=== PATIENT | female | born 1945 | race Caucasian/White ===

== ENCOUNTER 2023-03-05 13:53 | Outpatient (OUT) | payer MEDICARE, SELFPAY ==
--- NOTE | 2023-03-05 14:08 | MM_ITS ---
Patient: WILEY RAYMUNDO Exam Date: 03/05/2023 : 1945 Gender:F Ordering : DR ANJELICA SCHWARTZ Admission #: [id number] Family : Order #: [id number] CLICK HERE TO VIEW EXAM RADIOLOGY REPORT PROCEDURE: MM TOMOSYNTHESIS SCREENING BI COMPARISON: MG MAMM SCREEN ARINAA W CAD, 08/27/2017. MG MAMM SCREEN ARIANA W CAD, 02/02/2015. MG MAMM SCREEN ARIANA W CAD, 08/15/2013. MG MAMM SCREEN ARIANA W CAD, 08/30/2010. INDICATIONS: Mammogram screening Z12.31 Calculator Name NCI Breast Cancer Risk Assessment Tool 5 Year Breast Cancer Risk 1.20% Lifetime Breast Cancer Risk 1.80% Personal Breast Cancer No Personal Ovarian Cancer No Treatments None Family Cancers Mother with unknown cancer at age ~65. LOCATION: [facility] BREAST COMPOSITION: Almost entirely fatty. FINDINGS: DIAGNOSTIC CATEGORY 2--BENIGN FINDING: RIGHT BREAST: No significant suspicious finding. No significant change has occurred. LEFT BREAST: No significant suspicious finding. Scattered benign-appearing lymph nodes are present. No significant change has occurred. RECOMMENDATIONS: ROUTINE MAMMOGRAM AND CLINICAL EVALUATION IN 12 MONTHS. PLEASE NOTE: A NORMAL MAMMOGRAM DOES NOT EXCLUDE THE POSSIBILITY OF BREAST CANCER. A CLINICALLY SUSPICIOUS PALPABLE LUMP SHOULD BE BIOPSIED. Dictated by: Jose Casarez M.D. on 03/10/2023 at 12:44 Approved by: Jose Casarez M.D. on 03/10/2023 at 13:20
== END 2023-03-05 13:54 ==
PROVIDERS: PCP Family Medicine; Visit Provider Family Medicine
DX: Z12.31 Encounter for screening mammogram for malignant neoplasm of breast (principal); Z80.9 Family history of malignant neoplasm, unspecified
CPT/HCPCS: 77063; 77067

== ENCOUNTER 2024-02-02 18:44 | Emergency (ER) | payer MEDICARE, SELFPAY ==
[2024-02-02 19:03] VITALS: BP 142/88; PULSE 58; TEMP 36.8; O2SAT 97; BMI 25.4
--- NOTE | 2024-02-02 19:23 | ED_ITS ---
HPI HPI - Extremity Injury (Upper) General Chief Complaint: Extremity Injury, Upper Stated Complaint: Upper Extremity injury Time Seen by Provider: 02/02/24 19:22 Mode of arrival: Wheelchair History of Present Illness HPI narrative: This 79-year-old female who is on Eliquis for history of atrial fibrillation and also takes baby aspirin presents for evaluattion of bleeding from a laceration that occurred around 3:30 PM. The patient's neighbors dogs were outside playing and became excited when they saw her and jumped on her. One of the dogs fingernails struck her on the right forearm causing bleeding from that site. There has been his rapid several times the bleeding has not stopped. She denies any chest pain or shortness of breath. She has approximately 1.5 cm V-shaped laceration to the right mid forearm. She has no numbness or tingling. She did not fall when she was injured. Related Data Home Medications ?Medication ?Instructions ?Recorded ?Confirmed apixaban 5 mg tablet (Eliquis) 5 mg PO Q12H 02/02/24 02/02/24 Allergies Allergy/AdvReac Type Severity Reaction Status Date / Time ezetimibe [From Zetia] Allergy Cramping Verified 02/02/24 19:09 of the Muscles Opioid HPI Opioid Management Most Recent Pain and Opioid Data: No Data to Display Review of Systems ROS Status of ROS 10 or more systems reviewed and unremark able except as noted in history and below Exam Narrative Exam Narrative: Nurses note and vital signs reviewed and patient is not hypoxic.She is mildly bradycardic with a pulse of 58 General: The patient appears well and in no apparent distress. She has a resting tremor. Skin: Warm, dry, no pallor noted. There is no rash noted. Head: Normocephalic, atraumatic Eye: Normal conjunctiva, no drainage, EOMI. PERRLa Cardiovascular: Regular Rate and Rhythm S1S2, no murmurs, rubs or gallops Respiratory: Patient is in no distress, no accessory muscle use, lungs are clear to auscultation, no wheezing, rales or rhonchi Back: non-tender, no CVA tenderness bilaterally to percussion. GI: Normal bowel sounds, no tenderness to palpation, no masses appreciated. No rebound, guarding, or rigidity noted. Musculoskeletal: 1.5 cm V shaped laceration with mild active bleeding at the mid right forearm, N/V/M intact Neurological: A&O x4, normal speech Psychiatric: Cooperative Constitutional Vital Signs, click to edit/add: Last Vital Signs Temp 98.2 F 02/02/24 19:03 Pulse 58 L 02/02/24 19:03 Resp 18 02/02/24 19:03 BP 142/88 H 02/02/24 19:03 Pulse Ox 97 02/02/24 19:03 Course Vital Signs Vital signs: Vital Signs Temperature 98.2 F 02/02/24 19:03 Pulse Rate 58 L 02/02/24 19:03 Respiratory Rate 18 02/02/24 19:03 Blood Pressure 142/88 H 02/02/24 19:03 Pulse Oximetry 97 02/02/24 19:03 Temperature 98.2 F 02/02/24 19:03 Pulse Rate 58 L 02/02/24 19:03 Respiratory Rate 18 02/02/24 19:03 Blood Pressure 142/88 H 02/02/24 19:03 Pulse Oximetry 97 02/02/24 19:03 Discharge Plan Discharge Stand Alone Forms: Portal Instructions Chief Complaint: Extremity Injury, Upper Clinical Impression: Forearm laceration Patient Disposition: Home, Self-Care Time of Disposition Decision: 20:46 Condition: Good Prescriptions / Home Meds: No Action Eliquis 5 mg tablet 5 mg PO Q12H Print Language: Occitan Instructions: Laceration Without Closure (ED) Additional Instructions: Keep the dressing in place for 24 hours before removing it. Replace steri-strips and gauze as needed for recurrent bleeding. Return to the ED as needed for recurrent bleeding or any concerns. Referrals: SONJA QUEZADA [Primary Care Provider] - 1 week Procedures ED Procedure Instructions Procedures Procedures: Procedure note: right forearm laceration repair; The dressing that was applied at home was taken down revealing a large clots. This was removed and the laceration was evaluated. There is mild active bleeding. The forearm was cleaned with Hibiclens and water and gelfoam was applied topically and a pressure dressing was placed over the site. This did not stop the bleeding and I attemp malina to apply skin adhesive glue but the bleeding persisted. A Quik Clot gauze was then applied topically and another pressure dressing was applied. On re- evaluation, the bleeding has decreased and 3 1/2 inch steri strips were applied over the laceration site and another piece of Quik Clot gauze and pressure dressing was applied. The wound was re-evaluated and there is no active bleeding Through the gauze. This dressing was not taken down. The patient was instructed to leave the dressing in place for at least 24 hours. She was given extra Steri-Strips, gauze and Coban to use if there is recurrent bleeding. She was also instructed to return to emergency department if the bleeding soaks through the gauze.Tetanus was updated in emergency department and she was discharged home with her .
[2024-02-02] MEDS: ADACEL DIPH,PERTUSS(ACELL),TET VAC/PF 0.5 ML ADULT SYRINGE IM (21:00)
[2024-02-02 21:07] VITALS: BP 132/78; PULSE 87; O2SAT 97
== END 2024-02-02 21:00 | disposition home or self-care (01) ==
PROVIDERS: Emergency Provider Emergency Medicine; PCP Family Medicine
DX: S51.811A Laceration without foreign body of right forearm, initial encounter (principal); W54.1XXA Struck by dog, initial encounter; Z23 Encounter for immunization; Z79.01 Long term (current) use of anticoagulants; Z79.82 Long term (current) use of aspirin; I48.91 Unspecified atrial fibrillation
CPT/HCPCS: 12001; 90471; 90715; 99283

== ENCOUNTER 2024-03-08 12:36 | Outpatient (OUT) | payer MEDICARE, SELFPAY ==
--- NOTE | 2024-03-08 12:40 | MM_ITS ---
Patient Name: WILEY RAYMUNDO MR#: [id number] : 1945 Exam Date: 03/08/2024 Ordering Doctor: DR. SONJA QUEZADA . RADIOLOGY REPORT PROCEDURE: MM TOMOSYNTHESIS SCREENING BI COMPARISON: MG MAMM SCREEN ARIANA W CAD, 08/27/2017. MM TOMOSYNTHESIS SCREENING BI, 03/05/2023. INDICATIONS: Screening Calculator Name NCI Breast Cancer Risk Assessment Tool 5 Year Breast Cancer Risk 1.20% Lifetime Breast Cancer Risk 1.70% Personal Breast Cancer No Personal Ovarian Cancer No Treatments None Family Cancers Mother with unknown cancer at age ~65. LOCATION: [facility] BREAST COMPOSITION: The breasts are almost entirely fatty. FINDINGS: DIAGNOSTIC CATEGORY 1--NEGATIVE. NO CHANGE FROM COMPARISON ASSESSMENT. Scattered benign-appearing calcifications are present. RIGHT BREAST: No significant suspicious finding. LEFT BREAST: No significant suspicious finding. RECOMMENDATIONS: ROUTINE MAMMOGRAM AND CLINICAL EVALUATION IN 12 MONTHS. PLEASE NOTE: A NORMAL MAMMOGRAM DOES NOT EXCLUDE THE POSSIBILITY OF BREAST CANCER. A CLINICALLY SUSPICIOUS PALPABLE LUMP SHOULD BE BIOPSIED. Dictated by: Edwardo Baron MD on 03/08/2024 at 13:50 Approved by: Edwardo Baron MD on 03/08/2024 at 13:51
--- NOTE | 2024-03-08 12:41 | XR_ITS ---
[address] [address] Patient Name: WILEY RAYMUNDO MRN: [id number] date: 1945 Sex: F Assigned Patient Location: MAMM Current Patient Location: 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 TECHNIQUE: Dual-energy X-ray absorptiometry (DEXA) bone density study performed for the axial skeleton. 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 Young adult T score -2.6. WHO classification: Osteoporosis. Lowest bone mineral density right femoral trochanter measuring 0.469 g/sq cm. T score -3.3. WHO classification: Osteoporosis XR/XR DEXA axial skeleton IMPRESSION: Osteoporosis. High fracture risk Electronically authenticated by: MATT WU Date: 03/08/2024 13:30
== END 2024-03-08 12:37 | disposition home or self-care (01) ==
LOC: MAMMO 12:37
PROVIDERS: PCP Family Medicine; Visit Provider Family Medicine
DX: Z12.31 Encounter for screening mammogram for malignant neoplasm of breast (principal); E28.39 Other primary ovarian failure; Z80.8 Family history of malignant neoplasm of other organs or systems; M81.0 Age-related osteoporosis without current pathological fracture
CPT/HCPCS: 77063; 77067; 77080

== ENCOUNTER 2025-06-08 14:06 | Outpatient (OUT) | payer MEDICARE, SELFPAY ==
--- NOTE | 2025-06-08 14:10 | MM_ITS ---
Patient Name: WILEY RAYMUNDO MR#: [id number] : 1945 Exam Date: 06/08/2025 Ordering Doctor: DAVID NERI . RADIOLOGY REPORT PROCEDURE: MM TOMOSYNTHESIS SCREENING BI COMPARISON: MM TOMOSYNTHESIS SCREENING BI, 03/08/2024. MM TOMOSYNTHESIS SCREENING BI, 03/05/2023. MG MAMM SCREEN ARIANA W CAD, 08/27/2017. MG MAMM SCREEN ARIANA W CAD, 08/30/2010. INDICATIONS: screening Calculator Name NCI Breast Cancer Risk Assessment Tool 5 Year Breast Cancer Risk 1.10% Lifetime Breast Cancer Risk 1.50% Personal Breast Cancer No Personal Ovarian Cancer No Treatments None Family Cancers Mother with unknown cancer at age ~65. LOCATION: [facility] BREAST COMPOSITION: There are scattered areas of fibroglandular density. FINDINGS: DIAGNOSTIC CATEGORY 1--NEGATIVE. RIGHT BREAST: No significant suspicious finding. LEFT BREAST: No significant suspicious finding. RECOMMENDATIONS: ROUTINE MAMMOGRAM AND CLINICAL EVALUATION IN 12 MONTHS. Dictated by: Edy Cornejo DO on 06/08/2025 at 15:28 Approved by: Edy Cornejo DO on 06/08/2025 at 15:29
--- OUTSIDE RECORDS SUMMARY | 2025-06-08 14:35 | XMS_ITS | CCD ---
Author Organization [facility] Care Team Providers Care Coal Equipment Operator Name Role Phone Fortunato Schwartz Unavailable Unavailable Unavailable HEBER RUTH Attending Unavailable HEBER RUTH Admitting Unavailable DR GRETCHEN DAVIS Primary Care Unavailable Tish Smith Consulting Unavailable HEBER [facility] Consulting Unavailable Fortunato Schwartz MD Primary Care Provider Edwardo Rodriguez Jr. Unavailable [phone] Fortunato Schwartz MD Primary Care Provider Edwardo Rodriguez Jr. Unavailable Fortunato Schwartz MD Primary Care Provider Michael Valenzuela DO, David L Unavailable Fortunato Schwartz Primary Care Unavailab Dr. Michele Daniels Referring Unavailable Dr. Michele Sol Attending Unavailable Dr. Michele Sol Attending Unavailable Fortunato Schwartz Primary Care Unavailab Dr. Michele Daniels Referring Unavailable Fortunato Schwartz MD Primary Care Provider Michael Valenzuela DO, David L Unavailable [phone] Dr. Michele Sol Attending Dr. Fortunato Carson Primary Care Fortunato Carson MD Primary Care Provider Sonja Quezada Primary Care Physician [phone] Fortunato Schwartz MD Primary Care Provider Sonja Quezada MD Primary Care Provider Fortunato Schwartz MD Primary Care Unavailable Fortunato Schwartz MD Primary Care Unavailable CARMELA MUNSON Primary Care Unavailable NON STAFF Primary Care Provider UnavailBladimir Clarke DO Emergency Provider [phone] Erwin Childers DO Emergency Provider [phone] Sonja Quezada MD Primary Care Provider Marcos Neves DO Admit Provider [phone] Acosta Bo MD Attending Provider Natty Stout MD Referring Provider Sonja Quezada Primary Care Unavailable Erwin Childers Attending Unavailable Erwin Childers Admitting Unavailable Sonja Quezada Primary Care Unavailable Natty Stout Referring Unavailable Acosta Bo Attending Unavailab Eliezer Londono Unavailable Marcos Neves Admitting UnavailSonja Ramirez MD Primary Care Provider MICHELE SOL Attending Unavailable MICHELE SOL Referring Unavailable FORTUNATO SCHWARTZ Primary Care Unavailab GILBERTO Olmedo Referring Unavailable SONJA QUEZADA Primary Care Unavailable GILBERTO GAONA Referring Unavailable SONJA QUEZADA Primary Care Unavailable GILBERTO GAONA Referring Unavailable DAMIEN SONJACHRISTOPHER MCRAE Primary Care Unavailable GILBERTO GAONA Attending Unavailable SONJA QUEZADA Primary Care Unavailable MD Sonja Quezada Attending Unavailable BRAULIO Guardado Attending Unavailable MD Sonja Quezada Attending Unavailable MD Sonja Quezada Attending Unavailable MD Sonja Quezada Attending Unavailable MD Sonja Quezada Attending Unavailable MD Sonja Quezada Attending Unavailable MD Sonja Quezada Attending Unavailable MD Sonja Quezada Attending Unavailable MD Sonja Quezada Admitting Unavailable MD Sonja Quezada Attending Unavailable BRAULIO Guardado Attending Unavailable TEMO DAVIS Attending Unavailable NORBERT DAILEY Referring Unavailable SONJA QUEZADA Primary Care Unavailable MATTHEW OSBORN Attending Unavailable NORBERT DAILEY Referring Unavailable SONJA QUEZADA Primary Care Unavailable NORBERT DAILEY Referring Unavailable SONJA QUEZADA Primary Care Unavailable NORBERT DAILEY Attending Unavailable Allergies Allergy Classification Reported Allergen(s) Allergy Type Date of Onset Reaction(s) Facility (7 sources) Angiotensin Converting Enzyme (Osbaldo) Inhibitors; Translations: [OSBALDO Inhibitors] Allergy to drug (finding) 3 [facility] 3 Repository (20 sources) ezetimibe; Translations: [Zetia] Drug Allergy 9 Other: See Comments, Other [facility] (6 sources) Hmg-Coa Reductase Inhibitors (Statins) All[facility] drug [facility]finding[facility] Work Phone: (11 sources) Metoprolol; Translations: [metoprolol] Drug Allergy 3 Shortness of breath [facility] 250 DO Work Phone: (20 sources) Ethanol; Translations: [Alcohol] Drug Allergy 9 [facility] (4 sources) Angiotensin-con verting enzyme inhibitor agent Drug Intolerance 3 [facility] (5 sources) HMG-CoA reductase inhibitor; Translations: [GAZIPBS-IDF-HG A REDUCTASE INHIBITORS] Drug Allergy 3 [facility] Work Phone: (2 sources) atorvastatin; Translations: [atorvastatin] Drug Allergy [facility] (2 sources) Cetirizine; Translations: [cetirizine] Drug Allergy [facility] (1 source) Alcohol 1 Propensity to adverse reactions to substance [facility] Comment on above: cannot drink any alc ohol (1 source) Ethanol; Translations: [ethanol] Drug Allergy [facility] (5 sources) ezetimibe; Translations: [ezetimibe] Drug Allergy 9 Muscle Pain [facility] (2 sources) ethyl alcohol; Translations: [ethyl alcohol] Allergy to substance 5 [facility] Comment on above: Gets hives all over her abdomen from wine, and other forms of alcohol. (2 sources) Hfmgoep-FJK-NqF Reductase Inhibitor; Translations: [Whoxwcs-KHQ-Uc A Reductase Inhibitor] Allergy to substance 5 [facility] (3 sources) Sotalol; Translations: [SOTALOL] Drug Allergy 5 Shortness of breath, Other, Blurred vision [facility] Medications Current Medications Medication Drug Class(es) Dates Sig (Normalized) Sig (Original) ALPRAZolam 0.5 mg oral tablet (20 sources) Benzodiazepine Start: 05-27-2019 ALPRAZolam (XANAX) 0.5 mg tablet 05/27/2019 Active Start: 05-27-2019 ALPRAZolam (XA NAX) 0.5 mg tablet 05/27/2019 Active apixaban 5 mg oral tablet (20 sources) Factor Xa Inhibitor Start: 02-17-2025 take 1 tablet by mouth twice daily Apixaban (Eliquis) 5 mg Tablet Active 5 MG PO Twice daily 60 February 17, 2025 1:53pm Start: 10-13-2023 End: 04-07-2022 Eliquis 5 mg oral tablet 5 m g = 1 tab(s), Oral, BID, Oral, 0 Refill(s), Refills(s) 0 Start Date: 10/13/23 Status: Ordered Start: 11-25-2021 End: 02-17-2025 take 1 tablet by mouth twice daily Apixaban (Eliquis) 5 mg Tablet Discontinued 5 MG PO Twice daily November 25, 2021 1:00am February 17, 2025 1:53pm apixaban (ELIQUI S ORAL) Take 5 mg by mouth. 0 Active Comment on above: Take 5 mg by mouth. Take 5 mg by mouth t wice daily. aspirin 81 mg chewable tablet (20 sources) Platelet Aggregation Inhibitor, Nonsteroidal Anti-inflammatory Drug Start: 02-17-2025 take 1 tablet by mouth once daily Aspirin (Children's Aspirin) 81 mg Tablet,Chewable Active 81 MG PO Daily 0 February 17, 2025 12:00am Start: 11-25-2021 End: 02-17-2025 Aspirin 81 mg Capsule Discon tinued 81 MG PO .mwf November 25, 2021 1:00am February 17, 2025 1:59pm take 1 tablet by silvia three times weekly aspirin, enteric coated (ASPIRIN, ENTERIC COATED) 81 mg EC tablet Take 81 mg by mouth three times a week. Active End: 04-07-2022 take 1 tablet by mouth once daily aspirin 81 mg EC tablet Take 1 tablet (81 mg) by mouth once daily. Active Comment on above: Take 81 mg by mouth once daily. Take 81 mg by mouth three times a week. chondroitin sulfates 400 mg / glucosamine hydrochloride 500 mg oral tablet (3 sources) take 2 tablets by mouth once daily glucosamine-chondroi tin 500-400 mg tablet Take 2 tablets by mouth once daily. Active clopidogrel 75 mg oral tablet (5 sources) P2Y12 Platelet Inhibitor Start: End: take 1 tablet by mouth once daily clopidogrel (Plavix) 75 mg tablet Indications: Paroxysmal atrial fibrillation (Multi) Take 1 tablet (75 mg) by mouth once daily. 90 tablet 3 02/22/2025 02/22/2026 Active Start: 02-17-2025 take 1 tablet by [facility] once daily Clopidogrel 75 mg Tablet Active 75 MG PO Daily February 17, 2025 12:00am Start: 10-15-2020 Clopidogrel Bi sulfate 75 MG Oral Tablet Quantity: 90 Refills: 0 Ordered: 15-Oct-2020 DO Start : 15-Oct-2020 Complete esomeprazole 40 mg delayed release oral capsule (20 sources) Proton Pump Inhibitor Start: 06-25-2021 End: 10-03-2024 esomeprazole (NEXIUM) 40 mg capsule TAKE 1 CAPSULE TWICE DAILY 180 capsule 3 10/03/2024 Active Start: 06-24-2021 take 1 capsule by [facility] once daily Esomeprazole Magnesium 40 mg capsule,delayed release(DR/EC) Active 40 MG PO Daily November 25, 2021 1:00am Comment on above: TAKE 1 CAPSULE TWICE DAILY Take 1 capsule by [facility] twice daily. fluticasone propionate 0.05 mg/actuat metered dose nasal spray (20 sources) Corticosteroid Start: 08-02-2021 Fluticasone Propionate 50 MCG/ACT Nasal Suspension USE DIRECTED. Quantity: 0 Refills: 0 Ordered: 02-Aug-2021 DO Start : 02-Aug-2021 Active Start: 05-09-2019 fluticasone (F LONASE) 50 mcg/actuation nasal spray 05/10/2019 Active furosemide 40 mg oral tablet (20 sources) Loop Diuretic Start: 05-09-2019 furosemide (LASIX) 40 mg tablet 05/10/2019 Active levocetirizine dihydrochloride 5 mg oral tablet (5 sources) Histamine-1 Receptor Antagonist Start: 05-13-2023 take 1 tablet by mouth once daily Levocetirizine 5 mg tablet Active 5 MG PO Daily December 05, 2024 12:00am levothyroxine sodium 0.075 mg oral tablet (20 sources) l-Thyroxine Start: 06-10-2019 levothyroxine (SYNTHROID) 75 mcg tablet 06/10/2019 Active Start: 06-09-2019 loratadine 10 mg disintegrating oral tablet (2 sources) End: 06-07-2024 take 1 tablet by mouth once daily loratadine (Claritin Reditabs) 10 mg disintegrating tablet Take 1 tablet (10 mg) by mouth once daily. 06/07/2024 Discontinued (Therapy completed) losartan potassium 25 mg oral tablet (20 sources) Angiotensin 2 Receptor Chloé Start: 05-09-2019 End: 02-17-2025 losartan (COZAAR) 25 mg tablet 05/10/2019 Active lovastatin 20 mg oral tablet (3 sources) HMG-CoA Reductase Inhibitor Start: 12-19-2024 End: 03-08-2026 take 1 tablet by mouth once daily at mealtime lovastatin (Mevacor) 20 mg tablet Indications: Mixed hyperlipidemia Take 1 tablet (20 mg) by mouth once daily in the evening. Take with meals. 90 tablet 3 03/08/2025 03/08/2026 Active magnesium glycinate 100 mg magnesium capsule (1 source) take 2.4 capsules by mouth once daily magnesium glycinate 100 mg magnesium capsule Take 2.4 capsules (240 mg) by mouth once daily. Active 24 hr metoprolol succinate 50 mg extended release oral tablet (20 sources) beta-Adrenergic Chloé Start: 11-21-2022 End: 12-21-2022 take 1 tablet by mouth once daily metoprolol succinate ER (TOPROL XL) 50 mg 24 hr tablet Take 1 tablet by mouth once daily. 30 tablet 11/21/2022 Active Comment on above: Take 1 tablet by silvia th once daily. Miscellaneous Medical Supply ([employer]LL [employer]RA[employer] SUPERVISOR AND CONTAINER) (20 sources) Start: 08-05-2022 Miscellaneous Medical Supply ([employer] SUPERVISOR AND CONTAINER) To crush pills, dissolve in water and take it 1 Each 08/05/2022 Active Start: 08-05-2022 Miscellaneous Medical Supply ([employer] SUPERVISOR AND CONTAINER) To crush pills, dissolve in water and take it 1 Each 0 08/05/2022 Active Comment on above: To crush pills, diss olve in water and take it nitroglycerin 0.4 mg sublingual tablet (1 source) Nitrate Vasodilator Start: 02-18-20 Nitroglycerin 0.4 mg Tablet, Sublingual Active 0.4 MG SUBLINGUAL Q5M as needed for Chest Pain February 17, 2025 12:00am pitavastatin calcium 2 mg oral tablet (20 sources) HMG-CoA Reductase Inhibitor Start: 11-25-19 End: 03-08-20 take 1 tablet by mouth once daily Pitavastatin Calcium (Livalo) 2 mg Tablet Active 2 MG PO Daily November 25, 2021 1:00am Comment on above: Take 1 tablet by silvia th once daily. potassium 99 mg extended release oral tablet (20 sources) Start: 11-25-19 take 1 tablet by mouth once daily Potassium 99 mg Tablet Active 99 MG PO Daily November 25, 2021 1:00am Start: 11-25-2021 Potassium 99 m g Tablet Active MG TABLET November 25, 2021 1:00am take 300 mg by mouth once daily POTASSIUM ORAL Take 300 mg by mouth once daily. Active take 1 tablet by silvia th three times daily Potassium 99 MG Oral Tablet TAKE 1 TABLET 3 times daily Quantity: 0 Refills: 0 Ordered: 13-Aug-2021 DO Active take 300 mg by mouth once daily POTASSIUM ORAL Take 300 mg by mouth once daily. 0 Active Comment on above: Take 300 mg by mouth once daily. potassium citrate (5 sources) Start: 10-13-2023 potassium citr ate See Instructions, 99 twice a day, Refills(s) 0 Start Date: 10/13/23 Status: Ordered take 1 tablet by mouth twice homer ly potassium citrate 99 mg capsule Take 1 tablet by mouth 2 times a day. Active take 1 tablet by mouth three es daily potassium citrate 99 mg capsule Take 1 tablet by mouth 3 times a day. Active SITagliptin 100 mg oral tablet (20 sources) Dipeptidyl Peptidase 4 Inhibitor Start: 11-11-2020 take 1 tablet by mouth once daily SITagliptin phosphate (Januvia) 100 mg tablet Take 1 tablet (100 mg) by mouth once daily. 11/12/2020 Active Comment on above: Take 100 mg by mouth once daily. sotalol hydrochloride 80 mg oral tablet (1 source) Antiarrhythmic Start: 02-17-2025 take 1 tablet by mouth twice daily Sotalol 80 mg Tablet Active 80 MG PO Twice daily 60 February 17, 2025 12:00am vitamin b12 0.1 mg oral tablet (2 sources) Vitamin B12 End: 06-07-2024 take 1 tablet by mouth once daily cyanocobalamin (Vitamin B-12) 100 mcg tablet Take 1 tablet (100 mcg) by mouth once daily. 06/07/2024 Discontinued (Therapy completed) Walker (ULTRA-LIGHT ROLLATOR) misc (20 sources) Start: 08-05-2022 Walker (ULTRA-LIGHT ROLLATOR) misc For mobility and to prevent fall 1 Each 08/05/2022 Active Start: 08-05-2022 Walker (ULTRA- LIGHT ROLLATOR) misc For mobility and to prevent fall 1 Each 0 08/05/2022 Active Comment on above: For mobility and to prevent fall Completed/Discontinued Medications Medication Drug Class(es) Dates Sig (Normalized) Sig (Original) amoxicillin 500 mg oral capsule (2 sources) Penicillin-class Antibacterial Start: 05-28-2021 take 1 capsule by mouth every eight hours Amoxicillin 500 MG Oral Capsule TAKE 1 CAPSULE BY MOUTH EVERY 8 HOURS UNTIL GONE Quantity: 30 Refills: 0 Ordered: 28-May-2021 DO Start : 28-May-2021 Complete amoxicillin 875 mg / clavulanate 125 mg oral tablet (2 sources) Penicillin-class Antibacterial Start: 12-05-2024 End: 02-11-2025 take 1 tablet by mouth twice daily Amoxicillin-Pot Clavulanate 875-125 mg tablet Discontinued 1 TAB PO Twice daily 10 December 05, 2024 12:00am February 11, 2025 1:19pm azithromycin 250 mg oral tablet (2 sources) Macrolide Antimicrobial Start: 12-05-2024 End: 02-11-2025 take 2 tablets by mouth once daily Azithromycin 250 mg tablet Discontinued 250 MG PO Daily 4 December 05, 2024 12:00am February 11, 2025 1:19pm start on day 2 of therapy ciprofloxacin 3 mg/ml ophthalmic solution (2 sources) Quinolone Antimicrobial Start: 03-25-2021 take 1 drop(s) into the eye(s) four times daily Ciprofloxacin HCl - 0.3 % Ophthalmic Solution INSTILL 1 DROP into affected eye FOUR TIMES DAILY DIRECTED for 14 days Quantity: 2 Refills: 0 Ordered: 23-May-2021 DO Start : 25-Mar-2021 Complete citalopram 10 mg oral tablet (2 sources) Serotonin Reuptake Inhibitor Start: 03-01-2021 Citalopram Hydrobromide 10 MG Oral Tablet Quantity: 90 Refills: 0 Ordered: 01-Mar-2021 DO Start : 01-Mar-2021 Complete fexofenadine hydrochloride 180 mg oral tablet (20 sources) Histamine-1 Receptor Antagonist Start: 08-02-2021 Allergy Relief 180 MG Oral Tablet Quantity: 90 Refills: 0 Ordered: 02-Aug-2021 DO Start : 02-Aug-2021 Complete Start: 04-22-2019 End: 12-05-2024 take 1 tablet by mouth once daily Fexofenadine 180 mg Tablet Discontinued 180 MG PO Daily November 25, 2021 1:00am December 05, 2024 8:02pm labetalol hydrochloride 5 mg/ml injectable solution (2 sources) beta-Adrenergic Chloé Start: 05-30-2025 End: 05-30-2025 5 mg, INTRAVENOUS, ONCE, 1 dose, On Thu05/30/25 at 1530, Give additional 5 mg if the BP continues to remain high in 10 minutes Protect from Light., Recovery or Phase I (only) Start: 06-13-2024 End: 06-13-2024 take 10 mg intravenously every two hours as needed 10 mg, INTRAVENOUS, EVERY 2 HOURS NEEDED, 1 dose, Starting on Thu06/13/24 at 1615, Until Thu06/13/24 at 1622, Give for blood pressure of:, greater than 170 systolic, Protect from Light., Recovery or Phase I (only) Magnesium (6 sources) take 1 tablet by mouth once daily Magnesium 400 MG Oral Tablet Take 1 tablet daily Quantity: 0 Refills: 0 Ordered: 13-Aug-2021 DO Active magnesium oxide 400 mg oral tablet (4 sources) End: take 1 tablet by mouth once daily magnesium oxide (Mag-Ox) 400 mg tablet Take 1 tablet (400 mg) by mouth once daily. 03/08/2025 Discontinued (Discontinued by another clinician) 2 ml ondansetron 2 mg/ml injection (1 source) Serotonin-3 Receptor Antagonist Start: 5 End: 5 4 mg, INTRAVENOUS, ONCE, 1 dose, On Thu05/30/25 at 1530, Give IV push over 2 minutes, Recovery or Phase I (only) Start: 05-30-2025 End: 05-30-2025 4 mg, INTRAVENOUS, ONCE, 1 d ose, On Thu05/30/25 at 1530, Give IV push over 2 minutes, Recovery or Phase I (only) rivaroxaban 20 mg oral tablet (2 sources) Factor Xa Inhibitor Start: 12-04-2020 take 1 tablet by mouth once daily Xarelto 20 MG Oral Tablet TAKE 1 TABLET BY MOUTH DAILY Quantity: 90 Refills: 0 Ordered: 04-Dec-2020 DO Start : 04-Dec-2020 Active ubidecarenone 200 mg oral capsule (12 sources) Start: 10-13-2023 End: 06-07-2024 ubiquinone 200 mg oral capsule 200 mg, Oral, Daily, Oral, 0 Refill(s), Refills(s) 0 Start Date: 10/13/23 Status: Ordered Start: 11-25-2021 End: 02-11-2025 Coenzyme Q10 (Coq-10) 100 mg Capsule Discontinued 100 MG PO Daily November 25, 2021 1:00am February 11, 2025 1:19pm Vitamin B12 TABS (6 sources) Vitamin B12 TABS TAKE 1 TABLET DAILY DIRECTED. Quantity: 0 Refills: 0 Ordered: 13-Aug-2021 DO Active Problems Active Problems Problem Classification Problem Date Documented Date Episodic/Chronic Acute myocardial infarction (2 sources) Myocardial infarction; Translations: [Non-ST elevation (NSTEMI) myocardial infarction] Onset: 02-11-2025 02-17-2025 Chronic Anxiety disorders (20 sources) Generalized anxiety disorder; Translations: [Generalized anxiety disorder] Onset: 04-07-2022 04-07-2022 Chronic Comment on above: Problem List clean-u p per request of Phys. EHR Cmte Cardiac dysrhythmias (20 sources) Paroxysmal atrial fibrillation; Translations: [Atrial fibrillation] Onset: 09-05-2021 09-05-2021 Chronic Cardiac dysrhythmias (3 sources) Bradycardia; Translations: [Bradycardia, unspecified] Onset: 02-28-2025 02-28-2025 Episodic Chronic kidney disease (20 sources) Chronic kidney disease stage 2; Translations: [Chronic kidney disease, stage 2 (mild)] Onset: 04-07-2022 04-07-2022 Chronic Chronic kidney disease (2 sources) Chronic kidney disease; Translations: [Chronic kidney disease, stage 3b (Multi)] Onset: 03-08-2025 Complication of device; implant or graft (16 sources) Arteriosclerosis of coronary artery bypass graft; Translations: [Coronary atherosclerosis of unspecified bypass graft] Onset: 12-22-2022 08-04-2023 Chronic Coronary atherosclerosis and other heart disease (20 sources) Coronary arteriosclerosis; Translations: [Coronary atherosclerosis of unspecified type of vessel, chilkat or graft] Onset: 06-18-2019 Resolved: 06-07-2024 06-18-2019 Chronic Diabetes mellitus with complications (4 sources) Type 2 diabetes mellitus; Translations: [Type 2 diabetes mellitus with other specified complication] Onset: 06-12-2023 03-08-2025 Chronic Diabetes mellitus without complication (20 sources) Diabetes mellitus; Translations: [Diabetes mellitus without mention of complication, type II or unspecified type, not stated as uncontrolled] Onset: 06-18-2019 09-05-2021 Chronic Disorders of lipid metabolism (20 sources) Hyperlipidemia; Translations: [Other and unspecified hyperlipidemia] Onset: 04-07-2022 04-07-2022 Chronic E Codes: Fall (1 source) Unspecified fall, initial encounter; Translations: [UNSPECIFIED FALL INITIAL ENCOUNTER] Onset: 10-01-2021 Episodic Esophageal disorders (20 sources) Barretts esophagus with low grade dysplasia; Translations: [Haji's esophagus with low grade dysplasia] Onset: 09-05-2021 Chronic Comment on above: Problem List clean-u p per request of Phys. EHR Cmte Essential hypertension (20 sources) Benign essential hypertension; Translations: [Benign essential hypertension] Onset: 06-18-2019 06-18-2019 Chronic Headache; including migraine (4 sources) Headache; including migraine; Translations: [HEADACHE UNSPECIFIED] Onset: 09-24-2021 Heart valve disorders (20 sources) Mitral valve regurgitation; Translations: [Nonrheumatic mitral (valve) insufficiency] Onset: 04-07-2022 04-07-2022 Chronic Nonspecific chest pain (3 sources) Chest pain; Translations: [Chest pain, unspecified] Onset: 12-05-2024 12-05-2024 Episodic Other aftercare (3 sources) Long-term current use of anticoagulant; Translations: [dependency counselor (current) use of anticoagulants] Onset: 03-08-2025 03-08-2025 Episodic Other aftercare (1 source) dependency counselor (current) use of anticoagulants; Translations: [alf (current) use of anticoagulants] Onset: 03-08-2025 Episodic Other and unspecified benign neoplasm (2 sources) Mass of digestive structure; Translations: [Polyp of stomach and duodenum] Episodic Other and unspecified benign neoplasm (1 source) Gastric polyp; Translations: [Polyp of stomach and duodenum] Episodic Other hereditary and degenerative nervous system conditions (20 sources) Essential tremor; Translations: [Essential tremor] Onset: 04-07-2022 04-07-2022 Chronic Other hereditary and degenerative nervous system conditions (5 sources) Essential tremor; Translations: [Essential and other specified forms of tremor] Onset: 12-22-2022 02-17-2025 Chronic Other lower respiratory disease (4 sources) Dyspnea; Translations: [Other respiratory abnormalities] Episodic Other lower respiratory disease (2 sources) Dyspnea, unspecified; Translations: [Dyspnea, unspecified] Onset: 12-22-2022 Episodic Other lower respiratory disease (1 source) Shortness of breath; Translations: [Shortness of breath] Onset: 12-05-2024 Episodic Other nervous system disorders (1 source) Tremor; Translations: [Tremor, unspecified] 02-11-2025 Episodic Other nervous system disorders (2 sources) Tremor, unspecified; Translations: [Abnormal involuntary movements] Onset: 02-11-2025 02-17-2025 Episodic Peripheral and visceral atherosclerosis (1 source) Arteriosclerotic vascular disease 10-13-2023 Chronic Residual codes; unclassified (4 sources) Intolerance to drug; Translations: [Other drug allergy] Episodic Residual codes; unclassified (2 sources) Body mass index 20-24 - normal; Translations: [Body mass index (BMI) 24.0-24.9, adult] Onset: 03-08-2025 03-08-2025 Episodic Residual codes; unclassified (2 sources) Body mass index (BMI) 24.0-24.9, adult; Translations: [Body mass index (BMI) 24.0-24.9, adult] Onset: 03-08-2025 Episodic Thyroid disorders (20 sources) Hypothyroidism; Translations: [Hypothyroidism, unspecified] Onset: 09-05-2021 09-05-2021 Chronic Transient cerebral ischemia (20 sources) Transient cerebral ischemia; Translations: [Unspecified transient cerebral ischemia] Onset: 04-07-2022 04-07-2022 Chronic Unclassified (3 sources) Parkinson's disease; Translations: [Parkinson's disease] 11-25-2021 Chronic Unclassified (1 source) A [facility] screening has identified you as FRAIL or AT RISK FOR FRAILTY. This puts you at a higher risk for infection, illness, falls, and other injuries. Here are four ways to help you reduce your risk of frailty: 1. IDENTIFY EARLY SIGNS OF FRAILTY Discuss contributing factors and concerns with your doctor 2. BE ACTIVE Walking and light strengthening exercises will help reduce weakness 3. EAT WELL Aim for three healthy meals a day that are high in protein 4. THINK POSITIVE Keep your mind active by being sociable and continuing to learn References: Stay Strong: Four Ways to Beat the Frailty Risk [email or web address] [email or web address] 02-13-2025 Past or Other Problems Problem Classification Problem Date Documented Da te Episodic/Chronic Coronary atherosclerosis and other heart disease (4 sources) Presence of aortocoronary bypass graft; Translations: [Personal history of surgery to heart and great vessels, presenting hazards to health] Onset: 06-07-2024 02-17-2025 Episodic Open wounds of head; neck; and trunk (20 sources) Laceration of esophagus; Translations: [Laceration without foreign body of pharynx and cervical esophagus, initial encounter] Onset: 08-01-2022 08-05-2022 Episodic Other aftercare (20 sources) Postoperative state; Translations: [Encounter for other specified surgical aftercare] Onset: 07-31-2022 08-05-2022 Episodic Other circulatory disease (20 sources) History of transient ischemic attack; Translations: [Personal history of transient ischemic attack (TIA), and cerebral infarction without residual deficits] Onset: 09-05-2021 09-05-2021 Episodic Other nutritional; endocrine; and metabolic disorders (11 sources) Overweight in adulthood with body mass index of 25 or more but less than 30; Translations: [Overweight] Onset: 06-12-2023 06-12-2023 Episodic Other nutritional; endocrine; and metabolic disorders (4 sources) Overweight; Translations: [Overweight] Onset: 12-22-2022 Episodic Other nutritional; endocrine; and metabolic disorders (3 sources) Body mass index (BMI) 26.0-26.9, adult; Translations: [Body mass index [BMI] 26.0-26.9, adult] Onset: 12-22-2022 Episodic Pneumonia (except that caused by tuberculosis or sexually transmitted disease) (17 sources) Infective pneumonia; Translations: [Pneumonia, unspecified organism] Onset: 07-31-2022 Resolved: 08-05-2022 08-05-2022 Episodic Residual codes; unclassified (20 sources) Insomnia; Translations: [Insomnia, unspecified] Onset: 04-07-2022 04-07-2022 Episodic Residual codes; unclassified (8 sources) Confusional state; Translations: [Unspecified psychosis] Onset: 06-12-2023 06-12-2023 Episodic Respiratory failure; insufficiency; arrest (adult) (17 sources) Acute hypoxemic and hypercapnic respiratory failure; Translations: [Acute respiratory failure with hypoxia] Onset: 07-31-2022 Resolved: 08-05-2022 08-05-2022 Episodic Screening and history of mental health and substance abuse codes (12 sources) Ex-smoker; Translations: [Personal history of tobacco use] Onset: 06-07-2024 06-07-2024 Episodic Comment on above: QUIT APPROX 30 YRS A GO SMOKED 3PPD; Unclassified (4 sources) Onset: 08-04-2023 Resolved: 06-07-2024 08-04-2023 Results Test Name Value Interpretation Reference Range Facility ANES POSTPROC EVALon 025 ANES POSTPROC EVAL HNO ID: [id number] Author: THANIA CHURCH MD Service: ? Author Type: Anesthesiologist Type: Anesthesia Postprocedure Evaluation Filed: 05/30/2025 14:04 Note Text: POST ANESTHESIA EVALUATION NOTE : 1945 Procedure Summary Date: 05/30/25 Room / Location: Gastroenterology Anesthesia Start: 1302 Anesthesia Stop: 1353 Procedure: EGD - THERAPEUTIC, EUS, OR TUBE INTERVENTIONS Diagnosis: Haji's esophagus with low grade dysplasia (Follow-up of previous ablation treatment of Haji's esophagus) Scheduled Providers: Norbert Dailey MD; Thania Church MD; Aura Feldman APRN.LEVEE SUPERINTENDENT Responsible Provider: Thania Church MD Anesthesia Type: MAC ASA Status: 3 Anesthesia Type: MAC Last Vitals Vitals Value Taken Time BP 121/81 05/30/25 13:57 Temp 36 ?C (96.8 ?F) 05/30/25 13:57 Pulse 84 05/30/25 14:02 Resp 18 05/30/25 13:57 SpO2 94 % 05/30/25 14:02 Vitals shown include unfiled device data. Post Anesthesia Patient Status Patient Evaluation: PACU. PACU/ICU Patient Condition: stable. Neurological Status: aware and responsive. Pulmonary Status: breathing comfortably on supplemental oxygen Airway Control: returned to baseline unsupported. Cardiovascular Status: stable. Pain Management: clinically adequate Postoperative Hydration: acceptable. Intraoperative Events: no significant anesthesia events Post Operative Nausea/Vomiting Status: no significant post operative nausea or vomiting Recommendation: continue current plan of care and further care per PACU/ICU/floor team. Anesthesia Observations No Documentation SIGNATURE: Thania Church MD PATIENT NAME: Daniela Raymundo DATE: May 30, 2025 TIME: 2:04 PM CSN: [id number] Normal [facility] ANES PRE-OPon 05-30-2025 ANES PRE-OP HNO ID: [id number] Author: THANIA CHURCH MD Service: ? Author Type: Anesthesiologist Type: Anesthesia Preprocedure Evaluation Filed: 05/30/2025 12:36 Note Text: ANESTHESIOLOGY DAY OF SURGERY NOTE : 1945 Procedure Information Date/Time: 05/30/25 1300 Scheduled providers: Norbert Dailey MD; Thania Church MD; Gaston, Aura J, MILLINERY COPYIST.LEVEE SUPERINTENDENT Procedure: EGD - THERAPEUTIC, EUS, OR TUBE INTERVENTIONS Location: Gastroenterology Estimated body mass index is 22.86 kg/m? as calculated from the following: Height as of this encounter: 160 cm (5' 3 ). Weight as of this encounter: 58.5 kg (129 lb 0.8 oz). Most recent hematocrit and potassium results: Hematocrit 40.3 11/20/2022 Hematocrit (POCT) 48 07/31/2022 Potassium 4.3 11/20/2022 Potassium (POCT) 5.4 07/31/2022 Relevant Problems CARDIO (+) Atrial fibrillation (HCC) (+) Benign essential hypertension (+) CAD (coronary artery disease) (+) HTN (hypertension) (+) Mitral valve insufficiency ENDO (+) Diabetes mellitus, type 2 (HCC) (+) Hypothyroidism -RENAL (+) Stage 2 chronic kidney disease NEURO-PSYCH (+) Transient ischemic attack I - PHYSICAL EVALUATION AIRWAY Patient intubated: No. Tracheostomy tube not present Mallampati: III. TM distance: >3 FB. Neck ROM: full ROM without neurological symptoms. Mouth opening: >3 FB. Short neck: no. Thick neck: no II - ANESTHESIA PLAN ASA Score: 3 Anesthetic Plan: MAC The patient is not a current smoker. NPO Status: adequate Monitoring Plan Monitoring plan: standard ASA. Post Procedure Analgesic Plan Postoperative analgesic plan: multimodal analgesia. Informed Consent Anesthetic risks, benefits, alternatives, personnel and consent discussed: yes. Patient / Responsible Alliance Party agrees to proceed: yes Patient / Surrogate agrees to blood products: blood products not planned Discussed the possibility of lip / dental damage: yes Vitals Value Taken Time BP 150/73 05/30/25 11:49 Pulse 69 05/30/25 11:49 Resp 20 05/30/25 11:49 Temp 36.3 ?C (97.3 ?F) 05/30/25 11:49 SpO2 95 % 05/30/25 11:49 Outpatient Medications as of 05/30/2025 Medication Sig esomeprazole (NEXIUM) 40 mg capsule TAKE 1 CAPSULE TWICE DAILY metoprolol succinate ER (TOPROL XL) 50 mg 24 hr tablet Take 1 tablet by mouth once daily. (Patient not taking: Reported on 03/29/2024) Miscellaneous Medical Supply ([employer] SUPERVISOR AND CONTAINER) To crush pills, dissolve in water and take it Walker (ULTRA-LIGHT ROLLATOR) [facility] [place] and to prevent fall apixaban (ELIQUIS) 5 mg tab(s) Take 5 mg by mouth twice daily. aspirin, enteric coated (ASPIRIN, ENTERIC COATED) 81 mg EC tablet Take 81 mg by mouth three times a week. ALPRAZolam (XANAX) 0.5 mg tablet fluticasone (FLONASE) 50 mcg/actuation nasal spray furosemide (LASIX) 40 mg tablet ACCU-CHEK FASTCLIX LANCET DRUM lancets levothyroxine (SYNTHROID) 75 mcg tablet losartan (COZAAR) 25 mg tablet pitavastatin (LIVALO) 2 mg tablet Take 1 tablet by mouth once daily. SITagliptin (JANUVIA) 100 mg tablet Take 100 mg by mouth once daily. POTASSIUM ORAL Take 300 mg by mouth once daily. No current facility-administered medications on file as of 05/30/2025. I have interviewed and examined the patient. I have reviewed the medical record and/or the pre-anesthesia evaluation, pertinent labs, and test results. This contains updated information obtained within 48 hours of Surgery/Procedure. SIGNATURE: Thania Church MD PATIENT NAME: Daniela Raymundo DATE: May 30, 2025 TIME: 12:17 PM CSN: [id number] Normal [facility] EGD Study observation Narrat iveon 05-30-2025 [facility] Radiology Study observation (narrative) [facility] GLUCOSE, BLOOD (POC)on 05-30 Glucose [Mass/Vol] 118 mg/dL Abnormal 74 - 99 mg/dL [facility] Comment on above: Location:[place] [address] The Accu-Chek Inform II glucose meter has not been approved for testing on patients receiving intensive medical intervention or therapy and results from this point of care glucose test should not be used for patient management decisions in these cases. Inaccurate results may also occur from other interfering factors, such as N-acetylcysteine (blood concentrations of greater than 5mg/dL), galactose, extremes of hematocrit (<10 or >65), or high doses of ascorbic acid (vitamin C) greater than 3mg/dL. Consider alternate testing mechanisms (e.g. core lab, blood gas instrument) in the above situations. Interpretation and review of laboratory results Abnormal [facility] HISTORY PHYSICALon HISTORY PHYSICAL HNO ID: [id number] Author: NORBERT DAILEY MD Service: Gastroenterology Author Type: Physician Type: H&P Filed: 05/30/2025 12:53 Note Text: HISTORY AND PHYSICAL Daniela Raymundo, 80 year old female Current history and physical on file: No Is a new History and Physical required for today's visit? Yes Indication for procedure: Haji's esophagus PROCEDURE(S) SCHEDULED FOR: EGD (Esophagogastroduodenoscop y) with or without biopsies, removal of polyps or lesions, dilation ( any means), treatment of bleeding ( any means), Barrx treatment of Sarthak's Esophagus, image tube placement or cryo therapy treatment based on clinical findings. BASELINE BEHAVIOR: Calm BASELINE ORIENTATION: A AND O x3 All medications and allergies reviewed: Yes Skin Assessment: Warm dry mucus membranes pink Airway/Respiratory Assessment: Airway: visualization of the uvula- Yes Mouth: opening greater than 2 fingerbreadths- Yes Neck: full range of motion- Yes Breath sounds clear/equal- Yes Cardiac Assessment: Regular rate and rhythm without murmur Abdominal Assessment: Abdomen soft, non-tender, no masses or organomegaly. Sedation Plan: MAC Additional Comments: None Norbert Dailey II, MD Normal [facility] NURSING PROGon 05-30-2025 NURSING PROG HNO ID: [id number] Author: XIN BILLINGSLEY LPN Service: Gastroenterology Author Type: Licensed Nurse Type: Nursing Progress Note Filed: 05/30/2025 14:00 Note Text: AMBULATORY PATIENT EDUCATION NOTE TOPIC: GI PROCEDURES: Esophagogastroduodenoscopy (EGD) with or without biopies based on clinical findings, removal of polyps or lesions READINESS TO LEARN INSTRUCTION PROVIDED TO: Patient and family member COGNITIVE ABILITY: Alert and oriented PTED MOTIVATION TO LEARN: Interested FAMILY SUPPORT: High - Very involved in pt care IPATIENT LEARNS BEST BY: Written Instruction - Hand-outs Verbal Instruction FACTORS AFFECTING LEARNING: None PHYSICAL LIMITATIONS AFFECTING LEARNING: None LEARNING RESPONSE METHOD OF INSTRUCTION: Individual instruction PATIENT / FAMILY RESPONSE: Verbalizes understanding of: WORSENING CONDITION-Signs and symptoms of a worsening condition that warrant a call to the physician FOLLOW-UP PLAN: Patient instructed to call with any further issues SUPPLEMENTAL MATERIAL: Procedure Discharge Instructions REFERRAL (RECOMMENDATION): None Electronically Signed By: Xin Billingsley LPN [facility] NURSING PROG HNO ID: [id number] Author: FERNANDO NEUMANN, RN Service: Gastroenterology Author Type: Registered Nurse Type: Nursing Progress Note Filed: 05/30/2025 11:55 Note Text: PRE OP LEARNING ASSESSMENT PROCEDURE/SURGERY: GI PROCEDURES: EGD READINESS TO LEARN COGNITIVE ABILITY: Alert and oriented MOTIVATION TO LEARN: Interested FAMILY SUPPORT: High - Very involved in pt care PATIENT LEARNS BEST BY: Verbal Instruction FACTORS AFFECTING LEARNING: None PHYSICAL LIMITATIONS AFFECTING LEARNING: None Electronically Signed By: Fernando Neumann RN In Department: GASTROENTEROLOGY [facility] Ambulatory Visit Summaryon 0 05-24-2025 Ambulatory Visit Summary Ambulatory Visit Summary DANIELA RAYMUNDO :1945 Visit Date:05/24/2025 Ambulatory Visit Instructions Your Diagnosis Former smoker BMI 24.0-24.9, adult HLD (hyperlipidemia), Hyperlipidemia, unspecified Essential hypertension Hypothyroid Type 2 diabetes mellitus with hyperlipidemia Breast cancer screening by mammogram Your Care Team Attending Physician - Beatriz Griggs Primary Care Physician - Sonja Quezada MD This Is Your Medications List Misc Prescription Misc Prescription Misc Prescription (Alcohol Prep Pad) alprazolam (Xanax 0.5 mg Tab) apixaban (Eliquis 5 mg oral tablet) clopidogrel (Plavix) esomeprazole (esomeprazole 40 mg Cap-EC) fluticasone nasal (fluticasone Nasal 0.05 mg/inh Reed) furosemide (furosemide 40 mg Tab) levocetirizine (levocetirizine 5 mg oral tablet) levothyroxine (levothyroxine 75 mcg (0.075 mg) Tab) magnesium citrate nitroglycerin sitagliptin (Januvia 100 mg Tab) sotalol Procedures Performed Appendectomy, CABG x 3 - Coronary artery bypass grafts x 3, Cataracts, Cholecystectomy, Colonoscopy, Cryoablation, EGD (esophagogastroduodenoscop ic) 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 Discharge Vitals Temperature (Temporal Artery) 36.2 ???C Heart Rate (Peripheral) 66 Respiratory Rate 20 Blood Pressure 108/62 Height 157.0 cm Height 62 in Weight 60.80 kg Weight 134.041 lb BMI 24.67 What to do next Scheduled Follow-Up Appointments Thursday 1:20 PM EST With: Beatriz Griggs Where: [address] [id number]- [id number] 1:00 PM EDT With: Where: [address] [address]- Medications What How Much When Instructions Unchanged alprazolam (Xanax 0.5 mg Tab) 1 Tablets By Mouth 3 times a day as needed for for anxiety Duration: 90 Days 1 BID and 2QHS. Unchanged apixaban (Eliquis 5 mg oral tablet) 1 Tablets By Mouth 2 times a day Oral, 0 Refill(s) Unchanged clopidogrel (Plavix) 75 Milligram By Mouth Every day Unchanged esomeprazole (esomeprazole 40 mg Cap-EC) 1 Capsules By Mouth 2 times a day Oral, 0 Refill(s) Unchanged fluticasone nasal (fluticasone Nasal 0.05 mg/ inh Reed) 2 Sprays Nasal Inhalation Every day Nasal, 0 Refill(s) Unchanged furosemide (furosemide 40 mg Tab) 1 Tablets By Mouth Every day Unknown, 0 Refill(s) Unchanged levocetirizine (levocetirizine 5 mg oral tablet) 1 Tablets By Mouth Once a day (in the evening) Unchanged levothyroxine (levothyroxine 75 mcg (0.075 mg) Tab) 1 Tablets By Mouth Every day Unchanged magnesium citrate 240 Milligram By Mouth Every day Unchanged Misc Prescription 0 Potassium Gluconate 595 mg bottle reads Potassium 99mg (from 595 Potassium Gluconate) -takes 2 per day sometimes 4 per day Unchanged Misc Prescription 0 Glucosamine Chondoitin Glucosamine 1500 mg Chondroitin 1200mg Sodium 125mg Potassium 194mg *patient states she takes 2 tabs per day Unchanged Misc Prescription (Alcohol Prep Pad) See instructions 1 box of alcohol prep pads Unchanged nitroglycerin 0.4 Milligram Sublingual Every 5 minutes as needed for Chest pain Duration: 3 Doses Unchanged sitagliptin (Januvia 100 mg Tab) 1 Tablets By Mouth Every day Oral, 0 Refill(s) Unchanged sotalol 80 Milligram By Mouth 2 times a day Allergies Alcohol Lipitor Zetia cetirizine Problems Ongoing - Any problem that you are currently receiving treatment for. Anxiety ASCVD (arteriosclerotic cardiovascular disease) Barretts esophagus Benign hypertension with chronic kidney disease, stage III BMI 26.0-26.9,adult Breast cancer screening by mammogram Dysphagia Essential hypertension Essential tremor Former smoker HLD (hyperlipidemia) Hx of coronary artery bypass surgery Hypothyroid Osteoporosis Overweight (BMI 25.0-29.9) Stage 3b chronic kidney disease (CKD) Type 2 diabetes mellitus with hyperlipidemia Type 2 diabetes mellitus with stage 3b chronic kidney disease Unspecified macular degeneration Historical - Any problem that you are no longer receiving treatment for. DM type 2 without retinopathy Patient Survey You may receive a survey via text or e-mail asking about your office visit. Please share your experience with us by completing your survey. We appreciate your feedback and thank you for choosing us for your care. Patient Portal You may access all of your results and other medical record information on our secure patient portal. If you are not signed up for this yet, please contact [employer] at [phone] to get signed up today. Language Information Language assistance services are available as needed. Normal [facility] Family Medicine Office/Clini c Noteon 05-24-2025 Family Medicine Office/Clinic Note Family Medicine Office/Clinic Note [facility] Staff Daniela is a 80 year old female presenting with Former Ross patient Do you have any of the following symptoms? Foot Exam: due today Eye Exam: last week Last A1C Hgb A1C %: 6.4 % High (01/12/24 13:51:00) Statin: Patient is here for follow up on hypertension. How often are you checking your blood pressure? no What are your average readings? _ Yearly BMP: _ goes to cardiac rehab 3x week refills needed: Kailash she said one of their friend takes this and wants to know if it would be ok to take... B12 and Vitamin D3+K2 History of Present Illness pt presents today for follow up. Review of Systems PHQ Score Initial Depression Screen Score: 0 SCORE Physical Exam Vitals & Measurements T: 36.2 ???C(Temporal Artery) HR: 66(Peripheral) RR: 20 BP: 108/62 SpO2: 97% HT: 62 in HT: 157.0 cm WT: 60.80 kg WT: 134.041 lb BMI: 24.67 General: alert, no acute distress ENMT: oral mucosa moist, no pharyngeal erythema or exudate Cardiovascular: regular rate and rhythm, normal peripheral perfusion Respiratory: Lungs CTA, respirations non labored Extremities: no deformity, no trauma Neurological: oriented x 4, LOC appropriate for age, CN II-XII intact, motor strength equal & normal bilaterally, speech normal Assessment/Plan 1. Type 2 diabetes mellitus with hyperlipidemia (E11.69: Type 2 diabetes mellitus with other specified complication) pt present today for diabetes follow up. Due to have HGAB1C checked. order provided. all questions answered. RTC 3 months Ordered: CBC w/ Auto Diff Comprehensive Metabolic Panel HgbA1c Lipid Panel Thyroid Stimulating Hormone 2. Hypothyroid (E03.9: Hypothyroidism, unspecified) TSH ordered Ordered: CBC w/ Auto Diff Comprehensive Metabolic Panel HgbA1c Lipid Panel MA Mamm Screen w/CAD if perf and 3D Kamar Thyroid Stimulating Hormone 3. Hyperlipidemia, unspecified (E78.5: Hyperlipidemia, unspecified) lipid panel ordered Ordered: CBC w/ Auto Diff Comprehensive Metabolic Panel HgbA1c Lipid Panel MA Mamm Screen w/CAD if perf and 3D Kamar Thyroid Stimulating Hormone 4. Essential hypertension (I10: Essential (primary) hypertension) BP at goal today. continue cardiac rehab 3 times a week Ordered: CBC w/ Auto Diff Comprehensive Metabolic Panel HgbA1c Lipid Panel MA Mamm Screen w/CAD if perf and 3D Kamar Thyroid Stimulating Hormone 5. Generalized anxiety disorder (F41.1: Generalized anxiety disorder) med agreement updated. RTC 3 months 6. Former smoker (Z87.891: Personal history of nicotine dependence) continue not smoking Ordered: CBC w/ Auto Diff Comprehensive Metabolic Panel HgbA1c Lipid Panel MA Mamm Screen w/CAD if perf and 3D Kamar Thyroid Stimulating Hormone 7. BMI 24.0-24.9, adult (Z68.24: Body mass index [BMI] 24.0-24.9, adult) BMI educatoin Ordered: CBC w/ Auto Diff Comprehensive Metabolic Panel HgbA1c Lipid Panel MA Mamm Screen w/CAD if perf and 3D Kamar Thyroid Stimulating Hormone 8. Breast cancer screening by mammogram (Z12.31: Encounter for screening mammogram for malignant neoplasm of breast) mammogram order faxed to [facility] Ordered: MA Mamm Screen w/CAD if perf and 3D Kamar Orders: alprazolam, 0.75 mg = 1.5 tab(s), Oral, TID, PRN for anxiety, X 90 day(s), # 135 tab(s), Refills(s) 1, Pharmacy: [facility], 157, cm, 05/24/25 14:03:00 EDT, Height/Length Dosing, 60.8, kg, 05/24/25 14:03:00 EDT, Weight Dosing Follow-up No qualifying data available Problem List/Past Medical History Ongoing Anxiety ASCVD (arteriosclerotic cardiovascular disease) Barretts esophagus Benign hypertension with chronic kidney disease, stage III BMI 26.0-26.9,adult Breast cancer screening by mammogram Dysphagia Essential hypertension Essential tremor Former smoker Generalized anxiety disorder HLD (hyperlipidemia) Hx of coronary artery bypass surgery Hypothyroid Osteoporosis Overweight (BMI 25.0-29.9) Stage 3b chronic kidney disease (CKD) Type 2 diabetes mellitus with hyperlipidemia Type 2 diabetes mellitus with stage 3b chronic kidney disease Unspecified macular degeneration Historical DM type 2 without retinopathy Procedure/Surgical History Appendectomy, CABG x 3 - Coronary artery bypass grafts x 3, Cataracts, Cholecystectomy, Colonoscopy, Cryoablation, EGD (esophagogastroduodenoscop ic) 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 Medications Alcohol Prep Pad, See Instructions, 2 refills alprazolam 0.5 mg Tab, 0.75 mg= 1.5 tab(s), Oral, TID, PRN, 1 refills Eliquis 5 mg oral tablet, 5 mg= 1 tab(s), Oral, BID, 4 refills esomeprazole 40 mg Cap-EC, 40 mg= 1 cap(s), Oral, BID fluticasone Nasal 0.05 mg/inh Reed, 100 mcg= 2 spray(s), Nasal, Daily, 3 refills furosemide 40 mg Tab, 40 mg= 1 tab(s), Oral, Daily, 3 refills Januvia 100 mg Tab, 100 mg= 1 tab(s), Oral, Daily, 3 refills levocetirizine 5 mg (more content not included)... Normal [facility] Comment on above: Result Comment: Elec tronically Signed By: Beatriz Griggs\.br\Date and Time Signed: 05/24/25 15:09 EDT NURSING PROGon 05-23-2025 NURSING PROG HNO ID: [id number] Author: VICKY NEVES RN Service: ? Author Type: Registered Nurse Type: Nursing Progress Note Filed: 05/23/2025 13:51 Note Text: Attempted to reach the patient at the contact number that they provided [phone] (home) . Unable to speak with patient so without identifying the patient the following information was left on their voice mail: Date of procedure, location and report time Prep instructions A message was left informing the patient/patient insurance claim representative they must have a responsible adult accompany them to their procedure; and remain in the endoscopy area until they are discharged. Failure to have a responsible adult accompany the patient to their procedure appointment prevents the use of sedation or anesthesia for their procedure; and can result in cancellation of the procedure NPO instructions were reviewed. Instructions to contact their primary care provider regarding their medications and which medications to stop in preparation for their procedure Instructions to completely read and follow the written instructions that they recieved regarding their procedure. Number to call with questions or concerns [phone] Number to call to cancel their procedure [phone] Vicky Neves RN [facility] 04-14-[address] [facility] Telephone (ANTON[facility]) -- DANIELA RAYMUNDO ([id number]) 1945 F Date Time Provider Department 04/14/25 NORBERT DAILEYCT During your visit today, we recorded the following information about you: Peyton Bryant 04/14/2025 2:58 PM Signed Daniela calling #[phone] Calling because she can for sure not go off of Plavix. Wants to know if any other treatment can be done without going off of blood thinners. I did go over the telephone encounter from 03/09/25 I spoke to Daniela.She had a heart attack a month ago and required a cardiac stent. The admission was also complicated bythe occurrence of atrial fibrillationshe is currently on eliquis,Plavix and aspirin.It sounds like she's had some element of deconditioning because of this hospitalization additionally.I feel that we should wait on any endoscopic intervention at this point given the fact that patients on anticoagulants. I have asked her to call me in April and we will arrange for an endoscopy then.We will utilize cryotherapy which has an excellent safety profile when compared to RFA. Norbert Dailey II, MD Still would like clarification on what can be done Thank you Mary Ocampo 05/02/2025 11:06 AM Signed Outside encounter from patient's learning support aide, Dr Sol scanned in [facility] concerning discontinuing Eliquis Mary Mace Allergies As of Date: 04/14/2025 Noted Allergy Reaction ALCOHOL 06/17/2019 4 - Hives ZETIA (EZETIMIBE) 06/17/2019 14 - Other: See Comments Comments: Leg cramps. Date Reviewed: 08/04/2024 Reviewed by: Michelle Pino, RN - Fully Assessed Reason for Visit: Patient Question [8328] Cmt: Endoscopy/Questions Prescriptions as of 05/02/2025 - esomeprazole (NEXIUM) 40 mg capsule TAKE 1 CAPSULE TWICE DAILY - metoprolol succinate ER (TOPROL XL) 50 mg 24 hr tablet Take 1 tablet by mouth once daily. 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 - aspirin, enteric coated (ASPIRIN, ENTERIC COATED) 81 mg EC tablet Take 81 mg by mouth three times a week. - ALPRAZolam (XANAX) 0.5 mg tablet - fluticasone (FLONASE) 50 mcg/actuation nasal spray - furosemide (LASIX) 40 mg tablet - ACCU-CHEK FASTCLIX LANCET DRUM lancets - levothyroxine (SYNTHROID) 75 mcg tablet - losartan (COZAAR) 25 mg tablet - pitavastatin (LIVALO) 2 mg tablet Take 1 tablet by mouth once daily. - SITagliptin (JANUVIA) 100 mg tablet Take 100 mg by mouth once daily. - POTASSIUM ORAL Take 300 mg by mouth once daily. 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] 09/05/2021 Hypothyroidism [E03.9] 09/05/2021 Benign essential hypertension [I10] 04/07/2022 Essential tremor [G25.0] 04/07/2022 Generalized anxiety disorder [F41.1] 04/07/2022 Insomnia [G47.00] 04/07/2022 Mitral valve insufficiency [I34.0] 04/07/2022 Mixed hyperlipidemia [E78.2] 04/07/2022 Stage 2 chronic kidney disease [N18.2] 04/07/2022 Transient ischemic attack [G45.9] 04/07/2022 Haji's esophagus with high grade dysplasia [*07/31/2022 Observation after surgery [Z48.89] 07/31/2022 Haji's esophagus determined by biopsy [K22.7*07/31/2022 Acute respiratory failure with hypoxia and hype*07/31/2022 08/05/2022 Pneumonia due to infectious organism [J18.9] 07/31/2022 08/05/2022 Esophageal tear [S11.21XA] 08/01/2022 Encounter Status:Closed by PEYTON BRYANT on 04/19/25 [facility] 03-20-20 [facility] Case Information Case Priority: None Programs: -- Referral Source: Final Expense Agent Referral Reason: Care coordination Case Type: Transition Care Management Risk Score: -- Case Status: Enrolled (February 21, 2025) Date Assigned: February 16, 2025 Assigned By: Haile Sequeira Date Enrolled: February 21, 2025 Assigned Primary Personnel: Haile Sequeira Assigned Secondary Personnel: -- Case Physician: Sonja Quezada MD Problems Ongoing Anxiety ASCVD (arteriosclerotic cardiovascular disease) Barretts esophagus Benign hypertension with chronic kidney disease, stage III BMI 26.0-26.9,adult Dysphagia Essential hypertension Essential tremor Former smoker HLD (hyperlipidemia) Hx of coronary artery bypass surgery Hypothyroid Osteoporosis Overweight (BMI 25.0-29.9) Stage 3b chronic kidney disease (CKD) Type 2 diabetes mellitus with hyperlipidemia Type 2 diabetes mellitus with stage 3b chronic kidney disease Unspecified macular degeneration Historical DM type 2 without retinopathy Procedure/Surgical History Appendectomy, CABG x 3 - Coronary artery bypass grafts x 3, Cataracts, Cholecystectomy, Colonoscopy, Cryoablation, EGD (esophagogastroduodenoscop ic) 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 Home Medications Alcohol Prep Pad, See Instructions, 2 refills aspirin, 81 mg, Oral, Daily Eliquis 5 mg oral tablet, 5 mg= 1 tab(s), Oral, BID, 4 refills esomeprazole 40 mg Cap-EC, 40 mg= 1 cap(s), Oral, BID fluticasone Nasal 0.05 mg/inh Reed, 100 mcg= 2 spray(s), Nasal, Daily, 3 refills furosemide 40 mg Tab, 40 mg= 1 tab(s), Oral, Daily, 3 refills Januvia 100 mg Tab, 100 mg= 1 tab(s), Oral, Daily, 3 refills levocetirizine 5 mg oral tablet, 5 mg= 1 tab(s), Oral, qPM, 1 refills levothyroxine 75 mcg (0.075 mg) Tab, 75 mcg= 1 tab(s), Oral, Daily, 4 refills magnesium citrate, 240 mg, Oral, Daily Misc Prescription, 0 Misc Prescription, 0 nitroglycerin, 0.4 mg, SubLingual, q5min, PRN pitavastatin 2 mg oral tablet, 2 mg= 1 tab(s), Oral, Daily Plavix, 75 mg, Oral, Daily sotalol, 80 mg, Oral, BID Allergies Alcohol Lipitor Zetia cetirizine Social History Alcohol - Denies Alcohol Use, 02/01/2024 Never., 09/06/2024 Substance Abuse - Denies Substance Abuse, 02/01/2024 Never., 09/06/2024 Tobacco Former smoker, quit more than 30 days ago Tobacco Use:. Never Smokeless Tobacco Use:. Cigarettes, Household tobacco concerns: No. Yes, 03/13/2025 Family History Primary malignant neoplasm of colon: Mother. Screenings and Assessments 02/21/25 10:40:00 Result Name Value Comment Phone Call Monitoring Consent Agreed to continue call Phone Verification Patient Information Full name, street address and date of verified CM Program Enrollment Provides verbal consent for enrollment Goals and Interventions Care Plan Progress Note TCM#3- Spoke with patient for final TCM status update. States she is 'pretty good.' Reports she recently started lovastatin, after having about a week with no statin. Patient reports that while she was not taking a statin rx she noticed better vision, her runny nose was not as heavy, her breathing was better, and her cough was absent. Patient notes that she has been taking lovastatin for 2 doses and believes her symptoms are returning. CN advised patient to contact cardiologists office and discuss, as she can not recall if she has an upcoming appointment. Patient praised the [facility] Medicine Office for their patience and kind, caring attitudes. Nothing further at this time. Communication Events Date: March 20, 2025 Method: Phone call Type: Outbound Duration (min): 25 Outcome: Case discussion Contact Type: Patient Contact Name: DANIELA RAYMUNDO Notes: TCM#3-See tcm note. Created By: Haile Sequeira Date: March 06, 2025 Method: Phone call Type: Outbound Duration (min): 10 Outcome: Case discussion Contact Type: case management coordinator Contact Name: Екатерина Alfonso Notes: TCM #2 see FT summary notes. Created By: Екатерина Alfonso Date: February 21, 2025 Method: Phone call Type: Outbound Duration (min): 35 Outcome: Case discussion Contact Type: Patient Contact Name: DANIELA RAYMUNDO Notes: TCM#1- See TCM note. Created By: Haile Sequeira [facility] Ambulatory Visit Summaryon 0 03-13-2025 Ambulatory Visit Summary Ambulatory Visit Summary DANIELA RAYMUNDO :1945 Visit Date:03/13/2025 Ambulatory Visit Instructions Your Diagnosis Barretts esophagus Benign hypertension with chronic kidney disease, stage III Dysphagia Essential tremor Essential hypertension ASCVD (arteriosclerotic cardiovascular disease) Hypothyroid Chronic kidney disease, stage 3 unspecified Your Care Team Attending Physician - Sonja Quezada MD Primary Care Physician - Sonja Quezada MD This Is Your Medications List Misc Prescription Misc Prescription Misc Prescription (Alcohol Prep Pad) alprazolam (Xanax 0.5 mg Tab) apixaban (Eliquis 5 mg oral tablet) aspirin clopidogrel (Plavix) esomeprazole (esomeprazole 40 mg Cap-EC) fluticasone nasal (fluticasone Nasal 0.05 mg/inh Reed) furosemide (furosemide 40 mg Tab) levocetirizine (levocetirizine 5 mg oral tablet) levothyroxine (levothyroxine 75 mcg (0.075 mg) Tab) magnesium citrate nitroglycerin pitavastatin (pitavastatin 2 mg oral tablet) sitagliptin (Januvia 100 mg Tab) sotalol Procedures Performed Appendectomy, CABG x 3 - Coronary artery bypass grafts x 3, Cataracts, Cholecystectomy, Colonoscopy, Cryoablation, EGD (esophagogastroduodenoscop ic) 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 Discharge Vitals Heart Rate (Peripheral) 82 Respiratory Rate 20 Blood Pressure 142/62 Height 157.0 cm Height 62 in Weight 60.3 kg Weight 132.939 lb BMI 24.46 What to do next Scheduled Follow-Up Appointments Thursday 2:00 PM EDT With: Sonja Quezada MD Where: [address] [address]- Thursday2025 1:00 PM EDT With: Where: [address] [address]- Medications What How Much When Instructions Unchanged alprazolam (Xanax 0.5 mg Tab) 1 Tablets By Mouth 3 times a day as needed for for anxiety Duration: 90 Days 1 BID and 2QHS. Unchanged apixaban (Eliquis 5 mg oral tablet) 1 Tablets By Mouth 2 times a day Oral, 0 Refill(s) Unchanged aspirin 81 Milligram By Mouth Every day [facility] [place] - changed to daily Unchanged clopidogrel (Plavix) 75 Milligram By Mouth Every day Unchanged esomeprazole (esomeprazole 40 mg Cap-EC) 1 Capsules By Mouth 2 times a day Oral, 0 Refill(s) Unchanged fluticasone nasal (fluticasone Nasal 0.05 mg/ inh Reed) 2 Sprays Nasal Inhalation Every day Nasal, 0 Refill(s) Unchanged furosemide (furosemide 40 mg Tab) 1 Tablets By Mouth Every day Unknown, 0 Refill(s) Unchanged levocetirizine (levocetirizine 5 mg oral tablet) 1 Tablets By Mouth Once a day (in the evening) Unchanged levothyroxine (levothyroxine 75 mcg (0.075 mg) Tab) 1 Tablets By Mouth Every day Unchanged magnesium citrate 240 Milligram By Mouth Every day Unchanged Misc Prescription 0 Potassium Gluconate 595 mg bottle reads Potassium 99mg (from 595 Potassium Gluconate) -takes 2 per day sometimes 4 per day Unchanged Mis Prescription 0 Glucosamine Chondoitin Glucosamine 1500 mg Chondroitin 1200mg Sodium 125mg Potassium 194mg *patient states she takes 2 tabs per day Unchanged Misc Prescription (Alcohol Prep Pad) See instructions 1 box of alcohol prep pads Unchanged nitroglycerin 0.4 Milligram Sublingual Every 5 minutes as needed for Chest pain Duration: 3 Doses Unchanged pitavastatin (pitavastatin 2 mg oral tablet) 1 Tablets By Mouth Every day Unchanged sitagliptin (Januvia 100 mg Tab) 1 Tablets By Mouth Every day Oral, 0 Refill(s) Unchanged sotalol 80 Milligram By Mouth 2 times a day Allergies Alcohol Lipitor Zetia cetirizine Problems Ongoing - Any problem that you are currently receiving treatment for. Anxiety ASCVD (arteriosclerotic cardiovascular disease) Barretts esophagus Benign hypertension with chronic kidney disease, stage III BMI 26.0-26.9,adult Dysphagia Essential hypertension Essential tremor Former smoker HLD (hyperlipidemia) Hx of coronary artery bypass surgery Hypothyroid Osteoporosis Overweight (BMI 25.0-29.9) Stage 3b chronic kidney disease (CKD) Type 2 diabetes mellitus with hyperlipidemia Type 2 diabetes mellitus with stage 3b chronic kidney disease Unspecified macular degeneration Historical - Any problem that you are no longer receiving treatment for. DM type 2 without retinopathy Patient Survey You may receive a survey via text or e-mail asking about your office visit. Please share your experience with us by completing your survey. We appreciate your feedback and thank you for choosing us for your care. [facility] Family Medicine Office/Clini c Noteon 03-13-2025 Family Medicine Office/Clinic Note Family Medicine Office/Clinic Note Chief Complaint The patient is concerned about her ASCVD and essential hypertension management. HPI Staff Daniela is a 80 year old female presenting with 2 week f/u per message from March 06.... Pt. wondering if PCP consider if pt. is really needing to take the pitavastatin, stating insurance is denying and she is taking so many pills now, 13 pills. States all of the other cholesterol meds and statins she has tried in the past cause SE for her, causing more concerns then without. States she has 5 doses left of medication. History of Present Illness - The patient is an 80-year-old female presenting with ASCVD and essential hypertension management. - ASCVD: The patient discussed her communication with the learning support aide regarding medication management, specifically the discontinuation of sotalol without weaning, as advised by the learning support aide. - She reported no significant issues with heart rate since stopping sotalol, with occasional brief episodes of elevated heart rate. - Essential Hypertension: The patient mentioned her blood pressure readings, noting a recent measurement of 142/62 mmHg, which was slightly elevated but not concerning to her physician. - She noted improvements in symptoms such as clearer vision after discontinuing losartan. Review of Systems PHQ Score Initial Depression Screen Score: 0 SCORE Physical Exam Vitals & Measurements HR: 82(Peripheral) RR: 20 BP: 142/62 SpO2: 97% HT: 157.0 cm HT: 62 in WT: 60.3 kg WT: 132.939 lb BMI: 24.46 General: alert, no acute distress ENMT: oral mucosa moist Cardiovascular: Regular rate and rhythm, normal peripheral perfusion, blood pressure 142/62 Respiratory: Lungs clear to auscultation, respirations non labored Extremities: no deformity, no trauma Neurological: oriented x 4, level of consciousness appropriate for age, CN II-XII intact, motor strength equal & normal bilaterally, speech normal Abdomen: Soft, Non-tender, Non-distended, + Bowel sounds Assessment/Plan 1. Barretts esophagus (K22.70: Haji's esophagus without dysplasia) - NO issues at this time. 2. Benign hypertension with chronic kidney disease, stage III (I12.9: Hypertensive chronic kidney disease with stage 1 through stage 4 chronic kidney disease, or unspecified chronic kidney disease) - Slightly elevated BPs. - Monitor renal function. 3. Dysphagia (R13.10: Dysphagia, unspecified) - NO issues at this time. 4. Essential tremor (G25.0: Essential tremor) - Stable 5. Essential hypertension (I10: Essential (primary) hypertension) - Monitor blood pressure regularly, with recent readings slightly elevated but not concerning. - Observe for any further symptom improvements after discontinuing losartan. 6. ASCVD (arteriosclerotic cardiovascular disease) (I25.10: Atherosclerotic heart disease of chilkat coronary artery without angina pectoris) - Continue monitoring heart rate and symptoms after discontinuation of sotalol as advised by the learning support aide. - Pt is now continuing plavix. - Off the sotalol - BP is better. 7. Hypothyroid (E03.9: Hypothyroidism, unspecified) - Will monitor. Chronic kidney disease, stage 3 unspecified (N18.30: Chronic kidney disease, stage 3 unspecified) - 80-year-old female with a history of ASCVD presenting with medication management concerns. - The patient has been advised by her learning support aide to discontinue sotalol without tapering, and she has not experienced significant issues with heart rate since cessation. - Essential hypertension is being monitored, with recent blood pressure readings slightly elevated but not alarming. - The patient reported symptom improvement, such as clearer vision, after stopping losartan. During the visit, we discussed the patient's ASCVD management, including the learning support aide's recommendation to discontinue sotalol without tapering. The patient has not experienced significant heart rate issues since stopping the medication. We also reviewed her essential hypertension, noting recent blood pressure readings that were slightly elevated but not concerning. The patient reported improvements in symptoms such as clearer vision after discontinuing losartan. We will continue to monitor her blood pressure and symptoms closely. - Continue monitoring your heart rate and report any significant changes or symptoms. - Check your blood pressure regularly and keep a log of the readings. - Observe for any further improvements in symptoms after stopping losartan and report any concerns. Follow-up No qualifying data available Problem List/Past Medical History Ongoing Anxiety ASCVD (arteriosclerotic cardiovascular disease) Barretts esophagus Benign hypertension with chronic kidney disease, stage III BMI 26.0-26.9,adult Dysphagia Essential hypertension Essential tremor Former smoker HLD (hyperlipidemia) Hx of coronary artery bypass surgery Hypothyroid Osteoporosis Overweight (BMI 25.0-29.9) (more content not included)... Normal [facility] Comment on above: Result Comment: Elec tronically Signed By: Damien GUTIERREZ, Sonja Good\.br\Date and Time Signed: 03/13/25 15:43 EDT [facility] [place] 03-06-20 [facility] Case Information Case Priority: None Programs: -- Referral Source: Final Expense Agent Referral Reason: Care coordination Case Type: Transition Care Management Risk Score: -- Case Status: Enrolled (February 21, 2025) Date Assigned: February 16, 2025 Assigned By: Haile Sequeira Date Enrolled: February 21, 2025 Assigned Primary Personnel: Haile Sequeira Assigned Secondary Personnel: -- Case Physician: Sonja Quezada MD Problems Ongoing Anxiety ASCVD (arteriosclerotic cardiovascular disease) Barretts esophagus Benign hypertension with chronic kidney disease, stage III BMI 26.0-26.9,adult Dysphagia Essential hypertension Essential tremor Former smoker HLD (hyperlipidemia) Hx of coronary artery bypass surgery Hypothyroid Osteoporosis Overweight (BMI 25.0-29.9) Stage 3b chronic kidney disease (CKD) Type 2 diabetes mellitus with hyperlipidemia Type 2 diabetes mellitus with stage 3b chronic kidney disease Unspecified macular degeneration Historical DM type 2 without retinopathy Procedure/Surgical History Appendectomy, CABG x 3 - Coronary artery bypass grafts x 3, Cataracts, Cholecystectomy, Colonoscopy, Cryoablation, EGD (esophagogastroduodenoscop ic) 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 Home Medications Alcohol Prep Pad, See Instructions, 2 refills aspirin, 81 mg, Oral, Daily Eliquis 5 mg oral tablet, 5 mg= 1 tab(s), Oral, BID, 4 refills esomeprazole 40 mg Cap-EC, 40 mg= 1 cap(s), Oral, BID fluticasone Nasal 0.05 mg/inh Reed, 100 mcg= 2 spray(s), Nasal, Daily, 3 refills furosemide 40 mg Tab, 40 mg= 1 tab(s), Oral, Daily, 3 refills Januvia 100 mg Tab, 100 mg= 1 tab(s), Oral, Daily, 3 refills levocetirizine 5 mg oral tablet, 5 mg= 1 tab(s), Oral, qPM, 1 refills levothyroxine 75 mcg (0.075 mg) Tab, 75 mcg= 1 tab(s), Oral, Daily, 4 refills magnesium citrate, 240 mg, Oral, Daily Misc Prescription, 0 Misc Prescription, 0 nitroglycerin, 0.4 mg, SubLingual, q5min, PRN pitavastatin 2 mg oral tablet, 2 mg= 1 tab(s), Oral, Daily Plavix, 75 mg, Oral, Daily sotalol, 80 mg, Oral, BID Xanax 0.5 mg Tab, 0.5 mg= 1 tab(s), Oral, TID, PRN Allergies Alcohol Lipitor Zetia cetirizine Social History Alcohol - Denies Alcohol Use, 02/01/2024 Never., 09/06/2024 Substance Abuse - Denies Substance Abuse, 02/01/2024 Never., 09/06/2024 Tobacco Former smoker, quit more than 30 days ago Tobacco Use:. Never Smokeless Tobacco Use:. Cigarettes, Household tobacco concerns: No. Yes, 02/27/2025 Family History Primary malignant neoplasm of colon: Mother. Screenings and Assessments 02/21/25 10:40:00 Result Name Value Comment Phone Call Monitoring Consent Agreed to continue call Phone Verification Patient Information Full name, street address and date of verified CM Program Enrollment Provides verbal consent for enrollment Goals and Interventions Care Plan Progress Note TCM 2, Call placed to pt. she was states she is doing well, she was asking if her medication Pitavastatin had been changed, but according to last ov notes. pt. was to follow up with cardiology, pt. has not followed up yet with cardiology and has upcoming appt. Pts. phone disconnected and I attempted to call her back 4 times with no answer. Communication Events Date: March 06, 2025 Method: Phone call Type: Outbound Duration (min): 10 Outcome: Case discussion Contact Type: case management coordinator Contact Name: Екатерина Alfonso Notes: TCM #2 see FT summary notes. Created By: Екатерина Alfonso Date: February 21, 2025 Method: Phone call Type: Outbound Duration (min): 35 Outcome: Case discussion Contact Type: Patient Contact Name: DANIELA RAYMUNDO Notes: TCM#1- See TCM note. Created By: Haile Sequeira [facility] Ambulatory Visit Summaryon 0 02-27-2025 Ambulatory Visit Summary Ambulatory Visit Summary DANIELA RAYMUNDO :1945 Visit Date:02/27/2025 Ambulatory Visit Instructions Your Diagnosis Hospital discharge follow-up ASCVD (arteriosclerotic cardiovascular disease) Anxiety Essential hypertension Essential tremor Hx of coronary artery bypass surgery Type 2 diabetes mellitus with hyperlipidemia Other visual disturbances Your Care Team Attending Physician - Sonja Quezada MD Primary Care Physician - Sonja Quezada MD This Is Your Medications List Misc Prescription Misc Prescription Misc Prescription (Alcohol Prep Pad) alprazolam (Xanax 0.5 mg Tab) apixaban (Eliquis 5 mg oral tablet) aspirin clopidogrel (Plavix) esomeprazole (esomeprazole 40 mg Cap-EC) fluticasone nasal (fluticasone Nasal 0.05 mg/inh Reed) furosemide (furosemide 40 mg Tab) levocetirizine (levocetirizine 5 mg oral tablet) levothyroxine (levothyroxine 75 mcg (0.075 mg) Tab) magnesium citrate nitroglycerin pitavastatin (pitavastatin 2 mg oral tablet) sitagliptin (Januvia 100 mg Tab) sotalol Procedures Performed Appendectomy, CABG x 3 - Coronary artery bypass grafts x 3, Cataracts, Cholecystectomy, Colonoscopy, Cryoablation, EGD (esophagogastroduodenoscop ic) 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 Discharge Vitals Temperature (Oral) 36.3 ???C Heart Rate (Peripheral) 52 Respiratory Rate 20 Blood Pressure 114/74 Height 157.0 cm Height 62 in Weight 61.7 kg Weight 136.025 lb BMI 25.03 What to do next Scheduled Follow-Up Appointments Thursday 3:20 PM EDT With: Sonja Quezada MD Where: [address] [address]- Thursday2025 1:00 PM EDT With: Where: [address] [place] [address]- Medications What How Much When Instructions Unchanged alprazolam (Xanax 0.5 mg Tab) 1 Tablets By Mouth 3 times a day as needed for for anxiety Duration: 90 Days 1 BID and 2QHS. Unchanged apixaban (Eliquis 5 mg oral tablet) 1 Tablets By Mouth 2 times a day Oral, 0 Refill(s) Unchanged aspirin 81 Milligram By Mouth Every day [facility] [place] - changed to daily Unchanged clopidogrel (Plavix) 75 Milligram By Mouth Every day Unchanged esomeprazole (esomeprazole 40 mg Cap-EC) 1 Capsules By Mouth 2 times a day Oral, 0 Refill(s) Unchanged fluticasone nasal (fluticasone Nasal 0.05 mg/ inh Reed) 2 Sprays Nasal Inhalation Every day Nasal, 0 Refill(s) Unchanged furosemide (furosemide 40 mg Tab) 1 Tablets By Mouth Every day Unknown, 0 Refill(s) Unchanged levocetirizine (levocetirizine 5 mg oral tablet) 1 Tablets By Mouth Once a day (in the evening) Unchanged levothyroxine (levothyroxine 75 mcg (0.075 mg) Tab) 1 Tablets By Mouth Every day Unchanged magnesium citrate 240 Milligram By Mouth Every day Unchanged Misc Prescription 0 Potassium Gluconate 595 mg bottle reads Potassium 99mg (from 595 Potassium Gluconate) -takes 2 per day sometimes 4 per day Unchanged Misc Prescription 0 Glucosamine Chondoitin Glucosamine 1500 mg Chondroitin 1200mg Sodium 125mg Potassium 194mg *patient states she takes 2 tabs per day Unchanged Misc Prescription (Alcohol Prep Pad) See instructions 1 box of alcohol prep pads Unchanged nitroglycerin 0.4 Milligram Sublingual Every 5 minutes as needed for Chest pain Duration: 3 Doses Unchanged pitavastatin (pitavastatin 2 mg oral tablet) 1 Tablets By Mouth Every day Unchanged sitagliptin (Januvia 100 mg Tab) 1 Tablets By Mouth Every day Oral, 0 Refill(s) Unchanged sotalol 80 Milligram By Mouth 2 times a day Allergies Alcohol Lipitor Zetia cetirizine Problems Ongoing - Any problem that you are currently receiving treatment for. Anxiety ASCVD (arteriosclerotic cardiovascular disease) Barretts esophagus Benign hypertension with chronic kidney disease, stage III BMI 26.0-26.9,adult Dysphagia Essential hypertension Essential tremor Former smoker HLD (hyperlipidemia) Hx of coronary artery bypass surgery Hypothyroid Osteoporosis Overweight (BMI 25.0-29.9) Stage 3b chronic kidney disease (CKD) Type 2 diabetes mellitus with hyperlipidemia Type 2 diabetes mellitus with stage 3b chronic kidney disease Unspecified macular degeneration Historical - Any problem that you are no longer receiving treatment for. DM type 2 without retinopathy Patient Survey You may receive a survey via text or e-mail asking about your office visit. Please share your experience with us by completing your survey. We appreciate your feedback and thank you for choosing us for your care. Normal [facility] Family Medicine Office/Clini c Noteon 02-27-2025 Family Medicine Office/Clinic Note Family Medicine Office/Clinic Note Chief Complaint The patient reports experiencing blurry vision and low energy levels following recent cardiac interventions. [facility] Staff Daniela is a 80 year old female presenting for 3 month follow up Patient is here for follow up on Diabetes. How often are you checking your blood sugars? daily What are your average readings? 115 Paresthesias, Ulcerations or sores? Lisinopril, aspirin, statin therapy? Yes Foot Exam: Eye Exam: Last A1c: Hgb A1C %: 6.4 % High (01/12/24 13:51:00) Follow up for Mental Status: Pt taking Xanax Medication adherence- Yes, takes medication as prescribed Medication refill needed: _ Suicidal thoughts-Not at this time Most recent SB: 1 Most recent PHQ: 3 Medication Agreement: 09/06/24 Drug Screen: 09/06/24 Questions/Concerns: [facility] [place] for heart attack History of Present Illness - The patient is an 80 year old female presenting with issues related to Atherosclerotic Heart Disease of [place] Coronary Artery and follow-up after hospital discharge. - Presented with chest pain radiating to arms and back, treated in hospital and found to have pneumonia and a 99% blockage in left main coronary artery. - Underwent successful stenting following coronary reversion. - Current complications include high rates of atrial fibrillation, addressed with cardioversion. - Reports blurry vision and fatigue post-discharge; attributed to medication changes, including sotalol. - Patient expresses discomfort with the necessity and side effects of current medications, feeling the impact on her quality of life, specifically vision impairment. Review of Systems PHQ Score Initial Depression Screen Score: 0 SCORE Physical Exam Vitals & Measurements T: 36.3 ???C(Oral) HR: 52(Peripheral) RR: 20 BP: 114/74 SpO2: 100% HT: 157.0 cm HT: 62 in WT: 61.7 kg WT: 136.025 lb BMI: 25.03 General: alert, no acute distress ENMT: oral mucosa moist Cardiovascular: Irregular rate and rhythm, normal peripheral perfusion Respiratory: Lungs clear to auscultation, respirations non labored Extremities: no deformity, no trauma Neurological: oriented x 4, level of consciousness appropriate for age, CN II-XII intact, motor strength equal & normal bilaterally, speech normal Abdomen: Soft, Non-tender, Non-distended, + Bowel sounds Assessment/Plan 1. Hospital discharge follow-up (Z09: Encounter for follow-up examination after completed treatment for conditions other than malignant neoplasm) - Reviewed documentation. Discussed with TCM. Ordered: Body Mass Index (BMI) documented 3008F Complex E&M Add on G2211 Current tobacco non-user 1036F Depression Screening Negative 3352F Falls plan of care documented 0518F Influenza immunization status assessed 1030F Medication list documented in medical record 1159F Most recent diastolic blood pressure <80 mm Hg 3078F Review of all meds by a prescribing practitioner or clinical pharmacist documented in EHR 1160F Systolic BP <130 mm Hg (Most Recent) 3074F [facility] 14 day disch [id number] 2. ASCVD (arteriosclerotic cardiovascular disease) (I25.10: Atherosclerotic heart disease of [place] coronary artery without angina pectoris) - Maintain medication compliance and schedule cardiology follow-up. - Begin cardiac rehabilitation. Ordered: Body Mass Index (BMI) documented 3008F Complex E&M Add on G2211 Current tobacco non-user 1036F Depression Screening Negative 3352F Falls plan of care documented 0518F Influenza immunization status assessed 1030F Medication list documented in medical record 1159F Most recent diastolic blood pressure <80 mm Hg 3078F Review of all meds by a prescribing practitioner or clinical pharmacist documented in EHR 1160F Systolic BP <130 mm Hg (Most Recent) 3074F [facility] 14 day disch [id number] 3. Anxiety (F41.9: Anxiety disorder, unspecified) - Elevated at this time secondary to medical issues. -Continuing using benzos as needed. Ordered: Body Mass Index (BMI) documented 3008F Complex E&M Add on G2211 Current tobacco non-user 1036F Depression Screening Negative 3352F Falls plan of care documented 0518F Influenza immunization status assessed 1030F Medication list documented in medical record 1159F Most recent diastolic blood pressure <80 mm Hg 3078F Review of all meds by a prescribing practitioner or clinical pharmacist documented in EHR 1160F Systolic BP <130 mm Hg (Most Recent) 3074F TCM [facility] 14 day disch 42250 4. Essential hypertension (I10: Essential (primary) hypertension) - Continue antihypertensive management with potential adjustments. Ordered: Body Mass Index (BMI) documented 3008F Complex E&M Add on G2211 Current tobacco non-user 1036F Depression Screening Negative 3352F Falls plan of care documented 0518F Influenza immunization status assessed 1030F Medication list documented in medical record 1159F Most recent diastolic bl (more content not included)... Normal [facility] Comment on above: Result Comment: Elec tronically Signed By: Damien GUTIERREZ, Sonja Good\.br\Date and Time Signed: 02/27/25 14:55 EDT [facility] [place] 02-22-20 [facility] Case Information Case Priority: None Programs: -- Referral Source: Final Expense Agent Referral Reason: Care coordination Case Type: Transition Care Management Risk Score: -- Case Status: Enrolled (February 21, 2025) Date Assigned: February 16, 2025 Assigned By: Haile Sequeira Date Enrolled: February 21, 2025 Assigned Primary Personnel: Haile Sequeira Assigned Secondary Personnel: -- Case Physician: Sonja Quezada MD Problems Ongoing Acute URI Anxiety ASCVD (arteriosclerotic cardiovascular disease) Barretts esophagus Benign hypertension with chronic kidney disease, stage III BMI 26.0-26.9,adult Dermatitis Dysphagia Essential hypertension Essential tremor Former smoker HLD (hyperlipidemia) Hx of coronary artery bypass surgery Hypothyroid Long-term current use of opiate analgesic drug Osteoporosis Overweight (BMI 25.0-29.9) Stage 3b chronic kidney disease (CKD) Type 2 diabetes mellitus with hyperlipidemia Type 2 diabetes mellitus with stage 3b chronic kidney disease Unspecified macular degeneration Historical DM type 2 without retinopathy Procedure/Surgical History Appendectomy, CABG x 3 - Coronary artery bypass grafts x 3, Cataracts, Cholecystectomy, Colonoscopy, Cryoablation, EGD (esophagogastroduodenoscop ic) 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 Home Medications Alcohol Prep Pad, See Instructions, 2 refills aspirin, 81 mg, Oral, Daily Eliquis 5 mg oral tablet, 5 mg= 1 tab(s), Oral, BID, 3 refills esomeprazole 40 mg Cap-EC, 40 mg= 1 cap(s), Oral, BID fluticasone Nasal 0.05 mg/inh Reed, 100 mcg= 2 spray(s), Nasal, Daily, 3 refills furosemide 40 mg Tab, 40 mg= 1 tab(s), Oral, Daily, 3 refills Januvia 100 mg Tab, 100 mg= 1 tab(s), Oral, Daily, 3 refills levocetirizine 5 mg oral tablet, 5 mg= 1 tab(s), Oral, qPM, 1 refills levothyroxine 75 mcg (0.075 mg) Tab, 75 mcg= 1 tab(s), Oral, Daily, 4 refills magnesium citrate, 240 mg, Oral, Daily, Self Directed Misc Prescription, 0, Self Directed Misc Prescription, 0, Self Directed nitroglycerin, 0.4 mg, SubLingual, q5min, PRN pitavastatin 2 mg oral tablet, 2 mg= 1 tab(s), Oral, Daily Plavix, 75 mg, Oral, Daily sotalol, 80 mg, Oral, BID Xanax 0.5 mg Tab, 0.5 mg= 1 tab(s), Oral, TID, PRN, Still taking, not as prescribed: Patient states she is taking 4 times per day Allergies Alcohol Lipitor Zetia cetirizine Social History Alcohol - Denies Alcohol Use, 02/01/2024 Never., 09/06/2024 Substance Abuse - Denies Substance Abuse, 02/01/2024 Never., 09/06/2024 Tobacco Former smoker, quit more than 30 days ago Tobacco Use:. Never Smokeless Tobacco Use:. Cigarettes, Household tobacco concerns: No. Yes, 02/02/2025 Family History Primary malignant neoplasm of colon: Mother. Screenings and Assessments 02/21/25 10:40:00 Result Name Value Comment Phone Call Monitoring Consent Agreed to continue call Phone Verification Patient Information Full name, street address and date of verified CM Program Enrollment Provides verbal consent for enrollment Goals and Interventions Care Plan Progress Note Admit Date: 02/11/25 [facility] [place] Date of Discharge: 02/17/25 Follow-up appointment scheduled? yes, 02/27 at 1340 with PCP Did you understand your discharge instructions? yes Are you able to follow them? yes Did you receive new medications? yes, Plavix 75 mg QD, ASA 81 mg increased to QD, nitro 0.4 mg SL q 5 minutes up to 3 doses PRN CP, sotalol 80 mg BID, stop losartan Have you filled the Rx's? yes Are you taking them as prescribed? yes Are you having difficulty eating or swallowing your pills? no Are you having any stomach upset, diarrhea or constipation? no How are you sleeping? good Are you having any pain? no Do you have everything you need at home to care for yourself? yes Do you have Home Health? no Called patient for initial Transitional Care Management Program call. Readmission risk is not available. Reviewed d/c instructions and dx of: NSTEMI, afib with RVR, CAD, tremor, angina at rest, h/o CABG x 3, hypothyroid, anxiety, GERD. Reviewed purpose and side effects of new medications with patient. Medications reconciliation completed with patient list, EHR, and d/c list. Patient is requesting lovastatin rx to [facility] to replace Livalo, states she takes her alprazolam 4 times per day (see note to PCP). Patient had PCI on 02/13. Patient had successful DCC on 02/17. Patient denies any pain at groin access site, some bruising noted. Denies cazares or irritation to chest from DCC. Patient reports she is doing okay. Notes she could 'breath better.' Notes that she has had some SOB for quite sometime prior to recent admission, no change noted. Patient to monitor for signs and symptoms of bleeding. Patient is eating and drinking well. Reports fit bit shows HR in the 40's and 50's while she is asleep. Reports HR fluctuates throug (more content not included)... Normal [facility] Basic Metabolic Panelon 05-2 Anion gap [Moles/Vol] 9.3 mmol/L Normal 6.0-15.0 [facility] Comment on above: Performed By: #### B MP ####[facility] [address] Calcium [Mass/Vol] 9.3 mg/dL Normal 8.6-10.3 [facility] Comment on above: Performed By: #### B MP ####[address] Chloride [Moles/Vol] 98 mmol/L Normal 98-107 [facility] Comment on above: Performed By: #### B MP ####[address] CO2 [Moles/Vol] 34.6 mmol/L High 21.0-31.0 [facility] Comment on above: Performed By: #### B MP ####[address] Creatinine [Mass/Vol] 1.20 mg/dL Normal 0.60-1.20 [facility] Comment on above: Performed By: #### B MP ####[address] Creatinine Clr Calc Pharmacy 33.09 Normal [facility] Comment on above: Result Comment: PERF ORMED BY: [facility] [address] [place] [address] PATHOLOGIST IT ENGINEER ANA CLARK M.D. Performed By: #### B MP ####[address] Estimated GFR 45.195 mL/Min Normal [facility] Comment on above: Performed By: #### B MP ####[address] Glucose [Mass/Vol] 155 mg/dL High 70-100 [facility] Comment on above: Result Comment: [place] Glucose Reference Range is dependent on time and content of last meal. Glucose of more than 200 mg/dL in a nonstressed, ambulatory subject supports the diagnosis of Diabetes Mellitus. ADA recommended reference range Performed By: #### B MP ####[address] Potassium [Moles/Vol] 3.9 mmol/L Normal 3.5-5.1 [facility] Comment on above: Result Comment: Hemo lysis is present at a level that could interfere with the result. Contact lab if redraw is required Performed By: #### B MP ####[facility] Sodium [Moles/Vol] 138 mmol/L Normal 136-145 [facility] Comment on above: Performed By: #### B MP ####[facility] [address] Urea nitrogen [Mass/Vol] 26 mg/dL High 7-25 [facility] Comment on above: Performed By: #### B MP ####[place] [address] Basophils Auto (Bld) [#/Vol] Ordered By: Acosta Bo on 02-17-2025 Basophils (Bld) [#/Vol] Automated basophil count 0.0-0.2 [facility] Basophils/100 WBC Auto (Bld) Ordered By: Acosta Bo on 02-17-2025 Basophils/100 WBC (Bld) Automated basophil % . [facility] Calcium [Mass/volume] in Ser um or PlasmaOrdered By: Acosta Bo on 02-17-2025 Calcium [Mass/Vol] Calcium [Mass/volume ] in Serum or Plasma 8.6-10.3 [facility] Carbon dioxide, total [Moles /volume] in Serum or PlasmaOrdered By: Acosta Bo on 02-17-2025 CO2 [Moles/Vol] Carbon dioxide, tota l [Moles/volume] in Serum or Plasma High 21.0-31.0 [facility] Chloride [Moles/volume] in S stacia or PlasmaOrdered By: Acosta Bo on 02-17-2025 Chloride [Moles/Vol] Chloride [Moles/vol ume] in Serum or Plasma 98-107 [facility] Complete Blood Count Auto Di ffon 02-17-2025 Basophils (Bld) [#/Vol] 0.1 10*3/uL Normal 0.0-0.2 [facility] Comment on above: Result Comment: PERF ORMED BY: [facility] [place] [address] PATHOLOGIST IT ENGINEER ANA CLARK M.D. Performed By: #### C BC ####[address] Basophils/100 WBC (Bld) 1.2 % Normal . [facility] Comment on above: Performed By: #### C BC ####[address] Eosinophils (Bld) [#/Vol] 0.4 10*3/uL Normal 0.0-0.45 [facility] Comment on above: Performed By: #### C BC ####[address] Eosinophils/100 WBC (Bld) 3.3 % Normal . [facility] Comment on above: Performed By: #### C BC ####[address] Erythrocyte distribution width (RBC) [Ratio] 14.8 % Normal 11.9-15.3 [facility] Comment on above: Performed By: #### C BC ####[address] Hematocrit (Bld) [Volume fraction] 29.8 % Low 34.0-46.4 [facility] Comment on above: Performed By: #### C BC ####[address] Hemoglobin (Bld) [Mass/Vol] 9.8 g/dL Low 11.8-15.4 [facility] Comment on above: Performed By: #### C BC ####[address] Lymphocytes (Bld) [#/Vol] 2.9 10*3/uL Normal 1.00-4.8 [facility] Comment on above: Performed By: #### C BC ####[address] Lymphocytes/100 WBC (Bld) 24.2 % Normal . [facility] Comment on above: Performed By: #### C BC ####[address] MCH (RBC) [Entitic mass] 27.0 pg Normal 24.7-34.3 [facility] Comment on above: Performed By: #### C BC ####[address] MCV (RBC) [Entitic vol] 82.1 fL Normal 80-100 [facility] Comment on above: Performed By: #### C BC ####[address] Mean Corpuscular HGB Conc 32.9 g/dL Normal 32.0-35.0 [facility] Comment on above: Performed By: #### C BC ####[address] Monocytes (Bld) [#/Vol] 1.3 10*3/uL High 0.0-0.8 [facility] Comment on above: Performed By: #### C BC ####[address] Monocytes/100 WBC (Bld) 10.6 % Normal . [facility] Comment on above: Performed By: #### C BC ####[address] Neutrophils (Bld) [#/Vol] 7.3 10*3/uL Normal 1.8-7.7 [facility] Comment on above: Performed By: #### C BC ####[address] Neutrophils/100 WBC (Bld) 60.7 % Normal . [facility] Comment on above: Performed By: #### C BC ####[address] NRBC% 0.1 /100{WBC} Normal 0-0.5 [facility] Comment on above: Performed By: #### C BC ####[address] Platelet mean volume (Bld) [Entitic vol] 9.7 fL Normal 6.3-10.7 [facility] Comment on above: Performed By: #### C BC ####[address] Platelets (Bld) [#/Vol] 146 10*3/uL Low 150-450 [facility] Comment on above: Performed By: #### C BC ####[address] RBC (Bld) [#/Vol] 3.63 10*6/uL Normal 3.60-5.00 [facility] Comment on above: Performed By: #### C BC ####[address] WBC (Bld) [#/Vol] 12.0 10*3/uL High 3.8-11.6 [facility] Comment on above: Performed By: #### C BC ####[address] Creatinine [Mass/volume] in Serum or PlasmaOrdered By: Acosta Bo on 02-17-2025 Creatinine [Mass/Vol] Creatinine [Mass/v olume] in Serum or Plasma 0.60-1.20 [facility] ECG 12 lead ECGon 02-17-2025 ECG 12 lead ECG [facility] [address] [place] [address] [place] [address] Electrocardiograph Report Signed Patient: Daniela Raymundo MR#: [id number] [birth year] : 1945 Acct:[id number] Age/Sex: 80 / F ADM Date: 02/11/25 Loc: Room: [address] [place] [address] Type: ADM IN Attending Dr: Acosta Bo MD Ordering Provider: Natty Stout MD Date of Service: 02/17/25 ECG/ECG 12 lead ECG: Pre-cardioversion rhythm assessment Copies to: Test Reason : Blood Pressure : */* mmHG Vent. Rate : 113 BPM Atrial Rate : * BPM P-R Int : * ms QRS Dur : 74 ms QT Int : 356 ms P-R-T Axes : * 22 99 degrees QTcB Int : 488 ms Atrial fibrillation with rapid ventricular response with premature ventricular or aberrantly conducted complexes Nonspecific ST and T wave abnormality Abnormal ECG When compared with ECG of 16-Feb-2025 09:09, No significant change was found Confirmed by NATTY STOUT MD ([id number]) on 02/17/2025 3:21:49 PM Referred By: aNtty Stout Electronically Signed By: NATTY STOUT MD Transcribed By: BILLY Signed By Natty Stout MD 0 02/17/25 1521 Normal [facility] ECG post procedureon 025 ECG post procedure [place] [address] Electrocardiograph Report Signed Patient: Daniela Raymundo MR#: [id number] 2 : 1945 Acct:[id number] Age/Sex: 80 / F ADM Date: 02/11/25 Loc: Room: [address] [place] [address] Type: ADM IN Attending Dr: Acosta Bo MD Ordering Provider: Acosta Bo MD Date of Service: 02/17/25/ ECG/ECG post procedure: cv Copies to: Test Reason : Blood Pressure : */* mmHG Vent. Rate : 71 BPM Atrial Rate : 57 BPM P-R Int : 182 ms QRS Dur : 82 ms QT Int : 420 ms P-R-T Axes : 83 30 88 degrees QTcB Int : 456 ms Sinus bradycardia with sinus arrhythmia with occasional premature ventricular complexes Nonspecific ST and T wave abnormality Abnormal ECG Confirmed by NATTY STOUT MD ([id number]) on 02/17/2025 3:33:17 PM Referred By: Natty Stout Electronically Signed By: NATTY STOUT MD Transcribed By: MUS Signed By Natty Stout MD 0 02/17/25 1533 Normal [facility] Eosinophils Auto (Bld) [#/Vo l]Ordered By: Acosta Bo on 02-17-2025 Eosinophils (Bld) [#/Vol] Automated eosinophil count 0.0-0.45 [facility] Eosinophils/100 WBC Auto (Bl d)Ordered By: Acosta Bo on 02-17-2025 Eosinophils/100 WBC (Bld) Automated eosinophil % . [facility] Erythrocyte distribution wid th Auto (RBC) [Ratio]Ordered By: Acosta Bo on 02-17-2025 Erythrocyte distribution width (RBC) [Ratio] Erythrocyte distribution width [Ratio] by Automated count 11.9-15.3 [facility] Glucose [Mass/volume] in Ser um or PlasmaOrdered By: Acosta Bo on 02-17-2025 Glucose [Mass/Vol] Glucose [Mass/volume ] in Serum or Plasma High 70-100 [facility] Comment on above: ADA recommended refe rence rangeRandom Glucose Reference Range is dependent on time and content of last meal. Glucose of more than 200 mg/dL in a nonstressed, ambulatory subject supports the diagnosis of Diabetes Mellitus. Hematocrit Auto (Bld) [Volum e fraction]Ordered By: Acosta Bo on 02-17-2025 Hematocrit (Bld) [Volume fraction] Hematocrit [Volume Fraction] of Blood by Automated count Low 34.0-46.4 [facility] Hemoglobin [Mass/volume] in BloodOrdered By: Acosta Bo on 02-17-2025 Hemoglobin (Bld) [Mass/Vol] Hemoglobin [Mass/volume] in Blood Low 11.8-15.4 [facility] Leukocytes [#/volume] correc malina for nucleated erythrocytes in Blood by Automated counOrdered By: Acosta Bo on 02-17-2025 WBC corrected for nucl RBC Auto (Bld) [#/Vol] Leukocytes [#/volume] corrected for nucleated erythrocytes in Blood by Automated coun High 3.8-11.6 [facility] Lymphocytes Auto (Bld) [#/Vo l]Ordered By: Acosta Bo on 02-17-2025 Lymphocytes (Bld) [#/Vol] Lymphocytes [#/volume] in Blood by Automated count 1.00-4.8 [facility] Lymphocytes/100 WBC Auto (Bl d)Ordered By: Acosta Bo on 02-17-2025 Lymphocytes/100 WBC (Bld) Lymphocytes/100 leukocytes in Blood by Automated count . [facility] MCH Auto (RBC) [Entitic mass ]Ordered By: Acosta Bo on 02-17-2025 MCH (RBC) [Entitic mass] MCH [Entitic mass] by Automated count 24.7-34.3 [facility] MCHC Auto (RBC) [Mass/Vol]Or dered By: Acosta Bo on 02-17-2025 MCHC (RBC) [Mass/Vol] MCHC [Mass/volume] by Automated count 32.0-35.0 [facility] MCV Auto (RBC) [Entitic vol] Ordered By: Acosta Bo on 02-17-2025 MCV (RBC) [Entitic vol] MCV [Entitic vol ume] by Automated count 80-100 [facility] Monocytes Auto (Bld) [#/Vol] Ordered By: Acosta Bo on 02-17-2025 Monocytes (Bld) [#/Vol] Automated blood monocyte count High 0.0-0.8 [facility] Monocytes/100 WBC Auto (Bld) Ordered By: Acosta Bo on 02-17-2025 Monocytes/100 WBC (Bld) Automated monocyte % . [facility] Neutrophils Auto (Bld) [#/Vo l]Ordered By: Acosta Bo on 02-17-2025 Neutrophils (Bld) [#/Vol] Neutrophils [#/volume] in Blood by Automated count 1.8-7.7 [facility] Neutrophils/100 WBC Auto (Bl d)Ordered By: Acosta Bo on 02-17-2025 Neutrophils/100 WBC (Bld) Automated neutrophil % . [facility] No Panel InformationOrdered By: Acosta Bo on 05-23-2025 Estimated GFR (CKD-EPI) 45.195 mL/Min [facility] Creatinine Clearance (Chem 33.09 [facility] Nucleated erythrocytes [Pres ence] in Blood by Automated countOrdered By: Acosta Bo on 02-17-2025 Nucleated RBC Auto Ql (Bld) Nucleated erythrocytes [Presence] in Blood by Automated count 0-0.5 [facility] Platelet mean volume Auto (B ld) [Entitic vol]Ordered By: Acosta Bo on 02-17-2025 Platelet mean volume (Bld) [Entitic vol] Platelet mean volume [Entitic volume] in Blood by Automated count 6.3-10.7 [facility] Platelets Auto (Bld) [#/Vol] Ordered By: Acosta Bo on 02-17-2025 Platelets (Bld) [#/Vol] Platelets [#/vol ume] in Blood by Automated count Low 150-450 [facility] Potassium [Moles/volume] in Serum or PlasmaOrdered By: Acosta Bo on 02-17-2025 Potassium [Moles/Vol] Potassium [Moles/v olume] in Serum or Plasma 3.5-5.1 [facility] Comment on above: Hemolysis is present at a level that could interfere with the result.Contact lab if redraw is required RBC Auto (Bld) [#/Vol]Ordere d By: Acosta Bo on 02-17-2025 RBC (Bld) [#/Vol] Erythrocytes [#/volu me] in Blood by Automated count 3.60-5.00 [facility] Serum or plasma anion gap de terminationOrdered By: Acosta Bo on 02-17-2025 Anion gap [Moles/Vol] Serum or plasma an ion gap determination 6.0-15.0 [facility] Sodium [Moles/volume] in Ser um or PlasmaOrdered By: Acosta Bo on 02-17-2025 Sodium [Moles/Vol] Sodium [Moles/volume ] in Serum or Plasma 136-145 [facility] Urea nitrogen [Mass/volume] in Serum or PlasmaOrdered By: Acosta Bo on 02-17-2025 Urea nitrogen [Mass/Vol] Urea nitrogen [Mass/volume] in Serum or Plasma High 7-25 [facility] WBC Auto (Bld) [#/Vol]Ordere d By: Acosta Bo on 02-17-2025 WBC (Bld) [#/Vol] Leukocytes [#/volume ] in Blood by Automated count High 3.8-11.6 [facility] Basic Metabolic Panelon 01-27 Anion gap [Moles/Vol] 7.6 mmol/L Normal 6.0-15.0 [facility] Comment on above: Performed By: #### M G, CBC, BMP ####[place] [address] Calcium [Mass/Vol] 9.6 mg/dL Normal 8.6-10.3 [facility] Comment on above: Performed By: #### M G, CBC, BMP ####[place] [id number] [facility] Chloride [Moles/Vol] 99 mmol/L Normal 98-107 [facility] Comment on above: Performed By: #### M G, CBC, BMP ####[place] [id number] [facility] CO2 [Moles/Vol] 33.3 mmol/L High 21.0-31.0 [facility] Comment on above: Performed By: #### M G, CBC, BMP ####[place] [id number] [facility] Creatinine [Mass/Vol] 1.27 mg/dL High 0.60-1.20 [facility] Comment on above: Performed By: #### M G, CBC, BMP ####[address] [address] [place] Creatinine Clr Calc Pharmacy 31.21 Normal [facility] Comment on above: Performed By: #### M G, CBC, BMP ####[address] [facility] Estimated GFR 42.223 mL/Min Normal [facility] Comment on above: Performed By: #### M G, CBC, BMP ####[address] Glucose [Mass/Vol] 141 mg/dL High 70-100 [facility] Comment on above: Result Comment: [facility] Glucose Reference Range is dependent on time and content of last meal. Glucose of more than 200 mg/dL in a nonstressed, ambulatory subject supports the diagnosis of Diabetes Mellitus. ADA recommended reference range Performed By: #### M G, CBC, BMP ####[address] Potassium [Moles/Vol] 3.9 mmol/L Normal 3.5-5.1 [facility] Comment on above: Performed By: #### Emelyn Hugo, CBC, BMP ####[address] Sodium [Moles/Vol] 136 mmol/L Normal 136-145 [facility] Comment on above: Performed By: #### Emelyn Hugo, CBC, BMP ####[address] Urea nitrogen [Mass/Vol] 24 mg/dL Normal 7-25 [facility] Comment on above: Performed By: #### Emelyn Hugo, CBC, BMP ####[address] Complete Blood Count Auto Di ffon 02-16-2025 Basophils (Bld) [#/Vol] 0.1 10*3/uL Normal 0.0-0.2 [facility] Comment on above: Result Comment: PERF ORMED BY: [facility] [address] [facility] [place] [address] PATHOLOGIST IT ENGINEER ANA CLARK M.D. Performed By: #### M G, CBC, BMP ####[address] Basophils/100 WBC (Bld) 0.7 % Normal . T [facility] Comment on above: Performed By: #### Emelyn G, CBC, BMP ####[address] Eosinophils (Bld) [#/Vol] 0.4 10*3/uL Normal 0.0-0.45 [facility] Comment on above: Performed By: #### M G, CBC, BMP ####[address] Eosinophils/100 WBC (Bld) 3.6 % Normal . [facility] Comment on above: Performed By: #### M G, CBC, BMP ####[address] Erythrocyte distribution width (RBC) [Ratio] 14.2 % Normal 11.9-15.3 [facility] Comment on above: Performed By: #### M G, CBC, BMP ####[address] Hematocrit (Bld) [Volume fraction] 29.7 % Low 34.0-46.4 [facility] Comment on above: Performed By: #### M G, CBC, BMP ####[address] Hemoglobin (Bld) [Mass/Vol] 9.6 g/dL Low 11.8-15.4 [facility] Comment on above: Performed By: #### M G, CBC, BMP ####[address] Lymphocytes (Bld) [#/Vol] 3.3 10*3/uL Normal 1.00-4.8 [facility] Comment on above: Performed By: #### M G, CBC, BMP ####[address] Lymphocytes/100 WBC (Bld) 30.2 % Normal . [facility] Comment on above: Performed By: #### M G, CBC, BMP ####[address] MCH (RBC) [Entitic mass] 27.3 pg Normal 24.7-34.3 [facility] Comment on above: Performed By: #### M G, CBC, BMP ####[place] [id number] [facility] MCV (RBC) [Entitic vol] 84.0 fL Normal 80-100 [facility] Comment on above: Performed By: #### M G, CBC, BMP ####[address] Mean Corpuscular HGB Conc 32.5 g/dL Normal 32.0-35.0 [facility] Comment on above: Performed By: #### M G, CBC, BMP ####[address] Monocytes (Bld) [#/Vol] 1.3 10*3/uL High 0.0-0.8 [facility] Comment on above: Performed By: #### M G, CBC, BMP ####[address] Monocytes/100 WBC (Bld) 11.9 % Normal . [facility] Comment on above: Performed By: #### M G, CBC, BMP ####[address] Neutrophils (Bld) [#/Vol] 5.9 10*3/uL Normal 1.8-7.7 [facility] Comment on above: Performed By: #### M G, CBC, BMP ####[place] [id number] [facility] Neutrophils/100 WBC (Bld) 53.6 % Normal . [facility] Comment on above: Performed By: #### M G, CBC, BMP ####[address] NRBC% 0.2 /100{WBC} Normal 0-0.5 [facility] Comment on above: Performed By: #### M G, CBC, BMP ####[address] Platelet mean volume (Bld) [Entitic vol] 9.8 fL Normal 6.3-10.7 [facility] Comment on above: Performed By: #### M G, CBC, BMP ####[facility] [place] [id number] [facility] Platelets (Bld) [#/Vol] 159 10*3/uL Normal 150-450 [facility] Comment on above: Performed By: #### M G, CBC, BMP ####[place] [address] [place] [id number] [facility] RBC (Bld) [#/Vol] 3.53 10*6/uL Low 3.60-5.00 [facility] Comment on above: Performed By: #### M G, CBC, BMP ####[place] [address] [place] [id number] [facility] WBC (Bld) [#/Vol] 11.0 10*3/uL Normal 3.8-11.6 [facility] Comment on above: Performed By: #### M G, CBC, BMP ####[place] [id number] [facility] ECG 12 lead ECGon 02-16-2025 ECG 12 lead [place] [address] Electrocardiograph Report Signed Patient: Daniela Raymundo MR#: [id number] 2 : 1945 Acct:[id number] Age/Sex: 80 / F ADM Date: 02/11/25 Loc: Room: [address] [place] [address] Type: ADM IN Attending Dr: Acosta Bo MD Ordering Provider: Jeff Sol DO Date of Service: 02/16/25 ECG/ECG 12 lead ECG: betapace afib Copies to: Test Reason : Blood Pressure : */* mmHG Vent. Rate : 83 BPM Atrial Rate : * BPM P-R Int : * ms QRS Dur : 78 ms QT Int : 402 ms P-R-T Axes : * 8 112 degrees QTcB Int : 472 ms Atrial fibrillation with premature ventricular or aberrantly conducted complexes Abnormal ECG When compared with ECG of 15-Feb-2025 07:41, No significant change was found Confirmed by NATTY STOUT MD ([id number]) on 02/16/2025 10:55:10 AM Referred By: Electronically Signed By: NATTY STOUT MD Transcribed By: MUS Signed By Natty Stout MD 0 02/16/25 1055 Normal [facility] Magnesiumon 02-16-2025 Magnesium [Mass/Vol] 2.0 mg/dL Normal 1.9-2.7 [facility] Comment on above: Result Comment: PERF ORMED BY: [facility] [address] [facility] [place] [id number] PATHOLOGIST IT ENGINEER ANA CLARK M.D. Performed By: #### M G, CBC, BMP ####[address] Magnesium [Mass/volume] in S stacia or PlasmaOrdered By: Acosta Bo on 02-16-2025 Magnesium [Mass/Vol] Magnesium [Mass/vol ume] in Serum or Plasma 1.9-2.7 [facility] Basic Metabolic Panelon 01-27 Anion gap [Moles/Vol] 8.6 mmol/L Normal 6.0-15.0 [facility] Comment on above: Performed By: #### B MP, CBC ####[address] Calcium [Mass/Vol] 9.2 mg/dL Normal 8.6-10.3 [facility] Comment on above: Performed By: #### B MP, CBC ####[place] [id number] [facility] Chloride [Moles/Vol] 101 mmol/L Normal 98-107 [facility] Comment on above: Performed By: #### B MP, CBC ####[place] [id number] [facility] CO2 [Moles/Vol] 31.3 mmol/L High 21.0-31.0 [facility] Comment on above: Performed By: #### B MP, CBC ####[place] [id number] [facility] Creatinine [Mass/Vol] 1.35 mg/dL High 0.60-1.20 [facility] Comment on above: Performed By: #### B MP, CBC ####[address] Creatinine Clr Calc Pharmacy 29.36 Normal [facility] Comment on above: Result Comment: PERF ORMED BY: [facility] [address] [place] [address] PATHOLOGIST IT ENGINEER ANA CLARK M.D. Performed By: #### B MP, CBC ####[address] Estimated GFR 39.238 mL/Min Normal [facility] Comment on above: Performed By: #### B MP, CBC ####[address] Glucose [Mass/Vol] 146 mg/dL High 70-100 [facility] Comment on above: Result Comment: [place] Glucose Reference Range is dependent on time and content of last meal. Glucose of more than 200 mg/dL in a nonstressed, ambulatory subject supports the diagnosis of Diabetes Mellitus. ADA recommended reference range Performed By: #### B MP, CBC ####[address] Potassium [Moles/Vol] 3.9 mmol/L Normal 3.5-5.1 [facility] Comment on above: Performed By: #### B MP, CBC ####[address] Sodium [Moles/Vol] 137 mmol/L Normal 136-145 [facility] Comment on above: Performed By: #### B MP, CBC ####[address] Urea nitrogen [Mass/Vol] 19 mg/dL Normal 7-25 [facility] Comment on above: Performed By: #### B MP, CBC ####[address] Complete Blood Count Auto Di ffon 02-15-2025 Basophils (Bld) [#/Vol] 0.1 10*3/uL Normal 0.0-0.2 [facility] Comment on above: Result Comment: PERF ORMED BY: [facility] [place] [address] PATHOLOGIST IT ENGINEER ANA CLARK M.D. Performed By: #### B MP, CBC ####[address] Basophils/100 WBC (Bld) 0.8 % Normal . [facility] Comment on above: Performed By: #### B MP, CBC ####[address] Eosinophils (Bld) [#/Vol] 0.4 10*3/uL Normal 0.0-0.45 [facility] Comment on above: Performed By: #### B MP, CBC ####[address] Eosinophils/100 WBC (Bld) 3.2 % Normal . [facility] Comment on above: Performed By: #### B MP, CBC ####[address] Erythrocyte distribution width (RBC) [Ratio] 14.7 % Normal 11.9-15.3 [facility] Comment on above: Performed By: #### B MP, CBC ####[address] Hematocrit (Bld) [Volume fraction] 30.1 % Low 34.0-46.4 [facility] Comment on above: Performed By: #### B MP, CBC ####[address] Hemoglobin (Bld) [Mass/Vol] 9.8 g/dL Low 11.8-15.4 [facility] Comment on above: Performed By: #### B MP, CBC ####[address] Lymphocytes (Bld) [#/Vol] 2.3 10*3/uL Normal 1.00-4.8 [facility] Comment on above: Performed By: #### B MP, CBC ####[address] Lymphocytes/100 WBC (Bld) 20.1 % Normal . [facility] Comment on above: Performed By: #### B MP, CBC ####[address] MCH (RBC) [Entitic mass] 26.8 pg Normal 24.7-34.3 [facility] Comment on above: Performed By: #### B MP, CBC ####[address] MCV (RBC) [Entitic vol] 82.8 fL Normal 80-100 [facility] Comment on above: Performed By: #### B MP, CBC ####[address] Mean Corpuscular HGB Conc 32.4 g/dL Normal 32.0-35.0 [facility] Comment on above: Performed By: #### B MP, CBC ####[address] Monocytes (Bld) [#/Vol] 1.2 10*3/uL High 0.0-0.8 [facility] Comment on above: Performed By: #### B MP, CBC ####[address] Monocytes/100 WBC (Bld) 10.7 % Normal . [facility] Comment on above: Performed By: #### B MP, CBC ####[address] Neutrophils (Bld) [#/Vol] 7.3 10*3/uL Normal 1.8-7.7 [facility] Comment on above: Performed By: #### B MP, CBC ####[address] Neutrophils/100 WBC (Bld) 65.2 % Normal . [facility] Comment on above: Performed By: #### B MP, CBC ####[address] NRBC% 0.0 /100{WBC} Normal 0-0.5 [facility] Comment on above: Performed By: #### B MP, CBC ####[address] Platelet mean volume (Bld) [Entitic vol] 9.6 fL Normal 6.3-10.7 [facility] Comment on above: Performed By: #### B MP, CBC ####[address] Platelets (Bld) [#/Vol] 165 10*3/uL Normal 150-450 [facility] Comment on above: Performed By: #### B MP, CBC ####[address] RBC (Bld) [#/Vol] 3.64 10*6/uL Normal 3.60-5.00 [facility] Comment on above: Performed By: #### B MP, CBC ####[address] WBC (Bld) [#/Vol] 11.2 10*3/uL Normal 3.8-11.6 [facility] Comment on above: Performed By: #### B MP, CBC ####[address] ECG 12 lead ECGon 02-15-2025 ECG 12 lead ECG [facility] Main [place] [address] [place] [address] Electrocardiograph Report Signed Patient: Daniela Raymundo MR#: [id number] 2 : 1945 Acct:[id number] Age/Sex: 80 / F ADM Date: 02/11/25 Loc: Room: [address] [place] [address] Type: ADM IN Attending Dr: Acosta Bo MD Ordering Provider: Eliezer Potts MD, FACC Date of Service: 02/15/25 ECG/ECG 12 lead ECG: Atrial fibrillation Copies to: Test Reason : Blood Pressure : */* mmHG Vent. Rate : 123 BPM Atrial Rate : * BPM P-R Int : * ms QRS Dur : 74 ms QT Int : 334 ms P-R-T Axes : * 9 138 degrees QTcB Int : 478 ms Atrial fibrillation with rapid ventricular response with premature ventricular or aberrantly conducted complexes Abnormal ECG When compared with ECG of 14-Feb-2025 07:31, No significant change was found Confirmed by NATTY STOUT MD ([id number]) on 02/15/2025 9:56:04 AM Referred By: Electronically Signed By: NATTY TSOUT MD Transcribed By: MUS Signed By Natty Stout MD 0 02/15/25 0956 Normal [facility] Basic Metabolic Panelon 01-27 Anion gap [Moles/Vol] 9.5 mmol/L Normal 6.0-15.0 [facility] Comment on above: Performed By: #### B MP, HS TROP ####[place] [address] [place] [address] [place] Calcium [Mass/Vol] 9.2 mg/dL Normal 8.6-10.3 [facility] Comment on above: Performed By: #### B MP, HS TROP ####[place] [address] [place] [address] [place] Chloride [Moles/Vol] 104 mmol/L Normal 98-107 [facility] Comment on above: Performed By: #### B MP, HS TROP ####[facility] [place] [address] [place] CO2 [Moles/Vol] 26.5 mmol/L Normal 21.0-31.0 [facility] Comment on above: Performed By: #### B MP, HS TROP ####[facility] [place] [address] [facility] Creatinine [Mass/Vol] 1.43 mg/dL High 0.60-1.20 [facility] Comment on above: Performed By: #### B MP, HS TROP ####[facility] [place] [id number] [facility] Creatinine Clr Calc Pharmacy 27.73 Normal [facility] Comment on above: Result Comment: PERF ORMED BY: [facility] [place] [address] PATHOLOGIST IT ENGINEER ANA CLARK M.D. Performed By: #### B MP, HS TROP ####[address] Estimated GFR 36.619 mL/Min Normal [facility] Comment on above: Performed By: #### B MP, HS TROP ####[place] [address] Glucose [Mass/Vol] 156 mg/dL High 70-100 [facility] Comment on above: Result Comment: [facility] Glucose Reference Range is dependent on time and content of last meal. Glucose of more than 200 mg/dL in a nonstressed, ambulatory subject supports the diagnosis of Diabetes Mellitus. ADA recommended reference range Performed By: #### B MP, HS TROP ####[address] Potassium [Moles/Vol] 4.0 mmol/L Normal 3.5-5.1 [facility] Comment on above: Result Comment: Hemo lysis is present at a level that could interfere with the result. Contact lab if redraw is required Performed By: #### B MP, HS TROP ####[place] [id number] [facility] Sodium [Moles/Vol] 136 mmol/L Normal 136-145 [facility] Comment on above: Performed By: #### B MP, HS TROP ####[place] [id number] [facility] Urea nitrogen [Mass/Vol] 20 mg/dL Normal 7-25 [facility] Comment on above: Performed By: #### B MP, HS TROP ####[place] [id number] [facility] Complete Blood Count Auto Di ffon 02-14-2025 Basophils (Bld) [#/Vol] 0.1 10*3/uL Normal 0.0-0.2 [facility] Comment on above: Result Comment: PERF ORMED BY: [facility] [place] [address] PATHOLOGIST IT ENGINEER ANA CLARK M.D. Performed By: #### C BC ####[address] Basophils/100 WBC (Bld) 0.4 % Normal . [facility] Comment on above: Performed By: #### C BC ####[address] Eosinophils (Bld) [#/Vol] 0.3 10*3/uL Normal 0.0-0.45 [facility] Comment on above: Performed By: #### C BC ####[address] Eosinophils/100 WBC (Bld) 2.6 % Normal . [facility] Comment on above: Performed By: #### C BC ####[address] Erythrocyte distribution width (RBC) [Ratio] 14.8 % Normal 11.9-15.3 [facility] Comment on above: Performed By: #### C BC ####[address] Hematocrit (Bld) [Volume fraction] 30.1 % Low 34.0-46.4 [facility] Comment on above: Performed By: #### C BC ####[address] Hemoglobin (Bld) [Mass/Vol] 9.8 g/dL Low 11.8-15.4 [facility] Comment on above: Performed By: #### C BC ####[address] Lymphocytes (Bld) [#/Vol] 1.9 10*3/uL Normal 1.00-4.8 [facility] Comment on above: Performed By: #### C BC ####[place] [id number] [facility] Lymphocytes/100 WBC (Bld) 15.3 % Normal . [facility] Comment on above: Performed By: #### C BC ####[place] [id number] [facility] MCH (RBC) [Entitic mass] 27.2 pg Normal 24.7-34.3 [facility] Comment on above: Performed By: #### C BC ####[place] [id number] [facility] MCV (RBC) [Entitic vol] 84.1 fL Normal 80-100 [facility] Comment on above: Performed By: #### C BC ####[address] Mean Corpuscular HGB Conc 32.4 g/dL Normal 32.0-35.0 [facility] Comment on above: Performed By: #### C BC ####[place] [id number] [facility] Monocytes (Bld) [#/Vol] 1.4 10*3/uL High 0.0-0.8 [facility] Comment on above: Performed By: #### C BC ####[place] [id number] [facility] Monocytes/100 WBC (Bld) 11.1 % Normal . [facility] Comment on above: Performed By: #### C BC ####[place] [id number] [facility] Neutrophils (Bld) [#/Vol] 8.8 10*3/uL High 1.8-7.7 [facility] Comment on above: Performed By: #### C BC ####[place] [address] [facility] Neutrophils/100 WBC (Bld) 70.6 % Normal . [facility] Comment on above: Performed By: #### C BC ####[place] [id number] [facility] NRBC% 0.0 /100{WBC} Normal 0-0.5 [facility] Comment on above: Performed By: #### C BC ####[place] [id number] [facility] Platelet mean volume (Bld) [Entitic vol] 10.2 fL Normal 6.3-10.7 [facility] Comment on above: Performed By: #### C BC ####[place] [id number] [facility] Platelets (Bld) [#/Vol] 159 10*3/uL Normal 150-450 [facility] Comment on above: Performed By: #### C BC ####[address] RBC (Bld) [#/Vol] 3.59 10*6/uL Low 3.60-5.00 [facility] Comment on above: Performed By: #### C BC ####[address] WBC (Bld) [#/Vol] 12.4 10*3/uL High 3.8-11.6 [facility] Comment on above: Performed By: #### C BC ####[address] ECG 12 lead ECGon 02-14-2025 ECG 12 lead ECG [facility] Main [place] [address] [place] [address] Electrocardiograph Report Signed Patient: Daniela Raymundo MR#: [id number] 2 : 1945 Acct:[id number] Age/Sex: 80 / F ADM Date: 02/11/25 Loc: Room: [address] [place] [address] Type: ADM IN Attending Dr: Acosta Bo MD Ordering Provider: Jeff Sol DO Date of Service: 02/14/25 ECG/ECG 12 lead ECG: Post Angioplasty Procedure in AM Copies to: Test Reason : Blood Pressure : */* mmHG Vent. Rate : 112 BPM Atrial Rate : * BPM P-R Int : * ms QRS Dur : 76 ms QT Int : 286 ms P-R-T Axes : * 12 134 degrees QTcB Int : 390 ms Atrial flutter with rapid ventricular response Abnormal ECG When compared with ECG of 13-Feb-2025 11:40, No significant change was found Confirmed by NATTY STOUT MD ([id number]) on 02/14/2025 9:56:26 AM Referred By: Electronically Signed By: NATTY STOUT MD Transcribed By: MUS Signed By Natty Stout MD 0 02/14/25 0956 Normal [facility] echo transthoracicon [facility] echo transthoracic [facility] Main [place] [address] [place] [address] Echocardiogram Signed Patient: Daniela Raymundo MR#: [id number] 2 : 1945 Acct:[id number] Age/Sex: 80 / F ADM Date: 02/11/25 Loc: Room: [address] [place] [address] Type: ADM IN Attending Dr: Acosta Bo MD Ordering Provider: Eliezer Potts MD, [facility] [facility] Date of Service: 02/14/25 [facility]/FORMERLY [facility] echo transthoracic: Atrial fibrillation with RVR Copies to: Eliezer Potts MD, [facility] Natty Stout MD RVT BSA: 1.7 m2 BP: 104/54 mmHg HR: 112 Reason For Study: Atrial fibrillation with RVR History: ACS, CKD, CAD, Angina, DM Interpretation Summary The left ventricular size and thickness are normal. Ejection Fraction = 45-50%. The LV ejection fraction is mildly decreased . The left atrium appears mildly dilated. There is mild mitral regurgitation. There is mild tricuspid regurgitation. The patient was in atrial fibrillation through out the study. Compared to prior study, changes are noted. LVEF is lower and the patient is now in atrial fibrillation. Procedure/Quality: A two-dimensional transthoracic echocardiogram with color flow, Doppler and injection of contrast agent Definity was performed. A two- dimensional transthoracic echocardiogram with color flow and Doppler was performed. The study was technically good in quality. Left Ventricle: The left ventricular size and thickness are normal. Ejection Fraction = 45-50%. The LV ejection fraction is mildly decreased . Left Atrium: The left atrium appears mildly dilated. The atrial septum appears normal. Right Atrium: The right atrium appears normal in size. Right Ventricle: The right ventricular size, thickness and function are normal. Aortic Valve: The aortic valve is normal in structure and function. No aortic regurgitation is present. Mitral Valve: The mitral valve is normal in structure and function. There is mild mitral regurgitation. Tricuspid Valve: The tricuspid valve is normal in structure and function. There is mild tricuspid regurgitation. Right ventricular systolic pressure is normal. Pulmonic Valve: The pulmonic valve is normal in structure and function. Arteries: The aortic root is normal size. Pericardium/Pleura: No pericardial effusion seen. There is no pleural effusion. IVC/Hepatic Veins: The inferior vena cava is normal in size, with a normal collapsibility index. Miscellaneous: The patient was in atrial fibrillation through out the study. Measurements with Normals IVSd: 0.90 cm (0.7-1.1 cm)LVIDd: 4.5 cm (3.7-5.4 cm) LVPWd: 0.90 cm (0.7-1.1 cm)LVIDs: 3.2 cm (2.3-3.6 cm) LA dimension: 3.9 cm(2.3-4.0 cm)Ao root diam: 2.7 cm(2.0-3.6 cm) Doppler with Normals RVSP(TR): 18.7 mmHg (18-35mmHg) LV V1 max: 68.6 cm/sec(0.7-1.7m/s)MV E max florina: 110.4 cm/sec(0.8-1.3m/s) MMode/2D Measurements Calculations TAPSE: 1.8 cm FS: 28.9 % Ao root area: LVOT diam: 1.8 cm RV S Florina: EDV(Teich): 92.4 ml 5.7 cm2 LVOT area: 2.5 cm2 8.0 cm/sec ESV(Teich): 41.0 ml EF(Teich): 55.7 % __ LVLd ap4: 6.7 cm SV(MOD-sp4): 30.5 ml LAV(MOD-sp4): LA A2 area: 20.6 cm2 EDV(MOD-sp4): 76.0 ml 67.0 ml LAV(MOD-sp2): LA A4 area: 24.1 cm2 LVLs ap4: 5.6 cm 60.6 ml LA length (vol): ESV(MOD-sp4): 6.1 cm 36.5 ml LA vol: 69.5 ml EF(MOD-sp4): LA vol index: 45.5 % 41.1 ml/m2 __ RA Volume: 37.2 mlRA Volume Index: 22.0 ml/m2 Doppler Measurements Calculations MV dec time: MV V2 max: MV dec slope: Ao V2 max: 0.13 sec 123.0 cm/sec 127.0 cm/sec MV max P.0 cm/sec2 Ao max P.5 mmHg 86.0 mmHg Ao mean PG: MV V2 mean: 4.0 mmHg 77.3 cm/sec Ao V2 mean: MV mean P.2 cm/sec 3.0 mmHg Ao V2 VTI: 22.2 cm MV V2 VTI: 20.6 cm FAUZIA(I,D): 1.5 cm2 MVA(VTI): 1.6 cm2 FAUZAI(V,D): 1.4 cm2 __ LV V1 max PG: MR max florina: TV max P.0 mmHg TR max florina: 1.9 mmHg 465.0 cm/sec 198.0 cm/sec LV V1 mean PG: MR max PG: TR max P.0 mmHg 86.5 mmHg 15.7 mmHg LV V1 mean: RAP systole: 46.5 cm/sec 3.0 mmHg LV V1 VTI: 13.2 cm Transcribed By: SCV Performed At: 02/14/25 1130 Signed By: Natty Stout MD 02/14/25 1247 Normal [facility] Troponin I High Sensitivityo n 02-14-2025 Troponin I High Sensitivity 1128 Off scale high 0-15 [facility] Comment on above: Result Comment: Facundot ical Result : Called to and read back by: GAYLE MARLEY at: 02/14/2025 07:28:01 by:[id number] The Troponin units of report have been changed to meet the Chest Pain Accreditation requirement, element EC5.M1l2. Troponin units are changed from pg/ml to ng/L. Also, the decimal is removed and results are in whole numbers. PERFORMED BY: [facility] [address] [place] [id number] PATHOLOGIST IT ENGINEER ANA CLARK M.D. Performed By: #### B MP, HS TROP ####[place] [id number] [facility] Troponin I.cardiac [Mass/vol ume] in Serum or Plasma by Detection limit <= 0.01 ng/Ordered By: Marcos Neves on 02-14-2025 Troponin I.cardiac DL <= 0.01 ng/mL [Mass/Vol] Troponin I.cardiac [Mass/volume] in Serum or Plasma by Detection limit <= 0.01 ng/ Critically high 0-15 [facility] Comment on above: Critical Result : Ca lled to and read back by: GAYLE MARLEY at: 02/14/2025 07:28:01 by:[id number] Troponin units of report have been changed to meet the Chest Pain Accreditation requirement, element EC5.M1l2. Troponin units are changed from pg/ml to ng/L. Also, the decimal is removed and results are in whole numbers. Basic Metabolic Panelon 01-26 Anion gap [Moles/Vol] 13.1 mmol/L Normal 6.0-15.0 [facility] Comment on above: Performed By: #### B MP ####[place] [id number] [facility] Calcium [Mass/Vol] 9.0 mg/dL Normal 8.6-10.3 [facility] Comment on above: Performed By: #### B MP ####[place] [id number] [facility] Chloride [Moles/Vol] 106 mmol/L Normal 98-107 [facility] Comment on above: Performed By: #### B MP ####[place] [id number] [facility] CO2 [Moles/Vol] 23.4 mmol/L Normal 21.0-31.0 [facility] Comment on above: Performed By: #### B MP ####[place] [id number] [facility] Creatinine [Mass/Vol] 1.50 mg/dL High 0.60-1.20 [facility] Comment on above: Performed By: #### B MP ####[address] Creatinine Clr Calc Pharmacy 26.40 Normal [facility] Comment on above: Result Comment: PERF ORMED BY: [facility] [address] [facility] [place] [address] PATHOLOGIST IT ENGINEER ANA CLARK M.D. Performed By: #### B MP ####[address] Estimated GFR 34.578 mL/Min Normal [facility] Comment on above: Performed By: #### B MP ####[place] [id number] [facility] Glucose [Mass/Vol] 98 mg/dL Normal 70-100 [facility] Comment on above: Result Comment: [place] Glucose Reference Range is dependent on time and content of last meal. Glucose of more than 200 mg/dL in a nonstressed, ambulatory subject supports the diagnosis of Diabetes Mellitus. ADA recommended reference range Performed By: #### B MP ####[place] [id number] [facility] Potassium [Moles/Vol] 4.5 mmol/L Normal 3.5-5.1 [facility] Comment on above: Performed By: #### B MP ####[address] [place] [address] [facility] Sodium [Moles/Vol] 138 mmol/L Normal 136-145 [facility] Comment on above: Performed By: #### B MP ####[place] [address] [place] [id number] [facility] Urea nitrogen [Mass/Vol] 21 mg/dL Normal 7-25 [facility] Comment on above: Performed By: #### B MP ####[place] [id number] [facility] Complete Blood Count Auto Di ffon 02-13-2025 Basophils (Bld) [#/Vol] 0.1 10*3/uL Normal 0.0-0.2 [facility] Comment on above: Order Comment: REDRA W: PRIOR SAMPLE QNS Result Comment: PERF ORMED BY: [facility] [address] [place] [address] PATHOLOGIST IT ENGINEER ANA CLARK M.D. Performed By: #### G LULS #### Point of Care testing , Basophils/100 WBC (Bld) 1.0 % Normal . [facility] Comment on above: Order Comment: REDRA W: PRIOR SAMPLE QNS Performed By: #### G LULS #### Point of Care testing , Eosinophils (Bld) [#/Vol] 0.5 10*3/uL High 0.0-0.45 [facility] Comment on above: Order Comment: REDRA W: PRIOR SAMPLE QNS Performed By: #### G LULS #### Point of Care testing , Eosinophils/100 WBC (Bld) 3.6 % Normal . [facility] Comment on above: Order Comment: REDRA W: PRIOR SAMPLE QNS Performed By: #### G LULS #### Point of Care testing , Erythrocyte distribution width (RBC) [Ratio] 14.9 % Normal 11.9-15.3 [facility] Comment on above: Order Comment: REDRA W: PRIOR SAMPLE QNS Performed By: #### G LULS #### Point of Care testing , Hematocrit (Bld) [Volume fraction] 33.1 % Low 34.0-46.4 [facility] Comment on above: Order Comment: REDRA W: PRIOR SAMPLE QNS Performed By: #### G LULS #### Point of Care testing , Hemoglobin (Bld) [Mass/Vol] 10.7 g/dL Low 11.8-15.4 [facility] Comment on above: Order Comment: REDRA W: PRIOR SAMPLE QNS Performed By: #### G LULS #### Point of Care testing , Lymphocytes (Bld) [#/Vol] 4.3 10*3/uL Normal 1.00-4.8 [facility] Comment on above: Order Comment: REDRA W: PRIOR SAMPLE QNS Performed By: #### G LULS #### Point of Care testing , Lymphocytes/100 WBC (Bld) 32.9 % Normal . [facility] Comment on above: Order Comment: REDRA W: PRIOR SAMPLE QNS Performed By: #### G LULS #### Point of Care testing , MCH (RBC) [Entitic mass] 26.9 pg Normal 24.7-34.3 [facility] Comment on above: Order Comment: REDRA W: PRIOR SAMPLE QNS Performed By: #### G LULS #### Point of Care testing , MCV (RBC) [Entitic vol] 83.2 fL Normal 80-100 [facility] Comment on above: Order Comment: REDRA W: PRIOR SAMPLE QNS Performed By: #### G LULS #### Point of Care testing , Mean Corpuscular HGB Conc 32.3 g/dL Normal 32.0-35.0 [facility] Comment on above: Order Comment: REDRA W: PRIOR SAMPLE QNS Performed By: #### G LULS #### Point of Care testing , Monocytes (Bld) [#/Vol] 1.5 10*3/uL High 0.0-0.8 [facility] Comment on above: Order Comment: REDRA W: PRIOR SAMPLE QNS Performed By: #### G LULS #### Point of Care testing , Monocytes/100 WBC (Bld) 11.1 % Normal . [facility] Comment on above: Order Comment: REDRA W: PRIOR SAMPLE QNS Performed By: #### G LULS #### Point of Care testing , Neutrophils (Bld) [#/Vol] 6.7 10*3/uL Normal 1.8-7.7 [facility] Comment on above: Order Comment: REDRA W: PRIOR SAMPLE QNS Performed By: #### G LULS #### Point of Care testing , Neutrophils/100 WBC (Bld) 51.4 % Normal . [facility] Comment on above: Order Comment: REDRA W: PRIOR SAMPLE QNS Performed By: #### G LULS #### Point of Care testing , NRBC% 0.1 /100{WBC} Normal 0-0.5 [facility] Comment on above: Order Comment: REDRA W: PRIOR SAMPLE QNS Performed By: #### G LULS #### Point of Care testing , Platelet mean volume (Bld) [Entitic vol] 9.8 fL Normal 6.3-10.7 [facility] Comment on above: Order Comment: REDRA W: PRIOR SAMPLE QNS Performed By: #### G LULS #### Point of Care testing , Platelets (Bld) [#/Vol] 179 10*3/uL Normal 150-450 [facility] Comment on above: Order Comment: REDRA W: PRIOR SAMPLE QNS Performed By: #### G LULS #### Point of Care testing , RBC (Bld) [#/Vol] 3.97 10*6/uL Normal 3.60-5.00 [facility] Comment on above: Order Comment: REDRA W: PRIOR SAMPLE QNS Performed By: #### G LULS #### Point of Care testing , WBC (Bld) [#/Vol] 13.1 10*3/uL High 3.8-11.6 [facility] Comment on above: Order Comment: REDRA W: PRIOR SAMPLE QNS Performed By: #### G LULS #### Point of Care testing , ECG 12 lead ECGon 02-13-2025 ECG 12 lead [place] [address] Electrocardiograph Report Signed Patient: Daniela Raymundo MR#: [id number] 2 : 1945 Acct:[id number] Age/Sex: 80 / F ADM Date: 02/11/25 Loc: Room: [address] [place] [address] Type: ADM IN Attending Dr: Acosta Bo MD Ordering Provider: Jeff Sol DO Date of Service: 02/13/25 ECG/ECG 12 lead ECG: Post Angioplasty Procedure Copies to: Test Reason : Blood Pressure : */* mmHG Vent. Rate : 114 BPM Atrial Rate : 250 BPM P-R Int : * ms QRS Dur : 74 ms QT Int : 388 ms P-R-T Axes : * 43 129 degrees QTcB Int : 534 ms Atrial flutter with variable AV block Nonspecific ST and T wave abnormality Abnormal ECG When compared with ECG of 13-Feb-2025 07:25, (Unconfirmed) Nonspecific T wave abnormality now evident in Inferior leads Nonspecific T wave abnormality now evident in Anterior leads T wave inversion no longer evident in Lateral leads Confirmed by NATTY STOUT MD ([id number]) on 02/13/2025 3:52:02 PM Referred By: Electronically Signed By: NATTY STOUT MD Transcribed By: MUS Signed By Natty Stout MD 0 02/13/25 1552 Normal [facility] ECG 12 lead [place] [address] Electrocardiograph Report Signed Patient: Daniela Raymundo MR#: [id number] 2 : 1945 Acct:[id number] Age/Sex: 80 / F ADM Date: 02/11/25 Loc: Room: [address] [place] [address] Type: ADM IN Attending Dr: Acosta Bo MD Ordering Provider: Eliezer Potts MD, [facility] Date of Service: 02/13/25 ECG/ECG 12 lead ECG: Atrial fibrillation Copies to: Test Reason : Blood Pressure : */* mmHG Vent. Rate : 110 BPM Atrial Rate : * BPM P-R Int : * ms QRS Dur : 76 ms QT Int : 352 ms P-R-T Axes : * 10 130 degrees QTcB Int : 476 ms Atrial flutter with rapid ventricular response Abnormal ECG When compared with ECG of 12-Feb-2025 07:08, (Unconfirmed) Nonspecific T wave abnormality no longer evident in Inferior leads T wave inversion more evident in Lateral leads Confirmed by NATTY STOUT MD ([id number]) on 02/13/2025 1:37:04 PM Referred By: Electronically Signed By: NATTY STOUT MD Transcribed By: MUS Signed By Natty Stout MD 0 02/13/25 1337 Normal [facility] Partial Thromboplastin Timeo n 02-13-2025 aPTT Coag (Bld) [Time] 70.7 s High 25.1-36.5 [facility] Comment on above: Result Comment: A he matocrit value greater than 55% may lead to inaccurate results in coagulation testing. Patients having hematocrit values >55% require a special collection tube for coagulation studies. Please contact the laboratory at [phone] for redraw instructions. PERFORMED BY: [place] [id number] PATHOLOGIST IT ENGINEER ANA CLARK M.D. Performed By: #### P TT ####[facility] Aeh[address] X-ray reportOrdered By: Jose Luis Nicholas on 02-13-2025 Study report [place] [address] XRay Report Signed Patient: Daniela Raymundo MR#: [id number] : 1945 Acct:[id number] Age/Sex: 80 / F ADM Date: 5 Loc: Room: [address] [place] [address] Type: ADM IN Attending Dr: Marcos Neves DO Copies to: Marcos Nvees DO~ Ordering Provider: Marcos Neves DO Date of Service: 02/13/25 XR/XR chest 1V portable: dyspnea XR chest 1V portable 02/12/2025 1:23 PM SIGNS AND SYMPTOMS: Shortness of breath, wheezing PROTOCOL: Frontal radiograph of the chest COMPARISON: 02/11/2025 FINDINGS: The trachea is midline. There is evidence of prior sternotomy. The heart and mediastinal structures are within normal limits. The lung parenchyma is clear. The bony thorax is intact. Degenerative changes are noted in the shoulders and thoracic spine. XR/XR chest 1V portable IMPRESSION: No acute cardiopulmonary pathology. Impression dictated by: Jose Luis Nicholas M.D. 02/13/2025 8:09 AM Dictation Location: [place] [address] Transcribed By: NATALY 02/13/25 0809 Dictated By: Jose Luis Nicholas II, MD 02/13/25 0808 Signed By: 02/13/25 0809 [facility] Work Phone: XR chest 1V portableon 02-13 XR chest 1V portable [facility] [place] [address] XRay Report Signed Patient: Daniela Raymundo MR#: [id number] 2 : 1945 Acct:[id number] Age/Sex: 80 / F ADM Date: 02/11/25 Loc: Room: [address] [place] [address] Type: ADM IN Attending Dr: Marcos Neves DO Copies to: Marcos Neves DO Ordering Provider: Marcos Neves DO Date of Service: 02/13/25 XR/XR chest 1V portable: dyspnea XR chest 1V portable 02/12/2025 1:23 PM SIGNS AND SYMPTOMS: Shortness of breath, wheezing PROTOCOL: Frontal radiograph of the chest COMPARISON: 02/11/2025 FINDINGS: The trachea is midline. There is evidence of prior sternotomy. The heart and mediastinal structures are within normal limits. The lung parenchyma is clear. The bony thorax is intact. Degenerative changes are noted in the shoulders and thoracic spine. XR/XR chest 1V portable IMPRESSION: No acute cardiopulmonary pathology. Impression dictated by: Jose Luis Nicholas M.D. 02/13/2025 8:09 AM Dictation Location: [place] [address] Transcribed By: NATALY 02/13/25808 Dictated By: Jose Luis Nicholas II, MD 02/13/25807 Signed By: 02/13/25808 Normal [facility] aPTT in Platelet poor plasma by Coagulation assayOrdered By: Marcos Neves on 02-13-2025 aPTT Coag (PPP) [Time] Activated partial thromboplastin time (aPTT) in platelet poor plasma by coagulation a High 25.1-36.5 [facility] Comment on above: A hematocrit value g reater than 55% may lead to inaccurate results in coagulation testing. Patients having hematocrit values >55% require a special collection tube for coagulation studies. Please contact the laboratory at [phone] for redraw instructions. Basic Metabolic Panelon 01-26 Anion gap [Moles/Vol] 9.9 mmol/L Normal 6.0-15.0 [facility] Comment on above: Order Comment: FASTI NG Y Performed By: #### B MP, CBC, MG, LIPID ####[place] [id number] [facility] Calcium [Mass/Vol] 9.2 mg/dL Normal 8.6-10.3 [facility] Comment on above: Order Comment: FASTI NG Y Performed By: #### B MP, CBC, MG, LIPID ####[place] [address] [place] [address] [facility] Chloride [Moles/Vol] 108 mmol/L High 98-107 [facility] Comment on above: Order Comment: FASTI NG Y Performed By: #### B MP, CBC, MG, LIPID ####[address] [facility] CO2 [Moles/Vol] 23.8 mmol/L Normal 21.0-31.0 [facility] Comment on above: Order Comment: FASTI NG Y Performed By: #### B MP, CBC, MG, LIPID ####[address] [facility] Creatinine [Mass/Vol] 1.27 mg/dL High 0.60-1.20 [facility] Comment on above: Order Comment: FASTI NG Y Performed By: #### B MP, CBC, MG, LIPID ####[place] [address] Creatinine Clr Calc Pharmacy 31.18 Normal [facility] Comment on above: Order Comment: FASTI NG Y Performed By: #### B MP, CBC, MG, LIPID ####[place] [address] [place] [id number] [facility] Estimated GFR 42.223 mL/Min Normal [facility] Comment on above: Order Comment: FASTI NG Y Performed By: #### B MP, CBC, MG, LIPID ####[place] [address] Glucose [Mass/Vol] 135 mg/dL High 70-100 [facility] Comment on above: Order Comment: FASTI NG Y Result Comment: [place] Glucose Reference Range is dependent on time and content of last meal. Glucose of more than 200 mg/dL in a nonstressed, ambulatory subject supports the diagnosis of Diabetes Mellitus. ADA recommended reference range Performed By: #### B MP, CBC, MG, LIPID ####[place] [address] [place] [id number] [facility] Potassium [Moles/Vol] 3.7 mmol/L Normal 3.5-5.1 [facility] Comment on above: Order Comment: FASTI NG Y Performed By: #### B MP, CBC, MG, LIPID ####[place] [address] [place] [id number] [facility] Sodium [Moles/Vol] 138 mmol/L Normal 136-145 [facility] Comment on above: Order Comment: FASTI NG Y Performed By: #### B MP, CBC, MG, LIPID ####[place] [address] [place] [id number] [facility] Urea nitrogen [Mass/Vol] 21 mg/dL Normal 7-25 [facility] Comment on above: Order Comment: FASTI NG Y Performed By: #### B MP, CBC, MG, LIPID ####[place] [address] [place] [id number] [facility] Cholesterol [Mass/volume] in Serum or PlasmaOrdered By: Marcos Neves on 02-12-2025 Cholesterol [Mass/Vol] Cholesterol [Mass /volume] in Serum or Plasma Low 140-200 [facility] Comment on above: Chol less than 200 m g/dl low riskChol 201-239 mg/dl borderline riskChol 240 mg/dl and greater high risk Cholesterol in HDL [Mass/vol ume] in Serum or PlasmaOrdered By: Marcos Neves on 02-12-2025 Cholesterol in HDL [Mass/Vol] Serum or plasma high density lipoprotein (HDL) cholesterol measurement [facility] Comment on above: HDL CHOL ATP-III CLA SSIFICATION Cardiovascular RiskHDL > or equal to 60 mg/dL LOWHDL < 40 mg/dL HIGH Cholesterol in LDL Calc [Mas s/Vol]Ordered By: Marcos Neves on 02-12-2025 Cholesterol in LDL [Mass/Vol] Cholesterol in LDL [Mass/volume] in Serum or Plasma by calculation 0-100 [facility] Comment on above: LDL ATP III CLASSIFI CATIONLDL less than 100 mg/dL OptimalLDL 100-129 mg/dL Near or above optimalLDL 130-159 mg/dL Borderline highLDL 160-189 mg/dL HighLDL greater than 189 mg/dL Very high Cholesterol in VLDL Calc [Ma ss/Vol]Ordered By: Marcos Neves on 02-12-2025 Cholesterol in VLDL [Mass/Vol] Cholesterol in VLDL [Mass/volume] in Serum or Plasma by calculation [facility] Complete Blood Count Auto Di ffon 02-12-2025 Basophils (Bld) [#/Vol] 0.0 10*3/uL Normal 0.0-0.2 [facility] Comment on above: Result Comment: PERF ORMED BY: [facility] [address] [address] PATHOLOGIST IT ENGINEER ANA CLARK M.D. Performed By: #### B MP, CBC, MG, LIPID ####[facility] [id number] [place] [address] [facility] Basophils/100 WBC (Bld) 0.3 % Normal . T [facility] Comment on above: Performed By: #### B MP, CBC, MG, LIPID ####[address] Eosinophils (Bld) [#/Vol] 0.3 10*3/uL Normal 0.0-0.45 [facility] Comment on above: Performed By: #### B MP, CBC, MG, LIPID ####[address] Eosinophils/100 WBC (Bld) 1.9 % Normal . [facility] Comment on above: Performed By: #### B MP, CBC, MG, LIPID ####[address] Erythrocyte distribution width (RBC) [Ratio] 14.8 % Normal 11.9-15.3 [facility] Comment on above: Performed By: #### B MP, CBC, MG, LIPID ####[address] Hematocrit (Bld) [Volume fraction] 33.0 % Low 34.0-46.4 [facility] Comment on above: Performed By: #### B MP, CBC, MG, LIPID ####[address] Hemoglobin (Bld) [Mass/Vol] 10.7 g/dL Low 11.8-15.4 [facility] Comment on above: Performed By: #### B MP, CBC, MG, LIPID ####[address] Lymphocytes (Bld) [#/Vol] 3.2 10*3/uL Normal 1.00-4.8 [facility] Comment on above: Performed By: #### B MP, CBC, MG, LIPID ####[address] Lymphocytes/100 WBC (Bld) 24.8 % Normal . [facility] Comment on above: Performed By: #### B MP, CBC, MG, LIPID ####[place] [id number] [place] MCH (RBC) [Entitic mass] 26.8 pg Normal 24.7-34.3 [facility] Comment on above: Performed By: #### B MP, CBC, MG, LIPID ####[address] MCV (RBC) [Entitic vol] 82.7 fL Normal 80-100 [facility] Comment on above: Performed By: #### B MP, CBC, MG, LIPID ####[address] Mean Corpuscular HGB Conc 32.4 g/dL Normal 32.0-35.0 [facility] Comment on above: Performed By: #### B MP, CBC, MG, LIPID ####[address] Monocytes (Bld) [#/Vol] 0.9 10*3/uL High 0.0-0.8 [facility] Comment on above: Performed By: #### B MP, CBC, MG, LIPID ####[address] Monocytes/100 WBC (Bld) 6.7 % Normal . [facility] Comment on above: Performed By: #### B MP, CBC, MG, LIPID ####[address] Neutrophils (Bld) [#/Vol] 8.5 10*3/uL High 1.8-7.7 [facility] Comment on above: Performed By: #### B MP, CBC, MG, LIPID ####[address] Neutrophils/100 WBC (Bld) 66.3 % Normal . [facility] Comment on above: Performed By: #### B MP, CBC, MG, LIPID ####[address] NRBC% 0.1 /100{WBC} Normal 0-0.5 [facility] Comment on above: Performed By: #### B MP, CBC, MG, LIPID ####[address] Platelet mean volume (Bld) [Entitic vol] 9.6 fL Normal 6.3-10.7 [facility] Comment on above: Performed By: #### B MP, CBC, MG, LIPID ####[address] Platelets (Bld) [#/Vol] 194 10*3/uL Normal 150-450 [facility] Comment on above: Performed By: #### B MP, CBC, MG, LIPID ####[address] RBC (Bld) [#/Vol] 3.99 10*6/uL Normal 3.60-5.00 [facility] Comment on above: Performed By: #### B MP, CBC, MG, LIPID ####[address] WBC (Bld) [#/Vol] 12.9 10*3/uL High 3.8-11.6 [facility] Comment on above: Performed By: #### B MP, CBC, MG, LIPID ####[address] ECG 12 lead ECGon 02-12-2025 ECG 12 lead [place] [address] Electrocardiograph Report Signed Patient: Daniela Raymundo MR#: [id number] 2 : 1945 Acct:[id number] Age/Sex: 80 / F ADM Date: 02/11/25 Loc: Room: [address] [place] [address] Type: ADM IN Attending Dr: Acosta Bo MD Ordering Provider: Marcos Neves DO Date of Service: 02/12/25 ECG/ECG 12 lead ECG: Chest Pain AND Tachycardia. Copies to: Test Reason : Blood Pressure : */* mmHG Vent. Rate : 103 BPM Atrial Rate : 326 BPM P-R Int : * ms QRS Dur : 76 ms QT Int : 380 ms P-R-T Axes : 104 22 159 degrees QTcB Int : 497 ms Atrial flutter with variable AV block with premature ventricular or aberrantly conducted complexes Abnormal ECG When compared with ECG of 11-Feb-2025 14:32, Atrial flutter has replaced Atrial fibrillation Nonspecific T wave abnormality, worse in Inferior leads Confirmed by NATTY STOUT MD ([id number]) on 02/13/2025 1:36:37 PM Referred By: Electronically Signed By: NATTY STOUT MD Transcribed By: MUS Signed By Natty Stout MD 0 02/13/25 1336 Normal [facility] ECG 12 lead [place] [address] Electrocardiograph Report Signed Patient: Daniela Raymundo MR#: [id number] 2 : 1945 Acct:[id number] Age/Sex: 80 / F ADM Date: 02/11/25 Loc: Room: [address] [place] [address] Type: ADM IN Attending Dr: Acosta Bo MD Ordering Provider: Monserrat Dutton MD Date of Service: 02/12/25 ECG/ECG 12 lead ECG: elevated troponin Copies to: Test Reason : Blood Pressure : */* mmHG Vent. Rate : 88 BPM Atrial Rate : * BPM P-R Int : * ms QRS Dur : 74 ms QT Int : 380 ms P-R-T Axes : * 37 211 degrees QTcB Int : 459 ms Atrial fibrillation Abnormal ECG No significant change was found Confirmed by NATTY STOUT MD ([id number]) on 02/13/2025 1:36:20 PM Referred By: Electronically Signed By: NATTY STOUT MD Transcribed By: MUS Signed By Natty Stout MD 0 02/13/25 1336 Normal [facility] Glucose Glucometer (BldC) [M ass/Vol]Ordered By: Marcos Neves on 02-12-2025 Glucose [Mass/Vol] Capillary blood gluc ose measurement by glucometer (mass/volume) [facility] Comment on above: Random Glucose Refer ence Range is dependent on time and content of last meal. Glucose of more than 200 mg/dL in a nonstressed, ambulatory subject supports the diagnosis of Diabetes Mellitus. Glucose Poct Glucometerson 0 02-12-2025 Glucose [Mass/Vol] 144 mg/dL Normal [facility] Comment on above: Result Comment: [place] om Glucose Reference Range is dependent on time and content of last meal. Glucose of more than 200 mg/dL in a nonstressed, ambulatory subject supports the diagnosis of Diabetes Mellitus. PERFORMED BY: [facility] [address] [place] [address] PATHOLOGIST IT ENGINEER ANA CLARK M.D. Performed By: #### G LULS #### Point of Care testing , Glucose [Mass/Vol] 175 mg/dL Normal [facility] Comment on above: Result Comment: [place] om Glucose Reference Range is dependent on time and content of last meal. Glucose of more than 200 mg/dL in a nonstressed, ambulatory subject supports the diagnosis of Diabetes Mellitus. PERFORMED BY: [facility] [address] [place] [address] PATHOLOGIST IT ENGINEER ANA CLARK M.D. Performed By: #### G LULS ####Point of Care testing, Lipid Panelon 02-12-2025 Cholesterol [Mass/Vol] 99 mg/dL Low 140-200 [facility] Comment on above: Order Comment: FASTI NG Y Result Comment: Chol less than 200 mg/dl low risk Chol 201-239 mg/dl borderline risk Chol 240 mg/dl and greater high risk Performed By: #### B MP, CBC, MG, LIPID ####[facility] [id number] [place] [id number] [facility] Cholesterol in HDL [Mass/Vol] 42 mg/dL Normal 23-92 [facility] Comment on above: Order Comment: FASTI NG Y Result Comment: HDL CHOL ATP-III CLASSIFICATION Cardiovascular Risk HDL > or equal to 60 mg/dL LOW HDL < 40 mg/dL HIGH Performed By: #### B MP, CBC, MG, LIPID ####[place] [id number] [address] Cholesterol.total/Skylar sterol in HDL [Mass ratio] 2.4 {ratio} Normal <5.0 [facility] Comment on above: Order Comment: YAKOV Uriostegui Result Comment: PERF ORMED BY: [facility] [address] [place] [address] PATHOLOGIST IT ENGINEER ANA CLARK M.D. Performed By: #### B MP, CBC, MG, LIPID ####[place] [address] [address] LDL Cholesterol,Calculated 39 mg/dL Normal 0-100 [facility] Comment on above: Order Comment: YAKOV Uriostegui Result Comment: LDL ATP III CLASSIFICATION LDL less than 100 mg/dL Optimal LDL 100-129 mg/dL Near or above optimal LDL 130-159 mg/dL Borderline high LDL 160-189 mg/dL High LDL greater than 189 mg/dL Very high Performed By: #### B MP, CBC, MG, LIPID ####[place] [address] [address] Triglyceride w/Reflex 92 mg/dL Normal 0-149 [facility] Comment on above: Order Comment: YAKOV Uriostegui Result Comment: TRIG ATP III CLASSIFICATION TRIG less than 150 mg/dL Normal TRIG 150-199 mg/dL Borderline high TRIG 200-500 mg/dL High TRIG greater than 500 mg/dL Very high Standard traceable to the Center for Disease Conrtrol and Prevention (CDC) test method. Performed By: #### B MP, CBC, MG, LIPID ####[place] [address] [address] VLDL CHOLESTEROL 18 mg/dL Normal [facility] Comment on above: Order Comment: FASTSusan FERRO Y Performed By: #### B MP, CBC, MG, LIPID ####[place] [address] [place] [id number] [facility] Magnesiumon 02-12-2025 Magnesium [Mass/Vol] 2.1 mg/dL Normal 1.9-2.7 [facility] Comment on above: Order Comment: FASTI NG Y Performed By: #### B MP, CBC, MG, LIPID ####[facility] [id number] [place] [address] [place] Partial Thromboplastin Timeo n 02-12-2025 aPTT Coag (Bld) [Time] 58.8 s High 25.1-36.5 [facility] Comment on above: Result Comment: A he matocrit value greater than 55% may lead to inaccurate results in coagulation testing. Patients having hematocrit values >55% require a special collection tube for coagulation studies. Please contact the laboratory at [phone] for redraw instructions. PERFORMED BY: [facility] [address] [facility] [id number] PATHOLOGIST IT ENGINEER ANA CLARK M.D. Performed By: #### G LULS #### Point of Care testing , aPTT Coag (Bld) [Time] 57.6 s High 25.1-36.5 [facility] Comment on above: Result Comment: A he matocrit value greater than 55% may lead to inaccurate results in coagulation testing. Patients having hematocrit values >55% require a special collection tube for coagulation studies. Please contact the laboratory at [phone] for redraw instructions. PERFORMED BY: [facility] [address] [facility] [id number] PATHOLOGIST IT ENGINEER ANA CLARK M.D. Performed By: #### P TT ####[place] [address] [place] [address] [facility] aPTT Coag (Bld) [Time] 42.3 s High 25.1-36.5 [facility] Comment on above: Order Comment: Comme nt timed for heparin gtt Result Comment: A he matocrit value greater than 55% may lead to inaccurate results in coagulation testing. Patients having hematocrit values >55% require a special collection tube for coagulation studies. Please contact the laboratory at [phone] for redraw instructions. PERFORMED BY: [facility] [address] [facility] [place] [id number] PATHOLOGIST IT ENGINEER ANA CLARK M.D. Performed By: #### P TT ####[facility] [id number] [place] [address] [facility] Serum or plasma total choles terol/high density lipoprotein (HDL) cholesterol mass ratOrdered By: Marcos Neves on 02-12-2025 Cholesterol.total/Skylar sterol in HDL [Mass ratio] Serum or plasma total cholesterol/high density lipoprotein (HDL) cholesterol mass rat <5.0 [facility] Triglyceride [Mass/volume] i n Serum or PlasmaOrdered By: Marcos Neves on 02-12-2025 Triglyceride [Mass/Vol] Triglyceride [Ma ss/volume] in Serum or Plasma 0-149 [facility] Comment on above: TRIG ATP III CLASSIF ICATIONTRIG less than 150 mg/dL NormalTRIG 150-199 mg/dL Borderline highTRIG 200-500 mg/dL High TRIG greater than 500 mg/dL Very highStandard traceable to the Center for Disease Conrtrol and Prevention (CDC) test method. Troponin I High Sensitivityo n 02-12-2025 Troponin I High Sensitivity 1779 Off scale high 0-15 [facility] Comment on above: Result Comment: Crit ical Result : Called to and read back by: KEN TAI at: 02/12/2025 05:12:59 by:[id number] The Troponin units of report have been changed to meet the Chest Pain Accreditation requirement, element EC5.M1l2. Troponin units are changed from pg/ml to ng/L. Also, the decimal is removed and results are in whole numbers. PERFORMED BY: [facility] [address] [place] [address] PATHOLOGIST IT ENGINEER ANA CLARK M.D. Performed By: #### H S TROP ####[place] [address] [place] [address] [facility] Alanine aminotransferase [En zymatic activity/volume] in Serum or PlasmaOrdered By: Erwin Childers on 02-11-2025 ALT [Catalytic activity/Vol] Alanine aminotransferase [Enzymatic activity/volume] in Serum or Plasma 7-52 [facility] Albumin [Mass/volume] in Ser um or Plasma by Bromocresol green (BCG) dye binding methoOrdered By: Erwin Childers on 02-11-2025 Albumin BCG dye [Mass/Vol] Albumin [Mass/volume] in Serum or Plasma by Bromocresol green (BCG) dye binding metho 3.5-5.7 [facility] Alkaline phosphatase [Enzyma tic activity/volume] in Serum or PlasmaOrdered By: Erwin Childers on 02-11-2025 ALP [Catalytic activity/Vol] Alkaline phosphatase [Enzymatic activity/volume] in Serum or Plasma 34-104 [facility] Anti-Xa UF Heparinon 025 Anti-Xa UF Heparin >2.00 Off scale high 0.30-0.70 [facility] Comment on above: Result Comment: Resu lts called at 2013 on 02/11/25 Use the aPTT protocol when triglycerides are > 800 mg/dL, total bilirubin is > 20 mg/dL and/or patient has received a DOAC, Fondaparinux or LMWH within 72 hours AND baseline anti-Xa level is > 0.7 units/mL PERFORMED BY: [place] [id number] PATHOLOGIST IT ENGINEER ANA CLARK M.D. Performed By: #### P TT, UFHEP ####[facility] [id number] Anti-Xa UF Heparin 1.74 [IU]/mL Off scale high 0.30-0.70 [facility] Comment on above: Result Comment: Crit ical value result called at 1406 on 02/11/25 Use the aPTT protocol when triglycerides are > 800 mg/dL, total bilirubin is > 20 mg/dL and/or patient has received a DOAC, Fondaparinux or LMWH within 72 hours AND baseline anti-Xa level is > 0.7 units/mL PERFORMED BY: [place] [id number] PATHOLOGIST IT ENGINEER ANA CLARK M.D. Performed By: #### G LULS #### Point of Care testing , Aspartate aminotransferase [ Enzymatic activity/volume] in Serum or PlasmaOrdered By: Erwin Childers on 02-11-2025 AST [Catalytic activity/Vol] Aspartate aminotransferase [Enzymatic activity/volume] in Serum or Plasma 13-39 [facility] B-Type Natriuretic Peptideon 02-11-2025 Natriuretic peptide B (Bld) [Mass/Vol] 579.0 pg/mL High 5-100 [facility] Comment on above: Result Comment: PERF ORMED BY: [facility] [address] [place] [address] PATHOLOGIST IT ENGINEER ANA CLARK M.D. Performed By: #### G BRANDI #### Point of Care testing , Basic Metabolic Panelon 01-26 Anion gap [Moles/Vol] 9.9 mmol/L Normal 6.0-15.0 [facility] Comment on above: Performed By: #### B FRONT END SOFTWARE ENGINEER, LIPASE, PTT, UFHEP, CK, CBC, HEPATIC, BMP, PT, HS TROP ####[place] [id number] [address] Calcium [Mass/Vol] 9.7 mg/dL Normal 8.6-10.3 [facility] Comment on above: Performed By: #### B FRONT END SOFTWARE ENGINEER, LIPASE, PTT, UFHEP, CK, CBC, HEPATIC, BMP, PT, HS TROP ####[address] Chloride [Moles/Vol] 104 mmol/L Normal 98-107 [facility] Comment on above: Performed By: #### B FRONT END SOFTWARE ENGINEER, LIPASE, PTT, UFHEP, CK, CBC, HEPATIC, BMP, PT, HS TROP ####[address] CO2 [Moles/Vol] 27.1 mmol/L Normal 21.0-31.0 [facility] Comment on above: Performed By: #### B FRONT END SOFTWARE ENGINEER, LIPASE, PTT, UFHEP, CK, CBC, HEPATIC, BMP, PT, HS TROP ####[address] Creatinine [Mass/Vol] 1.50 mg/dL High 0.60-1.20 [facility] Comment on above: Performed By: #### B FRONT END SOFTWARE ENGINEER, LIPASE, PTT, UFHEP, CK, CBC, HEPATIC, BMP, PT, HS TROP ####[place] [address] [address] Creatinine Clr Calc Pharmacy 26.38 Normal [facility] Comment on above: Performed By: #### B FRONT END SOFTWARE ENGINEER, LIPASE, PTT, UFHEP, CK, CBC, HEPATIC, BMP, PT, HS TROP ####[address] Estimated GFR 34.578 mL/Min Normal [facility] Comment on above: Performed By: #### B FRONT END SOFTWARE ENGINEER, LIPASE, PTT, UFHEP, CK, CBC, HEPATIC, BMP, PT, HS TROP ####[address] Glucose [Mass/Vol] 163 mg/dL High 70-100 [facility] Comment on above: Result Comment: [facility] Glucose Reference Range is dependent on time and content of last meal. Glucose of more than 200 mg/dL in a nonstressed, ambulatory subject supports the diagnosis of Diabetes Mellitus. ADA recommended reference range Performed By: #### B FRONT END SOFTWARE ENGINEER, LIPASE, PTT, UFHEP, CK, CBC, HEPATIC, BMP, PT, HS TROP ####[address] Potassium [Moles/Vol] 4.0 mmol/L Normal 3.5-5.1 [facility] Comment on above: Performed By: #### B FRONT END SOFTWARE ENGINEER, LIPASE, PTT, UFHEP, CK, CBC, HEPATIC, BMP, PT, HS TROP ####[address] Sodium [Moles/Vol] 137 mmol/L Normal 136-145 [facility] Comment on above: Performed By: #### B FRONT END SOFTWARE ENGINEER, LIPASE, PTT, UFHEP, CK, CBC, HEPATIC, BMP, PT, HS TROP ####[address] Urea nitrogen [Mass/Vol] 26 mg/dL High 7-25 [facility] Comment on above: Performed By: #### B FRONT END SOFTWARE ENGINEER, LIPASE, PTT, UFHEP, CK, CBC, HEPATIC, BMP, PT, HS TROP ####[address] Bilirubin.direct [Mass/volum e] in Serum or PlasmaOrdered By: Erwin Childers on 02-11-2025 Bilirubin.direct [Mass/Vol] Bilirubin.direct [Mass/volume] in Serum or Plasma Low 0.03-0.18 [facility] Comment on above: If the DBIL is less than 0.1, IBIL is not able to becalculated. Bilirubin.total [Mass/volume ] in Serum or PlasmaOrdered By: Erwin Childers on 02-11-2025 Bilirubin [Mass/Vol] Bilirubin.total [Mass/volume] in Serum or Plasma 0.3-1.0 [facility] Complete Blood Count Auto Di ffon 02-11-2025 Basophils (Bld) [#/Vol] 0.1 10*3/uL Normal 0.0-0.2 [facility] Comment on above: Result Comment: PERF ORMED BY: [facility] [address] [facility] [address] PATHOLOGIST IT ENGINEER ANA CLARK M.D. Performed By: #### B FRONT END SOFTWARE ENGINEER, LIPASE, PTT, UFHEP, CK, CBC, HEPATIC, BMP, PT, HS TROP ####[address] Basophils/100 WBC (Bld) 0.6 % Normal . Stephanie goel [facility] Comment on above: Performed By: #### B FRONT END SOFTWARE ENGINEER, LIPASE, PTT, UFHEP, CK, CBC, HEPATIC, BMP, PT, HS TROP ####[address] Eosinophils (Bld) [#/Vol] 0.2 10*3/uL Normal 0.0-0.45 [facility] Comment on above: Performed By: #### B FRONT END SOFTWARE ENGINEER, LIPASE, PTT, UFHEP, CK, CBC, HEPATIC, BMP, PT, HS TROP ####[place] [address] [place] Eosinophils/100 WBC (Bld) 1.6 % Normal . [facility] Comment on above: Performed By: #### B FRONT END SOFTWARE ENGINEER, LIPASE, PTT, UFHEP, CK, CBC, HEPATIC, BMP, PT, HS TROP ####[address] Erythrocyte distribution width (RBC) [Ratio] 14.9 % Normal 11.9-15.3 [facility] Comment on above: Performed By: #### B FRONT END SOFTWARE ENGINEER, LIPASE, PTT, UFHEP, CK, CBC, HEPATIC, BMP, PT, HS TROP ####[address] Hematocrit (Bld) [Volume fraction] 36.1 % Normal 34.0-46.4 [facility] Comment on above: Performed By: #### B FRONT END SOFTWARE ENGINEER, LIPASE, PTT, UFHEP, CK, CBC, HEPATIC, BMP, PT, HS TROP ####[address] Hemoglobin (Bld) [Mass/Vol] 11.5 g/dL Low 11.8-15.4 [facility] Comment on above: Performed By: #### B FRONT END SOFTWARE ENGINEER, LIPASE, PTT, UFHEP, CK, CBC, HEPATIC, BMP, PT, HS TROP ####[address] Lymphocytes (Bld) [#/Vol] 3.3 10*3/uL Normal 1.00-4.8 [facility] Comment on above: Performed By: #### B FRONT END SOFTWARE ENGINEER, LIPASE, PTT, UFHEP, CK, CBC, HEPATIC, BMP, PT, HS TROP ####[address] Lymphocytes/100 WBC (Bld) 26.1 % Normal . [facility] Comment on above: Performed By: #### B FRONT END SOFTWARE ENGINEER, LIPASE, PTT, UFHEP, CK, CBC, HEPATIC, BMP, PT, HS TROP ####[address] MCH (RBC) [Entitic mass] 26.6 pg Normal 24.7-34.3 [facility] Comment on above: Performed By: #### B FRONT END SOFTWARE ENGINEER, LIPASE, PTT, UFHEP, CK, CBC, HEPATIC, BMP, PT, HS TROP ####[address] MCV (RBC) [Entitic vol] 83.4 fL Normal 80-100 [facility] Comment on above: Performed By: #### B FRONT END SOFTWARE ENGINEER, LIPASE, PTT, UFHEP, CK, CBC, HEPATIC, BMP, PT, HS TROP ####[address] Mean Corpuscular HGB Conc 31.9 g/dL Low 32.0-35.0 [facility] Comment on above: Performed By: #### B FRONT END SOFTWARE ENGINEER, LIPASE, PTT, UFHEP, CK, CBC, HEPATIC, BMP, PT, HS TROP ####[address] Monocytes (Bld) [#/Vol] 0.7 10*3/uL Normal 0.0-0.8 [facility] Comment on above: Performed By: #### B FRONT END SOFTWARE ENGINEER, LIPASE, PTT, UFHEP, CK, CBC, HEPATIC, BMP, PT, HS TROP ####[address] Monocytes/100 WBC (Bld) 16.94 % Normal 0.00-20.00 [facility] Comment on above: Performed By: #### B FRONT END SOFTWARE ENGINEER, LIPASE, PTT, UFHEP, CK, CBC, HEPATIC, BMP, PT, HS TROP ####[address] Monocytes/100 WBC (Bld) 5.5 % Normal . [facility] Comment on above: Performed By: #### B FRONT END SOFTWARE ENGINEER, LIPASE, PTT, UFHEP, CK, CBC, HEPATIC, BMP, PT, HS TROP ####[address] Neutrophils (Bld) [#/Vol] 8.3 10*3/uL High 1.8-7.7 [facility] Comment on above: Performed By: #### B FRONT END SOFTWARE ENGINEER, LIPASE, PTT, UFHEP, CK, CBC, HEPATIC, BMP, PT, HS TROP ####[address] Neutrophils/100 WBC (Bld) 66.2 % Normal . [facility] Comment on above: Performed By: #### B FRONT END SOFTWARE ENGINEER, LIPASE, PTT, UFHEP, CK, CBC, HEPATIC, BMP, PT, HS TROP ####[address] NRBC% 0.1 /100{WBC} Normal 0-0.5 [facility] Comment on above: Performed By: #### B FRONT END SOFTWARE ENGINEER, LIPASE, PTT, UFHEP, CK, CBC, HEPATIC, BMP, PT, HS TROP ####[address] Platelet mean volume (Bld) [Entitic vol] 9.4 fL Normal 6.3-10.7 [facility] Comment on above: Performed By: #### B FRONT END SOFTWARE ENGINEER, LIPASE, PTT, UFHEP, CK, CBC, HEPATIC, BMP, PT, HS TROP ####[address] Platelets (Bld) [#/Vol] 238 10*3/uL Normal 150-450 [facility] Comment on above: Performed By: #### B FRONT END SOFTWARE ENGINEER, LIPASE, PTT, UFHEP, CK, CBC, HEPATIC, BMP, PT, HS TROP ####[address] RBC (Bld) [#/Vol] 4.33 10*6/uL Normal 3.60-5.00 [facility] Comment on above: Performed By: #### B FRONT END SOFTWARE ENGINEER, LIPASE, PTT, UFHEP, CK, CBC, HEPATIC, BMP, PT, HS TROP ####[address] WBC (Bld) [#/Vol] 12.5 10*3/uL High 3.8-11.6 [facility] Comment on above: Performed By: #### B FRONT END SOFTWARE ENGINEER, LIPASE, PTT, UFHEP, CK, CBC, HEPATIC, BMP, PT, HS TROP ####[facility] [id number] Creatine Kinaseon 02-11-2025 CK [Catalytic activity/Vol] 49 U/L Normal [facility] Comment on above: Performed By: #### G LULS #### Point of Care testing , Creatine kinase [Enzymatic a ctivity/volume] in Serum or PlasmaOrdered By: Erwin Childers on 02-11-2025 CK [Catalytic activity/Vol] Creatine kinase [Enzymatic activity/volume] in Serum or Plasma [facility] ECG 12 lead ECGon 02-11-2025 ECG 12 lead [place] [address] Electrocardiograph Report Signed Patient: Daniela Raymundo MR#: [id number] 2 : 1945 Acct:[id number] Age/Sex: 80 / F ADM Date: 02/11/25 Loc: ER Room: Type: [facility] ER Attending Dr: Ordering Provider: Erwin Childers DO Date of Service: 02/11/25 ECG/ECG 12 lead ECG: Chest Pain Copies to: Test Reason : Blood Pressure : 108/72 mmHG Vent. Rate : 91 BPM Atrial Rate : 113 BPM P-R Int : * ms QRS Dur : 82 ms QT Int : 370 ms P-R-T Axes : * 20 158 degrees QTcB Int : 455 ms Atrial fibrillation Confirmed by Erwin CHILDERS DO ([id number]) on 02/11/2025 3:46:45 PM Referred By: Electronically Signed By: Erwin CHILDERS DO Transcribed By: MUS Signed By Erwin Childers DO 0 02/11/25 1546 Normal [facility] ECG 12 lead ECG [place] [id number] Electrocardiograph Report Signed Patient: Daniela Raymundo MR#: [id number] 2 : 1945 Acct:[id number] Age/Sex: 80 / F ADM Date: 02/11/25 Loc: ER Room: Type: REG ER Attending Dr: Ordering Provider: Erwin Childers DO Date of Service: 02/11/25 ECG/ECG 12 lead ECG: Chest Pain Copies to: Test Reason : Blood Pressure : 147/78 mmHG Vent. Rate : 149 BPM Atrial Rate : 330 BPM P-R Int : * ms QRS Dur : 80 ms QT Int : 300 ms P-R-T Axes : * 17 174 degrees QTcB Int : 472 ms Atrial flutter with variable AV block Anterior/inferior ST depression Confirmed by Erwin CHILDERS DO ([id number]) on 02/11/2025 3:14:03 PM Referred By: Electronically Signed By: Erwin CHILDERS DO Transcribed By: MUS Signed By Erwin Childers DO 0 02/11/25 1514 Normal [facility] Globulin Calc (S) [Mass/Vol] Ordered By: Erwin Childers on 02-11-2025 Globulin (S) [Mass/Vol] Serum globulin m easurement by calculation (mass/volume) [facility] Heparin anti-Xa unfractionat edOrdered By: Erwin Childers on 02-11-2025 Heparin unfractionated Chromogenic method Qn (PPP) Heparin anti-Xa unfractionated Critically high 0.30-0.70 [facility] Comment on above: Results calledat 201 3 on 02/11/25 Use the aPTT protocol when triglycerides are > 800 mg/dL,total bilirubin is > 20 mg/dL and/or patient has received aDOAC, Fondaparinux or LMWH within 72 hours AND baselineanti-Xa level is > 0.7 units/mL Hepatic Panelon 02-11-2025 Albumin [Mass/Vol] 4.1 g/dL Normal 3.5-5.7 [facility] Comment on above: Performed By: #### B FRONT END SOFTWARE ENGINEER, LIPASE, PTT, UFHEP, CK, CBC, HEPATIC, BMP, PT, HS TROP ####[facility] [id number] Albumin/Globulin [Mass ratio] 1.4 {ratio} Normal [facility] Comment on above: Performed By: #### B FRONT END SOFTWARE ENGINEER, LIPASE, PTT, UFHEP, CK, CBC, HEPATIC, BMP, PT, HS TROP ####[address] ALP [Catalytic activity/Vol] 66 U/L Normal 34-104 [facility] Comment on above: Performed By: #### B FRONT END SOFTWARE ENGINEER, LIPASE, PTT, UFHEP, CK, CBC, HEPATIC, BMP, PT, HS TROP ####[address] ALT [Catalytic activity/Vol] 11 U/L Normal 7-52 [facility] Comment on above: Performed By: #### B FRONT END SOFTWARE ENGINEER, LIPASE, PTT, UFHEP, CK, CBC, HEPATIC, BMP, PT, HS TROP ####[address] AST [Catalytic activity/Vol] 16 U/L Normal 13-39 [facility] Comment on above: Performed By: #### B FRONT END SOFTWARE ENGINEER, LIPASE, PTT, UFHEP, CK, CBC, HEPATIC, BMP, PT, HS TROP ####[address] Bilirubin [Mass/Vol] 0.4 mg/dL Normal 0.3-1.0 [facility] Comment on above: Performed By: #### B FRONT END SOFTWARE ENGINEER, LIPASE, PTT, UFHEP, CK, CBC, HEPATIC, BMP, PT, HS TROP ####[address] Bilirubin,Indirect 0.4 mg/dL Normal [facility] Comment on above: Performed By: #### B FRONT END SOFTWARE ENGINEER, LIPASE, PTT, UFHEP, CK, CBC, HEPATIC, BMP, PT, HS TROP ####[address] Bilirubin.indirect [Mass/Vol] 0.00 mg/dL Low 0.03-0.18 [facility] Comment on above: Result Comment: If t he DBIL is less than 0.1, IBIL is not able to be calculated. Performed By: #### B FRONT END SOFTWARE ENGINEER, LIPASE, PTT, UFHEP, CK, CBC, HEPATIC, BMP, PT, HS TROP ####[address] Globulin (S) [Mass/Vol] 3.0 g/dL Normal T [facility] Comment on above: Performed By: #### B FRONT END SOFTWARE ENGINEER, LIPASE, PTT, UFHEP, CK, CBC, HEPATIC, BMP, PT, HS TROP ####[facility] [place] [id number] [facility] Protein [Mass/Vol] 7.1 g/dL Normal 6.4-8.9 [facility] Comment on above: Performed By: #### B FRONT END SOFTWARE ENGINEER, LIPASE, PTT, UFHEP, CK, CBC, HEPATIC, BMP, PT, HS TROP ####[facility] [place] [id number] [facility] INR in Platelet poor plasma by Coagulation assayOrdered By: Erwin Childers on 02-11-2025 INR Coag (PPP) [Relative time] INR in Platelet poor plasma by Coagulation assay [facility] Comment on above: INR Therapeutic Rang e A) Pre- and Peroperative OAT started two weeks before surgery. NOT HIP SURGERY: 1.5 - 2.5 HIP SURGERY: 2 - 3B) Primary and secondary prevention of venous THROMBOSIS: 2 - 3C) Active venous thrombosis, pulmonary embolismand prevention of recurrent venous thrombosis: 2 - 3D) Prevention of arterial thromboembolismincluding patients with mechanical heart valves: 3 - 4.5 Lipaseon 02-11-2025 Lipase [Catalytic activity/Vol] 15.0 U/L Normal 11.0-82.0 [facility] Comment on above: Result Comment: PERF ORMED BY: [facility] [address] [place] [id number] PATHOLOGIST IT ENGINEER ANA CLARK M.D. Performed By: #### G LULS #### Point of Care testing , Lipase [Enzymatic activity/v olume] in Serum or PlasmaOrdered By: Erwin Childers on 02-11-2025 Lipase [Catalytic activity/Vol] Lipase [Enzymatic activity/volume] in Serum or Plasma 11.0-82.0 [facility] Monocyte distribution width [Entitic volume] in Blood by AutomatedOrdered By: Erwin Childers on 02-11-2025 Monocyte distribution width Auto (Bld) [Entitic vol] Monocyte distribution width [Entitic volume] in Blood by Automated 0.00-20.00 [facility] Natriuretic peptide B [Mass/ Vol]Ordered By: Erwin Childers on 02-11-2025 Natriuretic peptide B (Bld) [Mass/Vol] BNP ser/plas High 5-100 [facility] Partial Thromboplastin Timeo n 02-11-2025 aPTT Coag (Bld) [Time] 126.7 s Off scale high 25.1-36.5 [facility] Comment on above: Result Comment: Resu lts called at 2012 on 02/11/25 A hematocrit value greater than 55% may lead to inaccurate results in coagulation testing. Patients having hematocrit values >55% require a special collection tube for coagulation studies. Please contact the laboratory at [phone] for redraw instructions. Performed By: #### P TT, UFHEP ####[facility] [address] [place] [address] [facility] aPTT Coag (Bld) [Time] 33.0 s Normal 25.1-36.5 [facility] Comment on above: Result Comment: A matocrit value greater than 55% may lead to inaccurate results in coagulation testing. Patients having hematocrit values >55% require a special collection tube for coagulation studies. Please contact the laboratory at [phone] for redraw instructions. Performed By: #### G LULS #### Point of Care testing , Protein [Mass/volume] in Ser um or PlasmaOrdered By: Erwin Childers on 02-11-2025 Protein [Mass/Vol] Protein [Mass/volume ] in Serum or Plasma 6.4-8.9 [facility] Prothrombin Time INRon 02-11 INR Coag (PPP) [Relative time] 1.3 {INR} Normal [facility] Comment on above: Result Comment: INR Therapeutic Range A) Pre- and Peroperative OAT started two weeks before surgery. NOT HIP SURGERY: 1.5 - 2.5 HIP SURGERY: 2 - 3 B) Primary and secondary prevention of venous THROMBOSIS: 2 - 3 C) Active venous thrombosis, pulmonary embolism and prevention of recurrent venous thrombosis: 2 - 3 D) Prevention of arterial thromboembolism including patients with mechanical heart valves: 3 - 4.5 Performed By: #### G LULS #### Point of Care testing , PT Coag (PPP) [Time] 15.0 s High 9.0-12.9 [facility] Comment on above: Result Comment: A he matocrit value greater than 55% may lead to inaccurate results in coagulation testing. Patients having hematocrit values >55% require a special collection tube for coagulation studies. Please contact the laboratory at [phone] for redraw instructions. Performed By: #### G LULS #### Point of Care testing , Prothrombin time (PT)Ordered By: Erwin Childers on 02-11-2025 PT Coag (PPP) [Time] Prothrombin time (PT) High 9.0- 12.9 [facility] Comment on above: A hematocrit value g reater than 55% may lead to inaccurate results in coagulation testing. Patients having hematocrit values >55% require a special collection tube for coagulation studies. Please contact the laboratory at [phone] for redraw instructions. Serum or plasma albumin/glob ulin mass ratioOrdered By: Erwin Childers on 02-11-2025 Albumin/Globulin [Mass ratio] Serum or plasma albumin/globulin mass ratio [facility] Serum or plasma non-glucuron idated bilirubin measurement (mass/volume)Ordered By: Erwin Childers on 02-11-2025 Bilirubin.indirect [Mass/Vol] Serum or plasma non-glucuronidated bilirubin measurement (mass/volume) [facility] Troponin I High Sensitivityo n 02-11-2025 Troponin I High Sensitivity 268 Off scale high 0-15 [facility] Comment on above: Order Comment: GOING TO 3T33 Result Comment: Crit ical Result : Called to and read back by: ALMAS HI at: 02/11/2025 20:50:42 by:AMBAR The Troponin units of report have been changed to meet the Chest Pain Accreditation requirement, element EC5.M1l2. Troponin units are changed from pg/ml to ng/L. Also, the decimal is removed and results are in whole numbers. PERFORMED BY: [facility] [address] [place] [address] PATHOLOGIST IT ENGINEER ANA CLARK M.D. Performed By: #### H S TROP ####[place] [id number] [place] [address] [facility] Troponin I High Sensitivity 208 Off scale high 0-15 [facility] Comment on above: Order Comment: GOING TO 3T33 Result Comment: Crit ical Result : Called to and read back by: TASHA MCCANN at: 02/11/2025 18:53:04 by:AMBAR The Troponin units of report have been changed to meet the Chest Pain Accreditation requirement, element EC5.M1l2. Troponin units are changed from pg/ml to ng/L. Also, the decimal is removed and results are in whole numbers. PERFORMED BY: [place] [id number] PATHOLOGIST IT ENGINEER ANA CLARK M.D. Performed By: #### H S TROP ####[place] [id number] [facility] Troponin I High Sensitivity 76 Off scale high 0-15 [facility] Comment on above: Result Comment: Crit ical Result : Called to and read back by: FELECIA MATTHEWS at: 02/11/2025 14:30:19 by:SHRAVAN The Troponin units of report have been changed to meet the Chest Pain Accreditation requirement, element EC5.M1l2. Troponin units are changed from pg/ml to ng/L. Also, the decimal is removed and results are in whole numbers. PERFORMED BY: [place] [id number] PATHOLOGIST IT ENGINEER ANA CLARK M.D. Performed By: #### G LULS #### Point of Care testing , X-ray reportOrdered By: Sharath Dejesus on 02-11-2025 Study report [place] [address] XRay Report Signed Patient: Daniela Raymundo MR#: [id number] : 1945 Acct:[id number] Age/Sex: 80 / F ADM Date: 5 Loc: ER Room: Type: [facility] ER Attending Dr: Copies to: Erwin Childers DO~ Ordering Provider: Erwin Childers DO Date of Service: 02/11/25 XR/XR chest 1V portable: Chest Pain Plain film chest Single view HISTORY: Chest pain COMPARISON: 12/05/2024 FINDINGS: SUPPORT DEVICES: None POSTSURGICAL CHANGES: CABG HEART: Within normal limits PULMONARY PRIETO: Within normal limits MEDIASTINUM: Hiatal hernia LUNGS AND PLEURA: No acute lung process, pleural effusion or pneumothorax identified. Minor interstitial changes BONY STRUCTURES: Intact ADDITIONAL FINDINGS None XR/XR chest 1V portable IMPRESSION: No acute process. Impression dictated by: Laith Dejesus M.D. 02/11/2025 2:02 PM Dictation Location: RADIO-PC-20 Transcribed By: NATALY 02/11/25 1402 Dictated By: Laith Dejesus DO 02/11/25 1353 Signed By: 02/11/25 1402 [facility] XR chest 1V portableon 02-11 XR chest 1V portable [facility] [place] [address] [place] [address] XRay Report Signed Patient: Daniela Raymundo MR#: [id number] 2 : 1945 Acct:[id number] Age/Sex: 80 / F ADM Date: 02/11/25 Loc: ER Room: Type: [facility] ER Attending Dr: Copies to: Erwin Childers DO Ordering Provider: Erwin Childers DO Date of Service: 02/11/25 XR/XR chest 1V portable: Chest Pain Plain film chest Single view HISTORY: Chest pain COMPARISON: 12/05/2024 FINDINGS: SUPPORT DEVICES: None POSTSURGICAL CHANGES: CABG HEART: Within normal limits PULMONARY PRIETO: Within normal limits MEDIASTINUM: Hiatal hernia LUNGS AND PLEURA: No acute lung process, pleural effusion or pneumothorax identified. Minor interstitial changes BONY STRUCTURES: Intact ADDITIONAL FINDINGS None XR/XR chest 1V portable IMPRESSION: No acute process. Impression dictated by: Laith Dejesus M.D. 02/11/2025 2:02 PM Dictation Location: RADIO-PC-20 Transcribed By: NATALY 02/11/25 1402 Dictated By: Laith Dejesus DO 02/11/25 135 Signed By: 02/11/25 1402 Normal [facility] NURSING PROGon 02-09-2025 NURSING PROG HNO ID: [id number] Author: FELIPE SANDS RN Service: ? Author Type: Registered Nurse Type: Nursing Progress Note Filed: 02/09/2025 08:56 Note Text: Attempted to reach the patient at the contact number that they provided [phone] (home) . Unable to speak with patient so without identifying the patient the following information was left on their voice mail: Date of procedure, location and report time A message was left informing the patient/patient insurance claim representative they must have a responsible adult accompany them to their procedure; and remain in the endoscopy area until they are discharged. Failure to have a responsible adult accompany the patient to their procedure appointment prevents the use of sedation or anesthesia for their procedure; and can result in cancellation of the procedure NPO instructions were reviewed. Instructions to contact their primary care provider regarding their medications and which medications to stop in preparation for their procedure Instructions to completely read and follow the written instructions that they recieved regarding their procedure. Number to call with questions or concerns [phone] Number to call to cancel their procedure [phone] Felipe Sands RN [facility] Ambulatory Visit Summaryon 0 02-08-2025 Ambulatory Visit Summary Ambulatory Visit Summary MIGDALIADANIELA ROSE Sebastian :1945 Visit Date:02/02/2025 Ambulatory Visit Instructions Your Diagnosis Annual visit for general adult medical examination without abnormal findings Type 2 diabetes mellitus with hyperlipidemia Essential hypertension HLD (hyperlipidemia) Stage 3b chronic kidney disease (CKD), Chronic kidney disease, stage 3b Type 2 diabetes mellitus with stage 3b chronic kidney disease Chronic kidney disease, stage 3 unspecified Your Care Team Attending Physician - Sonja Quezada MD Primary Care Physician - Sonja Quezada MD This Is Your Medications List Misc Prescription Misc Prescription Misc Prescription Misc Prescription (Alcohol Prep Pad) Misc Prescription (potassium) alprazolam (Xanax 0.5 mg Tab) apixaban (Eliquis 5 mg oral tablet) aspirin azithromycin (azithromycin 500 mg oral tablet) esomeprazole (esomeprazole 40 mg Cap-EC) fluticasone nasal (fluticasone Nasal 0.05 mg/inh Reed) furosemide (furosemide 40 mg Tab) levocetirizine (levocetirizine 5 mg oral tablet) levothyroxine (levothyroxine 75 mcg (0.075 mg) Tab) losartan (losartan 25 mg Tab) pitavastatin (pitavastatin 2 mg oral tablet) sitagliptin (Januvia 100 mg Tab) Procedures Performed Appendectomy, CABG x 3 - Coronary artery bypass grafts x 3, Cataracts, Cholecystectomy, Colonoscopy, Cryoablation, EGD (esophagogastroduodenoscop ic) 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 Discharge Vitals Temperature (Oral) 36.1 ???C Heart Rate (Peripheral) 58 Respiratory Rate 20 Blood Pressure 116/58 Height 157 cm Height 62 in Weight 65.4 kg Weight 144.182 lb BMI 26.53 What to do next Scheduled Follow-Up Appointments Thursday 1:40 PM EDT With: Damien GUTIERREZ, Sonja Good Where: [address] [id number] 1:00 PM EDT With: Where: [address] [id number]- Medications What How Much When Why Instructions Unchanged alprazolam (Xanax 0.5 mg Tab) 1 Tablets By Mouth 3 times a day as needed for for anxiety Duration: 90 Days 1 BID and 2QHS. Unchanged apixaban (Eliquis 5 mg oral tablet) 1 Tablets By Mouth 2 times a day Oral, 0 Refill(s) Unchanged aspirin See instructions 81 mg Oral 3 times a week Unchanged azithromycin (azithromycin 500 mg oral tablet) 1 Tablets By Mouth Every day Acute URI BMI 26.0-26.9,adult Former smoker Overweight (BMI 25.0-29.9) Unchanged esomeprazole (esomeprazole 40 mg Cap-EC) 1 Capsules By Mouth 2 times a day Oral, 0 Refill(s) Unchanged fluticasone nasal (fluticasone Nasal 0.05 mg/ inh Reed) 2 Sprays Nasal Inhalation Every day Nasal, 0 Refill(s) Unchanged furosemide (furosemide 40 mg Tab) 1 Tablets By Mouth Every day Unknown, 0 Refill(s) Unchanged levocetirizine (levocetirizine 5 mg oral tablet) 1 Tablets By Mouth Once a day (in the evening) Unchanged levothyroxine (levothyroxine 75 mcg (0.075 mg) Tab) 1 Tablets By Mouth Every day Unchanged losartan (losartan 25 mg Tab) 1 Tablets By Mouth Every day Unknown, 0 Refill(s) Unchanged Misc Prescription 0 Potassium Gluconate 595 mg bottle reads Potassium 99mg (from 595 Potassium Gluconate) -takes 2 per day sometimes 4 per day Unchanged Misc Prescription 0 Magnesium Oxide- 400mg Patient states she takes 2 per day Unchanged Misc Prescription 0 Glucosamine Chondoitin Glucosamine 1500 mg Chondroitin 1200mg Sodium 125mg Potassium 194mg *patient states she takes 2 tabs per day Unchanged Misc Prescription (Alcohol Prep Pad) See instructions 1 box of alcohol prep pads Unchanged Misc Prescription (potassium) 0 Every day Unchanged pitavastatin (pitavastatin 2 mg oral tablet) 1 Tablets By Mouth Every day Unchanged sitagliptin (Januvia 100 mg Tab) 1 Tablets By Mouth Every day Oral, 0 Refill(s) Allergies Alcohol Lipitor Zetia cetirizine Problems Ongoing - Any problem that you are currently receiving treatment for. Acute URI Anxiety ASCVD (arteriosclerotic cardiovascular disease) Barretts esophagus Benign hypertension with chronic kidney disease, stage III BMI 26.0-26.9,adult Dermatitis Dysphagia Essential hypertension Essential tremor Former smoker HLD (hyperlipidemia) Hx of coronary artery bypass surgery Hypothyroid Long-term current use of opiate analgesic drug Osteoporosis Overweight (BMI 25.0-29.9) Stage 3b chronic kidney disease (CKD) Type 2 diabetes mellitus with hyperlipidemia Type 2 diabetes mellitus with stage 3b chronic kidney disease Unspecified macular degeneration Historical - Any problem that you are no longer receiving treatment for. DM type 2 without retinopathy Patient Survey You may receive a survey via text or e-mail asking about your office visit. Please share your experience with us by bogdan (more content not included)... Normal [facility] Family Medicine Office/Clini c Noteon 02-08-2025 Family Medicine Office/Clinic Note Family Medicine Office/Clinic Note Chief Complaint Medicare Annual Wellness History of Present Illness Covid-19, MERS, Ebola Screen *Contact With Person With Highly Contagious Disease Like Ebola/MERS/COVID-19 AND Have One or More of the Symptoms Below : No *Travel to a Country With Wide-Spread Ebola/MERS/COVID-19 in the Past 21 Days AND Have One or More of the Symptoms Below : No Patient Reported Covid-19 Testing : No *Verify Droplet, Contact Precautions for Ebola (Reference for CDC) : N/A *Verify Airborne, Droplet Precautions for MERS/COVID-19 : N/A AMALIA MARY CNP - 02/02/2025 13:55 EDT Medicare/Medicaid Summary Chief Complaint : Medicare Annual Wellness Patient Counseled : Nutrition Height/Length Measured : 157 cm(Converted to: 5 ft 2 in, 61.81 in) Weight Measured : 65.4 kg(Converted to: 144 lb 3 Ounces, 144.182 lb) Body Mass Index Measured : 26.53 kg/m2 Height in Inches : 62 in Weight in Pounds : 144.182 lb Ht/Wt Measurement Refused by Patient? : No Systolic Blood Pressure : 116 mmHg Diastolic Blood Pressure : 58 mmHg (LOW) Blood Pressure Location : Left arm Blood Pressure Position : Standing Peripheral Pulse Rate : 58 bpm (LOW) Temperature Oral : 36.1 DegC(Converted to: 97.0 DegF) Pain Present : No actual or suspected pain AMALIA MARY CNP - 02/02/2025 13:55 EDT Patient Preferred Method of Communication No Preference Hearing and Vision Screening FT Hearing Screen Comments : Normal hearing FT Whisper Test Comments : Normal Hearing Vision Screen Comments : Glasses for reading AMALIA MARY CNP - 02/02/2025 13:55 EDT Advance Directive FT Advance Directive : Yes Advance Directive Date : Billboard Erector Helper has original; patietn encourgaed to provide a copy Type of Advance Directive : Living will Organ Donation Consent : No AMALIA MARY CNP - 02/02/2025 13:55 EDT Procedures / Surgeries FT - Procedure History (As Of: 02/02/2025 14:49:17 EDT) Anesthesia Minutes: 0 ; Procedure Name: CABG x 3 - Coronary artery bypass grafts x 3 ; Procedure Minutes: 0 ; Last Reviewed Dt/Tm: 02/02/2025 14:47:08 EDT Anesthesia Minutes: 0 ; Procedure Name: EGD (esophagogastroduodenoscop ic) electrohydraulic lithotripsy of bezoar in stomach ; Procedure Minutes: 0 ; Comments: 01/12/2024 13:07 EDT - Makenna Puga LPNith L 12/31/23 for barretts esophagus, stretched 10/13/2023 13:18 EST - Jess Puga LPN L several ; Last Reviewed Dt/Tm: 02/02/2025 14:47:08 EDT Anesthesia Minutes: 0 ; Procedure Name: Cataracts, bilateral ; Procedure Minutes: 0 ; Last Reviewed Dt/Tm: 02/02/2025 14:47:08 EDT Anesthesia Minutes: 0 ; Procedure Name: Colonoscopy ; Procedure Minutes: 0 ; Comments: 10/13/2023 13:18 EST - Jess Puga LPN L several ; Last Reviewed Dt/Tm: 02/02/2025 14:47:08 EDT Anesthesia Minutes: 0 ; Procedure Name: Hysterectomy, left one ovary ; Procedure Minutes: 0 ; Last Reviewed Dt/Tm: 02/02/2025 14:47:08 EDT Anesthesia Minutes: 0 ; Procedure Name: Appendectomy ; Procedure Minutes: 0 ; Last Reviewed Dt/Tm: 02/02/2025 14:47:08 EDT Anesthesia Minutes: 0 ; Procedure Name: Cholecystectomy ; Procedure Minutes: 0 ; Last Reviewed Dt/Tm: 02/02/2025 14:47:08 EDT Anesthesia Minutes: 0 ; Procedure Name: Cryoablation, esophagus ; Procedure Minutes: 0 ; Comments: 09/06/2024 12:54 EST - Jess Puga LPN L additonal one on 09/03/24 07/05/2024 13:50 EDT - Jess Puga LPN L done every couple months at [facility] ; Last Reviewed Dt/Tm: 02/02/2025 14:47:08 EDT Family History Family History (As Of: 02/02/2025 14:49:17 EDT) Mother: Relation: Mother ; Gender: Female ; Nomenclature: Primary malignant neoplasm of colon ; Value: Positive Medicare/Medicaid Social History FT Social History (As Of: 02/02/2025 14:49:17 EDT) Alcohol: Denies Alcohol Use Never. (Last Updated: 09/06/2024 17:32:18 UTC by GeovanyUseAvi gonzalez) Tobacco: Former smoker, quit more than 30 days ago Tobacco Use:. Never Smokeless Tobacco Use:. Cigarettes, Household tobacco concerns: No. Yes (Last Updated: 02/02/2025 14:33:32 EDT by AMALIA MARY CNP) Substance Abuse: Denies Substance Abuse Never. (Last Updated: 09/06/2024 17:32:18 UTC by Avi Noble) Health Risk Assessment FT HRA little interest or pleasure? : No HRA down, depressed, or hopeless? : No Hazards in your house? : No Fall Risk Past Year : No Worried About Falling : No Use a Cane or Walker? : Yes Someone Helps You in the Morning : No Fallen or felt dizzy standing up? : No Assistance with personal care? : No Trouble taking meds correctly? : No HRA Pain Present : No Able to walk without help? : Yes Ability to shop w/out help : Yes Prepare your own meals? : Yes Housework without help? : Yes Handle money without help : Yes Track own medications without help? : Yes Overall mood for past four weeks : Good and bad parts about equal General health rating : Good Someone avail. to help if needed? : Yes, as much as I (more content not included)... Normal [facility] Comment on above: Result Comment: Elec tronically Signed By: Sonja Quezada MD\.br\Date and Time Signed: 02/08/25 13:31 EDT\.br\Electronically Co-Signed By: Екатерина Alfonso\.br\Date and Time Co-Signed: 02/02/25 22:16 EDT Family Medicine Office/Clini c Noteon 01-02-2025 Family Medicine Office/Clinic Note Family Medicine Office/Clinic Note Chief Complaint Sick Visit Cough and sore throat following recent pneumonia recovery. HPI Staff Pt presents today for acute sick visit. Sore throat in the AM for the past 4-5 days. States iit does get better as the day goes on. Denies fever. Diarrhea a couple days. Is scheduled for esophageal ablation this week. History of Present Illness The patient is an 79-year-old female presenting with symptoms of an acute upper respiratory infection. She observed coughing and sore throat two days prior, following recent pneumonia treatment, and stressed the importance of preventing its reoccurrence. The cough is mild, generally not worsening at night, and accompanied by postnasal drip. A negative result for COVID-19 and influenza tests was noted, alongside the absence of fever. Diarrhea is attributed to mucus irritation, with current medication providing relief. The patient also anticipates upcoming esophageal cryotherapy, raising concerns about her ability to meet pre-operative health criteria given her current respiratory symptoms. Review of Systems PHQ Score Initial Depression Screen Score: 0 SCORE Physical Exam Vitals & Measurements T: 36.8 ???C(Tympanic) HR: 70(Peripheral) RR: 18 BP: 124/76 SpO2: 96% HT: 157 cm HT: 62 in WT: 142.639 lb WT: 64.7 kg BMI: 26.25 General: alert, no acute distress, appears exhausted ENMT: oral mucosa moist, throat red, no tonsils visible Cardiovascular: Regular rate and rhythm, normal peripheral perfusion Respiratory: Lungs clear to auscultation, respirations non labored Extremities: no deformity, no trauma Neurological: oriented x 4, level of consciousness appropriate for age, CN II-XII intact, motor strength equal & normal bilaterally, speech normal Abdomen: Soft, Non-tender, Non-distended, + Bowel sounds, reports diarrhea Assessment/Plan 1. Acute URI (J06.9: Acute upper respiratory infection, unspecified) Initiate azithromycin 500 mg for three days to address infection symptoms and prevent progression. Benadryl recommended for symptomatic relief and potential allergic component management. Ordered: azithromycin, 500 mg = 1 tab(s), Oral, Daily, # 3 tab(s), Refills(s) 0, Pharmacy: [facility], 157, cm, 01/02/25 11:17:00 EDT, Height/Length Dosing, 64.7, kg, 01/02/25 11:17:00 EDT, Weight Dosing Body Mass Index (BMI) documented 3008F Current tobacco non-user 1036F Depression Screening Negative 3352F Discharge medications reconciled with current medications in outpatient record 1111F Influenza immunization status assessed 1030F Influenza Type A&B POC 56312 Medication list documented in medical record 1159F Most recent diastolic blood pressure <80 mm Hg 3078F Patient screen for fall risk: no falls in last year or 1 fall with no injury in last year 1101F Rapid COVID POC 16108 Review of all meds by a prescribing practitioner or clinical pharmacist documented in EHR 1160F Systolic BP <130 mm Hg (Most Recent) 3074F 2. BMI 26.0-26.9,adult (Z68.26: Body mass index [BMI] 26.0-26.9, adult) BMI education added. Ordered: azithromycin, 500 mg = 1 tab(s), Oral, Daily, # 3 tab(s), Refills(s) 0, Pharmacy: [facility], 157, cm, 01/02/25 11:17:00 EDT, Height/Length Dosing, 64.7, kg, 01/02/25 11:17:00 EDT, Weight Dosing 3. Former smoker (Z87.891: Personal history of nicotine dependence) Long-term management and smoking cessation support to be revisited for respiratory health, given past smoking history. Ordered: azithromycin, 500 mg = 1 tab(s), Oral, Daily, # 3 tab(s), Refills(s) 0, Pharmacy: [facility], 157, cm, 01/02/25 11:17:00 EDT, Height/Length Dosing, 64.7, kg, 01/02/25 11:17:00 EDT, Weight Dosing 4. Overweight (BMI 25.0-29.9) (E66.3: Overweight) Acknowledge and consider lifestyle modification post-resolution of acute issues. No immediate intervention due to primary focus on acute infection. Ordered: azithromycin, 500 mg = 1 tab(s), Oral, Daily, # 3 tab(s), Refills(s) 0, Pharmacy: [facility], 157, cm, 01/02/25 11:17:00 EDT, Height/Length Dosing, 64.7, kg, 01/02/25 11:17:00 EDT, Weight Dosing 79-year-old female with history of recent pneumonia presenting with acute upper respiratory infection. The presentation aligns with common URI symptoms, and examination reveals clear lung sounds with a negative test for other infections. Diagnosis centers on managing symptoms and preventing complications that may delay scheduled esophageal intervention. During the visit, we discussed the presence of acute URI symptoms and considered possible complications due to her recent pneumonia. The conversation included the prescription of azithromycin to target and prevent infection exacerbation, with a plan to take Benadryl to address symptoms and possible allergic contributors. The potential impact of symptoms on her scheduled esophageal procedure was noted, and it was acknowledged that rescheduling could (more content not included)... Normal [facility] Comment on above: Result Comment: Elec tronically Signed By: Sonja Quezada MD\.br\Date and Time Signed: 01/02/25 11:42 EDT NURSING PROGon 12-29-2024 NURSING PROG HNO ID: [id number] Author: ADORE DEL REAL RN Service: ? Author Type: Registered Nurse Type: Nursing Progress Note Filed: 12/29/2024 15:24 Note Text: Attempted to reach the patient at the contact number that they provided [phone] (home) . Unable to speak with patient so without identifying the patient the following information was left on their voice mail: Date of procedure, location and report time Prep instructions A message was left informing the patient/patient insurance claim representative they must have a responsible adult accompany them to their procedure; and remain in the endoscopy area until they are discharged. Failure to have a responsible adult accompany the patient to their procedure appointment prevents the use of sedation or anesthesia for their procedure; and can result in cancellation of the procedure NPO instructions were reviewed. Instructions to contact their primary care provider regarding their medications and which medications to stop in preparation for their procedure Instructions to completely read and follow the written instructions that they recieved regarding their procedure. Number to call with questions or concerns [phone] Number to call to cancel their procedure [phone] Adore Del Real RN [facility] Ambulatory Visit Summaryon 0 12-13-2024 Ambulatory Visit Summary Ambulatory Visit Summary DANIELA RAYMUNDO :1945 Visit Date:12/13/2024 Ambulatory Visit Instructions Your Diagnosis BMI 26.0-26.9,adult Overweight (BMI 25.0-29.9) Former smoker Type 2 diabetes mellitus with hyperlipidemia Stage 3b chronic kidney disease (CKD) Hypothyroid Essential hypertension Anxiety Essential tremor Hyperlipidemia, unspecified Your Care Team Attending Physician - Sonja Quezada MD Primary Care Physician - Sonja Quezada MD This Is Your Medications List Misc Prescription Misc Prescription Misc Prescription Misc Prescription (Alcohol Prep Pad) alendronate (alendronate 70 mg Tab) alprazolam (Xanax 0.5 mg Tab) apixaban (Eliquis 5 mg oral tablet) aspirin esomeprazole (esomeprazole 40 mg Cap-EC) fluocinonide topical (fluocinonide Top 0.05% Crm 15 gram) fluticasone nasal (fluticasone Nasal 0.05 mg/inh Reed) furosemide (furosemide 40 mg Tab) levocetirizine (levocetirizine 5 mg oral tablet) levothyroxine (levothyroxine 75 mcg (0.075 mg) Tab) losartan (losartan 25 mg Tab) pitavastatin (Livalo 1 mg oral tablet) pitavastatin (Livalo 2 mg oral tablet) sitagliptin (Januvia 100 mg Tab) Procedures Performed Appendectomy, CABG x 3 - Coronary artery bypass grafts x 3, Cataracts, Cholecystectomy, Colonoscopy, Cryoablation, EGD (esophagogastroduodenoscop ic) 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 Discharge Vitals Heart Rate (Peripheral) 64 Respiratory Rate 18 Blood Pressure 118/66 Height 157 cm Height 62 in Weight 65.5 kg Weight 144.403 lb BMI 26.57 What to do next Scheduled Follow-Up Appointments 2024 2:30 PM EDT With: Where: [address] [id number]- Thursday 1:40 PM EDT With: Sonja Quezada MD Where: [address] [id number]- Medications What How Much When Why Instructions Unchanged alendronate (alendronate 70 mg Tab) 1 Tablets By Mouth Every 7 days with 6-8 oz plain water, at least 30 minutes before first food, beverage, or medication of the day Unchanged alprazolam (Xanax 0.5 mg Tab) 1 Tablets By Mouth 3 times a day as needed for for anxiety Duration: 90 Days 1 BID and 2QHS. Unchanged apixaban (Eliquis 5 mg oral tablet) 1 Tablets By Mouth 2 times a day Oral, 0 Refill(s) Unchanged aspirin See instructions 81 mg Oral 3 times a week Unchanged esomeprazole (esomeprazole 40 mg Cap-EC) 1 Capsules By Mouth 2 times a day Oral, 0 Refill(s) Unchanged fluocinonide topical (fluocinonide Top 0.05% Crm 15 gram) 1 Application Topical 3 times a day DM type 2 without retinopathy BMI 25.0-25.9,adult Over weight Former smoker Unchanged fluticasone nasal (fluticasone Nasal 0.05 mg/ inh Reed) 2 Sprays Nasal Inhalation Every day Nasal, 0 Refill(s) Unchanged furosemide (furosemide 40 mg Tab) 1 Tablets By Mouth Every day Unknown, 0 Refill(s) Unchanged levocetirizine (levocetirizine 5 mg oral tablet) 1 Tablets By Mouth Once a day (in the evening) Unchanged levothyroxine (levothyroxine 75 mcg (0.075 mg) Tab) 1 Tablets By Mouth Every day Unchanged losartan (losartan 25 mg Tab) 1 Tablets By Mouth Every day Unknown, 0 Refill(s) Unchanged Misc Prescription 0 Potassium Gluconate 595 mg bottle reads Potassium 99mg (from 595 Potassium Gluconate) -takes 2 per day sometimes 4 per day Unchanged Misc Prescription 0 Magnesium Oxide- 400mg Patient states she takes 2 per day Unchanged Misc Prescription 0 Glucosamine Chondoitin Glucosamine 1500 mg Chondroitin 1200mg Sodium 125mg Potassium 194mg *patient states she takes 2 tabs per day Unchanged Misc Prescription (Alcohol Prep Pad) See instructions 1 box of alcohol prep pads Unchanged pitavastatin (Livalo 1 mg oral tablet) 1 Tablets By Mouth Every day Osteoporosis Unchanged pitavastatin (Livalo 2 mg oral tablet) 1 Tablets By Mouth Every day Osteoporosis Stage 3b chronic kidney disease (CKD) Type 2 diabetes mellitus with hyperlipidemia Unchanged sitagliptin (Januvia 100 mg Tab) 1 Tablets By Mouth Every day Oral, 0 Refill(s) Allergies Alcohol Lipitor Zetia cetirizine Problems Ongoing - Any problem that you are currently receiving treatment for. Anxiety ASCVD (arteriosclerotic cardiovascular disease) Barretts esophagus Benign hypertension with chronic kidney disease, stage III BMI 26.0-26.9,adult Dermatitis Essential hypertension Essential tremor Former smoker HLD (hyperlipidemia) Hx of coronary artery bypass surgery Hypothyroid Long-term current use of opiate analgesic drug Osteoporosis Overweight (BMI 25.0-29.9) Stage 3b chronic kidney disease (CKD) Type 2 diabetes mellitus with hyperlipidemia Type 2 diabetes mellitus with stage 3b chronic kidney disease Unspecified macular degeneration Historical - Any problem erasto (more content not included)... Normal [facility] Family Medicine Office/Clini c Noteon 12-13-2024 Family Medicine Office/Clinic Note Family Medicine Office/Clinic Note Chief Complaint Follow up Concerns regarding anxiety management and symptoms associated with essential tremor. HPI Staff 3m follow up to going back to Xanax 0.5mg throughout the day & 2x @ night. Has not been taking BID @ [facility], because she is afraid of running out of medication. Frustrated with the process of getting refills. Pt was at [facility] Visit date: 12/05/24 Symptoms the patient presented with: Chest pain. DX'd w/pneumonia Current concerns: Would also like to discuss getting closer learning support aide. A1C done 11/18/24. Would like to discuss results. Annual labs done 11/22/24 as well and ready for review. History of Present Illness The patient is an 79-year-old female presenting with concerns regarding anxiety management and essential tremor. She reports dissatisfaction with the current regulations for Xanax dispensing, as she previously managed her anxiety under a different regimen that provided peace of mind regarding medication availability. She is considering options for healthcare closer to her home for better accessibility to anxiety management. Regarding her essential tremor, the patient has significant fatigue and weakness, especially after climbing stairs, requiring frequent rests. She notes an improvement in her symptoms when off certain medications, speculating a possible association with her thyroid medication. She is not currently taking a beta-chloé, which could alleviate both her tremor and hypertension symptoms. Her medical history includes recurring esophageal procedures to manage scar tissue, contributing to her stress. These procedures have occurred every 10 weeks except in the recent months due to her inability to handle stress. She resides with her , maintains contact with her children, and has had discussions about needing palliative care support due to her complex health concerns, such as her esophageal issues and essential tremor. She has expressed interest in additional support through palliative care services like [facility], which might offer further assistance with her anxiety and tremor management. - Routine follow-up and monitoring for anxiety and essential tremor management. - Assessment of medication efficacy and adherence for current prescriptions. - Discussion regarding potential referral to [facility] for palliative care support. - Monitoring and adjusting treatment for chronic conditions: hypertension, CKD, thyroid status, and diabetes. Review of Systems PHQ Score Initial Depression Screen Score: 0 SCORE Physical Exam Vitals & Measurements HR: 64(Peripheral) RR: 18 BP: 118/66 SpO2: 96% HT: 62 in HT: 157 cm WT: 65.5 kg WT: 144.403 lb BMI: 26.57 General: alert, no acute distress ENMT: oral mucosa moist Cardiovascular: Regular rate and rhythm, normal peripheral perfusion Respiratory: Lungs clear to auscultation, respirations non labored Extremities: no deformity, no trauma Neurological: oriented x 4, level of consciousness appropriate for age, CN II-XII intact, motor strength equal & normal bilaterally, speech normal Abdomen: Soft, Non-tender, Non-distended, + Bowel sounds Assessment/Plan 1. BMI 26.0-26.9,adult (Z68.26: Body mass index [BMI] 26.0-26.9, adult) BMI education added. 2. Overweight (BMI 25.0-29.9) (E66.3: Overweight) Diet and exercise advised. 3. Former smoker (Z87.891: Personal history of nicotine dependence) Please continue to not smoke 4. Type 2 diabetes mellitus with hyperlipidemia (E11.69: Type 2 diabetes mellitus with other specified complication) A1c is still at goal 5. Stage 3b chronic kidney disease (CKD) (N18.32: Chronic kidney disease, stage 3b) Labs are stable. 6. Hypothyroid (E03.9: Hypothyroidism, unspecified) Patient's thyroid labs are within normal limits no concerns at this time. Continue medication as before. 7. Essential hypertension (I10: Essential (primary) hypertension) Blood pressure is at goal. No concerns at this time. 8. Anxiety (F41.9: Anxiety disorder, unspecified) Due to dissatisfaction with her current anxiety medication access, I discussed possible referral options nearer to her residence and suggested exploring additional support through [facility] for further palliative care management. 9. Essential tremor (G25.0: Essential tremor) I proposed the potential introduction of a beta-chloé for tremor and hypertension management. A medication review was advised, with palliative care consultation recommended to further assist symptom control. 10. Dysphagia (R13.10: Dysphagia, unspecified) The patient's consistent surgical schedule for managing esophageal scar tissue remains necessary. Coordination with her surgical team is planned to ensure regular interventions. Hyperlipidemia, unspecified (E78.5: Hyperlipidemia, unspecified) Orders: alprazolam, 0.5 mg = 1 tab(s), Oral, TID, PRN for anxiety, 1 BID and 2QHS., X 90 day(s), # 360 tab(s), Refills(s) 0, Pharmacy: [facility] (more content not included)... Normal [facility] Comment on above: Result Comment: Elec tronically Signed By: Damien GUTIERREZ, Sonja Lockett.br\Date and Time Signed: 12/13/24 14:30 EDT Alanine aminotransferase [En zymatic activity/volume] in Serum or PlasmaOrdered By: Bladimir Almonte on 12-05-2024 ALT [Catalytic activity/Vol] Alanine aminotransferase [Enzymatic activity/volume] in Serum or Plasma 7-52 [facility] Albumin [Mass/volume] in Ser um or Plasma by Bromocresol green (BCG) dye binding methoOrdered By: Bladimir Almonte on 12-05-2024 Albumin BCG dye [Mass/Vol] Albumin [Mass/volume] in Serum or Plasma by Bromocresol green (BCG) dye binding metho 3.5-5.7 [facility] Alkaline phosphatase [Enzyma tic activity/volume] in Serum or PlasmaOrdered By: Bladimir Almonte on 12-05-2024 ALP [Catalytic activity/Vol] Alkaline phosphatase [Enzymatic activity/volume] in Serum or Plasma 34-104 [facility] Aspartate aminotransferase [ Enzymatic activity/volume] in Serum or PlasmaOrdered By: Bladimir Almonte on 12-05-2024 AST [Catalytic activity/Vol] Aspartate aminotransferase [Enzymatic activity/volume] in Serum or Plasma 13-39 [facility] Basic Metabolic Panelon 11-26 Anion gap [Moles/Vol] 8.5 mmol/L Normal 6.0-15.0 [facility] Comment on above: Performed By: #### H EPATIC, CK, HS TROP, CBC, BMP ####[facility] Calcium [Mass/Vol] 9.9 mg/dL Normal 8.6-10.3 [facility] Comment on above: Performed By: #### H EPATIC, CK, HS TROP, CBC, BMP ####[facility] Chloride [Moles/Vol] 105 mmol/L Normal 98-107 [facility] Comment on above: Performed By: #### H EPATIC, CK, HS TROP, CBC, BMP ####[address] CO2 [Moles/Vol] 27.6 mmol/L Normal 21.0-31.0 [facility] Comment on above: Performed By: #### H EPATIC, CK, HS TROP, CBC, BMP ####[address] Creatinine [Mass/Vol] 1.61 mg/dL High 0.60-1.20 [facility] Comment on above: Performed By: #### H EPATIC, CK, HS TROP, CBC, BMP ####[address] Creatinine Clr Calc Pharmacy 22.67 Normal [facility] Comment on above: Result Comment: PERF ORMED BY: [facility] [address] [place] [address] PATHOLOGIST IT ENGINEER ANA CLARK M.D. Performed By: #### H EPATIC, CK, HS TROP, CBC, BMP ####[address] Estimated GFR 31.961 mL/Min Normal [facility] Comment on above: Performed By: #### H EPATIC, CK, HS TROP, CBC, BMP ####[address] Glucose [Mass/Vol] 161 mg/dL High 70-100 [facility] Comment on above: Result Comment: [place] Glucose Reference Range is dependent on time and content of last meal. Glucose of more than 200 mg/dL in a nonstressed, ambulatory subject supports the diagnosis of Diabetes Mellitus. ADA recommended reference range Performed By: #### H EPATIC, CK, HS TROP, CBC, BMP ####[address] Potassium [Moles/Vol] 4.1 mmol/L Normal 3.5-5.1 [facility] Comment on above: Performed By: #### H EPATIC, CK, HS TROP, CBC, BMP ####[place] [address] [address] Sodium [Moles/Vol] 137 mmol/L Normal 136-145 [facility] Comment on above: Performed By: #### H EPATIC, CK, HS TROP, CBC, BMP ####[place] [address] [address] Urea nitrogen [Mass/Vol] 25 mg/dL Normal 7-25 [facility] Comment on above: Performed By: #### H EPATIC, CK, HS TROP, CBC, BMP ####[place] [address] [address] Basophils Auto (Bld) [#/Vol] Ordered By: PROVIDER TEMP on 12-05-2024 Basophils (Bld) [#/Vol] Automated basophil count 0.0-0.2 [facility] Basophils/100 WBC Auto (Bld) Ordered By: PROVIDER TEMP on 12-05-2024 Basophils/100 WBC (Bld) Automated basophil % . [facility] Bilirubin.direct [Mass/volum e] in Serum or PlasmaOrdered By: Bladimir Almonte on 12-05-2024 Bilirubin.direct [Mass/Vol] Bilirubin.direct [Mass/volume] in Serum or Plasma 0.03-0.18 [facility] Bilirubin.total [Mass/volume ] in Serum or PlasmaOrdered By: Bladimir Almonte on 12-05-2024 Bilirubin [Mass/Vol] Bilirubin.total [Mass/volume] in Serum or Plasma 0.3-1.0 [facility] COVID Cepheid NegativeOrdere d By: Jamar Rashid on 12-05-2024 SARS-CoV-2 (COVID-19) Ab IA Ql COVID Cepheid Negative [facility] Comment on above: This is a duplicate Cepheid Xpert Xpress CoV-2/Flu/RSV Plus RNA by RT-PCR result to be used for statistical tracking purpose only. COVID-19 / Flu A/B / RSV PCR on 03-10-2025 SARS-CoV-2 (COVID-19) RNA LATRICE+probe Ql (Unsp spec) SPOKE WITH JO IN ER @1707. ASKED HER TO PLACE ORDER FOR PCR SWAB SITTING IN LAB SINCE 1550. -KP COVID-19 Cepheid Result Negative for SARS-CoV-2 RNA by RT-PCR Flu A Cepheid Result Negative for Flu A RNA by RT-PCR Flu B Cepheid Result Negative for Flu B RNA by RT-PCR RSV Cepheid Result Negative for RSV RNA by RT-PCR COVID19 Blank Space -- Reference: Negative COVID19 Blank Space -- Cepheid Disclaimer The Cepheid Xpert Xpress CoV-2/Flu/RSV Plus has Cepheid Disclaimer not been FDA cleared or approved; this test has Cepheid Disclaimer been authorized by FDA under an EUA for use by Cepheid Disclaimer authorized laboratories; this test has been Cepheid Disclaimer authorized only for the simultaneous qualitative Cepheid Disclaimer detection and differentiation of nucleic acids from Cepheid Disclaimer SARS-CoV-2, influenza A, influenza B, and Cepheid Disclaimer respiratory syncytial virus (RSV), and not for any Cepheid Disclaimer other viruses or pathogens; and this test is only Cepheid Disclaimer authorized for the duration of the declaration that Cepheid Disclaimer circumstances exist justifying the authorization of Cepheid Disclaimer emergency use of in vitro diagnostic tests for Cepheid Disclaimer detection and/or diagnosis of COVID-19 under Cepheid Disclaimer Section 564(b)(1) of the Act, 21 U.S.C. 360bbb- Cepheid Disclaimer 3(b)(1), unless the authorization is terminated or Cepheid Disclaimer revoked sooner. PERFORMED BY: [facility] [place] [address] PATHOLOGIST IT ENGINEER ANA CLARK M.D. Normal [facility] Comment on above: Performed By: #### C EPHEID NEG, COVID19 FLU RSV ####[facility] [id number] [place] [id number] [facility] CT angio chest PE protocolon 12-05-2024 CT angio chest PE protocol [facility] [facility] [address] [place] [address] [place] [address] CT Scan Report Signed Patient: Daniela Raymundo MR#: [id number] 2 : 1945 Acct:[id number] Age/Sex: 79 / F ADM Date: 12/05/24 Loc: ER Room: Type: [facility] ER Attending Dr: Copies to: Erwin Childers DO Ordering Provider: Erwin Childers DO Date of Service: 12/05/24 CT/CT angio chest PE protocol: eval for PE vs pna CTA Chest TECHNIQUE: Axial imaging with 2-D and 3-D reconstruction. 75cc of Isovue-[address] exam was performed using one or more the following dose reduction techniques: Automated exposure control, adjustment of the MA and/or Kv according to patient size, or use of the iterative reconstruction technique. History: Left-sided chest pain. Shortness of breath COMPARISON: None THYROID: Unremarkable TRACHEA AND BRONCHI: Patent ESOPHAGUS: Large hiatal hernia. HEART: Cardiomegaly with CABG. PERICARDIAL EFFUSION: None CORONARY ARTERY CALCIFICATION: Present MEDIASTINUM: No adenopathy. No pneumoperitoneum. No mediastinal hematoma. PULMONARY PRIETO: No hilar mass or adenopathy is seen. THORACIC AORTA Unremarkable PULMONARY EMBOLUS: None LUNG NODULE None LUNGS: The basilar scarring. PLEURAL EFFUSION: None PNEUMOTHORAX: No pneumothorax seen. CHEST WALL: No abnormality AXILLA: Unremarkable BONY STRUCTURES Intact UPPER ABDOMEN: Images of the upper abdomen are noncontributory. CT/CT angio chest PE protocol IMPRESSION: No no aneurysm or dissection. No pulmonary embolus. No acute findings. Large hiatal hernia. Cardiomegaly. Impression dictated by: Laith Dejesus M.D.12/05/2024 9:25 PM Dictation Location: [facility]ote[facility]-20 Transcribed By: PWS 12/05/242124 Dictated By: Laith Dejesus DO 12/05/242120 Signed By: 12/05/242124 Normal [facility] Calcium [Mass/volume] in Ser um or PlasmaOrdered By: PROVIDER TEMP on 12-05-2024 Calcium [Mass/Vol] Calcium [Mass/volume ] in Serum or Plasma 8.6-10.3 [facility] Carbon dioxide, total [Moles /volume] in Serum or PlasmaOrdered By: PROVIDER TEMP on 12-05-2024 CO2 [Moles/Vol] Carbon dioxide, tota l [Moles/volume] in Serum or Plasma 21.0-31.0 [facility] Cepheid COVID PCR Negativeon 12-05-2024 SARS-CoV-2 (COVID-19) RNA LATRICE+probe Ql (Unsp spec) Negative Normal Negative [facility] Comment on above: Result Comment: This is a duplicate Cepheid Xpert Xpress CoV-2/Flu/RSV Plus RNA by RT-PCR result to be used for statistical tracking purpose only. PERFORMED BY: [facility] [address] [place] [address] PATHOLOGIST IT ENGINEER ANA CLARK M.D. Performed By: #### C EPHEID NEG, COVID19 FLU RSV ####[facility] [id number] [place] [address] [facility] Chloride [Moles/volume] in S stacia or PlasmaOrdered By: PROVIDER TEMP on 12-05-2024 Chloride [Moles/Vol] Chloride [Moles/vol ume] in Serum or Plasma 98-107 [facility] Complete Blood Count Auto Di ffon 12-05-2024 Basophils (Bld) [#/Vol] 0.1 10*3/uL Normal 0.0-0.2 [facility] Comment on above: Result Comment: PERF ORMED BY: [facility] [address] [place] [id number] PATHOLOGIST IT ENGINEER ANA CLARK M.D. Performed By: #### H EPATIC, CK, HS TROP, CBC, BMP ####[address] Basophils/100 WBC (Bld) 0.5 % Normal . [facility] Comment on above: Performed By: #### H EPATIC, CK, HS TROP, CBC, BMP ####[address] Eosinophils (Bld) [#/Vol] 0.2 10*3/uL Normal 0.0-0.45 [facility] Comment on above: Performed By: #### H EPATIC, CK, HS TROP, CBC, BMP ####[address] Eosinophils/100 WBC (Bld) 1.5 % Normal . [facility] Comment on above: Performed By: #### H EPATIC, CK, HS TROP, CBC, BMP ####[address] Erythrocyte distribution width (RBC) [Ratio] 13.7 % Normal 11.9-15.3 [facility] Comment on above: Performed By: #### H EPATIC, CK, HS TROP, CBC, BMP ####[address] Hematocrit (Bld) [Volume fraction] 37.1 % Normal 34.0-46.4 [facility] Comment on above: Performed By: #### H EPATIC, CK, HS TROP, CBC, BMP ####[address] Hemoglobin (Bld) [Mass/Vol] 12.0 g/dL Normal 11.8-15.4 [facility] Comment on above: Performed By: #### H EPATIC, CK, HS TROP, CBC, BMP ####[address] Lymphocytes (Bld) [#/Vol] 1.9 10*3/uL Normal 1.00-4.8 [facility] Comment on above: Performed By: #### H EPATIC, CK, HS TROP, CBC, BMP ####[address] Lymphocytes/100 WBC (Bld) 15.8 % Normal . [facility] Comment on above: Performed By: #### H EPATIC, CK, HS TROP, CBC, BMP ####[address] MCH (RBC) [Entitic mass] 27.0 pg Normal 24.7-34.3 [facility] Comment on above: Performed By: #### H EPATIC, CK, HS TROP, CBC, BMP ####[address] MCV (RBC) [Entitic vol] 83.5 fL Normal 80-100 [facility] Comment on above: Performed By: #### H EPATIC, CK, HS TROP, CBC, BMP ####[address] Mean Corpuscular HGB Conc 32.3 g/dL Normal 32.0-35.0 [facility] Comment on above: Performed By: #### H EPATIC, CK, HS TROP, CBC, BMP ####[address] Monocytes (Bld) [#/Vol] 0.8 10*3/uL Normal 0.0-0.8 [facility] Comment on above: Performed By: #### H EPATIC, CK, HS TROP, CBC, BMP ####[address] Monocytes/100 WBC (Bld) 18.71 % Normal 0.00-20.00 [facility] Comment on above: Performed By: #### H EPATIC, CK, HS TROP, CBC, BMP ####[address] Monocytes/100 WBC (Bld) 6.1 % Normal . [facility] Comment on above: Performed By: #### H EPATIC, CK, HS TROP, CBC, BMP ####[address] Neutrophils (Bld) [#/Vol] 9.4 10*3/uL High 1.8-7.7 [facility] Comment on above: Performed By: #### H EPATIC, CK, HS TROP, CBC, BMP ####[address] Neutrophils/100 WBC (Bld) 76.1 % Normal . [facility] Comment on above: Performed By: #### H EPATIC, CK, HS TROP, CBC, BMP ####[address] NRBC% 0.1 /100{WBC} Normal 0-0.5 [facility] Comment on above: Performed By: #### H EPATIC, CK, HS TROP, CBC, BMP ####[address] Platelet mean volume (Bld) [Entitic vol] 9.9 fL Normal 6.3-10.7 [facility] Comment on above: Performed By: #### H EPATIC, CK, HS TROP, CBC, BMP ####[address] Platelets (Bld) [#/Vol] 161 10*3/uL Normal 150-450 [facility] Comment on above: Performed By: #### H EPATIC, CK, HS TROP, CBC, BMP ####[address] RBC (Bld) [#/Vol] 4.44 10*6/uL Normal 3.60-5.00 [facility] Comment on above: Performed By: #### H EPATIC, CK, HS TROP, CBC, BMP ####[address] WBC (Bld) [#/Vol] 12.3 10*3/uL High 3.8-11.6 [facility] Comment on above: Performed By: #### H EPATIC, CK, HS TROP, CBC, BMP ####[address] Creatine Kinaseon 12-05-2024 CK [Catalytic activity/Vol] 40 U/L Normal [facility] Comment on above: Performed By: #### H EPATIC, CK, HS TROP, CBC, BMP ####[facility] [id number] [place] [address] [facility] Creatine kinase [Enzymatic a ctivity/volume] in Serum or PlasmaOrdered By: PROVIDER TEMP on 12-05-2024 CK [Catalytic activity/Vol] Creatine kinase [Enzymatic activity/volume] in Serum or Plasma [facility] Creatinine [Mass/volume] in Serum or PlasmaOrdered By: PROVIDER TEMP on 12-05-2024 Creatinine [Mass/Vol] Creatinine [Mass/v olume] in Serum or Plasma High 0.60-1.20 [facility] ECG 12 lead ECGon 12-05-2024 ECG 12 lead ECG [address] [address] Electrocardiograph Report Signed Patient: Daniela Raymundo MR#: [id number] 2 : 1945 Acct:[id number] Age/Sex: 79 / F ADM Date: 12/05/24 Loc: ER Room: Type: [facility] ER Attending Dr: Ordering Provider: Erwin Childers DO Date of Service: 12/05/2407/22/2211 ECG/ECG 12 lead ECG: Chest Pain Copies to: Test Reason : Blood Pressure : 183/78 mmHG Vent. Rate : 58 BPM Atrial Rate : 58 BPM P-R Int : 160 ms QRS Dur : 76 ms QT Int : 432 ms P-R-T Axes : 78 37 19 degrees QTcB Int : 424 ms Sinus bradycardia Confirmed by Erwin CHILDERS DO ([id number]) on 12/06/2024 12:19:34 AM Referred By: Electronically Signed By: Erwin CHILDERS DO Transcribed By: MUS Signed By Erwin Childers DO 0 12/06/24 0019 Normal [facility] ECG 12 lead ECG [address] [address] Electrocardiograph Report Signed Patient: Daniela Raymundo MR#: [id number] 2 : 1945 Acct:[id number] Age/Sex: 79 / F ADM Date: 12/05/24 Loc: ER Room: Type: [facility] ER Attending Dr: Ordering Provider: Bladimir Almonte DO Date of Service: 12/05/2407/22/1245 ECG/ECG 12 lead ECG: Chest Pain Copies to: Test Reason : Blood Pressure : 128/90 mmHG Vent. Rate : 83 BPM Atrial Rate : 83 BPM P-R Int : 204 ms QRS Dur : 76 ms QT Int : 378 ms P-R-T Axes : 42 41 53 degrees QTcB Int : 444 ms Sinus rhythm Baseline artifact rendering interpretation suboptimal Confirmed by Zuly Peoples ([id number]) on 12/07/2024 3:43:52 PM Referred By: Electronically Signed By: Zuly Peoples Transcribed By: MUS Signed By Zuly Peoples MD 5 1543 Normal [facility] Eosinophils Auto (Bld) [#/Vo l]Ordered By: PROVIDER TEMP on 12-05-2024 Eosinophils (Bld) [#/Vol] Automated eosinophil count 0.0-0.45 [facility] Eosinophils/100 WBC Auto (Bl d)Ordered By: PROVIDER TEMP on 12-05-2024 Eosinophils/100 WBC (Bld) Automated eosinophil % . [facility] Erythrocyte distribution wid th Auto (RBC) [Ratio]Ordered By: PROVIDER TEMP on 12-05-2024 Erythrocyte distribution width (RBC) [Ratio] Erythrocyte distribution width [Ratio] by Automated count 11.9-15.3 [facility] Globulin Calc (S) [Mass/Vol] Ordered By: Bladimir Almonte on 12-05-2024 Globulin (S) [Mass/Vol] Serum globulin m easurement by calculation (mass/volume) [facility] Glucose [Mass/volume] in Ser um or PlasmaOrdered By: PROVIDER TEMP on 12-05-2024 Glucose [Mass/Vol] Glucose [Mass/volume ] in Serum or Plasma High 70-100 [facility] Comment on above: ADA recommended refe rence rangeRandom Glucose Reference Range is dependent on time and content of last meal. Glucose of more than 200 mg/dL in a nonstressed, ambulatory subject supports the diagnosis of Diabetes Mellitus. Hematocrit Auto (Bld) [Volum e fraction]Ordered By: PROVIDER TEMP on 12-05-2024 Hematocrit (Bld) [Volume fraction] Hematocrit [Volume Fraction] of Blood by Automated count 34.0-46.4 [facility] Hemoglobin [Mass/volume] in BloodOrdered By: PROVIDER TEMP on 12-05-2024 Hemoglobin (Bld) [Mass/Vol] Hemoglobin [Mass/volume] in Blood 11.8-15.4 [facility] Hepatic Panelon 12-05-2024 Albumin [Mass/Vol] 4.0 g/dL Normal 3.5-5.7 [facility] Comment on above: Performed By: #### H EPATIC, CK, HS TROP, CBC, BMP ####[address] Albumin/Globulin [Mass ratio] 1.3 {ratio} Normal [facility] Comment on above: Performed By: #### H EPATIC, CK, HS TROP, CBC, BMP ####[address] ALP [Catalytic activity/Vol] 61 U/L Normal 34-104 [facility] Comment on above: Performed By: #### H EPATIC, CK, HS TROP, CBC, BMP ####[address] ALT [Catalytic activity/Vol] 10 U/L Normal 7-52 [facility] Comment on above: Performed By: #### H EPATIC, CK, HS TROP, CBC, BMP ####[address] AST [Catalytic activity/Vol] 17 U/L Normal 13-39 [facility] Comment on above: Performed By: #### H EPATIC, CK, HS TROP, CBC, BMP ####[address] Bilirubin [Mass/Vol] 0.5 mg/dL Normal 0.3-1.0 [facility] Comment on above: Performed By: #### H EPATIC, CK, HS TROP, CBC, BMP ####[facility] Bilirubin,Indirect 0.4 mg/dL Normal [facility] Comment on above: Performed By: #### H EPATIC, CK, HS TROP, CBC, BMP ####[address] Bilirubin.indirect [Mass/Vol] 0.10 mg/dL Normal 0.03-0.18 [facility] Comment on above: Performed By: #### H EPATIC, CK, HS TROP, CBC, BMP ####[address] Globulin (S) [Mass/Vol] 3.0 g/dL Normal [facility] Comment on above: Performed By: #### H EPATIC, CK, HS TROP, CBC, BMP ####[address] Protein [Mass/Vol] 7.0 g/dL Normal 6.4-8.9 [facility] Comment on above: Performed By: #### H EPATIC, CK, HS TROP, CBC, BMP ####[address] Leukocytes [#/volume] correc malina for nucleated erythrocytes in Blood by Automated counOrdered By: PROVIDER TEM on 12-05-2024 WBC corrected for nucl RBC Auto (Bld) [#/Vol] Leukocytes [#/volume] corrected for nucleated erythrocytes in Blood by Automated coun High 3.8-11.6 [facility] Lymphocytes Auto (Bld) [#/Vo l]Ordered By: PROVIDER TEMP on 12-05-2024 Lymphocytes (Bld) [#/Vol] Lymphocytes [#/volume] in Blood by Automated count 1.00-4.8 [facility] Lymphocytes/100 WBC Auto (Bl d)Ordered By: PROVIDER TEMP on 12-05-2024 Lymphocytes/100 WBC (Bld) Lymphocytes/100 leukocytes in Blood by Automated count . [facility] MCH Auto (RBC) [Entitic mass ]Ordered By: PROVIDER TEMP on 12-05-2024 MCH (RBC) [Entitic mass] MCH [Entitic mass] by Automated count 24.7-34.3 [facility] MCHC Auto (RBC) [Mass/Vol]Or dered By: PROVIDER TEMP on 12-05-2024 MCHC (RBC) [Mass/Vol] MCHC [Mass/volume] by Automated count 32.0-35.0 [facility] MCV Auto (RBC) [Entitic vol] Ordered By: PROVIDER TEMP on 12-05-2024 MCV (RBC) [Entitic vol] MCV [Entitic vol ume] by Automated count 80-100 [facility] Monocyte distribution width [Entitic volume] in Blood by AutomatedOrdered By: PROVIDER TEMP on 12-05-2024 Monocyte distribution width Auto (Bld) [Entitic vol] Monocyte distribution width [Entitic volume] in Blood by Automated 0.00-20.00 [facility] Monocytes Auto (Bld) [#/Vol] Ordered By: PROVIDER TEMP on 12-05-2024 Monocytes (Bld) [#/Vol] Automated blood monocyte count 0.0-0.8 [facility] Monocytes/100 WBC Auto (Bld) Ordered By: PROVIDER TEMP on 12-05-2024 Monocytes/100 WBC (Bld) Automated monocyte % . [facility] Neutrophils Auto (Bld) [#/Vo l]Ordered By: PROVIDER TEMP on 12-05-2024 Neutrophils (Bld) [#/Vol] Neutrophils [#/volume] in Blood by Automated count High 1.8-7.7 [facility] Neutrophils/100 WBC Auto (Bl d)Ordered By: PROVIDER TEMP on 12-05-2024 Neutrophils/100 WBC (Bld) Automated neutrophil % . [facility] No Panel InformationOrdered By: PROVIDER TEMP on 12-05-2024 Estimated GFR (CKD-EPI) 31.961 mL/Min [facility] Creatinine Clearance (Chem 22.67 [facility] Nucleated erythrocytes [Pres ence] in Blood by Automated countOrdered By: PROVIDER TEMP on 12-05-2024 Nucleated RBC Auto Ql (Bld) Nucleated erythrocytes [Presence] in Blood by Automated count 0-0.5 [facility] Platelet mean volume Auto (B ld) [Entitic vol]Ordered By: PROVIDER TEMP on 12-05-2024 Platelet mean volume (Bld) [Entitic vol] Platelet mean volume [Entitic volume] in Blood by Automated count 6.3-10.7 [facility] Platelets Auto (Bld) [#/Vol] Ordered By: PROVIDER TEMP on 12-05-2024 Platelets (Bld) [#/Vol] Platelets [#/vol ume] in Blood by Automated count 150-450 [facility] Potassium [Moles/volume] in Serum or PlasmaOrdered By: PROVIDER TEMP on 12-05-2024 Potassium [Moles/Vol] Potassium [Moles/v olume] in Serum or Plasma 3.5-5.1 [facility] Protein [Mass/volume] in Ser um or PlasmaOrdered By: Bladimir Almonte on 12-05-2024 Protein [Mass/Vol] Protein [Mass/volume ] in Serum or Plasma 6.4-8.9 [facility] RBC Auto (Bld) [#/Vol]Ordere d By: PROVIDER TEMP on 12-05-2024 RBC (Bld) [#/Vol] Erythrocytes [#/volu me] in Blood by Automated count 3.60-5.00 [facility] Respiratory specimen influen za A virus, influenza B virus, respiratory syncytical virOrdered By: Jamar Rashid on 12-05-2024 SARS-CoV-2 (COVID-19) RNA LATRICE+probe Ql (Unsp spec) Respiratory specimen influenza A virus, influenza B virus, respiratory syncytical vir [facility] Serum or plasma albumin/glob ulin mass ratioOrdered By: Bladimir Almonte on 12-05-2024 Albumin/Globulin [Mass ratio] Serum or plasma albumin/globulin mass ratio [facility] Serum or plasma anion gap de terminationOrdered By: PROVIDER TEMP on 12-05-2024 Anion gap [Moles/Vol] Serum or plasma an ion gap determination 6.0-15.0 [facility] Serum or plasma non-glucuron idated bilirubin measurement (mass/volume)Ordered By: Bladimir Almonte on 12-05-2024 Bilirubin.indirect [Mass/Vol] Serum or plasma non-glucuronidated bilirubin measurement (mass/volume) [facility] Sodium [Moles/volume] in Ser um or PlasmaOrdered By: PROVIDER TEMP on 12-05-2024 Sodium [Moles/Vol] Sodium [Moles/volume ] in Serum or Plasma 136-145 [facility] Troponin I High Sensitivityo n 12-05-2024 Troponin I High Sensitivity <3 Normal 0-15 [facility] Comment on above: Result Comment: The Troponin units of report have been changed to meet the Chest Pain Accreditation requirement, element EC5.M1l2. Troponin units are changed from pg/ml to ng/L. Also, the decimal is removed and results are in whole numbers. PERFORMED BY: [facility] [address] [place] [address] PATHOLOGIST IT ENGINEER ANA CLARK M.D. Performed By: #### G LULS #### Point of Care testing , Troponin I High Sensitivity <3 Normal 0-15 [facility] Comment on above: Result Comment: The Troponin units of report have been changed to meet the Chest Pain Accreditation requirement, element EC5.M1l2. Troponin units are changed from pg/ml to ng/L. Also, the decimal is removed and results are in whole numbers. PERFORMED BY: [facility] [address] [place] [address] PATHOLOGIST IT ENGINEER ANA CLARK M.D. Performed By: #### H EPATIC, CK, HS TROP, CBC, BMP ####[facility] [id number] [place] [address] [facility] Troponin I.cardiac [Mass/vol ume] in Serum or Plasma by Detection limit <= 0.01 ng/Ordered By: Jamar Rashid on 12-05-2024 Troponin I.cardiac DL <= 0.01 ng/mL [Mass/Vol] Troponin I.cardiac [Mass/volume] in Serum or Plasma by Detection limit <= 0.01 ng/ 0-15 [facility] Comment on above: The Troponin units o f report have been changed to meet the Chest Pain Accreditation requirement, element EC5.M1l2. Troponin units are changed from pg/ml to ng/L. Also, the decimal is removed and results are in whole numbers. Urea nitrogen [Mass/volume] in Serum or PlasmaOrdered By: PROVIDER WESLEY on 12-05-2024 Urea nitrogen [Mass/Vol] Urea nitrogen [Mass/volume] in Serum or Plasma 04-21 [facility] WBC Auto (Bld) [#/Vol]Ordere d By: PROVIDER WESLEY on 12-05-2024 WBC (Bld) [#/Vol] Leukocytes [#/volume ] in Blood by Automated count High 3.8-11.6 [facility] X-ray reportOrdered By: Sher Cornejo on 12-05-2024 Study report [place] [id number] XRay Report Signed Patient: Daniela Raymundo MR#: [id number] : 1945 Acct:[id number] Age/Sex: 79 / F ADM Date: 5 Loc: ER Room: Type: PRE ER Attending Dr: Copies to: BRYAN OLSON~ Ordering Provider: BRYAN OLSON Date of Service: 12/05/24 XR/XR chest 2V*: Chest Pain Chest 2 views CLINICAL HISTORY: Left-sided chest pain radiating to left side of neck since last night. Shortness of breath with exertion. COMPARISON: None FINDINGS: Post CABG changes. Heart is normal in size. Questionable developing left upperlobe airspace disease. No pneumothorax pleural effusion or free air. XR/XR chest 2V* IMPRESSION: QUESTIONABLE DEVELOPING LEFT UPPER LOBE AIRSPACE DISEASE. REPEAT CHEST X-RAY AFTER THERAPY IS SUGGESTED TO ENSURE RESOLUTION. Impression dictated by: Edy Cornejo Jr., DZamzamOZamzam12/05/2024 1:45 PM Dictation Location: [place] [address] Transcribed By: [facility] 12/05/24 1345 Dictated By: Edy Cornejo Jr, DO 12/05/24 1344 Signed By: 12/05/24 1345 [facility] XR chest 2V*on 12-05-2024 XR chest 2V* [address] [address] XRay Report Signed Patient: Daniela Raymundo MR#: [id number] 2 : 1945 Acct:[id number] Age/Sex: 79 / F ADM Date: 12/05/24 Loc: ER Room: Type: PRE ER Attending Dr: Copies to: BRYAN OLSON Ordering Provider: BRYAN OLSON Date of Service: 12/05/24 XR/XR chest 2V*: Chest Pain Chest 2 views CLINICAL HISTORY: Left-sided chest pain radiating to left side of neck since last night. Shortness of breath with exertion. COMPARISON: None FINDINGS: Post CABG changes. Heart is normal in size. Questionable developing left upper lobe airspace disease. No pneumothorax pleural effusion or free air. XR/XR chest 2V* IMPRESSION: QUESTIONABLE DEVELOPING LEFT UPPER LOBE AIRSPACE DISEASE. REPEAT CHEST X-RAY AFTER THERAPY IS SUGGESTED TO ENSURE RESOLUTION. Impression dictated by: Edy Cornejo Jr., D.O.12/05/2024 1:45 PM Dictation Location: [facility]-22 Transcribed By: NATALY 12/05/24 1345 Dictated By: Edy Cornejo Jr, DO 12/05/24 1344 Signed By: 12/05/24 1345 Normal [facility] Ambulatory Visit Summaryon 1 11-07-2023 Ambulatory Visit Summary Ambulatory Visit Summary DANIELA RAYMUNDO :1945 Visit Date:09/06/2024 Ambulatory Visit Instructions Your Diagnosis Anxiety BMI 26.0-26.9,adult Over weight Former smoker Essential tremor Osteoporosis Hypothyroid Type 2 diabetes mellitus with hyperlipidemia Stage 3b chronic kidney disease (CKD) Unsteady gait Essential hypertension Your Care Team Attending Physician - Sonja Quezada MD Primary Care Physician - Sonja Quezada MD This Is Your Medications List Misc Prescription Misc Prescription Misc Prescription apixaban (Eliquis 5 mg oral tablet) aspirin clonazepam (ClonazePAM 0.5 mg Tab) esomeprazole (esomeprazole 40 mg Cap-EC) fluocinonide topical (fluocinonide Top 0.05% Crm 15 gram) fluticasone nasal (fluticasone Nasal 0.05 mg/inh Reed) furosemide (furosemide 40 mg Tab) levocetirizine (levocetirizine 5 mg oral tablet) levothyroxine (levothyroxine 75 mcg (0.075 mg) Tab) losartan (losartan 25 mg Tab) rosuvastatin (rosuvastatin 5 mg Tab) sitagliptin (Januvia 100 mg Tab) Procedures Performed Appendectomy, CABG x 3 - Coronary artery bypass grafts x 3, Cataracts, Cholecystectomy, Colonoscopy, Cryoablation, EGD (esophagogastroduodenoscop ic) 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 Discharge Vitals Temperature (Temporal Artery) 36.3 ???C Heart Rate (Peripheral) 66 Respiratory Rate 18 Blood Pressure 120/72 Height 157 cm Height 62 in Weight 66.1 kg Weight 145.725 lb BMI 26.82 What to do next Scheduled Follow-Up Appointments Thursday. 2024 1:15 PM EDT With: Damien GUTIERREZ, Sonja Good Where: [address] [address]- January. 2024 2:30 PM EDT With: Where: [address] [address]- Medications What How Much When Why Instructions Unchanged apixaban (Eliquis 5 mg oral tablet) 1 Tablets By Mouth 2 times a day Oral, 0 Refill(s) Unchanged aspirin See instructions 81 mg Oral 3 times a week Unchanged clonazepam (ClonazePAM 0.5 mg Tab) 1 Tablets By Mouth 3 times a day Unchanged esomeprazole (esomeprazole 40 mg Cap-EC) 1 Capsules By Mouth 2 times a day Oral, 0 Refill(s) Unchanged fluocinonide topical (fluocinonide Top 0.05% Crm 15 gram) 1 Application Topical 3 times a day DM type 2 without retinopathy BMI 25.0-25.9,adult Over weight Former smoker Unchanged fluticasone nasal (fluticasone Nasal 0.05 mg/ inh Reed) 2 Sprays Nasal Inhalation Every day Nasal, 0 Refill(s) Unchanged furosemide (furosemide 40 mg Tab) 1 Tablets By Mouth Every day Unknown, 0 Refill(s) Unchanged levocetirizine (levocetirizine 5 mg oral tablet) 1 Tablets By Mouth Once a day (in the evening) Unchanged levothyroxine (levothyroxine 75 mcg (0.075 mg) Tab) 1 Tablets By Mouth Every day Unchanged losartan (losartan 25 mg Tab) 1 Tablets By Mouth Every day Unknown, 0 Refill(s) Unchanged Misc Prescription 0 Potassium Gluconate 595 mg bottle reads Potassium 99mg (from 595 Potassium Gluconate) -takes 2 per day sometimes 4 per day Unchanged Misc Prescription 0 Magnesium Oxide- 400mg Patient states she takes 2 per day Unchanged Misc Prescription 0 Glucosamine Chondoitin Glucosamine 1500 mg Chondroitin 1200mg Sodium 125mg Potassium 194mg *patient states she takes 2 tabs per day Unchanged rosuvastatin (rosuvastatin 5 mg Tab) 1 Tablets By Mouth Every day Unchanged sitagliptin (Januvia 100 mg Tab) 1 Tablets By Mouth Every day Oral, 0 Refill(s) Allergies Alcohol Lipitor Zetia cetirizine Problems Ongoing - Any problem that you are currently receiving treatment for. Anxiety ASCVD (arteriosclerotic cardiovascular disease) Barretts esophagus Benign hypertension with chronic kidney disease, stage III Dermatitis Essential hypertension Essential tremor HLD (hyperlipidemia) Hx of coronary artery bypass surgery Hypothyroid Long-term current use of opiate analgesic drug Osteoporosis Stage 3b chronic kidney disease (CKD) Type 2 diabetes mellitus with hyperlipidemia Type 2 diabetes mellitus with stage 3b chronic kidney disease Unspecified macular degeneration Historical - Any problem that you are no longer receiving treatment for. DM type 2 without retinopathy Patient Survey You may receive a survey via text or e-mail asking about your office visit. Please share your experience with us by completing your survey. We appreciate your feedback and thank you for choosing us for your care. Normal [facility] Family Medicine Office/Clini c Noteon 09-06-2024 Family Medicine Office/Clinic Note Family Medicine Office/Clinic Note HPI Staff Daniela is an 79 year old female presenting for 6 week follow up anxiety ISAIAH changed meds ( needs new med consent today) Follow up for Mental Status: Medication adherence- Yes, takes medication as prescribed Medication refill needed: _ Suicidal thoughts-Not at this time Most recent SB: 9 Most recent PHQ: 0 Needs consent signed today UDS done + for BZO rest negative History of Present Illness Patient presents for follow-up of multiple concerns today. Patient was to follow-up on the clonazepam as we tried a different medication given that she was using 2 Xanax throughout the day and then 2 at night to help her sleep. Patient has been doing this for many years. Looking back in the [facility] has been over 2 years. Patient states when I switched her to clonazepam as I thought this would help with her tremor she was too fatigued and tired. Patient started breaking them in half but was still taking 2 of her Xanax at night that she had been storing away. I am concerned for the patient's medication usage but understand I need to help her with her symptoms. Patient states she is still having issues with her gait. Tried to discuss other causes for her tremor such as Parkinson's but patient states that she has had this tremor in her neck since she was 8 years old. Patient states she has been worked up by multiple neurologist and neither of them could understand what caused the tremor. Reviewed recent lab work and patient needs an A1c and a thyroid. Review of Systems PHQ Score Initial Depression Screen Score: 0 SCORE Physical Exam Vitals & Measurements T: 36.3 ???C(Temporal Artery) HR: 66(Peripheral) RR: 18 BP: 120/72 SpO2: 97% HT: 62 in HT: 157 cm WT: 66.1 kg WT: 145.725 lb BMI: 26.82 General: alert, no acute distress ENMT: oral mucosa moist, Cardiovascular: regular rate and rhythm, normal peripheral perfusion Respiratory: Lungs CTA, respirations non labored Extremities: no deformity, no trauma Neurological: oriented x 4, LOC appropriate for age, CN II-XII intact, motor strength equal & normal bilaterally, speech normal Abdomen: Soft, Nontender, Non-distended, + BS Assessment/Plan 1. Anxiety (F41.9: Anxiety disorder, unspecified) Will go back to the Xanax 0.5 to throughout the day and 2 at night. Will continue to monitor closely. Ordered: Body Mass Index (BMI) documented 3008F Current tobacco non-user 1036F Depression Screening Negative 3352F Drug Screen POC 24593 Influenza immunization administered or previously received 4274F Most recent diastolic blood pressure <80 mm Hg 3078F Patient screen for fall risk: no falls in last year or 1 fall with no injury in last year 1101F Systolic BP <130 mm Hg (Most Recent) 3074F 2. BMI 26.0-26.9,adult (Z68.26: Body mass index [BMI] 26.0-26.9, adult) BMI education added Ordered: Body Mass Index (BMI) documented 3008F Current tobacco non-user 1036F Depression Screening Negative 3352F Drug Screen POC 45198 Influenza immunization administered or previously received 4274F Most recent diastolic blood pressure <80 mm Hg 3078F Patient screen for fall risk: no falls in last year or 1 fall with no injury in last year 1101F Systolic BP <130 mm Hg (Most Recent) 3074F 3. Over weight (E66.3: Overweight) Diet and exercise advised Ordered: Body Mass Index (BMI) documented 3008F Current tobacco non-user 1036F Depression Screening Negative 3352F Drug Screen POC 34558 Influenza immunization administered or previously received 4274F Most recent diastolic blood pressure <80 mm Hg 3078F Patient screen for fall risk: no falls in last year or 1 fall with no injury in last year 1101F Systolic BP <130 mm Hg (Most Recent) 3074F 4. Former smoker (Z87.891: Personal history of nicotine dependence) Please continue not to smoke Ordered: Body Mass Index (BMI) documented 3008F Current tobacco non-user 1036F Depression Screening Negative 3352F Drug Screen POC 11089 Influenza immunization administered or previously received 4274F Most recent diastolic blood pressure <80 mm Hg 3078F Patient screen for fall risk: no falls in last year or 1 fall with no injury in last year 1101F Systolic BP <130 mm Hg (Most Recent) 3074F 5. Essential tremor (G25.0: Essential tremor) Will send to the [facility]. 6. Osteoporosis (M81.0: Age-related osteoporosis without current pathological fracture) Will do bisphosphonate to help. Advised calcium and vitamin D. 7. Hypothyroid (E03.9: Hypothyroidism, unspecified) Will repeat a TSH. No symptoms at this time. 8. Type 2 diabetes mellitus with hyperlipidemia (E11.69: Type 2 diabetes mellitus with other specified complication) Will order an A1c. Blood sugar random seems to be in control. 9. Stage 3b chronic kidney disease (CKD) (N18.32: Chronic kidney disease, stage 3b) Patient's last GFR was just into the 3 a. I do not know if this is a one-time increase in the GF (more content not included)... [facility] Comment on above: Result Comment: Elec tronically Signed By: Damien GUTIERREZ, Sonja Good\.br\Date and Time Signed: 09/06/24 13:38 EST ANES POSTPROC EVALon 024 ANES POSTPROC EVAL HNO ID: [id number] Author: MATTHEW OSBORN MD Service: ? Author Type: Anesthesiologist Type: Anesthesia Postprocedure Evaluation Filed: 08/04/2024 19:23 Note Text: POST ANESTHESIA EVALUATION NOTE : 1945 Procedure Summary Date: 08/04/24 Room / Location: Gastroenterology Anesthesia Start: 1455 Anesthesia Stop: 164 Procedure: EGD - THERAPEUTIC, EUS, OR TUBE INTERVENTIONS Diagnosis: Haji's esophagus with high grade dysplasia (Therapeutic procedure) Scheduled Providers: Norbert Dailey MD Responsible Provider: Matthew Osborn MD Anesthesia Type: general ASA Status: 4 Anesthesia Type: general Airway Type: ETT Last Vitals Vitals Value Taken Time BP 175/72 08/04/24 1712 Temp 36.3 ?C (97.3 ?F) 08/04/24 1641 HR SpO2 71 08/04/24 1719 Resp 18 08/04/24 1700 SpO2 94 % 08/04/24 1719 Vitals shown include unfiled device data. Post Anesthesia Patient Status Patient Evaluation: bedside. Anticipated Disposition: phase 2 then home. Neurological Status: aware and responsive. Pulmonary Status: breathing comfortably on room air Airway Control: returned to baseline unsupported. Cardiovascular Status: stable. Pain Management: clinically adequate Postoperative Hydration: acceptable. Intraoperative Events: no significant anesthesia events Post Operative Nausea/Vomiting Status: no significant post operative nausea or vomiting Recommendation: continue current plan of care and further care per PACU/ICU/floor team. Anesthesia Observations No notable events were associated with this procedure. Documented by Paulino Gaona SRNA 08/04/2024 4:44 PM EST SIGNATURE: Matthew Osborn MD PATIENT NAME: Daniela Raymundo DATE: August 04, 2024 TIME: 7:23 PM CSN: [id number] Normal [facility] ANES PRE-OPon 08-04-2024 ANES PRE-OP HNO ID: [id number] Author: MATTHEW OSBORN MD Service: ? Author Type: Anesthesiologist Type: Anesthesia Preprocedure Evaluation Filed: 08/04/2024 14:44 Note Text: ANESTHESIOLOGY DAY OF SURGERY NOTE : 1945 Procedure Information Date/Time: 08/04/24 1500 Scheduled providers: Norbert Dailey MD; Matthew Osborn MD Procedure: EGD - THERAPEUTIC, EUS, OR TUBE INTERVENTIONS Location: Gastroenterology Estimated body mass index is 24.37 kg/m? as calculated from the following: Height as of this encounter: 160 cm (5' 3 ). Weight as of this encounter: 62.4 kg (137 lb 9.6 oz). Most recent hematocrit and potassium results: Hematocrit 40.3 11/20/2022 Hematocrit (POCT) 48 07/31/2022 Potassium 4.3 11/20/2022 Potassium (POCT) 5.4 07/31/2022 Relevant Problems CARDIO (+) Atrial fibrillation (HCC) (+) Benign essential hypertension (+) CAD (coronary artery disease) (+) HTN (hypertension) (+) Mitral valve insufficiency ENDO (+) Diabetes mellitus, type 2 (HCC) (+) Hypothyroidism -RENAL (+) Stage 2 chronic kidney disease NEURO-PSYCH (+) History of TIA (transient ischemic attack) (+) Transient ischemic attack I - PHYSICAL EVALUATION AIRWAY Patient intubated: No. Tracheostomy tube not present Mallampati: II. TM distance: >3 FB. Neck ROM: full ROM without neurological symptoms. Mouth opening: adequate. Short neck: no. Thick neck: no II - ANESTHESIA PLAN ASA Score: 4 Anesthetic Plan: general Airway type: ETT NPO Status: adequate Beta Chloé Monitoring Plan Monitoring plan: standard ASA. Post Procedure Analgesic Plan Postoperative analgesic plan: parenteral or oral opioids and multimodal analgesia. Informed Consent Anesthetic risks, benefits, alternatives, personnel and consent discussed: yes. Patient / Responsible Alliance Party agrees to proceed: yes Patient / Surrogate agrees to blood products: Yes DNR status not reviewed with patient and/or family prior to surgery. Significant changes in the patient condition since the History and Physical, not otherwise documented in primary service progress note: no. Potential Anesthesia issues that may suggest increased risk of complications or contraindication to planned procedure: none. Vitals Value Taken Time BP 134/60 08/04/24 1406 Pulse 62 08/04/24 1406 Resp 18 08/04/24 1406 Temp 36.5 ?C (97.7 ?F) 08/04/24 1406 SpO2 94 % 08/04/24 1406 Outpatient Medications as of 08/04/2024 Medication Sig levothyroxine (SYNTHROID) 75 mcg tablet losartan (COZAAR) 25 mg tablet esomeprazole (NEXIUM) 40 mg capsule TAKE 1 CAPSULE TWICE DAILY metoprolol succinate ER (TOPROL XL) 50 mg 24 hr tablet Take 1 tablet by mouth once daily. (Patient not taking: Reported on 03/29/2024) Miscellaneous Medical Supply ([employer] SUPER[employer]OR [employer] CONTAINER) To crush pills, dissolve in water and take it Walker (ULTRA-LIGHT ROLLATOR) [facility] [place] and to prevent fall apixaban (ELIQUIS) 5 mg tab(s) Take 5 mg by mouth twice daily. aspirin, enteric coated (ASPIRIN, ENTERIC COATED) 81 mg EC tablet Take 81 mg by mouth three times a week. ALPRAZolam (XANAX) 0.5 mg tablet fluticasone (FLONASE) 50 mcg/actuation nasal spray furosemide (LASIX) 40 mg tablet ACCU-CHEK FASTCLIX LANCET DRUM lancets pitavastatin (LIVALO) 2 mg tablet Take 1 tablet by mouth once daily. SITagliptin (JANUVIA) 100 mg tablet Take 100 mg by mouth once daily. POTASSIUM ORAL Take 300 mg by mouth once daily. No current facility-administered medications on file as of 08/04/2024. I have interviewed and examined the patient. I have reviewed the medical record and/or the pre-anesthesia evaluation, pertinent labs, and test results. This contains updated information obtained within 48 hours of Surgery/Procedure. SIGNATURE: Matthew Osborn MD PATIENT NAME: Daniela Raymundo DATE: August 04, 2024 TIME: 2:43 PM CSN: [id number] [facility] EGD Study observation Narrat iveon 08-04-2024 [facility] Radiology Study observation (narrative) Jana Lieberman GLUCOSE, BLOOD (POC)on 08-04 Glucose [Mass/Vol] 111 mg/dL Abnormal 74 - 99 mg/dL [facility] Comment on above: Location:[place] [address] The Accu-Chek Inform II glucose meter has not been approved for testing on patients receiving intensive medical intervention or therapy and results from this point of care glucose test should not be used for patient management decisions in these cases. Inaccurate results may also occur from other interfering factors, such as N-acetylcysteine (blood concentrations of greater than 5mg/dL), galactose, extremes of hematocrit (<10 or >65), or high doses of ascorbic acid (vitamin C) greater than 3mg/dL. Consider alternate testing mechanisms (e.g. core lab, blood gas instrument) in the above situations. Interpretation and review of laboratory results Abnormal [facility] HISTORY PHYSICALon HISTORY PHYSICAL HNO ID: [id number] Author: JULIETH YOUNG MD Service: Gastroenterology Author Type: Fellow Type: H&P Filed: 08/04/2024 14:37 Note Text: HISTORY AND PHYSICAL Daniela Raymundo, 79 year old female Current history and physical on file: No Is a new History and Physical required for today's visit? Yes Indication for procedure: Haji's esophagus PROCEDURE(S) SCHEDULED FOR: EGD (Esophagogastroduodenoscop y) with or without biopsies, removal of polyps or lesions, dilation ( any means), treatment of bleeding ( any means), Barrx treatment of Sarthak's Esophagus, image tube placement or cryo therapy treatment based on clinical findings. BASELINE BEHAVIOR: Calm BASELINE ORIENTATION: A AND O x3 All medications and allergies reviewed: Yes Skin Assessment: Warm dry mucus membranes pink Airway/Respiratory Assessment: Airway: visualization of the uvula- Yes Mouth: opening greater than 2 fingerbreadths- Yes Neck: full range of motion- Yes No increased WOB. Cardiac Assessment: Regular rate and rhythm Abdominal Assessment: Abdomen soft, non-tender, no masses or organomegaly. Sedation Plan: Moderate Additional Comments: none Julieth Young MD [facility] NURSING PROGon 08-04-2024 NURSING PROG HNO ID: [id number] Author: MICHELLE PINO RN Service: Nursing Author Type: Registered Nurse Type: Nursing Progress Note Filed: 08/04/2024 16:48 Note Text: AMBULATORY PATIENT EDUCATION NOTE TOPIC: GI PROCEDURES: Esophagogastroduodenoscopy (EGD) with or without biopies based on clinical findings, removal of polyps or lesions READINESS TO LEARN INSTRUCTION PROVIDED TO: Patient, readness to learn accessed prior to procedure COGNITIVE ABILITY: Alert and oriented PTED MOTIVATION TO LEARN: Interested FAMILY SUPPORT: High - Very involved in pt care IPATIENT LEARNS BEST BY: Individual Instruction FACTORS AFFECTING LEARNING: None PHYSICAL LIMITATIONS AFFECTING LEARNING: None LEARNING RESPONSE METHOD OF INSTRUCTION: Individual instruction PATIENT / FAMILY RESPONSE: Verbalizes understanding of: WORSENING CONDITION-Signs and symptoms of a worsening condition that warrant a call to the physician FOLLOW-UP PLAN: Patient instructed to call with any further issues SUPPLEMENTAL MATERIAL: Procedure Discharge Instructions REFERRAL (RECOMMENDATION): None Electronically Signed By: Michelle Pino RN [facility] NURSING PROG HNO ID: [id number] Author: SULLY LARSON LPN Service: Nursing Author Type: LICENSED NURSE Type: Nursing Progress Note Filed: 08/04/2024 13:58 Note Text: PRE OP LEARNING ASSESSMENT PROCEDURE/SURGERY: GI PROCEDURES: EGD READINESS TO LEARN COGNITIVE ABILITY: Alert and oriented MOTIVATION TO LEARN: Eager Interested FAMILY SUPPORT: High - Very involved in pt care PATIENT LEARNS BEST BY: Individual Instruction Written Instruction - Hand-outs Verbal Instruction FACTORS AFFECTING LEARNING: None PHYSICAL LIMITATIONS AFFECTING LEARNING: None Electronically Signed By: Sully Larson LPN In Department: GASTROENTEROLOGY [facility] SURGICAL PATHOLOGYon 024 CASE REPORT [facility] Comment on above: Order Comment: Speci men Type: TISSUE SPECIMENOrdering Facility: [facility] Address: [address] [place] [address] Result Comment: Surg ica Pathology Report Case: [id number] Authorizing Provider: Norbert Dailey MD Collected: 08/04/2024 04:05 PM Ordering Location: Gastroenterology Received: 08/04/2024 08:00 PM Pathologist: Kenneth Rivera MD Specimens: A) - Esophagus, Biopsy, ge junction B) - Esophagus, Biopsy, esophagus @25 Performed By: #### S ####GANESH LABORATORYIA [id number] [address] OF [facility] FINAL DIAGNOSIS Normal [facility] Comment on above: Order Comment: Speci men Type: TISSUE SPECIMENOrdering Facility: [facility] Address: [address] [place] [address] Result Comment: A. G astroesophageal junction, biopsy: - Haji's esophagus with low-grade dysplasia. B. Esophagus, biopsy at 25 cm: - Haji's esophagus, negative for dysplasia. - Squamous mucosa with reactive epithelial changes. JEL 08/05/2024 Performed By: #### S ####GANESH LABORATORYCLIA [id number] [address] OF [facility] FINAL PERFORMING LAB Normal [facility] Comment on above: Order Comment: Speci men Type: TISSUE SPECIMENOrdering Facility: [facility] Address: [address] [place] [address] Result Comment: Diag nostic interpretation performed at [facility], [address] [place] [address] CLIA# [id number] Segmental Paving Supervisor: Jose Luis Babin M.D. Performed By: #### S ####GANESH LABORATORYCLIA [id number] [address] GROSS DESCRIPTION Normal [facility] Comment on above: Order Comment: Speci men Type: TISSUE SPECIMENOrdering Facility: [facility] Address: [address] [place] [address] Result Comment: A. E sophagus, Biopsy Received in formalin is one piece of bal-pink, soft tissue measuring 0.3 x 0.2 x 0.1 cm. Totally submitted in one cassette. B. Esophagus, Biopsy Received in formalin is one piece of bal-pink, soft tissue measuring 0.3 x 0.2 x 0.1 cm. Totally submitted in one cassette. DB August 04, 2024 9:21 PM Gross examination performed at [facility], [address] [place] [address] Performed By: #### S ####[facility] LABORATORYCLIA [id number] [place] [id number] [place] CNPNisha 07-28-2024 CNPN Telephone ([facility]) -- DANIELA RAYMUNDO ([id number]) 1945 F Date Time Provider Department 07/28/24 ALEYDA VILA During your visit today, we recorded the following information about you: Aleyda Vila RN 07/28/2024 9:13 AM Signed GI Pre-Procedure Spoke with patient: Left message- Attempted to reach the patient at the contact number that they provided [phone] (home) . Unable to speak with patient so without identifying the patient the following information was left on their voice mail: Date of procedure, location and report time A message was left informing the patient/patient insurance claim representative they must have a responsible adult accompany them to their procedure; and remain in the endoscopy area until they are discharged. Failure to have a responsible adult accompany the patient to their procedure appointment prevents the use of sedation or anesthesia for their procedure; and can result in cancellation of the procedure NPO instructions were reviewed. Instructions to contact their primary care provider regarding their medications and which medications to stop in preparation for their procedure Instructions to completely read and follow the written instructions that they recieved regarding their procedure. Number to call with questions or concerns [phone] Number to call to cancel their procedure [phone] ALEYDA Vila RN Allergies As of Date: 07/28/2024 Noted Allergy Reaction ALCOHOL 06/17/2019 4 - Hives ZETIA (EZETIMIBE) 06/17/2019 14 - Other: See Comments Comments: Leg cramps. Date Reviewed: 06/13/2024 Reviewed by: Wayne Geronimo, RN - Fully Assessed Reason for Visit: Appointment Confirmation [8100] Prescriptions as of 07/28/2024 - esomeprazole (NEXIUM) 40 mg capsule TAKE 1 CAPSULE TWICE DAILY - metoprolol succinate ER (TOPROL XL) 50 mg 24 hr tablet Take 1 tablet by mouth once daily. 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 - aspirin, enteric coated (ASPIRIN, ENTERIC COATED) 81 mg EC tablet Take 81 mg by mouth three times a week. - ALPRAZolam (XANAX) 0.5 mg tablet - fluticasone (FLONASE) 50 mcg/actuation nasal spray - furosemide (LASIX) 40 mg tablet - ACCU-CHEK FASTCLIX LANCET DRUM lancets - levothyroxine (SYNTHROID) 75 mcg tablet - losartan (COZAAR) 25 mg tablet - pitavastatin (LIVALO) 2 mg tablet Take 1 tablet by mouth once daily. - SITagliptin (JANUVIA) 100 mg tablet Take 100 mg by mouth once daily. - POTASSIUM ORAL Take 300 mg by mouth once daily. Problem List As Of Date 07/28/2024 Noted Resolved CAD (coronary artery disease) [I25.10] 06/18/2019 HTN (hypertension) [I10] 06/18/2019 Diabetes mellitus, type 2 (HCC) [E11.9] 06/18/2019 Atrial fibrillation (HCC) [I48.91] 09/05/2021 History of TIA (transient ischemic attack) [Z86*09/05/2021 Haji's syndrome [K22.70] 09/05/2021 Hypothyroidism [E03.9] 09/05/2021 Benign essential hypertension [I10] 04/07/2022 Essential tremor [G25.0] 04/07/2022 Generalized anxiety disorder [F41.1] 04/07/2022 Insomnia [G47.00] 04/07/2022 Mitral valve insufficiency [I34.0] 04/07/2022 Mixed hyperlipidemia [E78.2] 04/07/2022 Stage 2 chronic kidney disease [N18.2] 04/07/2022 Transient ischemic attack [G45.9] 04/07/2022 Hjai's esophagus with high grade dysplasia [*07/31/2022 Observation after surgery [Z48.89] 07/31/2022 Haji's esophagus determined by biopsy [K22.7*07/31/2022 Acute respiratory failure with hypoxia and hype*07/31/2022 08/05/2022 Pneumonia due to infectious organism [J18.9] 07/31/2022 08/05/2022 Esophageal tear [S11.21XA] 08/01/2022 Encounter Status:Closed by ALEYDA VILA on 07/28/24 [facility] Mikala 07-18-[address] [facility] Telephone (DDQ) -- BREANNEDANIELA ([id number]) 1945 F Date Time Provider Department 07/18/24 NORBERT DAILEY During your visit today, we recorded the following information about you: Carmen Caballero 07/18/2024 4:04 PM Signed Patient called and stated that she has been given a new prescription Clonazepam 0.5 ml 3 times a day. Patient would like to know if she should wait until after her procedure on 08/03 to start taking it, due to not knowing if she will have any side- effects. Please review and advise Suzi Valerio LPN 07/19/2024 11:50 AM Signed Discussed medication questions with Daniela. She feels more comfortable continuing with Xanax until after her procedure as she knows how she feels on Xanax. I discussed that this was ok with us. She will contact with any other questions. Suzi Garcia LPN Allergies As of Date: 07/18/2024 Noted Allergy Reaction ALCOHOL 06/17/2019 4 - Hives ZETIA (EZETIMIBE) 06/17/2019 14 - Other: See Comments Comments: Leg cramps. Date Reviewed: 06/13/2024 Reviewed by: Wayne Geronimo, RN - Fully Assessed Reason for Visit: Patient Question [5806] Prescriptions as of 07/19/2024 - esomeprazole (NEXIUM) 40 mg capsule TAKE 1 CAPSULE TWICE DAILY - metoprolol succinate ER (TOPROL XL) 50 mg 24 hr tablet Take 1 tablet by mouth once daily. 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 - aspirin, enteric coated (ASPIRIN, ENTERIC COATED) 81 mg EC tablet Take 81 mg by mouth three times a week. - ALPRAZolam (XANAX) 0.5 mg tablet - fluticasone (FLONASE) 50 mcg/actuation nasal spray - furosemide (LASIX) 40 mg tablet - ACCU-CHEK FASTCLIX LANCET DRUM lancets - levothyroxine (SYNTHROID) 75 mcg tablet - losartan (COZAAR) 25 mg tablet - pitavastatin (LIVALO) 2 mg tablet Take 1 tablet by mouth once daily. - SITagliptin (JANUVIA) 100 mg tablet Take 100 mg by mouth once daily. - POTASSIUM ORAL Take 300 mg by mouth once daily. 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] 09/05/2021 Hypothyroidism [E03.9] 09/05/2021 Benign essential hypertension [I10] 04/07/2022 Essential tremor [G25.0] 04/07/2022 Generalized anxiety disorder [F41.1] 04/07/2022 Insomnia [G47.00] 04/07/2022 Mitral valve insufficiency [I34.0] 04/07/2022 Mixed hyperlipidemia [E78.2] 04/07/2022 Stage 2 chronic kidney disease [N18.2] 04/07/2022 Transient ischemic attack [G45.9] 04/07/2022 Haji's esophagus with high grade dysplasia [*07/31/2022 Observation after surgery [Z48.89] 07/31/2022 Haji's esophagus determined by biopsy [K22.7*07/31/2022 Acute respiratory failure with hypoxia and hype*07/31/2022 08/05/2022 Pneumonia due to infectious organism [J18.9] 07/31/2022 08/05/2022 Esophageal tear [S11.21XA] 08/01/2022 Encounter Status:Closed by SANGITASUZI on 07/19/24 [facility] Ambulatory Visit Summaryon 1 Ambulatory Visit Summary Ambulatory Visit Summary DANIELA RAYMUNDO :1945 Visit Date:07/05/2024 Ambulatory Visit Instructions Your Diagnosis Type 2 diabetes mellitus with hyperlipidemia ASCVD (arteriosclerotic cardiovascular disease) Stage 3b chronic kidney disease (CKD), Chronic kidney disease, stage 3b Essential hypertension Unspecified macular degeneration Type 2 diabetes mellitus with stage 3b chronic kidney disease Benign hypertension with chronic kidney disease, stage III BMI 26.0-26.9,adult Over weight Former smoker Essential tremor Chronic kidney disease, stage 3 unspecified Hyperlipidemia, unspecified Your Care Team Attending Physician - Sonja Quezada MD Primary Care Physician - Sonja Quezada MD This Is Your Medications List Misc Prescription Misc Prescription Misc Prescription alprazolam (alprazolam 0.5 mg Tab) apixaban (Eliquis 5 mg oral tablet) aspirin esomeprazole (esomeprazole 40 mg Cap-EC) fluocinonide topical (fluocinonide Top 0.05% Crm 15 gram) fluticasone nasal (fluticasone Nasal 0.05 mg/inh Reed) furosemide (furosemide 40 mg Tab) levocetirizine (levocetirizine 5 mg oral tablet) levothyroxine (levothyroxine 75 mcg (0.075 mg) Tab) losartan (losartan 25 mg Tab) rosuvastatin (rosuvastatin 5 mg Tab) sitagliptin (Januvia 100 mg Tab) Procedures Performed Appendectomy, CABG x 3 - Coronary artery bypass grafts x 3, Cataracts, Cholecystectomy, Colonoscopy, Cryoablation, EGD (esophagogastroduodenoscop ic) 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 Discharge Vitals Temperature (Temporal Artery) 36.6 ?C Heart Rate (Peripheral) 62 Respiratory Rate 16 Blood Pressure 120/68 Height 157 cm Height 62 in Weight 65.3 kg Weight 143.66 lb BMI 26.49 What to do next Scheduled Follow-Up Appointments Thursday 1:00 PM EST With: Damien GUTIERREZ, Sonja Good Where: [address] [address]24 2:30 PM EDT With: Where: [address] [address]- Medications What How Much When Why Instructions Unchanged alprazolam (alprazolam 0.5 mg Tab) 1 Tablets By Mouth 4 times a day Unchanged apixaban (Eliquis 5 mg oral tablet) 1 Tablets By Mouth 2 times a day Oral, 0 Refill(s) Unchanged aspirin See instructions 81 mg Oral 3 times a week Unchanged esomeprazole (esomeprazole 40 mg Cap-EC) 1 Capsules By Mouth 2 times a day Oral, 0 Refill(s) Unchanged fluocinonide topical (fluocinonide Top 0.05% Crm 15 gram) 1 Application Topical 3 times a day DM type 2 without retinopathy BMI 25.0-25.9,adult Over weight Former smoker Unchanged fluticasone nasal (fluticasone Nasal 0.05 mg/ inh Reed) 2 Sprays Nasal Inhalation Every day Nasal, 0 Refill(s) Unchanged furosemide (furosemide 40 mg Tab) 1 Tablets By Mouth Every day Unknown, 0 Refill(s) Unchanged levocetirizine (levocetirizine 5 mg oral tablet) 1 Tablets By Mouth Once a day (in the evening) Unchanged levothyroxine (levothyroxine 75 mcg (0.075 mg) Tab) 1 Tablets By Mouth Every day Unchanged losartan (losartan 25 mg Tab) 1 Tablets By Mouth Every day Unknown, 0 Refill(s) Unchanged Misc Prescription 0 Potassium Gluconate 595 mg bottle reads Potassium 99mg (from 595 Potassium Gluconate) -takes 2 per day sometimes 4 per day Unchanged Misc Prescription 0 Magnesium Oxide- 400mg Patient states she takes 2 per day Unchanged Misc Prescription 0 Glucosamine Chondoitin Glucosamine 1500 mg Chondroitin 1200mg Sodium 125mg Potassium 194mg *patient states she takes 2 tabs per day Unchanged rosuvastatin (rosuvastatin 5 mg Tab) 1 Tablets By Mouth Every day Unchanged sitagliptin (Januvia 100 mg Tab) 1 Tablets By Mouth Every day Oral, 0 Refill(s) Allergies Alcohol Lipitor Zetia cetirizine Problems Ongoing - Any problem that you are currently receiving treatment for. Anxiety ASCVD (arteriosclerotic cardiovascular disease) Barretts esophagus Benign hypertension with chronic kidney disease, stage III Dermatitis Essential hypertension Essential tremor HLD (hyperlipidemia) Hx of coronary artery bypass surgery Hypothyroid Osteoporosis Stage 3b chronic kidney disease (CKD) Type 2 diabetes mellitus with hyperlipidemia Type 2 diabetes mellitus with stage 3b chronic kidney disease Unspecified macular degeneration Historical - Any problem that you are no longer receiving treatment for. DM type 2 without retinopathy Patient Survey You may receive a survey via text or e-mail asking about your office visit. Please share your experience with us by completing your survey. We appreciate your feedback and thank you for choosing us for your care. [facility] Family Medicine Office/Clini c Noteon 07-05-2024 Family Medicine Office/Clinic Note Family Medicine Office/Clinic Note Chief Complaint The patient presents for management of essential tremor. HPI Staff Daniela is an 79 year old female presenting for 3 month follow up DM, ASCVD, CKD Do you have any of the following symptoms? Foot Exam: never had one Eye Exam: end May 2024 Last A1C: Hgb A1C %: 6.4 % High (01/12/24 13:51:00) Statin: none flu: UTD 06/30/24 questions/concerns: none just doesn't like how she can't get her xanax rxed and then have 5 refills on it worried she will run out before she can get the refill. Tried to explain the law on controlled substances History of Present Illness The patient is an 79-year-old female presenting for the management of essential tremor. This condition has been previously diagnosed by a neurologist as essential tremor, rather than Parkinson's disease, which the patient expresses relief about. The tremors have persisted despite her attempts to manage them. The patient currently takes Xanax (alprazolam), but she reports that it provides limited control over the tremors. The use of Xanax is primarily for sleep, as the patient takes two tablets at bedtime; however, she acknowledges that Xanax has a very short duration of effect. She has not been given any other recommendations or medications to ameliorate the tremors. In addition, the patient has a history of arteriosclerotic cardiovascular disease, hypertension, and chronic kidney disease stage 3b. She also notes a history of surgery every 8 to 10 weeks for Haji's esophagus at the [facility], where anesthesia management has been complicated by the use of benzodiazepines like Xanax. Her medical team has needed to adjust the anesthetic doses due to her regular benzodiazepine use. During this visit, the tremors are causing significant concern, and the patient is interested in exploring alternative long-acting medications to provide better control over this condition. Review of Systems PHQ Score Initial Depression Screen Score: 2 SCORE - Neurological: Reports tremors - Musculoskeletal: Denies joint pain - Psychological: Reports anxiety related to tremors Physical Exam Vitals & Measurements T: 36.6 ?C(Temporal Artery) HR: 62(Peripheral) RR: 16 BP: 120/68 SpO2: 96% HT: 62 in HT: 157 cm WT: 65.3 kg WT: 143.66 lb BMI: 26.49 General: alert, no acute distress ENMT: oral mucosa moist Cardiovascular: Regular rate and rhythm, normal peripheral perfusion Respiratory: Lungs clear to auscultation, respirations non labored Extremities: no deformity, no trauma Neurological: oriented x 4, level of consciousness appropriate for age, CN II-XII intact, motor strength equal & normal bilaterally, speech normal, essential tremor noted Abdomen: Soft, Non-tender, Non-distended, + Bowel sounds Assessment/Plan 1. Type 2 diabetes mellitus with hyperlipidemia (E11.69: Type 2 diabetes mellitus with other specified complication) Well controlled. NO issues at this time Ordered: Body Mass Index (BMI) documented 3008F Current tobacco non-user 1036F Depression Screening Negative 3352F Influenza immunization administered or previously received 4274F Most recent diastolic blood pressure <80 mm Hg 3078F Patient screen for fall risk: no falls in last year or 1 fall with no injury in last year 1101F Systolic BP <130 mm Hg (Most Recent) 3074F 2. ASCVD (arteriosclerotic cardiovascular disease) (I25.10: Atherosclerotic heart disease of chilkat coronary artery without angina pectoris) The current visit did not specifically focus on ASCVD management. Emphasize maintenance of cardiovascular health through lifestyle modifications and adherence to prescribed cardiac medications. Regular cardiovascular assessment and monitoring are necessary to preclude potential complications. Ordered: Body Mass Index (BMI) documented 3008F Current tobacco non-user 1036F Depression Screening Negative 3352F Influenza immunization administered or previously received 4274F Most recent diastolic blood pressure <80 mm Hg 3078F Patient screen for fall risk: no falls in last year or 1 fall with no injury in last year 1101F Systolic BP <130 mm Hg (Most Recent) 3074F 3. Stage 3b chronic kidney disease (CKD) (N18.32: Chronic kidney disease, stage 3b) Stable Ordered: Body Mass Index (BMI) documented 3008F Current tobacco non-user 1036F Depression Screening Negative 3352F Influenza immunization administered or previously received 4274F Most recent diastolic blood pressure <80 mm Hg 3078F Patient screen for fall risk: no falls in last year or 1 fall with no injury in last year 1101F Systolic BP <130 mm Hg (Most Recent) 3074F 4. Essential hypertension (I10: Essential (primary) hypertension) Blood pressure management is adequate, and patient reports stable control. Continue monitoring during follow-ups and encouraging adherence to antihypertensive regimen. She expresses concerns about potential stressors impacting her condition, and she should be r (more content not included)... [facility] Comment on above: Result Comment: Elec tronically Signed By: Damien GUTIERREZ, Sonja Good\.br\Date and Time Signed: 07/05/24 14:30 EDT SURGICAL PATHOLOGYOrdered By : Velma Guadalupe on 06-14-2024 Case Report Surgical Pathology R eport Case: [id number] Authorizing Provider: Norbert Dailey MD Collected: 06/13/2024 03:15 PM Ordering Location: Gastroenterology Received: 06/13/2024 06:39 PM Pathologist: Velma Guadalupe MD Specimens: A) - Esophagus, Biopsy, esophagus at 32cm r/o barett's, hx of barett's B) - Esophagus, Biopsy, esophagus at 25cm r/o barett's, hx of haji's C) - Esophagus, Biopsy, esophagus at 16cm r/o barett's, hx of barett's [facility] Work Phone: Diagnosis Comment w5lvyIAoTLSubYTrVPnf Mlxhbn IbPYUxvPXbK8GoheizZYabJT7c TJ5qhYyycSZoxSRmUQDdBbJjy4 vqn475qURlr2yiBLKLojsgfAu7 dHbrI24hf8L5EvbwS63hlUPrYJ E7MBPzBILtlWHwDBHiISP1GCAc jDJsI6fnPPYvFA4cegabFJimOU osZVLhyND5JZGexJAnM1MjWLEa DXndMDWkdwz5FoScXr1rtQZhoV cyMFxwYXJkXHBsYWluXGZzMjAg DR9sCHMpyVRzJ7ZkWIJ4GBAkry D0oKT8RAWtBUueVNV8THUzNPNl MGR2WXxylAS8iI3tu0t2QKU0DL GaAbAOsANmBWQqDT4dCNRfPeYV UZEoskKrlMsbh5m1nWBskNGnpx 6vmVAvM01tT0QtepCfT0AhDIIk cn0= [facility] Work Phone: FINAL DIAGNOSIS q0nngZThSGBqhXByBAdm Mlxhbn SrMWIyyMIiK3EfztzkLWkoDX8k XF0auWstqBJmmLHzHKJdKvYgw4 cle240qXDac5hxIZBBxctebFi9 hEmmH36jj5X4DqugS69atZKdVS X7RKEuFRLhpCLqQNEqSVY9SHVi dGZnN3laWIDjYS6mtfyjUIafGP ymIKRqfAP0UEBlaQYpD9ZbRZZq ETodPNIfcoc4IfXvWx4wtHAeuB cyMFxwYXJkXHBsYWluXGZzMjAg QS7eZODse8VhAAs9xjcyZvdozS J1FBH2IFJsXOSkMgysSZYiKEAA BZGrMSS8H4BzMLAgwIsaC8CgVU cqsCognU13HElzUGQdZCN9w3Lz DPNqQRupr6CtSGKreX0iwqUyBX FuayafGPYzNo9xBCOqc3LwADv2 hjdeMceoyDQ2HWE0WHW9FXPaIa mvBHTiNOPARWXsAMF4L5QaDEAp bIcqU3GjEuPqrsSpedrgDF5zJE BvZiBkeXNwbGFzaWEuXHBhclxw IXQwXg5hQIIoa7CwZLb2biwwBz itkRN1LBQ1TIK9QPNuPnkjWUTy ODSNMHYbJAN7X4HkPOYqmRggK0 XgCrAthmPplbzaQS5iQZRgYpEs eXNwbGFzaWEuXHBhcn0= [facility] Work Phone: Gross Description w9emdPYeEJEtlIWFRHY5 MDFcYW 5gmEqlsTc6oMdzPPMdmvQ8ySUk VYwmu0glFAT4d4zzegYIEcijQU RpLV8pYTwlIKCeXC0oNaJkYNVu ZmYxXHBhcGVydzEyMjQwXHBhcG LeuLJ0BYFmSH5edgkcKBnbYBhm RAFzuaU9UKAilCFpG6DjXQYyAD 1aedeeDEA8PLJWEwlnYx9gsJKg bHtcZjFcZmNoYXJzZXQwXGZzd2 xqijROiptihYn0eZ5SYOZuS3Sm FT2Ta2maQYAxrJJjBPY4AQpef8 okMAbvMWS5VRZcMGCnVGFkZP3Q BiPfTOzxBFbqLxQ6CbQ9TDd3ID EVGVYgKSD0Kfq2ZkaxNUv7RIqa XFxuaCBcXHQgMSBcXGZsIFxcbm V5u0fqLIFtyDQbFLE6FTfjo9tc YRqtMIM9GAEmJlCrGYAgCT6RGw GjBIddKQuoNpM7SxX3DQf7DXOB TgAzDvRjWBmeDXI5MoEwEUp2CW v5SIcPYcJjWsc4BOaeCJOaWkP2 NDQzMiBcXHQgMiBcXHNzIDMgXF lowNIhHG2luLczSANeSP4YCQAb ORpwOKHdAeLwJV6iSUVtpIoqA3 BeRCSIyY3sz6xbeHBtN1qqyNSt SQ7QOLTeseRdMYsgmJgslP5kvZ WdG9lrTfDmEjqpdXgqNuSbwWLo YzEgDQpcbHRycGFyXHNhMzBcZX MqR4fyOFTmFL0DKNVrJaVkFnPc MZv9DLSfdB8tAr0glJTarT4oID LsBXU2abEbiHUfYLLfu2CjlAYa FWAwx5M0TDGcd6O3PJWlQ8pyAC szqJsbLvW5koWbOkEhiJYqLgAj vXHmYsZpI42gFCFzcVVntFgwj4 CbeCt7yKVjGLtsAD2pDQImUUPs EWR5HE1CAyuznKajCgQbiCLaYb L6NRUewUJdHTU1KJ7uvGuqMTGa HNm1QSbiCRRbQ7JcH2XzTEahOf PgNFhoUZJqPSXuENlzMWCmE4AW XNCzYlJdHYApThQuBPb3NJo1KZ 3LZbDcBJX3BKY8MHk3RwCuWFv0 GNkcCX0TVSAzXbZ0MBX8GQT0BK A8YUZlPMxshWIoBHbsf9QrTxVk SYQbELkyxnA6QIEblpSzc3NkIE KnWLVtC5aqFfQcHJUXUsqexaGv SROxMTRkm4LjUFd8qdbnSqtjkS K2DANyjmQXXxniKQPiTY8PVUZg GXdaRUj2drZbVENpCgYbRLNaK3 3is3CFq9MsNG6HPBb2jbUrwyfs IvCeXWLrrQZLz8FkQIxuAGKfJF VrlOMJm1ZxSSGHByreslVnLUHz Q2LjkfAqZVqaXSRfhz3fuKtuQY YmDPW1h83hrIlzC4MxBG6iFNLl wo67tMk3WNF5tvQ7TE8esVepea ols74toWP6jCCygGFnAGjenjRk CTCiihuhbH5tOJ60IGshHX3cRU lzDT4vEUJvJlRAn1UzgZy1UDQ7 Mj8xqQSqRCJlkuKdnvFiK6Rfw5 E7dPEoRUndMITxB29lq0KZg8Hq k2xihPkri3ZlcXXuFQ3akUSyCC 6Qm3joCLLgdYXqEXI7KRzpp4ba HTucSJH8GEEkNvJsHSDuUK9MCn LnTXfaHTyrUdX0YvQ4LAo4GZEV RwDdGfIxTIrhVLV0DvAoEVp6BA h7FClWLwMbSjf8MSrmXIS3RCT3 NDQzMiBcXHQgMiBcXHNzIDMgXF jpsHLmCB8rqIyxCYYcZVUnBSQ8 GZKgzVWMc0RlFFNjGAljIsUhDp NUWgRWc72uuREaiZZrPWChn1Ei eVxwYXIgDQpccGFyZCANClxwbG FpblxsdHJjaFxmczIyXGVwaWNO JMP8KS8nRWTBCsdlnLRyHUZbv4 IzMFxlcGljWHNiMzAgDQpcZnMy WAORDHGkzGQlMMPuadEcf3UhJW wensLjxoOensHsvMjfS3Zbd5Zd zJOtXDUiv7X0QBZlh7O9BQXjPC NbnDSkbhuwWK00WSecVQ5rWYdc HJ3wKQRuImZUv5MhpEl7ASQ4Bg 5dwFSpQHSdebXrsoZvE4Xps4U9 dGUuIFxwYXIgDQpccGFyZFxsdH MbSHUlEWcjqCFtLT5IIGInW9Fj qVCwBuUoPIV6JDAbQWP2XFb5HV UyYF3kuZKfNL4VQBQxbhVIEczs YKReQXNpxCUNv4PkFTYBHvveh4 SqIQH9NN1dsqG9qT7cHZCbnwXe md1xBEGhxZBMiJA1DRhbazLhA6 xtrflrEXV9BQZcKNJ5O5cuCIDZ wlYcUUDRkWR3DOgjezKlJB2RYB M7IWa2NTnuZBAeG67nq0DWr0Yy w0dnhUwxr9NihHOiMS04MSDmoB UjTFW8BG3qtQzxYWWhUPjlnBYr XRXXFfcimrFgAE0OnD== [facility] Work Phone: Performing Lab u8cckSSmXHZmaASyZjGr MDAwXG Qbu5yaYWEmjOUjRdOvPxUtHkNo EafzwGTcBVTqLlQck4bkl411aH Uaq4ezLPRxWgV5oNOiWFLowUMq C524FPXlWAept2pll1VeWTVmqE Alb9G0XZSTrkmckOd8jZgmV64u r3Y6QpovN0mnVJOlIDEcR2BcMW 3oDTCpUws9WQD9MUL4ODKsBUUw Y6NyEQ6qXWAquSMeGTh4q2atlD ezTHKrWIY4h7dvUTnxhqStDU2c bl0gzRa3x3fipwCpLLSqBLKdaA KRYELiO0HstPvwDm3aeCg1qMwy SzlcTFD0Hcw6ZC7yom98kla5kE qtPATuzstmTtW5VAdiLXZxbjkr BFi7HVzjAQKzgNO8VIYmfUWiO6 OzICFqTX0sivz1DXS2TFgxNUDx RhU7PKOcdNKmURVscKsvOOclw6 49XFZ4VqGjOF1kT5Mzv1C4yV8i tBQtCDFnzHNmDtQdSZXqnq6aqY ZmRCucu2HiZJY5gdF4cYMdlGLv HUIiDV94Bikta2BsEjvpz4ZhX9 0xoCJ0DBqol3llTO5bOrY7kbAt RGtru7xecR8wLjJ6ZHqyFU1gMO 0aWJOqcO2ldphfEPOgMhYbelaq JXAbuOznbdXvNl7qsRngIWH7IZ baX8ctjZ2tFvK0YRzsN8lgfV9j SCp3GUwvpSM2SDAxkR6qLZ5lep uni4vxMFujTSaaVVAkfmM4lnM5 MSVwrGWyZ0ShsO2vZQCiAI9jtq blz4mtQJN6EErvFFErRKC8OoEo OMFgx8Omucp5HpUkk2DdfUMbVG svY42fc414XPOnvmMoY2nzgDRf lajarHAkbeqlBMkohyL9VJAmAT BsYWluXGYxXGZzMjJcbGFuZzEw MzNcaGljaFxmMVxkYmNoXGYxXG wlZ3swKoYbSxJvBoTQeXSvle5g aMnwVQjgmZZqiEVvmWV2bD6aOG FgcgTnte6aKCWfnFKNxTA1HGgf meNoT0fxnregBNEegEDkEFSvcX 05NZIJp0LyjCOmpQzvYgEoOVVv NMWuehUhVNkfJ1BogmLrc7FpzD udWQf0ekLXDSK2VYHgQcWsGEPR DFqNSoJaOeTuWnP8OjVqQYQbzl xwYXJccGFyZFxwbGFpblxmMFxm fpN4QVQjEEclSEVaPARoQoMwfU FuZzEwMzNcaGljaFxmMVxkYmNo FHCiZYzcT3haMqGoH4HbYEGdQd XtzNOkC6eaEXVof1EzsF1dfJFe xNwmgA3fZvFeBgHvMgqaTJ1hTB SqN9hbiQGvKQThVKDpH5ykWfWv oI7snMyhZNomczQnZKBtkbXkbU 6gDoSGELKbrOkfA2C0pbOlrEAt LCBNLkQuXHBhcn0= [facility] Work Phone: [facility] Work Phone: ANES POSTPROC EVALon 024 ANES POSTPROC EVAL HNO ID: [id number] Author: RISHI VEE MD Service: ? Author Type: Anesthesiologist Type: Anesthesia Postprocedure Evaluation Filed: 06/13/2024 16:01 Note Text: POST ANESTHESIA EVALUATION NOTE : 1945 Procedure Summary Date: 06/13/24 Room / Location: Gastroenterology Anesthesia Start: 1440 Anesthesia Stop: 1547 Procedure: EGD - THERAPEUTIC, EUS, OR TUBE INTERVENTIONS Diagnosis: Haji's esophagus with low grade dysplasia (Follow-up of previous L Nitro cryotherapy of Haji's esophagus) Scheduled Providers: Norbert Dailey MD; Rishi Vee MD; Temo Davis APRN.LEVEE SUPERINTENDENT Responsible Provider: Rishi Vee MD Anesthesia Type: general ASA Status: 4 Anesthesia Type: general Airway Type: ETT Last Vitals Vitals Value Taken Time BP 175/78 06/13/24 1550 Temp 36.4 ?C (97.5 ?F) 06/13/24 1546 Pulse 66 06/13/24 1559 Resp 16 06/13/24 1550 SpO2 98 % 06/13/24 1559 Vitals shown include unfiled device data. Post Anesthesia Patient Status Patient Evaluation: PACU. PACU/ICU Patient Condition: stable. Neurological Status: aware and responsive. Pulmonary Status: breathing comfortably on supplemental oxygen Airway Control: returned to baseline unsupported. Cardiovascular Status: stable. Pain Management: clinically adequate Postoperative Hydration: acceptable. Intraoperative Events: no significant anesthesia events Post Operative Nausea/Vomiting Status: no significant post operative nausea or vomiting Recommendation: continue current plan of care and further care per PACU/ICU/floor team. Anesthesia Observations No Documentation SIGNATURE: Rishi Vee MD PATIENT NAME: Daniela Raymundo DATE: June 13, 2024 TIME: 4:01 PM CSN: [id number] Normal [facility] ANES PRE-OPon 06-13-2024 ANES PRE-OP HNO ID: [id number] Author: RISHI VEE MD Service: ? Author Type: Anesthesiologist Type: Anesthesia Preprocedure Evaluation Filed: 06/13/2024 13:28 Note Text: ANESTHESIOLOGY DAY OF SURGERY NOTE : 1945 Procedure Information Date/Time: 06/13/24 1400 Scheduled providers: Norbert Dailey MD; Rishi Vee MD; Temo Davis APRN.LEVEE SUPERINTENDENT Procedure: EGD - THERAPEUTIC, EUS, OR TUBE INTERVENTIONS Location: Gastroenterology Estimated body mass index is 24.45 kg/m? as calculated from the following: Height as of 04/07/24: 160 cm (5' 3 ). Weight as of 04/07/24: 62.6 kg (138 lb). Most recent hematocrit and potassium results: Hematocrit 40.3 11/20/2022 Hematocrit (POCT) 48 07/31/2022 Potassium 4.3 11/20/2022 Potassium (POCT) 5.4 07/31/2022 Relevant Problems No relevant active problems I - PHYSICAL EVALUATION AIRWAY Patient intubated: No. Tracheostomy tube not present Mallampati: II. TM distance: >3 FB. Neck ROM: full ROM without neurological symptoms. Mouth opening: adequate. Short neck: no. Thick neck: no Additional exam findings: no II - ANESTHESIA PLAN ASA Score: 4 Anesthetic Plan: MAC NPO Status: adequate Beta Chloé Monitoring Plan Monitoring plan: standard ASA. Post Procedure Analgesic Plan Postoperative analgesic plan: multimodal analgesia. Informed Consent Anesthetic risks, benefits, alternatives, personnel and consent discussed: yes. Patient / Responsible Alliance Party agrees to proceed: yes Patient / Surrogate agrees to blood products: Yes DNR status not reviewed with patient and/or family prior to surgery. Significant changes in the patient condition since the History and Physical, not otherwise documented in primary service progress note: no. Potential Anesthesia issues that may suggest increased risk of complications or contraindication to planned procedure: none. Vitals Value Taken Time BP 147/68 06/13/24 1300 Pulse 81 06/13/24 1300 Resp Temp 36.4 ?C (97.5 ?F) 06/13/24 1300 SpO2 97 % 06/13/24 1300 Outpatient Medications as of 06/13/2024 Medication Sig ALPRAZolam (XANAX) 0.5 mg tablet losartan (COZAAR) 25 mg tablet esomeprazole (NEXIUM) 40 mg capsule TAKE 1 CAPSULE TWICE DAILY metoprolol succinate ER (TOPROL XL) 50 mg 24 hr tablet Take 1 tablet by mouth once daily. 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 aspirin, enteric coated (ASPIRIN, ENTERIC COATED) 81 mg EC tablet Take 81 mg by mouth three times a week. fluticasone (FLONASE) 50 mcg/actuation nasal spray furosemide (LASIX) 40 mg tablet ACCU-CHEK FASTCLIX LANCET DRUM lancets levothyroxine (SYNTHROID) 75 mcg tablet pitavastatin (LIVALO) 2 mg tablet Take 1 tablet by mouth once daily. SITagliptin (JANUVIA) 100 mg tablet Take 100 mg by mouth once daily. POTASSIUM ORAL Take 300 mg by mouth once daily. Facility-Administered Medications as of 06/13/2024 Medication Dose Route Frequency lidocaine (PF) 10 mg/mL (1 %) 1-2 mg injection (XYLOCAINE) 0.1-0.2 mL INTRADERMAL PRN NaCl 0.9% iv infusion 30 mL/hr INTRAVENOUS CONTINUOUS I have interviewed and examined the patient. I have reviewed the medical record and/or the pre-anesthesia evaluation, pertinent labs, and test results. This contains updated information obtained within 48 hours of Surgery/Procedure. SIGNATURE: Rishi Vee MD PATIENT NAME: Daniela Raymundo DATE: June 13, 2024 TIME: 1:26 PM CSN: [id number] [facility] 06-13-2024 [facility] ([facility] -- DANIELA RAYMUNDO ([id number]) 1945 F Date Time Provider Department 06/13/24 NORBERT DAILEY [facility] During your visit today, we recorded the following information about you: Norbert Dailey MD 06/13/2024 6:52 PM Signed I reviewed the findings of today's examination with the patient and her family. There has been steady improvement in the amount of Haji's esophagus. We will plan for another round of therapy in 8 weeks. I will also contact her with the results of the biopsies. Norbert Dailey II, MD Allergies As of Date: 06/13/2024 Noted Allergy Reaction ALCOHOL 06/17/2019 4 - Hives ZETIA (EZETIMIBE) 06/17/2019 14 - Other: See Comments Comments: Leg cramps. 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 - aspirin, enteric coated (ASPIRIN, ENTERIC COATED) 81 mg EC tablet Take 81 mg by mouth three times a week. - ALPRAZolam (XANAX) 0.5 mg tablet - fluticasone (FLONASE) 50 mcg/actuation nasal spray - furosemide (LASIX) 40 mg tablet - ACCU-CHEK FASTCLIX LANCET DRUM lancets - levothyroxine (SYNTHROID) 75 mcg tablet - losartan (COZAAR) 25 mg tablet - pitavastatin (LIVALO) 2 mg tablet Take 1 tablet by mouth once daily. - SITagliptin (JANUVIA) 100 mg tablet Take 100 mg by mouth once daily. - POTASSIUM ORAL Take 300 mg by mouth once daily. Facility-Administered Medications as of 06/13/2024 - lidocaine (PF) 10 mg/mL (1 %) 1-2 mg injection (XYLOCAINE) - NaCl 0.9% iv infusion Problem List As Of Date 06/13/2024 Noted Resolved CAD (coronary artery disease) [I25.10] 06/18/2019 HTN (hypertension) [I10] 06/18/2019 Diabetes mellitus, type 2 (HCC) [E11.9] 06/18/2019 Atrial fibrillation (HCC) [I48.91] 09/05/2021 History of TIA (transient ischemic attack) [Z86*09/05/2021 Haji's syndrome [K22.70] 09/05/2021 Hypothyroidism [E03.9] 09/05/2021 Benign essential hypertension [I10] 04/07/2022 Essential tremor [G25.0] 04/07/2022 Generalized anxiety disorder [F41.1] 04/07/2022 Insomnia [G47.00] 04/07/2022 Mitral valve insufficiency [I34.0] 04/07/2022 Mixed hyperlipidemia [E78.2] 04/07/2022 Stage 2 chronic kidney disease [N18.2] 04/07/2022 Transient ischemic attack [G45.9] 04/07/2022 Haji's esophagus with high grade dysplasia [*07/31/2022 Observation after surgery [Z48.89] 07/31/2022 Haji's esophagus determined by biopsy [K22.7*07/31/2022 Acute respiratory failure with hypoxia and hype*07/31/2022 08/05/2022 Pneumonia due to infectious organism [J18.9] 07/31/2022 08/05/2022 Esophageal tear [S11.21XA] 08/01/2022 Encounter Status:Closed by NORBERT DAILEY on 06/13/24 Normal [facility] EGD Study observation Narrat iveon 06-13-2024 [facility] Radiology Study observation (narrative) [facility] GLUCOSE, BLOOD (POC)on 06-13 Glucose [Mass/Vol] 112 mg/dL Abnormal 74 - 99 mg/dL [facility] Comment on above: Location:[address], [facility] The Accu-Chek Inform II glucose meter has not been approved for testing on patients receiving intensive medical intervention or therapy and results from this point of care glucose test should not be used for patient management decisions in these cases. Inaccurate results may also occur from other interfering factors, such as N-acetylcysteine (blood concentrations of greater than 5mg/dL), galactose, extremes of hematocrit (<10 or >65), or high doses of ascorbic acid (vitamin C) greater than 3mg/dL. Consider alternate testing mechanisms (e.g. core lab, blood gas instrument) in the above situations. Interpretation and review of laboratory results Abnormal [facility] HISTORY PHYSICALon HISTORY PHYSICAL HNO ID: [id number] Author: NORBERT DAILEY MD Service: Gastroenterology Author Type: Physician Type: H&P Filed: 06/13/2024 14:00 Note Text: HISTORY AND PHYSICAL Daniela Raymundo, 79 year old female Current history and physical on file: No Is a new History and Physical required for today's visit? Yes Indication for procedure: Barretts esophagus PROCEDURE(S) SCHEDULED FOR: EGD (Esophagogastroduodenoscop y) with or without biopsies, removal of polyps or lesions, dilation ( any means), treatment of bleeding ( any means), Barrx treatment of Sarthak's Esophagus, image tube placement or cryo therapy treatment based on clinical findings. BASELINE BEHAVIOR: Calm BASELINE ORIENTATION: A AND O x3 All medications and allergies reviewed: Yes Skin Assessment: Warm dry mucus membranes pink Airway/Respiratory Assessment: Airway: visualization of the uvula- Yes Mouth: opening greater than 2 fingerbreadths- Yes Neck: full range of motion- Yes Breath sounds clear/equal- Yes Cardiac Assessment: Regular rate and rhythm without murmur Abdominal Assessment: Abdomen soft, non-tender, no masses or organomegaly. Sedation Plan: MAC Additional Comments: None Norbert Dailey II, MD [facility] NURSING PROGon 06-13-2024 NURSING PROG HNO ID: [id number] Author: KING CANSECO RN Service: Nursing Author Type: Registered Nurse Type: Nursing Progress Note Filed: 06/13/2024 17:30 Note Text: Report from Wayne CAR, continued care of patient. King Canseco RN 5:06 PM June 13, 2024 [facility] NURSING PROG HNO ID: [id number] Author: WAYNE GERONIMO RN Service: Nursing Author Type: Registered Nurse Type: Nursing Progress Note Filed: 06/13/2024 16:47 Note Text: AMBULATORY PATIENT EDUCATION NOTE TOPIC: GI PROCEDURES: Esophagogastroduodenoscopy (EGD) with or without biopies based on clinical findings, removal of polyps or lesions READINESS TO LEARN INSTRUCTION PROVIDED TO: Patient, readness to learn accessed prior to procedure COGNITIVE ABILITY: Alert and oriented PTED MOTIVATION TO LEARN: Interested FAMILY SUPPORT: High - Very involved in pt care IPATIENT LEARNS BEST BY: Individual Instruction Written Instruction - Hand-outs Verbal Instruction FACTORS AFFECTING LEARNING: None PHYSICAL LIMITATIONS AFFECTING LEARNING: None LEARNING RESPONSE METHOD OF INSTRUCTION: Individual instruction PATIENT / FAMILY RESPONSE: Verbalizes understanding of: WORSENING CONDITION-Signs and symptoms of a worsening condition that warrant a call to the physician FOLLOW-UP PLAN: Patient instructed to call with any further issues SUPPLEMENTAL MATERIAL: Procedure Discharge Instructions REFERRAL (RECOMMENDATION): None Electronically Signed By: Wayne Geronimo RN [facility] NURSING PROG HNO ID: [id number] Author: CASSIDY CHRISTINE RN Service: Nursing Author Type: Registered Nurse Type: Nursing Progress Note Filed: 06/13/2024 12:47 Note Text: PRE OP LEARNING ASSESSMENT PROCEDURE/SURGERY: GI PROCEDURES: EGD READINESS TO LEARN COGNITIVE ABILITY: Alert and oriented MOTIVATION TO LEARN: Interested FAMILY SUPPORT: High - Very involved in pt care PATIENT LEARNS BEST BY: Individual Instruction Verbal Instruction FACTORS AFFECTING LEARNING: None PHYSICAL LIMITATIONS AFFECTING LEARNING: None Electronically Signed By: Cassidy Christine RN In Department: GASTROENTEROLOGY [facility] SURGICAL [facility]OLOGYon [facility] Comment on above: Order Comment: Speci men Type: TISSUE SPECIMENOrdering Facility: [facility] Address: [address] [place] [address] Result Comment: Surg [facility] Pathology Report Case: [id number] Authorizing Provider: Norbert Dailey MD Collected: 06/13/2024 03:15 PM Ordering Location: Gastroenterology Received: 06/13/2024 06:39 PM Pathologist: Velma Guadalupe MD Specimens: A) - Esophagus, Biopsy, esophagus at 32cm r/o barett's, hx of barett's B) - Esophagus, Biopsy, esophagus at 25cm r/o barett's, hx of haji's C) - Esophagus, Biopsy, esophagus at 16cm r/o barett's, hx of barett's Performed By: #### S ####[facility] LABORATORYCLIA [id number] [address] LABCLIA [id number] [address] [place] DIAGNOSIS COMMENT A. This case was rev iewed (part A) via telepathology by Dr. Tyler and Dr. Rivera, with diagnosis concurrence. Normal [facility] Comment on above: Order Comment: Speci men Type: TISSUE SPECIMENOrdering Facility: [facility] Address: [address] [place] [address] Performed By: #### S ####[facility] LABORATORYCLIA [id number] [address] LABCLIA [id number] [address] [place] FINAL DIAGNOSIS Normal [facility] Comment on above: Order Comment: Speci men Type: TISSUE SPECIMENOrdering Facility: [facility] Address: [address] [place] [address] Result Comment: Grazyna mcbrideagus, biopsy at 32 cm: - Haji's esophagus with low-grade dysplasia; see comment. B. Esophagus, biopsy at 25 cm: - Haji's esophagus; no evidence of dysplasia. C. Esophagus, biopsy at 16 cm: - Haji's esophagus; no evidence of dysplasia. Performed By: #### S ####[facility] LABORATORYCLIA [id number] [address] LABCLIA [id number] [address] OF [facility] FINAL PERFORMING LAB Normal [facility] Comment on above: Order Comment: Speci men Type: TISSUE SPECIMENOrdering Facility: [facility] Address: [address] [place] [address] Result Comment: Diag nostic interpretation performed at [facility], [address] [place] [address] CLIA# [id number] [employer] Supervisor: Velma Guadalupe M.D. Performed By: #### S ####[facility] LABORATORYCLIA [id number] [address] LABCLIA [id number] [address] GROSS DESCRIPTION Normal [facility] Comment on above: Order Comment: Speci men Type: TISSUE SPECIMENOrdering Facility: [facility] Address: [address] [place] [address] Result Comment: A. E sophagus, Biopsy Received in formalin are two pieces of bal, soft tissue aggregating to 0.6 x 0.2 x 0.1 cm. Totally submitted in one cassette. B. Esophagus, Biopsy Received in formalin are two pieces of bal-white to bal-pink, soft tissue aggregating to 0.6 x 0.2 x 0.1 cm. Totally submitted in one cassette. C. Esophagus, Biopsy Received in formalin is one piece of bal, soft tissue measuring 0.5 x 0.3 x 0.1 cm. Totally submitted in one cassette. DB June 13, 2024 9:41 PM Gross examination performed at [facility], [address] [place] [id number] Performed By: #### S ####[facility] LABORATORYCLIA [id number] [address] OF [facility] LABCLIA [id number] [facility] [id number] EGD Study observation Narrat iveon 04-07-2024 [facility] Radiology Study observation (narrative) Jana witt [facility] GLUCOSE, BLOOD (POC)on 04-07 Glucose [Mass/Vol] 98 mg/dL 74 - 99 mg/dL [facility] Comment on above: Location:[facility], [facility] [place], [place], [facility] The Accu-Chek Inform II glucose meter has not been approved for testing on patients receiving intensive medical intervention or therapy and results from this point of care glucose test should not be used for patient management decisions in these cases. Inaccurate results may also occur from other interfering factors, such as N-acetylcysteine (blood concentrations of greater than 5mg/dL), galactose, extremes of hematocrit (<10 or >65), or high doses of ascorbic acid (vitamin C) greater than 3mg/dL. Consider alternate testing mechanisms (e.g. core lab, blood gas instrument) in the above situations. [facility] CHEMISTRYOrdered By: SYSTEM SYSTEM on 01-12-2024 Albumin [Mass/Vol] 4.0 g/dL Normal 3.3 - 5.0 gm/dL [facility] Albumin DL <= 20 mg/L (U) [Mass/Vol] 1.8 mg/dL Normal 0.0 - 1.9 mg/dL [facility] Albumin/Globulin [Mass ratio] 1.4 {ratio} Normal 1.1 - 2.2 [facility] ALP [Catalytic activity/Vol] 71 [iU]/d Normal 21 - 98 Int._Unit/ L [facility] ALT No additional P-5'-P [Catalytic activity/Vol] 14 [iU]/d Normal 6 - 46 Int._Unit/ L [facility] Anion gap [Moles/Vol] 11 mmol/L Normal 6 - 16 mEq/L [facility] AST [Catalytic activity/Vol] 18 [iU]/d Normal 5 - 43 Int._Unit/ L [facility] Bilirubin [Mass/Vol] 0.6 mg/dL Normal 0.0 - 1 .1 mg/dL [facility] Calcium [Mass/Vol] 10.3 mg/dL Normal 8.9 - 11. 1 mg/dL [facility] Chloride [Moles/Vol] 106 mmol/L Normal 101 - 1 11 mmol/L [facility] Cholesterol [Mass/Vol] 148 mg/dL Normal 120 - 200 mg/dL [facility] Cholesterol in HDL [Mass/Vol] 53 mg/dL Invalid Interpretation Code [facility] Comment on above: Result Comment: '>= 60 LOW RISK' '<= 40 HIGH RISK' Cholesterol in LDL [Mass/Vol] 75 mg/dL Normal <=129mg/dL [facility] Cholesterol in VLDL [Mass/Vol] 25 mg/dL Normal 7 - 40 mg/dL [facility] CO2 [Moles/Vol] 24 mmol/L Normal 21 - 31 mmol/L [facility] Creatinine [Mass/Vol] 1.5 mg/dL High 0.5 - 1.3 mg/dL [facility] eGFR 35 mL/min/1.73 m2 Low >=59mL/min /1.73 m2 [facility] Free T4 [Mass/Vol] 1.54 ng/dL Normal 0.58 - 1.64 ng/dL [facility] Globulin (S) [Mass/Vol] 2.9 g/dL Normal 1.4 - 4.0 gm/dL [facility] Glucose [Mass/Vol] 102 mg/dL Normal 55 - 199 mg/dL [facility] Potassium [Moles/Vol] 4.6 mmol/L Normal 3.5 - 5.3 mmol/L [facility] Protein [Mass/Vol] 6.9 g/dL Normal 6.0 - 7.8 gm/dL [facility] Protein/Creatinine (U) [Ratio] 6.50 mg/gm Cr Normal 0.00 - 200.00 mg/gm Cr [facility] Sodium [Moles/Vol] 136 mmol/L Normal 135 - 145 mmol/L [facility] Triglyceride [Mass/Vol] 124 mg/dL Normal <=149mg/dL R emisol Chem TSH Qn 0.20 m[IU]/L Low 0.34 - 5.60 mcIU/mL [facility] U Creatinine 232.5 mg/dL Invalid Interpretation Code Remisol Chem Ur Total Protein 15.2 mg/dL Invalid Interpretation Code [facility] Urea nitrogen [Mass/Vol] 16 mg/dL Normal 5 - 21 mg/dL [facility] Urea nitrogen/Creatinine [Mass ratio] 11 mg/mg Normal 10 - 20 [facility] CHEMISTRYOrdered By: Lata hernandez on 01-12-2024 HbA1c (Bld) [Mass fraction] 6.4 % High <=5.9% [facility] ChemAutoSS HEMATOLOGYOrdered By: SYSTEM SYSTEM on 01-12-2024 Basophils/100 WBC (Bld) 0.4 % Normal 0.0 - 2.0 % [facility] Heme Basophils/Leukocytes Auto (Bld) [Pure # fraction] 0.0 E9/L Normal 0.0 - 0.2 E9/L [facility] Eosinophils (Bld) [#/Vol] 0.2 E9/L Normal 0.0 - 0.5 E9/L [facility] Eosinophils/100 WBC (Bld) 2.4 % Normal 0.0 - 8.0 % [facility] Erythrocyte distribution width (RBC) [Ratio] 13.6 % Normal 10.9 - 14.2 % [facility] Hematocrit (Bld) [Volume fraction] 40.2 % Normal 34.0 - 46.0 % [facility] Hemoglobin (Bld) [Mass/Vol] 12.9 g/dL Normal 12.0 - 16.0 gm/dL [facility] Lymphocytes (Bld) [#/Vol] 3.9 E9/L Normal 1.0 - 4.0 E9/L [facility]e Lymphocytes/100 WBC (Bld) 37.9 % Normal 14.0 - 50.0 % [facility] MCH (RBC) [Entitic mass] 28.0 pg Normal 27.0 - 34.0 pg [facility]e MCHC (RBC) [Mass/Vol] 32.2 g/dL Normal 31.4 - 36.0 gm/dL [facility] MCV (RBC) [Entitic vol] 86.9 fL Normal 80.0 - 100.0 fL [facility] Monocytes (Bld) [#/Vol] 0.8 E9/L Normal 0.2 - 1.0 E9/L [facility] Monocytes/100 WBC (Bld) 7.9 % Normal 4.0 - 14.0 % [facility] Neutrophils (Bld) [#/Vol] 5.3 E9/L Normal 2.0 - 7.5 E9/L [facility]e Neutrophils/100 WBC (Bld) 51.4 % Normal 36.0 - 75.0 % [facility] Platelet 185.0 E9/L Normal 150.0 - 500.0 E9/L [facility] Platelet mean volume (Bld) [Entitic vol] 10.1 fL Normal 6.4 - 10.8 fL [facility]e RBC (Bld) [#/Vol] 4.6 E12/L Normal 4.3 - 5.9 E12/L [facility] WBC corrected for nucl RBC Auto (Bld) [#/Vol] 10.4 E9/L Normal 4.0 - 11.0 E9/L [facility] EGD Study observation Narrat iveon 12-31-2023 [facility] GLUCOSE, BLOOD (POC)on 12-30 Glucose [Mass/Vol] 116 mg/dL Abnormal 74 - 99 mg/dL [facility] Glucose [Mass/Vol] 124 mg/dL Abnormal 74 - 99 mg/dL [facility] EGD - THERAPEUTIC, EUS, OR T UBE INTERVENTIONSon 07-16-2023 [facility] GLUCOSE, BLOOD (POC)on 07-16 Glucose [Mass/Vol] 122 mg/dL Abnormal 74 - 99 mg/dL [facility] SURGICAL PATHOLOGYon Case Report Surgical Pathology R eport Case: [id number] Authorizing Provider: Norbert aDiley MD Collected: 05/07/2023 03:27 PM Ordering Location: Gastroenterology Received: 05/07/2023 05:14 PM Pathologist: Kenneth Rivera MD Specimen: ESOPHAGUS BIOPSY, R/O Barretts [facility] FINAL DIAGNOSIS Esophagus, biopsy: - Haji's esophagus with low-grade dysplasia. JEL 05/08/2023 [facility] Gross Description A. ESOPHAGUS BIOPSY Received in formalin are multiple pieces of bal, soft tissue aggregating to 1.5 x 0.4 x 0.1 cm. Totally submitted in two cassettes. Gross examination performed at [facility], [address] [place] [address] JT 05/07/2023 7:55 PM [facility] Performing Lab Diagnostic interpret ation performed at [facility], [address] [place] [address] CLIA# [id number] [employer] Supervisor: Jose Luis Babin M.D. [facility] EGD - THERAPEUTIC, EUS, OR T UBE INTERVENTIONSon 05-07-2023 [facility] GLUCOSE, BLOOD (POC)on 05-07 Glucose [Mass/Vol] 107 mg/dL Abnormal 74 - 99 mg/dL [facility] EGD - THERAPEUTIC, EUS, OR T UBE INTERVENTIONSon 02-26-2023 [facility] CARDIAC STRESS/REST INJE CTIONon 12-22-2022 [facility] CARDIAC STRESS/REST INJECTION Patient Name: DANIELA RAYMUNDO STUDY: MYOCARDIAL PERFUSION STRESS TEST WITH LEXISCAN Performing facility: [facility], [address] [place] [address], [address], [address] Provider: Caroline Sol DO, [facility] PCP: Dr. Angelo Schwartz Supervising provider: Payton Soto MD, [facility] INDICATION: Hx CABG Dyspnea Tremor Overweight HISTORY: Gender: F; Age: 77 y/o ; Height: 0 cm; Weight: 69.3877904 kg. CAD; High Cholesterol; Diabetes; HTN; Arrhythmias; SOB; TIA Quit smoking 3 years ago. Cardiac catheterization on 2010. CABG on 2010. COMPARISON: No comparison. ACCESSION NUMBER(S): [id number]; [id number]; [id number] ORDERING CLINICIAN: MICHELE SOL TECHNIQUE: ONE DAY protocol. Stress injection: Date:12-22-22, 32.1 mCi of Myoview IV 20 seconds after rapid injection of Lexiscan. Rest injection: Date: 12-22-22, 10.8 mCi of Myoview IV at rest. The patient had a rapid injection of 0.4 mg of Lexiscan IV over 10 seconds. Imaging was performed by gated tomographic technique. Reason for Lexiscan: Tremor STRESS TEST DATA: Resting heart rate was 66 BPM. Resting blood pressure was 132/82 mmHg. Peak blood pressure was 114/64 mmHg. Peak heart rate was 87 BPM. TEST TERMINATED DUE TO: Protocol completed FINDINGS: STRESS TEST RESULTS: Resting electrocardiogram revealed normal sinus rhythm with PACs. There were no significant ischemic ECG changes or dysrhythmias. The patient did not have chest pains/symptoms during procedure. There was a normal recovery phase. IMAGING RESULTS: Image quality was good. Rest and stress tomographic images were reviewed and revealed abnormal perfusion. There was no evidence of perfusion abnormality consistent with ischemia. There was evidence of a small to moderate-sized fixed perfusion abnormality involving the inferior and inferoapical segments consistent with infarction. There was no left ventricular dilatation with stress. Overall left ventricular systolic function appeared to be normal. . LVEF was 66%. TID is 1.0 and is normal. There was no evidence of attenuation artifact. IMPRESSION: Abnormal Lexiscan Myoview cardiac perfusion stress test. No myocardial ischemia by perfusion imaging. Small to moderate-sized inferior and inferoapical myocardial infarction by perfusion imaging. Normal left ventricular systolic function. Left ventricular ejection fraction 66 %. No previous studies are available for comparison. Electronically signed by: ELIEZER POTTS MD Normal [facility] No Panel Informationon 12-22 Normal -[address] Work Phone: EGD - THERAPEUTIC, EUS, OR T UBE INTERVENTIONSon 11-20-2022 [facility] GLUCOSE, BLOOD (POC)on 11-20 Glucose [Mass/Vol] 143 mg/dL Abnormal 74 - 99 mg/dL [facility] Glucose [Mass/Vol] 109 mg/dL Abnormal 74 - 99 mg/dL [facility] EGD - THERAPEUTIC, EUS, OR T UBE INTERVENTIONSon 10-29-2022 [facility] GLUCOSE, BLOOD (POC)on 10-29 Glucose [Mass/Vol] 129 mg/dL Abnormal 74 - 99 mg/dL [facility] Office Visit (Cardiology)on 07-15-2022 Follow-up visit Diagnoses/Problems Assessed Atherosclerosis of coronary artery bypass graft without angina pectoris (414.05) (I25.810) Paroxysmal atrial fibrillation (427.31) (I48.0) Dyspnea (786.09) (R06.00) Essential tremor (333.1) (G25.0) Overweight with body mass index (BMI) of 26 to 26.9 in adult (278.02,V85.22) (E66.3,Z68.26) Diabetes (250.00) (E11.9) Former smoker (V15.82) (Z87.891) QUIT APPROX 30 YRS AGO SMOKED 3PPD Orders Atherosclerosis of coronary artery bypass graft without angina pectoris Renew: Aspirin 81 MG Oral Tablet Delayed Release; 1 tablet 3 times weekly Atherosclerosis of coronary artery bypass graft without angina pectoris, Dyspnea, Essential tremor, Overweight with body mass index (BMI) of 26 to 26.9 in adult [place] Cardiac Stress/Rest Nuclear Med Order; Status:Hold For - Scheduling,Retrospective Authorization; Requested for:[id number]; Radiologist to Determine Optimal Study : Y What are the patient's signs and symptoms? : dyspnea SocHx: Former smoker Tobacco Use Screening; Status:Complete; Done: [id number] Patient Instructions Please bring all medicines, vitamins, and herbal supplements with you when you come to the office. Prescriptions will not be filled unless you are compliant with your follow up appointments or have a follow up appointment scheduled as per instruction of your physician. Refills should be requested at the time of your visit. pt may hold eliquis 3 days prior to 'halo ablation' procedure follow up in 1 year Chief Complaint DANIELA RAYMUNDO is being seen for an annual follow-up of. 77-year-old female returns for annual follow-up and is doing well other than increasing exertional dyspnea. She has a history of ASHD, three-vessel CABG in 2010, paroxysmal atrial fibrillation in the past currently treated with Eliquis, Holter monitoring revealing baseline rhythm with sinus rhythm with episodic A. fib. She denies any bleeding, thromboembolic events, heart failure hospitalizations or nitrate usage Patient has essential tremor, is undergoing halo esophageal intervention with Dr. Haro and will need to hold her Eliquis at least 3 days prior to intervention and then reestablish Eliquis therapy 1 to 2 days thereafterwards. Will proceed with Lexiscan stress imaging as its been 11 years since her intervention and above-mentioned new symptoms. We will follow-up otherwise in 1 year or sooner Surgical History Problems History of Appendectomy History of Cataract surgery History of Cholecystectomy History of Complete colonoscopy History of Coronary artery bypass graft History of Hysterectomy Current Meds Medication NameInstruction ALPRAZolam 0.5 MG Oral TabletTAKE 1 TABLET AT BEDTIME NEEDED. Aspirin 81 MG Oral Tablet Delayed Release1 tablet 3 times weekly Co Q-10 200 MG Oral CapsuleTAKE 1 CAPSULE Daily Eliquis 5 MG Oral TabletTake 1 tablet twice daily Esomeprazole Magnesium 40 MG Oral Capsule Delayed ReleaseTAKE 1 CAPSULE TWICE DAILY. Fexofenadine HCl - 180 MG Oral TabletTAKE 1 TABLET DAILY. Fluticasone Propionate 50 MCG/ACT Nasal SuspensionUSE DIRECTED. Furosemide 40 MG Oral TabletTAKE 1 TABLET DAILY. Januvia 100 MG Oral TabletTAKE 1 TABLET DAILY. Levothyroxine Sodium 75 MCG Oral TabletTAKE 1 TABLET DAILY. Livalo 2 MG Oral TabletTake 1 tablet daily Losartan Potassium 25 MG Oral TabletTAKE 1 TABLET EVERY DAY Magnesium 400 MG Oral TabletTake 1 tablet daily Potassium 99 MG Oral TabletTAKE 1 TABLET 3 times daily Vitamin B12 TABSTAKE 1 TABLET DAILY DIRECTED. Patient did not bring medication list or bottles. Updated verbally with patient Allergies Medication metoprolol Adverse Reaction; Shortness of breath;; Recorded By: Екатерина Castro; 08/13/2021 1:35:33 PM OSBALDO Inhibitors Adverse Reaction; Cough; Recorded By: Екатерина Castro; 08/13/2021 1:35:33 PM Statins DYSPNEA; dyspnea; Updated By: Val Corbin; 05/28/2022 11:29:30 AM Zetia Adverse Reaction; Myalgia; Visual Disturbance; Recorded By: Екатерина Castro; 08/13/2021 1:35:33 PM Social History Problems Caffeine use (V49.89) (Z78.9) 1-2 SODAS DAILY Former smoker (V15.82) (Z87.891) QUIT APPROX 30 YRS AGO SMOKED 3PPD No alcohol use No illicit drug use Review of Systems Constitutional: not feeling tired. Cardiovascular: palpitations, but no intermittent leg claudication and as noted in HPI. Respiratory: shortness of breath, but no cough. Gastrointestinal: no change in bowel habits and no blood in stools. Integumentary: no skin rashes. Neurological: no seizures and no frequent falls. All other systems have been reviewed and are negative for complaint. Vitals Vital Signs Recorded: 15Jul2022 01:03PM Heart Rate64, L Radial Dsdawzpd479, LUE, Sitting Lgsqfahrc08, LUE, Sitting Height5 ft 3.5 in Irnbot444 lb BMI Wvtebirtpl39.68 kg/m2 BSA Calculated1.74 Tobacco Useb) No PHQ-2 #1. Over the last 2 weeks have you felt down, depressed or hopeless? (If yes, answer PHQ-9 below (more content not included)... Normal Jun Group Tobacco Screening.on Adult depression screening assessment No [facility] divorce360 250 DO Work Phone: Fall risk assessment a) No falls within the last year [facility] divorce[employer] 250 DO Work Phone: Tobacco use status CP b) No [facility] divorce360 250 DO Work Phone: EGD - THERAPEUTIC, EUS, OR T UBE INTERVENTIONSon 05-22-2022 [facility] GLUCOSE, BLOOD (POC)on 05-22 Glucose [Mass/Vol] 117 mg/dL Abnormal 74 - 99 mg/dL [facility] CT HEAD WO CONon 09-24-2021 CT HEAD WO CON EXAMINATION: CT HEAD WO CON HISTORY: Pain after fall about 2 hours ago, hitting the back of the head. The patient has history of tremors. COMPARISON: None. TECHNIQUE: CT examination of the head without IV contrast. Dose reduction techniques were achieved by using automated exposure control and/or adjustment of mA and/or kV according to patient size and/or use of iterative reconstruction technique. FINDINGS: The study is somewhat limited due to motion artifact. There is no evidence of acute hemorrhage or infarct. There is no evidence of mass effect or midline shift. There is scattered ischemic white matter change and diffuse volume loss. The contents of the orbits are normal. The visualized paranasal sinuses and mastoid air cells are clear. Osseous structures are normal. Extracranial soft tissues are normal. IMPRESSION: Limited but grossly negative for an acute intracranial process. There are age-related changes in the brain. Electronically authenticated by: TISH SMITH Date: 2021-09-24 08:43 Normal [facility] Office Visit (Cardiology)on 08-13-2021 Follow-up visit Diagnoses/Problems Assessed Overweight with body mass index (BMI) of 27 to 27.9 in adult (278.02,V85.23) (E66.3,Z68.27) CAD (coronary artery disease) (414.00) (I25.10) Diabetes (250.00) (E11.9) Benign essential hypertension (401.1) (I10) Hyperlipemia (272.4) (E78.5) Paroxysmal atrial fibrillation (427.31) (I48.0) TIA (transient ischemic attack) (435.9) (G45.9) Former smoker (V15.82) (Z87.891) QUIT APPROX 30 YRS AGO SMOKED 3PPD Orders SocHx: Former smoker Tobacco Use Screening; Status:Complete; Done: [id number] Tobacco Use Screening; Status:Complete; Done: [id number] SocHx: Former smoker, Overweight with body mass index (BMI) of 27 to 27.9 in adult Healthy Weight Tips; Status:Complete - Retrospective Authorization; Done: [id number] Patient Instructions Please bring all medicines, vitamins, and herbal supplements with you when you come to the office. Prescriptions will not be filled unless you are compliant with your follow up appointments or have a follow up appointment scheduled as per instruction of your physician. Refills should be requested at the time of your visit Follow up in 1 year. Chief Complaint DANIELA RAYMUNDO is being seen for a 8M month follow-up of. Patient is a 76-year-old female who returns for 1 year follow-up and is doing well. Other than psychosocial stress, she otherwise has no cardiovascular complaints or recurrent TIAs, denies any angina or heart failure hospitalizations. She has a history of multiple TIAs in the past, history of very remote CABG, hypertension and diabetes and remains on appropriate guideline directed medical therapies for the above. She does have an essential tremor. Her Eliquis is in higher tier category and therefore paying an exorbitant amount of money for her antithrombotic therapy but this is the only one she can tolerate. Recommendations, continue current therapies we will follow-up in 1 year Current Meds Medication NameInstruction ALPRAZolam 0.5 MG Oral TabletTAKE 1 TABLET AT BEDTIME NEEDED. Aspirin 81 MG Oral Tablet Delayed Release1 tablet 3 times weekly Co Q-10 200 MG Oral CapsuleTAKE 1 CAPSULE Daily Eliquis 5 MG Oral TabletTake 1 tablet daily Esomeprazole Magnesium 40 MG Oral Capsule Delayed ReleaseTAKE 1 CAPSULE TWICE DAILY. Fexofenadine HCl - 180 MG Oral TabletTAKE 1 TABLET DAILY. Fluticasone Propionate 50 MCG/ACT Nasal SuspensionUSE DIRECTED. Furosemide 40 MG Oral TabletTAKE 1 TABLET DAILY. Januvia 100 MG Oral TabletTAKE 1 TABLET DAILY. Levothyroxine Sodium 75 MCG Oral TabletTAKE 1 TABLET DAILY. Livalo 2 MG Oral TabletTake 1 tablet daily Losartan Potassium 25 MG Oral TabletTAKE 1 TABLET DAILY. Magnesium 400 MG Oral TabletTake 1 tablet daily Potassium 99 MG Oral TabletTAKE 1 TABLET 3 times daily Vitamin B12 TABSTAKE 1 TABLET DAILY DIRECTED. Xarelto 20 MG Oral TabletTAKE 1 TABLET BY MOUTH DAILY Allergies Medication metoprolol Adverse Reaction; Shortness of breath;; Recorded By: Екатерина Castro; 08/13/2021 1:35:33 PM OSBALDO Inhibitors Adverse Reaction; Cough; Recorded By: Екатерина Castro; 08/13/2021 1:35:33 PM Zetia Adverse Reaction; Myalgia; Visual Disturbance; Recorded By: Екатерина Castro; 08/13/2021 1:35:33 PM Statins DYSPNEA; Recorded By: Екатерина Castro; 08/13/2021 1:35:33 PM Social History Problems Former smoker (V15.82) (Z87.891) QUIT APPROX 30 YRS AGO SMOKED 3PPD Review of Systems Constitutional: not feeling tired. Cardiovascular: no intermittent leg claudication and as noted in HPI. Respiratory: no cough and no shortness of breath. Gastrointestinal: no change in bowel habits and no blood in stools. Integumentary: no skin rashes. Neurological: no seizures and no frequent falls. All other systems have been reviewed and are negative for complaint. Vitals Vital Signs Recorded: 13Aug2021 01:40PM Heart Rate68, R Radial Lznxceeg635, RUE Amatimlga33, RUE Height5 ft 3.5 in Nqpbnx690 lb BMI Rzomeegbei06.2 kg/m2 BSA Calculated1.75 Tobacco Useb) No Fall Screeninga) No falls within the last year Physical Exam Constitutional: alert and in no acute distress. Neck: neck is supple, symmetric, trachea midline, no masses and no thyromegaly . Pulmonary: no increased work of breathing or signs of respiratory distress and lungs clear to auscultation. Cardiovascular: carotid pulses 2+ bilaterally with no bruit , JVP was normal, no thrills , regular rhythm, normal S1 and S2, no murmurs , pedal pulses 2+ bilaterally and no edema . Abdomen: abdomen non-tender, no masses and no hepatomegaly . Skin: skin warm and dry, normal skin turgor . Psychiatric judgment and insight is normal and oriented to person, place and time . Signatures Electronically signed by : Michele Sol DO; Aug 13 2021 2:24PM EST (Author) Normal [employer] Tobacco Screening.on 021 Fall risk assessment a) No falls within the last year [facility] [employer] ramon 250 DO Work Phone: Tobacco use status CPHS b) No M [facility] divorce360 250 DO Work Phone: Vital Signs Date Time Vital Sign Value Performing Clinician Facility 05-30-2025 15:30-0400 Diastolic blood pressure 81 mm[Hg] Norbert Dailey MD Work Phone: [facility] 05-30-2025 15:30-0400 Heart rate 60 /min Norbert Dailey MD Work Phone: [facility] 05-30-2025 15:30-0400 SaO2% (BldA) [Mass fraction] 98 % Norbert Dailey MD Work Phone: [facility] 05-30-2025 15:30-0400 Systolic blood pressure 198 mm[Hg] Norbert Dailey MD Work Phone: [facility] 05-30-2025 13:57-0400 Body temperature 96.8 [degF] Norbert Dailey MD Work Phone: [facility] 05-30-2025 13:57-0400 Respiratory rate 18 /min Norbert Dailey MD Work Phone: [facility] 05-30-2025 11:49-0400 Body height 160 cm Norbert Dailey MD Work Phone: [facility] 05-30-2025 11:49-0400 Body mass index (BMI) [Ratio] 22.86 kg/m2 Norbert Dailey MD Work Phone: [facility] 05-30-2025 11:49-0400 Body weight 58.54 kg Norbert Dailey MD Work Phone: [facility] 03-08-2025 14:07-0400 Body height 160 cm Gilberto Gaona MILLINERY [employer]ERMAN Work Phone: [facility] 03-08-2025 14:07-0400 Body mass index (BMI) [Ratio] 24.45 kg/m2 Gilberto Gaona [employer] Work Phone: [facility] 03-08-2025 14:07-0400 Body weight 62.6 kg Gilberto Gaona [employer] Work Phone: [facility] 03-08-2025 14:07-0400 Diastolic blood pressure 58 mm[Hg] Gilberto Gaona [employer] Work Phone: [facility] 03-08-2025 14:07-0400 Heart rate 78 /min Gilberto Gaona [employer] Work Phone: [facility] 03-08-2025 14:07-0400 Systolic blood pressure 136 mm[Hg] Gilberto Gaona [employer] Work Phone: [facility] 02-28-2025 13:16-0400 Body height 160 cm Marizol Rodriguez RN [facility] 02-28-2025 13:16-0400 Body mass index (BMI) [Ratio] 24.8 kg/m2 Marizol Rodriguez RN [facility] 02-28-2025 13:16-0400 Body weight 63.5 kg Marizol Rodriguez RN [facility] 02-28-2025 13:16-0400 Diastolic blood pressure 48 mm[Hg] Marizol Rodriguez RN [facility] 02-28-2025 13:16-0400 Heart rate 52 /min Marizol Rodriguez RN [facility] 02-28-2025 13:16-0400 Systolic blood pressure 122 mm[Hg] Marizol Rodriguez RN [facility] 02-17-2025 18:05-0400 Body temperature 98 [degF] Erwin Childers DO Work Phone: [facility] 02-17-2025 18:05-0400 Diastolic blood pressure 65 mm[Hg] Erwin Childers DO Work Phone: [facility] 02-17-2025 18:05-0400 Heart rate 68 /min Erwin Cooleyister DO Work Phone: [facility] 02-17-2025 18:05-0400 Respiratory rate 18 /min Erwin Cooleyister DO Work Phone: [facility] 02-17-2025 18:05-0400 SaO2% (BldA) [Mass fraction] 95 % Erwin Cooleyister DO Work Phone: [facility] 02-17-2025 18:05-0400 Systolic blood pressure 151 mm[Hg] Erwin Cooleyister DO Work Phone: [facility] 02-17-2025 06:00-0400 Body weight 66.1 kg Erwin Childers DO Work Phone: [facility] 02-16-2025 16:00-0400 Inhaled oxygen flow rate 2 L/min Erwin Cooleyister DO Work Phone: [facility] 02-14-2025 16:36-0400 Body height 160.02 cm Erwin Childers DO Work Phone: [facility] 12-05-2024 22:00-0400 Body temperature 98.9 [degF] Erwin Childers DO Work Phone: [facility] 12-05-2024 22:00-0400 Diastolic blood pressure 78 mm[Hg] Erwin Childers DO Work Phone: [facility] 12-05-2024 22:00-0400 Heart rate 64 /min Erwin Cooleyister DO Work Phone: [facility] 12-05-2024 22:00-0400 Respiratory rate 20 /min Erwin Cooleyister DO Work Phone: [facility] 12-05-2024 22:00-0400 SaO2% (BldA) [Mass fraction] 95 % Erwin Cooleyister DO Work Phone: [facility] 12-05-2024 22:00-0400 Systolic blood pressure 183 mm[Hg] Erwin Childers DO Work Phone: [facility] 12-05-2024 15:44-0400 Diastolic blood pressure 62 mm[Hg] [facility] 12-05-2024 15:44-0400 Heart rate 65 /min [facility] 12-05-2024 15:44-0400 Respiratory rate 16 /min [facility] 12-05-2024 15:44-0400 SaO2% (BldA) [Mass fraction] 93 % [facility] 12-05-2024 15:44-0400 Systolic blood pressure 129 mm[Hg] [facility] 12-05-2024 12:44-0400 Body height 160.02 cm [facility] 12-05-2024 12:44-0400 Body temperature 98.1 [degF] [facility] 12-05-2024 12:44-0400 Body weight 61.23 kg [facility] 08-04-2024 17:12-0500 Diastolic blood pressure 72 mm[Hg] Norbert Dailey MD Work Phone: [facility] 08-04-2024 17:12-0500 Heart rate 72 /min Norbert Dailey MD Work Phone: [facility] 08-04-2024 17:12-0500 SaO2% (BldA) [Mass fraction] 98 % Norbert Dailey MD Work Phone: [facility] 08-04-2024 17:12-0500 Systolic blood pressure 175 mm[Hg] Norbert Dailey MD Work Phone: [facility] 08-04-2024 17:00-0500 Respiratory rate 18 /min Norbert Dailey MD Work Phone: [facility] 08-04-2024 16:41-0500 Body temperature 97.3 [degF] Norbert Dailey MD Work Phone: [facility] 08-04-2024 14:06-0500 Body height 160 cm Norbert Dailey MD Work Phone: [facility] 08-04-2024 14:06-0500 Body mass index (BMI) [Ratio] 24.37 kg/m2 Norbert Dailey MD Work Phone: [facility] 08-04-2024 14:06-0500 Body weight 62.41 kg Norbert Dailey MD Work Phone: [facility] 06-13-2024 17:45-0400 Heart rate 59 /min Norbert Dailey MD Work Phone: [facility] 06-13-2024 17:45-0400 SaO2% (BldA) [Mass fraction] 94 % Norbert Dailey MD Work Phone: [facility] 06-13-2024 17:30-0400 Diastolic blood pressure 73 mm[Hg] Norbert Dailey MD Work Phone: [facility] 06-13-2024 17:30-0400 Respiratory rate 16 /min Norbert Dailey MD Work Phone: [facility] 06-13-2024 17:30-0400 Systolic blood pressure 157 mm[Hg] Norbert Dailey MD Work Phone: [facility] 06-13-2024 15:46-0400 Body temperature 97.5 [degF] Norbert Dailey MD Work Phone: [facility] 06-07-2024 11:07-0400 Body height 160 cm Michele Sol DO Work Phone: [facility] 06-07-2024 11:07-0400 Body mass index (BMI) [Ratio] 26.04 kg/m2 Michele Sol DO Work Phone: [facility] 06-07-2024 11:07-0400 Body weight 66.68 kg Michele Sol DO Work Phone: [facility] 06-07-2024 11:07-0400 Diastolic blood pressure 60 mm[Hg] Michele Sol DO Work Phone: [facility] 06-07-2024 11:07-0400 Heart rate 64 /min Michele Sol DO Work Phone: [facility] 06-07-2024 11:07-0400 Systolic blood pressure 100 mm[Hg] Michele Sol Work Phone: [facility] 04-07-2024 18:10-0400 Diastolic blood pressure 76 mm[Hg] Norbert Dailey MD Work Phone: [facility] 04-07-2024 18:10-0400 Heart rate 85 /min Norbert Dailey MD Work Phone: [facility] 04-07-2024 18:10-0400 Respiratory rate 18 /min Norbert Dailey MD Work Phone: [facility] 04-07-2024 18:10-0400 SaO2% (BldA) [Mass fraction] 99 % Norbert Dailey MD Work Phone: [facility] 04-07-2024 18:10-0400 Systolic blood pressure 174 mm[Hg] Norbert Dailey MD Work Phone: [facility] 04-07-2024 17:11-0400 Body temperature 96.8 [degF] Norbert Dailey MD Work Phone: [facility] 04-07-2024 15:31-0400 Body height 160 cm Norbert Dailey MD Work Phone: [facility] 04-07-2024 15:31-0400 Body mass index (BMI) [Ratio] 24.45 kg/m2 Norbert Dailey MD Work Phone: [facility] 04-07-2024 15:31-0400 Body weight 62.6 kg Norbert Dailey MD Work Phone: [facility] 12-31-2023 15:10-0400 Diastolic blood pressure 93 mm[Hg] Norbert Dailey MD Work Phone: [facility] 12-31-2023 15:10-0400 Heart rate 69 /min Norbert Dailey MD Work Phone: [facility] 12-31-2023 15:10-0400 Respiratory rate 18 /min Norbert Dailey MD Work Phone: [facility] 12-31-2023 15:10-0400 SaO2% (BldA) [Mass fraction] 94 % Norbert Dailey MD Work Phone: [facility] 12-31-2023 15:10-0400 Systolic blood pressure 146 mm[Hg] Norbert Dailey MD Work Phone: [facility] 12-31-2023 14:34-0400 Body temperature 96.8 [degF] Norbert Dailey MD Work Phone: [facility] 12-31-2023 12:53-0400 Body height 160 cm Norbert Dailey MD Work Phone: [facility] 12-31-2023 12:53-0400 Body weight 62.6 kg Norbert Dailey MD Work Phone: [facility] 08-04-2023 16:05-0500 Body height 160 cm Michele Sol DO Work Phone: [facility] 08-04-2023 16:05-0500 Body mass index (BMI) [Ratio] 25.51 kg/m2 Michele Sol DO Work Phone: [facility] 08-04-2023 16:05-0500 Body weight 65.32 kg Michele Sol DO Work Phone: [facility] 08-04-2023 16:05-0500 Diastolic blood pressure 64 mm[Hg] Michele Sol DO Work Phone: [facility] 08-04-2023 16:05-0500 Heart rate 60 /min Michele Sol DO Work Phone: [facility] 08-04-2023 16:05-0500 Systolic blood pressure 122 mm[Hg] Michele Sol DO Work Phone: [facility] 07-16-2023 15:20-0400 Diastolic blood pressure 75 mm[Hg] Norbert Dailey MD Work Phone: [facility] 07-16-2023 15:20-0400 Heart rate 71 /min Norbert Dailey MD Work Phone: [facility] 07-16-2023 15:20-0400 SaO2% (BldA) [Mass fraction] 95 % Norbert Dailey MD Work Phone: [facility] 07-16-2023 15:20-0400 Systolic blood pressure 167 mm[Hg] Norbert Dailey MD Work Phone: [facility] 07-16-2023 15:10-0400 Respiratory rate 20 /min Norbert Dailey MD Work Phone: [facility] 07-16-2023 12:06-0400 Body height 161.3 cm Norbert Dailey MD Work Phone: [facility] 07-16-2023 12:06-0400 Body temperature 96.8 [degF] Norbert Dailey MD Work Phone: [facility] 07-16-2023 12:06-0400 Body weight 61.24 kg Norbert Dailey MD Work Phone: [facility] 05-07-2023 16:40-0400 Heart rate 59 /min Norbert Dailey MD Work Phone: [facility] 05-07-2023 16:40-0400 SaO2% (BldA) [Mass fraction] 100 % Norbert Dailey MD Work Phone: [facility] 05-07-2023 16:20-0400 Diastolic blood pressure 58 mm[Hg] Norbert Dailey MD Work Phone: [facility] 05-07-2023 16:20-0400 Respiratory rate 18 /min Norbert Dailey MD Work Phone: [facility] 05-07-2023 16:20-0400 Systolic blood pressure 126 mm[Hg] Norbert Dailey MD Work Phone: [facility] 05-07-2023 15:48-0400 Body temperature 97.3 [degF] Norbert Dailey MD Work Phone: [facility] 05-07-2023 13:49-0400 Body height 160 cm Norbert Dailey MD Work Phone: [facility] 05-07-2023 13:49-0400 Body weight 61.69 kg Norbert Dailey MD Work Phone: [facility] 02-26-2023 15:10-0400 Diastolic blood pressure 58 mm[Hg] Norbert Dailey MD Work Phone: [facility] 02-26-2023 15:10-0400 Heart rate 66 /min Norbert Dailey MD Work Phone: [facility] 02-26-2023 15:10-0400 Respiratory rate 16 /min Norbert Dailey MD Work Phone: [facility] 02-26-2023 15:10-0400 SaO2% (BldA) [Mass fraction] 94 % Norbert Dailey MD Work Phone: [facility] 02-26-2023 15:10-0400 Systolic blood pressure 122 mm[Hg] Norbert Dailey MD Work Phone: [facility] 02-26-2023 14:54-0400 Body temperature 97.3 [degF] Norbert Dailey MD Work Phone: [facility] 02-26-2023 12:44-0400 Body height 160 cm Norbert Dailey MD Work Phone: [facility] 02-26-2023 12:44-0400 Body weight 61.83 kg Norbert Dailey MD Work Phone: [facility] 12-22-2022 12:00-0400 66 1 Fortunato Schwartz Work Phone: [facility] [address] [place] Work Phone: Comment on above: [id number] 11-20-2022 16:30-0500 Diastolic blood pressure 56 mm[Hg] Norbert Dailey MD Work Phone: [facility] 11-20-2022 16:30-0500 Heart rate 78 /min Norbert Dailey MD Work Phone: [facility] 11-20-2022 16:30-0500 Respiratory rate 16 /min Norbert Dailey MD Work Phone: [facility] 11-20-2022 16:30-0500 SaO2% (BldA) [Mass fraction] 99 % Norbert Dailey MD Work Phone: [facility] 11-20-2022 16:30-0500 Systolic blood pressure 124 mm[Hg] Norbert Dailey MD Work Phone: [facility] 11-20-2022 16:03-0500 Body temperature 97 [degF] Norbert Dailey MD Work Phone: [facility] 11-20-2022 13:53-0500 Body height 160 cm Norbert Dailey MD Work Phone: [facility] 11-20-2022 13:53-0500 Body weight 62.14 kg Norbert Dailey MD Work Phone: [facility] 10-29-2022 11:50-0500 Heart rate 87 /min Norbert Dailey MD Work Phone: [facility] 10-29-2022 11:50-0500 SaO2% (BldA) [Mass fraction] 93 % Norbert Dailey MD Work Phone: [facility] 10-29-2022 11:30-0500 Body temperature 96.8 [degF] Norbert Dailey MD Work Phone: [facility] 10-29-2022 11:30-0500 Diastolic blood pressure 69 mm[Hg] Norbert Dailey MD Work Phone: [facility] 10-29-2022 11:30-0500 Respiratory rate 16 /min Norbert Dailey MD Work Phone: [facility] 10-29-2022 11:30-0500 Systolic blood pressure 168 mm[Hg] Norbert Dailey MD Work Phone: [facility] 07-15-2022 13:03-0400 Body height 161.29 cm Fortunato Schwartz Work Phone: [facility] [employer] DO Work Phone: 07-15-2022 13:03-0400 Body mass index (BMI) [Ratio] 26.68 kg/m2 Fortunato Schwartz Work Phone: [facility] [employer] DO Work Phone: 07-15-2022 13:03-0400 Body surface area Derived from formula 1.74 m2 Fortunato Schwartz Work Phone: [facility] 250 DO Work Phone: 07-15-2022 13:03-0400 Body weight 69.4 kg Fortunato Schwartz Work Phone: [facility] [employer] DO Work Phone: 07-15-2022 13:03-0400 Diastolic blood pressure 58 mm[Hg] Fortunato Schwartz Work Phone: [facility] [employer] 250 DO Work Phone: 07-15-2022 13:03-0400 Heart rate 64 /min Fortunato Schwartz Work Phone: [facility] [employer] DO Work Phone: 07-15-2022 13:03-0400 Systolic blood pressure 122 mm[Hg] Fortunato Schwartz Work Phone: [facility] [employer] DO Work Phone: 05-22-2022 16:00-0400 Diastolic blood pressure 65 mm[Hg] Norbert Dailey MD Work Phone: [facility] 05-22-2022 16:00-0400 Heart rate 81 /min Norbert Dailey MD Work Phone: [facility] 05-22-2022 16:00-0400 Respiratory rate 16 /min Norbert Dailey MD Work Phone: [facility] 05-22-2022 16:00-0400 SaO2% (BldA) [Mass fraction] 92 % Norbert Dailey MD Work Phone: [facility] 05-22-2022 16:00-0400 Systolic blood pressure 154 mm[Hg] Norbert Dailey MD Work Phone: [facility] 05-22-2022 15:40-0400 Body temperature 97.7 [degF] Norbert Dailey MD Work Phone: [facility] 05-22-2022 12:40-0400 Body height 160 cm Norbert Dailey MD Work Phone: [facility] 05-22-2022 12:40-0400 Body weight 65.77 kg Norbert Dailey MD Work Phone: [facility] 04-07-2022 12:17-0400 Body height 160 cm Pacc 2 Work Phone: [facility] 04-07-2022 12:17-0400 Body temperature 97.3 [degF] Pacc 2 Work Phone: [facility] 04-07-2022 12:17-0400 Body weight 68.95 kg Pacc 2 Work Phone: [facility] 04-07-2022 12:17-0400 Diastolic blood pressure 78 mm[Hg] Pacc 2 Work Phone: [facility] 04-07-2022 12:17-0400 Heart rate 109 /min Pacc 2 Work Phone: [facility] 04-07-2022 12:17-0400 Respiratory rate 16 /min Pacc 2 Work Phone: [facility] 04-07-2022 12:17-0400 SaO2% (BldA) [Mass fraction] 97 % Pacc 2 Work Phone: [facility] 04-07-2022 12:17-0400 Systolic blood pressure 140 mm[Hg] Pacc 2 Work Phone: [facility] 08-13-2021 13:40-0500 Body height 161.29 cm Fortunato Schwartz Work Phone: [facility] [employer] DO Work Phone: 08-13-2021 13:40-0500 Body mass index (BMI) [Ratio] 27.2 kg/m2 Fortunato Schwartz Work Phone: [facility] 250 DO Work Phone: 08-13-2021 13:40-0500 Body surface area Derived from formula 1.75 m2 Fortunato Hugo Memomark Work Phone: [facility] [employer] DO Work Phone: 08-13-2021 13:40-0500 Body weight 70.76 kg Fortunato Hugo Jessica Work Phone: [facility] [employer] DO Work Phone: 08-13-2021 13:40-0500 Diastolic blood pressure 60 mm[Hg] Fortunato Hugo [employer] Work Phone: [facility] [employer] DO Work Phone: 08-13-2021 13:40-0500 Heart rate 68 /min Fortunato Schwartz Work Phone: [facility] 250 DO Work Phone: 08-13-2021 13:40-0500 Systolic blood pressure 130 mm[Hg] Fortunato Hugo Memomark Work Phone: [facility] [employer] DO Work Phone: Encounters Encounter Date Encounter Type Care Provider Facility Start: 02-05-2026 ambulatory MD Sonja Valdez ity:[facility] [place] Start: 08-16-2025 ambulatory CLINICAL NURSE LEADER Beatriz Guardado Facil ity:[facility] Micki Start: 05-30-2025 ambulatory NORBERT DAILEY Facility:[facility] Start: 05-30-2025 End: 05-30-2025 Subsequent hospital visit by physician Norbert Dailey MD Work Phone: Gastroenterology Comment on above: Haji's esophagus with low grade dysplasia [K22.710] Start: 05-24-2025 End: 05-24-2025 ambulatory CLINICAL NURSE LEADER Beatriz Guardado Facility:[facility] Moraima austin Start: 04-14-2025 End: 04-19-2025 Telephone encounter Norbert Dailey MD Work Phone: Gastroenterology Comment on above: Patient Question (En doscopy/Questions) Start: 03-13-2025 End: 03-13-2025 ambulatory MD Sonja Quezada Facility:[facility] Start: 03-09-2025 End: 03-09-2025 Telephone encounter Norbert Dailey MD Work Phone: Gastroenterology Comment on above: Patient Update Start: 03-08-2025 End: 03-08-2025 Office outpatient visit 25 minutes Gilberto Cortes Funk MILLINERY COPYIST-PEARL FISHERMAN Work Phone: [facility] Comment on above: 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, unspecified whether chilkat or transplanted heart (Primary Dx); Mixed hyperlipidemia; Paroxysmal atrial fibrillation (Multi); Essential hypertension; BMI 24.0-24.9, adult; Stage 3b chronic kidney disease (Multi); Type 2 diabetes mellitus with other specified complication, without long-term current use of insulin; alf (current) use of anticoagulants Start: 03-08-2025 End: 03-08-2025 ambulatory [facility] Ambulatory Start: 02-28-2025 End: 02-28-2025 Professional / ancillary services management Marizol Rodriguez RN [facility] Comment on above: Bradycardia, unspeci fied Start: 02-28-2025 End: 02-28-2025 ambulatory [facility] Ambulatory Start: 02-27-2025 End: 02-27-2025 ambulatory MD Sonja Quezada Facility:[facility] Start: 02-21-2025 End: 02-21-2025 ambulatory MD Sonja Quezada Facility:[facility] Start: 02-16-2025 End: 03-23-2025 ambulatory MD Sonja Quezada Facility:[id number] Start: 02-11-2025 End: 02-17-2025 Evaluation and management of inpatient Erwin Childers DO Work Phone: [facility] [place] [facility] Work Phone: Start: 02-09-2025 End: 02-09-2025 ambulatory Felipe Sands RNmaintenance custodian Start: 02-08-2025 End: 02-08-2025 ambulatory [facility] Start: 02-02-2025 End: 02-02-2025 ambulatory MD Sonja Quezada Facility:[facility] Moraima austin Start: 01-02-2025 End: 01-02-2025 ambulatory MD Sonja Quezada Facility:[facility] Moraima [place] Start: 12-29-2024 End: 12-29-2024 ambulatory Adore Del Real RNmaintenance custodian Start: 12-13-2024 End: 12-13-2024 ambulatory MD Sonja Quezada Facility:[facility] Moraima austin Start: 12-05-2024 End: 12-05-2024 Emergency department patient visit [facility] Work Phone: Start: 11-14-2024 End: 11-14-2024 ambulatory CARMELA MUNSON Facility:[facility] Start: 10-01-2024 End: 10-03-2024 Refill Roula Braun MD Work Phone: Gastroenterology Comment on above: Refill Request (Nexi um 40 mg) Start: 09-06-2024 End: 09-06-2024 ambulatory MD Sonja Quezada Facility: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 Moraima austin Start: 06-13-2024 End: 06-13-2024 ambulatory TEMO DAVIS Facility:[facility] Start: 06-13-2024 End: 06-13-2024 Telephone encounter Norbert Dailey MD Work Phone: Gastroenterology Comment on above: Results; Appointment Start: 06-13-2024 End: 06-13-2024 Subsequent hospital visit by physician Norbert Dailey MD Work Phone: Gastroenterology Comment on above: Haji's esophagus with low grade dysplasia [K22.710] Start: 06-07-2024 End: 06-07-2024 Office outpatient visit 15 minutes Michele Sol Work Phone: [facility] Comment on above: 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, unspecified whether chilkat or transplanted heart; Hx of CABG; Essential hypertension; Mixed hyperlipidemia; Paroxysmal atrial fibrillation (Multi); Haji's esophagus with dysplasia; Gastroesophageal reflux disease, unspecified whether esophagitis present; TIA (transient ischemic attack); Mitral valve insufficiency, unspecified etiology; Type 2 diabetes mellitus without complication, without long-term current use of insulin (Multi); Essential tremor; Overweight with body mass index (BMI) of 26 to 26.9 in adult; Former smoker Start: 06-07-2024 End: 06-07-2024 ambulatory [facility] Ambulatory Start: 06-06-2024 End: 06-06-2024 ambulatory Penny Rubi LPN Gastroenterology Start: 04-11-2024 Telephone encounter Norbert Dailey MD Work Phone: Gastroenterology Comment on above: Orders; Appointment Start: 04-07-2024 End: 04-07-2024 Subsequent hospital visit by physician Norbert Dailey MD Work Phone: Gastroenterology Comment on above: 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] Start: 02-24-2024 End: 02-24-2024 ambulatory Fortunato Schwartz MD Facility:[facility] Start: 01-12-2024 End: 01-12-2024 Lab Drop off Sonja Quezada [facility] Start: 01-06-2024 End: 01-06-2024 ambulatory Fortunato Schwartz MD Facility:[facility] Start: 01-04-2024 Telephone encounter Norbert Dailey MD Work Phone: Gastroenterology Comment on above: Results; Appointment Start: 12-31-2023 End: 12-31-2023 Subsequent hospital visit by physician Norbert Dailey MD Work Phone: Gastroenterology Comment on above: 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] Start: 12-19-2023 Refill Roula Witt Work Phone: Gastroenterology Comment on above: Refill Request Start: 09-10-2023 ambulatory Indiana Walters LPN Gastr oenterology Start: 08-04-2023 End: 08-04-2023 Office outpatient visit 25 minutes Michele Sol DO Work Phone: [facility] Comment on above: 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, unspecified whether chilkat or transplanted heart (Primary Dx); Benign essential hypertension; Hyperlipidemia, unspecified hyperlipidemia type; Mitral valve insufficiency, unspecified etiology; Paroxysmal atrial fibrillation (CMS/HCC); Diabetes mellitus of other type without complication, unspecified whether edge glue machine tender insulin use (CMS/HCC); TIA (transient ischemic attack); Haji's esophagus with dysplasia Start: 07-23-2023 Telephone encounter Norbert Dailey MD Work Phone: Gastroenterology Comment on above: Results Start: 07-16-2023 Telephone encounter Norbert Dailey MD Work Phone: Gastroenterology Comment on above: Results; Appointment Start: 07-16-2023 End: 07-16-2023 Subsequent hospital visit by physician Norbert Dailey MD Work Phone: Gastroenterology Comment on above: 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] Start: 05-18-2023 Rx Renewal Fortunato duffy Work Phone: [facility] 250 DO Work Phone: Start: 05-07-2023 End: 05-07-2023 Subsequent hospital visit by physician Norbert Dailey MD Work Phone: Gastroenterology Comment on above: 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] Start: 04-30-2023 ambulatory Nayana Combs RN [facility] ro[facility] Start: 02-26-2023 Telephone encounter Norbert Dailey MD Work Phone: Gastroenterology Comment on above: Results; Appointment Start: 02-26-2023 End: 02-26-2023 Subsequent hospital visit by physician Norbetr Dailey MD Work Phone: Gastroenterology Comment on above: 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] Start: 11-12-2022 Refill Roula Witt Work Phone: Gastroenterology Comment on above: Refill Request Start: 10-30-2022 Telephone encounter Norbert Dailey MD Work Phone: Gastroenterology Comment on above: Orders; Appointment Start: 10-29-2022 End: 10-29-2022 Subsequent hospital visit by physician Norbert Dailey MD Work Phone: Gastroenterology Comment on above: Haji's esophagus with low grade dysplasia [K22.710] Start: 10-22-2022 Telephone encounter Dilia Nava RN Gastroenterology Comment on above: Appointment Confirma tion Start: 09-24-2022 Telephone encounter Norbert Dailey MD Work Phone: Gastroenterology Comment on above: Orders Start: 09-09-2022 End: 09-09-2022 ambulatory Norbert Dailey MD Work Phone: Gastroenterology Comment on above: Haji's esophagus with low grade dysplasia (Primary Dx) Start: 09-09-2022 End: 09-09-2022 Telemedicine consultation with patient Norbert Dailey MD Work Phone: [facility] Start: 08-26-2022 End: 08-26-2022 ambulatory Norbert Dailey MD Work Phone: Gastroenterology Comment on above: Haji's esophagus with high grade dysplasia (Primary Dx) Start: 08-26-2022 End: 08-26-2022 Telemedicine consultation with patient Norbert Dailey MD Work Phone: [facility] Start: 08-25-2022 Telephone encounter Norbert Dailey MD Work Phone: Gastroenterology Comment on above: Patient Question Start: 08-12-2022 Telephone encounter Carmen Andrews RN NOC Comment on above: Follow Up Phone Call (All Clear) Start: 07-24-2022 Telephone encounter Jo Villa RNmaintenance custodian Comment on above: Appointment Confirma tion Start: 07-15-2022 Office outpatient vi sit 25 minutes Fortunato Schwartz Work Phone: [facility] DO Work Phone: Start: 07-15-[address] [facility] Start: 07-15-2022 Telephone encounter Norbert Dailey MD Work Phone: Gastroenterology Comment on above: Patient Question Start: 07-14-2022 Telephone encounter Norbert Dailey MD Work Phone: Gastroenterology Comment on above: Patient Update; Sparkle ent Question Start: 05-27-2022 Telephone encounter Norbert Dailey MD Work Phone: Gastroenterology Comment on above: Results Start: 05-22-2022 End: 05-22-2022 Subsequent hospital visit by physician Norbert Dailey MD Work Phone: Gastroenterology Comment on above: Polyp of stomach and duodenum [K31.7] Start: 05-15-2022 Telephone encounter Aleyda Vila RN G astroenterology Comment on above: Appointment Confirma tion Start: 04-18-2022 Telephone encounter Norbert Dailey MD Work Phone: Gastroenterology Comment on above: Patient Question; Ap pointment Start: 04-11-2022 Telephone encounter Norbert Dailey MD Work Phone: Gastroenterology Comment on above: Results Start: 04-07-2022 End: 04-07-2022 Admission to [facility] Pacc Gillespie 2 Work Phone: [facility] Start: 04-07-2022 End: 04-07-2022 [facility] Work Phone: [facility] Comment on above: History of TIA (bray sient ischemic attack); Atrial fibrillation, unspecified type (HCC); Coronary artery disease involving chilkat coronary artery of chilkat heart without angina pectoris; Primary hypertension; Type 2 diabetes mellitus without complication, without long-term current use of insulin (HCC) Start: 04-01-2022 Telephone encounter Penny Waldron RNmaintenance custodian Comment on above: Appointment Confirma tion Start: 03-28-2022 Telephone encounter Norbert Dailey MD Work Phone: Gastroenterology Comment on above: Medication Update (Q uestion) Start: 01-31-2022 End: 01-31-2022 ambulatory Norbert Dailey MD Work Phone: Gastroenterology Comment on above: Haji's esophagus with low grade dysplasia (Primary Dx) Start: 01-31-2022 End: 01-31-2022 Telemedicine consultation with patient Norbert Dailey MD Work Phone: [facility] Start: 09-24-2021 End: 09-25-2021 ambulatory HEBER RUTH Facility:H1 Start: 08-13-2021 Office outpatient vi sit 15 minutes Fortunato Schwartz Work Phone: [facility] DO Work Phone: Start: 08-13-2021 ambulatory Fortunato Schwartz Facility: Procedures Date Procedure Procedure Detail Performing Clinician Start: 05-30-2025 Esophagoscp rig transoral hypopharynx crv terrie Dailey MD Work Phone: Start: 05-30-2025 Gluc bld gluc mntr dev cleared fda spec home use [facility] Provider Start: 02-13-2025 CL Closure Device Placement 0 Erwin Childers DO Work Phone: Start: 02-13-2025 CL LHC & COR Angio w/grafts Erwin Cooley ister DO Work Phone: Start: 02-13-2025 CL Stent 1st Vessel LM RUSTY Erwin Chan ster DO Work Phone: Start: 02-13-2025 Erwin Childers DO Work Phone: Start: 02-13-2025 Plain chest X-ray Erwin Childers DO Work Phone: Start: 02-11-2025 Plain chest X-ray Erwin Childers DO Work Phone: Start: 12-05-2024 CT angiography of thorax Erwin Kaiser er DO Work Phone: Start: 12-05-2024 Viral nucleic acid assay Start: 12-05-2024 Plain chest X-ray Start: 08-04-2024 Esophagoscp rig transoral hypopharynx crv terrie Dailey MD Work Phone: Start: 08-04-2024 Gluc bld gluc mntr dev cleared fda spec home use Matthew Osborn MD Work Phone: Start: 06-13-2024 SURGICAL PATHOLOGY Norbert Dailey MD Work Phone: Start: 06-13-2024 Esophagoscp rig transoral hypopharynx crv terrie Dailey MD Work Phone: Start: 06-13-2024 Gluc bld gluc mntr dev cleared fda spec home use Temo Davis MILLINERY COPYIST.LEVEE SUPERINTENDENT Work Phone: Start: 06-07-2024 History of coronary artery bypass grafting Hx of CABG Michele Sol DO Work Phone: Start: 04-07-2024 Esophagoscp rig transoral hypopharynx crv terrie Dailey MD Work Phone: Start: 04-07-2024 Gluc bld gluc mntr dev cleared fda spec home use Fran Glass MD Work Phone: Start: 12-31-2023 Gluc bld gluc mntr dev cleared fda spec home use Onur Wheat APRN.LEVEE SUPERINTENDENT Work Phone: Start: 12-31-2023 Esophagoscp rig transoral hypopharynx crv terrie Dailey MD Work Phone: Start: 12-31-2023 Gluc bld gluc mntr dev cleared fda spec home use Onur Wheat APRN.LEVEE SUPERINTENDENT Work Phone: Start: 07-16-2023 Esophagoscp rig transoral hypopharynx crv terrie Dailey MD Work Phone: Start: 07-16-2023 Gluc bld gluc mntr dev cleared fda spec home use Hernan Comer MD Work Phone: Start: 05-07-2023 SURGICAL PATHOLOGY Norbert Dailey MD Work Phone: Start: 05-07-2023 Esophagoscp rig transoral hypopharynx crv terrie Dailey MD Work Phone: Start: 05-07-2023 Gluc bld gluc mntr dev cleared fda spec home use Darrel Sanders MD Work Phone: Start: 02-26-2023 Esophagoscp rig transoral hypopharynx crv terrie Dailey MD Work Phone: Start: 11-20-2022 Ecg routine ecg w/least 12 lds i&r only Tish Barr DO Work Phone: Start: 11-20-2022 Gluc bld gluc mntr dev cleared fda spec home use Mirna Contreras MILLINERY COPYIST.LEVEE SUPERINTENDENT Work Phone: Start: 11-20-2022 Gluc bld gluc mntr dev cleared fda spec home use Mirna Contreras MILLINERY COPYIST.LEVEE SUPERINTENDENT Work Phone: Start: 11-20-2022 Esophagoscp rig transoral hypopharynx crv terrie Dailey MD Work Phone: Start: 10-29-2022 Esophagoscp rig transoral hypopharynx crv terrie Dailey MD Work Phone: Start: 10-29-2022 Gluc bld gluc mntr dev cleared fda spec home use Rosalee Diane MD Work Phone: Start: 05-22-2022 Gluc bld gluc mntr dev cleared fda spec home use Ivania Osman MILLINERY COPYIST.LEVEE SUPERINTENDENT Work Phone: Start: 05-22-2022 Esophagoscp rig transoral hypopharynx crv terrie Dailey MD Work Phone: Start: 04-07-2022 Ecg routine ecg w/least 12 lds w/i&r [facility] Provider Appendectomy Fortunato pack Work Phone: Appendectomy Sonja Quezada Bilateral cataracts (disorder) Sonja Quezada Cataract surgery Fortunato balbuena Work Phone: Cholecystectomy Fortunato flores Work Phone: Cholecystectomy Sonja Quezada Colonoscopy Sonja Quezada Comment on above: several Coronary artery bypass graft Fortunato Schwartz Work Phone: Coronary artery bypass grafts x 3 Sonja Quezada Esophagogastroduoden oscopic electrohydraulic lithotripsy of bezoar in stomach Sonja Quezada Comment on above: several 12/31/23 for barretts esophagus, stretched History of coronary artery bypass grafting Hx of coronary artery bypass surgery Sonja Quezada History of coronary artery bypass grafting History of coronary artery bypass graft x 3 Erwin Childers DO Work Phone: Hysterectomy Fortunato Hamptonadama n Work Phone: Hysterectomy Sonaj Quezada Total colonoscopy Fortunato Hugo Malika cruzmark Work Phone: Plan of Treatment Date Care Activity Detail Author Start: 02-01-2034 DTaP/Tdap/Td Vaccines (2 - Td or Tdap) DTaP/Tdap/Td Vaccines (2 - Td or Tdap) [facility] Start: 02-01-2034 Urine microalbumin profile DTaP,Tdap,Td Vaccine (2 - Td or Tdap) [facility] Start: 06-13-2025 End: 06-13-2025 Patient encounter procedure 06/13/2025 1:30 PM EDT Office Visit [facility] [address] [facility] [address] [place] [address] Michele Sol DO [address] [facility] [address] [place] [address] [facility] Start: 05-29-2025 Influenza vaccination Influenza Vaccine (#1) [facility] Start: 03-08-2025 End: 03-08-2026 Basic metabolic 2000 panel - Serum or Plasma Basic Metabolic Panel Lab Routine Atherosclerosis of coronary artery bypass graft without angina pectoris, unspecified whether chilkat or transplanted heart Expected: 03/08/2025 (Approximate), Expires: 03/08/[address] [facility] Service Area Work Phone: Comment on above: Expected: 03/08/2025 (Approximate), Expi res: 03/08/2026 Start: 03-08-2025 End: 03-08-2026 CBC panel - Blood by Automated count CBC Lab Routine Paroxysmal atrial fibrillation (Multi) alf (current) use of anticoagulants Expected: 03/08/2025 (Approximate), Expires: 03/08/2026 [facility] Work Phone: Comment on above: Expected: 03/08/2025 (Approximate), Expi res: 03/08/2026 Start: 03-08-2025 End: 03-08-2025 Patient encounter procedure 03/08/2025 2:00 PM EDT Office Visit [facility] [address] [place] [address] Gilberto Gaona, MILLINERY COPYIST-PEARL FISHERMAN [address] [place] [address] [facility] Start: 02-28-2025 End: 02-28-2025 Professional / ancillary services management 02/28/2025 1:30 PM EDT Ancillary Procedure [facility] [address] [place] [address] Bradycardia, unspecified [facility] Comment on above: Bradycardia, unspecified Start: 02-17-2025 [facility] Start: 02-16-2025 End: 02-16-2025 Patient encounter procedure 02/16/2025 1:00 PM EDT Appointment Gastroenterology [address] [address] Norbert Dailey MD [address] [address] 2 hours please/Cryoablation w Ablation Gastroenterology Comment on above: 2 hours please/Cryoablation w Ablation Start: 02-15-2025 Administration of prophylactic treatment [facility] Start: 02-11-2025 Hospital admission [facility] Start: 02-11-2025 [facility] Start: 01-05-2025 End: 01-05-2025 Patient encounter procedure 01/05/2025 3:00 PM EDT Appointment Gastroenterology [address] [address] Norbert Dailey MD [address] [place] [address] Please schedule in early December Gastroenterology Comment on above: Please schedule in early December Start: 11-25-2024 Esophagogastroduodenoscopy EGD [facility] Start: 09-28-2024 Advance Directive Discussion Advance Directive Discussion [facility] Start: 09-28-2024 Medicare Advantage Annual Wellness Visit Medicare Advantage Annual Wellness Visit [facility] Start: 08-08-2024 End: 08-08-2024 Patient encounter procedure 08/08/2024 2:00 PM EST Appointment Gastroenterology [address] [address] Norbert Dailey MD [address] [place] [address] 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] Gastroenterology Comment on above: Haji's esophagus with high grade dysp lasia [K22.711] Start: 08-04-2024 End: 08-04-2024 Patient encounter procedure 08/04/2024 3:00 PM EST Appointment Gastroenterology [address] [address] Norbert Dailey MD [address] [place] [address] 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] Gastroenterology Comment on above: Haji's esophagus with high grade dysp lasia [K22.711] Start: 06-13-2024 End: 06-13-2024 Patient encounter procedure 06/13/2024 2:00 PM EDT Appointment Gastroenterology [address] [address] Norbert Dailey MD [address] [place] [address] Haji's esophagus with low grade dysplasia [K22.710]w AblationPLEASE SCHEDULE FOR TWO HOURSJV Gastroenterology Comment on above: Haji's esophagus with low grade dyspl eric [K22.710]w AblationPLEASE SCHEDULE FOR TWO HOURSJV Start: 06-07-2024 End: 06-07-2024 Patient encounter procedure 06/07/2024 1:10 PM EDT Office Visit [facility] [address] [place] [phone] Michele Sol, [address] [place] [address] [facility] Start: 05-29-2024 Covid-19 Vaccine ( season) Covid-19 Vaccine ( season) [facility] Start: 05-29-2024 Covid-19 Vaccine ( season) Covid-19 Vaccine () [facility] Start: 05-29-2024 COVID-19 Vaccine ( season) COVID-19 Vaccine ( season) [facility] Start: 05-29-2024 COVID-19 Vaccine ( season) COVID-19 Vaccine () [facility] Start: 05-29-2024 Influenza vaccination [facility] Start: 11-20-2023 Complete blood count Hemoglobin/Hematocrit [facility] Start: 11-20-2023 Creatinine measurement Serum Creatinine [facility] Start: 11-20-2023 HEMOGLOBIN/HEMATOCRIT HEMOGLOBIN/HEMATOCRIT [facility] Start: 11-20-2023 SERUM CREATININE SERUM CREATININE [facility] Start: 09-28-2023 Advance Directive Discussion Advance Directive Discussion [facility] Start: 09-28-2023 Behavioral Health Screening Behavioral Health Screening [facility] Start: 09-28-2023 Depression Assessment Depression Assessment [facility] Start: 08-04-2023 HEMOGLOBIN/HEMATOCRIT HEMOGLOBIN/HEMATOCRIT [facility] Start: 08-04-2023 SERUM CREATININE SERUM CREATININE [facility] Start: 07-14-2023 FUV, Provider: Michele Sol, Status: Lane, Time: 1:20 PM FUV, Provider: Michele Sol, Status: Pen, Time: 1:20 PM [facility] DO Work Phone: Start: 05-29-2023 Covid-19 Vaccine ( season) Covid-19 Vaccine () [facility] Start: 05-29-2023 Influenza vaccination [facility] Start: 01-28-2023 Hemoglobin A1c measurement HbA1C [facility] Start: 01-28-2023 Hemoglobin A1c/Hemoglobin.total in Blood HBA1C [facility] Start: 10-31-2022 Hemoglobin A1c measurement Diabetes: Hemoglobin A1C [facility] Start: 09-28-2022 ADVANCE DIRECTIVE DISCUSSION ADVANCE DIRECTIVE DISCUSSION [facility] Start: 09-28-2022 DEPRESSION ASSESSMENT DEPRESSION ASSESSMENT [facility] Start: 09-05-2022 BP CONTROLLED (<130/80) BP CONTROLLED (<130/80) [facility] Start: 08-28-2022 STRESS NUC, Provider: JOYCELYN HHVI NUCLEAR 01,[id number], Status: Pen, Time: 12:00 PM STRESS NUC, Provider: JOYCELYN HHVI NUCLEAR 01,[id number], Status: Pen, Time: 12:00 PM [facility] DO Work Phone: Start: 07-15-2022 FUV, Provider: Michele Sol, Status: Pen, Time: 1:00 PM FUV, Provider: Michele Sol, Status: Pen, Time: 1:00 PM [facility] DO Work Phone: Start: 05-29-2022 Influenza vaccination INFLUENZA (#1) [facility] Start: 05-05-2022 End: 07-05-2022 CBC W Auto Differential panel - Blood CBC + DIFF Lab Routine Polyp of stomach and duodenum Expected: 05/05/2022, Expires: 07/05/2022 [facility] Work Phone: Comment on above: Expected: 05/05/2022, Expires: Start: 05-05-2022 End: 07-05-2022 TYPE + SCREEN TYPE + SCREEN Blood Bank Routine Polyp of stomach and duodenum Expected: 05/05/2022, Expires: 07/05/2022 [facility] Work Phone: Comment on above: Expected: 05/05/2022, Expires: 2 Start: 12-08-2021 COVID-19 VACCINE (3 - Booster for Pfizer series) COVID-19 VACCINE (3 - Booster for Pfizer series) [facility] Start: 11-10-2021 COVID-19 VACCINE (4 - Booster for Pfizer series) COVID-19 VACCINE (4 - Booster for Pfizer series) [facility] Start: 09-28-2021 ADVANCE DIRECTIVE DISCUSSION ADVANCE DIRECTIVE DISCUSSION [facility] Start: 09-28-2021 DEPRESSION ASSESSMENT DEPRESSION ASSESSMENT [facility] Start: 09-04-2021 COVID-19 VACCINE (3 - Booster for Pfizer series) COVID-19 VACCINE (3 - Booster for Pfizer series) [facility] Start: 09-04-2021 COVID-19 VACCINE (4 - Booster for Pfizer series) COVID-19 VACCINE (4 - Booster for Pfizer series) [facility] Start: 09-04-2021 COVID-19 VACCINE (4 - Pfizer series) COVID-19 VACCINE (4 - Pfizer series) [facility] Start: 09-04-2021 COVID-19 Vaccine (5 - Pfizer series) COVID-19 Vaccine (5 - Pfizer series) [facility] Start: 09-28-2018 PNEUMOCOCCAL: 65+ (2 - PPSV23 if available, else PCV20) PNEUMOCOCCAL: 65+ (2 - PPSV23 if available, else PCV20) [facility] Start: 09-28-2018 PNEUMOCOCCAL: 65+ (2 - PPSV23 or PCV20) PNEUMOCOCCAL: 65+ (2 - PPSV23 or PCV20) [facility] Start: 2018 RSV High Risk: (Elderly (60+) or Population) (1 - 1-dose 75+ series) RSV High Risk: (Elderly (60+) or Population) (1 - 1-dose 75+ series) [facility] Start: 2018 RSV Vaccine (1 - 1-dose 75+ series) RSV Vaccine (1 - 1-dose 75+ series) [facility] Start: 11-23-2017 PNEUMOCOCCAL: 65+ (2 - PPSV23 if available, else PCV20) PNEUMOCOCCAL: 65+ (2 - PPSV23 if available, else PCV20) [facility] Start: 11-23-2017 PNEUMOCOCCAL: 65+ (2 - PPSV23 or PCV20) PNEUMOCOCCAL: 65+ (2 - PPSV23 or PCV20) [facility] Start: 01-10-2008 BONE DENSITY BONE DENSITY [facility] Start: 01-10-2008 Bone Density Screening Bone Density Screening [facility] Start: 01-10-2008 PNEUMOVAX AGE 65 AND OVER WITH 5YR LOOKBACK (#1) PNEUMOVAX AGE 65 AND OVER WITH 5YR LOOKBACK (#1) [facility] Start: 01-10-2008 Screening for osteoporosis Bone Density Screening [facility] Start: 2003 Hepatitis B Vaccine (1 of 3 - Risk 3-dose series) Hepatitis B Vaccine (1 of 3 - Risk 3-dose series) [facility] Start: 2003 RSV patients and/or patients aged 60+ years (1 - 1-dose 60+ series) RSV patients and/or patients aged 60+ years (1 - 1-dose 60+ series) [facility] Start: 2003 RSV Vaccine (1 - 1-dose 60+ series) RSV Vaccine (1 - 1-dose 60+ series) [facility] Start: 1993 SHINGRIX VACCINE (1 of 2) SHINGRIX VACCINE (1 of 2) [facility] Start: 1993 Zoster Vaccines (1 of 2) Zoster Vaccines (1 of 2) [facility] Start: 1965 DTaP/Tdap/Td Vaccines (1 - Tdap) DTaP/Tdap/Td Vaccines (1 - Tdap) [facility] Start: [address] [facility] Start: 1962 Urine screening for protein Diabetes: Urine Protein Screening [facility] Start: 1961 ANNUAL PCP TEAM CHRONIC DISEASE VISIT ANNUAL PCP TEAM CHRONIC DISEASE VISIT [facility] Start: 1961 BP CONTROLLED (<130/80) BP CONTROLLED (<130/80) [facility] Start: 1961 Depression Screening Depression Screening [facility] Start: 1961 HEMOGLOBIN/HEMATOCRIT HEMOGLOBIN/HEMATOCRIT [facility] Start: 1961 Hepatitis B surface antibody level LDL CHOLESTEROL [facility] Start: 1961 SERUM CREATININE SERUM CREATININE [facility] Start: 1955 Adult depression screening assessment DEPRESSION SCREENING [facility] Start: 1953 3 comp foot exam completed DIABETIC FOOT EXAM [facility] Start: 1953 Diabetic foot examination [facility] Start: 1953 Glaucoma screening [facility] Start: 1953 Hepatitis B screening URINE ALBUMIN:CREATININE RATIO [facility] Start: 1953 Hepatitis C antibody, confirmatory test DILATED RETINAL EXAM [facility] Start: 1949 PNEUMOCOCCAL: 65+ (1 - PCV) PNEUMOCOCCAL: 65+ (1 - PCV) [facility] Start: 01-10-1948 Hemoglobin A1c/Hemoglobin.total in Blood HBA1C [facility] Start: 1943 Lipid panel Lipid Panel [facility] Start: 1943 Medicare Annual Wellness Visit Medicare Annual Wellness Visit (AWV) [facility] Start: 1943 Screening for osteoporosis Bone Density Scan [facility] Start: 1943 Thyroid stimulating hormone measurement TSH Level [facility] Start: 1943 Urine screening for protein Diabetes: Urine Protein Screening [facility] ECG 12 Lead ECG 12 Lead ECG Routine Paroxysmal atrial fibrillation (Multi) 03/08/2025 2:00 PM EDT [facility] Work Phone: ECG 12 Lead ECG 12 Lead ECG Routine Bradycardia, unspecified 02/28/2025 12:[address] [facility] Service Area Work Phone: ECG COMPLETE ECG COMPLETE ECG 04/07/2022 12:24 PM EDT [facility] ECG COMPLETE ECG COMPLETE ECG STAT 11/20/2022 4:28 PM EST [facility] Work Phone: End: 01-31-2023 EGD - THERAPEUTIC, EUS, OR TUBE INTERVENTIONS EGD - THERAPEUTIC, EUS, OR TUBE INTERVENTIONS Endoscopy Routine Haji's esophagus with low grade dysplasia 1 Occurrences starting 01/31/2022 until 01/31/2023 [facility] Work Phone: Comment on above: 1 Occurrences starting 01/31/2022 until 01/31/2023 End: 05-05-2023 EGD - THERAPEUTIC, EUS, OR TUBE INTERVENTIONS EGD - THERAPEUTIC, EUS, OR TUBE INTERVENTIONS Endoscopy Routine Polyp of stomach and duodenum 1 Occurrences starting 05/05/2022 until 05/05/2023 [facility] Work Phone: Comment on above: 1 Occurrences starting 05/05/2022 until 05/05/2023 End: 05-27-2023 EGD - THERAPEUTIC, EUS, OR TUBE INTERVENTIONS EGD - THERAPEUTIC, EUS, OR TUBE INTERVENTIONS Endoscopy Routine Haji's esophagus with high grade dysplasia 1 Occurrences starting 05/27/2022 until 05/27/2023 [facility] Work Phone: Comment on above: 1 Occurrences starting 05/27/2022 until 05/27/2023 End: 09-24-2023 EGD - THERAPEUTIC, EUS, OR TUBE INTERVENTIONS EGD - THERAPEUTIC, EUS, OR TUBE INTERVENTIONS Endoscopy Routine Haji's esophagus with low grade dysplasia 1 Occurrences starting 09/24/2022 until 09/24/2023 [facility] Work Phone: Comment on above: 1 Occurrences starting 09/24/2022 until 09/24/2023 End: 10-29-2022 EGD - THERAPEUTIC, EUS, OR TUBE INTERVENTIONS EGD - THERAPEUTIC, EUS, OR TUBE INTERVENTIONS Endoscopy Routine Haji's esophagus with low grade dysplasia 1 Occurrences starting 10/29/2022 until 10/29/2022 [facility] Work Phone: Comment on above: 1 Occurrences starting 10/29/2022 until 10/29/2022 End: 10-30-2023 EGD - THERAPEUTIC, EUS, OR TUBE INTERVENTIONS EGD - THERAPEUTIC, EUS, OR TUBE INTERVENTIONS Endoscopy Routine Haji's esophagus with high grade dysplasia 1 Occurrences starting 10/30/2022 until 10/30/2023 [facility] Work Phone: Comment on above: 1 Occurrences starting 10/30/2022 until 10/30/2023 End: 12-27-2023 EGD - THERAPEUTIC, EUS, OR TUBE INTERVENTIONS EGD - THERAPEUTIC, EUS, OR TUBE INTERVENTIONS Endoscopy Routine Haji's esophagus with high grade dysplasia 1 Occurrences starting 12/26/2022 until 12/27/2023 [facility] Work Phone: Comment on above: 1 Occurrences starting 12/26/2022 until 12/27/2023 End: 02-27-2024 EGD - THERAPEUTIC, EUS, OR TUBE INTERVENTIONS EGD - THERAPEUTIC, EUS, OR TUBE INTERVENTIONS Endoscopy Routine Haji's esophagus with high grade dysplasia 1 Occurrences starting 02/26/2023 until 02/27/2024 [facility] Work Phone: Comment on above: 1 Occurrences starting 02/26/2023 until 02/27/2024 End: 07-16-2024 EGD - THERAPEUTIC, EUS, OR TUBE INTERVENTIONS EGD - THERAPEUTIC, EUS, OR TUBE INTERVENTIONS Endoscopy Routine Haji's esophagus with high grade dysplasia 1 Occurrences starting 07/16/2023 until 07/16/2024 [facility] Work Phone: Comment on above: 1 Occurrences starting 07/16/2023 until 07/16/2024 End: 01-03-2025 EGD - THERAPEUTIC, EUS, OR TUBE INTERVENTIONS EGD - THERAPEUTIC, EUS, OR TUBE INTERVENTIONS Endoscopy Routine Haji's esophagus with high grade dysplasia 1 Occurrences starting 01/04/2024 until 01/03/2025 [facility] Work Phone: Comment on above: 1 Occurrences starting 01/04/2024 until 01/03/2025 End: 04-11-2025 EGD - THERAPEUTIC, EUS, OR TUBE INTERVENTIONS EGD - THERAPEUTIC, EUS, OR TUBE INTERVENTIONS Endoscopy Routine Haji's esophagus with low grade dysplasia 1 Occurrences starting 04/11/2024 until 04/11/2025 [facility] Work Phone: Comment on above: 1 Occurrences starting 04/11/2024 until 04/11/2025 End: 06-13-2025 EGD - THERAPEUTIC, EUS, OR TUBE INTERVENTIONS EGD - THERAPEUTIC, EUS, OR TUBE INTERVENTIONS Endoscopy Routine Haji's esophagus with high grade dysplasia 1 Occurrences starting 06/13/2024 until 06/13/2025 [facility] Work Phone: Comment on above: 1 Occurrences starting 06/13/2024 until 06/13/2025 End: 08-10-2025 EGD - THERAPEUTIC, EUS, OR TUBE INTERVENTIONS EGD - THERAPEUTIC, EUS, OR TUBE INTERVENTIONS Endoscopy Routine Haji's esophagus with low grade dysplasia 1 Occurrences starting 08/10/2024 until 08/10/2025 [facility] Work Phone: Comment on above: 1 Occurrences starting 08/10/2024 until 08/10/[address] [facility] Work Phone: Patient referral [facility] Work Phone: SURGICAL PATHOLOGY [facility] Work Phone: Comment on above: Release Upon Ordering for 1 Occurrences starting 05/22/2022, 1 completed SURGICAL PATHOLOGY [facility] Work Phone: Comment on above: Release Upon Ordering for 1 Occurrences starting 02/26/2023, 1 completed SURGICAL PATHOLOGY [facility] Work Phone: Comment on above: Release Upon Ordering for 1 Occurrences starting 07/16/2023, 1 completed SURGICAL PATHOLOGY [facility] Work Phone: Comment on above: Release Upon Ordering for 1 Occurrences starting 12/31/2023, 1 completed SURGICAL PATHOLOGY [facility] Work Phone: Comment on above: Release Upon Ordering for 1 Occurrences starting 04/07/2024, 1 completed SURGICAL PATHOLOGY [facility] Work Phone: Comment on above: Release Upon Ordering for 1 Occurrences starting 08/04/2024, 1 completed [facility] Immunizations Immunization Date Immunization Notes Care Provider Fa cililaila 06-30-2024 influenza virus vacc ine, unspecified formulation Marizol Rodriguez RN [facility] 02-02-2024 tetanus toxoid, redu ryan diphtheria toxoid, and acellular pertussis vaccine, adsorbed Marizol Rodriguez RN [facility] Work Phone: 02-02-2024 tetanus toxoid, unspecified formulation Marizol Rodriguez RN [facility] Work Phone: 07-22-2023 influenza virus vacc ine, unspecified formulation Sonja Quezada [facility] 07-22-2023 influenza, injectabl e, quadrivalent, contains preservative Marizol Michael RN [facility] Work Phone: 07-22-2023 Influenza, Seasonal, Quadrivalent, Adjuvanted Marizol Michael RN [facility] Work Phone: 06-26-2022 influenza, high-dose , quadrivalent vaccine (FLUZONE HIGH DOSE QUADRIVALENT) Carmen Andrews RN [facility] 06-26-2022 influenza, injectabl e, quadrivalent, contains preservative Marizol Michael RN [facility] Work Phone: 06-26-2022 influenza, seasonal, injectable Michele Sol DO Work Phone: [facility] Work Phone: 06-26-2022 influenza virus vacc ine, unspecified formulation Norbert Dailey MD Work Phone: [facility] 06-17-2022 influenza virus vacc ine, unspecified formulation Sonja Quezada [facility] 06-17-2022 influenza, seasonal, injectable Fortunato Schwartz Work Phone: [place] [address] DO Work Phone: Comment on above: Series: 07-10-2021 Pfizer-BioNTech COVI D-19 Vacc 30 MCG/0.3ML Intramuscular Suspension Fortunato Schwartz Work Phone: [facility] 06-18-2021 Fluad Quadrivalent 0 .5 ML Intramuscular Prefilled Syringe Fortunato Schwartz Work Phone: [facility] 06-18-2021 influenza virus vacc ine, unspecified formulation Sonja Quezada [facility] 06-18-2021 influenza, seasonal, injectable Michele Sol DO Work Phone: [facility] Work Phone: 11-17-2020 Pfizer-BioNTech COVI D-19 Vacc 30 MCG/0.3ML Intramuscular Suspension Fortunato Schwartz Work Phone: [facility] Comment on above: Result Comment: 2023: [id number] 10-25-2020 SARS-CoV-2 (COVID-19 ) mRNA BNT-162b2 vax Sonja Damien [facility] Comment on above: Result Comment: 2023: [id number] 10-20-2020 Pfizer-BioNTech COVI D-19 Vacc 30 MCG/0.3ML Intramuscular Suspension Fortunato Schwartz Work Phone: [place] [address] DO Work Phone: 06-06-2020 influenza virus vacc ine, unspecified formulation Sonja Quezada [facility] 06-06-2020 influenza, injectabl e, quadrivalent, contains preservative Fortunato Schwartz Work Phone: [facility] 06-06-2020 influenza, seasonal, injectable Michele Sol DO Work Phone: [facility] Work Phone: 05-29-2020 influenza virus vacc ine, unspecified formulation Sonja Queazda [facility] 05-29-2020 influenza, seasonal, injectable Fortunato Schwartz Work Phone: [facility] 07-11-2019 AS03 adjuvant Pacc 2 Work Phone: [facility] 07-11-2019 influenza virus vacc ine, unspecified formulation Sonja Quezada [facility] 07-11-2019 influenza, injectabl e, quadrivalent, contains preservative Pacc 2 Work Phone: [facility] 07-11-2019 influenza, seasonal, injectable Michele Sol DO Work Phone: [facility] Work Phone: 07-11-2019 Seasonal trivalent influenza vaccine, adjuvanted, preservative free Fortunato Schwartz Work Phone: [facility] 06-28-2019 influenza virus vacc ine, unspecified formulation Sonja Quezada [facility] 06-28-2019 influenza, seasonal, injectable Fortunato Schwartz Work Phone: [facility] 06-29-2018 influenza, high dose seasonal, preservative-free Pacc 2 Work Phone: [facility] 06-28-2018 influenza, high dose seasonal, preservative-free Fortunato Schwartz Work Phone: [facility] [employer] [address] DO Work Phone: 09-28-2017 pneumococcal conjuga te vaccine, 13 valent Fortunato Schwartz Work Phone: [facility] 07-20-2017 HPV, unspecified formulation Michele Sol DO Work Phone: [facility] Work Phone: 07-20-2017 human papilloma viru s vaccine, quadrivalent Fortunato Schwartz Work Phone: [facility] 07-20-2017 influenza, injectabl e, quadrivalent, contains preservative Pacc 2 Work Phone: [facility] 06-28-2017 influenza virus vacc ine, unspecified formulation Fortunato Schwartz Work Phone: [facility] [employer] [address] DO Work Phone: 07-30-2016 influenza, injectabl e, quadrivalent, contains preservative Pacc 2 Work Phone: [facility] 07-11-2016 influenza virus vacc ine, unspecified formulation Fortunato Schwartz Work Phone: [facility] 250 DO Work Phone: 08-01-2015 influenza, injectabl e, quadrivalent, contains preservative Pacc 2 Work Phone: [facility] 08-01-2015 pneumococcal conjuga te vaccine, 13 valent Pac 2 Work Phone: [facility] 07-30-2015 influenza virus vacc ine, unspecified formulation Fortunato Schwartz Work Phone: [facility] 250 DO Work Phone: 06-28-2014 influenza virus vacc ine, unspecified formulation Fortunato Schwartz Work Phone: [facility] 250 DO Work Phone: 06-28-2014 pneumococcal polysaccharide vaccine, 23 valent Fortunato Schwartz Work Phone: [facility] 250 DO Work Phone: 09-28-2012 influenza virus vacc ine, unspecified formulation Sonja Quezada [facility] 09-28-2012 influenza, seasonal, injectable Michele Sol DO Work Phone: [facility] Work Phone: 09-28-2011 influenza virus vacc ine, unspecified formulation Sonja Quezada [facility] 09-28-2011 influenza, seasonal, injectable Michele Ebenezer DO Work Phone: [facility] Work Phone: 09-28-2010 influenza virus vacc ine, unspecified formulation Sonja Quezada [facility] 09-28-2010 influenza, seasonal, injectable Michele Ebenezer DO Work Phone: [facility] Work Phone: 09-28-2008 pneumococcal polysaccharide vaccine, 23 valent Fortunato Schwartz Work Phone: [facility] 250 DO Work Phone: influenza virus vacc ine, unspecified formulation Fortunato Schwartz Work Phone: [facility] 250 DO Work Phone: Comment on above: 2012 2011 2010 Payers Date Payer Category Payer Medicare [id number] 2024 Self-pay 2022 Medicare (Managed Care) [id number]. [id number] 2017 Medicare HUMANA MEDICARE HU[employer]NA MEDICARE PPO [id number] 2017-Present [id number] [place] [address] PPO [id number] 2017 Medicare [id number] 1959 Medicare [id number] 1943 Unknown [id number] [id number]. 593 1943 Unknown [id number] 2.16.840.1.882681.3.579.2. 356 1943 Unknown [id number] 2.16.840.1.652373.3.579.2. 356 1943 Unknown [id number] 2.16.840.1.887403.3.579.2. 1068 1943 Unknown [id number] 2.16.840.1.946126.3.579.2. 1244 1943 Unknown [id number] 2.16.840.1.029770.3.579.2. 1244 1943 Unknown [id number] 2.16.840.1.639086.3.579.2. 124 1943 Unknown [id number] 2.16.840.1.936893.3.579.2. 1243 1943 Unknown [id number] 2.16.840.1.610811.3.579.2. 124 1943 Unknown [id number] 2.16.840.1.501852.3.579.2. 72 1943 Unknown [id number] 2.16.840.1.850758.3.579.2. 72 1943 Unknown [id number] 2.16.840.1.144083.3.579.2. 1943 Unknown [id number] 2.16.840.1.481842.3.579.2 1943 Unknown [id number] 2.16.840.1.931829.3.579.2. 72 1943 Unknown [id number] 2.16.840.1.343756.3.579.2 72 1943 Unknown [id number] 2.16.840.1.494594.3.579.2. 72 1943 Unknown [id number] 2.16.840.1.810370.3.579.2 1943 Unknown [id number] 2.16.840.1.648442.3.579.2. 72 1943 Unknown [id number] 2.16.840.1.904035.3.579.2 72 1943 Unknown [id number] 2.16.840.1.948772.3.579.2. 727 Medicare Medicare Outpatient [id number] [id number] Unknown Unknown [facility] [id number] Unknown [id number] 2.16.840.1.685528.3.579.2. 531 Unknown [id number] 2.16.840.1.885400.3.579.2. 531 Social History Date Type Detail Facility Start: 06-17-2019 End: 03-29-2024 Caffeine use Caffeine use -[facility] DO Work Phone: Comment on above: 1-2 SODAS DAILY; QUIT APPROX 30 YRS A GO SMOKED 3PPD; Start: 06-17-2019 End: 05-30-2025 Tobacco smoking status NHIS Ex-smoker [facility] End: 09-28-1977 History of tobacco use Current smoker [facility] End: 09-28-1977 History of tobacco use Cigarette Smoker [facility] Start: 06-17-2019 End: 05-30-2025 Tobacco use and exposure Smokeless tobacco non-user [facility] Start: 09-05-2021 End: 05-30-2025 Alcohol intake Ex-drinker (finding) [facility] Start: 06-17-2019 History SDOH Alcohol Frequency 1 [facility] Start: 06-17-2019 History SDOH Alcohol Comment allergic to etoh. [facility] Start: 06-17-2019 End: 11-20-2022 Tobacco Comment 2.5-3 packs per day. [facility] Start: 1945 Sex Assigned At Female [facility] Start: 12-31-2021 End: 03-08-2025 Exposure to SARS-CoV-2 (event) Not sure [facility] Start: 06-17-2019 End: 03-29-2024 Alcohol Use Disorder Identification Test - Consumption [AUDIT-C] [facility] Start: 09-12-2015 Frequency of Alcohol Consumption Never [facility] Start: 12-04-2021 Gender identity Identifies as female gender (finding) [facility] Start: 12-04-2021 Sexual orientation Heterosexual (fin ding) [facility] Start: 08-04-2023 End: 06-07-2024 Alcohol intake Lifetime non-drinker (finding) [facility] Work Phone: Start: 1945 Sex Assigned At Not on file [facility] Work Phone: Start: 12-05-2024 End: 02-12-2025 Tobacco smoking status NHIS Never smoked tobacco (finding) [facility] Start: 12-05-2024 End: 02-17-2025 Sex Female (finding) [facility] Start: 02-13-2025 SDOH Follow up SDOH Follow up [facility] Work Phone: Medical Equipment Procedure Code Equipment Code Equipment Origin al Text Equipment Identifier Dates [id number] Start: 05-10-2019 Drug-eluting coronary artery stent, [id number] lymer-coated ()[id number] FDA Start: 02-13-2025 Femoral artery closure plug/patch, synthetic polymer ()[id number] FDA Start: 02-13-2025 Goals Date Patient Goal Desired Activity /State Functional Status Date Assessment Result Facility 02-17-2025 Functional status Patient at Baseline [facility] Work Phone: 08-05-2022 Are you deaf, or do you have serious difficulty hearing No [facility] 08-05-2022 Are you blind, or do you have serious difficulty seeing, even when wearing glasses No [facility] 08-05-2022 Do you have serious difficulty walking or climbing stairs Yes [facility] 08-05-2022 Do you have difficul ty dressing or bathing Yes [facility] 08-05-2022 Because of a physica l, mental, or emotional condition, do you have difficulty doing errands alone such as visiting a physician's office or shopping No [facility] Mental Status Date Assessment Result Facility 02-17-2025 Cognitive function Cognitive Sta tus Patient at Baseline [facility] Work Phone: 08-05-2022 Because of a physica l, mental, or emotional condition, do you have serious difficulty concentrating, remembering, or making decisions No [facility] Clinical Notes 01-31-2022 to 05-30-2025 Xin Billingsley LPN - 05/30/2025 1:59 PM Xin Connolly LPN - 05/30/2025 1:59 PM Fernando Daly RN - 05/30/2025 12:26 PM Fernando Daly RN - 05/30/2025 12:13 PM EDTPatient Instructions Note Date & Type Note Facility 05-30-2025 Nurse Note AMBULATORY PATIENT EDUCATION NOTE TOPIC: GI PROCEDURES: Esophagogastroduodenoscopy(EGD) with or without biopies based on clinical findings, removal of polyps or lesions READINESS TO LEARN INSTRUCTION PROVIDED TO: Patient and family member COGNITIVE ABILITY: Alert and oriented PTED MOTIVATION TO LEARN: Interested FAMILY SUPPORT: High - Very involved in pt care IPATIENT LEARNS BEST BY: Written Instruction - Hand-outs Verbal Instruction FACTORS AFFECTING LEARNING: None PHYSICAL LIMITATIONS AFFECTING LEARNING: None LEARNING RESPONSE METHOD OF INSTRUCTION: Individual instruction PATIENT / FAMILY RESPONSE: Verbalizes understanding of: WORSENING CONDITION-Signs and symptoms of a worsening condition that warrant a call to the physician FOLLOW-UP PLAN: Patient instructed to call with any further issues SUPPLEMENTAL MATERIAL: Procedure Discharge Instructions REFERRAL (RECOMMENDATION): None Electronically Signed By: Xin Billingsley LPN [facility] 05-30-2025 Nurse Note AMBULATORY PATIENT EDUCATION NOTE TOPIC: GI PROCEDURES: Esophagogastroduodenoscopy(EGD) with or without biopies based on clinical findings, removal of polyps or lesions READINESS TO LEARN INSTRUCTION PROVIDED TO: Patient and family member COGNITIVE ABILITY: Alert and oriented PTED MOTIVATION TO LEARN: Interested FAMILY SUPPORT: High - Very involved in pt care IPATIENT LEARNS BEST BY: Written Instruction - Hand-outs Verbal Instruction FACTORS AFFECTING LEARNING: None PHYSICAL LIMITATIONS AFFECTING LEARNING: None LEARNING RESPONSE METHOD OF INSTRUCTION: Individual instruction PATIENT / FAMILY RESPONSE: Verbalizes understanding of: WORSENING CONDITION-Signs and symptoms of a worsening condition that warrant a call to the physician FOLLOW-UP PLAN: Patient instructed to call with any further issues SUPPLEMENTAL MATERIAL: Procedure Discharge Instructions REFERRAL (RECOMMENDATION): None Electronically Signed By: Xin Billingsley LPN Dr Dailey notified Elquis stopped 05/27/2025 Palvix not stopped took 05/29/2025 Dr Church anesthesia notified IV placed in procedure room due to patients tremors PRE OP LEARNING ASSESSMENT PROCEDURE/SURGERY: GI PROCEDURES: EGD READINESS TO LEARN COGNITIVE ABILITY: Alert and oriented MOTIVATION TO LEARN: Interested FAMILY SUPPORT: High - Very involved in pt care PATIENT LEARNS BEST BY: Verbal Instruction FACTORS AFFECTING LEARNING: None PHYSICAL LIMITATIONS AFFECTING LEARNING: None Electronically Signed By: Fernando Neumann RN In Department: GASTROENTEROLOGY documented in this encounter [facility] 05-30-2025 Note Q3 Patient Name: Daniela Raymundo Procedure Date: 05/30/2025 12:50 PM Date of : 1945 Admit Type: Outpatient Age: 80 Gender: Female Note Status: Finalized Attending MD: Norbert Dailey MD, [id number] Procedure: Upper GI endoscopy Indications: Follow-up of previous ablation treatment of Haji's esophagus Providers: Norbert Dailey MD Referring Physician: Norbert Dailey MD (Referring MD) Medicines: Monitored Anesthesia Care Complications: No immediate complications. Requesting Provider: Procedure: Pre-Anesthesia Assessment: - Prior to the procedure, a History and Physical was performed, and patient medications and allergies were reviewed. The patient's tolerance of previous anesthesia was also reviewed. The risks and benefits of the procedure and the sedation options and risks were discussed with the patient. All questions were answered, and informed consent was obtained. Prior Anticoagulants: The patient last took Plavix (clopidogrel) on the day of the procedure. ASA Grade Assessment: III - A patient with severe systemic disease. After reviewing the risks and benefits, the patient was deemed in satisfactory condition to undergo the procedure. After obtaining informed consent, the endoscope was passed under direct vision. Throughout the procedure, the patient's blood pressure, pulse, and oxygen saturations were monitored continuously. The Endoscope was introduced through the mouth, and advanced to the second part of duodenum. The upper GI endoscopy was accomplished with ease. The patient tolerated the procedure well. Moderate Sedation: MAC anesthesia was administered by the anesthesia team. Findings: The esophagus and gastroesophageal junction were examined with white light and narrow band imaging (NBI) from a forward view and retroflexed position. Two metallic clips were noted at 18 cm in an inlet patch. 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 These changes involved the mucosa along an irregular Z-line (32 cm from the incisors). Two tongues of salmon-colored mucosa were present from 31 to 32 cm and squamous islands were present from 20 to 32 cm. The maximum longitudinal extent of these esophageal mucosal changes was 12 cm in length. The decision was made to ablate with nitrous oxide balloon cryotherapy. Endoscopic visualization identified an ablation site including the entire visible Haji's segment that was not circumferential. The ablation catheter was inserted through the working channel of the endoscope. The first ablation area was identified. After aligning the spray diffuser with the mucosal target, liquid nitrous oxide was applied for 8 seconds. Ablation was repeated in a likewise fashion at a total of six sites. No complications were observed at the conclusion of therapy. The areas of the esophagus where Haji's mucosa had been ablated were examined. The entire examined stomach was normal. The first portion of the duodenum and second portion of the duodenum were normal. 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 - No specimens collected. Estimated Blood Loss: Estimated blood loss: none. Recommendation: - Discharge patient to home (ambulatory). - Resume previous diet PRN. - Patient has a contact number available for emergencies. The signs and symptoms of potential delayed complications were discussed with the patient. Return to normal activities tomorrow. Written discharge instructions were provided to the patient. Procedure Code(s): --- Professional --- 11954, Esophagogastroduodenoscopy, flexible, transoral; with ablation of tumor(s), polyp(s), or other lesion(s) (includes pre- and post-dilation and guide wire passage, when performed) CPT copyright 2020 [employer]. All rights reserved. Attending Participation: I personally performed the entire proced (more content not included)... [facility] 05-30-2025 Note HNO ID: [id number] Author: AURA FELDMAN APRN.CRNA Service: ? Author Type: Nurse Radiation Protection Technician Type: Anesthesia Procedure Notes Filed: 05/30/2025 13:21 Note Text: ANESTHESIOLOGY PROCEDURE NOTE PIV General Information Procedure Start Time/Medication Administration: 05/30/2025 1:14 PM Procedure End Time: 05/30/2025 1:14 PM Patient Location: OR Staffing Performed by: anesthesiologist Preparation Sterility Preparation: N/A Site Prep: alcohol Procedure Details Indication: need for IV access Needle Size/Type: 20 gauge angiocath Orientation: Left Location: Hand Imaging Guidance Used: No SIGNATURE: Aura Feldman APRN.LEVEE SUPERINTENDENT PATIENT NAME: Daniela Raymundo DATE: May 30, 2025 TIME: 1:21 PM CSN: [id number] [facility] 05-30-2025 History and physical note HISTORY AND PHYSICAL Daniela Raymundo, 80 year old female Current history and physical on file: No Is a new History and Physical required for today's visit? Yes Indication for procedure: Haji's esophagus PROCEDURE(S) SCHEDULED FOR: EGD (Esophagogastroduodenoscopy) with or without biopsies, removal of polyps or lesions, dilation ( any means), treatment of bleeding ( any means), Barrx treatment of Sarthak's Esophagus, image tube placement or cryo therapy treatment based on clinical findings. BASELINE BEHAVIOR: Calm BASELINE ORIENTATION: A & O x3 All medications and allergies reviewed: Yes Skin Assessment: Warm dry mucus membranes pink Airway/Respiratory Assessment: Airway: visualization of the uvula- Yes Mouth: opening greater than 2 fingerbreadths- Yes Neck: full range of motion- Yes Breath sounds clear/equal- Yes Cardiac Assessment: Regular rate and rhythm without murmur Abdominal Assessment: Abdomen soft, non-tender, no masses or organomegaly. Sedation Plan: MAC Additional Comments: None Norbert Dailey II, MD [facility] 05-30-2025 History and physical note HISTORY AND PHYSICAL Daniela Raymundo, 80 year old female Current history and physical on file: No Is a new History and Physical required for today's visit? Yes Indication for procedure: Haji's esophagus PROCEDURE(S) SCHEDULED FOR: EGD (Esophagogastroduodenoscopy) with or without biopsies, removal of polyps or lesions, dilation ( any means), treatment of bleeding ( any means), Barrx treatment of Sarthak's Esophagus, image tube placement or cryo therapy treatment based on clinical findings. BASELINE BEHAVIOR: Calm BASELINE ORIENTATION: A & O x3 All medications and allergies reviewed: Yes Skin Assessment: Warm dry mucus membranes pink Airway/Respiratory Assessment: Airway: visualization of the uvula- Yes Mouth: opening greater than 2 fingerbreadths- Yes Neck: full range of motion- Yes Breath sounds clear/equal- Yes Cardiac Assessment: Regular rate and rhythm without murmur Abdominal Assessment: Abdomen soft, non-tender, no masses or organomegaly. Sedation Plan: MAC Additional Comments: None Norbert Dailey II, MD documented in this encounter [facility] 05-30-2025 Note Q3 Patient Name: Daniela Raymundo Procedure Date: 05/30/2025 12:50 PM Date of : 1945 Admit Type: Outpatient Age: 80 Gender: Female Note Status: Finalized Attending MD: Norbert Dailey MD, [id number] Procedure: Upper GI endoscopy Indications: Follow-up of previous ablation treatment of Haji's esophagus Providers: Norbert Dailey MD Referring Physician: Norbert Dailey MD (Referring MD) Medicines: Monitored Anesthesia Care Complications: No immediate complications. Requesting Provider: Procedure: Pre-Anesthesia Assessment: - Prior to the procedure, a History and Physical was performed, and patient medications and allergies were reviewed. The patient's tolerance of previous anesthesia was also reviewed. The risks and benefits of the procedure and the sedation options and risks were discussed with the patient. All questions were answered, and informed consent was obtained. Prior Anticoagulants: The patient last took Plavix (clopidogrel) on the day of the procedure. ASA Grade Assessment: III - A patient with severe systemic disease. After reviewing the risks and benefits, the patient was deemed in satisfactory condition to undergo the procedure. After obtaining informed consent, the endoscope was passed under direct vision. Throughout the procedure, the patient's blood pressure, pulse, and oxygen saturations were monitored continuously. The Endoscope was introduced through the mouth, and advanced to the second part of duodenum. The upper GI endoscopy was accomplished with ease. The patient tolerated the procedure well. Moderate Sedation: MAC anesthesia was administered by the anesthesia team. Findings: The esophagus and gastroesophageal junction were examined with white light and narrow band imaging (NBI) from a forward view and retroflexed position. Two metallic clips were noted at 18 cm in an inlet patch. 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 These changes involved the mucosa along an irregular Z-line (32 cm from the incisors). Two tongues of salmon-colored mucosa were present from 31 to 32 cm and squamous islands were present from 20 to 32 cm. The maximum longitudinal extent of these esophageal mucosal changes was 12 cm in length. The decision was made to ablate with nitrous oxide balloon cryotherapy. Endoscopic visualization identified an ablation site including the entire visible Haji's segment that was not circumferential. The ablation catheter was inserted through the working channel of the endoscope. The first ablation area was identified. After aligning the spray diffuser with the mucosal target, liquid nitrous oxide was applied for 8 seconds. Ablation was repeated in a likewise fashion at a total of six sites. No complications were observed at the conclusion of therapy. The areas of the esophagus where Haji's mucosa had been ablated were examined. The entire examined stomach was normal. The first portion of the duodenum and second portion of the duodenum were normal. 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 - No specimens collected. Estimated Blood Loss: Estimated blood loss: none. Recommendation: - Discharge patient to home (ambulatory). - Resume previous diet PRN. - Patient has a contact number available for emergencies. The signs and symptoms of potential delayed complications were discussed with the patient. Return to normal activities tomorrow. Written discharge instructions were provided to the patient. Procedure Code(s): --- Professional --- 98639, Esophagogastroduodenoscopy, flexible, transoral; with ablation of tumor(s), polyp(s), or other lesion(s) (includes pre- and post-dilation and guide wire passage, when performed) CPT copyright 2020 [employer]. All rights reserved. Attending Participation: I personally performed the entire procedure. Scope In: 1:20:05 PM Scope Out: 1:37:[address] Norbert Dailey MD, MPH Norbert Dailey MD 05/30/2025 1:52:54 PM This report has been signed electronically by Norbert Dailey MD Number of Addenda: 0 Note Initiated On: 05/30/2025 12:50 PM [facility] 05-30-2025 Note HNO ID: [id number] Author: FERNANDO NEUMANN RN Service: Gastroenterology Author Type: Registered Nurse Type: Nursing Progress Note Filed: 05/30/2025 12:27 Note Text: Dr Dailey notified Elquis stopped 05/27/2025 Palvix not stopped took 05/29/2025 [facility] 05-30-[address] Dailey notified Elquis stopped 05/27/2025 Palvix not stopped took 05/29/2025 [facility] 05-30-2025 Note HNO ID: [id number] Author: FERNANDO NEUMANN RN Service: Gastroenterology Author Type: Registered Nurse Type: Nursing Progress Note Filed: 05/30/2025 12:14 Note Text: Dr Church anesthesia notified IV placed in procedure room due to patients tremors [facility] 05-30-[address] Church anesthesia notified IV placed in procedure room due to patients tremors [facility] 05-30-2025 Nurse Note PRE OP LEARNING ASSESSMENT PROCEDURE/SURGERY: GI PROCEDURES: EGD READINESS TO LEARN COGNITIVE ABILITY: Alert and oriented MOTIVATION TO LEARN: Interested FAMILY SUPPORT: High - Very involved in pt care PATIENT LEARNS BEST BY: Verbal Instruction FACTORS AFFECTING LEARNING: None PHYSICAL LIMITATIONS AFFECTING LEARNING: None Electronically Signed By: Fernando Neumann RN In Department: GASTROENTEROLOGY [facility] 04-14-2025 Telephone encounter Note Daniela calling #[phone] Calling because she can for sure not go off of Plavix. Wants to know if any other treatment can be done without going off of blood thinners. I did go over the telephone encounter from 03/09/25 I spoke to Daniela.She had a heart attack a month ago and required a cardiac stent. The admission was also complicated bythe occurrence of atrial fibrillationshe is currently on eliquis,Plavix and aspirin.It sounds like she's had some element of deconditioning because of this hospitalization additionally.I feel that we should wait on any endoscopic intervention at this point given the fact that patients on anticoagulants. I have asked her to call me in April and we will arrange for an endoscopy then.We will utilize cryotherapy which has an excellent safety profile when compared to RFA. Norbert Dailey II, MD Still would like clarification on what can be done Thank you Peyton Gonzalez [facility] 04-14-2025 Miscellaneous Notes Daniela calling #[phone] Calling because she can for sure not go off of Plavix. Wants to know if any other treatment can be done without going off of blood thinners. I did go over the telephone encounter from 03/09/25 I spoke to Daniela.She had a heart attack a month ago and required a cardiac stent. The admission was also complicated bythe occurrence of atrial fibrillationshe is currently on eliquis,Plavix and aspirin.It sounds like she's had some element of deconditioning because of this hospitalization additionally.I feel that we should wait on any endoscopic intervention at this point given the fact that patients on anticoagulants. I have asked her to call me in April and we will arrange for an endoscopy then.We will utilize cryotherapy which has an excellent safety profile when compared to RFA. Norbert Dailey II, MD Still would like clarification on what can be done Thank you Peyton Gonzalez documented in this encounter [facility] 03-09-2025 Telephone encounter Note Daniela calling #[phone] Patient calling requesting to speak to someone regarding her needing an EGD but she's had a heart attack and her learning support aide suggests she speaks with Dr. Dailey. I offered an appointment to discuss but she denied it. Last virtual visit - 09/09/22 Last EGD - 08/04/24 Thank you, Peyton Gonzalez I spoke to Daniela.She had a heart attack a month ago and required a cardiac stent. The admission was also complicated bythe occurrence of atrial fibrillationshe is currently on eliquis,Plavix and aspirin.It sounds like she's had some element of deconditioning because of this hospitalization additionally.I feel that we should wait on any endoscopic intervention at this point given the fact that patients on anticoagulants. I have asked her to call me in April and we will arrange for an endoscopy then.We will utilize cryotherapy which has an excellent safety profile when compared to RFA. Norbert Dailey II, MD [facility] 03-09-2025 Miscellaneous Notes Daniela calling #[phone] Patient calling requesting to speak to someone regarding her needing an EGD but she's had a heart attack and her learning support aide suggests she speaks with Dr. Dailey. I offered an appointment to discuss but she denied it. Last virtual visit - 09/09/22 Last EGD - 08/04/24 Thank you, Peyton Gonzalez I spoke to Daniela.She had a heart attack a month ago and required a cardiac stent. The admission was also complicated bythe occurrence of atrial fibrillationshe is currently on eliquis,Plavix and aspirin.It sounds like she's had some element of deconditioning because of this hospitalization additionally.I feel that we should wait on any endoscopic intervention at this point given the fact that patients on anticoagulants. I have asked her to call me in April and we will arrange for an endoscopy then.We will utilize cryotherapy which has an excellent safety profile when compared to RFA. Norbert Dailey II, MD documented in this encounter [facility] 03-09-2025 Evaluation + Plan note Associated Problem(s): Type 2 diabetes mellitus with other specified complication, without long-term current use of insulin On statin I believe her Cozaar was discontinued at discharge to avoid hypotension with initiation of sotalol. Off of sotalol and Cozaar her blood pressure is optimal in the office today. Reports most recent hemoglobin A1c was below 6.3. [facility] Work Phone: 03-09-2025 Miscellaneous Notes Associated Problem(s): Type 2 diabetes mellitus with other specified complication, without long-term current use of insulin On statin I believe her Cozaar was discontinued at discharge to avoid hypotension with initiation of sotalol. Off of sotalol and Cozaar her blood pressure is optimal in the office today. Reports most recent hemoglobin A1c was below 6.3. 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 Denies bleeding diatheses Associated Problem(s): Paroxysmal atrial fibrillation (Multi) January 2025 called into the office with recurrent palpitations and shortness of breath. Holter monitor showed A-fib with RVR. She then was admitted February 11, 2025 at [facility]. She was placed on sotalol. February 17, 2025 uneventful cardioversion and discharged on sotalol 80 mg twice daily. She had then called into the office with concerns of low heart rate, unable to tolerate sotalol due to making her feel awful . She had follow-up February 2025 Holter monitor (she was not taking sotalol at that time and I am unclear how long she had been off of the medication) with normal sinus rhythm average heart rate of 53. 1% PVC burden. EKG in office today sinus rhythm with PACs. She follows her heart rate closely on her Fitbit. Associated Problem(s): Hyperlipidemia Presents to the office on pitavastatin; unfortunately, the medication is becoming cost prohibitive. She has been intolerant to multiple statins in the past. She has not tried lovastatin and agrees to initiate. Otherwise, she is intolerant to Zetia Refuses Repatha/Praluent Would not do Leqvio Associated Problem(s): Essential hypertension Optimal in office Associated Problem(s): Cardiac and Vasculature January 2025 TTE LVEF 45-50% Left atrium mildly dilated MR mild Associated Problem(s): Atherosclerosis of coronary artery bypass graft without angina pectoris Remote CABG February 13, [address] Sol Protected LM/oCX PCI/Skypoint [id number] PATEL-LAD patent SVG - RCA patent SVG - OM occluded documented in this encounter [facility] Work Phone: 03-09-2025 Evaluation + Plan note Associated Problem(s): alf (current) use of anticoagulants CHADS VASc 7 (prior TIA) chronically anticoagulated full dose Eliquricardo age 80, weight 62 kg, creatinine 1.2. Denies bleeding diatheses [facility] Work Phone: 03-09-2025 Evaluation + Plan note Associated Problem(s): Paroxysmal atrial fibrillation (Multi) January 2025 called into the office with recurrent palpitations and shortness of breath. Holter monitor showed A-fib with RVR. She then was admitted February 11, 2025 at [facility]. She was placed on sotalol. February 17, 2025 uneventful cardioversion and discharged on sotalol 80 mg twice daily. She had then called into the office with concerns of low heart rate, unable to tolerate sotalol due to making her feel awful . She had follow-up February 2025 Holter monitor (she was not taking sotalol at that time and I am unclear how long she had been off of the medication) with normal sinus rhythm average heart rate of 53. 1% PVC burden. EKG in office today sinus rhythm with PACs. She follows her heart rate closely on her Fitbit. [facility] Work Phone: 03-09-2025 Evaluation + Plan note Associated Problem(s): Hyperlipidemia Presents to the office on pitavastatin; unfortunately, the medication is becoming cost prohibitive. She has been intolerant to multiple statins in the past. She has not tried lovastatin and agrees to initiate. Otherwise, she is intolerant to Zetia Refuses Repatha/Praluent Would not do Leqvio [facility] Work Phone: 03-09-2025 Evaluation + Plan note Associated Problem(s): Essential hypertension Optimal in office [facility] Work Phone: 03-09-2025 Evaluation + Plan note Associated Problem(s): Cardiac and Vasculature January 2025 TTE LVEF 45-50% Left atrium mildly dilated MR mild [facility] Work Phone: 03-09-2025 Evaluation + Plan note Associated Problem(s): Atherosclerosis of coronary artery bypass graft without angina pectoris Remote CABG February 13, [address] Sol Protected LM/oCX PCI/Skypoint [id number] PATEL-LAD patent SVG - RCA patent SVG - OM occluded [facility] Work Phone: 03-08-2025 History of Presen t illness Narrative Chief Complaint I could not take that medication Reason for Visit Patient presents to the office today for outpatient follow-up for hospital follow-up. Last evaluated in clinic by Dr. Sol May 2024. Presents today ambulatory with steady gait. Accompanied by spouse In January 2025 she had called into the office reporting shortness of breath, palpitations, dizziness and chest pain. Subsequent Holter showed A-fib with RVR, due to chest pain she was instructed to report to local emergency department. January 2025 admit at [facility]. She was managed by Dr. Sol. February 13, 2025 had cardiac cath with PCI to protected left main/ostial circumflex. Her LVEF was 45 to 50% which is pretty consistent with history. She was initiated on sotalol and on February 17, 2025 had uneventful cardioversion. She was discharged home in normal sinus rhythm. Changes to medical regimen included addition of sotalol 80 mg twice daily, Plavix 75 mg daily and aspirin 81 mg daily. She then called into the office with multiple complaints regarding sotalol. It made her feel awful . I repeated a Holter monitor and she was not on sotalol but I cannot verify if she had been off of it for greater than 48 hours. Nonetheless, she had maintenance of sinus rhythm. History of Present Illness Patient is an 80-year-old female who presents to the office today where she reports feeling better off of that medicine . She still reports that she is making very slow but steady progress. She does agree to begin cardiac rehab. She reports her angina symptom was a funny feeling in my arms up my shoulder into my back . She denies any recurrent, no nitroglycerin use. In regards to atrial fibrillation is symptomatic with palpitations, also notices an elevated heart rate on her Fitbit. She reports that over the last couple weeks her heart rate has been in the 60-70s. In regards to DAPT and anticoagulation she had 1 brief episode of epistaxis but denies any type of melena, hematemesis or hematochezia. Her primary concern is just feeling fatigued and worn out since discharge. She does report dyspnea on exertion with 1 flight of stairs but reports this is no change from her baseline. She denies orthopnea or PND. Other voiced concerns include: Cost of livalo -intolerance to pretty much all statins except for Mevacor and agrees to try. Would not try any new medications . Requesting to interrupt DAPT. Apparently is undergoing cryotherapy for Haji's esophagus and has 3 more procedures left. Instructed her that under no circumstance should she interrupt/hold/discontinue DAPT without approval of Dr. Sol. Due to NSTEMI and left main stenting recommendations would be no interruption for 12-month. Although not very pleased, she does verbalize understanding of these instructions. Will review with Dr. Sol and likely discontinue aspirin 30 days after PCI due to concomitant Eliquis. She has also been instructed that she could hold Eliquis only for her tooth extraction but cannot interrupt aspirin and Plavix. Discussed atrial fibrillation management and antiarrhythmic of amiodarone. She simply does not want to take any additional medication and her preference would be to monitor for recurrent A-fib and consider treatment only if absolutely necessary. Patient reports that overall has no complaint(s) of chest pain, chest pressure/discomfort, claudication, dyspnea, exertional chest pressure/discomfort, and irregular heart beat Review of Systems Constitutional: Positive for malaise/fatigue. Cardiovascular: Negative for chest pain, dyspnea on exertion, irregular heartbeat, leg swelling, near-syncope, orthopnea, palpitations, paroxysmal nocturnal dyspnea and syncope. Will repeat baseline labs to verify no anemia due to persistent fatigue. Visit Vitals BP 136/58 (BP Location: Left arm, Patient Position: Sitting) Pulse 78 Ht 1.6 m (5' 3 ) Wt 62.6 kg (138 lb) BMI 24.45 kg/m Smoking Status Former BSA 1.67 m Physical Exam Vitals and nursing note reviewed. HENT: Head: Normocephalic. Cardiovascular: Rate and Rhythm: Normal rate and regular rhythm. Occasional Extrasystoles are present. Heart sounds: Normal heart sounds. Pulmonary: Effort: Pulmonary effort is normal. Breath sounds: Normal breath sounds. Abdominal: Palpations: Abdomen is soft. Musculoskeletal: Right lower leg: No edema. Left lower leg: No edema. Skin: General: Skin is warm and dry. Neurological: General: No focal deficit present. Mental Status: She is alert. Psychiatric: Mood and Affect: Mood normal. Behavior: Behavior normal. ALLERGIES: Metoprolol, Sotalol, Osbaldo inhibitors, Ezetimibe, and Tnkjnfb-rot-fic reductase inhibitors Current Outpatient Medications Medication Instructions ALPRAZolam (Xanax) 0.5 mg tablet 1 tablet, Nightly PRN apixaban (Eliquis) 5 mg tablet 1 tablet, 2 times daily aspirin 81 mg EC tablet 1 tablet, Daily clopidogrel (PLAVIX) 75 mg, oral, Daily esomeprazole (NexIUM) [address] capsule 1 capsule, 2 times daily fluticasone (Flonase) 50 mcg/actuation nasal spray Administer into affected nostril(s). furosemide (Lasix) 40 mg tablet 1 tablet, Daily glucosamine-chondroitin 500-400 mg tablet 2 tablets, Daily levocetirizine (Xyzal) 5 mg tablet See Instructions, Instructions: TAKE 1 TABLET EVERY EVENING, # 90 tab(s), 1 Refill(s), Pharmacy: [facility], TAKE 1 TABLET EVERY EVENING, 160.02, cm, 06/24/23 13:08:00 EDT, Height levothyroxine (Synthroid, Levoxyl) 75 mcg tablet 1 tablet, Daily lovastatin (MEVACOR) 20 mg, oral, Daily with evening meal magnesium glycinate 240 mg, Daily potassium citrate 99 mg capsule 1 tablet, 2 times daily SITagliptin phosphate (Januvia) 100 mg tablet 1 tablet, Daily Assessment: Atherosclerosis of coronary artery bypass graft without angina pectoris Remote CABG February 13, [address] Sol Protected LM/oCX PCI/Skypoint [id number] PATEL-LAD patent SVG - RCA patent SVG - OM occluded Cardiac and Vasculature January 2025 TTE LVEF 45-50% Left atrium mildly dilated MR mild Essential hypertension Optimal in office Hyperlipidemia Presents to the office on pitavastatin; unfortunately, the medication is becoming cost prohibitive. She has been intolerant to multiple statins in the past. She has not tried lovastatin and agrees to initiate. Otherwise, she is intolerant to Zetia Refuses Repatha/Praluent Would not do Leqvio Paroxysmal atrial fibrillation (Multi) January 2025 called into the office with recurrent palpitations and shortness of breath. Holter monitor showed A-fib with RVR. She then was admitted February 11, 2025 at [facility]. She was placed on sotalol. February 17, 2025 uneventful cardioversion and discharged on sotalol 80 mg twice daily. She had then called into the office with concerns of low heart rate, unable to tolerate sotalol due to making her feel awful . She had follow-up February 2025 Holter monitor (she was not taking sotalol at that time and I am unclear how long she had been off of the medication) with normal sinus rhythm average heart rate of 53. 1% PVC burden. EKG in office today sinus rhythm with PACs. She follows her heart rate closely on her Fitbit. 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 Denies bleeding diatheses Type 2 diabetes mellitus with other specified complication, without long-term current use of insulin On statin I believe her Cozaar was discontinued at discharge to avoid hypotension with initiation of sotalol. Off of sotalol and Cozaar her blood pressure is optimal in the office today. Reports most recent hemoglobin A1c was below 6.3. Plan: Through informed decision making process incorporating patients unique circumstances, the following treatment plan will be initiated: 1. Prescription drug management of cardiovascular medication for efficacy, adherence to treatment, side effect assessment and polypharmacy. Current treatment clinically warranted and to continue with following modifications: - Stop pitavastatin due to cost - Begin lovastatin 20mg daily 2. Labs (chem6, CBC) 3. Referral to cardiac rehab at [facility] 4. Return for follow-up; in the interim, contact the office if new symptoms arise. Dr. Sol as scheduled 5. You can not stop or interrupt Plavix/clopidogrel without ok from Dr. Ebenezer Gaona MSN, MILLINERY COPYIST-PEARL FISHERMAN, PMHNP-[facility] [place], [place] Please excuse any errors in grammar or translation related to this dictation. Voice recognition software was utilized to prepare this document. documented in this encounter [facility] Work Phone: 03-08-2025 Instructions JOS Ballard - 03/08/2025 2:00 PM EDT Please bring all medicines, vitamins, and herbal supplements with you when you come to the office. Prescriptions will not be filled unless you are compliant with your follow up appointments or have a follow up appointment scheduled as per instruction of your physician. Refills should be requested at the time of your visit. PLAN: Through informed decision making process incorporating patients unique circumstances, the following treatment plan will be initiated: 1. Prescription drug management of cardiovascular medication for efficacy, adherence to treatment, side effect assessment and polypharmacy. Current treatment clinically warranted and to continue with following modifications: - Stop pitavastatin due to cost - Begin lovastatin 20mg daily 2. Labs (chem6, CBC) 3. Referral to cardiac rehab at [facility] 4. Return for follow-up; in the interim, contact the office if new symptoms arise. Dr. Sol as scheduled 5. You can not stop or interrupt Plavix/clopidogrel without ok from Dr. Sol documented in this encounter [facility] Work Phone: 02-28-2025 History of Presen t illness Narrative Patient here for EKG visit ordered by Gilberto Gaona FRONT END SOFTWARE ENGINEER due to bradycardia. Dr. Sol in suite to review EKG prior to discharge. Medication list Updated verbally. denies cardiac complaints. To Dr. Sol to read To Gilberto Ortiz NP for reiew Vitals: 02/28/25 1316 BP: (!) 122/48 BP Location: Left arm Patient Position: Sitting Pulse: 52 Weight: 63.5 kg (140 lb) Height: 1.6 m (5' 3 ) documented in this encounter [facility] Work Phone: 02-17-2025 Discharge summary Note Date/Time February 17, 2025 2:59pm [facility] [address] [place] [address] Discharge Summary Signed Patient: Daniela Raymundo MR#: [id number] : 1945 Acct:[id number] Age/Sex: 80 / F Adm Date: 5 Loc: Room: [address] [place] [address]: Acosta Bo MD Copies to: MD Sonja Fontenot MD~ Providers Date of Discharge: 02/17/25 Discharging Provider: Acosta Bo Primary Care Provider: Sonja Quezada Consults: 02/11/25 15:55 Consult to Cardiology Routine Comment: Consulting Provider: Eliezer Potts Reason For Exam: A-Fib RVR elevated troponin. Has Provider Been Notified: Yes Date of Notification: 02/11/25 Time of Notification: 17:57 Discharge Diagnosis (1) NSTEMI (non-ST elevated myocardial infarction): (2) Atrial fibrillation with RVR: (3) Coronary artery disease: (4) Tremor: (5) Angina at rest: (6) History of coronary artery bypass graft x 3: (7) Hypothyroidism: (8) Anxiety: (9) GERD (gastroesophageal reflux disease): (10) Acute hypoxic respiratory failure: Final Diagnosis Final Discharge Diagnosis: As above Summary Hospital Course Hospital course: Ms. Raymundo is an 80yo F with PMH of atrial fibrillation, CAD status post CABG in 2010, hypothyroidism, anxiety disorder, essential tremor, GERD who presented to the emergency department with complaints of dyspnea on exertion that had worsened in the days prior to hospitalization. This was associated with chest pains as well. Upon presentation, BNP elevated at 579 and patient was requiringsupplemental O2. Patient's troponin significantly elevated and cardiology was consulted for their assessment. Patient underwent cardiac catheterization, and ultimately underwent PCI of the left main?ostial circumflex with 1 stent. Patient was in atrial fibrillation with RVR after the cardiac cath was performed. Resting heart rate remained in the 110s/120s. She was increased on sotalol, but remained in atrial fibrillation with RVR. She was ultimately recommended for cardioversion, which she underwent on 02/17/2025. She had returnof normal sinus rhythm after 1 cardioversion and was recommended for discharge. She was discharged in stable condition home with adjustment in home cardiac regimen. She is maintaining on aspirin, Plavix and Eliquis for short period of time, and this will be changed to single antiplatelet with Eliquis in the near future. She will continue on sotalol 80 mg twice daily for rate control on discharge. She was discharged in stable condition. 35 minutes spent coordinating the discharge of this patient Time Spent with Patient Time spent providing/coordinating discharge services (# min): 35 Surgeries and Procedures Operation Date: 02/13/25 09:30 Actual Procedures p CL Stent 1st Vessel LM RUSTY - W Emerson Sol DO p CL Closure Device Placement 0 - W Emerson Sol DO p CL LHC & COR Angio w/grafts - W Emerson Sol DO Discharge Plan Discharge Plan Patient Disposition: Home Activity: Ambulate as Tolerated Comment: See cardiac cath discharge instructions for activity restrictions Diet: Low-Sodium Additional Instructions: Dietitian recommendations: Ensure plus, 1 container, twice daily with meals DISCHARGE INSTRUCTIONS FOR ANGIOPLASTY/CORONARY/PERIPHERAL/STENT IMPLANT FOR ADULT ANTICOAGULATION -Since the greatest risk of a blood clot forming with the stent occurs in the first 2-3 weeks after implantation, you will need to take anticoagulants for at least 12 months. ANTICOAGULATION MEDICATION: Aspirin 81mg once a day and Clopidogrel (Plavix) 75mg once a day STATIN MEDICATION: Livalo 2 mg daily Drug-Eluting Stent (RUSTY) duration DO NOT discontinue Plavix/Aspirin during the first few months regardless of whatyou are advised by your family doctor or pharmacist, without first calling the learning support aide who implanted the stent. If you require pain relief during this time, please take only ACETAMINOPHEN (TYLENOL)- NO additional aspirin or ibuprofen. DISCHARGE ACTIVITIES ARE FOLLOWS: First week after discharge: -Take it easy at home, no strenuous activity. -Do not lift or pull objects over 10-15 pounds, including children, and groceries for four weeks. If puncture site is at wrist do NOT lift more than three pounds for three days. - May walk up stairs. -May shower. -No excessive scrubbing of the affected site (groin). -May ride in car. -May resume sexual intercourse after 1-2 weeks. -No MRI for 12 days. -May drive in 4-7 days. -If puncture site is at the wrist do not manipulate the wrist for 24 hours, and no soaking wrist for three days. Second Week: -May take a bath -May start walking 3 times a week for 15-20 minutes at a leisurely pace. You should be able to carry on a conversation comfortably without feeling winded. -No strenuous activity as in jogging, running, weight lifting, stair steppers, etc. until the learning support aide approves these activities. Check with the learning support aide on your first follow-up visit. CALL YOUR LEAD SECTION SUPERVISOR: -If bleeding should occur from the catheter insertion site- apply pressure to the site then immediately call us. -Report any fever, redness, drainage, increased swelling, or firmness at the catheter insertion site. Some bruising or slight swelling may be present at thetime of discharge. -Should arm or leg become cold, numb, white, or blue, contact the learning support aide immediately. -IF you should experience episodes of angina, e.g. chest discomfort, heaviness, tightness, pressure burning with or without radiation to the neck, jaw, arms or back- use 1 Nitrostat tablet under your tongue every 5-10 minutes and up to three tablets. IF NO RELIEF, CALL 911 or GO TO THE NEAREST EMERGENCY ROOM. -Please notify our office if you have recurrent angina. -Cardiac Rehab Education Provided. Participation in the Cardiopulmonary Rehabilitation program is recommended. The attending learning support aide or a nurse clinician should provide you with specificinstructions regarding activity, diet, medications, and further follow up for you. Follow the medication instructions provided on your discharge. If the dosages and instructions on this sheet differ from the dosage and instructions on the bottle, follow the instructions on the bottle. [facility] is not responsible for incorrect prescription information provided by thepatient during their visit. Do not stop your medications without consulting your health care provider. Please take the list with you to your next doctor's appointment. Instructions: Know your Meds Prescriptions: New sotalol 80 mg Tablet 80 mg PO BID 30 Days Qty: 60 12RF clopidogrel 75 mg Tablet 75 mg PO DAILY 30 Days Qty: 30 12RF nitroglycerin 0.4 mg Tablet, Sublingual 0.4 mg sublingual Q5M PRN (Reason: Chest Pain) 30 Days Qty: 25 3RF aspirin [Children's Aspirin] 81 mg Tablet,Chewable 81 mg PO DAILY Qty: 0 0RF Continued Eliquis 5 mg Tablet 5 mg PO BID 30 Days Qty: 60 5RF furosemide [Lasix] 40 mg Tablet 40 mg PO DAILY levothyroxine 75 mcg Tablet 75 mcg PO DAILY alprazolam 0.5 mg tablet 0.5 mg PO DAILY PRN (Reason: Anxiety) potassium 99 mg Tablet 99 mg PO DAILY esomeprazole magnesium 40 mg capsule,delayed release(DR/EC) 40 mg PO BID Januvia 100 mg Tablet 100 mg PO DAILY pitavastatin calcium [Livalo] 2 mg Tablet 2 mg PO DAILY levocetirizine 5 mg tablet 5 mg PO DAILY Discontinued losartan 25 mg tablet 25 mg PO DAILY aspirin 81 mg Capsule 81 mg PO .mwf Patient Comments: pt takes uaw-oii-fidlah Follow Up: Gilberto Gaona APRN [Nurse Practitioner] - 02/22/25 9:00 am Sonja Quezada MD [Primary Care Provider] - 02/21/25 2:00 pm (You have been scheduled for a follow up appointment for the following date and time, please call to reschedule if needed.) Continuity of Care Document Health Concerns: A [facility] screening has identified you as FRAIL or AT RISK FOR FRAILTY. This puts you at a higher risk for infection, illness, falls,and other injuries. Here are four ways to help you reduce your risk of frailty: 1. IDENTIFY EARLY SIGNS OF FRAILTY ? Discuss contributing factors and concerns with your doctor 2. BE ACTIVE ? Walking and light strengthening exercises will help reduce weakness 3. EAT WELL ? Aim for three healthy meals a day that are high in protein 4. THINK POSITIVE ? Keep your mind active by being sociable and continuing to learn References: Stay Strong: Four Ways to Beat the Frailty Risk [email or web address]-edc-zj evention/pckc-wapmfv-mfsn- atjf-tl-iclu-lvj-pcolqln-nlly Exam Physical Exam Vital Signs: Temp Pulse Resp BP Pulse Ox O2 Del Method O2 Flow Rate 98.0 F 65 39 H 131/68 95 Room Air 2 02/17/25 12:00 02/17/25 13:00 02/17/25 12:54 02/17/25 12:54 02/17/25 12:52 02/17/25 12:00 02/16/25 16:00 Narrative: GEN: Resting in bed. Does seem to have increased work of breathing. Neck: No JVD. No thyromegaly. No lymphadenopathy. Lungs: Diffuse expiratory wheezing noted throughout both lung chan Heart: RRR. Patient remains significantly tachycardic, with resting heart rate in the 110s?120s Abdomen: Soft, normal bowel sounds, no rigidity, guarding, or acute peritoneal signs. Extremities: No swelling or cords in the calves bilaterally, no edema in the ankles bilaterally. Neuro: Does have a strong tremor at baseline. Strength appears 5/5 throughout Diagnostic Studies Completed and Pending Studies Pending studies at discharge: 02/17/25 09:00 EKG [ECG 12 lead ECG] IN AM 02/18/25 09:00 EKG [ECG 12 lead ECG] IN AM 02/19/25 09:00 EKG [ECG 12 lead ECG] IN AM 02/20/25 09:00 EKG [ECG 12 lead ECG] IN AM Labs on day of discharge: 02/17/25 05:15: Corrected WBC 12.0 H, Uncorrected WBC Count 12.0 H, RBC 3.63, Hgb 9.8 L, Hct 29.8 L, MCV 82.1, MCH 27.0, MCHC 32.9, RDW 14.8, Plt Count 146 L,MPV 9.7, Neut % (Auto) 60.7, Lymph % (Auto) 24.2, Beaver % (Auto) 10.6, Eos % (Auto) 3.3, Baso % (Auto) 1.2, Nucleat RBC Rel Count 0.1, Neut # (Auto) 7.3, Lymph # (Auto) 2.9, Beaver # (Auto) 1.3 H, Eos # (Auto) 0.4, Baso # (Auto) 0.1, PHA Creatinine Clear 33.09, Sodium 138, Potassium 3.9, Chloride 98, Carbon Dioxide 34.6 H, Anion Gap 9.3, BUN 26 H, Creatinine 1.20, Est GFR (CKD-EPI) 45.195, Glucose 155 H, Calcium 9.3 Documented By: Acosta Bo MD [id number] Signed By: <Electronically signed by Acosta Bo MD> 02/17/25 [facility] Work Phone: [phone] 729-527405-23-2025 [place] [address] Discharge Summary Signed Patient: Daniela Raymundo MR#: [id number] : 1945 Acct:[id number] Age/Sex: 80 / F Adm Date: 5 Loc: Room: [address] [place] [address]: Acosta Bo MD Copies to: MD Sonja Fontenot MD~ Providers Date of Discharge: 02/17/25 Discharging Provider: Acosta Bo Primary Care Provider: Sonja Quezada Consults: 02/11/25 15:55 Consult to Cardiology Routine Comment: Consulting Provider: Eliezer Potts Reason For Exam: A-Fib RVR elevated troponin. Has Provider Been Notified: Yes Date of Notification: 02/11/25 Time of Notification: 17:57 Discharge Diagnosis (1) NSTEMI (non-ST elevated myocardial infarction): (2) Atrial fibrillation with RVR: (3) Coronary artery disease: (4) Tremor: (5) Angina at rest: (6) History of coronary artery bypass graft x 3: (7) Hypothyroidism: (8) Anxiety: (9) GERD (gastroesophageal reflux disease): (10) Acute hypoxic respiratory failure: Final Diagnosis Final Discharge Diagnosis: As above Summary Hospital Course Hospital course: Ms. Raymundo is an 80yo F with PMH of atrial fibrillation, CAD status post CABG in 2010, hypothyroidism, anxiety disorder, essential tremor, GERD who presented to the emergency department with complaints of dyspnea on exertion that had worsened in the days prior to hospitalization. This was associatedwith chest pains as well. Upon presentation, BNP elevated at 579 and patient was requiringsupplemental O2. Patient's troponin significantly elevated and cardiology was consulted for their assessment.Patient underwent cardiac catheterization, and ultimately underwent PCI of the left main?ostial circumflex with 1 stent. Patient was in atrial fibrillation with RVR after the cardiac cath was performed. Resting heart rate remained in the 110s/120s. She was increased on sotalol, but remained in atrial fibrillation with RVR. She was ultimately recommended for cardioversion, which she underwent on 02/17/2025. She had returnof normal sinus rhythm after 1 cardioversion and was recommended for discharge. She was discharged in stable condition home with adjustment in home cardiac regimen. She is maintaining on aspirin, Plavix and Eliquis for short period of time, and this will be changed to single antiplatelet with Eliquis in the near future. She will continue on sotalol 80 mg twice daily for rate control on discharge. She was discharged in stable condition. 35 minutes spent coordinating the discharge of this patient Time Spent with Patient Time spent providing/coordinating discharge services (# min): 35 Surgeries and Procedures Operation Date: 02/13/25 09:30 Actual Procedures p CL Stent 1st Vessel LM RUSTY - W Emerson Sol DO p CL Closure Device Placement 0 - W Emerson Sol DO p CL LHC & COR Angio w/grafts - W Emerson Sol DO Discharge Plan Discharge Plan Patient Disposition: Home Activity: Ambulate as Tolerated Comment: See cardiac cath discharge instructions for activity restrictions Diet: Low-Sodium Additional Instructions: Dietitian recommendations: Ensure plus, 1 container, twice daily with meals DISCHARGE INSTRUCTIONS FOR ANGIOPLASTY/CORONARY/PERIPHERAL/STENT IMPLANT FOR ADULT ANTICOAGULATION -Since the greatest risk of a blood clot forming with the stent occurs in the first 2-3 weeks afterimplantation, you will need to take anticoagulants for at least 12 months. ANTICOAGULATION MEDICATION: Aspirin 81mg once a day and Clopidogrel (Plavix) 75mg once a day STATIN MEDICATION: Livalo 2 mg daily Drug-Eluting Stent (RUSTY) duration DO NOT discontinue Plavix/Aspirin during the first few months regardless of whatyou are advised by your family doctor or pharmacist, without first calling the learning support aide who implanted the stent. If you require pain relief during this time, please take only ACETAMINOPHEN (TYLENOL)- NO additional aspirin or ibuprofen. DISCHARGE ACTIVITIES ARE FOLLOWS: First week after discharge: -Take it easy at home, no strenuous activity. -Do not lift or pull objects over 10-15 pounds, including children, and groceries for four weeks. If puncture site is at wrist do NOT lift more than three pounds for three days. - May walk up stairs. -May shower. -No excessive scrubbing of the affected site (groin). -May ride in car. -May resume sexual intercourse after 1-2 weeks. -No MRI for 12 days. -May drive in 4-7 days. -If puncture site is at the wrist do not manipulate the wrist for 24 hours, and no soaking wrist for three days. Second Week: -May take a bath -May start walking 3 times a week for 15-20 minutes at a leisurely pace. You should be able to carry on a conversation comfortably without feeling winded. -No strenuous activity as in jogging, running, weight lifting, stair steppers, etc. until the learning support aide approves these activities. Check with the learning support aide on your first follow-up visit. CALL YOUR LEAD SECTION SUPERVISOR: -If bleeding should occur from the catheter insertion site- apply pressure to the site then immediately call us. -Report any fever, redness, drainage, increased swelling, or firmness at the catheter insertion site. Some bruising or slight swelling may be present at thetime of discharge. -Should arm or leg become cold, numb, white, or blue, contact the learning support aide immediately. -IF you should experience episodes of angina, e.g. chest discomfort, heaviness, tightness, pressureburning with or without radiation to the neck, jaw, arms or back- use 1 Nitrostat tablet under yourtongue every 5-10 minutes and up to three tablets. IF NO RELIEF, CALL 911 or GO TO THE NEAREST EMERGENCY ROOM. -Please notify our office if you have recurrent angina. -Cardiac Rehab Education Provided. Participation in the Cardiopulmonary Rehabilitation program is recommended. The attending learning support aide or a nurse clinician should provide you with specificinstructions regarding activity, diet, medications, and further follow up for you. Follow the medication instructions provided on your discharge. If the dosages and instructions on this sheet differ from the dosage and instructions on the bottle, follow the instructions on the bottle. [facility] is not responsible for incorrect prescription information provided by thepatient during their visit. Do not stop your medications without consulting your health care provider. Please take the list with you to your next doctor's appointment. Instructions: Know your Meds Prescriptions: New sotalol 80 mg Tablet 80 mg PO BID 30 Days Qty: 60 12RF clopidogrel 75 mg Tablet 75 mg PO DAILY 30 Days Qty: 30 12RF nitroglycerin 0.4 mg Tablet, Sublingual 0.4 mg sublingual Q5M PRN (Reason: Chest Pain) 30 Days Qty: 25 3RF aspirin [Children's Aspirin] 81 mg Tablet,Chewable 81 mg PO DAILY Qty: 0 0RF Continued Eliquis 5 mg Tablet 5 mg PO BID 30 Days Qty: 60 5RF furosemide [Lasix] 40 mg Tablet 40 mg PO DAILY levothyroxine 75 mcg Tablet 75 mcg PO DAILY alprazolam 0.5 mg tablet 0.5 mg PO DAILY PRN (Reason: Anxiety) potassium 99 mg Tablet 99 mg PO DAILY esomeprazole magnesium 40 mg capsule,delayed release(DR/EC) 40 mg PO BID Januvia 100 mg Tablet 100 mg PO DAILY pitavastatin calcium [Livalo] 2 mg Tablet 2 mg PO DAILY levocetirizine 5 mg tablet 5 mg PO DAILY Discontinued losartan 25 mg tablet 25 mg PO DAILY aspirin 81 mg Capsule 81 mg PO .mwf Patient Comments: pt takes [id number] Follow Up: Gilberto Gaona APRN [Nurse Practitioner] - 02/22/25 9:00 am Sonja Quezada MD [Primary Care Provider] - 02/21/25 2:00 pm (You have been scheduled for a follow up appointment for the following date and time, please call to reschedule if needed.) Continuity of Care Document Health Concerns: A [facility] screening has identified you as FRAIL or AT RISK FOR FRAILTY. This puts you at a higher risk for infection, illness, falls,and other injuries. Here are four ways to help you reduce your risk of frailty: 1. IDENTIFY EARLY SIGNS OF FRAILTY ? Discuss contributing factors and concerns with your doctor 2. BE ACTIVE ? Walking and light strengthening exercises will help reduce weakness 3. EAT WELL ? Aim for three healthy meals a day that are high in protein 4. THINKPOSITIVE ? Keep your mind active by being sociable and continuing to learn References: Stay Strong:Four Ways to Beat the Frailty Risk https://www.[facility].org/health/wuhdabes-jsr-xmdglypkrx/st by-mrpbug-hrys- bhry-wo-cjzj-mxg-fpjzqww-arpu Exam Physical Exam Vital Signs: Temp Pulse Resp BP Pulse Ox O2 Del Method O2 Flow Rate 98.0 F 65 39 H 131/68 95 Room Air 2 02/17/25 12:00 02/17/25 13:00 02/17/25 12:54 02/17/25 12:54 02/17/25 12:52 02/17/25 12:00 02/16/25 16:00 Narrative: GEN: Resting in bed. Does seem to have increased work of breathing. Neck: No JVD. No thyromegaly. No lymphadenopathy. Lungs: Diffuse expiratory wheezing noted throughout both lung chan Heart: RRR. Patient remains significantly tachycardic, with resting heart rate in the 110s?120s Abdomen: Soft, normal bowel sounds, no rigidity, guarding, or acute peritoneal signs. Extremities: No swelling or cords in the calves bilaterally, no edema in the ankles bilaterally. Neuro: Does have a strong tremor at baseline. Strength appears 5/5 throughout Diagnostic Studies Completed and Pending Studies Pending studies at discharge: 02/17/25 09:00 EKG [ECG 12 lead ECG] IN AM 02/18/25 09:00 EKG [ECG 12 lead ECG] IN AM 02/19/25 09:00 EKG [ECG 12 lead ECG] IN AM 02/20/25 09:00 EKG [ECG 12 lead ECG] IN AM Labs on day of discharge: 02/17/25 05:15: Corrected WBC 12.0 H, Uncorrected WBC Count 12.0 H, RBC 3.63, Hgb 9.8 L, Hct 29.8 L, MCV 82.1, MCH 27.0, MCHC 32.9, RDW 14.8, Plt Count 146 L,MPV 9.7, Neut % (Auto) 60.7, Lymph % (Auto) 24.2, Beaver % (Auto) 10.6, Eos % (Auto) 3.3, Baso % (Auto) 1.2, Nucleat RBC Rel Count 0.1, Neut # (Auto) 7.3, Lymph # (Auto) 2.9, Beaver # (Auto) 1.3 H, Eos # (Auto) 0.4, Baso # (Auto) 0.1, PHA Creatinine Clear 33.09, Sodium 138, Potassium 3.9, Chloride 98, Carbon Dioxide 34.6 H, Anion Gap 9.3, BUN 26 H, Creatinine 1.20, Est GFR (CKD-EPI) 45.195, Glucose 155 H, Calcium 9.3 Documented By: Acosta Bo MD 5 1353 Signed By: 02/17/25 1459 [facility]05-23-2025 [place] [address] Cardioversion Procedure Note Signed Patient: Daniela Raymundo MR#: [id number] : 1945 Acct:[id number] Age/Sex: 80 / F Adm Date: 5 Loc: Room: [address] [place] [address] Type: ADM IN Attending Dr: Acosta Bo MD Copies to: MD Natty Fonetnot MD Samuel E Ross MD~ Cardioversion PRE PROCEDURE DATE OF PROCEDURE: 02/17/2025 PRE-OPERATIVE DIAGNOSIS: Atrial Fibrillation ASA CLASSIFICATION: 2 MALLAMPATI CLASSIFICATION: Class 2: PROCEDURE PROCEDURE PERFORMED: Elective direct current cardioversion under conscious sedation PROCEDURE DESCRIPTION: After informed consent obtained by explaining risks, benefits, and alternatives to patient. Informed consent signed. Continuous blood pressure, O2 saturations, and heart rate monitoring was established. A total of 0.5 mg of atropine were given then 30 mg Diprivan was given and using 120 joules, a synchronized shockwas delivered with anterior/posterior pads position. This resulted in the conversion to normal sinus rhythm. No complications were noted. COMPLICATIONS: None PLAN: 1. Successful cardioversion of atrial fibrillation to normal sinus rhythm. Post cardioversion QTc interval was 456 ms 2. Continue anticoagulation and would suggest reduce the dose of sotalol to 80 mg twice daily considering age and low body weight Documented By: Natty Stout MD 02/17/251246 Signed By: 02/17/25 1249 [facility]05-22-2025 Progress note Author Acosta Bo [facility] Note Date/Time February 16, 2025 2:19p m [facility] [address] [place] [address] Hospitalist Progress Note Signed Patient: Daniela Raymundo MR#: [id number] : 1945 Acct:[id number] Age/Sex: 80 / F Adm Date: 5 Loc: Room: [address] [place] [address] Type: ADM IN Attending Dr: Acosta Bo MD Copies to: ~ Date of Service: 02/16/2025 Subjective Subjective Narrative: Patient was slightly more cough and respiratory distress today. Blood pressureswere borderline low and heart rate did improve with cardiac medication changes yesterday. She is eating and drinking reasonably well, but still has somewhat poor appetite. Bedside RN notes that patient has been having more audible wheezes today. She has been held off of her Lasix over the last day due to complaints of dizziness 2 days ago. Exam Physical Exam Vital Signs: Temp Pulse Resp BP Pulse Ox O2 Del Method O2 Flow Rate 98.2 F 74 20 123/74 96 Nasal Cannula 2 02/16/25 12:00 02/16/25 12:00 02/16/25 12:00 02/16/25 12:00 02/16/25 12:00 02/16/25 12:02/16/25 12:00 Narrative: GEN: Resting in bed. Does seem to have increased work of breathing. Neck: No JVD. No thyromegaly. No lymphadenopathy. Lungs: Diffuse expiratory wheezing noted throughout both lung chan Heart: Irregularly irregular. Patient remains significantly tachycardic, with resting heart rate in the 110s?120s Abdomen: Soft, normal bowel sounds, no rigidity, guarding, or acute peritoneal signs. Extremities: No swelling or cords in the calves bilaterally, no edema in the ankles bilaterally. Neuro: Does have a strong tremor at baseline. Strength appears 5/5 throughout Objective Lab Results 02/16/25 04:41 02/16/25 04:41 Meds Allergies and Active Meds Allergies ethyl alcohol Allergy (Severe, Verified 02/11/25 18:24) Hives Nnmqfpr-[id number]-[id number] Reductase Inhibitor Allergy (Intermediate, Verified 02/11/25 13:23) Hives ezetimibe (From Zetia) Allergy (Verified 02/11/25 13:23) Muscle Pain Active Meds: Active Medications Generic Name Dose Route Start Last Admin Trade Name Freq PRN Reason Stop Dose Admin Acetaminophen 650 mg 02/11/25 15:55 Acetaminophen 325 Mg Tablet PO 02/11/26 15:54 Q6HR PRN Pain Scale 1 - 3 or fever Albuterol 2 puff 02/13/25 05:11 02/14/25 20:14 Albuterol Hfa 60 Puff/8 Gram Inhaler INHALATION 02/13/26 05:10 2 puff Q6H PRN Administration Shortness Of Breath Or Wheezing Albuterol 2.5 mg 02/15/25 15:18 Albuterol Neb 2.5 Mg/3 Ml Vial.Neb INHALATION 02/15/26 15:17 Q3H PRN Shortness Of Breath Alprazolam 0.5 mg 02/11/25 15:58 02/16/25 10:29 Alprazolam 0.5 Mg Tablet PO 08/10/25 15:57 0.5 mg BID PRN Administration Anxiety Alprazolam 1 mg 02/11/25 20:16 02/15/25 22:10 Alprazolam 0.5 Mg Tablet PO 08/10/25 20:15 1 mg QHS PRN Administration Anxiety Apixaban 5 mg 02/15/25 21:00 02/16/25 10:29 Apixaban 5 Mg Tablet PO 02/15/26 20:59 5 mg BID DUKE Administration Aspirin 81 mg 02/14/25 09:00 02/16/25 10:29 Aspirin 81 Mg Tab.Chew PO 02/14/26 08:59 81 mg DAILY DUKE Administration Atropine Sulfate 1 mg 02/13/25 10:26 Atropine Sulfate 1 Mg/10 Ml Syringe IV-PUSH ONCE PRN Symptomatic Bradycardia Clopidogrel Bisulfate 75 mg 02/14/25 09:00 02/16/25 10:29 Clopidogrel Bisulfate 75 Mg Tablet PO 02/14/26 08:59 75 mg DAILY DUKE Administration Famotidine 20 mg 02/13/25 22:54 Famotidine 20 Mg Tablet PO 02/14/26 08:59 BID PRN Heartburn Furosemide 40 mg 02/16/25 12:15 02/16/25 13:52 Furosemide 40 Mg/4 Ml Vial IV-PUSH 02/16/26 12:14 40 mg DAILY DUKE Administration Sodium Chloride 250 mls @ 999 mls/hr 02/13/25 10:26 0.9% Sodium Chloride 250 Ml IV 02/13/26 10:25 PRN PRN Hypotension Levothyroxine Sodium 75 mcg 02/12/25 05:15 02/16/25 06:41 Levothyroxine 75 Mcg Tablet PO 02/12/26 05:14 75 mcg DAILY.0630 DUKE Administration Linagliptin 5 mg 02/12/25 09:00 02/16/25 10:29 Linagliptin 5 Mg Tablet PO 02/12/26 08:59 5 mg DAILY DUKE Administration Metoprolol Tartrate 5 mg 02/16/25 10:11 Metoprolol Tartrate 5 Mg/5 Ml Vial IV-PUSH 02/16/26 10:10 Q4H PRN Heart Rate- High Nitroglycerin 0.4 mg 02/11/25 13:15 02/11/25 13:21 Nitroglycerin 0.4 Mg Tab.Subl SUBLINGUAL 02/11/26 13:14 0.4 mg Q5M PRN Administration Chest Pain Nitroglycerin 1 each 02/12/25 09:00 02/16/25 06:41 Nitroglycerin Patch 0.4 Mg/Hr 1 Each Patch.Td24 TRANSDERML 02/12/26 08:59 1each DAILY@0600 DUKE Administration Pom (Potassium 99 Mg 99 mg 02/12/25 09:00 02/16/25 10:30 Tablet) PO 02/12/26 08:59 99 mg DAILY DUKE Administration Pom (Pitavastatin 2 mg 02/12/25 09:00 02/16/25 10:30 Calcium [Livalo] 2 PO 02/12/26 08:59 2 mg Mg Tablet) DAILY DUKE Administration Pantoprazole Sodium 40 mg 02/14/25 07:30 02/16/25 10:29 Pantoprazole 40 Mg Tablet. PO 02/14/26 07:29 40 mg BID.AC DUKE Administration Polyethylene Glycol 17 gm 02/15/25 10:19 02/15/25 14:37 Polyethylene Glycol 3350 17 Gm Powd.Pack PO 02/15/26 10:18 17 gm DAILY PRN Administration Constipation Potassium Chloride 40 meq 02/12/25 08:38 Potassium Chloride Er 20 Meq Tab.Er.Prt PO STAT PRN Hypokalemia Prochlorperazine Edisylate 5 mg 02/12/25 14:25 Prochlorperazine Edisylate 10 Mg/2 Ml Vial IV-PUSH 02/12/26 14:24 Q6H PRN Nausea OR Vomiting Sodium Chloride 0 ml 02/11/25 13:04 02/16/25 13:52 Sodium Chloride 0.9 % 10 Ml Syringe IV-PUSH 02/11/26 13:03 10 ml PRN PRN Administration Flush Sodium Chloride 0 ml 02/12/25 08:38 Sodium Chloride 0.9 % 10 Ml Syringe IV-PUSH 02/12/26 08:37 PRN PRN Flush Sotalol HCl 120 mg 02/16/25 10:30 02/16/25 11:45 Sotalol 120 Mg Tablet PO 02/16/26 10:29 Not Given BID DUKE A&P - Hospitalist Assessment/Plan (1) Atrial fibrillation with RVR: (2) Coronary artery disease: (3) Tremor: (4) Angina at rest: Plan Assessment/Plan: NSTEMI Atrial fibrillation with rapid ventricular response Coronary artery disease with history of three-vessel CABG back in 2010 Respiratory status mildly worsened today. Resting heart rate remains significantly tachycardic in the 110s. Does have a history of coronary disease and did receive a stentx1 during this hospitalization. Cardiorespiratory symptoms are very minimal at this time. Patient has increased dyspnea and did need to be placed back on supplemental O2 today. I suspect this is a cardiac wheeze. Plan: -Plan is for cardioversion likely tomorrow -Cardiac medications per cardiology team - Will restart IV Lasix at 40 mg IV daily dosing -A-fib management per cardiology as well-sotalol decreased and patient was put on Cardizem, which is now discontinued. -Continuous telemetry monitoring - Continue to monitor on progressive care unit Hypothyroidism?Levothyroxine Anxiety disorder NOS-Continue home Xanax for now, is a poor long-term anxiety medication for patient at this age Essential tremor?continue to monitor GERD?continue PPI CODE STATUS: Full Code DVT prophylaxis: Eliquis Documented By: Acosta Bo MD 5 1407 Signed By: <Electronically signed by Acosta Bo MD> 02/16/25 1419 [facility] Work Phone: 1(809) 259-476505-22-2025 [place] [address] Hospitalist Progress Note Signed Patient: Daniela Raymundo MR#: [id number] : 1945 Acct:[id number] Age/Sex: 80 / F Adm Date: 5 Loc: Room: [address] [place] [address] Type: ADM IN Attending Dr: Acosta Bo MD Copies to: ~ Date of Service: 02/16/2025 Subjective Subjective Narrative: Patient was slightly more cough and respiratory distress today. Blood pressureswere borderline low and heart rate did improve with cardiac medication changes yesterday. She is eating and drinking reasonably well, but still has somewhat poor appetite. Bedside RN notes that patient has been having more audible wheezes today. She has been held off of her Lasix over the last day due to complaints of dizziness 2 days ago. Exam Physical Exam Vital Signs: Temp Pulse Resp BP Pulse Ox O2 Del Method O2 Flow Rate 98.2 F 74 20 123/74 96 Nasal Cannula 2 02/16/25 12:00 02/16/25 12:00 02/16/25 12:00 02/16/25 12:00 02/16/25 12:00 02/16/25 12:02/16/25 12:00 Narrative: GEN: Resting in bed. Does seem to have increased work of breathing. Neck: No JVD. No thyromegaly. No lymphadenopathy. Lungs: Diffuse expiratory wheezing noted throughout both lung chan Heart: Irregularly irregular. Patient remains significantly tachycardic, with resting heart rate inthe 110s?120s Abdomen: Soft, normal bowel sounds, no rigidity, guarding, or acute peritoneal signs. Extremities: No swelling or cords in the calves bilaterally, no edema in the ankles bilaterally. Neuro: Does have a strong tremor at baseline. Strength appears 5/5 throughout Objective Lab Results 02/16/25 04:41 02/16/25 04:41 Meds Allergies and Active Meds Allergies ethyl alcohol Allergy (Severe, Verified 02/11/25 18:24) Hives Bdqhwhk-IFP-ZdV Reductase Inhibitor Allergy (Intermediate, Verified 02/11/25 13:23) Hives ezetimibe (From Zetia) Allergy (Verified 02/11/25 13:23) Muscle Pain Active Meds: Active Medications Generic Name Dose Route Start Last Admin Trade Name Freq PRN Reason Stop Dose Admin Acetaminophen 650 mg 02/11/25 15:55 Acetaminophen 325 Mg Tablet PO 02/11/26 15:54 Q6HR PRN Pain Scale 1 - 3 or fever Albuterol 2 puff 02/13/25 05:11 02/14/25 20:14 Albuterol Hfa 60 Puff/8 Gram Inhaler INHALATION 02/13/26 05:10 2 puff Q6H PRN Administration Shortness Of Breath Or Wheezing Albuterol 2.5 mg 02/15/25 15:18 Albuterol Neb 2.5 Mg/3 Ml Vial.Neb INHALATION 02/15/26 15:17 Q3H PRN Shortness Of Breath Alprazolam 0.5 mg 02/11/25 15:58 02/16/25 10:29 Alprazolam 0.5 Mg Tablet PO 08/10/25 15:57 0.5 mg BID PRN Administration Anxiety Alprazolam 1 mg 02/11/25 20:16 02/15/25 22:10 Alprazolam 0.5 Mg Tablet PO 08/10/25 20:15 1 mg QHS PRN Administration Anxiety Apixaban 5 mg 02/15/25 21:00 02/16/25 10:29 Apixaban 5 Mg Tablet PO 02/15/26 20:59 5 mg BID DUKE Administration Aspirin 81 mg 02/14/25 09:00 02/16/25 10:29 Aspirin 81 Mg Tab.Chew PO 02/14/26 08:59 81 mg DAILY DUKE Administration Atropine Sulfate 1 mg 02/13/25 10:26 Atropine Sulfate 1 Mg/10 Ml Syringe IV-PUSH ONCE PRN Symptomatic Bradycardia Clopidogrel Bisulfate 75 mg 02/14/25 09:00 02/16/25 10:29 Clopidogrel Bisulfate 75 Mg Tablet PO 02/14/26 08:59 75 mg DAILY DUKE Administration Famotidine 20 mg 02/13/25 22:54 Famotidine 20 Mg Tablet PO 02/14/26 08:59 BID PRN Heartburn Furosemide 40 mg 02/16/25 12:15 02/16/25 13:52 Furosemide 40 Mg/4 Ml Vial IV-PUSH 02/16/26 12:14 40 mg DAILY DUKE Administration Sodium Chloride 250 mls @ 999 mls/hr 02/13/25 10:26 0.9% Sodium Chloride 250 Ml IV 02/13/26 10:25 PRN PRN Hypotension Levothyroxine Sodium 75 mcg 02/12/25 05:15 02/16/25 06:41 Levothyroxine 75 Mcg Tablet PO 02/12/26 05:14 75 mcg DAILY.0630 DUKE Administration Linagliptin 5 mg 02/12/25 09:00 02/16/25 10:29 Linagliptin 5 Mg Tablet PO 02/12/26 08:59 5 mg DAILY DUKE Administration Metoprolol Tartrate 5 mg 02/16/25 10:11 Metoprolol Tartrate 5 Mg/5 Ml Vial IV-PUSH 02/16/26 10:10 Q4H PRN Heart Rate- High Nitroglycerin 0.4 mg 02/11/25 13:15 02/11/25 13:21 Nitroglycerin 0.4 Mg Tab.Subl SUBLINGUAL 02/11/26 13:14 0.4 mg Q5M PRN Administration Chest Pain Nitroglycerin 1 each 02/12/25 09:00 02/16/25 06:41 Nitroglycerin Patch 0.4 Mg/Hr 1 Each Patch.Td24 TRANSDERML 02/12/26 08:59 1each DAILY@0600 DUKE Administration Pom (Potassium 99 Mg 99 mg 02/12/25 09:00 02/16/25 10:30 Tablet) PO 02/12/26 08:59 99 mg DAILY DUKE Administration Pom (Pitavastatin 2 mg 02/12/25 09:00 02/16/25 10:30 Calcium [Livalo] 2 PO 02/12/26 08:59 2 mg Mg Tablet) DAILY DUKE Administration Pantoprazole Sodium 40 mg 02/14/25 07:30 02/16/25 10:29 Pantoprazole 40 Mg Tablet.Dr PO 02/14/26 07:29 40 mg BID.AC DUKE Administration Polyethylene Glycol 17 gm 02/15/25 10:19 02/15/25 14:37 Polyethylene Glycol 3350 17 Gm Powd.Pack PO 02/15/26 10:18 17 gm DAILY PRN Administration Constipation Potassium Chloride 40 meq 02/12/25 08:38 Potassium Chloride Er 20 Meq Tab.Er.Prt PO STAT PRN Hypokalemia Prochlorperazine Edisylate 5 mg 02/12/25 14:25 Prochlorperazine Edisylate 10 Mg/2 Ml Vial IV-PUSH 02/12/26 14:24 Q6H PRN Nausea OR Vomiting Sodium Chloride 0 ml 02/11/25 13:04 02/16/25 13:52 Sodium Chloride 0.9 % 10 Ml Syringe IV-PUSH 02/11/26 13:03 10 ml PRN PRN Administration Flush Sodium Chloride 0 ml 02/12/25 08:38 Sodium Chloride 0.9 % 10 Ml Syringe IV-PUSH 02/12/26 08:37 PRN PRN Flush Sotalol HCl 120 mg 02/16/25 10:30 02/16/25 11:45 Sotalol 120 Mg Tablet PO 02/16/26 10:29 Not Given BID DUKE A&P - Hospitalist Assessment/Plan (1) Atrial fibrillation with RVR: (2) Coronary artery disease: (3) Tremor: (4) Angina at rest: Plan Assessment/Plan: NSTEMI Atrial fibrillation with rapid ventricular response Coronary artery disease with history of three-vessel CABG back in 2010 Respiratory status mildly worsened today. Resting heart rate remains significantly tachycardic in the 110s. Does have a history of coronary disease and did receive a stentx1 during this hospitalization. Cardiorespiratory symptoms are very minimal at this time. Patient has increased dyspnea and did n eed to be placed back on supplemental O2 today. I suspect this is a cardiac wheeze. Plan: -Plan is for cardioversion likely tomorrow -Cardiac medications per cardiology team - Will restart IV Lasix at 40 mg IV daily dosing -A-fib management per cardiology as well-sotalol decreased and patient was put on Cardizem, which is now discontinued. -Continuous telemetry monitoring - Continue to monitor on progressive care unit Hypothyroidism?Levothyroxine Anxiety disorder NOS-Continue home Xanax for now, is a poor long-term anxiety medication for patient at this age Essential tremor?continue to monitor GERD?continue PPI CODE STATUS: Full Code DVT prophylaxis: Eliquis Documented By: Acosta Bo MD 5 1409 Signed By: 02/16/25 1419 [facility]05-22-2025 Progress note Author Natty Stout [facility] Note Date/Time February 16, 2025 10:12 am [facility] [address] [place] [address] Cardiology Progress Note Signed Patient: Daniela Raymundo MR#: [id number] : 1945 Acct:[id number] Age/Sex: 80 / F Adm Date: 5 Loc: Room: [address] [place] [address] Type: ADM IN Attending Dr: Acosta Bo MD Copies to: ~ Date of Service: 02/16/2025 Subjective Principal diagnosis: Non-ST elevation GA, ASHD, A-fib with RVR Interval history: Patient without active cardiac complaint. Heart rate better controlled but became slightly bradycardic during the night Exam Physical Exam Vital Signs: Temp Pulse Resp BP Pulse Ox O2 Del Method O2 Flow Rate 98.0 F 82 20 115/69 95 Nasal Cannula 1 02/16/25 08:00 02/16/25 08:00 02/16/25 08:00 02/16/25 08:00 02/16/25 08:00 02/16/25 08:00 02/16/25 08:00 Const General: cooperative Neck Neck: supple Lymphatic: no lymphadenopathy noted Resp Effort & Inspection: normal respiratory effort Auscultation: clear to auscultation bilaterally Cardio Palpation: normal PMI Rhythm: abnormal rhythm irregularly irregular Heart Sounds: S1 normal and S2 normal Skin General: dry skin Extrem General: full ROM and no clubbing, cyanosis or edema Objective Labs 02/16/25 04:41 02/16/25 04:41 Labs: Laboratory Results - last 24 hr 02/16/25 04:41 Corrected WBC 11.0 Uncorrected WBC Count 11.0 RBC 3.53 L Hgb 9.6 L Hct 29.7 L MCV 84.0 MCH 27.3 MCHC 32.5 RDW 14.2 Plt Count 159 MPV 9.8 Neut % (Auto) 53.6 Lymph % (Auto) 30.2 Beaver % (Auto) 11.9 Eos % (Auto) 3.6 Baso % (Auto) 0.7 Nucleat RBC Rel Count 0.2 Neut # (Auto) 5.9 Lymph # (Auto) 3.3 Beaver # (Auto) 1.3 H Eos # (Auto) 0.4 Baso # (Auto) 0.1 PHA Creatinine Clear 31.21 Sodium 136 Potassium 3.9 Chloride 99 Carbon Dioxide 33.3 H Anion Gap 7.6 BUN 24 Creatinine 1.27 H Est GFR (CKD-EPI) 42.223 Glucose 141 H Calcium 9.6 Magnesium 2.0 A&P - Cardiology (1) History of coronary artery bypass graft x 3: Code(s): Z95.1 - Presence of aortocoronary bypass graft (2) Essential tremor: Code(s): G25.0 - Essential tremor (3) Type 2 diabetes mellitus: Code(s): E11.9 - Type 2 diabetes mellitus without complications (4) Atrial fibrillation with RVR: Code(s): I48.91 - Unspecified atrial fibrillation (5) Chronic kidney disease: Code(s): N18.9 - Chronic kidney disease, unspecified (6) Dyslipidemia: Code(s): E78.5 - Hyperlipidemia, unspecified Plan 1. Patient heart rate seem to have improved on high-dose sotalol with the addition of diltiazem. Difficult to measure QTc interval due to atrial flutter 2. I reviewed the record there is no significant interruption of anticoagulation and I believe cardioversion can be done safely. I discussed that with the patient at great length she understood and agreed 3. Would recommend to reduce the dose of sotalol to 120 mg twice daily considering age, body size and renal dysfunction. Will use IV Lopressor as needed if heart rate up 4. I will arrange cardioversion tomorrow Documented By: Natty Stout MD 02/16/25 1008 Signed By: <Electronically signed by MD Natty Stout> 02/16/25 1012 [facility] Work Phone: 1(449) 231-506905-22-2025 [place] [address] Cardiology Progress Note Signed Patient: Daniela Raymundo MR#: [id number] : 1945 Acct:[id number] Age/Sex: 80 / F Adm Date: 5 Loc: Room: [address] [place] [address] Type: ADM IN Attending Dr: Acosta Bo MD Copies to: ~ Date of Service: 02/16/2025 Subjective Principal diagnosis: Non-ST elevation GA, ASHD, A-fib with RVR Interval history: Patient without active cardiac complaint. Heart rate better controlled but became slightly bradycardic during the night Exam Physical Exam Vital Signs: Temp Pulse Resp BP Pulse Ox O2 Del Method O2 Flow Rate 98.0 F 82 20 115/69 95 Nasal Cannula 1 02/16/25 08:00 02/16/25 08:00 02/16/25 08:00 02/16/25 08:00 02/16/25 08:00 02/16/25 08:00 02/16/25 08:00 Const General: cooperative Neck Neck: supple Lymphatic: no lymphadenopathy noted Resp Effort & Inspection: normal respiratory effort Auscultation: clear to auscultation bilaterally Cardio Palpation: normal PMI Rhythm: abnormal rhythm irregularly irregular Heart Sounds: S1 normal and S2 normal Skin General: dry skin Extrem General: full ROM and no clubbing, cyanosis or edema Objective Labs 02/16/25 04:41 02/16/25 04:41 Labs: Laboratory Results - last 24 hr 02/16/25 04:41 Corrected WBC 11.0 Uncorrected WBC Count 11.0 RBC 3.53 L Hgb 9.6 L Hct 29.7 L MCV 84.0 MCH 27.3 MCHC 32.5 RDW 14.2 Plt Count 159 MPV 9.8 Neut % (Auto) 53.6 Lymph % (Auto) 30.2 Beaver % (Auto) 11.9 Eos % (Auto) 3.6 Baso % (Auto) 0.7 Nucleat RBC Rel Count 0.2 Neut # (Auto) 5.9 Lymph # (Auto) 3.3 Beaver # (Auto) 1.3 H Eos # (Auto) 0.4 Baso # (Auto) 0.1 PHA Creatinine Clear 31.21 Sodium 136 Potassium 3.9 Chloride 99 Carbon Dioxide 33.3 H Anion Gap 7.6 BUN 24 Creatinine 1.27 H Est GFR (CKD-EPI) 42.223 Glucose 141 H Calcium 9.6 Magnesium 2.0 A&P - Cardiology (1) History of coronary artery bypass graft x 3: Code(s): Z95.1 - Presence of aortocoronary bypass graft (2) Essential tremor: Code(s): G25.0 - Essential tremor (3) Type 2 diabetes mellitus: Code(s): E11.9 - Type 2 diabetes mellitus without complications (4) Atrial fibrillation with RVR: Code(s): I48.91 - Unspecified atrial fibrillation (5) Chronic kidney disease: Code(s): N18.9 - Chronic kidney disease, unspecified (6) Dyslipidemia: Code(s): E78.5 - Hyperlipidemia, unspecified Plan 1. Patient heart rate seem to have improved on high-dose sotalol with the addition of diltiazem. Difficult to measure QTc interval due to atrial flutter 2. I reviewed the record there is no significant interruption of anticoagulation and I believe cardioversion can be done safely. I discussed that with the patient at great length she understood and agreed 3. Would recommend to reduce the dose of sotalol to 120 mg twice daily considering age, body size and renal dysfunction. Will use IV Lopressor as needed if heart rate up 4. I will arrange cardioversion tomorrow Documented By: Natty Stout MD 02/16/25 1008 Signed By: 02/16/25 1012 [facility]05-21-2025 Progress note Author W Ebenezer [facility] Note Date/Time February 15, 2025 4:09p m [facility] [address] [place] [address] Cardiology Progress Note Signed Patient: Daniela Raymundo MR#: [id number] : 1945 Acct:[id number] Age/Sex: 80 / F Adm Date: 5 Loc: 4P Room: 6Y4124-6 Type: ADM IN Attending Dr: Acosta Bo MD Copies to: ~ Date of Service: 02/15/2025 Subjective Principal diagnosis: Non-ST elevation GA, ASHD, A-fib with RVR Interval history: Ms. Raymundo is a 80 year old female who is being seen at the request of the hospitalist for evaluation of atrial fibrillation, dyspnea and elevated troponin. Patient follows with Dr. Sol with a known history of coronary bypass surgery done in 2009 at [facility] with no events noted since. Last nuclear stress test in 2022 demonstrated inferolateral infarction with no ischemia and with normal ejection fraction. The patient for the last 7 to 10 days has been experiencing symptoms of chest heaviness, arm pain and neck discomfort that seems to be constant. She did not have nitroglycerin to use. She called the office and apparently it was decided to get 48-hour Holter monitor which was returned this past Thursday. It is not reported yet. The patient presented with dyspnea, chest pain and palpitation and was found to be in atrial flutter with variable AV conduction, she was started on Cardizem drip, chest x-ray was unremarkable. Her initial troponin was 76 pg/mL and now has reached a value of 1779 pg/mL. Her symptoms of chest pain have lessened but has very noticeable dyspnea during casual conversation. She has actually audible wheezing as well. Her BNP was elevated at 579 pg/mL. There is no anemia or significant renal impairment. No indication for pneumoniaor active infection. Patient has been chronically anticoagulated with Eliquis for paroxysmal atrial fibrillation but no antiarrhythmic therapy. She has longstanding diabetes, hyperlipidemia and hypertension. She has no previous stroke but reports history of TIA. Has had no bleeding complications on anticoagulation. Has intolerance to a number of statins and presently on Pitavastatin which seems to be quite expensive, LDL cholesterol though is on target. 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 She lives with her . Denies any hemoptysis, melena or hematuria. Has no orthopnea PND or lower extremity edema but recently has developed progressive dyspnea. There hasbeen no recent echocardiogram that I could find. Patient has very advanced caseof essential tremor Interim evaluation 02/14/2025: Patient is stable, with continued A-fib with RVR currently on sotalol 80 twice daily; diltiazem was discontinued at some point yesterday. Patient remains anticoagulated and on antiplatelet therapy as well. Patient underwent left heart catheterization yesterday with ad hoc PCI protectedleft main?ostial/proximal circumflex with drug-eluting stent (see details of revascularization and interventional report); LV function is preserved; PATEL graft to LAD, vein graft to RCA are both patent. Patient with persistent A-fib with RVR with heart rates between 110-140; will escalate sotalol to 160 twice daily with the potential to add diltiazem/metoprolol if persistently tachycardic. We did discuss possibility ofcardioversion if necessary Interim evaluation 02/15/2025: Patient is stable a little more wheezy today and more dyspneic with persistent atrial fibrillation with heart rates between 110-130 on higher dose sotalol. This afternoon we added diltiazem 180 daily to her regimen in hopes of stabilizing her A-fib rate. Otherwise alert and oriented, conversant, ambulating to chair and bathroom in bed. Oxygen saturation on room air is 89 to 91% with audible wheezes Will recommend a 1 dose of IV furosemide, and albuterol treatment, initiate Cardizem 180 daily. Exam Physical Exam Vital Signs: Temp Pulse Resp BP Pulse Ox O2 Del Method O2 Flow Rate 98.5 F 129 H 20 121/79 91 L Room Air 1.5 02/15/25 15:09 02/15/25 15:45 02/15/25 15:45 02/15/25 15:09 02/15/25 15:09 02/15/25 15:09 02/15/25 06:07 Objective Labs 02/15/25 08:01 02/15/25 08:01 Labs: Laboratory Results - last 24 hr 02/15/25 08:01 Corrected WBC 11.2 Uncorrected WBC Count 11.2 RBC 3.64 Hgb 9.8 L Hct 30.1 L MCV 82.8 MCH 26.8 MCHC 32.4 RDW 14.7 Plt Count 165 MPV 9.6 Neut % (Auto) 65.2 Lymph % (Auto) 20.1 Beaver % (Auto) 10.7 Eos % (Auto) 3.2 Baso % (Auto) 0.8 Nucleat RBC Rel Count 0.0 Neut # (Auto) 7.3 Lymph # (Auto) 2.3 Beaver # (Auto) 1.2 H Eos # (Auto) 0.4 Baso # (Auto) 0.1 PHA Creatinine Clear 29.36 Sodium 137 Potassium 3.9 Chloride 101 Carbon Dioxide 31.3 H Anion Gap 8.6 BUN 19 Creatinine 1.35 H Est GFR (CKD-EPI) 39.238 Glucose 146 H Calcium 9.2 A&P - Cardiology (1) Acute coronary syndrome: Assessment/Problem Details: This may have been triggered by atrial fibrillation with RVR, underlying CAD progression cannot be excluded, last nuclear stress test 2022 revealed no ischemia Plan: Patient will benefit from invasive cardiac workup with cardiac catheterization to be scheduled tomorrow, meanwhile continue heparin and aspirin. Code(s): I24.9 - Acute ischemic heart disease, unspecified (2) History of coronary artery bypass graft x 3: Assessment/Problem Details: This was back in 2009 with no cardiac catheterization since. Plan: Continue secondary prevention measures, due to ACS invasive cardiac evaluation is recommended Code(s): Z95.1 - Presence of aortocoronary bypass graft (3) Essential tremor: Assessment/Problem Details: Chronic Plan: No specific therapy is available Code(s): G25.0 - Essential tremor (4) Type 2 diabetes mellitus: Plan: Continue home medications with Januvia Code(s): E11.9 - Type 2 diabetes mellitus without complications (5) Atrial fibrillation with RVR: Assessment/Problem Details: Patient asymptomatic, currently on Cardizem drip and heparin. Plan: Patient will benefit from antiarrhythmic therapy to prevent recurrent atrial fibrillation and hopefully to restore normal sinus rhythm. Will add sotalol 80 mg twice daily, daily EKG, cardioversion if necessary Code(s): I48.91 - Unspecified atrial fibrillation (6) Chronic kidney disease: Assessment/Problem Details: Stage III Plan: Avoid nephrotoxic medications Code(s): N18.9 - Chronic kidney disease, unspecified (7) Dyslipidemia: Assessment/Problem Details: Intolerant to most of the statins Plan: Patient seem to have difficulties affording Livalo, consider pravastatin Code(s): E78.5 - Hyperlipidemia, unspecified Documented By: Jeff Sol DO 02/15/25 5998 Signed By: <Electronically signed by Jeff Sol, DO> 02/15/[address] [facility] Work Phone: [phone]) 618-891005-21-2025 [place] [id number] Cardiology Progress Note Signed Patient: Daniela Raymundo MR#: [id number] : 1945 Acct:[id number] Age/Sex: 80 / F Adm Date: 5 Loc: Room: [address] [place] [address] Type: ADM IN Attending Dr: Acosta Bo MD Copies to: ~ Date of Service: 02/15/2025 Subjective Principal diagnosis: Non-ST elevation GA, ASHD, A-fib with RVR Interval history: Ms. Raymundo is a 80 year old female who is being seen at the request of the hospitalist for evaluation of atrial fibrillation, dyspnea and elevated troponin. Patient follows with Dr. Sol with a known history of coronary bypass surgery done in 2009 at [facility] with no events noted since. Last nuclear stress test in 2022 demonstrated inferolateral infarction with no ischemia and with normal ejection fraction. The patient for the last 7 to 10 days has been experiencing symptoms of chest heaviness, arm pain and neck discomfort that seems to be constant. She did not have nitroglycerin to use. She called the office and apparently it was decided to get 48-hour Holter monitor which was returned this past Thursday. It is not reported yet. The patient presented with dyspnea, chest pain and palpitation and was found to be in atrial flutter with variable AV conduction, she was started on Cardizem drip, chest x-ray was unremarkable. Her initial troponin was 76 pg/mL and now has reached a value of 1779 pg/mL. Her symptoms of chest pain have lessened but has very noticeable dyspnea during casual conversation. She has actually audible wheezing as well. Her BNP was elevated at 579 pg/mL. There is no anemia or significant renal impairment. No indication for pneumoniaor active infection. Patient has been chronically anticoagulated with Eliquis for paroxysmal atrial fibrillation but no antiarrhythmic therapy. She has longstanding diabetes, hyperlipidemia and hypertension. She has no previous stroke but reports history of TIA. Has had no bleeding complications on antico agulation. Has intolerance to a number of statins and presently on Pitavastatin which seems to be quite expensive, LDL cholesterol though is on target. 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 She lives with her . Denies any hemoptysis, melena or hematuria. Has no orthopnea PND or lower extremity edema but recently has developed progressive dyspnea. There hasbeen no recent echocardiogram that I could find. Patient has very advanced caseof essential tremor Interim evaluation 02/14/2025: Patient is stable, with continued A-fib with RVR currently on [id number] twice daily; diltiazem was discontinued at some point yesterday. Patient remains anticoagulated and on antiplatelet therapy as well. Patient underwent left heart catheterization yesterday with ad hoc PCI protectedleft main?ostial/proximal circumflex with drug-eluting stent (see details of revascularization and interventional report); LV function is preserved; PATEL graft to LAD, vein graft to RCA are both patent. Patient with persistent A-fib with RVR with heart rates between 110-140; will escalate sotalol to 160 twice daily with the potential to add diltiazem/metoprolol if persistently tachycardic. We did discuss possibility ofcardioversion if necessary Interim evaluation 02/15/2025: Patient is stable a little more wheezy today and more dyspneic with persistent atrial fibrillation with heart rates between 110- 130 on higher dose sotalol. This afternoon we added diltiazem 180 daily to her regimen in hopes of stabilizing her A-fib rate. Otherwise alert and oriented, conversant, ambulating to chair and bathroom in bed. Oxygen saturation on room air is 89 to 91% with audible wheezes Will recommend a 1 dose of IV furosemide, and albuterol treatment, initiate Cardizem 180 daily. Exam Physical Exam Vital Signs: Temp Pulse Resp BP Pulse Ox O2 Del Method O2 Flow Rate 98.5 F 129 H 20 121/79 91 L Room Air 1.5 02/15/25 15:09 02/15/25 15:45 02/15/25 15:45 02/15/25 15:09 02/15/25 15:09 02/15/25 15:09 02/15/25 06:07 Objective Labs 02/15/25 08:01 02/15/25 08:01 Labs: Laboratory Results - last 24 hr 02/15/25 08:01 Corrected WBC 11.2 Uncorrected WBC Count 11.2 RBC 3.64 Hgb 9.8 L Hct 30.1 L MCV 82.8 MCH 26.8 MCHC 32.4 RDW 14.7 Plt Count 165 MPV 9.6 Neut % (Auto) 65.2 Lymph % (Auto) 20.1 Beaver % (Auto) 10.7 Eos % (Auto) 3.2 Baso % (Auto) 0.8 Nucleat RBC Rel Count 0.0 Neut # (Auto) 7.3 Lymph # (Auto) 2.3 Beaver # (Auto) 1.2 H Eos # (Auto) 0.4 Baso # (Auto) 0.1 PHA Creatinine Clear 29.36 Sodium 137 Potassium 3.9 Chloride 101 Carbon Dioxide 31.3 H Anion Gap 8.6 BUN 19 Creatinine 1.35 H Est GFR (CKD-EPI) 39.238 Glucose 146 H Calcium 9.2 A&P - Cardiology (1) Acute coronary syndrome: Assessment/Problem Details: This may have been triggered by atrial fibrillation with RVR, underlying CAD progression cannot be excluded, last nuclear stress test 2022 revealed no ischemia Plan: Patient will benefit from invasive cardiac workup with cardiac catheterization to be scheduled tomorrow, meanwhile continue heparin and aspirin. Code(s): I24.9 - Acute ischemic heart disease, unspecified (2) History of coronary artery bypass graft x 3: Assessment/Problem Details: This was back in 2009 with no cardiac catheterization since. Plan: Continue secondary prevention measures, due to ACS invasive cardiac evaluation is recommended Code(s): Z95.1 - Presence of aortocoronary bypass graft (3) Essential tremor: Assessment/Problem Details: Chronic Plan: No specific therapy is available Code(s): G25.0 - Essential tremor (4) Type 2 diabetes mellitus: Plan: Continue home medications with Januvia Code(s): E11.9 - Type 2 diabetes mellitus without complications (5) Atrial fibrillation with RVR: Assessment/Problem Details: Patient asymptomatic, currently on Cardizem drip and heparin. Plan: Patient will benefit from antiarrhythmic therapy to prevent recurrent atrial fibrillation and hopefully to restore normal sinus rhythm. Will add sotalol 80 mg twice daily, daily EKG, cardioversion ifnecessary Code(s): I48.91 - Unspecified atrial fibrillation (6) Chronic kidney disease: Assessment/Problem Details: Stage III Plan: Avoid nephrotoxic medications Code(s): N18.9 - Chronic kidney disease, unspecified (7) Dyslipidemia: Assessment/Problem Details: Intolerant to most of the statins Plan: Patient seem to have difficulties affording Livalo, consider pravastatin Code(s): E78.5 - Hyperlipidemia, unspecified Documented By: Jeff Sol DO 02/15/25 1607 Signed By: 02/15/25 1609 [facility]05-21-2025 Progress note Author Acosta Bo [facility] Note Date/Time February 15, 2025 10:54 am [facility] [address] [place] [address] Hospitalist Progress Note Signed Patient: Daniela Raymundo MR#: [id number] : 1945 Acct:[id number] Age/Sex: 80 / F Adm Date: 5 Loc: Room: [address] [place] [address] Type: ADM IN Attending Dr: Acosta Bo MD Copies to: ~ Date of Service: 02/15/2025 Subjective Subjective Narrative: Patient feeling reasonably well this a.m. Denies any fever/chill, chest pain, nausea/vomiting or other symptoms at this time. She was able to be weaned off of low-level nasal cannula oxygen. Patient's was on the phone and he was updated on the plan of care as well. Heart rate remains significantly elevated at rest, in the 110s?120s heart rate range. She does not have any significant cardiorespiratory complaints at this time. Patient did have complaints of dizziness yesterday and thus IV Lasix was put on hold for this morning. Exam Physical Exam Vital Signs: Temp Pulse Resp BP Pulse Ox O2 Del Method O2 Flow Rate 98.7 F 123 H 16 127/58 L 95 Room Air 1.5 02/15/25 08:00 02/15/25 08:00 02/15/25 08:00 02/15/25 08:00 02/15/25 08:00 02/15/25 08:00 02/15/25 06:07 Narrative: GEN: Resting in bed. Does seem to have increased work of breathing. Neck: No JVD. No thyromegaly. No lymphadenopathy. Lungs: Clear to auscultation bilaterally, only mildly diminished Heart: Irregularly irregular. Patient remains significantly tachycardic, with resting heart rate in the 110s?120s Abdomen: Soft, normal bowel sounds, no rigidity, guarding, or acute peritoneal signs. Extremities: No swelling or cords in the calves bilaterally, no edema in the ankles bilaterally. Neuro: Does have a strong tremor at baseline. Strength appears 5/5 throughout Objective Lab Results 02/15/25 08:01 02/15/25 08:01 Meds Allergies and Active Meds Allergies ethyl alcohol Allergy (Severe, Verified 02/11/25 18:24) Hives Iwuorky-XXX-VyC Reductase Inhibitor Allergy (Intermediate, Verified 02/11/25 13:23) Hives ezetimibe (From Zetia) Allergy (Verified 02/11/25 13:23) Muscle Pain Active Meds: Active Medications Generic Name Dose Route Start Last Admin Trade Name Freq PRN Reason Stop Dose Admin Acetaminophen 650 mg 02/11/25 15:55 Acetaminophen 325 Mg Tablet PO 02/11/26 15:54 Q6HR PRN Pain Scale 1 - 3 or fever Albuterol 2 puff 02/13/25 05:11 02/14/25 20:14 Albuterol Hfa 60 Puff/8 Gram Inhaler INHALATION 02/13/26 05:10 2 puff Q6H PRN Administration Shortness Of Breath Or Wheezing Alprazolam 0.5 mg 02/11/25 15:58 02/15/25 08:58 Alprazolam 0.5 Mg Tablet PO 08/10/25 15:57 0.5 mg BID PRN Administration Anxiety Alprazolam 1 mg 02/11/25 20:16 02/14/25 21:11 Alprazolam 0.5 Mg Tablet PO 08/10/25 20:15 1 mg QHS PRN Administration Anxiety Apixaban 2.5 mg 02/13/25 21:00 02/15/25 08:55 Apixaban 2.5 Mg Tablet PO 02/13/26 20:59 2.5 mg BID DUKE Administration Aspirin 81 mg 02/14/25 09:00 02/15/25 08:55 Aspirin 81 Mg Tab.Chew PO 02/14/26 08:59 81 mg DAILY DUKE Administration Atropine Sulfate 1 mg 02/13/25 10:26 Atropine Sulfate 1 Mg/10 Ml Syringe IV-PUSH ONCE PRN Symptomatic Bradycardia Clopidogrel Bisulfate 75 mg 02/14/25 09:00 02/15/25 08:55 Clopidogrel Bisulfate 75 Mg Tablet PO 02/14/26 08:59 75 mg DAILY DUKE Administration Famotidine 20 mg 02/13/25 22:54 Famotidine 20 Mg Tablet PO 02/14/26 08:59 BID PRN Heartburn Furosemide 40 mg 02/12/25 16:00 02/14/25 16:57 Furosemide 40 Mg/4 Ml Vial IV-PUSH 02/12/26 15:59 40 mg BID@0800,1600 DUKE Administration Sodium Chloride 250 mls @ 999 mls/hr 02/13/25 10:26 0.9% Sodium Chloride 250 Ml IV 02/13/26 10:25 PRN PRN Hypotension Levothyroxine Sodium 75 mcg 02/12/25 05:15 02/15/25 06:10 Levothyroxine 75 Mcg Tablet PO 02/12/26 05:14 75 mcg DAILY.0630 DUKE Administration Linagliptin 5 mg 02/12/25 09:00 02/15/25 08:56 Linagliptin 5 Mg Tablet PO 02/12/26 08:59 5 mg DAILY DUKE Administration Miscellaneous Information 1 each 02/11/25 13:18 Consult To Pharmacy MISCELLANE 02/11/26 13:17 .PHACONSULT PRN ZZ.Pharmacy Consult Protocol Nitroglycerin 0.4 mg 02/11/25 13:15 02/11/25 13:21 Nitroglycerin 0.4 Mg Tab.Subl SUBLINGUAL 02/11/26 13:14 0.4 mg Q5M PRN Administration Chest Pain Nitroglycerin 1 each 02/12/25 09:00 02/15/25 06:10 Nitroglycerin Patch 0.4 Mg/Hr 1 Each Patch.Td24 TRANSDERML 02/12/26 08:59 1each DAILY@0600 DUKE Administration Pom (Potassium 99 Mg 99 mg 02/12/25 09:00 02/15/25 08:56 Tablet) PO 02/12/26 08:59 99 mg DAILY DUKE Administration Pom (Pitavastatin 2 mg 02/12/25 09:00 02/15/25 08:56 Calcium [Livalo] 2 PO 02/12/26 08:59 2 mg Mg Tablet) DAILY DUKE Administration Pantoprazole Sodium 40 mg 02/14/25 07:30 02/15/25 08:56 Pantoprazole 40 Mg Tablet. PO 02/14/26 07:29 40 mg BID.AC DUKE Administration Potassium Chloride 40 meq 02/12/25 08:38 Potassium Chloride Er 20 Meq Tab.Er.Prt PO STAT PRN Hypokalemia Prochlorperazine Edisylate 5 mg 02/12/25 14:25 Prochlorperazine Edisylate 10 Mg/2 Ml Vial IV-PUSH 02/12/26 14:24 Q6H PRN Nausea OR Vomiting Sodium Chloride 0 ml 02/11/25 13:04 02/14/25 16:58 Sodium Chloride 0.9 % 10 Ml Syringe IV-PUSH 02/11/26 13:03 10 ml PRN PRN Administration Flush Sodium Chloride 0 ml 02/12/25 08:38 Sodium Chloride 0.9 % 10 Ml Syringe IV-PUSH 02/12/26 08:37 PRN PRN Flush Sotalol HCl 160 mg 02/14/25 21:00 02/15/25 08:55 Sotalol 80 Mg Tablet PO 02/14/26 20:59 160 mg BID DUKE Administration A&P - Hospitalist Assessment/Plan (1) Atrial fibrillation with RVR: (2) Coronary artery disease: (3) Tremor: (4) Angina at rest: Plan Assessment/Plan: NSTEMI Atrial fibrillation with rapid ventricular response Coronary artery disease with history of three-vessel CABG back in 2010 Resting heart rate remains significantly tachycardic in the 110s. Does have a history of coronary disease and did receive a stentx1 during this hospitalization 2 days ago. Cardiorespiratory symptoms are very minimal at this time. Patient was weaned off of supplemental O2. Plan: -Cardiac medications per cardiology team -IV Lasix was put on hold for now, will plan to restart oral Lasix in a.m. -A-fib management per cardiology as well- sotalol dose increased yesterday-we will leave up-titration/cardioversion or intervention to cardiology team -Continuous telemetry monitoring - Continue to monitor on progressive care unit Hypothyroidism?Levothyroxine Anxiety disorder NOS-Continue home Xanax for now, is a poor long-term anxiety medication for patient at this age Essential tremor?continue to monitor GERD?continue PPI CODE STATUS: Full Code DVT prophylaxis: Eliquis Documented By: Acosta Bo MD 5 1014 Signed By: <Electronically signed by Acosta Bo MD> 02/15/25 1054 [facility] Work Phone: [phone]) 747-899905-21-2025 [place] [address] Hospitalist Progress Note Signed Patient: Daniela Raymundo MR#: [id number] : 1945 Acct:[id number] Age/Sex: 80 / F Adm Date: 5 Loc: Room: [address] [place] [address] Type: ADM IN Attending Dr: Acosta Bo MD Copies to: ~ Date of Service: 02/15/2025 Subjective Subjective Narrative: Patient feeling reasonably well this a.m. Denies any fever/chill, chest pain, nausea/vomiting or other symptoms at this time. She was able to be weaned off of low-level nasal cannula oxygen. Patient's was on the phone and he was updated on the plan of care as well. Heart rate remains significantly elevated at rest, in the 110s?120s heart rate range. She does not have any significant cardiorespiratory complaints at this time. Patient did have complaints of dizziness yesterday and thus IVLasix was put on hold for this morning. Exam Physical Exam Vital Signs: Temp Pulse Resp BP Pulse Ox O2 Del Method O2 Flow Rate 98.7 F 123 H 16 127/58 L 95 Room Air 1.5 02/15/25 08:00 02/15/25 08:00 02/15/25 08:00 02/15/25 08:00 02/15/25 08:00 02/15/25 08:00 02/15/25 06:07 Narrative: GEN: Resting in bed. Does seem to have increased work of breathing. Neck: No JVD. No thyromegaly. No lymphadenopathy. Lungs: Clear to auscultation bilaterally, only mildly diminished Heart: Irregularly irregular. Patient remains significantly tachycardic, with resting heart rate inthe 110s?120s Abdomen: Soft, normal bowel sounds, no rigidity, guarding, or acute peritoneal signs. Extremities: No swelling or cords in the calves bilaterally, no edema in the ankles bilaterally. Neuro: Does have a strong tremor at baseline. Strength appears 5/5 throughout Objective Lab Results 02/15/25 08:01 02/15/25 08:01 Meds Allergies and Active Meds Allergies ethyl alcohol Allergy (Severe, Verified 02/11/25 18:24) Hives Kkzdhir-KZO-BbF Reductase Inhibitor Allergy (Intermediate, Verified 02/11/25 13:23) Hives ezetimibe (From Zetia) Allergy (Verified 02/11/25 13:23) Muscle Pain Active Meds: Active Medications Generic Name Dose Route Start Last Admin Trade Name Freq PRN Reason Stop Dose Admin Acetaminophen 650 mg 02/11/25 15:55 Acetaminophen 325 Mg Tablet PO 02/11/26 15:54 Q6HR PRN Pain Scale 1 - 3 or fever Albuterol 2 puff 02/13/25 05:11 02/14/25 20:14 Albuterol Hfa 60 Puff/8 Gram Inhaler INHALATION 02/13/26 05:10 2 puff Q6H PRN Administration Shortness Of Breath Or Wheezing Alprazolam 0.5 mg 02/11/25 15:58 02/15/25 08:58 Alprazolam 0.5 Mg Tablet PO 08/10/25 15:57 0.5 mg BID PRN Administration Anxiety Alprazolam 1 mg 02/11/25 20:16 02/14/25 21:11 Alprazolam 0.5 Mg Tablet PO 08/10/25 20:15 1 mg QHS PRN Administration Anxiety Apixaban 2.5 mg 02/13/25 21:00 02/15/25 08:55 Apixaban 2.5 Mg Tablet PO 02/13/26 20:59 2.5 mg BID DUKE Administration Aspirin 81 mg 02/14/25 09:00 02/15/25 08:55 Aspirin 81 Mg Tab.Chew PO 02/14/26 08:59 81 mg DAILY DUKE Administration Atropine Sulfate 1 mg 02/13/25 10:26 Atropine Sulfate 1 Mg/10 Ml Syringe IV-PUSH ONCE PRN Symptomatic Bradycardia Clopidogrel Bisulfate 75 mg 02/14/25 09:00 02/15/25 08:55 Clopidogrel Bisulfate 75 Mg Tablet PO 02/14/26 08:59 75 mg DAILY DUKE Administration Famotidine 20 mg 02/13/25 22:54 Famotidine 20 Mg Tablet PO 02/14/26 08:59 BID PRN Heartburn Furosemide 40 mg 02/12/25 16:00 02/14/25 16:57 Furosemide 40 Mg/4 Ml Vial IV-PUSH 02/12/26 15:59 40 mg BID@0800,1600 DUKE Administration Sodium Chloride 250 mls @ 999 mls/hr 02/13/25 10:26 0.9% Sodium Chloride 250 Ml IV 02/13/26 10:25 PRN PRN Hypotension Levothyroxine Sodium 75 mcg 02/12/25 05:15 02/15/25 06:10 Levothyroxine 75 Mcg Tablet PO 02/12/26 05:14 75 mcg DAILY.0630 DUKE Administration Linagliptin 5 mg 02/12/25 09:00 02/15/25 08:56 Linagliptin 5 Mg Tablet PO 02/12/26 08:59 5 mg DAILY DUKE Administration Miscellaneous Information 1 each 02/11/25 13:18 Consult To Pharmacy MISCELLANE 02/11/26 13:17 .PHACONSULT PRN ZZ.Pharmacy Consult Protocol Nitroglycerin 0.4 mg 02/11/25 13:15 02/11/25 13:21 Nitroglycerin 0.4 Mg Tab.Subl SUBLINGUAL 02/11/26 13:14 0.4 mg Q5M PRN Administration Chest Pain Nitroglycerin 1 each 02/12/25 09:00 02/15/25 06:10 Nitroglycerin Patch 0.4 Mg/Hr 1 Each Patch.Td24 TRANSDERML 02/12/26 08:59 1each DAILY@0600 DUKE Administration Pom (Potassium 99 Mg 99 mg 02/12/25 09:00 02/15/25 08:56 Tablet) PO 02/12/26 08:59 99 mg DAILY DUKE Administration Pom (Pitavastatin 2 mg 02/12/25 09:00 02/15/25 08:56 Calcium [Livalo] 2 PO 02/12/26 08:59 2 mg Mg Tablet) DAILY DUKE Administration Pantoprazole Sodium 40 mg 02/14/25 07:30 02/15/25 08:56 Pantoprazole 40 Mg Tablet. PO 02/14/26 07:29 40 mg BID.AC DUKE Administration Potassium Chloride 40 meq 02/12/25 08:38 Potassium Chloride Er 20 Meq Tab.Er.Prt PO STAT PRN Hypokalemia Prochlorperazine Edisylate 5 mg 02/12/25 14:25 Prochlorperazine Edisylate 10 Mg/2 Ml Vial IV-PUSH 02/12/26 14:24 Q6H PRN Nausea OR Vomiting Sodium Chloride 0 ml 02/11/25 13:04 02/14/25 16:58 Sodium Chloride 0.9 % 10 Ml Syringe IV-PUSH 02/11/26 13:03 10 ml PRN PRN Administration Flush Sodium Chloride 0 ml 02/12/25 08:38 Sodium Chloride 0.9 % 10 Ml Syringe IV-PUSH 02/12/26 08:37 PRN PRN Flush Sotalol HCl 160 mg 02/14/25 21:00 02/15/25 08:55 Sotalol 80 Mg Tablet PO 02/14/26 20:59 160 mg BID DUKE Administration A&P - Hospitalist Assessment/Plan (1) Atrial fibrillation with RVR: (2) Coronary artery disease: (3) Tremor: (4) Angina at rest: Plan Assessment/Plan: NSTEMI Atrial fibrillation with rapid ventricular response Coronary artery disease with history of three-vessel CABG back in 2010 Resting heart rate remains significantly tachycardic in the 110s. Does have a history of coronary disease and did receive a stentx1 during this hospitalization 2 days ago. Cardiorespiratory symptoms are very minimal at this time. Patient was weaned off of supplemental O2. Plan: -Cardiac medications per cardiology team -IV Lasix was put on hold for now, will plan to restart oral Lasix in a.m. -A-fib management per cardiology as well- sotalol dose increased yesterday-we will leave up-titration/cardioversion or intervention to cardiology team -Continuous telemetry monitoring - Continue to monitor on progressive care unit Hypothyroidism?Levothyroxine Anxiety disorder NOS-Continue home Xanax for now, is a poor long-term anxiety medication for patient at this age Essential tremor?continue to monitor GERD?continue PPI CODE STATUS: Full Code DVT prophylaxis: Eliquis Documented By: Acosta Bo MD 5 1014 Signed By: 02/15/25 1054 [facility]05-20-2025 Progress note Author Acosta Bo [facility] Note Date/Time February 14, 2025 2:04p m [facility] [address] [place] [address] Hospitalist Progress Note Signed Patient: Daniela Raymundo MR#: [id number] : 1945 Acct:[id number] Age/Sex: 80 / F Adm Date: 5 Loc: Room: [address] [place] [address] Type: ADM IN Attending Dr: Acosta Bo MD Copies to: ~ Date of Service: 02/14/2025 Subjective Subjective Narrative: Patient feels well today when compared to yesterday. Resting heart rate does remain in the 110s?low 120s. She does not have as much shortness of breath whencompared to yesterday. She denies any fever/chill, chest pain, nausea/vomiting or other symptoms at this time. Exam Physical Exam Vital Signs: Temp Pulse Resp BP Pulse Ox O2 Del Method O2 Flow Rate 97.7 F 102 H 20 104/54 L 99 Nasal Cannula 1 02/14/25 12:00 02/14/25 12:00 02/14/25 08:00 02/14/25 08:00 02/14/25 12:00 02/14/25 12:00 02/14/25 12:00 Narrative: GEN: Resting in bed. Does seem to have increased work of breathing. Neck: No JVD. No thyromegaly. No lymphadenopathy. Lungs: Now with mild wheezing while sitting upright in bed. Has a pulse oximetry of 95% on room air for me. Heart: Irregularly irregular. On the telemetry right now her A-fib is running at 55 bpm. To auscultation I hear no murmurs, rubs, or gallops. Abdomen: Soft, normal bowel sounds, no rigidity, guarding, or acute peritoneal signs. Extremities: No swelling or cords in the calves bilaterally, no edema in the ankles bilaterally. Neuro: Does have a strong tremor at baseline. This tremor was not present when I walked in the room and she was sleeping but as soon as I woke her up she beganhaving the tremor. Objective Lab Results 02/14/25 06:17 02/14/25 06:17 Meds Allergies and Active Meds Allergies ethyl alcohol Allergy (Severe, Verified 02/11/25 18:24) Hives Gnavdsl-PCM-GzI Reductase Inhibitor Allergy (Intermediate, Verified 02/11/25 13:23) Hives ezetimibe (From Zetia) Allergy (Verified 02/11/25 13:23) Muscle Pain Active Meds: Active Medications Generic Name Dose Route Start Last Admin Trade Name Freq PRN Reason Stop Dose Admin Acetaminophen 650 mg 02/11/25 15:55 Acetaminophen 325 Mg Tablet PO 02/11/26 15:54 Q6HR PRN Pain Scale 1 - 3 or fever Albuterol 2 puff 02/13/25 05:11 02/13/25 17:28 Albuterol Hfa 60 Puff/8 Gram Inhaler INHALATION 02/13/26 05:10 2 puff Q6H PRN Administration Shortness Of Breath Or Wheezing Alprazolam 0.5 mg 02/11/25 15:58 02/12/25 05:12 Alprazolam 0.5 Mg Tablet PO 08/10/25 15:57 0.5 mg BID PRN Administration Anxiety Alprazolam 1 mg 02/11/25 20:16 02/13/25 20:42 Alprazolam 0.5 Mg Tablet PO 08/10/25 20:15 1 mg QHS PRN Administration Anxiety Apixaban 2.5 mg 02/13/25 21:00 02/14/25 08:24 Apixaban 2.5 Mg Tablet PO 02/13/26 20:59 2.5 mg BID DUKE Administration Aspirin 81 mg 02/14/25 09:00 02/14/25 08:22 Aspirin 81 Mg Tab.Chew PO 02/14/26 08:59 81 mg DAILY DUKE Administration Atropine Sulfate 1 mg 02/13/25 10:26 Atropine Sulfate 1 Mg/10 Ml Syringe IV-PUSH ONCE PRN Symptomatic Bradycardia Clopidogrel Bisulfate 75 mg 02/14/25 09:00 02/14/25 08:21 Clopidogrel Bisulfate 75 Mg Tablet PO 02/14/26 08:59 75 mg DAILY DUKE Administration Famotidine 20 mg 02/13/25 22:54 Famotidine 20 Mg Tablet PO 02/14/26 08:59 BID PRN Heartburn Furosemide 40 mg 02/12/25 16:00 02/14/25 08:24 Furosemide 40 Mg/4 Ml Vial IV-PUSH 02/12/26 15:59 40 mg BID@0800,1600 DUKE Administration Sodium Chloride 250 mls @ 999 mls/hr 02/13/25 10:26 0.9% Sodium Chloride 250 Ml IV 02/13/26 10:25 PRN PRN Hypotension Levothyroxine Sodium 75 mcg 02/12/25 05:15 02/14/25 06:33 Levothyroxine 75 Mcg Tablet PO 02/12/26 05:14 75 mcg DAILY.0630 DUKE Administration Linagliptin 5 mg 02/12/25 09:00 02/14/25 08:24 Linagliptin 5 Mg Tablet PO 02/12/26 08:59 5 mg DAILY DUKE Administration Miscellaneous Information 1 each 02/11/25 13:18 Consult To Pharmacy MISCELLANE 02/11/26 13:17 .PHACONSULT PRN ZZ.Pharmacy Consult Protocol Nitroglycerin 0.4 mg 02/11/25 13:15 02/11/25 13:21 Nitroglycerin 0.4 Mg Tab.Subl SUBLINGUAL 02/11/26 13:14 0.4 mg Q5M PRN Administration Chest Pain Nitroglycerin 1 each 02/12/25 09:00 02/14/25 06:33 Nitroglycerin Patch 0.4 Mg/Hr 1 Each Patch.Td24 TRANSDERML 02/12/26 08:59 1each DAILY@0600 DUKE Administration Pom (Potassium 99 Mg 99 mg 02/12/25 09:00 02/14/25 08:25 Tablet) PO 02/12/26 08:59 99 mg DAILY DUKE Administration Pom (Pitavastatin 2 mg 02/12/25 09:00 02/14/25 08:25 Calcium [Livalo] 2 PO 02/12/26 08:59 2 mg Mg Tablet) DAILY DUKE Administration Pantoprazole Sodium 40 mg 02/14/25 07:30 02/14/25 06:33 Pantoprazole 40 Mg Tablet.Dr PO 02/14/26 07:29 40 mg BID.AC DUKE Administration Potassium Chloride 40 meq 02/12/25 08:38 Potassium Chloride Er 20 Meq Tab.Er.Prt PO STAT PRN Hypokalemia Prochlorperazine Edisylate 5 mg 02/12/25 14:25 Prochlorperazine Edisylate 10 Mg/2 Ml Vial IV-PUSH 02/12/26 14:24 Q6H PRN Nausea OR Vomiting Sodium Chloride 0 ml 02/11/25 13:04 02/14/25 08:20 Sodium Chloride 0.9 % 10 Ml Syringe IV-PUSH 02/11/26 13:03 10 ml PRN PRN Administration Flush Sodium Chloride 0 ml 02/12/25 08:38 Sodium Chloride 0.9 % 10 Ml Syringe IV-PUSH 02/12/26 08:37 PRN PRN Flush Sotalol HCl 160 mg 02/14/25 21:00 Sotalol 80 Mg Tablet PO 02/14/26 20:59 BID DUKE A&P - Hospitalist Assessment/Plan (1) Atrial fibrillation with RVR: (2) Coronary artery disease: (3) Tremor: (4) Angina at rest: Plan Assessment/Plan: NSTEMI Atrial fibrillation with rapid ventricular response Coronary artery disease with history of three-vessel CABG back in 2010 Intolerance to statins and Zetia Plan: -Appreciate cardiology assessment after cardiac catheterization, status post stent x 1 yesterday -Cardiac medications per cardiology team -A-fib management per cardiology as well- sotalol dose increased -Continuous telemetry monitoring - Continue to monitor on progressive care unit Hypothyroidism?Levothyroxine Anxiety disorder NOS-Continue home Xanax for now, is a poor long-term anxiety medication for patient at this age CODE STATUS: Full Code DVT prophylaxis: Eliquis Documented By: Acosta Bo MD 5 1323 Signed By: <Electronically signed by Acosta Bo MD> 02/14/25 1401 [facility] Work Phone: 1(160) 386-506905-20-2025 [place] [address] Hospitalist Progress Note Signed Patient: Daniela Raymundo MR#: [id number] : 1945 Acct:[id number] Age/Sex: 80 / F Adm Date: 5 Loc: Room: 0D5869-4 Type: ADM IN Attending Dr: Acosta Bo MD Copies to: ~ Date of Service: 02/14/2025 Subjective Subjective Narrative: Patient feels well today when compared to yesterday. Resting heart rate does remain in the 110s?[id number]. She does not have as much shortness of breath whencompared to yesterday. She denies any fever/chill, chest pain, nausea/vomiting or other symptoms at this time. Exam Physical Exam Vital Signs: Temp Pulse Resp BP Pulse Ox O2 Del Method O2 Flow Rate 97.7 F 102 H 20 104/54 L 99 Nasal Cannula 1 02/14/25 12:00 02/14/25 12:00 02/14/25 08:00 02/14/25 08:00 02/14/25 12:00 02/14/25 12:00 02/14/25 12:00 Narrative: GEN: Resting in bed. Does seem to have increased work of breathing. Neck: No JVD. No thyromegaly. No lymphadenopathy. Lungs: Now with mild wheezing while sitting upright in bed. Has a pulse oximetry of 95% on room airfor me. Heart: Irregularly irregular. On the telemetry right now her A-fib is running at 55 bpm. To auscultation I hear no murmurs, rubs, or gallops. Abdomen: Soft, normal bowel sounds, no rigidity, guarding, or acute peritoneal signs. Extremities: No swelling or cords in the calves bilaterally, no edema in the ankles bilaterally. Neuro: Does have a strong tremor at baseline. This tremor was not present when I walked in the roomand she was sleeping but as soon as I woke her up she beganhaving the tremor. Objective Lab Results 02/14/25 06:17 02/14/25 06:17 Meds Allergies and Active Meds Allergies ethyl alcohol Allergy (Severe, Verified 02/11/25 18:24) Hives Xsmifqq-XZT-WzS Reductase Inhibitor Allergy (Intermediate, Verified 02/11/25 13:23) Hives ezetimibe (From Zetia) Allergy (Verified 02/11/25 13:23) Muscle Pain Active Meds: Active Medications Generic Name Dose Route Start Last Admin Trade Name Freq PRN Reason Stop Dose Admin Acetaminophen 650 mg 02/11/25 15:55 Acetaminophen 325 Mg Tablet PO 02/11/26 15:54 Q6HR PRN Pain Scale 1 - 3 or fever Albuterol 2 puff 02/13/25 05:11 02/13/25 17:28 Albuterol Hfa 60 Puff/8 Gram Inhaler INHALATION 02/13/26 05:10 2 puff Q6H PRN Administration Shortness Of Breath Or Wheezing Alprazolam 0.5 mg 02/11/25 15:58 02/12/25 05:12 Alprazolam 0.5 Mg Tablet PO 08/10/25 15:57 0.5 mg BID PRN Administration Anxiety Alprazolam 1 mg 02/11/25 20:16 02/13/25 20:42 Alprazolam 0.5 Mg Tablet PO 08/10/25 20:15 1 mg QHS PRN Administration Anxiety Apixaban 2.5 mg 02/13/25 21:00 02/14/25 08:24 Apixaban 2.5 Mg Tablet PO 02/13/26 20:59 2.5 mg BID DUKE Administration Aspirin 81 mg 02/14/25 09:00 02/14/25 08:22 Aspirin 81 Mg Tab.Chew PO 02/14/26 08:59 81 mg DAILY DUKE Administration Atropine Sulfate 1 mg 02/13/25 10:26 Atropine Sulfate 1 Mg/10 Ml Syringe IV-PUSH ONCE PRN Symptomatic Bradycardia Clopidogrel Bisulfate 75 mg 02/14/25 09:00 02/14/25 08:21 Clopidogrel Bisulfate 75 Mg Tablet PO 02/14/26 08:59 75 mg DAILY DUKE Administration Famotidine 20 mg 02/13/25 22:54 Famotidine 20 Mg Tablet PO 02/14/26 08:59 BID PRN Heartburn Furosemide 40 mg 02/12/25 16:00 02/14/25 08:24 Furosemide 40 Mg/4 Ml Vial IV-PUSH 02/12/26 15:59 40 mg BID@0800,1600 DUKE Administration Sodium Chloride 250 mls @ 999 mls/hr 02/13/25 10:26 0.9% Sodium Chloride 250 Ml IV 02/13/26 10:25 PRN PRN Hypotension Levothyroxine Sodium 75 mcg 02/12/25 05:15 02/14/25 06:33 Levothyroxine 75 Mcg Tablet PO 02/12/26 05:14 75 mcg DAILY.0630 DUKE Administration Linagliptin 5 mg 02/12/25 09:00 02/14/25 08:24 Linagliptin 5 Mg Tablet PO 02/12/26 08:59 5 mg DAILY DUKE Administration Miscellaneous Information 1 each 02/11/25 13:18 Consult To Pharmacy MISCELLANE 02/11/26 13:17 .PHACONSULT PRN ZZ.Pharmacy Consult Protocol Nitroglycerin 0.4 mg 02/11/25 13:15 02/11/25 13:21 Nitroglycerin 0.4 Mg Tab.Subl SUBLINGUAL 02/11/26 13:14 0.4 mg Q5M PRN Administration Chest Pain Nitroglycerin 1 each 02/12/25 09:00 02/14/25 06:33 Nitroglycerin Patch 0.4 Mg/Hr 1 Each Patch.Td24 TRANSDERML 02/12/26 08:59 1each DAILY@0600 DUKE Administration Pom (Potassium 99 Mg 99 mg 02/12/25 09:00 02/14/25 08:25 Tablet) PO 02/12/26 08:59 99 mg DAILY DUKE Administration Pom (Pitavastatin 2 mg 02/12/25 09:00 02/14/25 08:25 Calcium [Livalo] 2 PO 02/12/26 08:59 2 mg Mg Tablet) DAILY DUKE Administration Pantoprazole Sodium 40 mg 02/14/25 07:30 02/14/25 06:33 Pantoprazole 40 Mg Tablet.Dr PO 02/14/26 07:29 40 mg BID.AC DUKE Administration Potassium Chloride 40 meq 02/12/25 08:38 Potassium Chloride Er 20 Meq Tab.Er.Prt PO STAT PRN Hypokalemia Prochlorperazine Edisylate 5 mg 02/12/25 14:25 Prochlorperazine Edisylate 10 Mg/2 Ml Vial IV-PUSH 02/12/26 14:24 Q6H PRN Nausea OR Vomiting Sodium Chloride 0 ml 02/11/25 13:04 02/14/25 08:20 Sodium Chloride 0.9 % 10 Ml Syringe IV-PUSH 02/11/26 13:03 10 ml PRN PRN Administration Flush Sodium Chloride 0 ml 02/12/25 08:38 Sodium Chloride 0.9 % 10 Ml Syringe IV-PUSH 02/12/26 08:37 PRN PRN Flush Sotalol HCl 160 mg 02/14/25 21:00 Sotalol 80 Mg Tablet PO 02/14/26 20:59 BID DUKE A&P - Hospitalist Assessment/Plan (1) Atrial fibrillation with RVR: (2) Coronary artery disease: (3) Tremor: (4) Angina at rest: Plan Assessment/Plan: NSTEMI Atrial fibrillation with rapid ventricular response Coronary artery disease with history of three-vessel CABG back in 2010 Intolerance to statins and Zetia Plan: -Appreciate cardiology assessment after cardiac catheterization, status post stent x 1 yesterday -Cardiac medications per cardiology team -A-fib management per cardiology as well- sotalol dose increased -Continuous telemetry monitoring - Continue to monitor on progressive care unit Hypothyroidism?Levothyroxine Anxiety disorder NOS-Continue home Xanax for now, is a poor long-term anxiety medication for patient at this age CODE STATUS: Full Code DVT prophylaxis: Eliquis Documented By: Acosta Bo MD 5 1323 Signed By: 02/14/25 1404 [facility]05-20-2025 Progress note Author Jeff Sol [facility] Note Date/Time February 14, 2025 10:35 am [facility] [address] [place] [address] Cardiology Progress Note Signed Patient: Daniela Raymundo MR#: [id number] : 1945 Acct:[id number] Age/Sex: 80 / F Adm Date: 5 Loc: Room: [address] [place] [address] Type: ADM IN Attending Dr: Acosta Bo MD Copies to: ~ Date of Service: 02/14/2025 Subjective Principal diagnosis: Non-ST elevation GA, ASHD, A-fib with RVR Interval history: Ms. Raymundo is a 80 year old female who is being seen at the request of the hospitalist for evaluation of atrial fibrillation, dyspnea and elevated troponin. Patient follows with Dr. Sol with a known history of coronary bypass surgery done in 2009 at [facility] with no events noted since. Last nuclear stress test in 2022 demonstrated inferolateral infarction with no ischemia and with normal ejection fraction. The patient for the last 7 to 10 days has been experiencing symptoms of chest heaviness, arm pain and neck discomfort that seems to be constant. She did not have nitroglycerin to use. She called the office and apparently it was decided to get 48-hour Holter monitor which was returned this past Thursday. It is not reported yet. The patient presented with dyspnea, chest pain and palpitation and was found to be in atrial flutter with variable AV conduction, she was started on Cardizem drip, chest x-ray was unremarkable. Her initial troponin was 76 pg/mL and now has reached a value of 1779 pg/mL. Her symptoms of chest pain have lessened but has very noticeable dyspnea during casual conversation. She has actually audible wheezing as well. Her BNP was elevated at 579 pg/mL. There is no anemia or significant renal impairment. No indication for pneumoniaor active infection. Patient has been chronically anticoagulated with Eliquis for paroxysmal atrial fibrillation but no antiarrhythmic therapy. She has longstanding diabetes, hyperlipidemia and hypertension. She has no previous stroke but reports history of TIA. Has had no bleeding complications on anticoagulation. Has intolerance to a number of statins and presently on Pitavastatin which seems to be quite expensive, LDL cholesterol though is on target. 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 She lives with her . Denies any hemoptysis, melena or hematuria. Has no orthopnea PND or lower extremity edema but recently has developed progressive dyspnea. There hasbeen no recent echocardiogram that I could find. Patient has very advanced caseof essential tremor Interim evaluation 02/14/2025: Patient is stable, with continued A-fib with RVR currently on sotalol 80 twice daily; diltiazem was discontinued at some point yesterday. Patient remains anticoagulated and on antiplatelet therapy as well. Patient underwent left heart catheterization yesterday with ad hoc PCI protectedleft main?ostial/proximal circumflex with drug-eluting stent (see details of revascularization and interventional report); LV function is preserved; PATEL graft to LAD, vein graft to RCA are both patent. Patient with persistent A-fib with RVR with heart rates between 110-140; will escalate sotalol to 160 twice daily with the potential to add diltiazem/metoprolol if persistently tachycardic. We did discuss possibility ofcardioversion if necessary Exam Physical Exam Vital Signs: Temp Pulse Resp BP Pulse Ox O2 Del Method O2 Flow Rate 98.8 F 120 H 20 104/54 L 96 Nasal Cannula 1 02/14/25 08:00 02/14/25 08:00 02/14/25 08:00 02/14/25 08:00 02/14/25 08:00 02/14/25 08:00 02/14/25 08:00 Objective Labs 02/14/25 06:17 02/14/25 06:17 Labs: Laboratory Results - last 24 hr 02/14/25 06:17 Corrected WBC 12.4 H Uncorrected WBC Count 12.4 H RBC 3.59 L Hgb 9.8 L Hct 30.1 L MCV 84.1 MCH 27.2 MCHC 32.4 RDW 14.8 Plt Count 159 MPV 10.2 Neut % (Auto) 70.6 Lymph % (Auto) 15.3 Beaver % (Auto) 11.1 Eos % (Auto) 2.6 Baso % (Auto) 0.4 Nucleat RBC Rel Count 0.0 Neut # (Auto) 8.8 H Lymph # (Auto) 1.9 Beaver # (Auto) 1.4 H Eos # (Auto) 0.3 Baso # (Auto) 0.1 PHA Creatinine Clear 27.73 Sodium 136 Potassium 4.0 Chloride 104 Carbon Dioxide 26.5 Anion Gap 9.5 BUN 20 Creatinine 1.43 H Est GFR (CKD-EPI) 36.619 Glucose 156 H Calcium 9.2 Troponin I High Sens 1128 H* A&P - Cardiology (1) Acute coronary syndrome: Assessment/Problem Details: This may have been triggered by atrial fibrillation with RVR, underlying CAD progression cannot be excluded, last nuclear stress test 2022 revealed no ischemia Plan: Patient will benefit from invasive cardiac workup with cardiac catheterization to be scheduled tomorrow, meanwhile continue heparin and aspirin. Code(s): I24.9 - Acute ischemic heart disease, unspecified (2) History of coronary artery bypass graft x 3: Assessment/Problem Details: This was back in 2009 with no cardiac catheterization since. Plan: Continue secondary prevention measures, due to ACS invasive cardiac evaluation is recommended Code(s): Z95.1 - Presence of aortocoronary bypass graft (3) Essential tremor: Assessment/Problem Details: Chronic Plan: No specific therapy is available Code(s): G25.0 - Essential tremor (4) Type 2 diabetes mellitus: Plan: Continue home medications with Januvia Code(s): E11.9 - Type 2 diabetes mellitus without complications (5) Atrial fibrillation with RVR: Assessment/Problem Details: Patient asymptomatic, currently on Cardizem drip and heparin. Plan: Patient will benefit from antiarrhythmic therapy to prevent recurrent atrial fibrillation and hopefully to restore normal sinus rhythm. Will add sotalol 80 mg twice daily, daily EKG, cardioversion if necessary Code(s): I48.91 - Unspecified atrial fibrillation (6) Chronic kidney disease: Assessment/Problem Details: Stage III Plan: Avoid nephrotoxic medications Code(s): N18.9 - Chronic kidney disease, unspecified (7) Dyslipidemia: Assessment/Problem Details: Intolerant to most of the statins Plan: Patient seem to have difficulties affording Livalo, consider pravastatin Code(s): E78.5 - Hyperlipidemia, unspecified Documented By: Jeff Sol DO 02/14/25 1032 Signed By: <Electronically signed by Jeff Sol DO> 02/14/25 1035 [facility] Work Phone: 1(501) 775-739205-20-2025 [place] [address] Cardiology Progress Note Signed Patient: Daniela Raymundo MR#: [id number] : 1945 Acct:[id number] Age/Sex: 80 / F Adm Date: 5 Loc: Room: [address] [place] [address] Type: ADM IN Attending Dr: Acosta Bo MD Copies to: ~ Date of Service: 02/14/2025 Subjective Principal diagnosis: Non-ST elevation GA, ASHD, A-fib with RVR Interval history: Ms. Raymundo is a 80 year old female who is being seen at the request of the hospitalist for evaluation of atrial fibrillation, dyspnea and elevated troponin. Patient follows with Dr. Sol with a known history of coronary bypass surgery done in 2009 at [facility] with no events noted since. Last nuclear stress test in 2022 demonstrated inferolateral infarction with no ischemia and with normal ejection fraction. The patient for the last 7 to 10 days has been experiencing symptoms of chest heaviness, arm pain and neck discomfort that seems to be constant. She did not have nitroglycerin to use. She called the office and apparently it was decided to get 48-hour Holter monitor which was returned this past Thursday. It is not reported yet. The patient presented with dyspnea, chest pain and palpitation and was found to be in atrial flutter with variable AV conduction, she was started on Cardizem drip, chest x-ray was unremarkable. Her initial troponin was 76 pg/mL and now has reached a value of 1779 pg/mL. Her symptoms of chest pain have lessened but has very noticeable dyspnea during casual conversation. She has actually audible wheezing as well. Her BNP was elevated at 579 pg/mL. There is no anemia or significant renal impairment. No indication for pneumoniaor active infection. Patient has been chronically anticoagulated with Eliquis for paroxysmal atrial fibrillation but no antiarrhythmic therapy. She has longstanding diabetes, hyperlipidemia and hypertension. She has no previous stroke but reports history of TIA. Has had no bleeding complications on antico agulation. Has intolerance to a number of statins and presently on Pitavastatin which seems to be quite expensive, LDL cholesterol though is on target. 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 She lives with her . Denies any hemoptysis, melena or hematuria. Has no orthopnea PND or lower extremity edema but recently has developed progressive dyspnea. There hasbeen no recent echocardiogram that I could find. Patient has very advanced caseof essential tremor Interim evaluation 02/14/2025: Patient is stable, with continued A-fib with RVR currently on [id number] twice daily; diltiazem was discontinued at some point yesterday. Patient remains anticoagulated and on antiplatelet therapy as well. Patient underwent left heart catheterization yesterday with ad hoc PCI protectedleft main?ostial/proximal circumflex with drug-eluting stent (see details of revascularization and interventional report); LV function is preserved; PATEL graft to LAD, vein graft to RCA are both patent. Patient with persistent A-fib with RVR with heart rates between 110-140; will escalate sotalol to 160 twice daily with the potential to add diltiazem/metoprolol if persistently tachycardic. We did discuss possibility ofcardioversion if necessary Exam Physical Exam Vital Signs: Temp Pulse Resp BP Pulse Ox O2 Del Method O2 Flow Rate 98.8 F 120 H 20 104/54 L 96 Nasal Cannula 1 02/14/25 08:00 02/14/25 08:00 02/14/25 08:00 02/14/25 08:00 02/14/25 08:00 02/14/25 08:00 02/14/25 08:00 Objective Labs 02/14/25 06:17 02/14/25 06:17 Labs: Laboratory Results - last 24 hr 02/14/25 06:17 Corrected WBC 12.4 H Uncorrected WBC Count 12.4 H RBC 3.59 L Hgb 9.8 L Hct 30.1 L MCV 84.1 MCH 27.2 MCHC 32.4 RDW 14.8 Plt Count 159 MPV 10.2 Neut % (Auto) 70.6 Lymph % (Auto) 15.3 Beaver % (Auto) 11.1 Eos % (Auto) 2.6 Baso % (Auto) 0.4 Nucleat RBC Rel Count 0.0 Neut # (Auto) 8.8 H Lymph # (Auto) 1.9 Beaver # (Auto) 1.4 H Eos # (Auto) 0.3 Baso # (Auto) 0.1 PHA Creatinine Clear 27.73 Sodium 136 Potassium 4.0 Chloride 104 Carbon Dioxide 26.5 Anion Gap 9.5 BUN 20 Creatinine 1.43 H Est GFR (CKD-EPI) 36.619 Glucose 156 H Calcium 9.2 Troponin I High Sens 1128 H* A&P - Cardiology (1) Acute coronary syndrome: Assessment/Problem Details: This may have been triggered by atrial fibrillation with RVR, underlying CAD progression cannot be excluded, last nuclear stress test 2022 revealed no ischemia Plan: Patient will benefit from invasive cardiac workup with cardiac catheterization to be scheduled tomorrow, meanwhile continue heparin and aspirin. Code(s): I24.9 - Acute ischemic heart disease, unspecified (2) History of coronary artery bypass graft x 3: Assessment/Problem Details: This was back in 2009 with no cardiac catheterization since. Plan: Continue secondary prevention measures, due to ACS invasive cardiac evaluation is recommended Code(s): Z95.1 - Presence of aortocoronary bypass graft (3) Essential tremor: Assessment/Problem Details: Chronic Plan: No specific therapy is available Code(s): G25.0 - Essential tremor (4) Type 2 diabetes mellitus: Plan: Continue home medications with Januvia Code(s): E11.9 - Type 2 diabetes mellitus without complications (5) Atrial fibrillation with RVR: Assessment/Problem Details: Patient asymptomatic, currently on Cardizem drip and heparin. Plan: Patient will benefit from antiarrhythmic therapy to prevent recurrent atrial fibrillation and hopefully to restore normal sinus rhythm. Will add sotalol 80 mg twice daily, daily EKG, cardioversion ifnecessary Code(s): I48.91 - Unspecified atrial fibrillation (6) Chronic kidney disease: Assessment/Problem Details: Stage III Plan: Avoid nephrotoxic medications Code(s): N18.9 - Chronic kidney disease, unspecified (7) Dyslipidemia: Assessment/Problem Details: Intolerant to most of the statins Plan: Patient seem to have difficulties affording Livalo, consider pravastatin Code(s): E78.5 - Hyperlipidemia, unspecified Documented By: Jeff Sol DO 02/14/25 1032 Signed By: 02/14/25 1035 [facility]05-20-2025 Progress note Author Acosta oB [facility] Note Date/Time February 13, 2025 10:49 pm [facility] EN[facility] [address] [place] [address] Hospitalist Progress Note Signed Patient: Daniela Raymundo MR#: [id number] : 1945 Acct:[id number] Age/Sex: 80 / F Adm Date: 5 Loc: Room: [address] [place] [address] Type: ADM IN Attending Dr: Acosta Bo MD Copies to: ~ Date of Service: 02/13/2025 Subjective Subjective Narrative: Patient seen and assessed earlier this evening after cardiac catheterization. She is somewhat perseverating about having to get her PPI. She is not confused,but is somewhat angry, and thinks she did not receive it on time when she already, earlier in the night. Exam Physical Exam Vital Signs: Temp Pulse Resp BP Pulse Ox O2 Del Method O2 Flow Rate 98.4 F 114 H 18 111/64 100 Nasal Cannula 2 02/13/25 20:08 02/13/25 20:08 02/13/25 20:08 02/13/25 20:08 02/13/25 20:08 02/13/25 20:08 02/13/25 20:08 Narrative: GEN: Resting in bed. Does seem to have increased work of breathing. Neck: No JVD. No thyromegaly. No lymphadenopathy. Lungs: Now with mild wheezing while sitting upright in bed. Has a pulse oximetry of 95% on room air for me. Heart: Irregularly irregular. On the telemetry right now her A-fib is running at 55 bpm. To auscultation I hear no murmurs, rubs, or gallops. Abdomen: Soft, normal bowel sounds, no rigidity, guarding, or acute peritoneal signs. Extremities: No swelling or cords in the calves bilaterally, no edema in the ankles bilaterally. Neuro: Does have a strong tremor at baseline. This tremor was not present when I walked in the room and she was sleeping but as soon as I woke her up she beganhaving the tremor. Objective Lab Results 02/13/25 04:47 02/13/25 04:06 Meds Allergies and Active Meds Allergies ethyl alcohol Allergy (Severe, Verified 02/11/25 18:24) Hives Vohycwb-IRE-TgK Reductase Inhibitor Allergy (Intermediate, Verified 02/11/25 13:23) Hives ezetimibe (From Zetia) Allergy (Verified 02/11/25 13:23) Muscle Pain Active Meds: Active Medications Generic Name Dose Route Start Last Admin Trade Name Freq PRN Reason Stop Dose Admin Acetaminophen 650 mg 02/11/25 15:55 Acetaminophen 325 Mg Tablet PO 02/11/26 15:54 Q6HR PRN Pain Scale 1 - 3 or fever Albuterol 2 puff 02/13/25 05:11 02/13/25 17:28 Albuterol Hfa 60 Puff/8 Gram Inhaler INHALATION 02/13/26 05:10 2 puff Q6H PRN Administration Shortness Of Breath Or Wheezing Alprazolam 0.5 mg 02/11/25 15:58 02/12/25 05:12 Alprazolam 0.5 Mg Tablet PO 08/10/25 15:57 0.5 mg BID PRN Administration Anxiety Alprazolam 1 mg 02/11/25 20:16 02/13/25 20:42 Alprazolam 0.5 Mg Tablet PO 08/10/25 20:15 1 mg QHS PRN Administration Anxiety Apixaban 2.5 mg 02/13/25 21:00 02/13/25 20:41 Apixaban 2.5 Mg Tablet PO 02/13/26 20:59 2.5 mg BID DUKE Administration Aspirin 81 mg 02/14/25 09:00 Aspirin 81 Mg Tab.Chew PO 02/14/26 08:59 DAILY DUKE Atropine Sulfate 1 mg 02/13/25 10:26 Atropine Sulfate 1 Mg/10 Ml Syringe IV-PUSH ONCE PRN Symptomatic Bradycardia Clopidogrel Bisulfate 75 mg 02/14/25 09:00 Clopidogrel Bisulfate 75 Mg Tablet PO 02/14/26 08:59 DAILY DUKE Furosemide 40 mg 02/12/25 16:00 02/13/25 16:56 Furosemide 40 Mg/4 Ml Vial IV-PUSH 02/12/26 15:59 40 mg BID@0800,1600 DUKE Administration Sodium Chloride 250 mls @ 999 mls/hr 02/13/25 10:26 0.9% Sodium Chloride 250 Ml IV 02/13/26 10:25 PRN PRN Hypotension Levothyroxine Sodium 75 mcg 02/12/25 05:15 02/13/25 06:01 Levothyroxine 75 Mcg Tablet PO 02/12/26 05:14 75 mcg DAILY.0630 DUKE Administration Linagliptin 5 mg 02/12/25 09:00 02/13/25 09:39 Linagliptin 5 Mg Tablet PO 02/12/26 08:59 Not Given DAILY DUKE Miscellaneous Information 1 each 02/11/25 13:18 Consult To Pharmacy MISCELLANE 02/11/26 13:17 .PHACONSULT PRN ZZ.Pharmacy Consult Protocol Nitroglycerin 0.4 mg 02/11/25 13:15 02/11/25 13:21 Nitroglycerin 0.4 Mg Tab.Subl SUBLINGUAL 02/11/26 13:14 0.4 mg Q5M PRN Administration Chest Pain Nitroglycerin 1 each 02/12/25 09:00 02/13/25 06:01 Nitroglycerin Patch 0.4 Mg/Hr 1 Each Patch.Td24 TRANSDERML 02/12/26 08:59 1each DAILY@0600 DUKE Administration Pom (Potassium 99 Mg 99 mg 02/12/25 09:00 02/13/25 08:06 Tablet) PO 02/12/26 08:59 Not Given DAILY DUKE Pom (Pitavastatin 2 mg 02/12/25 09:00 02/13/25 08:06 Calcium [Livalo] 2 PO 02/12/26 08:59 Not Given Mg Tablet) DAILY DUKE Pantoprazole Sodium 40 mg 02/11/25 21:00 02/13/25 20:41 Pantoprazole 40 Mg Tablet. PO 02/11/26 20:59 40 mg BID DUKE Administration Potassium Chloride 40 meq 02/12/25 08:38 Potassium Chloride Er 20 Meq Tab.Er.Prt PO STAT PRN Hypokalemia Prochlorperazine Edisylate 5 mg 02/12/25 14:25 Prochlorperazine Edisylate 10 Mg/2 Ml Vial IV-PUSH 02/12/26 14:24 Q6H PRN Nausea OR Vomiting Sodium Chloride 0 ml 02/11/25 13:04 02/13/25 16:57 Sodium Chloride 0.9 % 10 Ml Syringe IV-PUSH 02/11/26 13:03 10 ml PRN PRN Administration Flush Sodium Chloride 0 ml 02/12/25 08:38 Sodium Chloride 0.9 % 10 Ml Syringe IV-PUSH 02/12/26 08:37 PRN PRN Flush Sotalol HCl 80 mg 02/12/25 09:00 02/13/25 20:41 Sotalol 80 Mg Tablet PO 02/12/26 08:59 80 mg BID DUKE Administration A&P - Hospitalist Assessment/Plan (1) Atrial fibrillation with RVR: (2) Coronary artery disease: (3) Tremor: (4) Angina at rest: Plan Assessment: NSTEMI Atrial fibrillation with rapid ventricular response. Coronary artery disease with history of three-vessel CABG back in 2010. Intolerance to statins and Zetia. Plan: -Appreciate cardiology assessment and cardiac catheterization, status post stent x 1 -Cardiac medications per cardiology team -Continuous telemetry monitoring. -A-fib management per cardiology as well - Continue to monitor on progressive care unit Hypothyroidism?levothyroxine Anxiety disorder NOS -Continue home Xanax for now, is a poor long-term anxiety medication for patient at this age CODE STATUS: Full code DVT prophylaxis: Eliquis Documented By: Acosta Bo MD 2241 Signed By: <Electronically signed by Acosta Bo MD> 02/13/252248 [facility] Work Phone: 1([phone]) 530-128705-19-2025 [place] [id number] Hospitalist Progress Note Signed Patient: Daniela Raymundo MR#: [id number] : 1945 Acct:[id number] Age/Sex: 80 / F Adm Date: 5 Loc: 4 Room: [id number] Type: ADM IN Attending Dr: Acosta Bo MD Copies to: ~ Date of Service: 02/13/2025 Subjective Subjective Narrative: Patient seen and assessed earlier this evening after cardiac catheterization. She is somewhat perseverating about having to get her PPI. She is not confused,but is somewhat angry, and thinks she did not receive it on time when she already, earlier in the night. Exam Physical Exam Vital Signs: Temp Pulse Resp BP Pulse Ox O2 Del Method O2 Flow Rate 98.4 F 114 H 18 111/64 100 Nasal Cannula 2 02/13/25 20:08 02/13/25 20:08 02/13/25 20:08 02/13/25 20:08 02/13/25 20:08 02/13/25 20:08 02/13/25 20:08 Narrative: GEN: Resting in bed. Does seem to have increased work of breathing. Neck: No JVD. No thyromegaly. No lymphadenopathy. Lungs: Now with mild wheezing while sitting upright in bed. Has a pulse oximetry of 95% on room airfor me. Heart: Irregularly irregular. On the telemetry right now her A-fib is running at 55 bpm. To auscultation I hear no murmurs, rubs, or gallops. Abdomen: Soft, normal bowel sounds, no rigidity, guarding, or acute peritoneal signs. Extremities: No swelling or cords in the calves bilaterally, no edema in the ankles bilaterally. Neuro: Does have a strong tremor at baseline. This tremor was not present when I walked in the roomand she was sleeping but as soon as I woke her up she beganhaving the tremor. Objective Lab Results 02/13/25 04:47 02/13/25 04:06 Meds Allergies and Active Meds Allergies ethyl alcohol Allergy (Severe, Verified 02/11/25 18:24) Hives Tforbag-ARR-BwD Reductase Inhibitor Allergy (Intermediate, Verified 02/11/25 13:23) Hives ezetimibe (From Zetia) Allergy (Verified 02/11/25 13:23) Muscle Pain Active Meds: Active Medications Generic Name Dose Route Start Last Admin Trade Name Freq PRN Reason Stop Dose Admin Acetaminophen 650 mg 02/11/25 15:55 Acetaminophen 325 Mg Tablet PO 02/11/26 15:54 Q6HR PRN Pain Scale 1 - 3 or fever Albuterol 2 puff 02/13/25 05:11 02/13/25 17:28 Albuterol Hfa 60 Puff/8 Gram Inhaler INHALATION 02/13/26 05:10 2 puff Q6H PRN Administration Shortness Of Breath Or Wheezing Alprazolam 0.5 mg 02/11/25 15:58 02/12/25 05:12 Alprazolam 0.5 Mg Tablet PO 08/10/25 15:57 0.5 mg BID PRN Administration Anxiety Alprazolam 1 mg 02/11/25 20:16 02/13/25 20:42 Alprazolam 0.5 Mg Tablet PO 08/10/25 20:15 1 mg QHS PRN Administration Anxiety Apixaban 2.5 mg 02/13/25 21:00 02/13/25 20:41 Apixaban 2.5 Mg Tablet PO 02/13/26 20:59 2.5 mg BID DUKE Administration Aspirin 81 mg 02/14/25 09:00 Aspirin 81 Mg Tab.Chew PO 02/14/26 08:59 DAILY DUKE Atropine Sulfate 1 mg 02/13/25 10:26 Atropine Sulfate 1 Mg/10 Ml Syringe IV-PUSH ONCE PRN Symptomatic Bradycardia Clopidogrel Bisulfate 75 mg 02/14/25 09:00 Clopidogrel Bisulfate 75 Mg Tablet PO 02/14/26 08:59 DAILY DUKE Furosemide 40 mg 02/12/25 16:00 02/13/25 16:56 Furosemide 40 Mg/4 Ml Vial IV-PUSH 02/12/26 15:59 40 mg BID@0800,1600 DUKE Administration Sodium Chloride 250 mls @ 999 mls/hr 02/13/25 10:26 0.9% Sodium Chloride 250 Ml IV 02/13/26 10:25 PRN PRN Hypotension Levothyroxine Sodium 75 mcg 02/12/25 05:15 02/13/25 06:01 Levothyroxine 75 Mcg Tablet PO 02/12/26 05:14 75 mcg DAILY.0630 DUKE Administration Linagliptin 5 mg 02/12/25 09:00 02/13/25 09:39 Linagliptin 5 Mg Tablet PO 02/12/26 08:59 Not Given DAILY DUKE Miscellaneous Information 1 each 02/11/25 13:18 Consult To Pharmacy MISCELLANE 02/11/26 13:17 .PHACONSULT PRN ZZ.Pharmacy Consult Protocol Nitroglycerin 0.4 mg 02/11/25 13:15 02/11/25 13:21 Nitroglycerin 0.4 Mg Tab.Subl SUBLINGUAL 02/11/26 13:14 0.4 mg Q5M PRN Administration Chest Pain Nitroglycerin 1 each 02/12/25 09:00 02/13/25 06:01 Nitroglycerin Patch 0.4 Mg/Hr 1 Each Patch.Td24 TRANSDERML 02/12/26 08:59 1each DAILY@0600 DUKE Administration Pom (Potassium 99 Mg 99 mg 02/12/25 09:00 02/13/25 08:06 Tablet) PO 02/12/26 08:59 Not Given DAILY DUKE Pom (Pitavastatin 2 mg 02/12/25 09:00 02/13/25 08:06 Calcium [Livalo] 2 PO 02/12/26 08:59 Not Given Mg Tablet) DAILY DUKE Pantoprazole Sodium 40 mg 02/11/25 21:00 02/13/25 20:41 Pantoprazole 40 Mg Tablet. PO 02/11/26 20:59 40 mg BID DUKE Administration Potassium Chloride 40 meq 02/12/25 08:38 Potassium Chloride Er 20 Meq Tab.Er.Prt PO STAT PRN Hypokalemia Prochlorperazine Edisylate 5 mg 02/12/25 14:25 Prochlorperazine Edisylate 10 Mg/2 Ml Vial IV-PUSH 02/12/26 14:24 Q6H PRN Nausea OR Vomiting Sodium Chloride 0 ml 02/11/25 13:04 02/13/25 16:57 Sodium Chloride 0.9 % 10 Ml Syringe IV-PUSH 02/11/26 13:03 10 ml PRN PRN Administration Flush Sodium Chloride 0 ml 02/12/25 08:38 Sodium Chloride 0.9 % 10 Ml Syringe IV-PUSH 02/12/26 08:37 PRN PRN Flush Sotalol HCl 80 mg 02/12/25 09:00 02/13/25 20:41 Sotalol 80 Mg Tablet PO 02/12/26 08:59 80 mg BID DUKE Administration A&P - Hospitalist Assessment/Plan (1) Atrial fibrillation with RVR: (2) Coronary artery disease: (3) Tremor: (4) Angina at rest: Plan Assessment: NSTEMI Atrial fibrillation with rapid ventricular response. Coronary artery disease with history of three-vessel CABG back in 2010. Intolerance to statins and Zetia. Plan: -Appreciate cardiology assessment and cardiac catheterization, status post stent x 1 -Cardiac medications per cardiology team -Continuous telemetry monitoring. -A-fib management per cardiology as well - Continue to monitor on progressive care unit Hypothyroidism?levothyroxine Anxiety disorder NOS -Continue home Xanax for now, is a poor long-term anxiety medication for patient at this age CODE STATUS: Full code DVT prophylaxis: Eliquis Documented By: Acosta Bo MD 5 2241 Signed By: 02/13/25 224 [facility]05-19-2025 [place] [address] Cardiac Catheterization Note Signed Patient: Daniela Raymundo MR#: [id number] : 1945 Acct:[id number] Age/Sex: 80 / F Adm Date: 5 Loc: Room: [address] [place] [address] Type: ADM IN Attending Dr: Acosta Bo MD Copies to: MD Sonja Fontenot MD, DO~ Cardiac Catheterization (Left) DATE/PROVIDER 02/13/2025 Jeff Sol DO INDICATION 1. Acute non-ST elevation GA 2. Paroxysmal atrial fibrillation?A-fib with RVR upon presentation 3. History of Haji's esophagus?undergoing cryotherapy 4. Renal insufficiency 5. Hyperlipidemia 6. Essential tremor 7. ASHD with remote three-vessel CABG PRE PROCEDURE Frailty Scale: Vulnerable ASA Classification: 5 Mallampati Score: Class I POST PROCEDURE Cardiology Post-Op Diagnosis: NSTEMI (Subtotal occlusion left main-ostial circumflex (infarct vessel); occluded S-OM; patent S-RCA; patent L-LAD) PROCEDURE PROCEDURE MEDICATIONS: Conscious sedation with Versed and fentanyl; Angiomax bolus and infusion, intravenous metoprolol, ticagrelor loading dose Approach: Femoral - Rt 1. Left heart catheterization with grafts 2. Selective left coronary angiography with interpretation 3. PCI protected left main?ostial circumflex with 2.75 x 18 mm Skypoint stent PROCEDURE DETAILS Utilizing the right femoral approach with a single arterial puncture technique a4 Vincentian sheath wasinserted the right femoral artery over guidewire without anycomplications next preformed JL4, AR mod, SUE, and angled pigtail catheters wereutilized to selectively engage and image left and right coronary arteries, vein grafts x 2, SUE, and the left ventricle all with imaging, interpretation, pressure measurements, coronary, vein graft, mammary graft angiography, and leftventricular pressure measurements?no left ventriculography, Next, the 4 Vincentian sheath was exchanged for 6 Vincentian sheath, 6 Vincentian JL 3.5 guide catheter was advanced to the left coronary, selective left coronary angiography with interpretation followed by PCI left main through ostial circumflex was performed with eventual delivery of 2.75 x 18 mm Skypoint stent and postdilated with 2.75 x 8 mm noncompliant Euphora balloon at high pressures HEMOSTASIS XO seal SUMMARY OF FINDINGS CCS Classification: CCS [id number] at rest or w/ any activity Dominance: Right Left Main %: 99 Left Main: Eccentric, subtotal occlusion left main trunk going into the circumflex LAD-Prox % Stenosis: 99 LAD-Prox: LAD has 99% diffuse ostial stenosis and then is occluded in the proximal/mid segment the remainder of the mid LAD is perfused by an intact mammary graft LAD- Mid- % Stenosis: 10 LAD- Mid: Mid LAD receives an intact mammary graft LAD-Distal- % Stenosis: 10 Diag 1st - % Stenosis: 25 CIRC- Prox % Stenosis: 99 CIRC- Prox: Ostial circumflex has subtotal 99% lesion emanating from the diseased left main,subtending and obtuse marginal branch and smaller AV continuation branch with AMARI-3 flow OM-1 -% Stenosis: 20 OM-1: single obtuse marginal branch observed in the circumflex distribution, previously bypassed, no significant disease however jeopardized by the above left main?ostial circumflex disease (infarct vessel) RCA -% Stenosis: 50 RCA: RCA has mild 30 to 50% mid vessel disease providing moderate-sized PLV and PDA branches distally; the PLV branch receives a vein graft PDA-RT -% Stenosis: 0 PLV-RT -% Stenosis: 0 PLV-RT: PLV branch is bypassed by a vein graft which is widely patent has no significantdisease LEFT VENTRICLE LVEDP is 20 mmHg, no left ventriculography performed due to renal insufficiency VALVE-AORTIC Aortic Valve Disease: No VALVE-MITRAL Mitral Valve Disease: No GRAFTS 1st graft: GRAFT(S): PATEL?LAD: Widely patent 2nd graft: GRAFT(S): SVG?PLV branch of RCA: Widely patent 3rd graft: GRAFT(S): SVG?OM: Occluded IMPRESSION 1. Severe three-vessel ASHD 2. Subtotal occlusion left main?ostial/proximal circumflex (infarct vessel) 3. Patent PATEL?LAD and S?RCA 4. Occluded S?OM RECOMMENDATIONS Urgent PCI left main?ostial circumflex Documented By: Jeff Sol DO 02/13/25 1033 Signed By: 02/13/25 1044 [facility]05-19-2025 [place] [address] Cardiology PCI Note Signed Patient: Daniela Raymundo MR#: [id number] : 1945 Acct:[id number] Age/Sex: 80 / F Adm Date: 5 Loc: Room: [address] [place] [address] Type: ADM IN Attending Dr: Acosta Bo MD Copies to: MD Sonja Fontenot MD, DO~ Cardiac PCI Note DATE/PROVIDER 02/13/2025 Jeff Sol DO INDICATION 1. Acute high risk non-ST elevation GA 2. ASHD with remote three-vessel CABG 3. Occluded vein graft to circumflex with residual subtotal occlusion left maintrunk?ostial circumflex 4. Paroxysmal atrial fibrillation PRE PROCEDURE Cardiology Pre-Op Diagnosis: NSTEMI Frailty Scale: Vulnerable ASA: 5 Mallampati Score: Class I POST PROCEDURE Cardiology Post-Op Diagnosis: NSTEMI (Successful PCI left main trunk-ostial circumflex with 2.75 x 18 mm ramon point stent) FINDINGS 1st vessel: Lesion Vessel Segment: Left main trunk-ostial circumflex Culprit Lesion?: Yes Pre-stenosis %: 99 Post stenosis %: 0 Lesion length (mm): 12 Bifurcation lesion?: No Pre AMARI flow: III Post AMARI flow: III Lesion risk: High Chronic total occlusion?: No Thrombus present?: Yes Lesion complication: None Drug Eluting Stent: 2.75 x 18 mm Skypoint Narrative: See cardiac catheterization narrative for complete dissertation on left coronaryangiography with interpretation, guide catheter selection, pharmacology, equipment Summary: In the ostial left main through the ostium of the circumflex there was a subtotal 99% eccentric, partially thrombotic lesion with AMARI-3 flow, subtending a single obtuse marginal branch thatwas medium in size and previously bypassed. Reference vessel was 2.5 to 2.7 mm, length was 12 to 15mm; the ACC/AHA criteria for lesion is type C. Utilizing a JL 3.5 guide catheter 0.014 universal wire is navigated across the lesion, predilated with 2 x 15 mm Euphora balloon and 2 x 12 mm noncompliant trek balloons up to 18 alana with the assistance of GuideLiner support catheter. Balloons were individually removed, eventually a 2.75 x 18 mm Skypoint stent was delivered 18 alana with a residual stenosis of 0 to 10%; and postdilated with a 2.75 x 8 mm noncompliant Euphora balloon deployed x 3 inflations at 18 alana with a residual stenosis of 0%AMARI-3 flow and no complications. Documented By: Jeff Sol DO 02/13/25 1028 Signed By: 02/13/25 1033 [facility]05-18-2025 Progress note Author Marcos Neves [facility] Note Date/Time February 12, 2025 2:05p [facility] ENTER [address] [place] [address] Hospitalist Progress Note Signed Patient: Daniela Raymundo MR#: [id number] : 1945 Acct:[id number] Age/Sex: 80 / F Adm Date: 5 Loc: Room: [address] [place] [address] Type: ADM IN Attending Dr: Marcos Neves DO Copies to: ~ Date of Service: 02/12/2025 Subjective Subjective Narrative: After her admission yesterday afternoon and into the nighttime the patient worsened. She complained of some shortness of breath. Cardiology with Dr. Clarissa Potts saw her this morning she was having some wheezing. Her troponin has risen from 76 yesterday up to 1779. Her atrial fibrillation came under excellent rate control. She still is in atrial fibrillation but the Cardizem drip is off. Heparin infusion continues. The patient noticed that she got very short of breath today when the nurses had to get her up and ambulate to the toilet. The put on some oxygen when she got back to bed. Cardiology has ordered IV Lasix to start this afternoon. Right now she does not have any chest pain. She does notice that the shortness of breath. She has no cough. Exam Physical Exam Vital Signs: Temp Pulse Resp BP Pulse Ox O2 Del Method O2 Flow Rate 98.1 F 62 20 117/82 98 Room Air 4 02/12/25 07:58 02/12/25 13:00 02/12/25 13:00 02/12/25 13:00 02/12/25 13:00 02/12/25 13:00 02/12/25 13:00 Narrative: GEN: Resting in bed. Does seem to have increased work of breathing. Neck: No JVD. No thyromegaly. No lymphadenopathy. Lungs: Now with mild wheezing while sitting upright in bed. Has a pulse oximetry of 95% on room air for me. Heart: Irregularly irregular. On the telemetry right now her A-fib is running at 55 bpm. To auscultation I hear no murmurs, rubs, or gallops. Abdomen: Soft, normal bowel sounds, no rigidity, guarding, or acute peritoneal signs. Extremities: No swelling or cords in the calves bilaterally, no edema in the ankles bilaterally. Neuro: Does have a strong tremor at baseline. This tremor was not present when I walked in the room and she was sleeping but as soon as I woke her up she beganhaving the tremor. Objective Lab Results 02/12/25 04:09 02/12/25 04:09 Meds Allergies and Active Meds Allergies ethyl alcohol Allergy (Severe, Verified 02/11/25 18:24) Hives Xeipqpi-DWY-AgU Reductase Inhibitor Allergy (Intermediate, Verified 02/11/25 13:23) Hives ezetimibe (From Zetia) Allergy (Verified 02/11/25 13:23) Muscle Pain Active Meds: Active Medications Generic Name Dose Route Start Last Admin Trade Name Freq PRN Reason Stop Dose Admin Acetaminophen 650 mg 02/11/25 15:55 Acetaminophen 325 Mg Tablet PO 02/11/26 15:54 Q6HR PRN Pain Scale 1 - 3 or fever Alprazolam 0.5 mg 02/11/25 15:58 02/12/25 05:12 Alprazolam 0.5 Mg Tablet PO 08/10/25 15:57 0.5 mg BID PRN Administration Anxiety Alprazolam 1 mg 02/11/25 20:16 02/11/25 22:15 Alprazolam 0.5 Mg Tablet PO 08/10/25 20:15 1 mg QHS PRN Administration Anxiety Aspirin 81 mg 02/13/25 09:00 Aspirin 81 Mg Tablet.Dr PO 02/13/26 08:59 MoWeFr@0900 [facility] Furosemide 40 mg 02/12/25 16:00 Furosemide 40 Mg/4 Ml Vial IV-PUSH 02/12/26 15:59 BID@0800,1600 [facility] Heparin Sodium (Porcine) 1,600 unit 02/11/25 13:18 Heparin *Protocol Bolus* 5,000 Unit/Ml Vial 25 unit/kg (1600 unit) 02/13/25 02:00 IV-PUSH PROTOCOL PRN Anti-Xa < 0.1 or aPTT < 40 Heparin Sodium/Sodium Chloride 25,000 unit in 250 mls @ 7.908 mls/hr 02/11/25 13:30 02/12/25 12:14 Heparin IV 02/13/25 06:00 11 unit/kg/hr .Q24H [facility] 7.25 mls/hr Titration Protocol 12 UNIT/KG/HR Dextrose/Sodium Chloride 1,000 mls @ 100 mls/hr 02/13/25 08:45 5 % Dextrose-0.45 % Nacl IV 02/13/25 14:44 .Q10H [facility] Levothyroxine Sodium 75 mcg 02/12/25 05:15 02/12/25 05:12 Levothyroxine 75 Mcg Tablet PO 02/12/26 05:14 75 mcg DAILY.0630 [facility] Administration Linagliptin 5 mg 02/12/25 09:00 02/12/25 08:28 Linagliptin 5 Mg Tablet PO 02/12/26 08:59 5 mg DAILY [facility] Administration Miscellaneous Information 1 each 02/11/25 13:18 Consult To Pharmacy [facility] 02/11/26 13:17 .PHACONSULT PRN SALLY.Pharmacy Consult Protocol Miscellaneous Information 1 each 02/12/25 08:38 Consult To Pharmacy [facility] 02/12/26 08:37 .PHACONSULT PRN ZZ.Pharmacy Consult Protocol Nitroglycerin 0.4 mg 02/11/25 13:15 02/11/25 13:21 Nitroglycerin 0.4 Mg Tab.Subl SUBLINGUAL 02/11/26 13:14 0.4 mg Q5M PRN Administration Chest Pain Nitroglycerin 1 each 02/12/25 09:00 02/12/25 08:41 Nitroglycerin Patch 0.4 Mg/Hr 1 Each Patch.Td24 TRANSDERML 02/12/26 08:59 1each DAILY@0600 [facility] Administration Pom (Potassium 99 Mg 99 mg 02/12/25 09:00 02/12/25 08:31 Tablet) PO 02/12/26 08:59 Not Given DAILY [facility] Pom (Pitavastatin 2 mg 02/12/25 09:00 02/12/25 08:31 Calcium [Livalo] 2 PO 02/12/26 08:59 Not Given Mg Tablet) DAILY [facility] Pantoprazole Sodium 40 mg 02/11/25 21:00 02/12/25 08:28 Pantoprazole 40 Mg Tablet. PO 02/11/26 20:59 40 mg BID DUEK Administration Potassium Chloride 40 meq 02/12/25 08:38 Potassium Chloride Er 20 Meq Tab.Er.Prt PO STAT PRN Hypokalemia Sodium Chloride 0 ml 02/11/25 13:04 02/11/25 13:34 Sodium Chloride 0.9 % 10 Ml Syringe IV-PUSH 02/11/26 13:03 10 ml PRN PRN Administration Flush Sodium Chloride 0 ml 02/12/25 08:38 Sodium Chloride 0.9 % 10 Ml Syringe IV-PUSH 02/12/26 08:37 PRN PRN Flush Sotalol HCl 80 mg 02/12/25 09:00 02/12/25 10:21 Sotalol 80 Mg Tablet PO 02/12/26 08:59 80 mg BID [facility] Administration A&P - Hospitalist Assessment/Plan (1) Atrial fibrillation with RVR: (2) Coronary artery disease: (3) Tremor: (4) Angina at rest: Plan Assessment: Chest pain. Atrial fibrillation with rapid ventricular response. Coronary artery disease with history of three-vessel CABG back in 2010. Intolerance to statins and Zetia. Plan: Hospital admission, inpatient status. Continue Cardizem drip for rate control of atrial fibrillation. Consult to cardiology. Sees Dr. Sol. Continuous telemetry monitoring. Cycle additional cardiac enzymes. Hold Eliquis because cardiology has recommended a Cardizem and heparin infusion. Documented By: Marcos Neves DO 1403 Signed By: <Electronically signed by Marcos Neves DO> 02/12/25 1405 [facility] Work Phone: [phone]) 188-327805-18-2025 [place] [id number] Hospitalist Progress Note Signed Patient: Daniela Raymundo MR#: [id number] : 1945 Acct:[id number] Age/Sex: 80 / F Adm Date: 5 Loc: Room: [address] [place] [address] Type: ADM IN Attending Dr: Marcos Neves DO Copies to: ~ Date of Service: 02/12/2025 Subjective Subjective Narrative: After her admission yesterday afternoon and into the nighttime the patient worsened. She complainedof some shortness of breath. Cardiology with Dr. Clarissa Potts saw her this morning she was having some wheezing. Her troponin has risen from 76 yesterday up to 1779. Her atrial fibrillation came under excellent rate control. She still is in atrial fibrillation but the Cardizem drip is off. Heparin infusion continues. The patient noticed that she got very short of breath today when the nurses had to get her up and ambulate to the toilet. The put on some oxygen when she got back to bed. Cardiology has ordered IV Lasix to start this afternoon. Right now she does not have any chest pain. She does notice that the shortness of breath. She has no cough. Exam Physical Exam Vital Signs: Temp Pulse Resp BP Pulse Ox O2 Del Method O2 Flow Rate 98.1 F 62 20 117/82 98 Room Air 4 02/12/25 07:58 02/12/25 13:00 02/12/25 13:00 02/12/25 13:00 02/12/25 13:00 02/12/25 13:00 02/12/25 13:00 Narrative: GEN: Resting in bed. Does seem to have increased work of breathing. Neck: No JVD. No thyromegaly. No lymphadenopathy. Lungs: Now with mild wheezing while sitting upright in bed. Has a pulse oximetry of 95% on room airfor me. Heart: Irregularly irregular. On the telemetry right now her A-fib is running at 55 bpm. To auscultation I hear no murmurs, rubs, or gallops. Abdomen: Soft, normal bowel sounds, no rigidity, guarding, or acute peritoneal signs. Extremities: No swelling or cords in the calves bilaterally, no edema in the ankles bilaterally. Neuro: Does have a strong tremor at baseline. This tremor was not present when I walked in the roomand she was sleeping but as soon as I woke her up she beganhaving the tremor. Objective Lab Results 02/12/25 04:09 02/12/25 04:09 Meds Allergies and Active Meds Allergies ethyl alcohol Allergy (Severe, Verified 02/11/25 18:24) Hives Tswsxlj-VTH-CkU Reductase Inhibitor Allergy (Intermediate, Verified 02/11/25 13:23) Hives ezetimibe (From Zetia) Allergy (Verified 02/11/25 13:23) Muscle Pain Active Meds: Active Medications Generic Name Dose Route Start Last Admin Trade Name Freq PRN Reason Stop Dose Admin Acetaminophen 650 mg 02/11/25 15:55 Acetaminophen 325 Mg Tablet PO 02/11/26 15:54 Q6HR PRN Pain Scale 1 - 3 or fever Alprazolam 0.5 mg 02/11/25 15:58 02/12/25 05:12 Alprazolam 0.5 Mg Tablet PO 08/10/25 15:57 0.5 mg BID PRN Administration Anxiety Alprazolam 1 mg 02/11/25 20:16 02/11/25 22:15 Alprazolam 0.5 Mg Tablet PO 08/10/25 20:15 1 mg QHS PRN Administration Anxiety Aspirin 81 mg 02/13/25 09:00 Aspirin 81 Mg Tablet. PO 02/13/26 08:59 MoWeFr@0900 [facility] Furosemide 40 mg 02/12/25 16:00 Furosemide 40 Mg/4 Ml Vial IV-PUSH 02/12/26 15:59 BID@0800,1600 [facility] Heparin Sodium (Porcine) 1,600 unit 02/11/25 13:18 Heparin *Protocol Bolus* 5,000 Unit/Ml Vial 25 unit/kg (1600 unit) 02/13/25 02:00 IV-PUSH PROTOCOL PRN Anti-Xa < 0.1 or aPTT < 40 Heparin Sodium/Sodium Chloride 25,000 unit in 250 mls @ 7.908 mls/hr 02/11/25 13:30 02/12/25 12:14 Heparin IV 02/13/25 06:00 11 unit/kg/hr .Q24H [facility] 7.25 mls/hr Titration Protocol 12 UNIT/KG/HR Dextrose/Sodium Chloride 1,000 mls @ 100 mls/hr 02/13/25 08:45 5 % Dextrose-0.45 % Nacl IV 02/13/25 14:44 .Q10H [facility] Levothyroxine Sodium 75 mcg 02/12/25 05:15 02/12/25 05:12 Levothyroxine 75 Mcg Tablet PO 02/12/26 05:14 75 mcg DAILY.0630 [facility] Administration Linagliptin 5 mg 02/12/25 09:00 02/12/25 08:28 Linagliptin 5 Mg Tablet PO 02/12/26 08:59 5 mg DAILY [facility] Administration Miscellaneous Information 1 each 02/11/25 13:18 Consult To Pharm[place] [facility] 02/11/26 13:17 .PHACONSULT PRN SALLY.Pharmacy Consult Protocol Miscellaneous Information 1 each 02/12/25 08:38 Consult To Pharmacy [facility] 02/12/26 08:37 .PHACONSULT PRN SALLY.Pharmacy Consult Protocol Nitroglycerin 0.4 mg 02/11/25 13:15 02/11/25 13:21 Nitroglycerin 0.4 Mg Tab.Subl SUBLINGUAL 02/11/26 13:14 0.4 mg Q5M PRN Administration Chest Pain Nitroglycerin 1 each 02/12/25 09:00 02/12/25 08:41 Nitroglycerin Patch 0.4 Mg/Hr 1 Each Patch.Td24 TRANSDERML 02/12/26 08:59 1each DAILY@0600 [facility] Administration Pom (Potassium 99 Mg 99 mg 02/12/25 09:00 02/12/25 08:31 Tablet) PO 02/12/26 08:59 Not Given DAILY [facility] Pom (Pitavastatin 2 mg 02/12/25 09:00 02/12/25 08:31 Calcium [Livalo] 2 PO 02/12/26 08:59 Not Given Mg Tablet) DAILY [facility] Pantoprazole Sodium 40 mg 02/11/25 21:00 02/12/25 08:28 Pantoprazole 40 Mg Tablet.Dr PO 02/11/26 20:59 40 mg BID [facility] Administration Potassium Chloride 40 meq 02/12/25 08:38 Potassium Chloride Er 20 Meq Tab.Er.Prt PO STAT PRN Hypokalemia Sodium Chloride 0 ml 02/11/25 13:04 02/11/25 13:34 Sodium Chloride 0.9 % 10 Ml Syringe IV-PUSH 02/11/26 13:03 10 ml PRN PRN Administration Flush Sodium Chloride 0 ml 02/12/25 08:38 Sodium Chloride 0.9 % 10 Ml Syringe IV-PUSH 02/12/26 08:37 PRN PRN Flush Sotalol HCl 80 mg 02/12/25 09:00 02/12/25 10:21 Sotalol 80 Mg Tablet PO 02/12/26 08:59 80 mg BID [facility] Administration A&P - Hospitalist Assessment/Plan (1) Atrial fibrillation with RVR: (2) Coronary artery disease: (3) Tremor: (4) Angina at rest: Plan Assessment: Chest pain. Atrial fibrillation with rapid ventricular response. Coronary artery disease with history of three-vessel CABG back in 2010. Intolerance to statins and Zetia. Plan: Hospital admission, inpatient status. Continue Cardizem drip for rate control of atrial fibrillation. Consult to cardiology. Sees Dr. Sol. Continuous telemetry monitoring. Cycle additional cardiac enzymes. Hold Eliquis because cardiology has recommended a Cardizem and heparin infusion. Documented By: Marcos Neves DO 1402 Signed By: 02/12/25 1405 [facility]05-18-2025 Consult note Author Eliezer Potts [facility] Note Date/Time February 12, 2025 8:37a m [facility] [address] [place] [address] Cardiology Consult Note Signed Patient: Daniela Raymundo MR#: [id number] : 1945 Acct:[id number] Age/Sex: 80 / F Adm Date: 5 Loc: 3T Room: 5I1053-2 Type: ADM IN Attending Dr: Marcos Neves DO Copies to: Eliezer Potts MD, [facility] DO Sonja Lozano MD~ Cardiology HPI History of Present Illness Consult Date: 02/12/25 Reason for Consult: Atrial fibrillation HPI: Ms. Raymundo is a 80 year old female who is being seen at the request of the hospitalist for evaluation of atrial fibrillation, dyspnea and elevated troponin. Patient follows with Dr. Sol with a known history of coronary bypass surgery done in 2009 at [facility] with no events noted since. Last nuclear stress test in 2022 demonstrated inferolateral infarction with no ischemia and with normal ejection fraction. The patient for the last 7 to 10 days has been experiencing symptoms of chest heaviness, arm pain and neck discomfort that seems to be constant. She did not have nitroglycerin to use. She called the office and apparently it was decided to get 48-hour Holter monitor which was returned this past Thursday. It is not reported yet. The patient presented with dyspnea, chest pain and palpitation and was found to be in atrial flutter with variable AV conduction, she was started on Cardizem drip, chest x-ray was unremarkable. Her initial troponin was 76 pg/mL and now has reached a value of 1779 pg/mL. Her symptoms of chest pain have lessened but has very noticeable dyspnea during casual conversation. She has actually audible wheezing as well. Her BNP was elevated at 579 pg/mL. There is no anemia or significant renal impairment. No indication for pneumoniaor active infection. Patient has been chronically anticoagulated with Eliquis for paroxysmal atrial fibrillation but no antiarrhythmic therapy. She has longstanding diabetes, hyperlipidemia and hypertension. She has no previous stroke but reports history of TIA. Has had no bleeding complications on anticoagulation. Has intolerance to a number of statins and presently on Pitavastatin which seems to be quite expensive, LDL cholesterol though is on target. 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 She lives with her . Denies any hemoptysis, melena or hematuria. Has no orthopnea PND or lower extremity edema but recently has developed progressive dyspnea. There hasbeen no recent echocardiogram that I could find. Patient has very advanced caseof essential tremor Review of Systems Review of Systems Review of systems: 10 point review of system was unremarkable and the rest was covered above in HPI [facility] Medical History (Updated 02/12/25 @ 08:35 by Eliezer Potts MD) Tremor Cholecystectomy planned Problem List clean-up per request of Phys. EHR Cmte GERD (gastroesophageal reflux disease) Problem List clean-up per request of Phys. EHR Cmte Diabetes Problem List clean-up per request of Phys. EHR Cmte Afib Problem List clean-up per request of Phys. EHR Cmte Anxiety Problem List clean-up per request of Phys. EHR Cmte Surgical History (Updated 02/12/25 @ 08:35 by Eliezer Potts MD) S/P triple vessel bypass Problem List clean-up per request of Phys. EHR Cmte Hx of appendectomy Problem List clean-up per request of Phys. EHR Cmte H/O: hysterectomy Problem List clean-up per request of Phys. [facility]HR [facility] Family History Father Cancer Mother Cancer Social History Smoking Status: Never smoker Tobacco Type: cigarettes Substance Use Type: None Substance Abuse Comment: Did smoke cigarettes but quit at the age of 33 to 38. Meds Medications and Allergies Allergies ethyl alcohol Allergy (Severe, Verified 02/11/25 18:24) Hives Ewutouj-ZNZ-HyW Reductase Inhibitor Allergy (Intermediate, Verified 02/11/25 13:23) Hives ezetimibe (From Zetia) Allergy (Verified 02/11/25 13:23) Muscle Pain Home Medications alprazolam 0.5 mg tablet 0.5 mg PO DAILY PRN Anxiety 11/25/21 [History Confirmed 02/11/25] apixaban 5 mg tablet (Eliquis) 5 mg PO BID 11/25/21 [History Confirmed 02/11/25] aspirin 81 mg capsule 81 mg PO .mwf 11/25/21 [History Confirmed 02/11/25] esomeprazole magnesium 40 mg capsule,delayed release 40 mg PO BID 11/25/21 [History Confirmed 02/11/25] furosemide 40 mg tablet (Lasix) 40 mg PO DAILY 11/25/21 [History Confirmed 02/11/25] levothyroxine 75 mcg tablet 75 mcg PO DAILY 11/25/21 [History Confirmed 02/11/25] losartan 25 mg tablet 25 mg PO DAILY 11/25/21 [History Confirmed 02/11/25] pitavastatin calcium 2 mg tablet (Livalo) 2 mg PO DAILY 11/25/21 [History Confirmed 02/11/25] potassium 99 mg tablet 99 mg PO DAILY 11/25/21 [History Confirmed 02/11/25] sitagliptin phosphate 100 mg tablet (Januvia) 100 mg PO DAILY 11/25/21 [History Confirmed 02/11/25] levocetirizine 5 mg tablet 5 mg PO DAILY 12/05/24 [History Confirmed 02/11/25] Exam Physical Exam Vital Signs: Temp Pulse Resp BP Pulse Ox O2 Del Method O2 Flow Rate 98.1 F 116 H 20 122/70 95 Nasal Cannula 2 02/12/25 07:58 02/12/25 07:58 02/12/25 07:58 02/12/25 07:58 02/12/25 07:58 02/12/25 07:58 02/12/25 07:58 Const General: cooperative, frail appearing and other (Short of breath during casual conversation) Nutritional Appearance: average body habitus Orientation: alert, awake and oriented x3 HEENT Head: normal to inspection, normocephalic and atraumatic Ears: hearing grossly normal bilaterally Nose: external nose normal Face and sinus: normal facial exam Eyes Conjunctivae: conjunctivae normal Pupils: PERRL Neck Neck: trachea midline and supple Neck mass: No Thyroid: thyroid normal Carotids: normal carotid upstroke Resp Effort & Inspection: audible wheezes Auscultation: rales and wheezes Cardio Jugular venous pressure: no JVD Rate: tachycardic Rhythm: abnormal rhythm irregularly irregular Heart Sounds: S1 normal and S2 normal GI Inspection: normal to inspection Palpation: soft and no hepatosplenomegaly Auscultation: normal bowel sounds Extrem General: no clubbing, cyanosis or edema Results - Cardiology Labs 02/12/25 04:09 02/12/25 04:09 Lab results: Cardiac Enzymes 02/11/25 Range/Units 13:14 AST 16 (13-39) U/L Total Creatine Kinase 49 (30-223) U/L B-Natriuretic Peptide 579.0 H (5-100) pg/mL Lipids 02/12/25 Range/Units 04:09 Triglycerides 92 (0-149) mg/dL Cholesterol 99 L (140-200) mg/dL HDL Cholesterol 42 (23-92) mg/dL Cholesterol/HDL Ratio 2.4 (<5.0) CBC 02/11/25 02/12/25 Range/Units 13:14 04:09 RBC 4.33 3.99 (3.60-5.00) x10E6/uL Hgb 11.5 L 10.7 L (11.8-15.4) g/dL Hct 36.1 33.0 L (34.0-46.4) % Plt Count 238 194 (150-450) x10E3/uL Neut # (Auto) 8.3 H 8.5 H (1.8-7.7) x10E3/uL Lymph # (Auto) 3.3 3.2 (1.00-4.8) x10E3/uL Beaver # (Auto) 0.7 0.9 H (0.0-0.8) x10E3/uL Eos # (Auto) 0.2 0.3 (0.0-0.45) x10E3/uL Baso # (Auto) 0.1 0.0 (0.0-0.2) x10E3/uL Comprehensive Metabolic Panel 02/11/25 02/12/25 Range/Units 13:14 04:09 Sodium 137 138 (136-145) mmol/L Potassium 4.0 3.7 (3.5-5.1) mmol/L Chloride 104 108 H (98-107) mmol/L Carbon Dioxide 27.1 23.8 (21.0-31.0) mmol/L BUN 26 H 21 (7-25) mg/dL Creatinine 1.50 H 1.27 H (0.60-1.20) mg/dL Glucose 163 H 135 H (70-100) mg/dL Calcium 9.7 9.2 (8.6-10.3) mg/dL Direct Bilirubin 0.00 L (0.03-0.18) mg/dL Indirect Bilirubin 0.4 mg/dL AST 16 (13-39) U/L ALT 11 (7-52) U/L Alkaline Phosphatase 66 (34-104) U/L Total Protein 7.1 (6.4-8.9) gm/dL Albumin 4.1 (3.5-5.7) gm/dL Intake and Output 02/11/25 02/12/25 02/12/25 23:59 07:59 15:59 Intake Total 100 / 600 460 / 460 Balance 100 / 600 460 / 460 Intake: IV 100 / 600 100 / 100 dilTIAZem 100 MG -*NaCl* 100 mg 100 / 100 100 / 100 In 100 ml @ 10 MG/HR 10 mls/hr IV .Q10H [facility] Rx#:[id number] Oral 360 / 360 Other: # Unmeasured Voids 2 Weight 65.9 kg 66 kg Date of Last Bowel Movement 02/11/25 Patient Weight 02/12/25 23:59 Weight 66 kg Lab 02/11/25 02/11/25 02/11/25 13:14 19:34 19:34 PT 15.0 H INR 1.3 APTT 33.0 126.7 H* Cancelled 02/12/25 04:09 PT INR APTT 42.3 H A&P - Cardiology (1) Acute coronary syndrome: Assessment/Problem Details: This may have been triggered by atrial fibrillation with RVR, underlying CAD progression cannot be excluded, last nuclear stress test 2022 revealed no ischemia Plan: Patient will benefit from invasive cardiac workup with cardiac catheterization to be scheduled tomorrow, meanwhile continue heparin and aspirin. Code(s): I24.9 - Acute ischemic heart disease, unspecified (2) History of coronary artery bypass graft x 3: Assessment/Problem Details: This was back in 2009 with no cardiac catheterization since. Plan: Continue secondary prevention measures, due to ACS invasive cardiac evaluation is recommended Code(s): Z95.1 - Presence of aortocoronary bypass graft (3) Essential tremor: Assessment/Problem Details: Chronic Plan: No specific therapy is available Code(s): G25.0 - Essential tremor (4) Type 2 diabetes mellitus: Plan: Continue home medications with Januvia Code(s): E11.9 - Type 2 diabetes mellitus without complications (5) Atrial fibrillation with RVR: Assessment/Problem Details: Patient asymptomatic, currently on Cardizem drip and heparin. Plan: Patient will benefit from antiarrhythmic therapy to prevent recurrent atrial fibrillation and hopefully to restore normal sinus rhythm. Will add sotalol 80 mg twice daily, daily EKG, cardioversion if necessary Code(s): I48.91 - Unspecified atrial fibrillation (6) Chronic kidney disease: Assessment/Problem Details: Stage III Plan: Avoid nephrotoxic medications Code(s): N18.9 - Chronic kidney disease, unspecified (7) Dyslipidemia: Assessment/Problem Details: Intolerant to most of the statins Plan: Patient seem to have difficulties affording Livalo, consider pravastatin Code(s): E78.5 - Hyperlipidemia, unspecified Documented By: Eliezer Potts MD, [facility] 5 0827 Signed By: <Electronically signed by [facility] Eliezer Potts> 02/12/[address] [facility] Work Phone: 1(598) 658-171605-18-2025 [place] [address] Cardiology Consult Note Signed Patient: Daniela Raymundo MR#: [id number] : 1945 Acct:[id number] Age/Sex: 80 / F Adm Date: 5 Loc: Room: [address] [place] [address] Type: ADM IN Attending Dr: Marcos Neves DO Copies to: Eliezer Potts MD, [facility] DO Sonja Lozano MD~ Cardiology HPI History of Present Illness Consult Date: 02/12/25 Reason for Consult: Atrial fibrillation HPI: Ms. Raymundo is a 80 year old female who is being seen at the request of the hospitalist for evaluation of atrial fibrillation, dyspnea and elevated troponin. Patient follows with Dr. Sol with a known history of coronary bypass surgery done in 2009 at [facility] with no events noted since. Last nuclear stress test in 2022 demonstrated inferolateral infarction with no ischemia and with normal ejection fraction. The patient for the last 7 to 10 days has been experiencing symptoms of chest heaviness, arm pain and neck discomfort that seems to be constant. She did not have nitroglycerin to use. She called the office and apparently it was decided to get 48-hour Holter monitor which was returned this past Thursday. It is not reported yet. The patient presented with dyspnea, chest pain and palpitation and was found to be in atrial flutter with variable AV conduction, she was started on Cardizem drip, chest x-ray was unremarkable. Her initial troponin was 76 pg/mL and now has reached a value of 1779 pg/mL. Her symptoms of chest pain have lessened but has very noticeable dyspnea during casual conversation. She has actually audible wheezing as well. Her BNP was elevated at 579 pg/mL. There is no anemia or significant renal impairment. No indication for pneumoniaor active infection. Patient has been chronically anticoagulated with Eliquis for paroxysmal atrial fibrillation but no antiarrhythmic therapy. She has longstanding diabetes, hyperlipidemia and hypertension. She has no previous stroke but reports history of TIA. Has had no bleeding complications on antico agulation. Has intolerance to a number of statins and presently on Pitavastatin which seems to be quite expensive, LDL cholesterol though is on target. 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 She lives with her . Denies any hemoptysis, melena or hematuria. Has no orthopnea PND or lower extremity edema but recently has developed progressive dyspnea. There hasbeen no recent echocardiogram that I could find. Patient has very advanced caseof essential tremor Review of Systems Review of Systems Review of systems: 10 point review of system was unremarkable and the rest was covered above in HPI [facility] Medical History (Updated 02/12/25 @ 08:35 by Eliezer Potts MD) Tremor Cholecystectomy planned Problem List clean-up per request of Phys. EHR Cmte GERD (gastroesophageal reflux disease) Problem List clean-up per request of Phys. EHR Cmte Diabetes Problem List clean-up per request of Phys. EHR Cmte Afib Problem List clean-up per request of Phys. EHR Cmte Anxiety Problem List clean-up per request of Phys. EHR [facility] Surgical History (Updated 02/12/25 @ 08:35 by Eliezer Potts MD) S/P triple vessel bypass Problem List clean-up per request of Phys. EHR Cmte Hx of appendectomy Problem List clean-up per request of Phys. EHR Cmte H/O: hysterectomy Problem List clean-up per request of Phys. EHR [facility] Family History Father Cancer Mother Cancer Social History Smoking Status: Never smoker Tobacco Type: cigarettes Substance Use Type: None Substance Abuse Comment: Did smoke cigarettes but quit at the age of 33 to 38. Meds Medications and Allergies Allergies ethyl alcohol Allergy (Severe, Verified 02/11/25 18:24) Hives Wawbcqs-DXC-PgC Reductase Inhibitor Allergy (Intermediate, Verified 02/11/25 13:23) Hives ezetimibe (From Zetia) Allergy (Verified 02/11/25 13:23) Muscle Pain Home Medications alprazolam 0.5 mg tablet 0.5 mg PO DAILY PRN Anxiety 11/25/21 [History Confirmed 02/11/25] apixaban 5 mg tablet (Eliquis) 5 mg PO BID 11/25/21 [History Confirmed 02/11/25] aspirin 81 mg capsule 81 mg PO .mwf 11/25/21 [History Confirmed 02/11/25] esomeprazole magnesium 40 mg capsule,delayed release 40 mg PO BID 11/25/21 [History Confirmed 02/11/25] furosemide 40 mg tablet (Lasix) 40 mg PO DAILY 11/25/21 [History Confirmed 02/11/25] levothyroxine 75 mcg tablet 75 mcg PO DAILY 11/25/21 [History Confirmed 02/11/25] losartan 25 mg tablet 25 mg PO DAILY 11/25/21 [History Confirmed 02/11/25] pitavastatin calcium 2 mg tablet (Livalo) 2 mg PO DAILY 11/25/21 [History Confirmed 02/11/25] potassium 99 mg tablet 99 mg PO DAILY 11/25/21 [History Confirmed 02/11/25] sitagliptin phosphate 100 mg tablet (Januvia) 100 mg PO DAILY 11/25/21 [History Confirmed 02/11/25] levocetirizine 5 mg tablet 5 mg PO DAILY 12/05/24 [History Confirmed 02/11/25] Exam Physical Exam Vital Signs: Temp Pulse Resp BP Pulse Ox O2 Del Method O2 Flow Rate 98.1 F 116 H 20 122/70 95 Nasal Cannula 2 02/12/25 07:58 02/12/25 07:58 02/12/25 07:58 02/12/25 07:58 02/12/25 07:58 02/12/25 07:58 02/12/25 07:58 Const General: cooperative, frail appearing and other (Short of breath during casual conversation) Nutritional Appearance: average body habitus Orientation: alert, awake and oriented x3 HEENT Head: normal to inspection, normocephalic and atraumatic Ears: hearing grossly normal bilaterally Nose: external nose normal Face and sinus: normal facial exam Eyes Conjunctivae: conjunctivae normal Pupils: PERRL Neck Neck: trachea midline and supple Neck mass: No Thyroid: thyroid normal Carotids: normal carotid upstroke Resp Effort & Inspection: audible wheezes Auscultation: rales and wheezes Cardio Jugular venous pressure: no JVD Rate: tachycardic Rhythm: abnormal rhythm irregularly irregular Heart Sounds: S1 normal and S2 normal GI Inspection: normal to inspection Palpation: soft and no hepatosplenomegaly Auscultation: normal bowel sounds Extrem General: no clubbing, cyanosis or edema Results - Cardiology Labs 02/12/25 04:09 02/12/25 04:09 Lab results: Cardiac Enzymes 02/11/25 Range/Units 13:14 AST 16 (13-39) U/L Total Creatine Kinase 49 (30-223) U/L B-Natriuretic Peptide 579.0 H (5-100) pg/mL Lipids 02/12/25 Range/Units 04:09 Triglycerides 92 (0-149) mg/dL Cholesterol 99 L (140-200) mg/dL HDL Cholesterol 42 (23-92) mg/dL Cholesterol/HDL Ratio 2.4 (<5.0) CBC 02/11/25 02/12/25 Range/Units 13:14 04:09 RBC 4.33 3.99 (3.60-5.00) x10E6/uL Hgb 11.5 L 10.7 L (11.8-15.4) g/dL Hct 36.1 33.0 L (34.0-46.4) % Plt Count 238 194 (150-450) x10E3/uL Neut # (Auto) 8.3 H 8.5 H (1.8-7.7) x10E3/uL Lymph # (Auto) 3.3 3.2 (1.00-4.8) x10E3/uL Beaver # (Auto) 0.7 0.9 H (0.0-0.8) x10E3/uL Eos # (Auto) 0.2 0.3 (0.0-0.45) x10E3/uL Baso # (Auto) 0.1 0.0 (0.0-0.2) x10E3/uL Comprehensive Metabolic Panel 02/11/25 02/12/25 Range/Units 13:14 04:09 Sodium 137 138 (136-145) mmol/L Potassium 4.0 3.7 (3.5-5.1) mmol/L Chloride 104 108 H (98-107) mmol/L Carbon Dioxide 27.1 23.8 (21.0-31.0) mmol/L BUN 26 H 21 (7-25) mg/dL Creatinine 1.50 H 1.27 H (0.60-1.20) mg/dL Glucose 163 H 135 H (70-100) mg/dL Calcium 9.7 9.2 (8.6-10.3) mg/dL Direct Bilirubin 0.00 L (0.03-0.18) mg/dL Indirect Bilirubin 0.4 mg/dL AST 16 (13-39) U/L ALT 11 (7-52) U/L Alkaline Phosphatase 66 (34-104) U/L Total Protein 7.1 (6.4-8.9) gm/dL Albumin 4.1 (3.5-5.7) gm/dL Intake and Output 02/11/25 02/12/25 02/12/25 23:59 07:59 15:59 Intake Total 100 / 600 460 / 460 Balance 100 / 600 460 / 460 Intake: IV 100 / 600 100 / 100 dilTIAZem 100 MG -*NaCl* 100 mg 100 / 100 100 / 100 In 100 ml @ 10 MG/HR 10 mls/hr IV .Q10H [facility] Rx#:[id number] Oral 360 / 360 Other: # Unmeasured Voids 2 Weight 65.9 kg 66 kg Date of Last Bowel Movement 02/11/25 Patient Weight 02/12/25 23:59 Weight 66 kg Lab 02/11/25 02/11/25 02/11/25 13:14 19:34 19:34 PT 15.0 H INR 1.3 APTT 33.0 126.7 H* Cancelled 02/12/25 04:09 PT INR APTT 42.3 H A&P - Cardiology (1) Acute coronary syndrome: Assessment/Problem Details: This may have been triggered by atrial fibrillation with RVR, underlying CAD progression cannot be excluded, last nuclear stress test 2022 revealed no ischemia Plan: Patient will benefit from invasive cardiac workup with cardiac catheterization to be scheduled tomorrow, meanwhile continue heparin and aspirin. Code(s): I24.9 - Acute ischemic heart disease, unspecified (2) History of coronary artery bypass graft x 3: Assessment/Problem Details: This was back in 2009 with no cardiac catheterization since. Plan: Continue secondary prevention measures, due to ACS invasive cardiac evaluation is recommended Code(s): Z95.1 - Presence of aortocoronary bypass graft (3) Essential tremor: Assessment/Problem Details: Chronic Plan: No specific therapy is available Code(s): G25.0 - Essential tremor (4) Type 2 diabetes mellitus: Plan: Continue home medications with Januvia Code(s): E11.9 - Type 2 diabetes mellitus without complications (5) Atrial fibrillation with RVR: Assessment/Problem Details: Patient asymptomatic, currently on Cardizem drip and heparin. Plan: Patient will benefit from antiarrhythmic therapy to prevent recurrent atrial fibrillation and hopefully to restore normal sinus rhythm. Will add sotalol 80 mg twice daily, daily EKG, cardioversion ifnecessary Code(s): I48.91 - Unspecified atrial fibrillation (6) Chronic kidney disease: Assessment/Problem Details: Stage III Plan: Avoid nephrotoxic medications Code(s): N18.9 - Chronic kidney disease, unspecified (7) Dyslipidemia: Assessment/Problem Details: Intolerant to most of the statins Plan: Patient seem to have difficulties affording Livalo, consider pravastatin Code(s): E78.5 - Hyperlipidemia, unspecified Documented By: Eliezer Potts MD, [facility] [id number] Signed By: 02/12/25 0837 [facility]05-17-2025 History and physical note Author Marcos Neves [facility] Note Date/Time February 11, 2025 6:27p [facility] ENTER [address] [place] [address] Hospitalist H&P Signed Patient: Daniela Raymundo MR#: [id number] : 1945 Acct:[id number] Age/Sex: 80 / F Adm Date: Loc: Room: 5L3937-9 Type: ADM IN Attending Dr: Marcos Neves DO Copies to: DO Sonja Lozano MD~ HPI DATE OF EXAMINATION: 02/11/25 CHIEF COMPLAINT: Chest pain and fast heart rate. HISTORY OF PRESENT ILLNESS: This is an 80-year-old woman came to emergency room today with chest pain. It was radiating into her back and her neck. She told the ER triage staff that shethought that she was having a heart attack. She actually had been having chest pain coming and going for a week or more. When she got checked in the ER she was found to have atrial fibrillation with rapid ventricular response. On the surveillance monitor they saw T wave depressions in the anterior and inferior leads. They sent twelve-lead EKGs to interventional cardiology with Dr. Sol. He did not recommend activation of the cardiac catheterization lab originally. He did recommend heparin infusion and Cardizem drip and nitroglycerin. The ER did these treatments. With this her heart rate improved and all of her chest pain resolved. The patient's initial troponin is 76. I am waiting on a follow-up troponin. BNP is 579. Serum creatinine in the past has been as high as 1.6 but today it is 1.5. Chest x-ray shows no acute problems. She does have a history of three-vessel coronary artery bypass graft and atrial fibrillation. She is anticoagulated with Eliquis. She has Parkinson's disease,GERD, diabetes mellitus type 2, and anxiety. The patient explains that she was having this chest pain off-and-on for couple weeks. She called Dr. Sol's office. She describes that she wore a Holter monitor for couple days. She turned it in a day or 2 ago, but then the chest pain got worse. The pain was in the middle of her chest and going up to both sides of her neck and both shoulders and down both arms. It did remind her of when she had a heart attack in the past. She did have a three-vessel coronary artery bypass grafting in 2010. 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 Her points out that they are almost done with these treatments. She normally has to stop her Eliquis for 2 or 3 days before that procedure. Review of Systems Review of Systems Review of systems: 10 systems are reviewed and are negative except as mentioned elsewhere in the documentation. [facility] Medical History (Updated 02/11/25 @ 18:26 by Marcos Neves DO) Tremor Cholecystectomy planned Problem List clean-up per request of Phys. EHR Cmte GERD (gastroesophageal reflux disease) Problem List clean-up per request of Phys. EHR Cmte Diabetes Problem List clean-up per request of Phys. EHR Cmte Afib Problem List clean-up per request of Phys. EHR Cmte Anxiety Problem List clean-up per request of Phys. EHR [facility] Surgical History S/P triple vessel bypass Problem List clean-up per request of Phys. EHR Cmte Hx of appendectomy Problem List clean-up per request of Phys. EHR Cmte H/O: hysterectomy Problem List clean-up per request of Phys. EHR [facility] Family History Father Cancer Mother Cancer Social History Smoking Status: Former smoker Tobacco Type: cigarettes Substance Use Type: None Substance Abuse Comment: Did smoke cigarettes but quit at the age of 33 to 38. Meds Medications and Allergies Allergies ethyl alcohol Allergy (Severe, Verified 02/11/25 18:24) Hives Edfctbr-NYW-IqG Reductase Inhibitor Allergy (Intermediate, Verified 02/11/25 13:23) Hives ezetimibe (From Zetia) Allergy (Verified 02/11/25 13:23) Muscle Pain Home Medications alprazolam 0.5 mg tablet 0.5 mg PO DAILY PRN Anxiety 11/25/21 [History Confirmed 02/11/25] apixaban 5 mg tablet (Eliquis) 5 mg PO BID 11/25/21 [History Confirmed 02/11/25] aspirin 81 mg capsule 81 mg PO 3XW 11/25/21 [History Confirmed 02/11/25] esomeprazole magnesium 40 mg capsule,delayed release 40 mg PO BID 11/25/21 [History Confirmed 02/11/25] furosemide 40 mg tablet (Lasix) 40 mg PO DAILY 11/25/21 [History Confirmed 02/11/25] levothyroxine 75 mcg tablet 75 mcg PO DAILY 11/25/21 [History Confirmed 02/11/25] losartan 25 mg tablet 25 mg PO DAILY 11/25/21 [History Confirmed 02/11/25] pitavastatin calcium 2 mg tablet (Livalo) 2 mg PO DAILY 11/25/21 [History Confirmed 02/11/25] potassium 99 mg tablet 99 mg PO DAILY 11/25/21 [History Confirmed 02/11/25] sitagliptin phosphate 100 mg tablet (Januvia) 100 mg PO DAILY 11/25/21 [History Confirmed 02/11/25] levocetirizine 5 mg tablet 5 mg PO DAILY 12/05/24 [History Confirmed 02/11/25] Exam Physical Exam Vital Signs: Temp Pulse Resp BP Pulse Ox O2 Del Method 97.5 F L 95 22 103/68 91 L Room Air 02/11/25 13:11 02/11/25 17:15 02/11/25 17:00 02/11/25 17:00 02/11/25 17:00 02/11/25 13:17 Narrative: GEN: Awake, alert, oriented x 3. Head: Normal Cephalic, Atraumatic. Eyes: Conjunctiva and sclera clear bilaterally. Nose: External nose and nares normal bilaterally. Mouth: Lips and tongue normal. Neck: No JVD. No thyromegaly. No lymphadenopathy. Lungs: Clear to auscultation bilaterally, no wheezing, no crackles. Heart: Irregularly irregular. On the telemetry right now her A-fib is running at 85 to 90 bpm. To auscultation I hear no murmurs, rubs, or gallops. Abdomen: Soft, normal bowel sounds, no rigidity, guarding, or acute peritoneal signs. Extremities: No swelling or cords in the calves bilaterally, no edema in the ankles bilaterally. Skin: No systemic rashes or lesions. Psychiatric: Calm. Conversant. Cooperative. Neuro: Does have a strong tremor at baseline. Has plenty of movement of her forehead so I agree with her that her tremor is essential tremor and not Parkinson's disease. AMARI Risk Score AMARI Risk Score Predictor Historical: Age > 65 Years Old, 3 or more Risk Factors: FHx,HTN,elevated cholesterol,DM,active smoker and ASA use in Past 7 Days Presentation: Recent (>/=24hr) Angina and Increased Cardiac Marker Score Risk Score (0-7): 5 Results - Hospitalist H&P Lab Results Labs: Laboratory Last Values Corrected WBC 12.5 X10E3/uL (3.8-11.6) H 02/11/25 13:14 Uncorrected WBC Count 12.5 x10E3/uL (3.8-11.6) H 02/11/25 13:14 RBC 4.33 x10E6/uL (3.60-5.00) 02/11/25 13:14 Hgb 11.5 g/dL (11.8-15.4) L 02/11/25 13:14 Hct 36.1 % (34.0-46.4) 02/11/25 13:14 MCV 83.4 fl (80-100) 02/11/25 13:14 MCH 26.6 pg (24.7-34.3) 02/11/25 13:14 MCHC 31.9 g/dL (32.0-35.0) L 02/11/25 13:14 RDW 14.9 % (11.9-15.3) 02/11/25 13:14 Plt Count 238 x10E3/uL (150-450) 02/11/25 13:14 MPV 9.4 fl (6.3-10.7) 02/11/25 13:14 Neut % (Auto) 66.2 % (.) 02/11/25 13:14 Lymph % (Auto) 26.1 % (.) 02/11/25 13:14 Beaver % (Auto) 5.5 % (.) 02/11/25 13:14 Eos % (Auto) 1.6 % (.) 02/11/25 13:14 Baso % (Auto) 0.6 % (.) 02/11/25 13:14 Nucleat RBC Rel Count 0.1 /100 WBC (0-0.5) 02/11/25 13:14 Neut # (Auto) 8.3 x10E3/uL (1.8-7.7) H 02/11/25 13:14 Lymph # (Auto) 3.3 x10E3/uL (1.00-4.8) 02/11/25 13:14 Beaver # (Auto) 0.7 x10E3/uL (0.0-0.8) 02/11/25 13:14 Eos # (Auto) 0.2 x10E3/uL (0.0-0.45) 02/11/25 13:14 Baso # (Auto) 0.1 x10E3/uL (0.0-0.2) 02/11/25 13:14 Monocyte Dist Width 16.94 % (0.00-20.00) 02/11/25 13:14 PT 15.0 Seconds (9.0-12.9) H 02/11/25 13:14 INR 1.3 02/11/25 13:14 APTT 33.0 Seconds (25.1-36.5) 02/11/25 13:14 Heparin Anti-Xa, Unfract 1.74 IU/mL (0.30-0.70) H* 02/11/25 13:14 Heparin Anti-Xa, Unfract Cancelled 02/11/25 13:14 PHA Creatinine Clear 26.38 02/11/25 13:14 Sodium 137 mmol/L (136-145) 02/11/25 13:14 Potassium 4.0 mmol/L (3.5-5.1) 02/11/25 13:14 Chloride 104 mmol/L (98-107) 02/11/25 13:14 Carbon Dioxide 27.1 mmol/L (21.0-31.0) 02/11/25 13:14 Anion Gap 9.9 mEq/L (6.0-15.0) 02/11/25 13:14 BUN 26 mg/dL (7-25) H 02/11/25 13:14 Creatinine 1.50 mg/dL (0.60-1.20) H 02/11/25 13:14 Est GFR (CKD-EPI) 34.578 mL/Min 02/11/25 13:14 Glucose 163 mg/dL (70-100) H 02/11/25 13:14 Calcium 9.7 mg/dL (8.6-10.3) 02/11/25 13:14 Total Bilirubin 0.4 mg/dl (0.3-1.0) 02/11/25 13:14 Direct Bilirubin 0.00 mg/dL (0.03-0.18) L 02/11/25 13:14 Indirect Bilirubin 0.4 mg/dL 02/11/25 13:14 AST 16 U/L (13-39) 02/11/25 13:14 ALT 11 U/L (7-52) 02/11/25 13:14 Alkaline Phosphatase 66 U/L (34-104) 02/11/25 13:14 Total Creatine Kinase 49 U/L (30-223) 02/11/25 13:14 Troponin I High Sens 76 ng/L (0-15) H* 02/11/25 13:14 B-Natriuretic Peptide 579.0 pg/mL (5-100) H 02/11/25 13:14 Total Protein 7.1 gm/dL (6.4-8.9) 02/11/25 13:14 Albumin 4.1 gm/dL (3.5-5.7) 02/11/25 13:14 Globulin 3.0 gm/dL 02/11/25 13:14 Albumin/Globulin Ratio 1.4 02/11/25 13:14 Lipase 15.0 U/L (11.0-82.0) 02/11/25 13:14 Assessment & Plan Assessment/Plan (1) Atrial fibrillation with RVR: (2) Coronary artery disease: (3) Tremor: (4) Angina at rest: Plan Assessment: Chest pain. Atrial fibrillation with rapid ventricular response. Coronary artery disease with history of three-vessel CABG back in 2010. Intolerance to statins and Zetia. Plan: Hospital admission, inpatient status. Continue Cardizem drip for rate control of atrial fibrillation. Consult to cardiology. Sees Dr. Sol. Continuous telemetry monitoring. Cycle additional cardiac enzymes. Hold Eliquis because cardiology has recommended a Cardizem and heparin infusion. IP vs OBS Justification Based on differential dx, clinical care plan, and risk of adverse events, if untreated, in my clinical judgement this patient requires an acute care setting as: INPATIENT because of an expectation of an over 2 midnight stay. Estimated length of stay (# of days): 3 Documented By: Marcos Neves DO 180 Signed By: <Electronically signed by Marcos Neves DO> 02/11/25 1827 [facility] Work Phone: [phone] [place] [address] Hospitalist H&P Signed Patient: Daniela Raymundo MR#: [id number] : 1945 Acct:[id number] Age/Sex: 80 / F Adm Date: 5 Loc: Room: [address] [place] [address] Type: ADM IN Attending Dr: Marcos Neves DO Copies to: DO Sonja Lozano MD~ HPI DATE OF EXAMINATION: 02/11/25 CHIEF COMPLAINT: Chest pain and fast heart rate. HISTORY OF PRESENT ILLNESS: This is an 80-year-old woman came to emergency room today with chest pain. It was radiating into her back and her neck. She told the ER triage staff that shethought that she was having a heart attack. She actually had been having chest pain coming and going for a week or more. When she got checked in the ER she was found to have atrial fibrillation with rapid ventricular response. On the surveillance monitor they saw T wave depressions in the anterior and inferior leads. They sent twelve-lead EKGsto interventional cardiology with Dr. Sol. He did not recommend activation of the cardiac catheterization lab originally. He did recommend heparin infusion and Cardizem drip and nitroglycerin. The ER did these treatments. With this her heart rate improved and all of her chest pain resolved. The patient's initial troponin is 76. I am waiting on a follow-up troponin. BNP is 579. Serum creatinine in the past has been as high as 1.6 but today it is 1.5. Chest x-ray shows no acute problems. She does have a history of three-vessel coronary artery bypass graft and atrial fibrillation. She is anticoagulated with Eliquis. She has Parkinson's disease,GERD, diabetes mellitus type 2, and anxiety. The patient explains that she was having this chest pain off-and-on for couple weeks. She called Dr. Sol's office. She describes that she wore a Holter monitor for couple days. She turned it in ada or 2 ago, but then the chest pain got worse. The pain was in the middle of her chest and going up to both sides of her neck and both shoulders and down both arms. It did remind her of when she had a heart attack in the past. She did have a three-vessel coronary artery bypass grafting in 2010. 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 Her points out that they are almost done with these treatments. She normally has to stop her Eliquis for 2 or 3 days before that procedure. Review of Systems Review of Systems Review of systems: 10 systems are reviewed and are negative except as mentioned elsewhere in the documentation. [facility] Medical History (Updated 02/11/25 @ 18:26 by Marcos Neves DO) Tremor Cholecystectomy planned Problem List clean-up per request of Phys. EHR Cmte GERD (gastroesophageal reflux disease) Problem List clean-up per request of Phys. EHR Cmte Diabetes Problem List clean-up per request of Phys. EHR Cmte Afib Problem List clean-up per request of Phys. EHR Cmte Anxiety Problem List clean-up per request of Phys. EHR Cmte Surgical History S/P triple vessel bypass Problem List clean-up per request of Phys. EHR Cmte Hx of appendectomy Problem List clean-up per request of Phys. EHR Cmte H/O: hysterectomy Problem List clean-up per request of Phys. EHR Cmte Family History Father Cancer Mother Cancer Social History Smoking Status: Former smoker Tobacco Type: cigarettes Substance Use Type: None Substance Abuse Comment: Did smoke cigarettes but quit at the age of 33 to 38. Meds Medications and Allergies Allergies ethyl alcohol Allergy (Severe, Verified 02/11/25 18:24) Hives Oxdykng-ISG-HqD Reductase Inhibitor Allergy (Intermediate, Verified 02/11/25 13:23) Hives ezetimibe (From Zetia) Allergy (Verified 02/11/25 13:23) Muscle Pain Home Medications alprazolam 0.5 mg tablet 0.5 mg PO DAILY PRN Anxiety 11/25/21 [History Confirmed 02/11/25] apixaban 5 mg tablet (Eliquis) 5 mg PO BID 11/25/21 [History Confirmed 02/11/25] aspirin 81 mg capsule 81 mg PO 3XW 11/25/21 [History Confirmed 02/11/25] esomeprazole magnesium 40 mg capsule,delayed release 40 mg PO BID 11/25/21 [History Confirmed 02/11/25] furosemide 40 mg tablet (Lasix) 40 mg PO DAILY 11/25/21 [History Confirmed 02/11/25] levothyroxine 75 mcg tablet 75 mcg PO DAILY 11/25/21 [History Confirmed 02/11/25] losartan 25 mg tablet 25 mg PO DAILY 11/25/21 [History Confirmed 02/11/25] pitavastatin calcium 2 mg tablet (Livalo) 2 mg PO DAILY 11/25/21 [History Confirmed 02/11/25] potassium 99 mg tablet 99 mg PO DAILY 11/25/21 [History Confirmed 02/11/25] sitagliptin phosphate 100 mg tablet (Januvia) 100 mg PO DAILY 11/25/21 [History Confirmed 02/11/25] levocetirizine 5 mg tablet 5 mg PO DAILY 12/05/24 [History Confirmed 02/11/25] Exam Physical Exam Vital Signs: Temp Pulse Resp BP Pulse Ox O2 Del Method 97.5 F L 95 22 103/68 91 L Room Air 02/11/25 13:11 02/11/25 17:15 02/11/25 17:00 02/11/25 17:00 02/11/25 17:00 02/11/25 13:17 Narrative: GEN: Awake, alert, oriented x 3. Head: Normal Cephalic, Atraumatic. Eyes: Conjunctiva and sclera clear bilaterally. Nose: External nose and nares normal bilaterally. Mouth: Lips and tongue normal. Neck: No JVD. No thyromegaly. No lymphadenopathy. Lungs: Clear to auscultation bilaterally, no wheezing, no crackles. Heart: Irregularly irregular. On the telemetry right now her A-fib is running at 85 to 90 bpm. To auscultation I hear no murmurs, rubs, or gallops. Abdomen: Soft, normal bowel sounds, no rigidity, guarding, or acute peritoneal signs. Extremities: No swelling or cords in the calves bilaterally, no edema in the ankles bilaterally. Skin: No systemic rashes or lesions. Psychiatric: Calm. Conversant. Cooperative. Neuro: Does have a strong tremor at baseline. Has plenty of movement of her forehead so I agree with her that her tremor is essential tremor and not Parkinson's disease. AMARI Risk Score AMARI Risk Score Predictor Historical: Age > 65 Years Old, 3 or more Risk Factors: FHx,HTN,elevated cholesterol,DM,active smoker and ASA use in Past 7 Days Presentation: Recent (>/=24hr) Angina and Increased Cardiac Marker Score Risk Score (0-7): 5 Results - Hospitalist H&P Lab Results Labs: Laboratory Last Values Corrected WBC 12.5 X10E3/uL (3.8-11.6) H 02/11/25 13:14 Uncorrected WBC Count 12.5 x10E3/uL (3.8-11.6) H 02/11/25 13:14 RBC 4.33 x10E6/uL (3.60-5.00) 02/11/25 13:14 Hgb 11.5 g/dL (11.8-15.4) L 02/11/25 13:14 Hct 36.1 % (34.0-46.4) 02/11/25 13:14 MCV 83.4 fl (80-100) 02/11/25 13:14 MCH 26.6 pg (24.7-34.3) 02/11/25 13:14 MCHC 31.9 g/dL (32.0-35.0) L 02/11/25 13:14 RDW 14.9 % (11.9-15.3) 02/11/25 13:14 Plt Count 238 x10E3/uL (150-450) 02/11/25 13:14 MPV 9.4 fl (6.3-10.7) 02/11/25 13:14 Neut % (Auto) 66.2 % (.) 02/11/25 13:14 Lymph % (Auto) 26.1 % (.) 02/11/25 13:14 Beaver % (Auto) 5.5 % (.) 02/11/25 13:14 Eos % (Auto) 1.6 % (.) 02/11/25 13:14 Baso % (Auto) 0.6 % (.) 02/11/25 13:14 Nucleat RBC Rel Count 0.1 /100 WBC (0-0.5) 02/11/25 13:14 Neut # (Auto) 8.3 x10E3/uL (1.8-7.7) H 02/11/25 13:14 Lymph # (Auto) 3.3 x10E3/uL (1.00-4.8) 02/11/25 13:14 Beaver # (Auto) 0.7 x10E3/uL (0.0-0.8) 02/11/25 13:14 Eos # (Auto) 0.2 x10E3/uL (0.0-0.45) 02/11/25 13:14 Baso # (Auto) 0.1 x10E3/uL (0.0-0.2) 02/11/25 13:14 Monocyte Dist Width 16.94 % (0.00-20.00) 02/11/25 13:14 PT 15.0 Seconds (9.0-12.9) H 02/11/25 13:14 INR 1.3 02/11/25 13:14 APTT 33.0 Seconds (25.1-36.5) 02/11/25 13:14 Heparin Anti-Xa, Unfract 1.74 IU/mL (0.30-0.70) H* 02/11/25 13:14 Heparin Anti-Xa, Unfract Cancelled 02/11/25 13:14 PHA Creatinine Clear 26.38 02/11/25 13:14 Sodium 137 mmol/L (136-145) 02/11/25 13:14 Potassium 4.0 mmol/L (3.5-5.1) 02/11/25 13:14 Chloride 104 mmol/L (98-107) 02/11/25 13:14 Carbon Dioxide 27.1 mmol/L (21.0-31.0) 02/11/25 13:14 Anion Gap 9.9 mEq/L (6.0-15.0) 02/11/25 13:14 BUN 26 mg/dL (7-25) H 02/11/25 13:14 Creatinine 1.50 mg/dL (0.60-1.20) H 02/11/25 13:14 Est GFR (CKD-EPI) 34.578 mL/Min 02/11/25 13:14 Glucose 163 mg/dL (70-100) H 02/11/25 13:14 Calcium 9.7 mg/dL (8.6-10.3) 02/11/25 13:14 Total Bilirubin 0.4 mg/dl (0.3-1.0) 02/11/25 13:14 Direct Bilirubin 0.00 mg/dL (0.03-0.18) L 02/11/25 13:14 Indirect Bilirubin 0.4 mg/dL 02/11/25 13:14 AST 16 U/L (13-39) 02/11/25 13:14 ALT 11 U/L (7-52) 02/11/25 13:14 Alkaline Phosphatase 66 U/L (34-104) 02/11/25 13:14 Total Creatine Kinase 49 U/L (30-223) 02/11/25 13:14 Troponin I High Sens 76 ng/L (0-15) H* 02/11/25 13:14 B-Natriuretic Peptide 579.0 pg/mL (5-100) H 02/11/25 13:14 Total Protein 7.1 gm/dL (6.4-8.9) 02/11/25 13:14 Albumin 4.1 gm/dL (3.5-5.7) 02/11/25 13:14 Globulin 3.0 gm/dL 02/11/25 13:14 Albumin/Globulin Ratio 1.4 02/11/25 13:14 Lipase 15.0 U/L (11.0-82.0) 02/11/25 13:14 Assessment & Plan Assessment/Plan (1) Atrial fibrillation with RVR: (2) Coronary artery disease: (3) Tremor: (4) Angina at rest: Plan Assessment: Chest pain. Atrial fibrillation with rapid ventricular response. Coronary artery disease with history of three-vessel CABG back in 2010. Intolerance to statins and Zetia. Plan: Hospital admission, inpatient status. Continue Cardizem drip for rate control of atrial fibrillation. Consult to cardiology. Sees Dr. Sol. Continuous telemetry monitoring. Cycle additional cardiac enzymes. Hold Eliquis because cardiology has recommended a Cardizem and heparin infusion. IP vs OBS Justification Based on differential dx, clinical care plan, and risk of adverse events, if untreated, in my clinical judgement this patient requires an acute care setting as: INPATIENT because of an expectation ofan over 2 midnight stay. Estimated length of stay (# of days): 3 Documented By: Marcos Neves DO 1804 Signed By: 02/11/25 1827 [facility]05-17-2025 Evaluation note* Diagnosis Onset Date Resolution Status Admit Date Acute coronary syndrome acute M ay 2024 3:56pm Angina at rest acute February 11, 2025 3:56pm Atrial fibrillation with RVR acute May 17th, 2025 3:56pm Chronic kidney disease acute Ma y 2024 3:56pm Coronary artery disease acute M ay 2024 3:56pm Dyslipidemia acute February 11 3:56pm Essential tremor acute January 3:56pm History of coronary artery b ypass graft x 3 acute February 11, 2025 3 :56pm Tremor acute February 11, 2025 3:56pm Type 2 diabetes mellitus acute February 11, 2025 3:56pm [facility] Work Phone: 1(478) 371-384405-15-2025 Nurse Note* Felipe Sands RN - 02/09/2025 8:55 AM EDT Attempted to reach the patient at the contact number that they provided [phone] (home) . Unable to speak with patient so without identifying the patient the following information was left on their voice mail: Date of procedure, location and report time A message was left informing the patient/patient insurance claim representative they must have a responsible adult accompany them to their procedure; and remain in the endoscopy area until they are discharged. Failure to have a responsible adult accompany the patient to their procedure appointment prevents the useof sedation or anesthesia for their procedure; and can result in cancellation of the procedure NPO instructions were reviewed. Instructions to contact their primary care provider regarding their medications and which medications to stop in preparation for their procedure Instructions to completely read and follow the written instructions that they recieved regarding their procedure. Number to call with questions or concerns [phone] Number to call to cancel their procedure [phone] Felipe Sands RN [facility]05-15-2025 Nurse Note* Felipe Sands RN - 02/09/2025 8:55 AM EDT Attempted to reach the patient at the contact number that they provided [phone] (home) . Unable to speak with patient so without identifying the patient the following information was left on their voice mail: Date of procedure, location and report time A message was left informing the patient/patient insurance claim representative they must have a responsible adult accompany them to their procedure; and remain in the endoscopy area until they are discharged. Failure to have a responsible adult accompany the patient to their procedure appointment prevents the useof sedation or anesthesia for their procedure; and can result in cancellation of the procedure NPO instructions were reviewed. Instructions to contact their primary care provider regarding their medications and which medications to stop in preparation for their procedure Instructions to completely read and follow the written instructions that they recieved regarding their procedure. Number to call with questions or concerns [phone] Number to call to cancel their procedure [phone] Felipe Sands RN [facility] Note* Adore Del Real RN - 12/29/2024 3:24 PM EDT Attempted to reach the patient at the contact number that they provided [phone] (home) . Unable to speak with patient so without identifying the patient the following information was left on their voice mail: Date of procedure, location and report time Prep instructions A message was left informing the patient/patient insurance claim representative they must have a responsible adult accompany them to their procedure; and remain in the endoscopy area until they are discharged. Failure to have a responsible adult accompany the patient to their procedure appointment prevents the useof sedation or anesthesia for their procedure; and can result in cancellation of the procedure NPO instructions were reviewed. Instructions to contact their primary care provider regarding their medications and which medications to stop in preparation for their procedure Instructions to completely read and follow the written instructions that they recieved regarding their procedure. Number to call with questions or concerns [phone] Number to call to cancel their procedure [phone] Adore Del Real RN [facility]04-03-2025 Nurse Note* Adore Del Real RN - 12/29/2024 3:24 PM EDT Attempted to reach the patient at the contact number that they provided [phone] (home) . Unable to speak with patient so without identifying the patient the following information was left on their voice mail: Date of procedure, location and report time Prep instructions A message was left informing the patient/patient insurance claim representative they must have a responsible adult accompany them to their procedure; and remain in the endoscopy area until they are discharged. Failure to have a responsible adult accompany the patient to their procedure appointment prevents the useof sedation or anesthesia for their procedure; and can result in cancellation of the procedure NPO instructions were reviewed. Instructions to contact their primary care provider regarding their medications and which medications to stop in preparation for their procedure Instructions to completely read and follow the written instructions that they recieved regarding their procedure. Number to call with questions or concerns [phone] Number to call to cancel their procedure [phone] Adore Del Real RN documented [facility] Radiology Diagnostic study [facility] [place] [address] [place] [address] CT Scan Report Signed Patient: Daniela Raymundo MR#: [id number] : 1945 Acct:[id number] Age/Sex: 79 / F ADM Date: 5 Loc: ER Room: Type: [facility] ER Attending Dr: Copies to: Erwin Childers DO~ Ordering Provider: Erwin Childers DO Date of Service: 12/05/24 CT/CT angio chest PE protocol: eval for PE vs pna CTA Chest TECHNIQUE: Axial imaging with 2-D and 3-D reconstruction. 75cc of Isovue-[address] exam was performed using one or more the following dose reduction techniques: Automated exposure control, adjustment of the MA and/or Kvaccording to patient size, or use of the iterative reconstruction technique. History: Left-sided chest pain. Shortness of breath COMPARISON: None THYROID: Unremarkable TRACHEA AND BRONCHI: Patent ESOPHAGUS: Large hiatal hernia. HEART: Cardiomegaly with CABG. PERICARDIAL EFFUSION: None CORONARY ARTERY CALCIFICATION: Present MEDIASTINUM: No adenopathy. No pneumoperitoneum. No mediastinal hematoma. PULMONARY PRIETO: No hilar mass or adenopathy is seen. THORACIC AORTA Unremarkable PULMONARY EMBOLUS: None LUNG NODULE None LUNGS: The basilar scarring. PLEURAL EFFUSION: None PNEUMOTHORAX: No pneumothorax seen. CHEST WALL: No abnormality AXILLA: Unremarkable BONY STRUCTURES Intact UPPER ABDOMEN: Images of the upper abdomen are noncontributory. CT/CT angio chest PE protocol IMPRESSION: No no aneurysm or dissection. No pulmonary embolus. No acute findings. Large hiatal hernia. Cardiomegaly. Impression dictated by: Laith Dejesus M.D.12/05/2024 9:25 PM Dictation Location: RADIO-PC-20 Transcribed By: NATALY 12/05/242124 Dictated By: Laith Dejesus DO 12/05/242120 Signed By: 12/05/242124 [facility]02-17-2025 NoteEntered by CARMELA MUNSON DO on November 14, 2024 12:57:29 EST From: CARMELA MUNSON DO To: [email or web address] Mail Delivery Sent: 11/14/2024 12:57:29 EST Subject: Medication Management Approved with modifications: !-[facility] Request. (Accu-Chek Guide Test In Vitro Strip) CHECK BLOOD SUGAR ONE TIME DAILY AND NEEDED Qty: 200 Strip Days Supply: 90 Refills: 3 Substitutions Allowed Route To Pharmacy - [facility] Mail [facility] Patient matched by CARMELA MUNSON DO on 11/14/2024 12:57:06 EST From: [email or web address] Mail Delivery To: CARMELA MUNSON DO Sent: November 14, 2024 11:25:03 AM ELEVATOR DISPATCHER Subject: Medication Management Due: November 15, 2024 12:02:12 AM ELEVATOR DISPATCHER On Hold Pending Signature Drug: ACCU-CHEK GUIDE Strip, CHECK BLOOD SUGAR ONE TIME DAILY AND NEEDED Quantity: 200 Strip Days Supply: 0 Refills: 2 Substitutions Allowed Notes from Pharmacy: Dispensed Drug: Accu-Chek Guide Test In Vitro Strip, CHECK BLOOD SUGAR ONE TIME DAILY AND NEEDED Quantity: 200 Strip Days Supply: 90 Refills: 3 Substitutions Allowed [id number] Telephone encounter Note* Telephone Encounter - Hyun Woodward MA - 10/03/2024 10:27 AM EST Pharmacy calling in requesting refills as follows: Requested Prescriptions Pending Prescriptions Disp Refills esomeprazole (NEXIUM) 40 mg capsule [Pharmacy Med Name: Esomeprazole Magnesium Oral Capsule DelayedRelease 40 MG] 180 capsule 3 Sig: TAKE 1 CAPSULE TWICE DAILY [facility] - 09/09/2022 with Last Egd 08/04/2024 with Ashlie [facility]01-06-2025 Miscellaneous Notes* Telephone Encounter - Hyun Woodward MA - 10/03/2024 10:27 AM EST Pharmacy calling in requesting refills as follows: Requested Prescriptions Pending Prescriptions Disp Refills esomeprazole (NEXIUM) 40 mg capsule [Pharmacy Med Name: Esomeprazole Magnesium Oral Capsule DelayedRelease 40 MG] 180 capsule 3 Sig: TAKE 1 CAPSULE TWICE DAILY [facility] - 09/09/2022 with Last Egd 08/04/2024 with Ashlie [facility]11[facility] Telephone encounter Note * Telephone Encounter - Norbert Dailey MD - 08/10/2024 3:12 PM EST I spoke to Mrs. Raymundo. The biopsies of the distal esophagus revealed normal squamous tissue. The more proximal biopsies revealed low-grade dysplasia. There was no evidence for high- grade dysplasia. Mrs. Raymundo wishes to delay the next round of therapy a bit until December. I will arrange for this. [facility]11-13-2024 Miscellaneous Notes* Telephone Encounter - Norbert Dailey MD - 08/10/2024 3:12 PM EST I spoke to Mrs. Raymundo. The biopsies of the distal esophagus revealed normal squamous tissue. The more proximal biopsies revealed low-grade dysplasia. There was no evidence for high- grade dysplasia. Mrs. Raymundo wishes to delay the next round of therapy a bit until December. I will arrange for this. documented in this encounterMed[facility]11-07-2024 Nurse Note* Michelle Pino RN - 08/04/2024 4:48 PM EST AMBULATORY PATIENT EDUCATION NOTE TOPIC: GI PROCEDURES: Esophagogastroduodenoscopy(EGD) with or without biopies based on clinical findings, removal of polyps or lesions READINESS TO LEARN INSTRUCTION PROVIDED TO: Patient, readness to learn accessed prior to procedure COGNITIVE ABILITY: Alert and oriented PTED MOTIVATION TO LEARN: Interested FAMILY SUPPORT: High - Very involved in pt care IPATIENT LEARNS BEST BY: Individual Instruction FACTORS AFFECTING LEARNING: None PHYSICAL LIMITATIONS AFFECTING LEARNING: None LEARNING RESPONSE METHOD OF INSTRUCTION: Individual instruction PATIENT / FAMILY RESPONSE: Verbalizes understanding of: WORSENING CONDITION- Signs and symptoms of aworsening condition that warrant a call to the physician FOLLOW-UP PLAN: Patient instructed to call with any further issues SUPPLEMENTAL MATERIAL: Procedure Discharge Instructions REFERRAL (RECOMMENDATION): None [facility]11-07-2024 Nurse Note* Michelle Pino RN - 08/04/2024 4:48 PM EST AMBULATORY PATIENT EDUCATION NOTE TOPIC: GI PROCEDURES: Esophagogastroduodenoscopy(EGD) with or without biopies based on clinical findings, removal of polyps or lesions READINESS TO LEARN INSTRUCTION PROVIDED TO: Patient, readness to learn accessed prior to procedure COGNITIVE ABILITY: Alert and oriented PTED MOTIVATION TO LEARN: Interested FAMILY SUPPORT: High - Very involved in pt care IPATIENT LEARNS BEST BY: Individual Instruction FACTORS AFFECTING LEARNING: None PHYSICAL LIMITATIONS AFFECTING LEARNING: None LEARNING RESPONSE METHOD OF INSTRUCTION: Individual instruction PATIENT / FAMILY RESPONSE: Verbalizes understanding of: WORSENING CONDITION- Signs and symptoms of aworsening condition that warrant a call to the physician FOLLOW-UP PLAN: Patient instructed to call with any further issues SUPPLEMENTAL MATERIAL: Procedure Discharge Instructions REFERRAL (RECOMMENDATION): None * Sully Larson LPN - 08/04/2024 1:58 PM EST PRE OP LEARNING ASSESSMENT PROCEDURE/SURGERY: GI PROCEDURES: EGD READINESS TO LEARN COGNITIVE ABILITY: Alert and oriented MOTIVATION TO LEARN: Eager Interested FAMILY SUPPORT: High - Very involved in pt care PATIENT LEARNS BEST BY: Individual Instruction Written Instruction - Hand-outs Verbal Instruction FACTORS AFFECTING LEARNING: None PHYSICAL LIMITATIONS AFFECTING LEARNING: None Electronically Signed By: Sully Larson LPN In Department: GASTROENTEROLOGY documented in this encounterMedina Hospital11-07-2024 NoteQ3 Patient Name: Daniela Raymundo Procedure Date: 08/04/2024 2:33 PM Date of : 1945 Admit Type: Outpatient Age: 79 Gender: Female Note Status: Finalized Attending MD: Norbert Dailey MD, [id number] Procedure: Upper GI endoscopy Indications: Therapeutic procedure, 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 Requesting Provider: Procedure: Pre-Anesthesia Assessment: - Prior to the procedure, a History and Physical was performed, and patient medications and allergies were reviewed. The patient's tolerance of previous anesthesia was also reviewed. The risks and benefits of the procedure and the sedation options and risks were discussed with the patient. All questions were answered, and informed consent was obtained. Prior Anticoagulants: The patient has taken no anticoagulant or antiplatelet agents. ASA Grade Assessment: III - A patient with severe systemic disease. After reviewing the risks and benefits, the patient was deemed in satisfactory condition to undergo the procedure. After obtaining informed consent, the endoscope was passed under direct vision. Throughout the procedure, the patient's blood pressure, pulse, and oxygen saturations were monitored continuously. The Endoscope was introduced through the mouth, and advanced to the second part of duodenum. The upper GI endoscopy was accomplished with ease. The patient tolerated the procedure well. Moderate Sedation: MAC anesthesia was administered by the anesthesia team. Findings: The esophagus and gastroesophageal junction were examined with white light and narrow band imaging (NBI) from a forward view and retroflexed position. 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 These changes involved the mucosa along an irregular Z-line (32 cm from the incisors). Two tongues of salmon-colored mucosa were present from 30 to 32 cm and scattered islands of salmon-colored mucosa were present from 18 to 30 cm. The maximum longitudinal extent of these esophageal mucosal changes was 12 cm in length. The number and size of the Haji's islands had decreased. A 5 cm hiatal hernia was present. The entire examined stomach was normal. The first portion of the duodenum and second portion of the duodenum were normal. The decision was made to ablate with nitrous oxide balloon cryotherapy. Endoscopic visualization identified an ablation site including the entire visible Haij's segment that was not circumferential. The ablation catheter was inserted through the working channel of the endoscope. The first ablation area was identified. After aligning the spray diffuser with the mucosal target, liquid nitrous oxide was applied for 8 seconds. Ablation was repeated in a likewise fashion at a total of four sites. No complications was observed at the conclusion of therapy. The areas of the esophagus where Haij's mucosa had been ablated were examined. Areas of visible Haji's esophagus were completely ablated. Biopsies were taken with a cold forceps for histology. Mucosa was biopsied with a cold forceps for histology in a targeted manner. A total of 2 specimen bottles were sent to pathology at 32 cm and 25 cm. 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 Ablated with balloon cryotherapy using nitrous oxide. Biopsied. - 5 cm hiatal hernia. - Normal stomach. - Normal first portion of the duodenum and second portion of the duodenum. Estimated Blood Loss: Estimated blood loss was minimal. Recommendation: - Await pathology results. - Resume previous diet today. - Patient has a contact number available for emergencies. The signs and symptoms of potential delayed compli (more content not included)...[id number] NoteHNO ID: [id number] Author: PAULINO GAONA SRNA Service: ? 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 SRNA: Paulino Gaona SRNA Performed by: LISETH Indications and Patient Condition Indications for airway management: anesthesia Preoxygenated: yes anesthesia circuit Patient position: sniffing Method: asleep (Mask /inhalation induction, PIV placed, smooth intubation.) Cricoid Pressure: No Manual In-Line Stabilization: No Difficult Mask: No Final Airway Details Final airway type: endotracheal airway Final Endotracheal Airway: ETT Cuffed: yes Successful intubation technique: direct laryngoscopy Endotracheal tube insertion site: oral Blade: Cobian Blade size: #2 ETT size (mm): 7.0 Measured from: lips Measurement (cm): 21 Placement verified by: chest auscultation and capnometry Cormack-Lehane Classification: grade I - full view of glottis Number of attempts at approach: 1 Airway not difficult SIGNATURE: LISETH Chavarria PATIENT NAME: Daniela Raymundo DATE: August 04, 2024 TIME: 3:18 PM CSN: [id number] NoteHNO ID: [id number] Author: PAULINO GAONA SRNA Service: ? Author Type: Student Type: Anesthesia Procedure Notes Filed: 08/04/2024 15:16 Note Text: ANESTHESIOLOGY PROCEDURE NOTE PIV General Information Procedure Start Time/Medication Administration: 08/04/2024 3:01 PM Procedure End Time: 08/04/2024 3:02 PM Patient Location: OR Staffing LEVEE SUPERINTENDENT: Tish Reece APRN.LEVEE SUPERINTENDENT Performed by: LEVEE SUPERINTENDENT Preparation Sterility Preparation: hand hygiene performed prior to procedure, sterile gloves, drapes, and procedure tray, gown used during line insertion, surgical cap used, mask used, sterile drape used during line insertion, skin prep agent completely dried prior to procedure Site Prep: alcohol Procedure Details Indication: need for IV access Needle Size/Type: 22 gauge angiocath Orientation: Right Location: Hand Imaging Guidance Used: No SIGNATURE: LISETH Chavarria PATIENT NAME: Daniela Raymundo DATE: August 04, 2024 TIME: 3:15 PM CSN: [id number]-07-[facility] History and physical note* Julieth Young MD - 08/04/2024 3:00 PM EST HISTORY AND PHYSICAL Daniela Raymundo, 79 year old female Current history and physical on file: No Is a new History and Physical required for today's visit? Yes Indication for procedure: Haji's esophagus PROCEDURE(S) SCHEDULED FOR: EGD (Esophagogastroduodenoscopy) with or without biopsies, removal of polyps or lesions, dilation (any means), treatment of bleeding ( any means), Barrx treatment of Sarthak's Esophagus, image tube placement or cryo therapy treatment based on clinical findings. BASELINE BEHAVIOR: Calm BASELINE ORIENTATION: A & O x3 All medications and allergies reviewed: Yes Skin Assessment: Warm dry mucus membranes pink Airway/Respiratory Assessment: Airway: visualization of the uvula- Yes Mouth: opening greater than 2 fingerbreadths- Yes Neck: full range of motion- Yes No increased WOB. Cardiac Assessment: Regular rate and rhythm Abdominal Assessment: Abdomen soft, non-tender, no masses or organomegaly. Sedation Plan: Moderate Additional Comments: none Julieth Young MD [facility] Work Phone: 1(683) 186-637811-07-2024 History and physical note* Julieth Young MD - 08/04/2024 3:00 PM EST HISTORY AND PHYSICAL Daniela Raymundo, 79 year old female Current history and physical on file: No Is a new History and Physical required for today's visit? Yes Indication for procedure: Haji's esophagus PROCEDURE(S) SCHEDULED FOR: EGD (Esophagogastroduodenoscopy) with or without biopsies, removal of polyps or lesions, dilation (any means), treatment of bleeding ( any means), Barrx treatment of Sarthak's Esophagus, image tube placement or cryo therapy treatment based on clinical findings. BASELINE BEHAVIOR: Calm BASELINE ORIENTATION: A & O x3 All medications and allergies reviewed: Yes Skin Assessment: Warm dry mucus membranes pink Airway/Respiratory Assessment: Airway: visualization of the uvula- Yes Mouth: opening greater than 2 fingerbreadths- Yes Neck: full range of motion- Yes No increased WOB. Cardiac Assessment: Regular rate and rhythm Abdominal Assessment: Abdomen soft, non-tender, no masses or organomegaly. 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 Requesting Provider: Procedure: Pre-Anesthesia Assessment: - Prior to the procedure, a History and Physical was performed, and patient medications and allergies were reviewed. The patient's tolerance of previous anesthesia was also reviewed. The risks and benefits of the procedure and the sedation options and risks were discussed with the patient. All questions were answered, and informed consent was obtained. Prior Anticoagulants: The patient has taken no anticoagulant or antiplatelet agents. ASA Grade Assessment: III - A patient with severe systemic disease. After reviewing the risks and benefits, the patient was deemed in satisfactory condition to undergo the procedure. After obtaining informed consent, the endoscope was passed under direct vision. Throughout the procedure, the patient's blood pressure, pulse, and oxygen saturations were monitored continuously. The Endoscope was introduced through the mouth, and advanced to the second part of duodenum. The upper GI endoscopy was accomplished with ease. The patient tolerated the procedure well. Moderate Sedation: MAC anesthesia was administered by the anesthesia team. Findings: The esophagus and gastroesophageal junction were examined with white light and narrow band imaging (NBI) from a forward view and retroflexed position. 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 These changes involved the mucosa along an irregular Z-line (32 cm from the incisors). Two tongues of salmon-colored mucosa were present from 30 to 32 cm and scattered islands of salmon-colored mucosa were present from 18 to 30 cm. The maximum longitudinal extent of these esophageal mucosal changes was 12 cm in length. The number and size of the Haji's islands had decreased. A 5 cm hiatal hernia was present. The entire examined stomach was normal. The first portion of the duodenum and second portion of the duodenum were normal. The decision was made to ablate with nitrous oxide balloon cryotherapy. Endoscopic visualization identified an ablation site including the entire visible Haji's segment that was not circumferential. The ablation catheter was inserted through the working channel of the endoscope. The first ablation area was identified. After aligning the spray diffuser with the mucosal target, liquid nitrous oxide was applied for 8 seconds. Ablation was repeated in a likewise fashion at a total of four sites. No complications was observed at the conclusion of therapy. The areas of the esophagus where Haji's mucosa had been ablated were examined. Areas of visible Haji's esophagus were completely ablated. Biopsies were taken with a cold forceps for histology. Mucosa was biopsied with a cold forceps for histology in a targeted manner. A total of 2 specimen bottles were sent to pathology at 32 cm and 25 cm. 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 Ablated with balloon cryotherapy using nitrous oxide. Biopsied. - 5 cm hiatal hernia. - Normal stomach. - Normal first portion of the duodenum and second portion of the duodenum. Estimated Blood Loss: Estimated blood loss was minimal. Recommendation: - Await pathology results. - Resume previous diet today. - Patient has a contact number available for emergencies. The signs and symptoms of potential delayed complications were discussed with the patient. Return to normal activities tomorrow. Written discharge instructions were provided to the patient. Procedure Code(s): --- Professional --- 13738 77814, 59 CPT copyright 2020 [employer]. All rights reserved. Attending Participation: I personally performed the entire procedure. Scope In: 3:09:52 PM Scope Out: 4:07:[address] Norbert Dailey MD, MPH Norbert Dailey MD 08/04/2024 4:29:29 PM This report has been signed electronically by Norbert Dailey MD Number of Addenda: 0 Note Initiated On: 08/04/2024 2:33 [facility]11-07-2024 Nurse Note* Sully Larson LPN - 08/04/2024 1:58 PM EST PRE OP LEARNING ASSESSMENT PROCEDURE/SURGERY: GI PROCEDURES: EGD READINESS TO LEARN COGNITIVE ABILITY: Alert and oriented MOTIVATION TO LEARN: Eager Interested FAMILY SUPPORT: High - Very involved in pt care PATIENT LEARNS BEST BY: Individual Instruction Written Instruction - Hand-outs Verbal Instruction FACTORS AFFECTING LEARNING: None PHYSICAL LIMITATIONS AFFECTING LEARNING: None Electronically Signed By: Sully Larson LPN In Department: GASTROENTEROLOGY [facility]10-31-2024 Telephone encounter Note* Telephone Encounter - Aleyda Vila RN - 07/28/2024 9:12 AM EDT GI Pre-Procedure Spoke with patient: Left message- Attempted to reach the patient at the contact number that they provided [phone] (home) . Unable to speak with patient so without identifying the patient the following information was left on their voice mail: Date of procedure, location and report time A message was left informing the patient/patient insurance claim representative they must have a responsible adult accompany them to their procedure; and remain in the endoscopy area until they are discharged. Failure to have a responsible adult accompany the patient to their procedure appointment prevents the useof sedation or anesthesia for their procedure; and can result in cancellation of the procedure NPO instructions were reviewed. Instructions to contact their primary care provider regarding their medications and which medications to stop in preparation for their procedure Instructions to completely read and follow the written instructions that they recieved regarding their procedure. Number to call with questions or concerns [phone] Number to call to cancel their procedure [phone] ALEYDA Vila RN [facility]10-31-2024 Miscellaneous Notes* Telephone Encounter - Aleyda Vila RN - 07/28/2024 9:12 AM EDT GI Pre-Procedure Spoke with patient: Left message- Attempted to reach the patient at the contact number that they provided [phone] (home) . Unable to speak with patient so without identifying the patient the following information was left on their voice mail: Date of procedure, location and report time A message was left informing the patient/patient insurance claim representative they must have a responsible adult accompany them to their procedure; and remain in the endoscopy area until they are discharged. Failure to have a responsible adult accompany the patient to their procedure appointment prevents the useof sedation or anesthesia for their procedure; and can result in cancellation of the procedure NPO instructions were reviewed. Instructions to contact their primary care provider regarding their medications and which medications to stop in preparation for their procedure Instructions to completely read and follow the written instructions that they recieved regarding their procedure. Number to call with questions or concerns [phone] Number to call to cancel their procedure [phone] ALEYDA Vila RN [facility] NoteEntered by CARMELA MUNSON DO on July 25, 2024 12:13:19 EDT From: CARMELA MUNSON DO To: [facility] Mail Delivery Sent: 07/25/2024 12:13:19 EDT Subject: Medication Management Submitted: Complete:levocetirizine (levocetirizine 5 mg oral tablet) Signed by CARMELA MUNSON DO 07/25/2024 12:13:00 EDT Approved with modifications: levocetirizine (Levocetirizine Dihydrochloride Oral Tablet 5 MG) TAKE 1 TABLET EVERY EVENING Qty: 90 tab(s) Days Supply: 90 Refills: 1 Substitutions Allowed Route To Pharmacy - [facility] Mail Delivery From: [email or web address] Mail Delivery To: CARMELA MUNSON DO Sent: July 25, 2024 10:18:48 AM CDT Subject: Medication Management Due: July 26, 2024 12:12:49 AM CDT On Hold Pending Signature Drug: levocetirizine (levocetirizine 5 mg oral tablet), TAKE 1 TABLET EVERY EVENING Quantity: 90 tab(s) Days Supply: 0 Refills: 1 Substitutions Allowed Notes from Pharmacy: Dispensed Drug: levocetirizine (levocetirizine 5 mg oral tablet), TAKE 1 TABLET EVERY EVENING Quantity: 90 tab(s) Days Supply: 90 Refills: 3 Substitutions Allowed [id number] Telephone encounter Note* Telephone Encounter - Suzi Garcia LPN - 07/19/2024 11:49 AM EDT Discussed medication questions with Daniela. She feels more comfortable continuing with Xanax until after her procedure as she knows how she feels on Xanax. I discussed that this was ok with us. She will contact with any other questions. Suzi Garcia LPN [facility] Work Phone: [phone]) 756-750610-22-2024 Miscellaneous Notes* Telephone Encounter - Suzi Garcia LPN - 07/19/2024 11:49 AM EDT Discussed medication questions with Daniela. She feels more comfortable continuing with Xanax until after her procedure as she knows how she feels on Xanax. I discussed that this was ok with us. She will contact with any other questions. Suzi Garcia LPN * Telephone Encounter - Carmen Caballero - 07/18/2024 3:41 PM EDT Patient called and stated that she has been given a new prescription Clonazepam 0.5 ml 3 times a day. Patient would like to know if she should wait until after her procedure on 08/03 to start taking it, due to not knowing if she will have any side- effects. Please review and advise Carmen [facility]24 Telephone encounter Note * Telephone Encounter - Carmen Caballero - 07/18/2024 3:41 PM EDT Patient called and stated that she has been given a new prescription Clonazepam 0.5 ml 3 times a day. Patient would like to know if she should wait until after her procedure on 08/03 to start taking it, due to not knowing if she will have any side- effects. Please review and advise Carmen [facility]09-16-2024 Telephone encounter Note* Telephone Encounter - Norbert Dailey MD - 06/13/2024 6:48 PM EDT I reviewed the findings of today's examination with the patient and her family. There has been steady improvement in the amount of Haji's esophagus. We will plan for another round of therapy in 8 weeks. I will also contact her with the results of the biopsies. Norbert Dailey II, MD [facility]09-16-2024 Miscellaneous Notes* Telephone Encounter - Norbert Dailey MD - 06/13/2024 6:48 PM EDT I reviewed the findings of today's examination with the patient and her family. There has been steady improvement in the amount of Haji's esophagus. We will plan for another round of therapy in 8 weeks. I will also contact her with the results of the biopsies. Norbert Dailey II, MD documented in [facility] encounterMed[facility]09-16-[facility] Nurse Note* King Canseco RN - 06/13/2024 5:29 PM EDT Report from Wayne CAR, continued care of patient. King Canseco RN 5:06 PM June 13, 2024 [facility]09-16-2024 Nurse Note* King Canseco RN - 06/13/2024 5:29 PM EDT Report from Wayne CAR, continued care of patient. King Canseco RN 5:06 PM June 13, 2024 * Wayne Geronimo RN - 06/13/2024 4:47 PM EDT AMBULATORY PATIENT EDUCATION NOTE TOPIC: GI PROCEDURES: Esophagogastroduodenoscopy(EGD) with or without biopies based on clinical findings, removal of polyps or lesions READINESS TO LEARN INSTRUCTION PROVIDED TO: Patient, readness to learn accessed prior to procedure COGNITIVE ABILITY: Alert and oriented PTED MOTIVATION TO LEARN: Interested FAMILY SUPPORT: High - Very involved in pt care IPATIENT LEARNS BEST BY: Individual Instruction Written Instruction - Hand-outs Verbal Instruction FACTORS AFFECTING LEARNING: None PHYSICAL LIMITATIONS AFFECTING LEARNING: None LEARNING RESPONSE METHOD OF INSTRUCTION: Individual instruction PATIENT / FAMILY RESPONSE: Verbalizes understanding of: WORSENING CONDITION- Signs and symptoms of aworsening condition that warrant a call to the physician FOLLOW-UP PLAN: Patient instructed to call with any further issues SUPPLEMENTAL MATERIAL: Procedure Discharge Instructions REFERRAL (RECOMMENDATION): None * Cassidy Christine RN - 06/13/2024 12:46 PM EDT PRE OP LEARNING ASSESSMENT PROCEDURE/SURGERY: GI PROCEDURES: EGD READINESS TO LEARN COGNITIVE ABILITY: Alert and oriented MOTIVATION TO LEARN: Interested FAMILY SUPPORT: High - Very involved in pt care PATIENT LEARNS BEST BY: Individual Instruction Verbal Instruction FACTORS AFFECTING LEARNING: None PHYSICAL LIMITATIONS AFFECTING LEARNING: None Electronically Signed By: Cassidy Christine RN In Department: GASTROENTEROLOGY documented in this encounterMed[facility]09-[facility] Nurse Note* Wayne Geronimo RN - 06/13/2024 4:47 PM EDT AMBULATORY PATIENT EDUCATION NOTE TOPIC: GI PROCEDURES: Esophagogastroduodenoscopy(EGD) with or without biopies based on clinical findings, removal of polyps or lesions READINESS TO LEARN INSTRUCTION PROVIDED TO: Patient, readness to learn accessed prior to procedure COGNITIVE ABILITY: Alert and oriented PTED MOTIVATION TO LEARN: Interested FAMILY SUPPORT: High - Very involved in pt care IPATIENT LEARNS BEST BY: Individual Instruction Written Instruction - Hand-outs Verbal Instruction FACTORS AFFECTING LEARNING: None PHYSICAL LIMITATIONS AFFECTING LEARNING: None LEARNING RESPONSE METHOD OF INSTRUCTION: Individual instruction PATIENT / FAMILY RESPONSE: Verbalizes understanding of: WORSENING CONDITION- Signs and symptoms of aworsening condition that warrant a call to the physician FOLLOW-UP PLAN: Patient instructed to call with any further issues SUPPLEMENTAL MATERIAL: Procedure Discharge Instructions REFERRAL (RECOMMENDATION): None [facility]09-16-2024 NoteQ3 Patient Name: Daniela Raymundo Procedure Date: 06/13/2024 2:10 PM Date of : 1945 Admit Type: Outpatient Age: 79 Gender: Female Note Status: Finalized Attending MD: Norbert Dailey MD, [id number] Procedure: Upper GI endoscopy Indications: Follow-up of previous cryo-ablation therapy with liquid nitrogen of Haji's esophagus Providers: Norbert Dailey MD Referring Physician: Norbert Dailey MD (Referring MD) Medicines: Monitored Anesthesia Care Complications: No immediate complications. Requesting Provider: Procedure: Pre-Anesthesia Assessment: - Prior to the procedure, a History and Physical was performed, and patient medications and allergies were reviewed. The patient's tolerance of previous anesthesia was also reviewed. The risks and benefits of the procedure and the sedation options and risks were discussed with the patient. All questions were answered, and informed consent was obtained. Prior Anticoagulants: The patient has taken no anticoagulant or antiplatelet agents. ASA Grade Assessment: III - A patient with severe systemic disease. After reviewing the risks and benefits, the patient was deemed in satisfactory condition to undergo the procedure. After obtaining informed consent, the endoscope was passed under direct vision. Throughout the procedure, the patient's blood pressure, pulse, and oxygen saturations were monitored continuously. The Endoscope was introduced through the mouth, and advanced to the second part of duodenum. The upper GI endoscopy was accomplished with ease. The patient tolerated the procedure well. Moderate Sedation: MAC anesthesia was administered by the anesthesia team. Findings: The Z-line was irregular and was found 32 cm from the incisors. The esophagus and gastroesophageal junction were examined with white light and narrow band imaging (NBI) from a forward view and retroflexed position. 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 These changes involved the mucosa at the upper extent of the gastric folds (32 cm from the incisors) extending to the Z-line (32 cm from the incisors). Two tongues of salmon-colored mucosa were present from 31 to 32 cm and scattered islands of salmon-colored mucosa were present from 16 to 25 cm. The maximum longitudinal extent of these esophageal mucosal changes was 12 cm in length. The decision was made to ablate with nitrous oxide balloon cryotherapy. Endoscopic visualization identified an ablation site including the entire visible Haji's segment that was not circumferential. The ablation catheter was inserted through the working channel of the endoscope. The first ablation area was identified. After aligning the spray diffuser with the mucosal target, liquid nitrous oxide was applied for 8 seconds. Ablation was repeated in a likewise fashion at a total of six sites. No complications was observed at the conclusion of therapy. The areas of the esophagus where Haji's mucosa had been ablated were examined. Areas of visible Haji's esophagus were completely ablated. Mucosa was biopsied with a cold forceps for histology in a targeted manner (32, 25 and 16 cm). A total of 3 specimen bottles were sent to pathology. A 5 cm hiatal hernia was present. The entire examined stomach was normal. The first portion of the duodenum and second portion of the duodenum were normal. Impression: - Z-line irregular, 32 cm from the incisors. - Esophageal mucosal changes classified as Haji's stage C0-M12 per Central criteria. Ablated with balloon cryotherapy using nitrous oxide. Biopsied. - 5 cm hiatal hernia. - Normal stomach. - Normal first portion of the duodenum and second portion of the duodenum. Estimated Blood Loss: Estimated blood loss was minimal. Recommendation: - Discharge patient to home (ambulatory). - Resume previous diet PRN. - Await pathology results. - Repeat upper endoscopy in 8 weeks for (more content not included)...[id number] NoteHNO ID: [id number] Author: TEMO DAVIS APRN.LEVEE SUPERINTENDENT Service: ? Author Type: Nurse Radiation Protection Technician Type: Anesthesia Procedure Notes Filed: 06/13/2024 15:07 Note Text: ANESTHESIOLOGY PROCEDURE NOTE PIV General Information Procedure Start Time/Medication Administration: 06/13/2024 2:51 PM Procedure End Time: 06/13/2024 2:51 PM Patient Location: OR Staffing LEVEE SUPERINTENDENT: Temo Davis APRN.LEVEE SUPERINTENDENT Performed by: LEVEE SUPERINTENDENT Preparation Sterility Preparation: hand hygiene performed prior to procedure, surgical cap used, mask used, skin prep agent completely dried prior to procedure Site Prep: alcohol Procedure Details Indication: need for IV access Needle Size/Type: 20 gauge angiocath Orientation: Left Location: Forearm Imaging Guidance Used: No SIGNATURE: Temo Davis APRN.LEVEE SUPERINTENDENT PATIENT NAME: Daniela Raymundo DATE: June 13, 2024 TIME: 3:06 PM CSN: [id number] [facility]09-16-[facility] NoteHNO ID: [id number] Author: TEMO DAVIS APRN.LEVEE SUPERINTENDENT Service: ? Author Type: Nurse Radiation Protection Technician Type: Anesthesia Procedure Notes Filed: 06/13/2024 15:02 Note Text: ANESTHESIOLOGY PROCEDURE NOTE Airway General Information Procedure Start Time/Medication Administration: 06/13/2024 2:54 PM Procedure End Time: 06/13/2024 3:54 PM Patient location during procedure: OR Timeout Performed Pre-procedure: timeout performed Consent Obtained: Yes Patient identity confirmed: arm band and patient Staffing LEVEE SUPERINTENDENT: Temo Davis APRN.LEVEE SUPERINTENDENT Performed by: CEDRIC Indications and Patient Condition Indications for airway management: anesthesia Preoxygenated: yes anesthesia circuit Patient position: sniffing Method: asleep Cricoid Pressure: No Manual In-Line Stabilization: No Difficult Mask: No Final Airway Details Final airway type: endotracheal airway Final Endotracheal Airway: ETT Cuffed: yes Successful intubation technique: video laryngoscopy Devices used: Tu Otro Super Endotracheal tube insertion site: oral Blade size: #4 ETT size (mm): 7.0 Measured from: lips Measurement (cm): 21 Placement verified by: capnometry Cormack-Lehane Classification: grade I - full view of glottis Number of attempts at approach: 1 Failed airway: no Unrecognized esophageal intubation: no Airway not difficult SIGNATURE: Temo Davis APRN.LEVEE SUPERINTENDENT PATIENT NAME: Daniela Raymundo DATE: June 13, 2024 TIME: 3:02 PM CSN: [id number] [facility] Hospital09-16-2024 NoteQ3 Patient Name: Daniela Raymundo Procedure Date: 06/13/2024 2:10 PM Date of : 1945 Admit Type: Outpatient Age: 79 Gender: Female Note Status: Finalized Attending MD: Norbert Dailey MD, [id number] Procedure: Upper GI endoscopy Indications: Follow-up of previous cryo-ablation therapy with liquid nitrogen of Haji's esophagus Providers: Norbert Dailey MD Referring Physician: Norbert Dailey MD (Referring MD) Medicines: Monitored Anesthesia Care Complications: No immediate complications. Requesting Provider: Procedure: Pre-Anesthesia Assessment: - Prior to the procedure, a History and Physical was performed, and patient medications and allergies were reviewed. The patient's tolerance of previous anesthesia was also reviewed. The risks and benefits of the procedure and the sedation options and risks were discussed with the patient. All questions were answered, and informed consent was obtained. Prior Anticoagulants: The patient has taken no anticoagulant or antiplatelet agents. ASA Grade Assessment: III - A patient with severe systemic disease. After reviewing the risks and benefits, the patient was deemed in satisfactory condition to undergo the procedure. After obtaining informed consent, the endoscope was passed under direct vision. Throughout the procedure, the patient's blood pressure, pulse, and oxygen saturations were monitored continuously. The Endoscope was introduced through the mouth, and advanced to the second part of duodenum. The upper GI endoscopy was accomplished with ease. The patient tolerated the procedure well. Moderate Sedation: MAC anesthesia was administered by the anesthesia team. Findings: The Z-line was irregular and was found 32 cm from the incisors. The esophagus and gastroesophageal junction were examined with white light and narrow band imaging (NBI) from a forward view and retroflexed position. 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 These changes involved the mucosa at the upper extent of the gastric folds (32 cm from the incisors) extending to the Z-line (32 cm from the incisors). Two tongues of salmon-colored mucosa were present from 31 to 32 cm and scattered islands of salmon-colored mucosa were present from 16 to 25 cm. The maximum longitudinal extent of these esophageal mucosal changes was 12 cm in length. The decision was made to ablate with nitrous oxide balloon cryotherapy. Endoscopic visualization identified an ablation site including the entire visible Haji's segment that was not circumferential. The ablation catheter was inserted through the working channel of the endoscope. The first ablation area was identified. After aligning the spray diffuser with the mucosal target, liquid nitrous oxide was applied for 8 seconds. Ablation was repeated in a likewise fashion at a total of six sites. No complications was observed at the conclusion of therapy. The areas of the esophagus where Haji's mucosa had been ablated were examined. Areas of visible Haji's esophagus were completely ablated. Mucosa was biopsied with a cold forceps for histology in a targeted manner (32, 25 and 16 cm). A total of 3 specimen bottles were sent to pathology. A 5 cm hiatal hernia was present. The entire examined stomach was normal. The first portion of the duodenum and second portion of the duodenum were normal. Impression: - Z-line irregular, 32 cm from the incisors. - Esophageal mucosal changes classified as Haji's stage C0-M12 per Central criteria. Ablated with balloon cryotherapy using nitrous oxide. Biopsied. - 5 cm hiatal hernia. - Normal stomach. - Normal first portion of the duodenum and second portion of the duodenum. Estimated Blood Loss: Estimated blood loss was minimal. Recommendation: - Discharge patient to home (ambulatory). - Resume previous diet PRN. - Await pathology results. - Repeat upper endoscopy in 8 weeks for surveillance. - Patient has a contact number available for emergencies. The signs and symptoms of potential delayed complications were discussed with the patient. Return to normal activities tomorrow. Written discharge instructions were provided to the patient. Procedure Code(s): --- Professional --- 25993, Esophagogastroduodenoscopy, flexible, transoral; with ablation of tumor(s), polyp(s), or other lesion(s) (includes pre- and post-dilation and guide wire passage, when performed) 29428, 59, Esophagogastroduodenoscopy, flexible, transoral; with biopsy, single or multiple CPT copyright 2020 [employer]. All rights reserved. Attending Participation: I personally performed the entire procedure. Scope In: 2:59:25 PM Scope Out: 3:19:[address] Norbert Dailey MD, MPH Norbert Dailey MD 06/13/2024 3:28:21 PM This report has been signed electronically by Norbert Dailey MD Number of Adde (more content not included)...[facility] 06-13-2024 History and physical note* Norbert Dailey MD - 06/13/2024 2:00 PM EDT HISTORY AND PHYSICAL Daniela Raymundo, 79 year old female Current history and physical on file: No Is a new History and Physical required for today's visit? Yes Indication for procedure: Barretts esophagus PROCEDURE(S) SCHEDULED FOR: EGD (Esophagogastroduodenoscopy) with or without biopsies, removal of polyps or lesions, dilation (any means), treatment of bleeding ( any means), Barrx treatment of Sarthak's Esophagus, image tube placement or cryo therapy treatment based on clinical findings. BASELINE BEHAVIOR: Calm BASELINE ORIENTATION: A & O x3 All medications and allergies reviewed: Yes Skin Assessment: Warm dry mucus membranes pink Airway/Respiratory Assessment: Airway: visualization of the uvula- Yes Mouth: opening greater than 2 fingerbreadths- Yes Neck: full range of motion- Yes Breath sounds clear/equal- Yes Cardiac Assessment: Regular rate and rhythm without murmur Abdominal Assessment: Abdomen soft, non-tender, no masses or organomegaly. Sedation Plan: MAC Additional Comments: None Norbert Dailey II, MD [facility] Work Phone: [phone] 659-651709-16-2024 History and physical note* Norbert Dailey MD - 06/13/2024 2:00 PM EDT HISTORY AND PHYSICAL Daniela Raymundo, 79 year old female Current history and physical on file: No Is a new History and Physical required for today's visit? Yes Indication for procedure: Barretts esophagus PROCEDURE(S) SCHEDULED FOR: EGD (Esophagogastroduodenoscopy) with or without biopsies, removal of polyps or lesions, dilation (any means), treatment of bleeding ( any means), Barrx treatment of Sarthak's Esophagus, image tube placement or cryo therapy treatment based on clinical findings. BASELINE BEHAVIOR: Calm BASELINE ORIENTATION: A & O x3 All medications and allergies reviewed: Yes Skin Assessment: Warm dry mucus membranes pink Airway/Respiratory Assessment: Airway: visualization of the uvula- Yes Mouth: opening greater than 2 fingerbreadths- Yes Neck: full range of motion- Yes Breath sounds clear/equal- Yes Cardiac Assessment: Regular rate and rhythm without murmur Abdominal Assessment: Abdomen soft, non-tender, no masses or organomegaly. Sedation Plan: [facility] [place] Additional Comments: None Norbert Dailey II, MD documented in this encounterMedina Hospital09-16-[facility]24 Nurse Note* Cassidy Christine RN - 06/13/2024 12:46 PM EDT PRE OP LEARNING ASSESSMENT PROCEDURE/SURGERY: GI PROCEDURES: EGD READINESS TO LEARN COGNITIVE ABILITY: Alert and oriented MOTIVATION TO LEARN: Interested FAMILY SUPPORT: High - Very involved in pt care PATIENT LEARNS BEST BY: Individual Instruction Verbal Instruction FACTORS AFFECTING LEARNING: None PHYSICAL LIMITATIONS AFFECTING LEARNING: None Electronically Signed By: Cassidy Christine RN In Department: GASTROENTEROLOGY [facility]09-10-2024 History of Present illness Narrative* Michele Sol, DO - 06/07/2024 11:00 AM EDT Subjective Daniela Raymundo is a 79 y.o. female Chief Complaint Annual Exam 79-year-old female here for annual follow-up, doing very well from a cardiovascular standpoint withno angina, heart failure, hospitalizations or nitrate usage. She also has paroxysmal atrial fibrillation, currently in a stable regular rhythm. She does have mild exertional dyspnea. She has had no bl eeding or thromboembolic events. She is about to undergo her final esophageal ablation with Dr. Norbert Dailey at [facility] for history of extensive Haji's esophagus. Again from cardiovascular standpoint she has been asymptomatic and stable with NYHA class I-2 Recommendations, continue current therapies, follow-up in 1 year; instructions for holding DOAC prior to ablation Review of Systems Cardiovascular: Positive for dyspnea on exertion. All other systems reviewed and are negative. Vitals: 06/07/24 1107 BP: 100/60 BP Location: Left arm Patient Position: Sitting Pulse: 64 Weight: 66.7 kg (147 lb) Height: 1.6 m (5' 3 ) Objective Physical Exam Constitutional: Appearance: Normal appearance. HENT: Nose: Nose normal. Neck: Vascular: No carotid bruit. Cardiovascular: Rate and Rhythm: Normal rate. Pulses: Normal pulses. Heart sounds: Normal heart sounds. Pulmonary: Effort: Pulmonary effort is normal. Abdominal: General: Bowel sounds are normal. Palpations: Abdomen is soft. Musculoskeletal: General: Normal range of motion. Cervical back: Normal range of motion. Right lower leg: No edema. Left lower leg: No edema. Skin: General: Skin is warm and dry. Neurological: General: No focal deficit present. Mental Status: She is alert. Psychiatric: Mood and Affect: Mood normal. Behavior: Behavior normal. Thought Content: Thought content normal. Judgment: Judgment normal. Allergies Metoprolol, Osbaldo inhibitors, Ezetimibe, and Imnflxi-nrn-bra reductase inhibitors Current Medications Current Outpatient Medications: ALPRAZolam (Xanax) 0.5 mg tablet, Take 1 tablet (0.5 mg) by mouth as needed at bedtime., Disp: , Rfl: apixaban (Eliquis) 5 mg tablet, Take 1 tablet (5 mg) by mouth 2 times a day., Disp: , Rfl: aspirin 81 mg EC tablet, Take 1 tablet (81 mg) by mouth 3 times a week. Take one tablet by mouth every Thursday, Thursday, and Thursday, Disp: , Rfl: esomeprazole (NexIUM) [address] capsule, Take 1 capsule (40 mg) by mouth 2 times a day., Disp: , Rfl: fluticasone (Flonase) 50 mcg/actuation nasal spray, Administer into affected nostril(s)., Disp: , Rfl: furosemide (Lasix) 40 mg tablet, Take 1 tablet (40 mg) by mouth once daily., Disp: , Rfl: glucosamine-chondroitin 500-400 mg tablet, Take 2 tablets by mouth once daily., Disp: , Rfl: levocetirizine (Xyzal) 5 mg tablet, See Instructions, Instructions: TAKE 1 TABLET EVERY EVENING, # 90 tab(s), 1 Refill(s), Pharmacy: [facility], TAKE 1 TABLET EVERY EVENING, 160.02, cm, 06/24/23 13:08:00 EDT, Height, Disp: , Rfl: levothyroxine (Synthroid, Levoxyl) 75 mcg tablet, Take 1 tablet (75 mcg) by mouth. 1 tablet 6 days a week, Disp: , Rfl: losartan (Cozaar) 25 mg tablet, Take 1 tablet (25 mg) by mouth once daily., Disp: 90 tablet, Rfl: 3 magnesium oxide (Mag-Ox) 400 mg tablet, Take 1 tablet (400 mg) by mouth once daily., Disp: , Rfl: pitavastatin calcium (Livalo) 2 mg tablet, Take 1 tablet by mouth once daily., Disp: , Rfl: potassium citrate 99 mg capsule, Take 1 tablet by mouth 3 times a day., Disp: , Rfl: SITagliptin phosphate (Januvia) 100 mg tablet, Take 1 tablet (100 mg) by mouth once daily., Disp: ,Rfl: Assessment/Plan 1. Atherosclerosis of coronary artery bypass graft without angina pectoris, unspecified whether chilkat or transplanted heart Follow Up In Cardiology 2. Hx of CABG 3. Essential hypertension 4. Mixed hyperlipidemia 5. Paroxysmal atrial fibrillation (Multi) 6. Haji's esophagus with dysplasia 7. Gastroesophageal reflux disease, unspecified whether esophagitis present 8. TIA (transient ischemic attack) 9. Mitral valve insufficiency, unspecified etiology 10. Type 2 diabetes mellitus without complication, without long-term current use of insulin (Multi) 11. Essential tremor 12. Overweight with body mass index (BMI) of 26 to 26.9 in adult 13. Former smoker Scribe Attestation By signing my name below, Leonela DavisZamzam ARMAS , Scribjaycob attest that this documentation has been prepared under the direction and in the presence of Lady Sol DO. Provider Attestation - Scribe documentation All medical record entries made by the Scribe were at my direction and personally dictated by me. Ihave reviewed the chart and agree that the record accurately reflects my personal performance of the history, physical exam, discussion and plan. [facility] Work Phone: [phone]) 972-626409-10-2024 Instructions* Patient Instructions* Leonela Butt LPN - 06/07/2024 11:00 AM EDT Please bring all medicines, vitamins, and herbal supplements with you when you come to the office. Prescriptions will not be filled unless you are compliant with your follow up appointments or have a follow up appointment scheduled as per instruction of your physician. Refills should be requested at the time of your visit. BMI was above normal measurement. Current weight: 66.7 kg (147 lb) Weight change since last visit (-) denotes wt loss 3 lbs Weight loss needed to achieve BMI 25: 6.2 Lbs Weight loss needed to achieve BMI 30: -22 Lbs Provided instructions on dietary changes. * Attachments The following attachments cannot be sent through Care Everywhere. * Heart Healthy Diet (Afghan) [facility] Work Phone: [phone]) 921-148407-15-2024 Telephone encounter Note* Telephone Encounter - Norbert Dailey MD - 04/11/2024 2:16 PM EDT Orders placed. Thank you [facility]07-15-2024 Miscellaneous Notes* Telephone Encounter - Norbert Dailey MD - 04/11/2024 2:16 PM EDT Orders placed. Thank you * Telephone Encounter - Norbert Dailey MD - 04/11/2024 2:14 PM EDT Orders placed for repeat EGD with cryotherapy in 8 weeks * Telephone Encounter - Ofelia Quinn - 04/11/2024 12:49 PM EDT Patient called to inquire about placing an order for a repeat EGD with Dr. Dailey for 8 weeks from 04/07/24. Please advise Thanks Ofelia documented in this encounterMedina Hospital07-15-2024 Telephone encounter Note * Telephone Encounter - Norbert Dailey MD - 04/11/2024 2:14 PM EDT Orders placed for repeat EGD with cryotherapy in 8 weeks [facility]07-15-2024 Telephone encounter Note* Telephone Encounter - Ofelia Quinn - 04/11/2024 12:49 PM EDT Patient called to inquire about placing an order for a repeat EGD with Dr. Dailey for 8 weeks from 04/07/24. Please advise Thanks Ofelia [facility]07-11-2024 Nurse Note* Otilia Barrera LPN - 04/07/2024 5:16 PM EDT AMBULATORY PATIENT EDUCATION NOTE TOPIC: GI PROCEDURES: Esophagogastroduodenoscopy(EGD) with or without biopies based on clinical findings, removal of polyps or lesions READINESS TO LEARN INSTRUCTION PROVIDED TO: Patient, readness to learn accessed prior to procedure COGNITIVE ABILITY: Alert and oriented PTED MOTIVATION TO LEARN: Interested FAMILY SUPPORT: High - Very involved in pt care IPATIENT LEARNS BEST BY: Individual Instruction FACTORS AFFECTING LEARNING: None PHYSICAL LIMITATIONS AFFECTING LEARNING: None LEARNING RESPONSE METHOD OF INSTRUCTION: Individual instruction PATIENT / FAMILY RESPONSE: Verbalizes understanding of: WORSENING CONDITION- Signs and symptoms of aworsening condition that warrant a call to the physician FOLLOW-UP PLAN: Patient instructed to call with any further issues SUPPLEMENTAL MATERIAL: Procedure Discharge Instructions REFERRAL (RECOMMENDATION): None Electronically Signed By: Otilia Barrera LPN [facility]07-11-2024 Nurse Note* Otilia Barrera LPN - 04/07/2024 5:16 PM EDT AMBULATORY PATIENT EDUCATION NOTE TOPIC: GI PROCEDURES: Esophagogastroduodenoscopy(EGD) with or without biopies based on clinical findings, removal of polyps or lesions READINESS TO LEARN INSTRUCTION PROVIDED TO: Patient, readness to learn accessed prior to procedure COGNITIVE ABILITY: Alert and oriented PTED MOTIVATION TO LEARN: Interested FAMILY SUPPORT: High - Very involved in pt care IPATIENT LEARNS BEST BY: Individual Instruction FACTORS AFFECTING LEARNING: None PHYSICAL LIMITATIONS AFFECTING LEARNING: None LEARNING RESPONSE METHOD OF INSTRUCTION: Individual instruction PATIENT / FAMILY RESPONSE: Verbalizes understanding of: WORSENING CONDITION- Signs and symptoms of aworsening condition that warrant a call to the physician FOLLOW-UP PLAN: Patient instructed to call with any further issues SUPPLEMENTAL MATERIAL: Procedure Discharge Instructions REFERRAL (RECOMMENDATION): None Electronically Signed By: Otilia Barrera LPN documented in this encounterMedina Hospital07-11-2024 NoteQ3 Patient Name: Daniela Raymundo Procedure Date: 04/07/2024 3:38 PM Date of : 1945 Admit Type: Outpatient Age: 79 Gender: Female Note Status: Finalized Attending MD: Norbert Dailey MD, [id number] Procedure: Upper GI endoscopy Indications: 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 Requesting Provider: Procedure: Pre-Anesthesia Assessment: - Prior to the procedure, a History and Physical was performed, and patient medications and allergies were reviewed. The patient's tolerance of previous anesthesia was also reviewed. The risks and benefits of the procedure and the sedation options and risks were discussed with the patient. All questions were answered, and informed consent was obtained. Prior Anticoagulants: The patient has taken no anticoagulant or antiplatelet agents. ASA Grade Assessment: III - A patient with severe systemic disease. After reviewing the risks and benefits, the patient was deemed in satisfactory condition to undergo the procedure. After obtaining informed consent, the endoscope was passed under direct vision. Throughout the procedure, the patient's blood pressure, pulse, and oxygen saturations were monitored continuously. The Endoscope was introduced through the mouth, and advanced to the second part of duodenum. The upper GI endoscopy was accomplished with ease. The patient tolerated the procedure well. Moderate Sedation: MAC anesthesia was administered by the anesthesia team. Findings: The esophagus and gastroesophageal junction were examined with white light and narrow band imaging (NBI) from a forward view and retroflexed position. There were esophageal mucosal changes classified as Haji's stage C0-M9 per Central criteria. These changes involved the mucosa at the upper extent of the gastric folds (33 cm from the incisors) extending to the Z-line (33 cm from the incisors). Two tongues of salmon-colored mucosa were present from 32 to 33 cm and scattered islands of salmon-colored mucosa were present from 23 to 32 cm. The maximum longitudinal extent of these esophageal mucosal changes was 10 cm in length. A 5 cm hiatal hernia was present. The entire examined stomach was normal. The first portion of the duodenum and second portion of the duodenum were normal. The decision was made to ablate with spray cryotherapy. Endoscopic visualization identified an ablation site including the entire visible Haji's segment that was not circumferential. A guidewire was placed in the stomach and the endoscope was removed. Ventilation tubing was inserted over the guidewire, and the wire removed. A clear cap was fitted to the distal tip of the endoscope. The endoscope was reinserted and the ablation catheter was inserted via the working channel. A total of five sites were ablated. Liquid nitrogen cryogen was applied for 20 seconds after the appearance of a frosting effect across the target zone. Suction-aided ventilation of gases through the ventilation tubing continued throughout the process continuously. tThe ablated area was allowed to thaw for 30 seconds. Ablation was repeated in a likewise fashion at each site for a total of two cycles. Ablation details as follows: Site 1: circumferential pattern at 33 cm from the incisors. Site 2: left jordon-circumferential pattern at 30 cm from the incisors. Site 3: left jordon-circumferential pattern at 27 cm from the incisors. Site 4: circumferential pattern at 23 cm from the incisors. Site 4: posterior wall jordon-circumferential pattern at 21 cm from the incisors. No complications was observed at the conclusion of therapy. The ventilation tubing was removed. The areas of the esophagus where Haji's mucosa had been ablated were examined. Reddish changes indicative of ablated mucosa were present. Biopsies were taken with a cold forceps for histology. Impression: - Esophageal mucosal changes classified as Haji's stage C0-M9 per Central criteria. Ablated (more content not included)...[id number] History and physical note* Jarvis Hickey MD - 04/07/2024 2:00 PM EDT HISTORY AND PHYSICAL Daniela Raymundo, 79 year old female Current history and physical on file: Yes Is a new History and Physical required for today's visit? Yes Indication for procedure: Haji's esophagus PROCEDURE(S) SCHEDULED FOR: EGD (Esophagogastroduodenoscopy) with or without biopsies, removal of polyps or lesions, dilation (any means), treatment of bleeding ( any means), Barrx treatment of Sarthak's Esophagus, image tube placement or cryo therapy treatment based on clinical findings. BASELINE BEHAVIOR: Calm BASELINE ORIENTATION: A & O x3 All medications and allergies reviewed: Yes Skin Assessment: Warm dry mucus membranes pink Airway/Respiratory Assessment: Airway: visualization of the uvula- Yes Mouth: opening greater than 2 fingerbreadths- Yes Neck: full range of motion- Yes Breath sounds clear/equal- Yes Cardiac Assessment: Regular rate and rhythm without murmur Abdominal Assessment: Abdomen soft, non-tender, no masses or organomegaly. Sedation Plan: MAC Additional Comments: None Jarvis Hickey MD [facility] Work Phone: [phone] History and physical note* Jarvis Hickey MD - 04/07/2024 2:00 PM EDT HISTORY AND PHYSICAL Daniela Raymundo, 79 year old female Current history and physical on file: Yes Is a new History and Physical required for today's visit? Yes Indication for procedure: Haji's esophagus PROCEDURE(S) SCHEDULED FOR: EGD (Esophagogastroduodenoscopy) with or without biopsies, removal of polyps or lesions, dilation (any means), treatment of bleeding ( any means), Barrx treatment of Sarthak's Esophagus, image tube placement or cryo therapy treatment based on clinical findings. BASELINE BEHAVIOR: Calm BASELINE ORIENTATION: A & O x3 All medications and allergies reviewed: Yes Skin Assessment: Warm dry mucus membranes pink Airway/Respiratory Assessment: Airway: visualization of the uvula- Yes Mouth: opening greater than 2 fingerbreadths- Yes Neck: full range of motion- Yes Breath sounds clear/equal- Yes Cardiac Assessment: Regular rate and rhythm without murmur Abdominal Assessment: Abdomen soft, non-tender, no masses or organomegaly. Sedation Plan: MAC Additional Comments: None Jarvis Hickey MD documented in this encounterMedina Hospital05-29-2024 NoteEntered by CARMELA MUNSON DO on February 24, 2024 07:31:46 EDT From: CARMELA MUNSON DO To: [facility] Sent: 02/24/2024 07:31:46 EDT Subject: Medication Management Submitted: Complete:levocetirizine (levocetirizine 5 mg oral tablet) Signed by CARMELA MUNSON DO 02/24/2024 07:31:00 EDT Approved with modifications: levocetirizine (LEVOCETIRIZINE DIHYDROCHLORIDE 5 MG Tablet) TAKE 1 TABLET EVERY EVENING Qty: 90 tab(s) Days Supply: 90 Refills: 1 Substitutions Allowed Route To Pharmacy - [facility] Patient matched by CARMELA MUNSON DO on 02/24/2024 07:31:23 EDT From: [facility] To: CARMELA MUNSON DO Sent: February 24, 2024 1:39:07 AM CDT Subject: Medication Management Due: February 25, 2024 12:07:50 AM CDT On Hold Pending Signature Drug: levocetirizine (levocetirizine 5 mg oral tablet), TAKE 1 TABLET EVERY EVENING Quantity: 90 tab(s) Days Supply: 0 Refills: 1 Substitutions Allowed Notes from Pharmacy: Dispensed Drug: levocetirizine (levocetirizine 5 mg oral tablet), TAKE 1 TABLET EVERY EVENING Quantity: 90 tab(s) Days Supply: 90 Refills: 3 Substitutions [facility]owed [id number] Note Entered by Rachele Pascual on January 11, 2024 08:58:28 EDT From: Rachele Pascual To: [facility] Sent: 01/11/2024 08:58:28 EDT Subject: Medication Management Submitted: Order:[employer] for Prescription (ACCU-CHEK FASTCLIX LANCETS ) See Instructions TEST BLOOD SUGAR EVERY DAY AND NEEDED Qty: 204 EA Days Supply: 90 Refills: 3 Substitutions Allowed Route To Pharmacy - [facility] Signed by Rachele Pascual 01/11/2024 08:58:00 EDT Not Approved: New Rx to follow [employer] for Prescription (ACCU-CHEK FASTCLIX LANCETS ) TEST BLOOD SUGAR EVERY DAYAND NEEDED Qty: 204 EA Days Supply: 90 Refills: 3 Substitutions Allowed Route To Pharmacy - [facility] Signed by Rachele Pascual From: [facility] To: Jessica GUTIERREZ, Fortunato Hugo MD Sent: January 10, 2024 10:47:57 AM CDT Subject: Medication Management Due: January 11, 2024 12:26:14 AM CDT On Hold Pending Signature Drug: ACCU-CHEK FASTCLIX LANCETS , TEST BLOOD SUGAR EVERY DAY AND NEEDED Quantity: EA Days Supply: 0 Refills: 3 Substitutions Allowed Notes from Pharmacy: Dispensed Drug: ACCU-CHEK FASTCLIX LANCETS , TEST BLOOD SUGAR EVERY DAY AND NEEDED Quantity: EA Days Supply: 90 Refills: 3 Substitutions Allowed [id number] Note Entered by CARMELA MUNSON DO on January 06, 2024 07:45:09 EDT From: CARMELA MUNSON DO To: [facility] Sent: 01/06/2024 07:45:09 EDT Subject: Medication Management Submitted: Complete:SITagliptin (Januvia 100 mg oral tablet) Signed by CARMELA MUNSON DO 01/06/2024 07:45:00 EDT Approved with modifications: SITagliptin (JANUVIA 100 MG Tablet) TAKE 1 TABLET EVERY DAY Qty: 90 tab(s) Days Supply: 90 Refills: 3 Substitutions Allowed Route To Pharmacy - [facility] Patient matched by CARMELA MUNSON DO on 01/06/2024 07:44:47 EDT From: [facility] To: CARMELA MUNSON DO Sent: January 06, 2024 2:01:38 AM CDT Subject: Medication Management Due: January 07, 2024 12:10:32 AM CDT On Hold Pending Signature Drug: SITagliptin (Januvia 100 mg oral tablet), TAKE 1 TABLET EVERY DAY Quantity: 90 tab(s) Days Supply: 0 Refills: 6 Substitutions Allowed Notes from Pharmacy: Dispensed Drug: SITagliptin (Januvia 100 mg oral tablet), TAKE 1 TABLET EVERY DAY Quantity: 90 tab(s) Days Supply: 90 Refills: 3 Substitutions Allowed [id number] Miscellaneous Notes* Telephone Encounter - Norbert Dailey MD - 01/04/2024 10:25 AM EDT I spoke to Mrs. Montgomery regarding the results of the biopsies. 1 set revealed no evidence of dysplasia in the setting of Haji's esophagus and the other revealed indefinite for dysplasia. She is doing well following her ablative procedure. I will put orders in for another round of therapy and 8 to 10 weeks. Norbert Dailey II, MD documented in this encounterMedina Hospital04-04-2024 Nurse Note* Malaika Pollard RN - 12/31/2023 2:44 PM EDT AMBULATORY PATIENT EDUCATION NOTE TOPIC: GI PROCEDURES: Esophagogastroduodenoscopy(EGD) with or without biopies based on clinical findings, removal of polyps or lesions READINESS TO LEARN INSTRUCTION PROVIDED TO: Patient, readness to learn accessed prior to procedure and Patient and family member COGNITIVE ABILITY: Alert and oriented PTED MOTIVATION TO LEARN: Eager Interested FAMILY SUPPORT: High - Very involved in pt care IPATIENT LEARNS BEST BY: Individual Instruction Written Instruction - Hand-outs Verbal Instruction FACTORS AFFECTING LEARNING: None PHYSICAL LIMITATIONS AFFECTING LEARNING: None LEARNING RESPONSE METHOD OF INSTRUCTION: Individual instruction PATIENT / FAMILY RESPONSE: Verbalizes understanding of: WORSENING CONDITION- Signs and symptoms of aworsening condition that warrant a call to the physician FOLLOW-UP PLAN: Recommend - Recommend continued instruction and follow up as directed Contact information given. SUPPLEMENTAL MATERIAL: Procedure Discharge Instructions REFERRAL (RECOMMENDATION): None Electronically Signed By: Malaika Pollard RN documented in this encounterMedina Hospital04-04-2024 History and physical note * Norbert Dailey MD - 12/31/2023 1:00 PM EDT HISTORY AND PHYSICAL Daniela Raymundo, 78 year old female Current history and physical on file: No Is a new History and Physical required for today's visit? Yes Indication for procedure: Haji's esophagus PROCEDURE(S) SCHEDULED FOR: EGD (Esophagogastroduodenoscopy) with or without biopsies, removal of polyps or lesions, dilation (any means), treatment of bleeding ( any means), Barrx treatment of Sarthak's Esophagus, image tube placement or cryo therapy treatment based on clinical findings. BASELINE BEHAVIOR: Calm BASELINE ORIENTATION: A & O x3 All medications and allergies reviewed: Yes Skin Assessment: Warm dry mucus membranes pink Airway/Respiratory Assessment: Airway: visualization of the uvula- Yes Mouth: opening greater than 2 fingerbreadths- Yes Neck: full range of motion- Yes Breath sounds clear/equal- Yes Cardiac Assessment: Regular rate and rhythm without murmur Abdominal Assessment: Abdomen soft, non-tender, no masses or organomegaly. Sedation Plan: MAC Additional Comments: None Norbert Dailey II, MD documented in this encounterMedina Hospital03-25-2024 Miscellaneous Notes* Telephone Encounter - Felecia Hawkins MA - 12/21/2023 8:15 AM EDT Patient has been identified by name and date of : Yes Last office visit in this department: 09-09-22 Requested Prescriptions Pending Prescriptions Disp Refills esomeprazole (NEXIUM) 40 mg capsule [Pharmacy Med Name: ESOMEPRAZOLE MAGNESIUM 40 MG Capsule Delayed Release] 180 capsule 3 Sig: TAKE 1 CAPSULE TWICE DAILY Please review and advise. Felecia Hawkins MA documented in this encounterMedina Hospital03-11-2024 NoteEntered by Rachele Pascual on December 07, 2023 08:49:25 EDT From: Rachele Pascual To: [facility] Mail Delivery Sent: 12/07/2023 08:49:25 EDT Subject: Medication Management Submitted: Order:furosemide (furosemide 40 mg oral tablet) See Instructions TAKE 1 TABLET EVERY DAY Qty: 90 tab(s) Days Supply: 90 Refills: 3 Substitutions Allowed Route To Pharmacy - [facility] Mail Delivery Signed by Rachele Pascual 12/07/2023 08:49:00 EDT Submitted: Complete:furosemide (furosemide 40 mg oral tablet) Signed by Rachele Pascual 12/07/2023 08:49:00 EDT Not Approved: New Rx to follow furosemide (FUROSEMIDE 40 MG Tablet) TAKE 1 TABLET EVERY DAY Qty: 90 tab(s) Days Supply: 90 Refills: 3 Substitutions Allowed Route To [facility] Mail Delivery Signed by Rachele Pascual Patient matched by Rachele Pascual on 12/07/2023 08:48:58 EDT From: [facility] Mail Delivery To: Jessica GUTIERREZ, Fortunato Hugo MD Sent: December 07, 2023 1:53:13 AM CDT Subject: Medication Management Due: December 08, 2023 12:08:51 AM CDT On Hold Pending Signature Drug: furosemide (furosemide 40 mg oral tablet), TAKE 1 TABLET EVERY DAY Quantity: 90 tab(s) Days Supply: 0 Refills: 3 Substitutions Allowed Notes from Pharmacy: Dispensed Drug: furosemide (furosemide 40 mg oral tablet), TAKE 1 TABLET EVERY DAY Quantity: 90 tab(s) Days Supply: 90 Refills: 3 Substitutions Allowed [id number] History of Present illness Narrative* Michele Sol, DO - 08/04/2023 3:20 PM EST Subjective Daniela Raymundo is a 78 y.o. female Chief Complaint Annual Exam 78-year-old female returns for annual follow-up and she is doing well. She has had multiple esophageal ablations with Dr. Norbert Dailey at [facility], and is done very well. She has been on and off Eliquis during these episodes with no bleeding diathesis or complications, no history of cerebrovascular eventsor stroke or recurrence of clinical paroxysmal A-fib She denies any angina, heart failure or cardiovascular events or hospitalizations or nitrate usage She has a history of remote CABG, paroxysmal A-fib. Lexiscan stress imaging from November 2022 revealed small inferior scar with no independent areas of ischemia with normal left ventricular function. We have treated her conservatively since 2010 CABG Recommendations: Continue current therapies, we did discuss at length with her and her the potential for Watchman device intervention if she is to continuously go on and off her Eliquis; at least introduced the concept. However, she has not had any GI bleeding or transfusions. At this pointshe only has a few more ablations to go, if she were to ever have GI bleed or need for transfusion at that point we may consider pulling the trigger on a Watchman device in the future. We will follow-up in 1 year. Review of Systems All other systems reviewed and are negative. Visit Vitals BP 122/64 (BP Location: Right arm, Patient Position: Sitting) Pulse 60 Ht 1.6 m (5' 3 ) Wt 65.3 kg (144 lb) BMI 25.51 kg/m Smoking Status Former BSA 1.7 m Objective Physical Exam Constitutional: Appearance: Normal appearance. She is normal weight. HENT: Nose: Nose normal. Neck: Vascular: No carotid bruit. Cardiovascular: Rate and Rhythm: Normal rate. Pulses: Normal pulses. Heart sounds: Normal heart sounds. Pulmonary: Effort: Pulmonary effort is normal. Abdominal: General: Bowel sounds are normal. Palpations: Abdomen is soft. Genitourinary: Rectum: Normal. Musculoskeletal: General: Normal range of motion. Cervical back: Normal range of motion. Right lower leg: No edema. Left lower leg: No edema. Skin: General: Skin is warm and dry. Neurological: General: No focal deficit present. Mental Status: She is alert. Psychiatric: Mood and Affect: Mood normal. Behavior: Behavior normal. Thought Content: Thought content normal. Judgment: Judgment normal. Current Medications Current Outpatient Medications: ALPRAZolam (Xanax) 0.5 mg tablet, Take 1 tablet (0.5 mg) by mouth as needed at bedtime., Disp: , Rfl: apixaban (Eliquis) 5 mg tablet, Take 1 tablet (5 mg) by mouth 2 times a day., Disp: , Rfl: aspirin 81 mg EC tablet, Take 1 tablet (81 mg) by mouth 3 times a week. Take one tablet by mouth every Thursday, Thursday, and Thursday, Disp: , Rfl: coenzyme Q-10 200 mg capsule, Take 1 capsule (200 mg) by mouth once daily., Disp: , Rfl: cyanocobalamin (Vitamin B-12) 100 mcg tablet, Take 1 tablet (100 mcg) by mouth once daily., Disp: ,Rfl: esomeprazole (NexIUM) [address] capsule, Take 1 capsule (40 mg) by mouth 2 times a day., Disp: , Rfl: fluticasone (Flonase) 50 mcg/actuation nasal spray, Administer into affected nostril(s)., Disp: , Rfl: furosemide (Lasix) 40 mg tablet, Take 1 tablet (40 mg) by mouth once daily., Disp: , Rfl: levothyroxine (Synthroid, Levoxyl) 75 mcg tablet, Take 1 tablet (75 mcg) by mouth once daily., Disp: , Rfl: loratadine (Claritin Reditabs) 10 mg disintegrating tablet, Take 1 tablet (10 mg) by mouth once daily., Disp: , Rfl: losartan (Cozaar) 25 mg tablet, Take 1 tablet (25 mg) by mouth once daily., Disp: , Rfl: magnesium oxide (Mag-Ox) 400 mg tablet, Take 1 tablet (400 mg) by mouth once daily., Disp: , Rfl: pitavastatin calcium (Livalo) 2 mg tablet, Take 1 tablet by mouth once daily., Disp: , Rfl: potassium citrate 99 mg capsule, Take 1 tablet by mouth 3 times a day., Disp: , Rfl: SITagliptin phosphate (Januvia) 100 mg tablet, Take 1 tablet (100 mg) by mouth once daily., Disp: ,Rfl: Assessment/Plan 1. Atherosclerosis of coronary artery bypass graft without angina pectoris, unspecified whether chilkat or transplanted heart 2. Benign essential hypertension 3. Hyperlipidemia, unspecified hyperlipidemia type 4. Mitral valve insufficiency, unspecified etiology 5. Paroxysmal atrial fibrillation (CMS/HCC) 6. Diabetes mellitus of other type without complication, unspecified whether edge glue machine tender insulin use (CMS/HCC) 7. TIA (transient ischemic attack) 8. Haji's esophagus with dysplasia [facility] Work Phone: [phone]) 419-200011-07-2023 Instructions* Patient Instructions* Ben Nina MA - 08/04/2023 3:20 PM EST Please bring all medicines, vitamins, and herbal supplements with you when you come to the office. Prescriptions will not be filled unless you are compliant with your follow up appointments or have a follow up appointment scheduled as per instruction of your physician. Refills should be requested at the time of your visit. documented in this encounterMer[facility] Work Phone: [phone]) 658-952210-26-2023 Miscellaneous Notes* Telephone Encounter - Norbert Dailey MD - 07/23/2023 7:50 PM EDT I spoke to Mr. Mrs. Montgomery and went over the results of the biopsies. She is scheduled for another round of therapy on September 17. We will make a decision at that time to continue with high flow nitrogen cryotherapy or go back to balloon for more focal therapy. documented in this encounterMedina Hospital10-19-2023 Miscellaneous Notes* Telephone Encounter - Norbert Dailey MD - 07/16/2023 5:42 PM EDT I spoke to Mrs. Montgomery and her family regarding the results of today's endoscopy. There had been no interval change since the last round of cryotherapy. We will schedule another round in 8 weeks. If there is no response thereafter we may consider using cryoballoon technology. documented in this encounterMedina Hospital10-19-2023 Nurse Note* Kenneth Ott LPN - 07/16/2023 3:18 PM EDT AMBULATORY PATIENT EDUCATION NOTE TOPIC: GI PROCEDURES: Esophagogastroduodenoscopy(EGD) with or without biopies based on clinical findings, removal of polyps or lesions READINESS TO LEARN INSTRUCTION PROVIDED TO: Patient, readness to learn accessed prior to procedure COGNITIVE ABILITY: Alert and oriented PTED MOTIVATION TO LEARN: Eager FAMILY SUPPORT: High - Very involved in pt care IPATIENT LEARNS BEST BY: Individual Instruction Written Instruction - Hand-outs FACTORS AFFECTING LEARNING: None PHYSICAL LIMITATIONS AFFECTING LEARNING: None LEARNING RESPONSE METHOD OF INSTRUCTION: Individual instruction PATIENT / FAMILY RESPONSE: Verbalizes understanding of: WORSENING CONDITION- Signs and symptoms of aworsening condition that warrant a call to the physician FOLLOW-UP PLAN: Complete - No need for follow-up SUPPLEMENTAL MATERIAL: Procedure Discharge Instructions REFERRAL (RECOMMENDATION): None documented in this encounterMedina Hospital10-19-2023 History and physical note * Norbert Dailey MD - 07/16/2023 1:00 PM EDT HISTORY AND PHYSICAL Daniela Raymundo, 78 year old female Current history and physical on file: No Is a new History and Physical required for today's visit? Yes Indication for procedure: Haji's esophagus PROCEDURE(S) SCHEDULED FOR: EGD (Esophagogastroduodenoscopy) with or without biopsies, removal of polyps or lesions, dilation (any means), treatment of bleeding ( any means), Barrx treatment of Sarthak's Esophagus, image tube placement or cryo therapy treatment based on clinical findings. BASELINE BEHAVIOR: Calm BASELINE ORIENTATION: A & O x3 All medications and allergies reviewed: Yes Skin Assessment: Warm dry mucus membranes pink Airway/Respiratory Assessment: Airway: visualization of the uvula- Yes Mouth: opening greater than 2 fingerbreadths- Yes Neck: full range of motion- Yes Breath sounds clear/equal- Yes Cardiac Assessment: Regular rate and rhythm without murmur Abdominal Assessment: Abdomen soft, non-tender, no masses or organomegaly. Sedation Plan: MAC Additional Comments: None Norbert Dailey II, MD documented in this encounterMedina Hospital08-10-2023 Nurse Note* Aleyda Vila RN - 05/07/2023 3:52 PM EDT AMBULATORY PATIENT EDUCATION NOTE TOPIC: GI PROCEDURES: Esophagogastroduodenoscopy(EGD) for control of bleeding,dilation(any means),imaging,tube placement Esophagogastroduodenoscopy(EGD) with or without biopies based on clinical findings, removal of polyps or lesions READINESS TO LEARN INSTRUCTION PROVIDED TO: Patient, readness to learn accessed prior to procedure and Family member COGNITIVE ABILITY: Alert and oriented PTED MOTIVATION TO LEARN: Eager Interested FAMILY SUPPORT: High - Very involved in pt care IPATIENT LEARNS BEST BY: Individual Instruction Written Instruction - Hand-outs Verbal Instruction FACTORS AFFECTING LEARNING: None PHYSICAL LIMITATIONS AFFECTING LEARNING: None LEARNING RESPONSE METHOD OF INSTRUCTION: Individual instruction PATIENT / FAMILY RESPONSE: Verbalizes understanding of: WORSENING CONDITION- Signs and symptoms of aworsening condition that warrant a call to the physician FOLLOW-UP PLAN: Patient instructed to call with any further issues Recommend - Recommend continued instruction and follow up as directed Contact information given. SUPPLEMENTAL MATERIAL: Procedure Discharge Instructions REFERRAL (RECOMMENDATION): None * Fernando Neumann RN - 05/07/2023 2:07 PM EDT IV will be placed in the procedure room per anesthesia * Fernando Neumann RN - 05/07/2023 1:49 PM EDT PRE OP LEARNING ASSESSMENT PROCEDURE/SURGERY: GI PROCEDURES: EGD READINESS TO LEARN COGNITIVE ABILITY: Alert and oriented MOTIVATION TO LEARN: Interested FAMILY SUPPORT: High - Very involved in pt care PATIENT LEARNS BEST BY: Verbal Instruction FACTORS AFFECTING LEARNING: None PHYSICAL LIMITATIONS AFFECTING LEARNING: None Electronically Signed By: Fernando Neumann RN In Department: GASTROENTEROLOGY documented in this encounterMedina Hospital08-10-2023 History and physical note * Norbert Dailey MD - 05/07/2023 2:00 PM EDT HISTORY AND PHYSICAL Daniela Raymundo, 78 year old female Current history and physical on file: Yes Is a new History and Physical required for today's visit? Yes Indication for procedure: Haji's esophagus PROCEDURE(S) SCHEDULED FOR: EGD (Esophagogastroduodenoscopy) with or without biopsies, removal of polyps or lesions, dilation (any means), treatment of bleeding ( any means), Barrx treatment of Sarthak's Esophagus, image tube placement or cryo therapy treatment based on clinical findings. BASELINE BEHAVIOR: Calm BASELINE ORIENTATION: A & O x3 All medications and allergies reviewed: Yes Skin Assessment: Warm dry mucus membranes pink Airway/Respiratory Assessment: Airway: visualization of the uvula- Yes Mouth: opening greater than 2 fingerbreadths- Yes Neck: full range of motion- Yes Breath sounds clear/equal- Yes Cardiac Assessment: Regular rate and rhythm without murmur Abdominal Assessment: Abdomen soft, non-tender, no masses or organomegaly. Sedation Plan: MAC Additional Comments: None Norbert Dailey II, MD documented in this encounterMedina Hospital06-01-2023 Miscellaneous Notes* Telephone Encounter - Norbert Dailey MD - 02/26/2023 3:13 PM EDT Reviewed results of the procedure. Evidence of nodularity. Utilized high flow nitrogen cryotherapy. Will schedule repeat procedure in 8 weeks. Norbert Dailey II, MD documented in this encounterMedina Hospital06-01-2023 Nurse Note* Nayana Combs RN - 02/26/2023 3:02 PM EDT AMBULATORY PATIENT EDUCATION NOTE TOPIC: GI PROCEDURES: Esophagogastroduodenoscopy(EGD) with or without biopies based on clinical findings, removal of polyps or lesions READINESS TO LEARN INSTRUCTION PROVIDED TO: Patient, readness to learn accessed prior to procedure and Patient and family member COGNITIVE ABILITY: Alert and oriented PTED MOTIVATION TO LEARN: Eager Interested FAMILY SUPPORT: High - Very involved in pt care IPATIENT LEARNS BEST BY: Individual Instruction Verbal Instruction FACTORS AFFECTING LEARNING: None PHYSICAL LIMITATIONS AFFECTING LEARNING: None LEARNING RESPONSE METHOD OF INSTRUCTION: Individual instruction PATIENT / FAMILY RESPONSE: Verbalizes understanding of: WORSENING CONDITION- Signs and symptoms of aworsening condition that warrant a call to the physician FOLLOW-UP PLAN: Complete - No need for follow-up Patient instructed to call with any further issues Recommend - Recommend continued instruction and follow up as directed Contact information given. SUPPLEMENTAL MATERIAL: Procedure Discharge Instructions REFERRAL (RECOMMENDATION): None * Fernando Neumann RN - 02/26/2023 1:15 PM EDT Patient refused to have an IV placed stating it is to be done in the procedure room and refuses an accucheck Dr. Martinez ( fellow ) and Dr Melgar anesthesia notified * Fernando Neumann RN - 02/26/2023 12:44 AM EDT PRE OP LEARNING ASSESSMENT PROCEDURE/SURGERY: GI PROCEDURES: EGD READINESS TO LEARN COGNITIVE ABILITY: Alert and oriented MOTIVATION TO LEARN: Interested FAMILY SUPPORT: Unable to assess - Family not present PATIENT LEARNS BEST BY: Verbal Instruction FACTORS AFFECTING LEARNING: None PHYSICAL LIMITATIONS AFFECTING LEARNING: None Electronically Signed By: Fernando Neumann RN In Department: GASTROENTEROLOGY documented in this encounterMedina Hospital06-01-2023 History and physical note * Lisa Martinez MD - 02/26/2023 2:00 PM EDT HISTORY AND PHYSICAL Daniela Raymundo, 78 year old female Current history and physical on file: Yes Is a new History and Physical required for today's visit? Yes Indication for procedure: Haji's esophagus PROCEDURE(S) SCHEDULED FOR: EGD (Esophagogastroduodenoscopy) with or without biopsies, removal of polyps or lesions, dilation (any means), treatment of bleeding ( any means), Barrx treatment of Sarthak's Esophagus, image tube placement or cryo therapy treatment based on clinical findings. BASELINE BEHAVIOR: Calm BASELINE ORIENTATION: A & O x3 All medications and allergies reviewed: Yes Skin Assessment: Warm dry mucus membranes pink Airway/Respiratory Assessment: Airway: visualization of the uvula- Yes Mouth: opening greater than 2 fingerbreadths- Yes Neck: full range of motion- Yes Breath sounds clear/equal- Yes Cardiac Assessment: Regular rate and rhythm without murmur Abdominal Assessment: Abdomen soft, non-tender, no masses or organomegaly. Sedation Plan: MAC Additional Comments: None Lisa Martinez MD documented in this encounterMedina Hospital04-18-2023 Miscellaneous Notes* Telephone Encounter - Norbert Dailey MD - 01/13/2023 6:25 PM EDT I have received a scanned document from Dr. Michele Sol who is the patient's learning support aide who indicates that the patient is cleared from a cardiac standpoint for radiofrequency ablation. This document is in the scanned section of the electronic medical record. Norbert Dailey II, MD documented in this encounterMedina Hospital04-04-2023 Miscellaneous Notes* Telephone Encounter - Norbert Dailey MD - 12/30/2022 11:35 AM EDT I spoke to Mrs. Montgomery. By report her stress test was normal. She has been cleared for an upcoming round of therapy on February 26. I have asked her to have the records faxed to my attention so that we canaddend them to the chart. documented in this encounterMedina Hospital02-28-2023 Miscellaneous Notes* Telephone Encounter - Norbert Dailey MD - 11/25/2022 5:38 PM EST I spoke to Mrs. Montgomery.I also reviewed her emergency room notes. She had a slight elevation in the troponins the CT scan of the abdomen and pelvis revealed a thickened esophagus which would be expected with cryotherapy. I suspect that she was having esophageal spasm secondary to the cryotherapy. We only treated one half of the esophagus in an attempt to minimize symptoms. She is seeing her local learning support aide and following this evaluation we will then consider when the next step will be in terms of ablative therapy. documented in this encounterMedina Hospital02-23-2023 Nurse Note* Kiarra Ferrera RN - 11/20/2022 4:19 PM EST 1619: Patient complaining of 10/10 chest pain, KAMINI called; see documentation. Kiarra Ferrera RN BSN * Kiarra Ferrera RN - 11/20/2022 4:03 PM EST AMBULATORY PATIENT EDUCATION NOTE TOPIC: GI PROCEDURES: Esophagogastroduodenoscopy (EGD) with or without biopies based on clinical findings, removal of polyps or lesions, for control of bleeding, dilation (any means), imaging, tube placement READINESS TO LEARN INSTRUCTION PROVIDED TO: Patient, readness to learn accessed prior to procedure COGNITIVE ABILITY: Alert and oriented PTED MOTIVATION TO LEARN: Interested FAMILY SUPPORT: Unable to assess - Family not present IPATIENT LEARNS BEST BY: Individual Instruction Written Instruction - Hand-outs Verbal Instruction FACTORS AFFECTING LEARNING: None PHYSICAL LIMITATIONS AFFECTING LEARNING: None LEARNING RESPONSE METHOD OF INSTRUCTION: Individual instruction PATIENT / FAMILY RESPONSE: Verbalizes understanding of: WORSENING CONDITION- Signs and symptoms of aworsening condition that warrant a call to the physician FOLLOW-UP PLAN: Patient instructed to call with any further issues Recommend - Recommend continued instruction and follow up as directed Contact information given. SUPPLEMENTAL MATERIAL: Procedure Discharge Instructions REFERRAL (RECOMMENDATION): None Electronically Signed By: Kiarra Ferrera RN BSN documented in this encounterMedina Hospital02-23-2023 History and physical note * Norbert Dailey MD - 11/20/2022 3:00 PM EST HISTORY AND PHYSICAL Daniela Raymundo, 77 year old female Current history and physical on file: No Is a new History and Physical required for today's visit? Yes Indication for procedure: Haji's esophagus PROCEDURE(S) SCHEDULED FOR: EGD (Esophagogastroduodenoscopy) with or without biopsies, removal of polyps or lesions, dilation (any means), treatment of bleeding ( any means), Barrx treatment of Sarthak's Esophagus, image tube placement or cryo therapy treatment based on clinical findings. BASELINE BEHAVIOR: Calm BASELINE ORIENTATION: A & O x3 All medications and allergies reviewed: Yes Skin Assessment: Warm dry mucus membranes pink Airway/Respiratory Assessment: Airway: visualization of the uvula- Yes Mouth: opening greater than 2 fingerbreadths- Yes Neck: full range of motion- Yes Breath sounds clear/equal- Yes Cardiac Assessment: Regular rate and rhythm without murmur Abdominal Assessment: Abdomen soft, non-tender, no masses or organomegaly. Sedation Plan: MAC Additional Comments: None Norbert Dailey II, MD documented in this encounterMedina Hospital02-15-2023 Miscellaneous Notes* Telephone Encounter - Naun Hdez RN - 11/12/2022 11:02 AM EST Pharmacy escripts requesting the following refill: Requested Prescriptions Pending Prescriptions Disp Refills esomeprazole (NEXIUM) 40 mg capsule 180 capsule 3 Sig: Take 1 capsule by mouth twice daily. Please review and advise. Naun Hdez RN documented in this encounterMedina Hospital02-02-2023 Miscellaneous Notes* Telephone Encounter - Karlee Golden - 10/30/2022 10:53 AM EST Pt called asking about orders for her EGD and also if she can have prep instructions because she isconfused about eating times. Please review and advise Karlee Golden Gravity Meter Observer Orders placed Instructions for dietary prep instructions are placed in the order commmnents Norbert Dailey II, MD documented in this encounterMedina Hospital02-01-2023 Nurse Note* Adore Del Real RN - 10/29/2022 11:38 AM EST AMBULATORY PATIENT EDUCATION NOTE TOPIC: GI PROCEDURES: Esophagogastroduodenoscopy(EGD) with or without biopies based on clinical findings, removal of polyps or lesions READINESS TO LEARN INSTRUCTION PROVIDED TO: Patient and family member COGNITIVE ABILITY: Alert and oriented PTED MOTIVATION TO LEARN: Interested FAMILY SUPPORT: High - Very involved in pt care IPATIENT LEARNS BEST BY: Multiple Methods FACTORS AFFECTING LEARNING: None PHYSICAL LIMITATIONS AFFECTING LEARNING: None LEARNING RESPONSE METHOD OF INSTRUCTION: Individual instruction PATIENT / FAMILY RESPONSE: Verbalizes understanding of: WORSENING CONDITION- Signs and symptoms of aworsening condition that warrant a call to the physician FOLLOW-UP PLAN: Patient instructed to call with any further issues SUPPLEMENTAL MATERIAL: Procedure Discharge Instructions REFERRAL (RECOMMENDATION): None * Kateryna Everett RN - 10/29/2022 9:02 AM EST PRE OP LEARNING ASSESSMENT PROCEDURE/SURGERY: GI PROCEDURES: EGD READINESS TO LEARN COGNITIVE ABILITY: Alert and oriented MOTIVATION TO LEARN: Eager FAMILY SUPPORT: High - Very involved in pt care PATIENT LEARNS BEST BY: Individual Instruction FACTORS AFFECTING LEARNING: None PHYSICAL LIMITATIONS AFFECTING LEARNING: None Electronically Signed By: Kateryna Everett RN In Department: GASTROENTEROLOGY documented in this encounterMedina Hospital02-01-2023 Miscellaneous Notes* Sedation Documentation - Nydia Doyle RN - 10/29/2022 10:08 AM EST EGD w/ Cryo therapy aborted due to food in the stomach. documented in this encounterMedina Hospital02-01-2023 History and physical note * Norbert Dailey MD - 10/29/2022 9:00 AM EST HISTORY AND PHYSICAL Daniela Raymundo, 77 year old female Current history and physical on file: Yes Is a new History and Physical required for today's visit? Yes Indication for procedure: Haji's esophagus PROCEDURE(S) SCHEDULED FOR: EGD (Esophagogastroduodenoscopy) with or without biopsies, removal of polyps or lesions, dilation (any means), treatment of bleeding ( any means), Barrx treatment of Sarthak's Esophagus, image tube placement or cryo therapy treatment based on clinical findings. BASELINE BEHAVIOR: Calm BASELINE ORIENTATION: A & O x3 All medications and allergies reviewed: Yes Skin Assessment: Warm dry mucus membranes pink Airway/Respiratory Assessment: Airway: visualization of the uvula- Yes Mouth: opening greater than 2 fingerbreadths- Yes Neck: full range of motion- Yes Breath sounds clear/equal- Yes Cardiac Assessment: Regular rate and rhythm without murmur Abdominal Assessment: Abdomen soft, non-tender, no masses or organomegaly. Sedation Plan: Moderate and MAC Additional Comments: None Norbert Dailey II, MD documented in this encounterMedina Hospital01-25-2023 Miscellaneous Notes* Telephone Encounter - Dilia Nava RN - 10/22/2022 4:53 PM EST GI Pre-Procedure Spoke with patient: Yes Confirmed date scheduled and patient report time: Yes Procedure Planned:Esophagogastroduodenoscopy(EGD) for control of bleeding,dilation(any means),imaging,tube placement Esophagogastroduodenoscopy(EGD) with or without biopies based on clinical findings, removal of polyps or lesions Is the patient on blood thinners?yes Contact PCP for instructions regarding stopping anticoagulant medication pre-procedure Procedure Instructions given to patient: Yes, and they verbalized their understanding of instructions given Patient instructed to take prescribed preparation prior to procedure:Yes, and they verbalized theirunderstanding of instructions given Patient instructed to have family/friend present for procedure transport home:Patient/patient insurance claim representative was told that if they do not have a responsible adult accompany them to their procedure; and remain in the endoscopy area until they are discharged; that their procedure cannot be done with s edation or anesthesia and may be cancelled. and They verbalized their understanding and agree to have a responsible adult accompany the patient to their procedure and remain in the endoscopy area. Any barriers to Patient learning: Patient/Patient Event Producer responded appropriately on phone. Type of instruction given: Verbal by telephone contact. Dilia Nava RN documented in this encounterMedina Hospital12-28-2022 Miscellaneous Notes* Telephone Encounter - Suzi Garcia LPN - 09/24/2022 11:26 AM EST EGD/ablation orders placed routed to [facility] for scheduling with Dr. Dailey. Suzi Garcia LPN * Telephone Encounter - Karlee Golden - 09/24/2022 11:07 AM EST Pt called she would like to know if she could get her procedure done in the first 2 weeks of September? I don't see any orders for her to schedule. Please review and advise Karlee Golden Gravity Meter Observer documented in this encounterMedina Hospital12-13-2022 History of Present illness Narrative* Norbert Dailey MD - 09/09/2022 3:30 PM EST VIRTUAL VISIT PROGRESS NOTE This is a virtual visit using SNTMNT video visit. It required patient-provider interaction for themedical decision making as documented below. Daniela Raymundo is a 77 year old female seen for 77-year-old female being seen in virtual follow-up. During the last visit she was tolerating a soft diet very well and subsequently we asked her to advance her diet. There is no dysphagia fever or chills. She is advancing her diet without difficulty. Her appetite is still somewhat decreased but there isno dysphagia or regurgitation or heartburn. Her ambulatory ability has also improved. HISTORY REVIEWED (electronic chart updated): PAST MEDICAL HISTORY Diagnosis Date Atrial fibrillation (HCC) Haji's esophagus with high grade dysplasia CAD (coronary artery disease) Diabetes (HCC) Essential tremor Generalized anxiety disorder HTN (hypertension) Mixed hyperlipidemia Thyroid disease TIA (transient ischemic attack) PAST SURGICAL HISTORY Procedure Laterality Date APPENDECTOMY CHOLECYSTECTOMY Cholecystectomy COLONOSCOPY FLX DX W/COLLJ SPEC WHEN PFRMD Colonoscopy CORONARY ARTERY BYP W/VEIN & ARTERY GRAFT 3 VEIN 09/28/2010 CABG, three grafts ESOPHAGOGASTRODUODENOSCOPY TRANSORAL DIAGNOSTIC EGD VAGINAL HYSTERECTOMY UTERUS 250 GM/< Hysterectomy, vaginal FAMILY HISTORY Problem Relation Age of Onset Anesthesia Problems No Family History Blood Clots No Family History Clotting Disorder No Family History Social History Tobacco Use Smoking status: Former Types: Cigarettes Quit date: 1977 Years since quittin.9 Smokeless tobacco: Never Tobacco comments: 2.5-3 packs per day. Substance Use Topics Alcohol use: Not Currently Comment: allergic to etoh. Drug use: Never Current Outpatient Medications Medication Sig Miscellaneous Medical Supply ([employer] SU[employer]OR AND CONTAINER) To crush pills, dissolve in water and take it Walker (ULTRA-LIGHT ROLLATOR) [facility] [place] and to prevent fall apixaban (ELIQUIS) 5 mg tab(s) Take 5 mg by mouth twice daily. aspirin, enteric coated (ASPIRIN, ENTERIC COATED) 81 mg EC tablet Take 81 mg by mouth three times aweek. esomeprazole (NEXIUM) 40 mg capsule TAKE 1 CAPSULE TWICE DAILY ALPRAZolam (XANAX) 0.5 mg tablet fexofenadine (NAOMI) 180 mg tablet fluticasone (FLONASE) 50 mcg/actuation nasal spray furosemide (LASIX) 40 mg tablet ACCU-CHEK FASTCLIX LANCET DRUM lancets levothyroxine (SYNTHROID) 75 mcg tablet losartan (COZAAR) 25 mg tablet pitavastatin (LIVALO) 2 mg tablet Take 1 tablet by mouth once daily. SITagliptin (JANUVIA) 100 mg tablet Take 100 mg by mouth once daily. POTASSIUM ORAL Take 300 mg by mouth once daily. No current facility-administered medications for this visit. ALLERGIES Allergen Reactions Alcohol Hives Zetia [Ezetimibe] Other: See Comments Leg cramps. 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 I would like to get her rehabilitation more advanced. We discussed our approach which will be RFA or we may consider using the cryoballoon. There are no Patient Instructions on file for this visit. I spent a total of 20 minutes on the date of the service which included [id number] patient care Answers submitted by the patient for this visit: Review of Systems Gastroenterology (Submitted on 09/07/2022) Fever: No Chills: No Night Sweats: No Unitentional Weight Change: No A Cough: No Difficulty Breathing: No Chest Pain: No Belly pain: No A feeling of fullness or have belly pain after eating: No Food getting stuck in your throat or chest after eating: No Nausea - that is, a feeling like you could vomit: No Regurgitation - that is, food or liquid coming back up into your throat or mouth without vomiting, or feel burning behind your breast bone: No Loss of appetite: No To throw up or vomit: No Blood in your stools: No Black tarry stools: No Loose or watery stools: No The feeling like you need to empty your bowels right away - that is, feel as if you would have an accident: No Bowel incontinence - that is, have an accident because you cannot make it to the bathroom in time: No Problems with straining while having bowel movements , hard or lumpy stools, or feel unfinished (that you have not passed all your stool): No Pain in rectum or anus during bowel movements: No Problems with jaundice - that is, yellow discoloration of your skin or eyes, now or in the past: No Problems with having to flush the toilet more than two times due to oily stool, or see stool floating with oil: No documented in this encounterMedina Hospital11-29-2022 History of Present illness Narrative* Norbert Dailey MD - 08/26/2022 4:30 PM EST VIRTUAL VISIT PROGRESS NOTE This is a virtual visit using CopyRightNowt video visit. It required patient-provider interaction for themedical decision making as documented below. Daniela Raymundo is a 77 year old female seen for 77-year-old female seen in follow-up. Recently hospitalized following radiofrequency ablation of Haji s esophagus. Noted to have aspiration pneumoniaas well as a small esophageal tear that was treated endoscopically. She is quite weak following her hospitalization and is having great difficulty ambulating. In addition she has been on a liquid diet. Reportedly she did not receive instructions on a soft diet. We reviewed the developments following her recent endoscopic procedure which included aspiration pneumonia which led to hospitalization as well as a small esophageal tear that was repaired endoscopically. HISTORY REVIEWED (electronic chart updated): PAST MEDICAL HISTORY Diagnosis Date Atrial fibrillation (HCC) Haji's esophagus with high grade dysplasia CAD (coronary artery disease) Diabetes (HCC) Essential tremor Generalized anxiety disorder HTN (hypertension) Mixed hyperlipidemia Thyroid disease TIA (transient ischemic attack) PAST SURGICAL HISTORY Procedure Laterality Date APPENDECTOMY CHOLECYSTECTOMY Cholecystectomy COLONOSCOPY FLX DX W/COLLJ SPEC WHEN PFRMD Colonoscopy CORONARY ARTERY BYP W/VEIN & ARTERY GRAFT 3 VEIN 09/28/2010 CABG, three grafts ESOPHAGOGASTRODUODENOSCOPY TRANSORAL DIAGNOSTIC EGD VAGINAL HYSTERECTOMY UTERUS 250 GM/< Hysterectomy, vaginal FAMILY HISTORY Problem Relation Age of Onset Anesthesia Problems No Family History Blood Clots No Family History Clotting Disorder No Family History Social History Tobacco Use Smoking status: Former Types: Cigarettes Quit date: 1977 Years since quittin.9 Smokeless tobacco: Never Tobacco comments: 2.5-3 packs per day. Substance Use Topics Alcohol use: Not Currently Comment: allergic to etoh. Drug use: Never Current Outpatient Medications Medication Sig Miscellaneous Medical Supply ([employer] SU[employer]OR AND CONTAINER) To crush pills, dissolve in water and take it Walker (ULTRA-LIGHT ROLLATOR) mis For mobility and to prevent fall apixaban (ELIQUIS) 5 mg tab(s) Take 5 mg by mouth twice daily. aspirin, enteric coated (ASPIRIN, ENTERIC COATED) 81 mg EC tablet Take 81 mg by mouth three times aweek. esomeprazole (NEXIUM) 40 mg capsule TAKE 1 CAPSULE TWICE DAILY ALPRAZolam (XANAX) 0.5 mg tablet fexofenadine (NAOMI) 180 mg tablet fluticasone (FLONASE) 50 mcg/actuation nasal spray furosemide (LASIX) 40 mg tablet ACCU-CHEK FASTCLIX LANCET DRUM lancets levothyroxine (SYNTHROID) 75 mcg tablet losartan (COZAAR) 25 mg tablet pitavastatin (LIVALO) 2 mg tablet Take 1 tablet by mouth once daily. SITagliptin (JANUVIA) 100 mg tablet Take 100 mg by mouth once daily. POTASSIUM ORAL Take 300 mg by mouth once daily. No current facility-administered medications for this visit. ALLERGIES Allergen Reactions Alcohol Hives Zetia [Ezetimibe] Other: See Comments Leg cramps. REVIEW OF SYSTEMS: As noted in HPI ASSESSMENT PLAN: I have reviewed her medications list and have given her recommendations regarding restarting some of them without having them crushed. I will plan for another endoscopy sometime in September if possible. In addition I have emailed a soft diet instruction sheet. We will plan for another virtual visit next week. There are no Patient Instructions on file for this visit. I spent a total of 22 minutes on the date of the service which included preparing to see the patient and [id number] patient care Answers submitted by the patient for this visit: Review of Systems Gastroenterology (Submitted on 08/19/2022) Fever: No Chills: No Night Sweats: No Unitentional Weight Change: Yes A Cough: No Difficulty Breathing: No Chest Pain: No Belly pain: No A feeling of fullness or have belly pain after eating: No Food getting stuck in your throat or chest after eating: No Nausea - that is, a feeling like you could vomit: No Regurgitation - that is, food or liquid coming back up into your throat or mouth without vomiting, or feel burning behind your breast bone: No Loss of appetite: No To throw up or vomit: No Blood in your stools: No Black tarry stools: No Loose or watery stools: No The feeling like you need to empty your bowels right away - that is, feel as if you would have an accident: No Bowel incontinence - that is, have an accident because you cannot make it to the bathroom in time: No Problems with straining while having bowel movements , hard or lumpy stools, or feel unfinished (that you have not passed all your stool): No Pain in rectum or anus during bowel movements: No Problems with jaundice - that is, yellow discoloration of your skin or eyes, now or in the past: No Problems with having to flush the toilet more than two times due to oily stool, or see stool floating with oil: No documented in this encounterMedina Hospital11-28-2022 Miscellaneous Notes* Telephone Encounter - Karlee Golden - 08/25/2022 2:30 PM EST Ms. Raymundo called she is confused as to what to eat since she is on a soft diet she would like a nurse to call and clarify. Please review and advise Karlee Golden Gravity Meter Observer Mrs. Montgomery is doing well. She is totally normalized her diet without any difficulty. She is now ambulating without a cane. She is scheduled for another round of ablative therapy on October 29. We will schedule extra time for this. documented in this encounterMedina Hospital11-15-2022 Miscellaneous Notes* Telephone Encounter - Carmen Andrews RN - 08/12/2022 11:54 AM EST PATIENT INFORMATION Record ID: [id number] Patient Name: Daniela Raymundo [facility]: [facility] [place]: [facility] Attending: Eleuterio Santos Center: Hospital Medicine INSTRUCTIONS Continue with call and ensure patient has their physician s number or is given number of appropriate scheduling team. Use Intranet or [facility] physician intranet G10 Internal Medicine- [phone] -[facility] has [facility] [phone]- Patient is local, wants a community physician [facility] [phone]- Medicaid patient SURVEY INFORMATION Medical/Nurse Machine Stitcher: Carmen Andrews 1. Your discharge instructions are important in guiding you through the recovery process. Is there anything I could help you clarify on your discharge instructions? (Standard Question) No 2. Do you have a follow up appointment related to your hospital stay scheduled within the next 30 days? (Standard Question) No, patient prefers to schedule in own time 3. Many patients have concerns about their medications once they are home. Do you have any questions about getting or taking your medications? (Standard Question) No 4. Do you have any new or different symptoms? (Standard Question) No documented in this encounterMedina Hospital11-03-2022 History of Past illness Narrative* Problem Noted Date Resolved Date Acute respiratory failure with hypoxia and hyper capnia 07/31/2022 08/05/2022 Pneumonia due to infectious organism 07/31/2022 08/05/2022 documented as of this encounter (statuses as of 08/12/2022) [facility] of Past illness Narrative* Problem Noted Date Resolved Date Acute respiratory failure with hypoxia and hyper capnia 07/31/2022 08/05/2022 Pneumonia due to infectious organism 07/31/2022 08/05/2022 documented as of this encounter (statuses as of 08/26/2022) [facility] of Past illness Narrative* Problem Noted Date Resolved Date Acute respiratory failure with hypoxia and hyper capnia 07/31/2022 08/05/2022 Pneumonia due to infectious organism 07/31/2022 08/05/2022 documented as of this encounter (statuses as of 09/09/2022) [facility] illness Narrative* Problem Noted Date Resolved Date Acute respiratory failure with hypoxia and hyper capnia 07/31/2022 08/05/2022 Pneumonia due to infectious organism 07/31/2022 08/05/2022 documented as of this encounter (statuses as of 09/30/2022) [facility] Narrative* Problem Noted Date Resolved Date Acute respiratory failure with hypoxia and hyper capnia 07/31/2022 08/05/2022 Pneumonia due to infectious organism 07/31/2022 08/05/2022 documented as of this encounter (statuses as of 10/08/2022) [address]03-2022 History of Past illness Narrative* Problem Noted Date Resolved Date Acute respiratory failure with hypoxia and hyper capnia 07/31/2022 08/05/2022 Pneumonia due to infectious organism 07/31/2022 08/05/2022 documented as of this encounter (statuses as of 10/22/2022) [facility] Narrative* Problem Noted Date Resolved Date Acute respiratory failure with hypoxia and hyper capnia 07/31/2022 08/05/2022 Pneumonia due to infectious organism 07/31/2022 08/05/2022 documented as of this encounter (statuses as of 10/30/2022) [address]03-2022 History of Past illness Narrative* Problem Noted Date Resolved Date Acute respiratory failure with hypoxia and hyper capnia 07/31/2022 08/05/2022 Pneumonia due to infectious organism 07/31/2022 08/05/2022 documented as of this encounter (statuses as of 10/30/2022) [address]03-2022 History of Past illness Narrative* Problem Noted Date Resolved Date Acute respiratory failure with hypoxia and hyper capnia 07/31/2022 08/05/2022 Pneumonia due to infectious organism 07/31/2022 08/05/2022 documented as of this encounter (statuses as of 11/12/2022) [facility] Narrative* Problem Noted Date Resolved Date Acute respiratory failure with hypoxia and hyper capnia 07/31/2022 08/05/2022 Pneumonia due to infectious organism 07/31/2022 08/05/2022 documented as of this encounter (statuses as of 11/21/2022) [address]03-2022 History of Past illness Narrative* Problem Noted Date Resolved Date Acute respiratory failure with hypoxia and hyper capnia 07/31/2022 08/05/2022 Pneumonia due to infectious organism 07/31/2022 08/05/2022 documented as of this encounter (statuses as of 11/26/2022) [address]03-2022 History of Past illness Narrative* Problem Noted Date Resolved Date Acute respiratory failure with hypoxia and hyper capnia 07/31/2022 08/05/2022 Pneumonia due to infectious organism 07/31/2022 08/05/2022 documented as of this encounter (statuses as of 12/26/2022) [address]22 History of Past illness Narrative* Problem Noted Date Resolved Date Acute respiratory failure with hypoxia and hyper capnia 07/31/2022 08/05/2022 Pneumonia due to infectious organism 07/31/2022 08/05/2022 documented as of this encounter (statuses as of 12/30/2022) [facility] Narrative* Problem Noted Date Resolved Date Acute respiratory failure with hypoxia and hyper capnia 07/31/2022 08/05/2022 Pneumonia due to infectious organism 07/31/2022 08/05/2022 documented as of this encounter (statuses as of 01/14/2023) [facility] Narrative* Problem Noted Date Resolved Date Acute respiratory failure with hypoxia and hyper capnia 07/31/2022 08/05/2022 Pneumonia due to infectious organism 07/31/2022 08/05/2022 documented as of this encounter (statuses as of 02/27/2023) [facility] Narrative* Problem Noted Date Resolved Date Acute respiratory failure with hypoxia and hyper capnia 07/31/2022 08/05/2022 Pneumonia due to infectious organism 07/31/2022 08/05/2022 documented as of this encounter (statuses as of 02/27/2023) [facility] Narrative* Problem Noted Date Diagnosed Date Resolved Date Acute respiratory failure wi th hypoxia and hypercapnia 07/31/2022 08/05/2022 Pneumonia due to infectious organism 07/31/2022 08/05/2022 documented as of this encounter (statuses as of 05/01/2023) [facility] Narrative* Problem Noted Date Diagnosed Date Resolved Date Acute respiratory failure wi th hypoxia and hypercapnia 07/31/2022 08/05/2022 Pneumonia due to infectious organism 07/31/2022 08/05/2022 documented as of this encounter (statuses as of 05/08/2023) [address]22 History of Past illness Narrative* Problem Noted Date Diagnosed Date Resolved Date Acute respiratory failure wi th hypoxia and hypercapnia 07/31/2022 08/05/2022 Pneumonia due to infectious organism 07/31/2022 08/05/2022 documented as of this encounter (statuses as of 07/17/2023) [facility] Narrative* Problem Noted Date Diagnosed Date Resolved Date Acute respiratory failure wi th hypoxia and hypercapnia 07/31/2022 08/05/2022 Pneumonia due to infectious organism 07/31/2022 08/05/2022 documented as of this encounter (statuses as of 07/17/2023) [facility] Narrative* Problem Noted Date Diagnosed Date Resolved Date Acute respiratory failure wi th hypoxia and hypercapnia 07/31/2022 08/05/2022 Pneumonia due to infectious organism 07/31/2022 08/05/2022 documented as of this encounter (statuses as of 07/24/2023) [facility] Narrative* Problem Noted Date Diagnosed Date Resolved Date Acute respiratory failure wi th hypoxia and hypercapnia 07/31/2022 08/05/2022 Pneumonia due to infectious organism 07/31/2022 08/05/2022 documented as of this encounter (statuses as of 09/11/2023) [facility] Narrative* Problem Noted Date Diagnosed Date Resolved Date Acute respiratory failure wi th hypoxia and hypercapnia 07/31/2022 08/05/2022 Pneumonia due to infectious organism 07/31/2022 08/05/2022 documented as of this encounter (statuses as of 12/21/2023) [address]22 History of Past illness Narrative* Problem Noted Date Diagnosed Date Resolved Date Acute respiratory failure wi th hypoxia and hypercapnia 07/31/2022 08/05/2022 Pneumonia due to infectious organism 07/31/2022 08/05/2022 documented as of this encounter (statuses as of 01/01/2024) [facility]* Problem Noted Date Diagnosed Date Resolved Date Acute respiratory failure wi th hypoxia and hypercapnia 07/31/2022 08/05/2022 Pneumonia due to infectious organism 07/31/2022 08/05/2022 documented as of this encounter (statuses as of 01/04/2024) [facility] Miscellaneous Notes* Telephone Encounter - Jo Villa RN - 07/24/2022 4:16 PM EDT GI Pre-Procedure Spoke with patient: Yes Confirmed date scheduled and patient report time: Yes Procedure Planned:Esophagogastroduodenoscopy(EGD) with or without biopies based on clinical findings, removal of polyps or lesions Is the patient on blood thinners?yes Patient contacted their PCP for instructions Procedure Instructions given to patient: Yes, and they verbalized their understanding of instructions given Patient instructed to take prescribed preparation prior to procedure:No Patient instructed to have family/friend present for procedure transport home:Patient/patient insurance claim representative was told that if they do not have a responsible adult accompany them to their procedure; and remain in the endoscopy area until they are discharged; that their procedure cannot be done with s edation or anesthesia and may be cancelled. and They verbalized their understanding and agree to have a responsible adult accompany the patient to their procedure and remain in the endoscopy area. Any barriers to Patient learning: Patient/Patient Event Producer responded appropriately on phone. Type of instruction given: Verbal by telephone contact. Jo Villa RN documented in this encounterMedina Hospital10-18-2022 Miscellaneous Notes* Telephone Encounter - Norbert Dailey MD - 07/15/2022 7:31 PM EDT Instructed the patient to stop the Eliquis 3 days prior to the procedure. documented in this encounterMedina Hospital10-17-2022 Miscellaneous Notes* Telephone Encounter - Dilia Ortiz - 07/14/2022 1:58 PM EDT Pt called in to ask how many days prior to procedure on 07/31/22 does she need to hold Eliquis. She states her learning support aide told her to ask performing provider Pt can be reached at [phone] Dilia Ortiz [employer]er II DD[employer] documented in this encounterMedina Hospital08-30-2022 Miscellaneous Notes* Telephone Encounter - Norbert Dailey MD - 05/27/2022 12:10 PM EDT I spoke to Mrs. Montgomery and reviewed the biopsy pathology specimens which revealed focal low-grade and high-grade dysplasia but no evidence of malignancy. We will plan for another endoscopy in 10 weeks. At that time we will survey the area of the wide-field EMR as well as perform RFA of the Haji'sesophagus documented in this encounterMedina Hospital08-25-2022 Miscellaneous Notes* Telephone Encounter - Norbert Dailey MD - 05/22/2022 3:58 PM EDT Reviewed the results of today's EGD with Mrs. Raymundo and her family Will restart eliquis Thursday evening Await pathology If negative, repeat EGD in 8 weeks * Telephone Encounter - Dyana Matias - 04/14/2022 1:13 PM EDTSummary: EGD results Pt called as she is worried she may have cancer and is asking for a call regarding her EGD resutls.She is staying home until she hears from us as she does not want to miss the call and she does not have a cell. Dr. Plaza: Dr. Dailey is out due to a family emergency if you are able to call this patient please and thank you. * Telephone Encounter - Karlee Golden - 04/14/2022 11:05 AM EDT Pt called would like someone to call her ANDREA about results. She said she has been [facility] the [facility] for days waiting for her results. * Telephone Encounter - Karlee Golden - 04/11/2022 3:52 PM EDT Pt called for results from EGD on 04/08/22 would like someone to call her soon. Karlee Golden Gravity Meter Observer documented in this encounterMedina Hospital08-25-2022 Nurse Note* Pilar Fisher RN - 05/22/2022 3:41 PM EDT AMBULATORY PATIENT EDUCATION NOTE TOPIC: GI PROCEDURES: Esophagogastroduodenoscopy(EGD) with or without biopies based on clinical findings, removal of polyps or lesions READINESS TO LEARN INSTRUCTION PROVIDED TO: Patient and family member COGNITIVE ABILITY: Alert and oriented PTED MOTIVATION TO LEARN: Eager FAMILY SUPPORT: High - Very involved in pt care IPATIENT LEARNS BEST BY: Individual Instruction Written Instruction - Hand-outs Verbal Instruction FACTORS AFFECTING LEARNING: None PHYSICAL LIMITATIONS AFFECTING LEARNING: None LEARNING RESPONSE METHOD OF INSTRUCTION: Individual instruction PATIENT / FAMILY RESPONSE: Verbalizes understanding of: WORSENING CONDITION- Signs and symptoms of aworsening condition that warrant a call to the physician FOLLOW-UP PLAN: Patient instructed to call with any further issues SUPPLEMENTAL MATERIAL: Procedure Discharge Instructions REFERRAL (RECOMMENDATION): None * Terese Lisa RN - 05/22/2022 12:42 PM EDT PRE OP LEARNING ASSESSMENT PROCEDURE/SURGERY: GI PROCEDURES: EGD and EMR READINESS TO LEARN COGNITIVE ABILITY: Alert and oriented MOTIVATION TO LEARN: Eager Interested FAMILY SUPPORT: High - Very involved in pt care PATIENT LEARNS BEST BY: Individual Instruction Verbal Instruction FACTORS AFFECTING LEARNING: None PHYSICAL LIMITATIONS AFFECTING LEARNING: None Electronically Signed By: Terese Lisa RN In Department: GASTROENTEROLOGY documented in this encounterMedina Hospital08-18-2022 Miscellaneous Notes* Telephone Encounter - Aleyda Vila RN - 05/15/2022 8:26 AM EDT Attempted to reach the patient at the contact number that they provided [phone] (home) . Unable to speak with patient and unable to leave voicemail. ALEYDA Vila RN documented in this encounterMedina Hospital08-08-2022 Miscellaneous Notes* Telephone Encounter - Norbert Dailey MD - 05/05/2022 3:29 PM EDT I spoke to Mr. Mrs. Montgomery regarding the results of the endoscopy. 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 The polyp is in a challenging position but Huan feel that we can attempt to remove this endoscopically. Given history of Eliquis and its location I believe that a type and screen will be needed as well as extra time to do the procedure. I will arrange for this in an expedient fashion. Once the polyp has been addressed we then can consider ablation of the Haji's esophagus with HGD * Telephone Encounter - Karlee Golden - 05/05/2022 10:57 AM EDT Pt called asking to get schedule I don't see any notes about a procedure or timeframe please assist. Karlee * Telephone Encounter - Karlee Golden - 04/28/2022 10:04 AM EDT Pt called to follow up on the next steps of care. She is ready to continue her care she cant prolong her procedures into winter. Please call and advise pt. [phone] * Telephone Encounter - Karlee Golden - 04/18/2022 11:28 AM EDT I attempted to reach the patient multiple times today and was unable to leave an voicemail. Pt called to find out when the next steps to in her care will be done. She said she needs the growth removed before she can continue with the next procedures. Please review and advise Karlee Golden Gravity Meter Observer documented in this encounterMedina Hospital07-11-2022 Instructions* Patient Instructions* Cynthia Huynh APRN.PEARL FISHERMAN - 04/07/2022 12:24 PM EDT PATIENT PREOPERATIVE INSTRUCTIONS Fortunato Schwartz,* has scheduled you for your procedure at this surgery center: [facility] [place] Scheduling Office: [phone] --[address] [place] [address]. Please read below carefully for your personalized instructions. Arrival Time for Surgery: - To obtain your arrival time for surgery, call your physician's office the day before your surgery. - If your surgery is scheduled for Thursday, call the Thursday before. Your surgeon s nursing scheduler will tell you what time to call the office. - If you have not reached the departmental nursing scheduler by 5 P.M., call [phone] after 5 P.M. the day before your surgery. Please be aware that emergency situations arise, which may delay or change your surgical time. If this happens, we will notify you as soon as possible and regret any inconvenience. Dietary Restrictions: - Nothing to eat or drink after midnight except for a sip of water with approved medications. Medications: Unless instructed differently below, stay on all of your medications until your surgery. Approved medications to take the morning of surgery with a sip of water: Levothyroxine (synthroid),esomeprazole (nexium) - No diabetic medication the morning of surgery. If you start any new medications after today's visit, please contact the surgeon's office. Blood Thinning Medications: - Stop NSAIDS (Ibuprofen, Advil, Aleve, Motrin, Celebrex, Mobic, etc.) 7 days before surgery, as directed by your surgeon. - Stop Vitamin E, ALL multi-vitamins, herbals and dietary supplements 7 days before surgery. - You may take Tylenol (Acetaminophen) or any of your pain medications that do not contain aspirin or NSAIDS as needed. - Stop ELIQUIS 3 days pre-op Important Reminders: - Candy, mints, and tobacco products are NOT permitted the morning of surgery. - Hearing aids, dentures and glasses may be worn the morning of surgery. - NO jewelry, body piercings, makeup, hairpins or contacts are to be worn the day of surgery. If you develop symptoms such as a fever, cold, or flu, or have other changes to your health within TWO DAYS of scheduled surgery or the morning of surgery, please contact the surgery center above. Personal Belongings: -Please have photo ID and insurance cards. -If you do not have a copy of advance directives on file with us, please bring a copy with you on the day of surgery. - Leave ALL valuables and money at home or with family members. For Outpatient Procedures: - YOU MUST HAVE A RESPONSIBLE MOTORIZED SQUAD COMMANDING OFFICER TAKE YOU HOME. A TRANSPORTER DRIVER OR REAGENT TENDER HELPER CANNOT BE MADE A RESPONSIBLE MOTORIZED SQUAD COMMANDING OFFICER. - We recommend that a responsible person stays with you overnight to take care of you. - You cannot stay in a hotel alone after outpatient surgery. You will not be permitted to have yoursurgery, if you do not have someone to take care of you. If you already have an Advance Directive, please fax a copy to [phone] or email to for it to be added to your chart. If you do not have an Advance Directive, you can find the appropriate form and more information at [email or web address]. We recommend that youcomplete the Advance Directive form found on the website and bring it with you the day of your surgery. It can be witnessed and scanned into your chart that day. Cynthia Huynh APRN.CNP documented in this encounterMedina Hospital07-11-2022 History and physical note * Cynthia Huynh APRN.CNP - 04/07/2022 12:04 PM EDT HISTORY AND PHYSICAL EXAMINATION SERVICE DATE: 04/07/2022 SERVICE TIME: 12:08 PM PRIMARY CARE PHYSICIAN: Fortunato Schwartz MD REASON FOR VISIT: Daniela Raymundo is a 77 year old female who is scheduled for EGD at the request of Dr. Fortunato Schwartz for consultation. My final recommendation will be communicated back to the requesting physician by way of shared medical record or letter. The patient has the following: ACTIVE PROBLEM LIST Cad (Coronary Artery Disease) Htn (Hypertension) Diabetes Mellitus, Type 2 (Hcc) Atrial Fibrillation (Hcc) History of Tia (Transient Ischemic Attack) Haji's Syndrome Hypothyroidism Benign Essential Hypertension Essential Tremor Generalized Anxiety Disorder Insomnia Mitral Valve Insufficiency Mixed Hyperlipidemia Stage 2 Chronic Kidney Disease Transient Ischemic Attack Subjective CHIEF COMPLAINT: Haji's esophagus HPI: 77 year old female with a history of haji's esophagus presents for PACC prior to her upcoming procedure. Patient denies complaints today. PAST MEDICAL HISTORY Diagnosis Date CAD (coronary artery disease) HTN (hypertension) PAST SURGICAL HISTORY Procedure Laterality Date APPENDECTOMY CHOLECYSTECTOMY Cholecystectomy COLONOSCOPY FLX DX W/COLLJ SPEC WHEN PFRMD Colonoscopy CORONARY ARTERY BYP W/VEIN & ARTERY GRAFT 3 VEIN 09/28/2010 CABG, three grafts ESOPHAGOGASTRODUODENOSCOPY TRANSORAL DIAGNOSTIC EGD VAGINAL HYSTERECTOMY UTERUS 250 GM/< Hysterectomy, vaginal FAMILY HISTORY Problem Relation Age of Onset Anesthesia Problems No Family History Blood Clots No Family History Clotting Disorder No Family History SOCIAL HISTORY: Social History Tobacco Use Smoking status: Former Smoker Types: Cigarettes Quit date: 1977 Years since quittin.5 Smokeless tobacco: Never Used Tobacco comment: 2.5-3 packs per day. Substance Use Topics Alcohol use: Not Currently Comment: allergic to etoh. Drug use: Never Prior to Admission medications as of 04/07/22 1235 Medication Sig Last Dose Taking apixaban (ELIQUIS) 5 mg tab(s) Take 5 mg by mouth twice daily. Yes aspirin, enteric coated (ASPIRIN, ENTERIC COATED) 81 mg EC tablet Take 81 mg by mouth three times aweek. Yes esomeprazole (NEXIUM) 40 mg capsule TAKE 1 CAPSULE TWICE DAILY Yes ALPRAZolam (XANAX) 0.5 mg tablet Yes fexofenadine (NAOMI) 180 mg tablet Yes fluticasone (FLONASE) 50 mcg/actuation nasal spray Yes furosemide (LASIX) 40 mg tablet Yes ACCU-CHEK FASTCLIX LANCET DRUM lancets Yes levothyroxine (SYNTHROID) 75 mcg tablet Yes losartan (COZAAR) 25 mg tablet Yes Pitavastatin (LIVALO) 2 mg tab Take 1 tablet by mouth once daily. Yes sitaGLIPtin (JANUVIA) 100 mg tablet Take 100 mg by mouth once daily. Yes POTASSIUM ORAL Take 300 mg by mouth once daily. Yes No medication comments found. ALLERGIES Allergen Reactions Alcohol Hives Zetia [Ezetimibe] Other: See Comments Leg cramps. COVID VACCINATION STATUS: Fully vaccinated REVIEW OF SYSTEMS: PAIN ASSESSMENT: General: No weight loss, malaise or fevers. 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 No history of respiratory/pulmonary symptoms or problems. Cardiovascular: Negative for Recent GA, Angina + CAD S/P CABG on Eliquis + HTN on RX + H/O Afib on AC GI: No history of GI symptoms or problems. No history of esophageal varices, recent ascites, or ETOH greater than 2 drinks per day. + GERD on RX : No history of dysuria, frequency or incontinence,, stones or chronic kidney disease LEASE BUYER: Negative for abnormal vaginal bleeding, abnormal vaginal discharge. : Denies, No LMP recorded. Patient has had a hysterectomy. Endocrine: Diabetes Mellitus on oral agent, Hypothyroidism Hematology: Chronic anti-coagulation / platelet meds (Aspirin, Eliquis) Oncology: No history of CA metastasis, chemo within 30 days, or radiotherapy within 90 days. Has not lost 10% of body wt in 6 months. No history of oncological symptoms or problems. Psych: No history of psychiatric symptoms or problems. Musculoskeletal: Negative for joint pain or swelling, back pain or muscle pain. Skin: Negative for lesions, rash and itching. Objective PHYSICAL EXAM: VITALS: BP 140/78 Pulse 109 Temp (Src) 97.3 (Temporal Artery) Resp 16 Ht 5' 3 (1.60m) Wt 152 lb (68.9kg) SpO2 97% BMI 26.93 kg/(m^2). General: Alert and oriented, No acute distress Skin: Normal color, no rash, no lesions. HEENT: EOM, pupils equal, round and reactive. Cardiovascular: Normal S1 & S2, no rubs, murmurs or gallops. No JVD. Pulse regular. Lungs: Normal breath sounds, no wheezes or crackles. Abdomen: Soft, non-tender, no rigidity. Extremities: No deformity, no edema or tenderness, no joint swelling or clubbing. Neurological: Normal cognition and motor skills. + Essential tremor Pulses: Carotid and radial pulses normal +2. Diagnostic tests reviewed for today's visit: Assessment/Plan History of TIA (transient ischemic attack) Assessment: Last TIA 2019, follows with neuro, denies residual deficits. Atrial fibrillation (HCC) Assessment: Paroxysmal, on Eliquis and ASA. Follows with Dr. Sol, cardiology. CAD (coronary artery disease) Assessment: S/P CABG. Stable on RX medication. Follows with cardiology and PCP. On Eliquis and ASA,clearance received from Dr. Sol to hold Eliquis for 3 days preop, see TE in Epic. Patient is aware. ASA does not need to be help per Dr. Dailey HTN (hypertension) Assessment: Stable on RX medication Diabetes mellitus, type 2 (HCC) Assessment: Stable on oral RX. METS: Walk indoors, such as around the house (1.75 METs) Do light work around the house, such as dusting or washing dishes (2.70 METs) Take care of self; that is eating, dressing, bathing, using the toilet (2.75 METs) Climb a flight of stairs or walk up a hill (5.50 METs) Patient denies any chest pain or undue shortness of breath with the above physical activity. ASA Class: 3 ANESTHESIA FINDINGS: Intubation History: No history of difficult intubation Significant Anesthesia Considerations: None and Difficult IV/Vein Access: Patient reports extreme anxiety related to IV placement. Airway Exam: General: Normal appearance, essential tremor Mallampati Score is CLASS II ULBT: Class II - Lower incisors can bite the upper lip below the stephanie line Neck: Normal appearance and function, Distance from hyoid to mentum during neck extension is at least 3 finger breaths Mouth: Normal tongue size and Mouth opening greater than 2 finger breaths Dentition: Intact Airway History: No abnormal airway history Sleep Apnea Probability Snores loudly: No Tired, fatigued or sleepy in daytime: Yes Stops breathing or choking/gasping during sleep: No High blood pressure: Yes Sleep Apnea Probability Score 03/31/2022 Sleep Apnea Screen V2 43.88 (Sleep study not recommended) PLAN Pt optimally prepared for surgery, pending day of surgery CONSULTS: Patient does not require consults for optimization at this time. The Following Tests/Procedures Have Been Initiated: Labs not indicated per PACC protocol, EKG not indicated per PACC protocol Planned Anesthetic: Per anesthesia choice Instructions Given to Patient: Instructions located in the after visit summary. Patient given verbal and written preop instructions and voices comprehension and compliance. SIGNATURE: Cynthia Huynh APRN.CNP PATIENT NAME: Daniela Raymundo DATE: April 07, 2022 TIME: 12:08 PM documented in this encounterMedina Hospital07-05-2022 Miscellaneous Notes* Telephone Encounter - Penny Waldron RN - 04/01/2022 3:52 PM EDT GI Pre-Procedure Spoke with patient: Yes Confirmed date scheduled and patient report time: Yes Procedure Planned:Esophagogastroduodenoscopy(EGD) with or without biopies based on clinical findings, removal of polyps or lesions Is the patient on blood thinners?yes Contact PCP for instructions regarding stopping anticoagulant medication pre-procedure Patient contacted their PCP for instructions Procedure Instructions given to patient: Yes, and they verbalized their understanding of instructions given Patient instructed to take prescribed preparation prior to procedure:No Patient instructed to have family/friend present for procedure transport home:Patient/patient insurance claim representative was told that if they do not have a responsible adult accompany them to their procedure; and remain in the endoscopy area until they are discharged; that their procedure cannot be done with s edation or anesthesia and may be cancelled. and They verbalized their understanding and agree to have a responsible adult accompany the patient to their procedure and remain in the endoscopy area. Any barriers to Patient learning: Patient/Patient Event Producer responded appropriately on phone. Type of instruction given: Verbal by telephone contact. Penny Waldron RN documented in this encounterMedina Hospital07-01-2022 Miscellaneous Notes* Telephone Encounter - Norbert Dailey MD - 03/28/2022 11:56 AM EDT I spoke to the patient. She can stop the Eliquis 3 days before the procedure. I also told her that she can continue on her baby aspirin without interruption. * Telephone Encounter - Dyana Matias - 03/28/2022 10:29 AM EDTSummary: Medication Sapna called from [facility], Dr. Sol's office asking if this patient could be off of Eloquis for three days prior instead of 5 days for her EGD/Ablation on 04/08. #4 for nursing. documented in this encounterMedina Hospital05-06-2022 History of Present illness Narrative* Norbert Dailey MD - 01/31/2022 5:00 PM EDT VIRTUAL VISIT PROGRESS NOTE This is a virtual visit using a [employer] compliant virtual platform It required patient-provider interaction for the medical decision making as documented below. Daniela Raymundo is a 77 year old female seen for 77-year-old female who is being seen for evaluation of Haji's esophagus. 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 She carries a diagnosis of Haji's with multi focal low-grade dysplasia in 2019. The report would indicate a long segment of Haji's at least 8 cm in length. Presently Hx of Barretts last EGD procedure OCT 2021 ---- biopsy can not see the report CARE EVERY WHERE---- low grade dysplasia Has not been told she had dysplasia prior to this per patient ( Dr. Jones) Dr. Roberts --- removed a nodule 2.5 years ago In 2016 Care Everywhere EGD/COLON it does mention a hx of HIGH GRADE DYSPLASIA Hx of Gerd, takes PPI which works well 07/22/2015 EGD- esophageal polyp 8 mm distal esophagus suggestive of squamous papilloma we do not have biopsy results ( done at ) Allergies: Alcohol, Zetia Medications, Nexium 40 mg p.o. twice daily, Eliquis, alprazolam, Naomi, fluticasone, furosemide, levothyroxine, losartan, Januvia, potassium, enteric- coated aspirin,pitavastain Past medical history: Atrial fibrillation, coronary artery disease, hypertension, history of TIA, hypothyroidism, Past surgical history: Appendectomy, CABG, cholecystectomy, vaginal hysterectomy HISTORY REVIEWED (electronic chart updated): PAST MEDICAL HISTORY Diagnosis Date CAD (coronary artery disease) HTN (hypertension) PAST SURGICAL HISTORY Procedure Laterality Date APPENDECTOMY CABG, ARTERY-VEIN, THREE 09/28/2010 CABG, three grafts COLONOSCOP W/ OR W/O BRSH SPEC Colonoscopy EGD W/O OR W/BRUSH/WASH EGD REMOVAL GALLBLADDER Cholecystectomy VAGINAL HYSTERECTOMY Hysterectomy, vaginal FAMILY HISTORY Problem Relation Age of Onset Anesthesia Problems No Family History Blood Clots No Family History Clotting Disorder No Family History Social History Tobacco Use Smoking status: Former Smoker Types: Cigarettes Quit date: 1977 Years since quittin.3 Smokeless tobacco: Never Used Tobacco comment: 2.5-3 packs per day. Substance Use Topics Alcohol use: Not Currently Comment: allergic to etoh. Drug use: Never Current Outpatient Medications Medication Sig esomeprazole (NEXIUM) 40 mg capsule TAKE 1 CAPSULE TWICE DAILY apixaban (ELIQUIS ORAL) Take 5 mg by mouth. ALPRAZolam (XANAX) 0.5 mg tablet fexofenadine (NAOMI) 180 mg tablet fluticasone (FLONASE) 50 mcg/actuation nasal spray furosemide (LASIX) 40 mg tablet ACCU-CHEK FASTCLIX LANCET DRUM lancets levothyroxine (SYNTHROID) 75 mcg tablet losartan (COZAAR) 25 mg tablet Pitavastatin (LIVALO) 2 mg tab Take 1 tablet by mouth once daily. sitaGLIPtin (JANUVIA) 100 mg tablet Take 100 mg by mouth once daily. POTASSIUM ORAL Take 300 mg by mouth once daily. aspirin, enteric coated (ASPIRIN, ENTERIC COATED) 81 mg EC tablet Take 81 mg by mouth once daily. No current facility-administered medications for this visit. ALLERGIES Allergen Reactions Alcohol Hives Zetia [Ezetimibe] Other: See Comments Leg cramps. REVIEW OF SYSTEMS: GENERAL: feeling well without fatigue, no recent change in weight ASSESSMENT: No diagnosis found. PLAN: Assessment and plan: 77-year-old female with a history of multifocal low-grade dysplasia. The last endoscopy performed in October had biopsies which again revealed low- grade dysplasia. She has significant comorbidities including cardiac, vascular and neurologic. However she is undergone upper endoscopies without difficulty utilizing monitored anesthesia care. Her last PACC visit was in August. There have been no significant changes in her medications or medical conditions. We have discussed the approach to the esophagus with mucosal ablation utilizing radiofrequency ablation and the possibility of performing resection of any nodularity if we encountered this. We will arrange for a PICC visit followed by an endoscopy under MAC sedation with RFA. Answers for HPI/ROS submitted by the patient on 01/24/2022 Fever: No Chills: No Night Sweats: No Unitentional Weight Change: No A Cough: No Difficulty Breathing: No Chest Pain: No Belly pain: No A feeling of fullness or have belly pain after eating: No Food getting stuck in your throat or chest after eating: No Nausea - that is, a feeling like you could vomit: No Regurgitation - that is, food or liquid coming back up into your throat or mouth without vomiting, or feel burning behind your breast bone: No Loss of appetite: No To throw up or vomit: No Blood in your stools: No Black tarry stools: No Loose or watery stools: No The feeling like you need to empty your bowels right away - that is, feel as if you would have an accident: No Bowel incontinence - that is, have an accident because you cannot make it to the bathroom in time: No Problems with straining while having bowel movements , hard or lumpy stools, or feel unfinished (that you have not passed all your stool): No Pain in rectum or anus during bowel movements: No Problems with jaundice - that is, yellow discoloration of your skin or eyes, now or in the past: No Problems with having to flush the toilet more than two times due to oily stool, or see stool floating with oil: No documented in this encounterMedina HospitalEvaluation + Plan note Future Appointments Appointment Date:02/01/2024 01:00:00 PM Scheduled Provider: Location:[facility] Appointment Type:FM Medicare Wellness Subsequent Appointment Date:04/12/2024 01:00:00 PM Scheduled Provider:Sonja Quezada MD [facility] Diagnosis Haji's esophagus with low grade dysplasia- Primary Haji's esophagus [facility] Diagnosis History of TIA (transient ischemic attack) Transient ischemic attack (TIA), and cerebral infarction without residual deficits Atrial fibrillation, unspecified type (HCC) Coronary artery disease involving chilkat coronary artery of chilkat heart without angina pectoris Primary hypertension Unspecified essential hypertension Type 2 diabetes mellitus without complication, without long-term current use of insulin (HCC) documented [facility] this [facility]* Diagnosis Polyp of stomach and duodenum- Primary Benign neoplasm of stomach [facility]* Diagnosis Polyp, stomach- Primary Benign neoplasm of stomach Polyp of stomach and duodenum Benign neoplasm of stomach documented [facility]* Diagnosis Haji's esophagus with high grade dysplasia- Primary Haji's esophagus [facility]* Diagnosis Haji's esophagus with high grade dysplasia- Primary Haji's esophagus documented in [facility] Diagnosis Haji's esophagus with low grade dysplasia- Primary Haji's esophagus [facility] Diagnosis Haji's esophagus with low grade dysplasia- Primary Haji's esophagus [facility] Diagnosis Haji's esophagus determined by biopsy- Primary Haji's esophagus with low grade dysplasia Haji's esophagus [facility] Diagnosis Haji's esophagus with high grade dysplasia- Primary Haji's esophagus [facility] Diagnosis Haji's esophagus with high grade dysplasia- Primary Haji's esophagus [facility] Diagnosis Haji's esophagus with high grade dysplasia- Primary Haji's esophagus [facility] Diagnosis Haji's esophagus with high grade dysplasia- Primary Haji's esophagus [facility] Diagnosis Haji's esophagus determined by biopsy- Primary Haji's esophagus with high grade dysplasia Haji's esophagus [facility] Diagnosis Haji's esophagus with high grade dysplasia- Primary Haji's esophagus CAD (coronary artery disease) Coronary atherosclerosis of unspecified type of vessel, chilkat or graft HTN (hypertension) Unspecified essential hypertension Diabetes mellitus, type 2 (HCC) Type II or unspecified type diabetes mellitus without mention of complication, not stated as uncontrolled Atrial fibrillation (HCC) Atrial fibrillation History of TIA (transient ischemic attack) Transient ischemic attack (TIA), and cerebral infarction without residual deficits Haji's syndrome Haji's esophagus Mitral valve insufficiency Mitral valve disorders Mixed hyperlipidemia Stage 2 chronic kidney disease documented [facility] Diagnosis Haji's esophagus with high grade dysplasia- Primary Haji's esophagus documented [facility] Diagnosis Haji's esophagus with high grade dysplasia- Primary Haji's esophagus documented in this encounter [facility] note* Diagnosis Atherosclerosis of coronary artery bypass graft without angina pectoris, unspecified whether chilkat or transplanted heart- Primary Benign essential hypertension Essential hypertension, benign Hyperlipidemia, unspecified hyperlipidemia type Mitral valve insufficiency, unspecified etiology Paroxysmal atrial fibrillation (CMS/HCC) Atrial fibrillation Diabetes mellitus of other type without complication, unspecified whether senior living insulin use (CMS/HCC) TIA (transient ischemic attack) Unspecified transient cerebral ischemia Haji's esophagus with dysplasia documented in this encounter [facility] Work Phone: Evaluation note* Diagnosis Haji's esophagus determined by biopsy- Primary Haji's esophagus with high grade dysplasia Haji's esophagus documented in this encounter [facility] note* Diagnosis Haji's esophagus with high grade dysplasia- Primary Haji's esophagus documented in this encounter [facility] note* Diagnosis Haji's esophagus with low grade dysplasia- Primary Haji's esophagus documented in this encounter [facility] note* Diagnosis Other specified pre-operative examination- Primary Haji's esophagus without dysplasia Haji's esophagus Polyp of colon, unspecified part of colon, unspecified type Coronary artery disease involving chilkat coronary artery of chilkat heart without angina pectoris Essential hypertension Unspecified essential hypertension Type 2 diabetes mellitus without complication, without long-term current use of insulin (HCC) Pre-op evaluation- Primary Preoperative examination, unspecified Haji's esophagus without dysplasia Haji's esophagus History of TIA (transient ischemic attack) Transient ischemic attack (TIA), and cerebral infarction without residual deficits Atrial fibrillation, unspecified type (HCC) Coronary artery disease involving chilkat coronary artery of chilkat heart without angina pectoris Primary hypertension Unspecified essential hypertension Type 2 diabetes mellitus without complication, without long-term current use of insulin (HCC) Preoperative examination- Primary Preoperative examination, unspecified Haji's esophagus with high grade dysplasia Haji's esophagus Type 2 diabetes mellitus without complication, without long-term current use of insulin (HCC) Primary hypertension Unspecified essential hypertension Mixed hyperlipidemia Coronary artery disease involving chilkat coronary artery of chilkat heart without angina pectoris Paroxysmal atrial fibrillation (HCC) Atrial fibrillation History of TIA (transient ischemic attack) Transient ischemic attack (TIA), and cerebral infarction without residual deficits Essential tremor Essential and other specified forms of tremor Stage 2 chronic kidney disease Hypothyroidism, unspecified type Generalized anxiety disorder Haji's esophagus with high grade dysplasia- Primary Haji's esophagus [facility] Diagnosis Other specified pre-operative examination- Primary Haji's esophagus without dysplasia Haji's esophagus Polyp of colon, unspecified part of colon, unspecified type Coronary artery disease involving chilkat coronary artery of chilkat heart without angina pectoris Essential hypertension Unspecified essential hypertension Type 2 diabetes mellitus without complication, without long-term current use of insulin (HCC) Pre-op evaluation- Primary Preoperative examination, unspecified Haji's esophagus without dysplasia Haji's esophagus History of TIA (transient ischemic attack) Transient ischemic attack (TIA), and cerebral infarction without residual deficits Atrial fibrillation, unspecified type (HCC) Coronary artery disease involving chilkat coronary artery of chilkat heart without angina pectoris Primary hypertension Unspecified essential hypertension Type 2 diabetes mellitus without complication, without long-term current use of insulin (HCC) Preoperative examination- Primary Preoperative examination, unspecified Haji's esophagus with high grade dysplasia Haji's esophagus Type 2 diabetes mellitus without complication, without long-term current use of insulin (HCC) Primary hypertension Unspecified essential hypertension Mixed hyperlipidemia Coronary artery disease involving chilkat coronary artery of chilkat heart without angina pectoris Paroxysmal atrial fibrillation (HCC) Atrial fibrillation History of TIA (transient ischemic attack) Transient ischemic attack (TIA), and cerebral infarction without residual deficits Essential tremor Essential and other specified forms of tremor Stage 2 chronic kidney disease Hypothyroidism, unspecified type Generalized anxiety disorder Haji's esophagus determined by biopsy- Primary Haji's esophagus with low grade dysplasia Haji's esophagus [facility] Diagnosis Other specified pre-operative examination- Primary Haji's esophagus without dysplasia Haji's esophagus Polyp of colon, unspecified part of colon, unspecified type Coronary artery disease involving chilkat coronary artery of chilkat heart without angina pectoris Essential hypertension Unspecified essential hypertension Type 2 diabetes mellitus without complication, without long-term current use of insulin (HCC) Pre-op evaluation- Primary Preoperative examination, unspecified Haji's esophagus without dysplasia Haji's esophagus History of TIA (transient ischemic attack) Transient ischemic attack (TIA), and cerebral infarction without residual deficits Atrial fibrillation, unspecified type (HCC) Coronary artery disease involving chilkat coronary artery of chilkat heart without angina pectoris Primary hypertension Unspecified essential hypertension Type 2 diabetes mellitus without complication, without long-term current use of insulin (HCC) Preoperative examination- Primary Preoperative examination, unspecified Haji's esophagus with high grade dysplasia Haji's esophagus Type 2 diabetes mellitus without complication, without long-term current use of insulin (HCC) Primary hypertension Unspecified essential hypertension Mixed hyperlipidemia Coronary artery disease involving chilkat coronary artery of chilkat heart without angina pectoris Paroxysmal atrial fibrillation (HCC) Atrial fibrillation History of TIA (transient ischemic attack) Transient ischemic attack (TIA), and cerebral infarction without residual deficits Essential tremor Essential and other specified forms of tremor Stage 2 chronic kidney disease Hypothyroidism, unspecified type Generalized anxiety disorder Haji's esophagus with high grade dysplasia- Primary Haji's esophagus [facility] Diagnosis Other specified pre-operative examination- Primary Haji's esophagus without dysplasia Haji's esophagus Polyp of colon, unspecified part of colon, unspecified type Coronary artery disease involving chilkat coronary artery of chilkat heart without angina pectoris Essential hypertension Unspecified essential hypertension Type 2 diabetes mellitus without complication, without long-term current use of insulin (HCC) Pre-op evaluation- Primary Preoperative examination, unspecified Haji's esophagus without dysplasia Haji's esophagus History of TIA (transient ischemic attack) Transient ischemic attack (TIA), and cerebral infarction without residual deficits Atrial fibrillation, unspecified type (HCC) Coronary artery disease involving chilkat coronary artery of chilkat heart without angina pectoris Primary hypertension Unspecified essential hypertension Type 2 diabetes mellitus without complication, without long-term current use of insulin (HCC) Preoperative examination- Primary Preoperative examination, unspecified Haji's esophagus with high grade dysplasia Haji's esophagus Type 2 diabetes mellitus without complication, without long-term current use of insulin (HCC) Primary hypertension Unspecified essential hypertension Mixed hyperlipidemia Coronary artery disease involving chilkat coronary artery of chilkat heart without angina pectoris Paroxysmal atrial fibrillation (HCC) Atrial fibrillation History of TIA (transient ischemic attack) Transient ischemic attack (TIA), and cerebral infarction without residual deficits Essential tremor Essential and other specified forms of tremor Stage 2 chronic kidney disease Hypothyroidism, unspecified type Generalized anxiety disorder Haji's esophagus with low grade dysplasia- Primary Haji's esophagus [facility] Diagnosis Atherosclerosis of coronary artery bypass graft without angina pectoris, unspecified whether chilkat or transplanted heart Hx of CABG Postsurgical aortocoronary bypass status Essential hypertension Unspecified essential hypertension Mixed hyperlipidemia Paroxysmal atrial fibrillation (Multi) Atrial fibrillation Haji's esophagus with dysplasia Gastroesophageal reflux disease, unspecified whether esophagitis present TIA (transient ischemic attack) Unspecified transient cerebral ischemia Mitral valve insufficiency, unspecified etiology Type 2 diabetes mellitus without complication, without long-term current use of insulin (Multi) Essential tremor Overweight with body mass index (BMI) of 26 to 26.9 in adult Former smoker Personal history of tobacco use, presenting hazards to health documented in this encounter [facility] Work Phone: Evaluation noteNo assessment information available [facility] Work Phone: Evaluation note* Diagnosis Atherosclerosis of coronary artery bypass graft without angina pectoris, unspecified whether chilkat or transplanted heart- Primary Mixed hyperlipidemia Paroxysmal atrial fibrillation (Multi) Atrial fibrillation Essential hypertension Unspecified essential hypertension BMI 24.0-24.9, adult Stage 3b chronic kidney disease (Multi) Type 2 diabetes mellitus with other specified complication, without long-term current use of insulin alf (current) use of anticoagulants Long-term (current) use of anticoagulants documented in this encounter [facility] Work Phone: Evaluation note* Diagnosis Bradycardia, unspecified Bradycardia, unspecified documented in this encounter [facility] Work Phone: Evaluation note* Diagnosis Other specified pre-operative examination- Primary Haji's esophagus without dysplasia Haji's esophagus Polyp of colon, unspecified part of colon, unspecified type Coronary artery disease involving chilkat coronary artery of chilkat heart without angina pectoris Essential hypertension Unspecified essential hypertension Type 2 diabetes mellitus without complication, without long-term current use of insulin (HCC) Pre-op evaluation- Primary Preoperative examination, unspecified Haji's esophagus without dysplasia Haji's esophagus History of TIA (transient ischemic attack) Transient ischemic attack (TIA), and cerebral infarction without residual deficits Atrial fibrillation, unspecified type (HCC) Coronary artery disease involving chilkat coronary artery of chilkat heart without angina pectoris Primary hypertension Unspecified essential hypertension Type 2 diabetes mellitus without complication, without long-term current use of insulin (HCC) Preoperative examination- Primary Preoperative examination, unspecified Haji's esophagus with high grade dysplasia Haji's esophagus Type 2 diabetes mellitus without complication, without long-term current use of insulin (HCC) Primary hypertension Unspecified essential hypertension Mixed hyperlipidemia Coronary artery disease involving chilkat coronary artery of chilkat heart without angina pectoris Paroxysmal atrial fibrillation (HCC) Atrial fibrillation History of TIA (transient ischemic attack) Transient ischemic attack (TIA), and cerebral infarction without residual deficits Essential tremor Essential and other specified forms of tremor Stage 2 chronic kidney disease Hypothyroidism, unspecified type Generalized anxiety disorder Haji's esophagus with low grade dysplasia Haji's esophagus documented in this encounter [facility] course Narrative No data available for this section [facility] Discharge instructions No data available for this section [facility] Discharge instructions Additional Instructions If your symptoms return/worsen or you develop any further concerns or symptoms please see your doctor or return to the emergency department immediately. It is imperative that you go over today's visit and all results with your primary care provider.[facility] Work Phone: Hospital Discharge instructions Additional Instructions Dietitian recommendations: Ensure plus, 1 container, twice daily with meals DISCHARGE INSTRUCTIONS FOR ANGIOPLASTY/CORONARY/PERIPHERAL/STENT IMPLANT FOR ADULT ANTICOAGULATION -Since the greatest risk of a blood clot forming with the stent occurs in the first 2-3 weeks after implantation, you will need to take anticoagulants for at least 12 months. ANTICOAGULATION MEDICATION: Aspirin 81mg once a day and Clopidogrel (Plavix) 75mg once a day STATIN MEDICATION: Livalo 2 mg daily Drug-Eluting Stent (RUSTY) duration DO NOT discontinue Plavix/Aspirin during the first few months regardless of what you are advised by your family doctor or pharmacist, without first calling the learning support aide who implanted the stent. If you require pain relief during this time, please take only ACETAMINOPHEN (TYLENOL)- NO additional aspirin or ibuprofen. DISCHARGE ACTIVITIES ARE FOLLOWS: First week after discharge: -Take it easy at home, no strenuous activity. -Do not lift or pull objects over 10-15 pounds, including children, and groceries for four weeks. If puncture site is at wrist do NOT lift more than three pounds for three days. - May walk up stairs. -May shower. -No excessive scrubbing of the affected site (groin). -May ride in car. -May resume sexual intercourse after 1-2 weeks. -No MRI for 12 days. -May drive in 4-7 days. -If puncture site is at the wrist do not manipulate the wrist for 24 hours, and no soaking wrist for three days. Second Week: -May take a bath -May start walking 3 times a week for 15-20 minutes at a leisurely pace. You should be able to carry on a conversation comfortably without feeling winded. -No strenuous activity as in jogging, running, weight lifting, stair steppers, etc. until the learning support aide approves these activities. Check with the learning support aide on your first follow-up visit. CALL YOUR LEAD SECTION SUPERVISOR: -If bleeding should occur from the catheter insertion site- apply pressure to the site then immediately call us. -Report any fever, redness, drainage, increased swelling, or firmness at the catheter insertion site. Some bruising or slight swelling may be present at the time of discharge. -Should arm or leg become cold, numb, white, or blue, contact the learning support aide immediately. -IF you should experience episodes of angina, e.g. chest discomfort, heaviness, tightness, pressure burning with or without radiation to the neck, jaw, arms or back- use 1 Nitrostat tablet under your tongue every 5-10 minutes and up to three tablets. IF NO RELIEF, CALL 911 or GO TO THE NEAREST EMERGENCY ROOM. -Please notify our office if you have recurrent angina. -Cardiac Rehab Education Provided. Participation in the Cardiopulmonary Rehabilitation program is recommended. The attending learning support aide or a nurse clinician should provide you with specific instructions regarding activity, diet, medications, and further follow up for you. Follow the medication instructions provided on your discharge. If the dosages and instructions on this sheet differ from the dosage and instructions on the bottle, follow the instructions on the bottle. [facility] is not responsible for incorrect prescription information provided by the patient during their visit. Do not stop your medications without consulting your health care provider. Please take the list with you to your next doctor's appointment.[facility] Work Phone: Progress note No data available for this section [facility] for referral (narrative)* Outpatient Procedure (Routine) - Pending Review Specialty Diagnoses / Procedures Referred By Jamari t Referred To [facility] Diagnoses Polyp of stomach and duodenum Procedures EGD - THERAPEUTIC, EUS, OR TUBE INTERVENTIONS EGD TRANSORAL ENDOSCOPIC MUCOSAL RESECTION Norbert Dailey MD [address] [place], [place] [id number] [address] [address] Referral ID Status Reason Start Date Expiration Date Visits Requested Visits Authorized [id number] Pending Review Auto-Generat ed Referral 05/05/2022 05/05/2023 1 1 [facility] for referral (narrative)* Outpatient Procedure (Routine) - Closed Specialty Diagnoses / Procedures [facility] Diagnoses Polyp of stomach and duodenum Procedures EGD - THERAPEUTIC, EUS, OR TUBE INTERVENTIONS EGD TRANSORAL ENDOSCOPIC MUCOSAL RESECTION Norbert Dailey MD [address] [place], [place] [id number] [address] [address] Referral ID Status Reason Start Date Expiration Date V isits Requested Visits Authorized [id number] Closed Auto-Generate d Referral 05/05/2022 05/05/2023 1 1 T [facility] for referral (narrative)* Outpatient Procedure (Routine) - Pending Review Specialty Diagnoses / Procedures [facility] Diagnoses Haji's esophagus with high grade dysplasia Procedures EGD - THERAPEUTIC, EUS, OR TUBE INTERVENTIONS EGD ABLATE TUMOR POLYP/LESION W/DILATION& WIRE Norbert Dailey MD [address] [place] [id number] [address] Referral ID Status Reason Start Date Expiration Date Visits Requested Visits Authorized [id number] Pending Review Auto-Generat ed Referral 05/27/2022 05/27/2023 1 1 [facility] for referral (narrative)* Outpatient Procedure (Routine) - Authorized Specialty Diagnoses / Procedures Referred By Jamari reese Referred To Contact [facility] Diagnoses Haji's esophagus with low grade dysplasia Procedures EGD - THERAPEUTIC, EUS, OR TUBE INTERVENTIONS EGD ABLATE TUMOR POLYP/LESION W/DILATION& WIRE Norbert Dailey MD [address] [place], [place] [id number] [address] [address] Referral ID Status Reason Start Date Expiration Date Visits Requested Visits Authorized [id number] Authorized Auto-Generat ed Referral 09/24/2023 1 1 [facility] for referral (narrative)* Outpatient Procedure (Routine) - Closed Specialty Diagnoses / Procedures Referred By Jamari reese Referred To Contact [facility] Diagnoses Haji's esophagus with low grade dysplasia Procedures EGD - THERAPEUTIC, EUS, OR TUBE INTERVENTIONS EGD ABLATE TUMOR POLYP/LESION W/DILATION& WIRE Norbert Dailey MD [address] [place] [address] [address] Referral ID Status Reason Start Date Expiration Date V isits Requested Visits Authorized [id number] Closed Auto-Generate d Referral 09/24/2022 09/24/2023 1 1 [facility] for referral (narrative)* Outpatient Procedure (Routine) - Pending Review Specialty Diagnoses / Procedures Referred By Jamari reese Referred To Contact [facility] Diagnoses Haji's esophagus with high grade dysplasia Procedures EGD - THERAPEUTIC, EUS, OR TUBE INTERVENTIONS EGD ABLATE TUMOR POLYP/LESION W/DILATION& WIRE Norbert Dailey MD [address] [place] [address] [facility] [address] [place] [address] Referral ID Status Reason Start Date Expiration Date Visits Requested Visits Authorized [id number] Pending Review Auto-Generat ed Referral 10/30/2022 10/30/2023 1 1 [facility] for referral (narrative)* Outpatient Procedure (Routine) - Closed Specialty Diagnoses / Procedures Referred By Jamari reese Referred To Contact [facility] Diagnoses Haji's esophagus with high grade dysplasia Procedures EGD - THERAPEUTIC, EUS, OR TUBE INTERVENTIONS EGD ABLATE TUMOR POLYP/LESION W/DILATION& WIRE Norbert Dailey MD [address] [place] [address] [place] [id number] Referral ID Status Reason Start Date Expiration Date V isits Requested Visits Authorized [id number] Closed Auto-Generate d Referral 10/30/2022 10/30/2023 1 1 [facility] for referral (narrative)* Outpatient Procedure (Routine) - Pending Review Specialty Diagnoses / Procedures Referred By Jamari reese Referred To Contact [facility] Diagnoses Haji's esophagus with high grade dysplasia Procedures EGD - THERAPEUTIC, EUS, OR TUBE INTERVENTIONS EGD ABLATE TUMOR POLYP/LESION W/DILATION& WIRE Norbert Dailey MD [address] [place], [place] [id number] [address] [address] Referral ID Status Reason Start Date Expiration Date Visits Requested Visits Authorized [id number] Pending Review Auto-Generat ed Referral 12/26/2022 12/27/2023 1 1 [facility] for referral (narrative)* Outpatient Procedure (Routine) - Authorized Specialty Diagnoses / Procedures Referred By Jamari t Referred To Contact [facility] Diagnoses Haji's esophagus with high grade dysplasia Procedures EGD - THERAPEUTIC, EUS, OR TUBE INTERVENTIONS EGD ABLATE TUMOR POLYP/LESION W/DILATION& WIRE Norbert Dailey MD [address] [place], [place] [id number] [address] [address] Referral ID Status Reason Start Date Expiration Date Visits Requested Visits Authorized [id number] Authorized Auto-Generat ed Referral 02/26/2023 02/27/2024 1 1 [facility] for referral (narrative)* Outpatient Procedure (Routine) - Closed Specialty Diagnoses / Procedures Referred By Jamari reese Referred To Contact [facility] Diagnoses Haji's esophagus with high grade dysplasia Procedures EGD - THERAPEUTIC, EUS, OR TUBE INTERVENTIONS EGD ABLATE TUMOR POLYP/LESION W/DILATION& WIRE Norbert Dailey MD [address] [place], [place] [id number] [place] [id number] Referral ID Status Reason Start Date Expiration Date V isits Requested Visits Authorized [id number] Closed Auto-Generate d Referral 12/26/2022 12/27/2023 1 1 [facility] for referral (narrative)* Outpatient Procedure (Routine) - Closed Specialty Diagnoses / Procedures Referred By Jamari reese Referred To Contact [facility] Diagnoses Haji's esophagus with high grade dysplasia Procedures EGD - THERAPEUTIC, EUS, OR TUBE INTERVENTIONS EGD ABLATE TUMOR POLYP/LESION W/DILATION& WIRE Norbert Dailey MD [address] [place] [address] [address] Referral ID Status Reason Start Date Expiration Date V isits Requested Visits Authorized [id number] Closed Auto-Generate d Referral 02/26/2023 02/27/2024 1 1 T [facility] for referral (narrative)* Outpatient Procedure (Routine) - Pending Review Specialty Diagnoses / Procedures Referred By Jamari reese Referred To [facility] Diagnoses Haji's esophagus with high grade dysplasia Procedures EGD - THERAPEUTIC, EUS, OR TUBE INTERVENTIONS EGD ABLATE TUMOR POLYP/LESION W/DILATION& WIRE Norbert Dailey MD [address] [place] [address] [address] Referral ID Status Reason Start Date Expiration Date Visits Requested Visits Authorized [id number] Pending Review Auto-Generat ed Referral 07/16/2024 1 1 [facility] for referral (narrative)* Outpatient Procedure (Routine) - Closed Specialty Diagnoses / Procedures Referred By Jamari reese Referred To Contact [facility] Diagnoses Haji's esophagus with high grade dysplasia Procedures EGD - THERAPEUTIC, EUS, OR TUBE INTERVENTIONS EGD ABLATE TUMOR POLYP/LESION W/DILATION& WIRE Norbert Dailey MD [address] [place] [address] [address] Referral ID Status Reason Start Date Expiration Date V isits Requested Visits Authorized [id number] Closed Auto-Generate d Referral 05/08/2023 05/08/2024 1 1 [facility] for referral (narrative)* Consultation (Routine) - Authorized Specialty Diagnoses / Procedures Referred By Jamari reese Referred To Contact Cardiology Diagnoses Atherosclerosis of coronary artery bypass graft without angina pectoris, unspecified whether chilkat or transplanted heart Procedures Follow Up In Cardiology Michele Sol DO [address] [place] [address], [address] [address] Michele Sol DO 703 [facility] 2, [address] [address] Referral ID Status Reason Start Date Expiration Date V isits Requested Visits Authorized [id number] Authorized 08/04/2023 08/03/2024 1 1 [facility] Work Phone: [facility] for referral (narrative)* Outpatient Procedure (Routine) - Closed Specialty Diagnoses / Procedures Referred By Contac t Referred To Contact [facility] Diagnoses Haji's esophagus with high grade dysplasia Procedures EGD - THERAPEUTIC, EUS, OR TUBE INTERVENTIONS EGD ABLATE TUMOR POLYP/LESION W/DILATION& WIRE Norbert Dailey MD [address] [place], [place] [phone] [address] [address] Referral ID Status Reason Start Date Expiration Date V isits Requested Visits Authorized [id number] Closed Auto-Generate d Referral 09/29/2023 09/29/2024 1 1 T [facility] for referral (narrative)* Outpatient Procedure (Routine) - Authorized Specialty Diagnoses / Procedures Referred By Contac t Referred To Contact [facility] Diagnoses Haji's esophagus with high grade dysplasia Procedures EGD - THERAPEUTIC, EUS, OR TUBE INTERVENTIONS EGD ABLATE TUMOR POLYP/LESION W/DILATION& WIRE Norbert Dailey MD [address] [place], [place] [phone] [address] [address] Referral ID Status Reason Start Date Expiration Date Visits Requested Visits Authorized [id number] Authorized Auto-Generat ed Referral 01/04/2024 01/03/2025 1 1 T [facility] for referral (narrative)* Outpatient Procedure (Routine) - Closed Specialty Diagnoses / Procedures Referred By Contac t Referred To Contact [facility] Diagnoses Haji's esophagus with high grade dysplasia Procedures EGD - THERAPEUTIC, EUS, OR TUBE INTERVENTIONS EGD ABLATE TUMOR POLYP/LESION W/DILATION& WIRE Norbert Dailey MD [address] [place] [address] [address] Referral ID Status Reason Start Date Expiration Date V isits Requested Visits Authorized [id number] Closed Auto-Generate d Referral 01/04/2024 01/03/2025 1 1 [facility] for referral (narrative)* Outpatient Procedure (Routine) - Authorized Specialty Diagnoses / Procedures Referred By Jamari reese Referred To [facility] Diagnoses Haji's esophagus with low grade dysplasia Procedures EGD - THERAPEUTIC, EUS, OR TUBE INTERVENTIONS EGD ABLATE TUMOR POLYP/LESION W/DILATION& WIRE Norbert Dailey MD [address] [place], [place] [phone] [address] [address] Referral ID Status Reason Start Date Expiration Date Visits Requested Visits Authorized [id number] Authorized Auto-Generat ed Referral 04/11/2024 04/11/2025 1 1 [facility] for referral (narrative)* Outpatient Procedure (Routine) - New Request Specialty Diagnoses / Procedures Referred By Jamari reese Referred To [facility] Diagnoses Haji's esophagus with high grade dysplasia Procedures EGD - THERAPEUTIC, EUS, OR TUBE INTERVENTIONS EGD ABLATE TUMOR POLYP/LESION W/DILATION& WIRE Norbert Dailey MD [address] [place] [phone] [address] Referral ID Status Reason Start Date Expiration Date Visits Requested Visits Authorized [id number] New Request Auto-Generat ed Referral 06/13/2024 06/13/2025 1 1 T [facility] for referral (narrative)* Outpatient Procedure (Routine) - Closed Specialty Diagnoses / Procedures Referred By Jamari reese Referred To [facility] Diagnoses Haji's esophagus with low grade dysplasia Procedures EGD - THERAPEUTIC, EUS, OR TUBE INTERVENTIONS EGD ABLATE TUMOR POLYP/LESION W/DILATION& WIRE Norbert Dailey MD [address] [place] [address] [address] Referral ID Status Reason Start Date Expiration Date V isits Requested Visits Authorized [id number] Closed Auto-Generate d Referral 04/11/2024 04/11/2025 1 1 [facility] for referral (narrative)* Outpatient Procedure (Routine) - Closed Specialty Diagnoses / Procedures Referred By Contac t Referred To Contact [facility] Diagnoses Haji's esophagus with high grade dysplasia Procedures EGD - THERAPEUTIC, EUS, OR TUBE INTERVENTIONS EGD ABLATE TUMOR POLYP/LESION W/DILATION& WIRE Norbert Dailey MD [address] [place] [address] [facility] [address] [place] [address] Referral ID Status Reason Start Date Expiration Date V isits Requested Visits Authorized [id number] Closed Auto-Generate d Referral 06/13/2024 06/13/2025 1 1 [facility] for referral (narrative)* Outpatient Procedure (Routine) - New Request Specialty Diagnoses / Procedures Referred By Jamari reese Referred To Contact [facility] Diagnoses Haji's esophagus with low grade dysplasia Procedures EGD - THERAPEUTIC, EUS, OR TUBE INTERVENTIONS EGD ABLATE TUMOR POLYP/LESION W/DILATION& WIRE Norbert Dailey MD [address] [place] [address] [address] Referral ID Status Reason Start Date Expiration Date Visits Requested Visits Authorized [id number] New Request Auto-Generat ed Referral 08/10/2025 1 1 [facility] for referral (narrative)* Consultation (Routine) - Authorized Specialty Diagnoses / Procedures Referred By Contac t Referred To Contact Cardiology Diagnoses Atherosclerosis of coronary artery bypass graft without angina pectoris, unspecified whether chilkat or transplanted heart Procedures Follow Up In Cardiology Michele Sol, [address] [place] [address], [address] [address] Michele Sol DO 703 [facility] 2, [address] [place] [address] Referral ID Status Reason Start Date Expiration Date V isits Requested Visits Authorized [id number] Authorized 06/07/2024 06/07/2025 1 1 [facility] Work Phone: [employer] for visit Narrative* Outpatient Procedure (Routine) - Closed Specialty Diagnoses / Procedures Referred By Contac t Referred To Contact [facility] Diagnoses Polyp of stomach and duodenum Procedures EGD - THERAPEUTIC, EUS, OR TUBE INTERVENTIONS EGD TRANSORAL ENDOSCOPIC MUCOSAL RESECTION Norbert Dailey MD [address] [place], [place] [phone] [address] [address] Referral ID Status Reason Start Date Expiration Date V isits Requested Visits Authorized [id number] Closed Auto-Generate d Referral 05/05/2022 05/05/2023 1 1 [facility] for visit Narrative* Outpatient Procedure (Routine) - Closed Specialty Diagnoses / Procedures Referred By Contac t Referred To Contact [facility] Diagnoses Haji's esophagus with high grade dysplasia Procedures EGD - THERAPEUTIC, EUS, OR TUBE INTERVENTIONS EGD ABLATE TUMOR POLYP/LESION W/DILATION& WIRE Norbert Dailey MD [address] [place] [address] [address] Referral ID Status Reason Start Date Expiration Date V isits Requested Visits Authorized [id number] Closed Auto-Generate d Referral 10/30/2022 10/30/2023 1 1 [facility] for visit Narrative* Outpatient Procedure (Routine) - Closed Specialty Diagnoses / Procedures Referred By Contac t Referred To Contact [facility] Diagnoses Haji's esophagus with high grade dysplasia Procedures EGD - THERAPEUTIC, EUS, OR TUBE INTERVENTIONS EGD ABLATE TUMOR POLYP/LESION W/DILATION& WIRE Norbert Dailey MD [address] [place] [address] [facility] [place] [address] [place] [address] Referral ID Status Reason Start Date Expiration Date V isits Requested Visits Authorized [id number] Closed Auto-Generate d Referral 12/26/2022 12/27/2023 1 1 [facility] for visit Narrative* Outpatient Procedure (Routine) - Closed Specialty Diagnoses / Procedures Referred By Jamari t Referred To Contact [facility] Diagnoses Haji's esophagus with high grade dysplasia Procedures EGD - THERAPEUTIC, EUS, OR TUBE INTERVENTIONS EGD ABLATE TUMOR POLYP/LESION W/DILATION& WIRE Norbert Dailey MD [address] [place] [address] [address] Referral ID Status Reason Start Date Expiration Date V isits Requested Visits Authorized [id number] Closed Auto-Generate d Referral 02/26/2023 02/27/2024 1 1 [facility] for visit Narrative* Outpatient Procedure (Routine) - Closed Specialty Diagnoses / Procedures Referred By Jamari t Referred To Contact [facility] Diagnoses Haji's esophagus with high grade dysplasia Procedures EGD - THERAPEUTIC, EUS, OR TUBE INTERVENTIONS EGD ABLATE TUMOR POLYP/LESION W/DILATION& WIRE Norbert Dailey MD [address] [place] [address] [facility] [address] [place] [address] Referral ID Status Reason Start Date Expiration Date V isits Requested Visits Authorized [id number] Closed Auto-Generate d Referral 05/08/2023 05/08/2024 1 1 [facility] for visit Narrative* Outpatient Procedure (Routine) - Closed Specialty Diagnoses / Procedures Referred By Jamari t Referred To Contact [facility] Diagnoses Haji's esophagus with high grade dysplasia Procedures EGD - THERAPEUTIC, EUS, OR TUBE INTERVENTIONS EGD ABLATE TUMOR POLYP/LESION W/DILATION& WIRE Norbert Dailey MD [address] [place] [address] [place] [address] Referral ID Status Reason Start Date Expiration Date V isits Requested Visits Authorized [id number] Closed Auto-Generate d Referral 09/29/2023 09/29/2024 1 1 [facility] for visit Narrative* Outpatient Procedure (Routine) - Closed Specialty Diagnoses / Procedures Referred By Contac t Referred To Contact [facility] Diagnoses Haji's esophagus with high grade dysplasia Procedures EGD - THERAPEUTIC, EUS, OR TUBE INTERVENTIONS EGD ABLATE TUMOR POLYP/LESION W/DILATION& WIRE Norbert Dailey MD [address] [place] [address] [address] Referral ID Status Reason Start Date Expiration Date V isits Requested Visits Authorized [id number] Closed Auto-Generate d Referral 01/04/2024 01/03/2025 1 1 [facility] for visit Narrative* Outpatient Procedure (Routine) - Closed Specialty Diagnoses / Procedures Referred By Contac t Referred To Contact [facility] Diagnoses Haji's esophagus with low grade dysplasia Procedures EGD - THERAPEUTIC, EUS, OR TUBE INTERVENTIONS EGD ABLATE TUMOR POLYP/LESION W/DILATION& WIRE Norbert Dailey MD [address] [place] [address] [address] Referral ID Status Reason Start Date Expiration Date V isits Requested Visits Authorized [id number] Closed Auto-Generate d Referral 04/11/2024 04/11/2025 1 1 [facility] for visit Narrative* Outpatient Procedure (Routine) - Closed Specialty Diagnoses / Procedures Referred By Contac t Referred To Contact [facility] Diagnoses Haji's esophagus with high grade dysplasia Procedures EGD - THERAPEUTIC, EUS, OR TUBE INTERVENTIONS EGD ABLATE TUMOR POLYP/LESION W/DILATION& WIRE Norbert Dailey MD [address] [place] [phone] [address] Referral ID Status Reason Start Date Expiration Date V isits Requested Visits Authorized [id number] Closed Auto-Generate d Referral 06/13/2024 06/13/2025 1 [facility] Cardiovascular (Routine) - Authorized Specialty Diagnoses / Procedures Referred By Jamari reese Referred To Contact Diagnoses Paroxysmal atrial fibrillation (Multi) Procedures ECG 12 Lead Gilberto Gaona, MILLINERY COP[employer]IST-PEARL FISHERMAN [address] [facility] 2, [address] [place] [address] Phone: tel: fax: Referral ID Status Reason Start Date Expiration Date V isits Requested Visits Authorized [id number] Authorized 03/08/2025 03/08/2026 1 1 [facility] Work Phone: [employer] for visit Narrative* Outpatient Procedure (Routine) - Closed Specialty Diagnoses / Procedures Referred By Jamari reese Referred To Contact [facility] Diagnoses Haji's esophagus with low grade dysplasia Procedures EGD - THERAPEUTIC, EUS, OR TUBE INTERVENTIONS EGD ABLATE TUMOR POLYP/LESION W/DILATION& WIRE Norbert Dailey MD [address] [place] [address] Phone: tel: fax: [facility] [address] [place] [address] Referral ID Status Reason Start Date Expiration Date V isits Requested Visits Authorized [id number] Closed Auto-Generate d Referral 08/10/2024 08/10/2025 1 1 [facility] Family History No Family History Records FoundUnknown Family Member Name Dates Details No pertinent family history: Mother, Father, Sibling(V49.89, Z78.9) Status:Active Unknown Family Member Name Dates Details No pertinent family history: Mother, Father, Sibling, Son(V49.89, Z78.9) Status:Active Unknown Family Member Name Dates Details No pertinent family history: Mother, Father, Sibling, Son(V49.89, Z78.9) Status:Active Unknown Family Member Name Dates Details No pertinent family history: Mother, Father, Sibling, Son(V49.89, Z78.9) Status:Active Unknown Family Member Name Dates Details No pertinent family history: Mother, Father, Sibling, Son(V49.89, Z78.9) Status:Active Relationship Condition Age at Onset Recorded Date/T marcell father Malignant neoplasm Unknown mother Malignant neoplasm Unknown Summary Purpose Advance Directives No Advanced Directives Records FoundDocuments on File Type Date Recorded Patient Event Producer Expl anation Advance Directive(s) 07/08/2019 11:23 AM Documents on File Type Date Recorded Patient Event Producer Expl anation Advance Directive(s) 02/27/2022 4:42 PM Advance Directive(s) 07/08/2019 11:23 AM Latest Code Status on File Code Status Date Activated Date Inactivated Comments Full Code 08/01/2022 4:27 PM 08/05/2022 7:16 PM Full Code Order Discussed With: Surrogate Decisi on Maker Patient Latest Code Status on File Code Status Date Activated Date Inactivated Comments Full Code 08/01/2022 4:27 PM 08/05/2022 7:16 PM Latest Code Status on File Code Status Date Activated Date Inactivated Comments Full Code 08/01/2022 4:27 PM 08/05/2022 7:16 PM Question Answer Comments Full Code Order Discussed With: Surrogate Decisi on Maker Patient Latest Code Status on File Code Status Date Activated Date Inactivated Comments Full Code 08/01/2022 4:27 PM 08/05/2022 7:16 PM Question Answer Comments Full Code Order Discussed With: Surrogate Decisi on Maker Patient Date Activated Date Inactivated Comments 08/01/2022 4:27 PM 08/05/2022 7:16 PM Question Answer Comments Full Code Order Discussed With: Surrogate Decisi on MakerPatient Date Activated Date Inactivated Comments 08/01/2022 4:27 PM 08/05/2022 7:16 PM Question Answer Comments Full Code Order Discussed With: Surrogate Decisi on MakerPatient Advance Directive Response Recorded Date/ Time Advance Directives No May 5:47pm Reason for Referral Specialty Diagnoses / Procedures Referred By Contameya t Referred To Contact Diagnoses Haji's esophagus with low grade dysplasia Procedures REFER TO [facility] - PRE ANESTHESIA CONSULTATION CLINIC OFFICE/OUTPATIENT [facility] MDM 60-74 MINUTES Norbert Dailey MD [address] [place] [address] Referral ID Status Reason Start Date Expiration Date Visits Requested Visits Authorized [id number] Authorized PCP Requested Referral 01/31/2022 01/31/2023 1 1 Specialty Diagnoses / Procedures Referred By Contac t Referred To Contact [facility] Diagnoses Haji's esophagus with low grade dysplasia Procedures EGD - THERAPEUTIC, EUS, OR TUBE INTERVENTIONS EGD ABLATE TUMOR POLYP/LESION W/DILATION& WIRE Norbert Dailey MD [address] [place] [address] [facility] Disease [place] [address] [place] [address] Referral ID Status Reason Start Date Expiration Date Visits Requested Visits Authorized [id number] Pending Review Auto-Generat ed Referral 01/31/2022 01/31/2023 1 1 Medications Administered Section Inactive Administered Medications - up to 3 most recent administrations Medication Order MAR Action Action Date Dose Rate Site fentaNYL 50 mcg/mL 25-50 mcg injection (SUBLIMAZE) 25-50 mcg, INTRAVENOUS, ONCE, 1 dose, On Thu05/22/22 at 1600 Given 05/22/2022 3:48 PM EDT 25 mcg Inactive Administered Medications - up to 3 most recent administrations Medication Order MAR Action Action Date Dose Rate Site NaCl 0.9% iv infusion 30 mL/hr, INTRAVENOUS, CONTINUOUS, Starting on Thu02/26/23 at 1300, Until Thu02/27/23 at 0423, Preprocedure New Bag/Syringe/Bottle 02/26/2023 12:44 PM EDT 30 mL/hr 30 mL/hr Inactive Administered Medications - up to 3 most recent administrations Medication Order MAR Action Action Date Dose Rate Site NaCl 0.9% iv infusion 30 mL/hr, INTRAVENOUS, CONTINUOUS, Starting on Thu05/07/23 at 1400, Until Thu05/08/23 at 1226, Preprocedure New Bag/Syringe/Bottle 05/07/2023 2:00 PM EDT 30 mL/hr 30 mL/hr Chief Complaint * DANIELA RAYMUNDO is being seen for an annual follow-up of. * 77-year-old female returns for annual follow-up and is doing well other than increasing exertional dyspnea. She has a history of ASHD, three-vessel CABG in 2010, paroxysmal atrial fibrillation in thepast currently treated with Eliquis, Holter monitoring revealing baseline rhythm with sinus rhythm with episodic A. fib. * She denies any bleeding, thromboembolic events, heart failure hospitalizations or nitrate usage * Patient has essential tremor, is undergoing halo esophageal intervention with Dr. Haro and will need to hold her Eliquis at least 3 days prior to intervention and then reestablish Eliquis therapy 1to 2 days thereafterwards. * Will proceed with Lexiscan stress imaging as its been 11 years since her intervention and above-mentioned new symptoms. We will follow-up otherwise in 1 year or sooner Chief Complaint and Reason for Visit Chief Complaint Admit Date chest pains, sent by December 05, 2024 12:31pm Chief Complaint Admit Date chest pains, sent by December 05, 2024 12:31pm cp February 11, 2025 3:56p m Reason for Visit Admit Date Acute coronary syndrome February 11, 2025 3 :56pm Angina at rest February 11, 2025 3:56p m Atrial fibrillation with RVR February 11, 2 025 3:56pm Chronic kidney disease February 11, 2025 3: 56pm Coronary artery disease February 11, 2025 3 :56pm Dyslipidemia February 11, 2025 3:56p m Essential tremor February 11, 2025 3:56p m History of coronary artery bypass graft x 3 February 11, 2025 3:56pm Tremor February 11, 2025 3:56p m Type 2 diabetes mellitus February 11, 2025 3:56pm Additional Source Comments INFORMATION SOURCE (unrecogn ized section and content) DATE CREATED AUTHOR 10/02/2021 [facility] DATE CREATED AUTHOR AUTHOR'S ORGANIZ ATION 07/20/2022 [facility] DATE CREATED AUTHOR AUTHOR'S ORGANIZ ATION 07/20/2022 [employer] DATE CREATED AUTHOR AUTHOR'S ORGANIZ ATION 12/29/2022 [facility] DATE CREATED AUTHOR AUTHOR'S ORGANIZ ATION 11/15/2024 [facility] DATE CREATED AUTHOR AUTHOR'S ORGANIZ ATION 02/26/2025 [facility] DATE CREATED AUTHOR AUTHOR'S ORGANIZ ATION 04/28/2025 [facility] DATE CREATED AUTHOR AUTHOR'S ORGANIZ ATION 05/25/2025 [facility] DATE CREATED AUTHOR AUTHOR'S ORGANIZ ATION 05/31/2025 [facility] Source Comments (unrecognize d section and content) In the event this informatio n is protected by the Federal Confidentiality of Alcohol and Drug Abuse Patient Records regulations: The Federal rules restrict any use of the information to criminally investigate or prosecute any alcohol or drug abuse patient.[facility] the event this information is protected by the Federal Confidentiality of Alcohol and Drug Abuse Patient Records regulations: The Federal rules restrict any use of the information to criminally investigate or prosecute any alcohol or drug abuse patient.[facility] Hospital[facility] the event this information is protected by the Federal Confidentiality of Alcohol and Drug Abuse Patient Records regulations: The Federal rules restrict any use of the information to criminally investigate or prosecute any alcohol or drug abuse patient.[facility] Hospital[facility] the event this information is protected by the Federal Confidentiality of Alcohol and Drug Abuse Patient Records regulations: The Federal rules restrict any use of the information to criminally investigate or prosecute any alcohol or drug abuse patient.[facility] HospitalIn the event this information is protected by the Federal Confidentiality of Alcohol and Drug Abuse Patient Records regulations: The Federal rules restrict any use of the information to criminally investigate or prosecute any alcohol or drug abuse patient.[facility] Hospital[facility] the event this information is protected by the Federal Confidentiality of Alcohol and Drug Abuse Patient Records regulations: The Federal rules restrict any use of the information to criminally investigate or prosecute any alcohol or drug abuse patient.[facility] HospitalIn the event this information is protected by the Federal Confidentiality of Alcohol and Drug Abuse Patient Records regulations: The Federal rules restrict any use of the information to criminally investigate or prosecute any alcohol or drug abuse patient.[facility] HospitalIn the event this information is protected by the Federal Confidentiality of Alcohol and Drug Abuse Patient Records regulations: The Federal rules restrict any use of the information to criminally investigate or prosecute any alcohol or drug abuse patient.[facility] HospitalIn the event this information is protected by the Federal Confidentiality of Alcohol and Drug Abuse Patient Records regulations: The Federal rules restrict any use of the information to criminally investigate or prosecute any alcohol or drug abuse patient.[facility] HospitalIn the event this information is protected by the Federal Confidentiality of Alcohol and Drug Abuse Patient Records regulations: The Federal rules restrict any use of the information to criminally investigate or prosecute any alcohol or drug abuse patient.[facility] HospitalIn the event this information is protected by the Federal Confidentiality of Alcohol and Drug Abuse Patient Records regulations: The Federal rules restrict any use of the information to criminally investigate or prosecute any alcohol or drug abuse patient.[facility] HospitalIn the event this information is protected by the Federal Confidentiality of Alcohol and Drug Abuse Patient Records regulations: The Federal rules restrict any use of the information to criminally investigate or prosecute any alcohol or drug abuse patient.[facility] HospitalIn the event this information is protected by the Federal Confidentiality of Alcohol and Drug Abuse Patient Records regulations: The Federal rules restrict any use of the information to criminally investigate or prosecute any alcohol or drug abuse patient.[facility] HospitalIn the event this information is protected by the Federal Confidentiality of Alcohol and Drug Abuse Patient Records regulations: The Federal rules restrict any use of the information to criminally investigate or prosecute any alcohol or drug abuse patient.[facility] HospitalIn the event this information is protected by the Federal Confidentiality of Alcohol and Drug Abuse Patient Records regulations: The Federal rules restrict any use of the information to criminally investigate or prosecute any alcohol or drug abuse patient.[facility] HospitalIn the event this information is protected by the Federal Confidentiality of Alcohol and Drug Abuse Patient Records regulations: The Federal rules restrict any use of the information to criminally investigate or prosecute any alcohol or drug abuse patient.[facility] HospitalIn the event this information is protected by the Federal Confidentiality of Alcohol and Drug Abuse Patient Records regulations: The Federal rules restrict any use of the information to criminally investigate or prosecute any alcohol or drug abuse patient.[facility] HospitalIn the event this information is protected by the Federal Confidentiality of Alcohol and Drug Abuse Patient Records regulations: The Federal rules restrict any use of the information to criminally investigate or prosecute any alcohol or drug abuse patient.[facility] HospitalIn the event this information is protected by the Federal Confidentiality of Alcohol and Drug Abuse Patient Records regulations: The Federal rules restrict any use of the information to criminally investigate or prosecute any alcohol or drug abuse patient.[facility] HospitalIn the event this information is protected by the Federal Confidentiality of Alcohol and Drug Abuse Patient Records regulations: The Federal rules restrict any use of the information to criminally investigate or prosecute any alcohol or drug abuse patient.[facility] HospitalIn the event this information is protected by the Federal Confidentiality of Alcohol and Drug Abuse Patient Records regulations: The Federal rules restrict any use of the information to criminally investigate or prosecute any alcohol or drug abuse patient.[facility] HospitalIn the event this information is protected by the Federal Confidentiality of Alcohol and Drug Abuse Patient Records regulations: The Federal rules restrict any use of the information to criminally investigate or prosecute any alcohol or drug abuse patient.[facility] HospitalIn the event this information is protected by the Federal Confidentiality of Alcohol and Drug Abuse Patient Records regulations: The Federal rules restrict any use of the information to criminally investigate or prosecute any alcohol or drug abuse patient.[facility] HospitalIn the event this information is protected by the Federal Confidentiality of Alcohol and Drug Abuse Patient Records regulations: The Federal rules restrict any use of the information to criminally investigate or prosecute any alcohol or drug abuse patient.[facility] HospitalIn the event this information is protected by the Federal Confidentiality of Alcohol and Drug Abuse Patient Records regulations: The Federal rules restrict any use of the information to criminally investigate or prosecute any alcohol or drug abuse patient.[facility] HospitalIn the event this information is protected by the Federal Confidentiality of Alcohol and Drug Abuse Patient Records regulations: The Federal rules restrict any use of the information to criminally investigate or prosecute any alcohol or drug abuse patient.[facility] HospitalIn the event this information is protected by the Federal Confidentiality of Alcohol and Drug Abuse Patient Records regulations: The Federal rules restrict any use of the information to criminally investigate or prosecute any alcohol or drug abuse patient.[facility] HospitalIn the event this information is protected by the Federal Confidentiality of Alcohol and Drug Abuse Patient Records regulations: The Federal rules restrict any use of the information to criminally investigate or prosecute any alcohol or drug abuse patient.[facility] HospitalIn the event this information is protected by the Federal Confidentiality of Alcohol and Drug Abuse Patient Records regulations: The Federal rules restrict any use of the information to criminally investigate or prosecute any alcohol or drug abuse patient.[facility] HospitalIn the event this information is protected by the Federal Confidentiality of Alcohol and Drug Abuse Patient Records regulations: The Federal rules restrict any use of the information to criminally investigate or prosecute any alcohol or drug abuse patient.[facility] HospitalIn the event this information is protected by the Federal Confidentiality of Alcohol and Drug Abuse Patient Records regulations: The Federal rules restrict any use of the information to criminally investigate or prosecute any alcohol or drug abuse patient.[facility] HospitalIn the event this information is protected by the Federal Confidentiality of Alcohol and Drug Abuse Patient Records regulations: The Federal rules restrict any use of the information to criminally investigate or prosecute any alcohol or drug abuse patient.[facility] HospitalIn the event this information is protected by the Federal Confidentiality of Alcohol and Drug Abuse Patient Records regulations: The Federal rules restrict any use of the information to criminally investigate or prosecute any alcohol or drug abuse patient.[facility] HospitalIn the event this information is protected by the Federal Confidentiality of Alcohol and Drug Abuse Patient Records regulations: The Federal rules restrict any use of the information to criminally investigate or prosecute any alcohol or drug abuse patient.[facility] HospitalIn the event this information is protected by the Federal Confidentiality of Alcohol and Drug Abuse Patient Records regulations: The Federal rules restrict any use of the information to criminally investigate or prosecute any alcohol or drug abuse patient.[facility] HospitalIn the event this information is protected by the Federal Confidentiality of Alcohol and Drug Abuse Patient Records regulations: The Federal rules restrict any use of the information to criminally investigate or prosecute any alcohol or drug abuse patient.[facility] HospitalIn the event this information is protected by the Federal Confidentiality of Alcohol and Drug Abuse Patient Records regulations: The Federal rules restrict any use of the information to criminally investigate or prosecute any alcohol or drug abuse patient.[facility] HospitalIn the event this information is protected by the Federal Confidentiality of Alcohol and Drug Abuse Patient Records regulations: The Federal rules restrict any use of the information to criminally investigate or prosecute any alcohol or drug abuse patient.[facility] HospitalIn the event this information is protected by the Federal Confidentiality of Alcohol and Drug Abuse Patient Records regulations: The Federal rules restrict any use of the information to criminally investigate or prosecute any alcohol or drug abuse patient.[facility] HospitalIn the event this information is protected by the Federal Confidentiality of Alcohol and Drug Abuse Patient Records regulations: The Federal rules restrict any use of the information to criminally investigate or prosecute any alcohol or drug abuse patient.[facility] HospitalIn the event this information is protected by the Federal Confidentiality of Alcohol and Drug Abuse Patient Records regulations: The Federal rules restrict any use of the information to criminally investigate or prosecute any alcohol or drug abuse patient.[facility] HospitalIn the event this information is protected by the Federal Confidentiality of Alcohol and Drug Abuse Patient Records regulations: The Federal rules restrict any use of the information to criminally investigate or prosecute any alcohol or drug abuse patient.[facility] HospitalIn the event this information is protected by the Federal Confidentiality of Alcohol and Drug Abuse Patient Records regulations: The Federal rules restrict any use of the information to criminally investigate or prosecute any alcohol or drug abuse patient.[facility] HospitalIn the event this information is protected by the Federal Confidentiality of Alcohol and Drug Abuse Patient Records regulations: The Federal rules restrict any use of the information to criminally investigate or prosecute any alcohol or drug abuse patient.[facility] HospitalIn the event this information is protected by the Federal Confidentiality of Alcohol and Drug Abuse Patient Records regulations: The Federal rules restrict any use of the information to criminally investigate or prosecute any alcohol or drug abuse patient.[facility] HospitalIn the event this information is protected by the Federal Confidentiality of Alcohol and Drug Abuse Patient Records regulations: The Federal rules restrict any use of the information to criminally investigate or prosecute any alcohol or drug abuse patient.[facility] HospitalIn the event this information is protected by the Federal Confidentiality of Alcohol and Drug Abuse Patient Records regulations: The Federal rules restrict any use of the information to criminally investigate or prosecute any alcohol or drug abuse patient.[facility] HospitalIn the event this information is protected by the Federal Confidentiality of Alcohol and Drug Abuse Patient Records regulations: The Federal rules restrict any use of the information to criminally investigate or prosecute any alcohol or drug abuse patient.[facility] HospitalIn the event this information is protected by the Federal Confidentiality of Alcohol and Drug Abuse Patient Records regulations: The Federal rules restrict any use of the information to criminally investigate or prosecute any alcohol or drug abuse patient.[facility] HospitalIn the event this information is protected by the Federal Confidentiality of Alcohol and Drug Abuse Patient Records regulations: The Federal rules restrict any use of the information to criminally investigate or prosecute any alcohol or drug abuse patient.[facility] HospitalIn the event this information is protected by the Federal Confidentiality of Alcohol and Drug Abuse Patient Records regulations: The Federal rules restrict any use of the information to criminally investigate or prosecute any alcohol or drug abuse patient.[facility] HospitalIn the event this information is protected by the Federal Confidentiality of Alcohol and Drug Abuse Patient Records regulations: The Federal rules restrict any use of the information to criminally investigate or prosecute any alcohol or drug abuse patient.[facility] Reason for Visit (unrecogniz ed section and content) Reason Comments Annual Exam Specialty Diagnoses / Procedures Referred By Jamari t Referred To Contact Cardiology Diagnoses Atherosclerosis of coronary artery bypass graft without angina pectoris, unspecified whether chilkat or transplanted heart Procedures Follow Up In Cardiology Michele Sol DO [address] [facility] [address], [address] [address] Michele Sol DO [address] [facility], [place] [id number] Referral ID Status Reason Start Date Expiration Date V isits Requested Visits Authorized [id number] Authorized 08/04/2023 08/03/2024 1 1 Reason Comments Haji's esophagus with low grade dyspl eric Reason Comments Medication Update Question Reason Comments Appointment Confirmation Reason Comments Pre-Op Visit Reason Comments Patient Question Appointment Reason Comments Results Reason Comments Results Reason Comments Patient Update Patient Question Reason Comments Patient Question Reason Comments Follow Up Phone Call All Clear Reason Comments Barretts esophagus with high grade dyspl eric Reason Comments Haji's esophagus with low grade dyspl eric Reason Comments Orders Specialty Diagnoses / Procedures Referred By Contac t Referred To Contact ENDOSCOPY Diagnoses Haji's esophagus with low grade dysplasia Procedures ESOPHAGOGASTRODUODENOSCOPY [facility] Endoscopy [address] [address] Referral ID Status Reason Start Date Expiration Date Visits Re quested Visits Authorized [id number] 1 1 Reason Comments Orders Appointment Reason Onset Date Comments Refill Request 11/12/2022 Reason Comments Patient Update Reason Comments Cardiac Clearance Reason Comments Results Appointment Reason Comments Refill Request Reason Comments Refill Request Nexium 40 mg Reason Comments EKG Visit Specialty Diagnoses / Procedures Referred By Contac t Referred To Contact Diagnoses Bradycardia, unspecified Procedures ECG 12 Lead Gilberto Gaona, MILLINERY COPYIST-PEARL FISHERMAN [address] [facility] [address], [address] [address] Phone: tel: fax: Referral ID Status Reason Start Date Expiration Date V isits Requested Visits Authorized [id number] Authorized 02/27/2025 02/27/2026 1 1 Reason Comments Patient Question Endoscopy/Questions Care Teams (unrecognized sec tion and content) Coal Equipment Operator Relationship Specialty Start Date End Date Fortunato Schwartz MD [address] [place] [phone] PCP - [facility] 09/12/15 Edwardo zuniga Jr. [address] [place] [address] Referring Gastroenterology 12/03/21 Coal Equipment Operator Relationship Specialty Start Date End Date Fortunato Schwartz MD [address] [place] [address] PCP - [facility] 09/12/15 Edwardo Rodriguez Jr. [address] [place] [address] Referring Gastroenterology 12/03/21 Coal Equipment Operator Relationship Specialty Start Date End Date Fortunato Schwartz MD [address] [place] [address] PCP - General Family Practice 09/12/15 Edwardo Rodriguez Jr. [address] [address] Referring Gastroenterology 12/03/21 Coal Equipment Operator Relationship Specialty Start Date End Date Fortunato Schwartz MD [address] [place] [address] PCP - General Family Practice 09/12/15 Edwardo Rodriguez Jr. [address] [address] Referring Gastroenterology 12/03/21 Coal Equipment Operator Relationship Specialty Start Date End Date Fortunato Schwartz MD [address] [place] [address] PCP - General Family Practice 09/12/15 Edwardo Rodriguez Jr. [address] [address] Referring Gastroenterology 12/03/21 Coal Equipment Operator Relationship Specialty Start Date End Date Fortunato Schwartz MD [address] [place] [address] PCP - General Family Practice 09/12/15 Edwardo Rodriguez Jr. [address] [address] Referring Gastroenterology 12/03/21 Coal Equipment Operator Relationship Specialty Start Date End Date Fortunato Schwartz MD [address] [place] [address] PCP - General Family Practice 09/12/15 Edwardo Rodriguez Jr. [address] [address] Referring Gastroenterology 12/03/21 Coal Equipment Operator Relationship Specialty Start Date End Date Fortunato Schwartz MD [address] [place] [address] PCP - General Family Practice 09/12/15 Edwardo Rodriguez Jr. [address] [address] Referring Gastroenterology 12/03/21 Coal Equipment Operator Relationship Specialty Start Date End Date Fortunato Schwartz MD [address] [facility] [place] [address] PCP - General Family Medicine 09/12/15 Edwardo Rodriguez Jr., DO [address] [address] Referring Gastroenterology 12/03/21 Coal Equipment Operator Relationship Specialty Start Date End Date Fortunato Schwartz MD [address] [facility] [place] [address] PCP - General Family Medicine 09/12/15 Edwardo Rodriguez Jr., DO [address] [address] Referring Gastroenterology 12/03/21 Coal Equipment Operator Relationship Specialty Start Date End Date Fortunato Schwartz MD [address] [facility] [place] [address] PCP - General Family Medicine 09/12/15 Edwardo Rodriguez Jr., DO [address] [address] Referring Gastroenterology 12/03/21 Coal Equipment Operator Relationship Specialty Start Date End Date Fortunato Schwartz MD [address] [place] [address] PCP - General Family Medicine 09/12/15 Edwardo Rodriguez Jr., DO [address] [address] Referring Gastroenterology 12/03/21 Coal Equipment Operator Relationship Specialty Start Date End Date Fortunato Schwartz MD [address] [place] [address] PCP - General Family Medicine 09/12/15 Edwardo Rodriguez Jr., DO [address] [address] Referring Gastroenterology 12/03/21 Coal Equipment Operator Relationship Specialty Start Date End Date Fortunato Schwartz MD [address] [place] [address] PCP - General Family Medicine 09/12/15 Edwardo Rodriguez Jr., DO [address] [address] Referring Gastroenterology 12/03/21 Coal Equipment Operator Relationship Specialty Start Date End Date Fortunato Schwartz MD [address] [place] [address] PCP - General Family Medicine 09/12/15 Edwardo Rodriguez Jr., DO [address] [address] Referring Gastroenterology 12/03/21 Coal Equipment Operator Relationship Specialty Start Date End Date Fortunato Schwartz MD [address] [place] [address] PCP - General Family Medicine 09/12/15 Edwardo Rodriguez Jr., DO [address] [address] Referring Gastroenterology 12/03/21 Coal Equipment Operator Relationship Specialty Start Date End Date Fortunato Schwartz MD [address] [facility] [address] PCP - General Family Medicine 09/12/15 Edwardo Rodriguez Jr., DO [address] [address] Referring Gastroenterology 12/03/21 Coal Equipment Operator Relationship Specialty Start Date End Date Fortunato Schwartz MD [address] [facility] [address] PCP - General Family Medicine 09/12/15 Edwardo Rodriguez Jr., DO [address] [address] Referring Gastroenterology 12/03/21 Coal Equipment Operator Relationship Specialty Start Date End Date Fortunato Schwartz MD [address] [place] [address] PCP - General Family Medicine 09/12/15 Edwardo Rodriguez Jr., DO [address] [address] Referring Gastroenterology 12/03/21 Coal Equipment Operator Relationship Specialty Start Date End Date Fortunato Schwartz MD [address] [place] [address] PCP - General Family Medicine 09/12/15 Edwardo Rodriguez Jr., DO [address] [address] Referring Gastroenterology 12/03/21 Coal Equipment Operator Relationship Specialty Start Date End Date Fortunato Schwartz MD [address] [place] [address] PCP - General Family Medicine 09/12/15 Edwardo Rodriguez Jr., DO [address] [address] Referring Gastroenterology 12/03/21 Coal Equipment Operator Relationship Specialty Start Date End Date Fortunato Schwartz MD [address] [place] [address] PCP - General Family Medicine 09/12/15 Edwardo Rodriguez Jr., DO [address] [address] Referring Gastroenterology 12/03/21 Coal Equipment Operator Relationship Specialty Start Date End Date Fortunato Schwartz MD [address] [place] [address] PCP - General Family Medicine 09/12/15 Edwardo Rodriguez Jr., DO [address] [address] Referring Gastroenterology 12/03/21 Coal Equipment Operator Relationship Specialty Start Date End Date Fortunato Schwartz MD [address] [place] [address] PCP - General Family Medicine 09/12/15 Edwardo Rodriguez Jr., DO [address] [address] Referring Gastroenterology 12/03/21 Coal Equipment Operator Relationship Specialty Start Date End Date Fortunato Schwartz MD [address] [place] [address] PCP - General 09/28/1995 Coal Equipment Operator Relationship Specialty Start Date End Date Fortunato Schwartz MD [address] [place] [address] PCP - General Family Medicine 09/12/15 Edwardo Rodriguez Jr., DO [address] [address] Referring Gastroenterology 12/03/21 Coal Equipment Operator Relationship Specialty Start Date End Date Fortunato Schwartz MD [address] [place] [address] PCP - General Family Medicine 09/12/15 Edwardo Rodriguez Jr., DO [address] [address] Referring Gastroenterology 12/03/21 Coal Equipment Operator Relationship Specialty Start Date End Date Fortunato Schwartz MD [address] [place] [address] PCP - General Family Medicine 09/12/15 Edwardo Rodriguez Jr., DO [address] [address] Referring Gastroenterology 12/03/21 Coal Equipment Operator Relationship Specialty Start Date End Date Fortunato Schwartz MD [address] [place] [address] PCP - General Family Medicine 09/12/15 Edwardo Rodriguez Jr., DO [address] [place] [address] Referring Gastroenterology 12/03/21 Coal Equipment Operator Relationship Specialty Start Date End Date Fortunato Schwartz MD [address] [place] [phone] PCP - General Family Medicine 09/12/15 Edwardo Rodriguez Jr., DO [address] [place], [place] [phone] Referring Gastroenterology 12/03/21 Coal Equipment Operator Relationship Specialty Start Date End Date Sonja Quezada MD [address] [place] [address] PCP - General Family Medicine 04/12/24 Edwardo Rodriguez Jr., DO [address] [place] [address] Referring Gastroenterology 12/03/21 Coal Equipment Operator Relationship Specialty Start Date End Date Sonja Quezada MD [address] [place] [address] PCP - General Family Medicine 04/12/24 Edwardo Rodriguez Jr., DO [address] [place] [address] Referring Gastroenterology 12/03/21 Coal Equipment Operator Relationship Specialty Start Date End Date Sonja Quezada MD [address] [place] [address] PCP - General Family Medicine 04/12/24 Edwardo Rodriguez Jr., DO [address] [place] [address] Referring Gastroenterology 12/03/21 Coal Equipment Operator Relationship Specialty Start Date End Date Sonja Quezada MD [address] [place] [address] PCP - General [facility] 04/12/24 Edwardo Rodriguez Jr., DO [address] [place], [place] [id number] Referring Gastroenterology 12/03/21 Coal Equipment Operator Relationship Specialty Start Date End Date Sonja Quezada MD [address] [place] [id number] PCP - General [facility] Medicine 04/12/24 Edwardo Rodriguez Jr., DO [address] [place] [id number] Referring Gastroenterology 12/03/21 Coal Equipment Operator Relationship Specialty Start Date End Date Fortunato Schwartz MD [address] [place] [id number] PCP - General 09/28/1995 Coal Equipment Operator Relationship Specialty Start Date End Date Sonja Quezada MD [address] [place] [id number] PCP - General Family Medicine 04/12/24 Edwardo Rodriguez Jr., DO [address] [place] [phone] Referring Gastroenterology 12/03/21 Team Status: Active Member Role Status Dates NON STAFF Primary Care Provider Active Team Status: Inactive Member Role Status Dates NON STAFF Primary Care Provider Active Start: December 05, 2024 End: December 05, 2024 Bladimir Almonte DO Emergency Provider Active St art: December 05, 2024 End: December 05, 2024 Team Status: Active Member Role Status Dates Sonja Quezada MD Primary Care Provider Active Team Status: Inactive Member Role Status Dates Erwin Childers DO Emergency Provider Active Start: December 05, 2024 End: December 05, 2024 Sonja Quezada MD Primary Care Provider Active Start: December 05, 2024 End: December 05, 2024 Coal Equipment Operator Relationship Specialty Start Date End Date Sonja Quezada MD [address] [place] [id number] PCP - General Family Medicine 04/12/24 Edwardo Rodriguez Jr., DO [address] [place] [phone] Referring Gastroenterology 12/03/21 Coal Equipment Operator Relationship Specialty Start Date End Date Sonja Quezada MD [address] [place] [id number] PCP - General Family Medicine 04/12/24 Edwardo Rodriguez Jr., DO [address] [place] [id number] Referring Gastroenterology 12/03/21 Team Status: Inactive Member Role Status Dates Sonja Quezada MD Primary Care Provider Active Start: February 11, 2025 End: February 17, 2025 Erwin Childers DO Emergency Provider Active Start: February 11, 2025 End: February 17, 2025 Marcos Neves DO Admit Provider Active Start: February 11, 2025 End: February 17, 2025 Acosta Bo MD Attending Provider Active Start: February 11, 2025 End: February 17, 2025 Natty Stout MD Referring Provider Active Start: February 11, 2025 End: February 17, 2025 Coal Equipment Operator Relationship Specialty Start Date End Date Sonja Quezada MD [address] [place] [address] [place] [address] PCP - General Family Medicine 11/30/24 Coal Equipment Operator Relationship Specialty Start Date End Date Sonja Quezada MD [address] [place] [phone] PCP - General Family Medicine 04/12/24 Edwardo Rodriguez Jr., DO [address] [place] [id number] Referring Gastroenterology 12/03/21 Coal Equipment Operator Relationship Specialty Start Date End Date Sonja Quezada MD [address] [place] [address] [place] [address] PCP - General Family Medicine 11/30/24 Coal Equipment Operator Relationship Specialty Start Date End Date Sonja Quezada MD [address] [place] [id number] PCP - General Family Medicine 04/12/24 Edwardo Rodriguez Jr., DO [address] [place] [id number] Referring Gastroenterology 12/03/21 Goals (unrecognized section and content) Goals may be documented in a n alternate section FOR RECORDS PERTAINING TO PATIENTS WHO ARE OR HAVE BEEN ENROLLED IN A CHEMICAL DEPENDENCY/SUBSTANCEABUSE PROGRAM, SOME INFORMATION MAY BE OMITTED. This clinical summary was aggregated from multiple sources. Caution should be exercised in using it in the provision of clinical care. This summary normalizes information from multiple sources, and as a consequence, information in this document may materially change the coding, format and clinical context of patient data. In addition, data may be omitted in some cases. CLINICAL DECISIONS SHOULD BE BASED ON THE PRIMARY CLINICAL RECORDS. [facility] [employer] [facility]. provides no warranty or guarantee of the accuracy or completeness of information in this document.
== END 2025-06-08 14:07 | disposition home or self-care (01) ==
LOC: MAMMO 14:06
PROVIDERS: PCP Nurse Practitioner; Visit Provider Nurse Practitioner
DX: E03.9 Hypothyroidism, unspecified (principal); I10 Essential (primary) hypertension; E78.5 Hyperlipidemia, unspecified; Z12.31 Encounter for screening mammogram for malignant neoplasm of breast; Z87.891 Personal history of nicotine dependence; Z68.24 Body mass index [BMI] 24.0-24.9, adult; Z80.8 Family history of malignant neoplasm of other organs or systems
CPT/HCPCS: 77063; 77067

== ENCOUNTER 2025-07-06 07:44 | Outpatient (RCR) | payer MEDICARE, SELFPAY ==
--- NOTE | 2025-04-04 13:20 | CR1_ITS ---
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 Electronically Signed On 04-05-2025 10:03:28 EDT by Onur Gorman
--- NOTE | 2025-04-13 14:25 | CR1_ITS ---
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 Interpretive Statements Patient may continue cardiac rehab as outlined in the treatment plan. Electronically Signed On 05-05-2025 10:14:37 EDT by TAO BOGGS M.D.
--- NOTE | 2025-04-14 08:32 | CR1_ITS ---
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 Interpretive Statements Patient may continue cardiac rehab as outlined in the treatment plan. Electronically Signed On 05-05-2025 10:16:17 EDT by TAO BOGGS M.D.
--- NOTE | 2025-05-02 14:20 | CR1_ITS ---
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 Interpretive Statements Patient may continue cardiac rehab as outlined in the treatment plan. Electronically Signed On 05-05-2025 10:26:24 EDT by TAO BOGGS M.D.
--- NOTE | 2025-05-30 14:22 | CR1_ITS ---
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 Order Number: [id number] Josep MD: TAO BOGGS M.D. Interpretive Statements Patient may continue cardiac rehab as outlined in the treatment plan. Electronically Signed On 06-14-2025 17:56:44 EDT by TAO BOGGS M.D.
--- NOTE | 2025-06-28 10:49 | CR1_ITS ---
The [facility] Test Date: 2025-06-28 Pat Name: WILEY RAYMUNDO Department: Room: - Gender: Female Retail Specialist: : 1945 Requested By: KENY SIMPSON Order Number: [id number] Josep MD: TAO BOGGS M.D. Interpretive Statements Patient may continue cardiac rehab as outlined in the treatment plan. Electronically Signed On 06-28-2025 19:11:54 EDT by TAO BOGGS M.D.
--- NOTE | 2025-07-26 14:09 | PC.NURSE ---
Outreach letter sent to patient due to non-attendance. We have spoken to patient and were made aware that finances are a factor in attending. This was also addressed in the letter and she was encouraged to switch to phase 3 rehab if that will be more affordable for her at this time. We encourage her to return as she has noted she is seeing great benefit from attendance.
--- NOTE | 2025-07-31 07:55 | CR1_ITS ---
The [facility] Test Date: 2025-07-31 Pat Name: WILEY RAYMUNDO Department: Room: - Gender: Female Estimating Manager: : 1945 Requested By: KENY SIMPSON Order Number: [id number] Josep MD: TAO BOGGS M.D. Interpretive Statements Patient may continue cardiac rehab as outlined in the treatment plan. Electronically Signed On 07-31-2025 12:49:05 EST by TAO BOGGS M.D.
--- NOTE | 2025-08-28 09:47 | CR1_ITS ---
The [facility] Test Date: 2025-08-28 Pat Name: WILEY RAYMUNDO Department: Room: - Gender: Female Syrup Mixer Assistant: : 1945 Requested By: KENY SIMPSON Order Number: [id number] Josep MD: TAO BOGGS M.D. Interpretive Statements Patient has completed rehab program and have noted outcomes. Electronically Signed On 08-28-2025 22:34:08 EST by TAO BOGGS M.D.
== END 2025-08-28 09:54 | disposition home or self-care (01) ==
LOC: CR 07:44
PROVIDERS: PCP Family Medicine; Visit Provider Nurse Practitioner
DX: I21.9 Acute myocardial infarction, unspecified (principal); Z95.1 Presence of aortocoronary bypass graft; Z98.61 Coronary angioplasty status; I48.91 Unspecified atrial fibrillation
CPT/HCPCS: 93798